=== PATIENT | male | born 1950 | race Caucasian/White ===

== ENCOUNTER → 2018-01-09 10:13 | Outpatient (CLI) | payer MEDICARE, SELFPAY ==
[2018-01-09 12:37] LABS: Free T4, Direct Thyroxine 0.96 ng/dL (0.78-2.19)
[2018-01-09 12:51] LABS: Thyroid Stimulating Hormone 0.05 uIU/mL (0.47-4.68)
== END ==
PROVIDERS: PCP Family Medicine; Visit Provider Nurse Practitioner
DX: E03.9 Hypothyroidism, unspecified (principal)
CPT/HCPCS: 36415; 84439; 84443

== ENCOUNTER → 2018-04-23 07:48 | Outpatient (CLI) | payer MEDICARE, SELFPAY ==
[2018-04-23 08:18] LABS: Add Manual Diff / Slide Review NO; Basophils Percent Auto 2.3 % (0-2); Eosinophils Percent Auto 5.6 % (2-4); Hematocrit 38.6 % (41-53); Hemoglobin 12.9 g/dL (13.5-17.5); Lymphocytes Percent Auto 28.8 % (25-40); Mean Corpuscular HGB Conc 33.5 % (30-36); Mean Corpuscular Hemoglobin 29.1 PG (26-34); Mean Corpuscular Volume 86.8 fL (80-100); Monocytes Percent Auto 6.4 % (3-14); Neutrophils Absolute Auto 3400 /uL (3000-5900); Neutrophils Percent Auto 56.9 % (50-75); Platelet Count 255 X10^3/uL (150-400); Red Blood Cell Count 4.45 X10^6/uL (4.5-5.9); Red Cell Distribution Width 13.6 % (11.6-14.8)
[2018-04-23 08:46] LABS: Alanine Aminotransferase 25 IU/L (21-72); Albumin 4.1 g/dL (3.5-5.0); Albumin Globulin Ratio 1.2 (1.0-2.8); Alkaline Phosphatase 62 U/L (38-126); Aspartate Aminotransferase 28 IU/L (17-59); BUN Creatinine Ratio 12.9 (6-22); Bilirubin Total 0.4 mg/dL (0.2-1.3); Blood Urea Nitrogen 18 mg/dL (9-20); Calcium 9.1 mg/dL (8.4-10.2); Carbon Dioxide 33 mmol/L (22-32); Chloride 102 mmol/L (98-107); Cholesterol 199 mg/dL (140-199); Estimated Glomerular Filt Rate 50.4 mL/min (>60); Globulin 3.4 g/dL (1.7-4.1); Glucose 86 mg/dL (80-110); HDL Cholesterol 47 mg/dL (40-60); HEMOLYSIS < 15 (0-50); LDL Cholesterol Calculated 131 mg/dL (<100); Potassium 4.3 mmol/L (3.4-5.1); Sodium 145 mmol/L (137-145); Total Protein 7.5 g/dL (6.3-8.2); Triglycerides 106 mg/dL (35-150)
[2018-04-23 09:14] LABS: TSH w/ Reflex to FT4 0.03 uIU/mL (0.47-4.68)
[2018-04-23 09:20] LABS: Prostate Specific Antigen Scrn < 0.064 ng/mL (0.1-4.0)
[2018-04-23 09:45] LABS: Free T4, Direct Thyroxine 0.89 ng/dL (0.78-2.19)
== END ==
PROVIDERS: Family Provider Nurse Practitioner; PCP Family Medicine; Referring Provider Internal Medicine Gastroenterology; Visit Provider Family Medicine
DX: E03.9 Hypothyroidism, unspecified (principal); E27.40 Unspecified adrenocortical insufficiency; N18.2 Chronic kidney disease, stage 2 (mild)
CPT/HCPCS: 36415; 80053; 80061; 84439; 84443; 85025; G0103

== ENCOUNTER 2018-07-12 00:39 | Emergency (ER) | payer MEDICARE, SELFPAY ==
[2018-07-12] VITALS (8 sets, daily range): BP systolic 73–132; BP diastolic 52–88; PULSE 62–85; RESP 16–21; TEMP 36.3–36.4; O2SAT 92–100; BMI 36.6
--- NOTE | 2018-07-12 00:44 | DI.RAD.S_ITS ---
PROCEDURE: XR CHEST 1V INDICATIONS: syncope TECHNIQUE: One view of the chest was acquired. COMPARISON: [facility], , CHEST 1 VIEW, 08/28/2017, 5:16. FINDINGS: Surgical changes and devices: None. Lungs and pleura: There is persistent elevation of left hemidiaphragm with chronic appearing left basilar scarring/atelectasis. Blunting of left costophrenic angle is again seen suggestive of trace left pleural effusion/thickening. No definite focal infiltrate. Mediastinum: Mediastinal contours appear normal. Heart size is enlarged. Bones and chest wall: No suspicious bony lesions. Overlying soft tissues appear unremarkable. IMPRESSION: Persistent elevation of left hemidiaphragm with chronic appearing trace left pleural thickening/pleural effusion and left basilar scarring/atelectasis. No definite focal infiltrate or gross pneumothorax. Dictated by: Patrick Valdez M.D. on 07/12/2018 at 9:59 Approved by: Patrick Valdez M.D. on 07/12/2018 at 10:00
--- NOTE | 2018-07-12 00:54 | DI.CT.S_ITS ---
PROCEDURE: CT ANGIO CHEST ABDOMEN PELVIS INDICATIONS: ab pain, back pain, syncope hypotension TECHNIQUE: Precontrast 5 mm thick sections acquired from the lung apices to the iliac crests. After the administration of intravenous contrast, 2.5 mm thick sections again acquired from the lung apices to the iliac crests. Maximum intensity projection (MIP) oblique sagittal and coronal reformats were then acquired. For radiation dose reduction, the following was used: automated exposure control. COMPARISON: [facility], CT, ABDOMEN/PELVIS WITH CONTRAST, 11/12/2016, 9:38. FINDINGS: Image quality: Excellent. AORTA: Ascending thoracic aorta measures up to 4.2 cm in largest AP diameter. Descending thoracic aorta measures up to 2.8 cm in largest AP diameter. Abdominal aorta measures up to 2.6 cm in largest AP diameter. There is no aortic dissection. Mild to moderate amount of atherosclerotic calcifications are seen scattered in thoracic and abdominal aorta. CHEST: Lungs and pleura: Atelectasis in posterior aspect of bilateral lower lung garcia are seen. Subtle hazy opacity is seen in posterior aspect of bilateral lung garcia suggestive of mild pulmonary edema. No pleural effusions or pneumothorax. Central and peripheral airways are patent and normal in caliber. Mediastinum: Heart size is enlarged. No pericardial effusion. No mediastinal or hilar adenopathy by size criteria. Central pulmonary arteries are normal in size. Esophagus is normal in caliber. No hiatal hernias. Bones and chest wall: No axillary adenopathy by size criteria. Thyroid gland is not well-visualized on this study. No suspicious bony lesions. No vertebral body compression fractures. ABDOMEN: Vasculature: Celiac trunk and mesenteric arteries are patent. Renal arteries are also patent. Solid organs: Liver is normal in size and enhancement. Hepatic steatosis is seen. Gallbladder is within normal limits. Biliary system is non dilated. Pancreas enhances normally. Spleen is normal in size and enhancement. No adrenal nodules. Right kidney is normal in size and enhancement, without hydronephrosis. Left kidney is surgically absent. Peritoneum and bowel: No free fluid or air. No evidence of bowel obstruction. Mild wall thickening involving sigmoid colon and rectum is seen with mild pericolonic fat stranding. No small bowel wall thickening. Nodes and vessels: No retroperitoneal or mesenteric adenopathy by size criteria. Inferior vena cava is normal in morphology. Miscellaneous: Nonobstructing ventral hernia is seen containing a short segment of small bowel. PELVIS: Genitourinary: The urinary bladder is near completely decompressed. No obvious bladder wall abnormality is seen.. Miscellaneous: Right inguinal hernia is seen containing fat and a portion of the urinary bladder. No inguinal lymphadenopathy. Bones: No suspicious bony lesions. No vertebral body compression fractures. IMPRESSION: 1. Mild ascending thoracic aortic aneurysm. No descending thoracic aortic or abdominal aortic aneurysm. No aortic dissection. 2. Suggestion of infectious inflammatory colitis involving the rectosigmoid colon. No bowel obstruction. No free fluid or free air. Liquid density stool throughout the colon which may suggest mild solution. 3. Bibasilar dependent atelectasis. Suggestion of mild pulmonary edema. Cardiac megaly. 4. Nonobstructive ventral hernia in abdomen containing a small bowel loop. Right inguinal hernia containing fat and portion of urinary bladder. 5. Prior left nephrectomy. No significant discrepancy. Dictated by: Patrick Valdez M.D. on 07/12/2018 at 9:11 Approved by: Patrick Valdez M.D. on 07/12/2018 at 9:18
[2018-07-12] MEDS: SODIUM CHLORIDE 0.9% 1,000 ML 1000 ML IV ×2 (00:58→02:09)
[2018-07-12 01:03] LABS: Add Manual Diff / Slide Review NO; Basophils Absolute Auto 0 /uL (0-100); Basophils Percent Auto 0.3 % (0-2); Eosinophils Absolute Auto 200 /uL (0-450); Eosinophils Percent Auto 1.3 % (2-4); Hematocrit 43.5 % (41-53); Hemoglobin 14.6 g/dL (13.5-17.5); Lymphocytes Absolute Auto 2500 /uL (1100-4500); Lymphocytes Percent Auto 15.8 % (25-40); Mean Corpuscular HGB Conc 33.5 % (30-36); Mean Corpuscular Hemoglobin 28.9 PG (26-34); Mean Corpuscular Volume 86.3 fL (80-100); Monocytes Absolute Auto 600 /uL (0-900); Monocytes Percent Auto 3.9 % (3-14); Neutrophils Absolute Auto 12500 /uL (1500-7000); Neutrophils Percent Auto 78.7 % (50-75); Platelet Count 298 X10^3/uL (150-400); Red Blood Cell Count 5.04 X10^6/uL (4.5-5.9); Red Cell Distribution Width 13.9 % (11.6-14.8); White Blood Cell Count 15.9 X10^3/uL (4.5-11.0)
[2018-07-12 01:08] LABS: Lactate (Lactic Acid) 1.3 mmol/L (0.7-2.1)
[2018-07-12 01:09] LABS: Alanine Aminotransferase 25 IU/L (21-72); Albumin 4.4 g/dL (3.5-5.0); Albumin Globulin Ratio 1.1 (1.0-2.8); Alkaline Phosphatase 81 U/L (38-126); Aspartate Aminotransferase 24 IU/L (17-59); BUN Creatinine Ratio 18.2 (6-22); Bilirubin Total 0.2 mg/dL (0.2-1.3); Blood Urea Nitrogen 31 mg/dL (9-20); Calcium 9.9 mg/dL (8.4-10.2); Carbon Dioxide 32 mmol/L (22-32); Chloride 97 mmol/L (98-107); Creatine Kinase 47 U/L (55-170); Estimated Glomerular Filt Rate 40.3 mL/min (>60); Globulin 3.9 g/dL (1.7-4.1); Glucose 96 mg/dL (80-110); HEMOLYSIS < 15 (0-50); Potassium 3.8 mmol/L (3.4-5.1); Sodium 140 mmol/L (137-145); Total Protein 8.3 g/dL (6.3-8.2)
[2018-07-12 01:18] LABS: Lipase 175 U/L (23-300)
[2018-07-12 01:21] LABS: Troponin I < 0.012 ng/mL (0.01-0.034)
[2018-07-12] MEDS: ONDANSETRON 4 MG/2 ML INJ IV (01:25)
[2018-07-12] MEDS: PANTOPRAZOLE 40 MG VIAL IV (01:35)
--- NOTE | 2018-07-12 01:50 | PC.NURSE ---
Pt became nauseated at completion of CT scan and vomited copious orange chunky emesis. Pt turned to left side to protect airway. Dr Carson notified, pt given 4mg zofran IV. 4 person assist to slide from CT table to gurney. Pt transported back to room by RN with tablet repair. Pt reports feeling much better after vomiting. Complete linen change done and pt cleaned up. VSS. Dr Carson aware of above.
--- NOTE | 2018-07-12 02:27 | ED_ITS ---
HPI - Syncope General Chief Complaint: Syncope Stated Complaint: syncope Time Seen by Provider: 07/12/18 00:43 Source: patient Mode of arrival: ambulatory Limitations: no limitations History of Present Illness HPI narrative: patient is a 68-year-old male who presents with 2 syncopal episodes and severe abdominal pain and diarrhea. He feels like he is going to throw up as well. This all started at 10:30 a.m. this evening. He was on the toilet when he passed out his had to slapped him to wake him up it was just for under minute. He then did a again which is when she called 911. Both times were separate on the toilet. He had least 3 episodes large amounts of diarrhea. He has also thrown up and been nauseous. No fever or chills. No one else is sick he was well earlier in the day. MD complaint: collapsed Related Data Home Medications Medication Instructions Recorded Confirmed cyanocobalamin (vitamin B-12) 1,000 mcg PO QDAY #0 tab 03/04/16 04/23/18 [Vitamin B-12] melatonin 3 mg PO HS #0 06/14/16 04/23/18 tamsulosin [Flomax] 0.4 mg PO QDAY #0 06/14/16 04/23/18 ascorbic acid (vitamin C) 500 mg mg PO cap 04/23/18 04/23/18 capsule cholecalciferol (vitamin D3) 2,000 2,000 unit PO DAILY 04/23/18 04/23/18 unit capsule lactobacillus combination no.4 3 3,000 mmu cells PO DAILY 04/23/18 04/23/18 billion cell capsule mesalamine 1.2 gram tablet,delayed 2.4 gram PO DAILY 04/23/18 04/23/18 release multivitamin capsule 1 cap PO DAILY 04/23/18 04/23/18 prednisolone 5 mg tablet 5 mg PO DAILY 04/23/18 04/23/18 Previous Rx's Medication Instructions Recorded loperamide 2 mg PO SEE INSTRUCTIONS #20 cap 05/31/16 ondansetron [Zofran ODT] 4 mg SUBLINGUAL Q6HP PRN #15 odt 05/31/16 hydrocortisone 10 tab PO SEE INSTRUCTIONS #120 tab 08/07/16 levothyroxine 88 mcg PO QDAY #30 tab 08/22/16 famciclovir 250 mg tablet 250 mg PO BID #60 tab 03/13/18 fluticasone 50 mcg/actuation nasal 1 spray INTRANASAL BID #1 bot 04/23/18 spray,suspension nystatin-triamcinolone 100,000 1 applictn TOP BID #60 gram 04/23/18 unit/g-0.1 % topical cream ondansetron 4 mg PO Q6-8H PRN #10 tab 07/12/18 Allergies Allergy/AdvReac Type Severity Reaction Status Date / Time cefazolin [CEFAZOLIN] Allergy Severe rash Unverified 04/23/18 11:18 levofloxacin [From LEVAQUIN] Allergy Mild Unverified 04/23/18 11:18 morphine [MORPHINE] Allergy Mild STOPPED Unverified 04/23/18 11:18 BREATHING. adhesive AdvReac Unknown Unverified 04/23/18 11:18 Review of Systems Review of Systems ROS Unobtainable: All systems reviewed & are unremarkable except as noted in HPI and below Constitutional Denies chills, Denies fever(s), Denies lethargy and Denies weakness Eyes Denies change in vision, Denies eye discharge, Denies irritation and Denies loss of vision Cardiovascular Reports syncope, Denies dyspnea and Denies dyspnea on exertion Respiratory Denies cough, Denies dyspnea, Denies dyspnea on exertion and Denies wheezing Gastrointestinal Gastrointestinal: Reports as per HPI, Reports abdominal pain, Reports diarrhea, Reports nausea and Reports vomiting Musculoskeletal Denies back pain, Denies muscle weakness, Denies numbness and Denies tingling Integumentary/Breasts Denies pruritus, Denies erythema, Denies rash and Denies wounds Neurologic Reports syncope, Denies loss of vision, Denies numbness, Denies tingling and Denies weakness Allergic/Immunologic Denies wheezing COUNTS INCLUDE 234 BEDS AT THE [facility] Medical History Small bowel obstruction (Chronic) Chronic adrenal insufficiency (Chronic 08/07/16) Onychomycosis (Chronic) Candidal intertrigo (Chronic) Acquired hypothyroidism (Chronic) Squamous cell carcinoma of oropharynx (Resolved) Ulcerative colitis (Chronic) 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 difficile colitis (Chronic ~06/2013) CMV (cytomegalovirus) status positive (Chronic) Pseudopolyp of ascending colon (Chronic) Squamous cell cancer of tongue (Chronic) Ulcerative colitis (Chronic) Surgical History Fractures (Resolved) History of neck surgery (Resolved ~2006) History of nephrectomy (~08/2015) History of third molar tooth extraction History of tonsillectomy (~1955) History of tonsillectomy (~1956) History of tonsillectomy (~1959) Status post colonoscopy Exam Initial Vital Signs Initial Vital Signs: Vital Signs Pulse Rate 63 07/12/18 00:48 Respiratory Rate 18 07/12/18 00:48 Blood Pressure 93/52 L 07/12/18 00:48 Pulse Oximetry 92 07/12/18 00:48 GENERAL: Pale overweight diaphoretic weak appearing male HEENT: Head atraumatic,EOMI, pupils reactive, face symmetric dry mucous membranes CARDIOVASCULAR: Regular rate and rhythm without murmurs, rubs or gallops. RESPIRATORY: Breath sounds equal bilaterally, no wheezes rales or rhonchi. ABDOMEN: Soft, obese, ventral hernia- reproducible, tender in epigastric no guarding or rebound no pulsatile masses EXTREMITIES: Normal range of motion, no clubbing or edema. Neurovascularly intact NEUROLOGICAL: Alert and oriented x4 normal speech SKIN: Warm, dry, no laceration, no petechiae, no rashes or lesions. Course Orders Ordered: ED Orders 07/12/18 00:44 XR chest 1V Stat EKG-12 Lead Stat 07/12/18 00:54 CT angio chest abdomen pelvis Stat 07/12/18 00:55 Complete Blood Count AUTO DIFF Stat Comprehensive Metabolic Panel Stat Lactate (Lactic Acid) Stat Lipase Stat Troponin & CK Cardiac Panel Stat Discontinued Medications Sodium Chloride (Normal Saline 0.9%) 1,000 mls @ 1,000 mls/hr IV BOLUS ONE Stop: 07/12/18 01:42 Last Infusion: 07/12/18 02:09 Dose: 0 mls/hr Admin: 07/12/18 00:58 Dose: 1,000 mls/hr Sodium Chloride (Normal Saline 0.9%) 1,000 mls @ 1,000 mls/hr IV BOLUS ONE Stop: 07/12/18 02:22 Last Infusion: 07/12/18 03:20 Dose: 0 mls/hr Admin: 07/12/18 02:09 Dose: 1,000 mls/hr Ondansetron HCl (Zofran) 4 mg IV NOW ONE Stop: 07/12/18 01:24 Last Admin: 07/12/18 01:25 Dose: 4 mg Ondansetron HCl (Zofran Odt Prepack) 1 bottle MISC SEEINSTR ONE Stop: 07/12/18 02:33 Last Admin: 07/12/18 02:44 Dose: 1 bottle Pantoprazole Sodium (Protonix) 40 mg IV NOW ONE Stop: 07/12/18 01:24 Last Admin: 07/12/18 01:35 Dose: 40 mg Vital Signs - 8 hr 07/12/18 00:48 07/12/18 00:58 07/12/18 01:00 Temperature 97.4 F L Pulse Rate 63 62 62 Respiratory Rate 18 20 21 Blood Pressure 93/52 L Blood Pressure [Left Arm] 81/59 L 73/55 L Pulse Oximetry 92 94 94 07/12/18 01:49 07/12/18 02:01 07/12/18 02:30 Temperature Pulse Rate 67 67 69 Respiratory Rate 16 16 18 Blood Pressure Blood Pressure [Left Arm] 109/77 132/74 122/78 Pulse Oximetry 95 92 100 07/12/18 03:20 07/12/18 03:21 Temperature 97.6 F Pulse Rate 83 85 Respiratory Rate 20 18 Blood Pressure 124/88 Blood Pressure [Left Arm] Pulse Oximetry 94 95 MDM - Syncope Medical Records Attestation: I reviewed the patient's medical records. Lab Data Attestation: I reviewed the patient's lab results. Result diagrams: 07/12/18 00:55 07/12/18 00:55 Lab Results 07/12/18 07/12/18 07/12/18 Range/Units 00:55 00:55 00:55 WBC 15.9 H (4.5-11.0) X10^3/uL RBC 5.04 (4.5-5.9) X10^6/uL Hgb 14.6 (13.5-17.5) g/dL Hct 43.5 (41-53) % MCV 86.3 (80-100) fL MCH 28.9 (26-34) PG MCHC 33.5 (30-36) % RDW 13.9 (11.6-14.8) % Plt Count 298 (150-400) X10^3/uL Neut % (Auto) 78.7 H (50-75) % Lymph % (Auto) 15.8 L (25-40) % [place] % (Auto) 3.9 (3-14) % Eos % (Auto) 1.3 L (2-4) % Baso % (Auto) 0.3 (0-2) % Neut # (Auto) 24105 H (2975-4499) /uL Lymph # (Auto) 2500 (6464-6005) /uL [place] # (Auto) 600 (0-900) /uL Eos # (Auto) 200 (0-450) /uL Baso # (Auto) 0 (0-100) /uL Sodium (137-145) mmol/L Potassium (3.4-5.1) mmol/L Chloride (98-107) mmol/L Carbon Dioxide (22-32) mmol/L BUN (9-20) mg/dL Creatinine (0.66-1.25) mg/dL Estimated GFR (>60) mL/min BUN/Creatinine Ratio (6-22) Glucose (80-110) mg/dL Lactate 1.3 (0.7-2.1) mmol/L Calcium (8.4-10.2) mg/dL Total Bilirubin (0.2-1.3) mg/dL AST (17-59) IU/L ALT (21-72) IU/L Alkaline Phosphatase (38-126) U/L Total Creatine Kinase (55-170) U/L CK-MB (CK-2) CK-MB (CK-2) Rel Index Troponin I (0.01-0.034) ng/mL Total Protein (6.3-8.2) g/dL Albumin (3.5-5.0) g/dL Globulin (1.7-4.1) g/dL Albumin/Globulin Ratio (1.0-2.8) Lipase 175 (23-300) U/L 07/12/18 Range/Units 00:55 WBC (4.5-11.0) X10^3/uL RBC (4.5-5.9) X10^6/uL Hgb (13.5-17.5) g/dL Hct (41-53) % MCV (80-100) fL MCH (26-34) PG MCHC (30-36) % RDW (11.6-14.8) % Plt Count (150-400) X10^3/uL Neut % (Auto) (50-75) % Lymph % (Auto) (25-40) % [place] % (Auto) (3-14) % Eos % (Auto) (2-4) % Baso % (Auto) (0-2) % Neut # (Auto) (0073-4188) /uL Lymph # (Auto) (7118-9403) /uL [place] # (Auto) (0-900) /uL Eos # (Auto) (0-450) /uL Baso # (Auto) (0-100) /uL Sodium 140 (137-145) mmol/L Potassium 3.8 (3.4-5.1) mmol/L Chloride 97 L (98-107) mmol/L Carbon Dioxide 32 (22-32) mmol/L BUN 31 H (9-20) mg/dL Creatinine 1.70 H (0.66-1.25) mg/dL Estimated GFR 40.3 L (>60) mL/min BUN/Creatinine Ratio 18.2 (6-22) Glucose 96 (80-110) mg/dL Lactate (0.7-2.1) mmol/L Calcium 9.9 (8.4-10.2) mg/dL Total Bilirubin 0.2 (0.2-1.3) mg/dL AST 24 (17-59) IU/L ALT 25 (21-72) IU/L Alkaline Phosphatase 81 (38-126) U/L Total Creatine Kinase 47 L (55-170) U/L CK-MB (CK-2) TNP CK-MB (CK-2) Rel Index TNP Troponin I < 0.012 (0.01-0.034) ng/mL Total Protein 8.3 H (6.3-8.2) g/dL Albumin 4.4 (3.5-5.0) g/dL Globulin 3.9 (1.7-4.1) g/dL Albumin/Globulin Ratio 1.1 (1.0-2.8) Lipase (23-300) U/L Point of Care Testing Glucose POC 102 Imaging Data Chest x-ray: Attestation: I personally reviewed and interpreted this imaging study as follows: My impression: similar to previous chest x-ray a left pleural effusion versus stomach CT angio chest abdomen pelvis: Radiologist's impression: mini shifter report: Negative for aortic dissection /leak. Ectasias of ascending thoracic aorta. Retro sigmoid protocol colitis be related to infection or inflammatory bowel. There is liquid into the stool throughout the colon and rectum consistent with malabsorption diarrhea. Normal caliber appendix. No free air abscess or evidence of mechanical bowel obstruction. Nonobstructive but ventral hernia in the abdomen contained a small bowel loop. Subsegmental ate;ectatoc changes of the lower lungs. Left nephrectomy. Right inguinal hernia contains fat and part of right urinary bladder. Left inguinal hernia contains fat. ECG Data Attestation: I personally reviewed and interpreted this ECG as follows: Prior ECG tracings: available for review Interpretation: sinus rhythm rate 64 appear interval [address] changes MDM Narrative Medical decision making narrative: patient had a syncopal reactions while having bowel movements. This is consistent with vasovagal reaction. He was persistently hypotensive is and diaphoretic with some abdominal discomfort. Decision to rule out aneurysm is with CT. CT is negative. While in CT patient vomited a low large amount of copious fluid. Since then his blood pressure has returned to normal he an he is overall feeling better. He is tolerating oral fluids. He is ambulatory to the restroom no longer feels dizzy or lightheaded. Patient blood pressure has been above 100 consistently. Patient and both feel ready and able to go home. All questions have been addressed. Discharge Plan Departure Patient Disposition: Home Clinical Impression: Gastroenteritis, Syncope Discharge Date/Time: 07/12/18 03:25 Interventions: ED Discharge Assessment Last Done: 07/12/18 03:21 Instructions: DI for Syncope in Adults (Fainting), DI for Viral Gastroenteritis -- Adult Activity Restrictions/Additional Instructions: *You have been diagnosed with syncopal episode and gastroenteritis *What to do: increase fluid intake recommend Gatorade or Gatorade like substance *Continue to take medications as directed: FAXED TO [facility] Zofran 4 mg every 6-8 hours if needed for nausea vomiting *Follow up with your primary care provider in 2-3 days *Return to ER if you should have inability to tolerate fluids, increasing abdominal pain is, recurrent episodes of passing out any new, worsening or concerning symptoms Prescriptions: New ondansetron 4 mg tablet,disintegrating 4 mg PO Q6-8H PRN (Reason: nausea and vomiting) Qty: 10 RF: 0 No Action cyanocobalamin (vitamin B-12) [Vitamin B-12] 500 MCG tablet 1,000 mcg PO QDAY Qty: 0 RF: 0 loperamide 2 MG capsule 2 mg PO SEE INSTRUCTIONS Qty: 20 RF: 0 ondansetron [Zofran ODT] 4 MG tablet,disintegrating 4 mg Sublingual Q6HP PRNQty: 15 RF: 0 melatonin 3 MG tablet 3 mg PO HS Qty: 0 RF: 0 tamsulosin [Flomax] 0.4 MG capsule,extended release 24hr 0.4 mg PO QDAY Qty: 0 RF: 0 hydrocortisone 10 MG tablet 10 tab PO SEE INSTRUCTIONS Qty: 120 RF: 1 levothyroxine 88 MCG tablet 88 mcg PO QDAY Qty: 30 RF: 0 famciclovir 250 mg tablet 250 mg PO BID Qty: 60 RF: 1 mesalamine [Lialda] 1.2 gram tablet,delayed release (DR/EC) 2.4 gram PO DAILY RF: 0 prednisolone 5 mg tablet 5 mg PO DAILY RF: 0 lactobacillus combination no.4 [Probiotic] 3 billion cell capsule 3,000 mmu cells PO DAILY RF: 0 ascorbic acid (vitamin C) 500 mg capsule PO RF: 0 multivitamin capsule 1 cap PO DAILY RF: 0 cholecalciferol (vitamin D3) 2,000 unit capsule 2,000 unit PO DAILY RF: 0 nystatin-triamcinolone 100,000-0.1 unit/g-% cream 1 applictn TOP BID Qty: 60 RF: 0 fluticasone 50 mcg/actuation spray,suspension 1 spray Intranasal BID Qty: 1 RF: 0 Referrals: Monica Collins DO [Primary Care Provider] -
[2018-07-12] MEDS: ONDANSETRON 4 MG ODT PREPACK 1 BOTTLE MISC (02:44)
== END 2018-07-12 03:25 | disposition home or self-care (01) ==
PROVIDERS: Emergency Provider Emergency Medicine; Family Provider Nurse Practitioner; PCP Family Medicine
DX: K52.9 Noninfective gastroenteritis and colitis, unspecified (principal); R55 Syncope and collapse
CPT/HCPCS: 36591; 71045; 71275; 74174; 80053; 82550; 82962; 83605; 83690; 84484; 85025; 93005; 93010; 96361; 96374; 96375; 99284; 99285; 99291; 99292; C9113; J2405; Q9967

== ENCOUNTER 2018-07-23 14:45 | Emergency (ER) | payer MEDICARE, SELFPAY ==
[2018-07-23 15:00] VITALS: BP 146/70; PULSE 73; RESP 20; TEMP 36.6; O2SAT 95; BMI 37.6
--- NOTE | 2018-07-23 15:50 | ED.URI ---
HPI - URI/Sore Throat <AMA Matthews - Last Filed: 07/23/18 22:07> General Chief Complaint: Upper Respiratory Symptoms Stated Complaint: seen at walk in for a cold,sent over for weakness Time Seen by Provider: 07/23/18 14:48 Source: patient Mode of arrival: ambulatory Limitations: no limitations History of Present Illness HPI Narrative: 68-year-old male with history of hypothyroidism and is a former smoker here for complaint of having nasal congestion cough headache and generalized malaise over the past 4-5 days. He is tolerating p.o. fluid intake. No abdominal pain. He denies any chest pain or shortness of breath. He is concerned that his potassium may be low as he has had low potassium in the past due to ulcerative colitis. He thinks that he may have had some fevers over the past couple of days as well as chills. Related Data Home Medications Medication Instructions Recorded Confirmed cyanocobalamin (vitamin B-12) 1,000 mcg PO QDAY #0 tab 03/04/16 07/23/18 [Vitamin B-12] cholecalciferol (vitamin D3) 2,000 2,000 unit PO DAILY 04/23/18 07/23/18 unit capsule multivitamin capsule 1 cap PO DAILY 04/23/18 07/23/18 prednisolone 5 mg tablet 2.5 mg PO BID 04/23/18 07/23/18 ascorbic acid (vitamin C) 500 mg PO DAILY 07/23/18 07/23/18 famciclovir 250 mg PO BID PRN 07/23/18 07/23/18 fluticasone 1 spray INTRANASAL BID PRN 07/23/18 07/23/18 lactobacillus comb no.10 2 cap PO DAILY 07/23/18 07/23/18 [Probiotic] levothyroxine 75 mcg PO DAILY 07/23/18 07/23/18 magnesium 200 mg PO DAILY 07/23/18 07/23/18 mesalamine [Lialda] 2.4 g PO DAILY 07/23/18 07/23/18 turmeric 600 mg PO DAILY 07/23/18 07/23/18 Previous Rx's Medication Instructions Recorded nystatin-triamcinolone 100,000 1 applictn TOP BID #60 gram 04/23/18 unit/g-0.1 % topical cream ondansetron 4 mg PO Q6-8H PRN #10 tab 07/12/18 Allergies Allergy/AdvReac Type Severity Reaction Status Date / Time cefazolin [CEFAZOLIN] Allergy Severe rash Verified 07/23/18 15:05 levofloxacin [From LEVAQUIN] Allergy Mild Verified 07/23/18 15:05 morphine [MORPHINE] Allergy Mild STOPPED Verified 07/23/18 15:05 BREATHING. adhesive AdvReac Unknown Verified 07/23/18 15:05 Review of Systems <AMA Matthews - Last Filed: 07/23/18 22:07> Constitutional Reports chills, Reports fever(s), Denies lethargy and Denies weakness Eyes Denies change in vision, Denies eye discharge, Denies irritation and Denies loss of vision ENT Ears, Nose, Mouth, and Throat: Denies change in voice, Reports nasal congestion, Denies neck pain, Denies sore throat and Denies throat swelling Cardiovascular Denies chest pain, Denies irregular heart rhythm, Denies lightheadedness, Denies palpitations and Denies orthopnea Respiratory Reports cough and Denies wheezing Gastrointestinal Gastrointestinal: Denies abdominal pain, Denies change in bowel habits, Denies diarrhea, Denies nausea and Denies vomiting Genitourinary Denies hematuria, Denies flank pain, Denies urinary incontinence and Denies urinary urgency Musculoskeletal Denies neck pain Integumentary/Breasts Denies pruritus, Denies erythema, Denies rash and Denies wounds Neurologic Denies confusion, Denies loss of vision and Denies weakness Psychiatric Denies anxiety, Denies confusion, Denies depression, Denies homicidal ideation and Denies suicidal ideation Endocrine Denies palpitations Hematologic/Lymphatic Denies easy bruising Allergic/Immunologic Denies urticaria, Denies throat swelling and Denies wheezing Exam <AMA Matthews - Last Filed: 07/23/18 22:07> Initial Vital Signs Initial Vital Signs: Vital Signs Temperature 97.8 F 07/23/18 15:00 Pulse Rate 73 07/23/18 15:00 Respiratory Rate 20 07/23/18 15:00 Blood Pressure 146/70 H 07/23/18 15:00 Pulse Oximetry 95 07/23/18 15:00 Const General: cooperative and well developed Nutritional Appearance: well nourished Orientation: alert, awake, oriented x3 and not confused HENMT Mouth: oral mucosae normal and moist mucous membranes Throat: posterior oropharynx normal Eyes Conjunctivae: conjunctivae normal Sclera: sclerae normal Pupils: PERRL EOM: EOM intact bilaterally Chest Chest: normal inspection of the chest Resp Effort & Inspection: normal respiratory effort, able to speak in complete sentences, no respiratory distress and no use of accessory muscles Auscultation: clear to auscultation bilaterally, no rales, no rhonchi and no wheezes Cardio Rate: regular rate Rhythm: regular rhythm Heart Sounds: no click, no gallops, no murmurs and no rubs GI Inspection: non-distended Palpation: soft, no hepatosplenomegaly, No guarding, No pulsatile mass and No tender Auscultation: normal bowel sounds Skin General: no rashes or lesions noted, No jaundice and No petechiae Neuro General: alert, oriented x3, gait normal and no focal motor deficits Speech: speech normal <Ashley Carson DO - Last Filed: 07/27/18 20:51> Initial Vital Signs Initial Vital Signs: Vital Signs Temperature 97.8 F 07/23/18 15:00 Pulse Rate 73 07/23/18 15:00 Respiratory Rate 20 07/23/18 15:00 Blood Pressure 146/70 H 07/23/18 15:00 Pulse Oximetry 95 07/23/18 15:00 Course <AMA Matthews - Last Filed: 07/23/18 22:07> Orders Ordered: ED Orders 07/23/18 14:59 Influenza A and B by PCR Rapid Stat 07/23/18 16:11 XR chest 1V Stat 07/23/18 16:34 Complete Blood Count AUTO DIFF Stat Comprehensive Metabolic Panel Stat Vital Signs - 8 hr 07/23/18 15:00 07/23/18 16:55 07/23/18 18:35 Temperature 97.8 F Pulse Rate 73 62 72 Respiratory Rate 20 16 Blood Pressure 146/70 H 125/67 Blood Pressure [Right Arm] 129/50 L Pulse Oximetry 95 92 96 <Ashley Carson DO - Last Filed: 07/27/18 20:51> Orders Ordered: ED Orders 07/23/18 14:59 Influenza A and B by PCR Rapid Stat 07/23/18 16:11 XR chest 1V Stat 07/23/18 16:34 Complete Blood Count AUTO DIFF Stat Comprehensive Metabolic Panel Stat Vital Signs - 8 hr 07/23/18 15:00 07/23/18 16:55 07/23/18 18:35 Temperature 97.8 F Pulse Rate 73 62 72 Respiratory Rate 20 16 Blood Pressure 146/70 H 125/67 Blood Pressure [Right Arm] 129/50 L Pulse Oximetry 95 92 96 MDM - URI/Sore Throat <AMA Matthews - Last Filed: 07/23/18 22:07> Lab Data Result diagrams: 07/23/18 16:34 07/23/18 16:34 Lab Results 07/23/18 07/23/18 07/23/18 Range/Units 14:59 16:34 16:34 WBC 6.6 (4.5-11.0) X10^3/uL RBC 4.54 (4.5-5.9) X10^6/uL Hgb 13.1 L (13.5-17.5) g/dL Hct 39.7 L (41-53) % MCV 87.5 (80-100) fL MCH 28.9 (26-34) PG MCHC 33.1 (30-36) % RDW 14.0 (11.6-14.8) % Plt Count 211 (150-400) X10^3/uL Neut % (Auto) 72.0 (50-75) % Lymph % (Auto) 14.5 L (25-40) % [place] % (Auto) 9.1 (3-14) % Eos % (Auto) 3.6 (2-4) % Baso % (Auto) 0.8 (0-2) % Neut # (Auto) 4800 (8234-2595) /uL Lymph # (Auto) 1000 L (9264-3561) /uL [place] # (Auto) 600 (0-900) /uL Eos # (Auto) 200 (0-450) /uL Baso # (Auto) 100 (0-100) /uL Sodium 138 (137-145) mmol/L Potassium 4.0 (3.4-5.1) mmol/L Chloride 98 (98-107) mmol/L Carbon Dioxide 33 H (22-32) mmol/L BUN 24 H (9-20) mg/dL Creatinine 1.50 H (0.66-1.25) mg/dL Estimated GFR 46.5 L (>60) mL/min BUN/Creatinine Ratio 16.0 (6-22) Glucose 98 (80-110) mg/dL Calcium 9.7 (8.4-10.2) mg/dL Total Bilirubin 0.4 (0.2-1.3) mg/dL AST 25 (17-59) IU/L ALT 24 (21-72) IU/L Alkaline Phosphatase 67 (38-126) U/L Total Protein 7.7 (6.3-8.2) g/dL Albumin 4.1 (3.5-5.0) g/dL Globulin 3.6 (1.7-4.1) g/dL Albumin/Globulin Ratio 1.1 (1.0-2.8) Influenza A & B (PCR) Negative (Negative) Imaging Data Chest x-ray: Radiologist's impression: [address] [address] XRay Report Signed Patient: Aleksandar Bay [facility]#: [id number] : 1950Acct:[id number] Age/Sex: 68 / MDate of Service: 07/23/18 Loc: ED Accession Number: [id number] Procedure: XR chest 1V Ordering Provider: Fer King PROCEDURE: XR CHEST 1V INDICATIONS: for 5 days Cold and cough symptoms TECHNIQUE: One view of the chest was acquired. COMPARISON: [facility], CR, CHEST 1 VIEW, 08/28/2017, 5:16. [facility], CT, CT ANGIO CHEST ABDOMEN PELVIS, 07/12/2018, 0:56. [facility], CR, XR CHEST 1V, 07/12/2018, 0:51. FINDINGS: Surgical changes and devices: None. Lungs and pleura: There is elevation of the left hemidiaphragm with linear left basilar opacities likely representing atelectasis. There is blunting of the left costophrenic angle compatible pleural thickening redemonstrated. No new focal consolidation. No definite pleural effusions or pneumothorax. Mediastinum: Mediastinal contours appear unchanged. Heart size is normal. Bones and chest wall: No suspicious bony lesions. Overlying soft tissues appear unremarkable. IMPRESSION: 1. No evidence of pneumonia. Dictated by: Chris Manuel M.D. on 07/23/2018 at 16:24 Approved by: Chris Manuel M.D. on 07/23/2018 at 16:25 [facility] Narrative Medical decision making narrative: CBC was obtained and was unremarkable. Chemistry shows decreased GFR of 46.5 and a creatinine of 1.5 this is consistent with his prior lab values. Otherwise chemistry panel was unremarkable. Influenza swab was obtained was negative. Chest x-ray was obtained and was negative for any acute findings. Signs and symptoms presents as viral upper respiratory infection. Plenty of fluids. [id number] Tylenol as needed for fever or discomfort. Follow up with primary care provider next week. For any worsening symptoms return emergency room. Saline irrigation to nasal passages to help with congestion. <Ashley Carson, DO - Last Filed: 07/27/18 20:51> Lab Data Lab Results 07/23/18 07/23/18 07/23/18 Range/Units 14:59 16:34 16:34 WBC 6.6 (4.5-11.0) X10^3/uL RBC 4.54 (4.5-5.9) X10^6/uL Hgb 13.1 L (13.5-17.5) g/dL Hct 39.7 L (41-53) % MCV 87.5 (80-100) fL MCH 28.9 (26-34) PG MCHC 33.1 (30-36) % RDW 14.0 (11.6-14.8) % Plt Count 211 (150-400) X10^3/uL Neut % (Auto) 72.0 (50-75) % Lymph % (Auto) 14.5 L (25-40) % [place] % (Auto) 9.1 (3-14) % Eos % (Auto) 3.6 (2-4) % Baso % (Auto) 0.8 (0-2) % Neut # (Auto) 4800 (7453-5405) /uL Lymph # (Auto) 1000 L (4095-5044) /uL [place] # (Auto) 600 (0-900) /uL Eos # (Auto) 200 (0-450) /uL Baso # (Auto) 100 (0-100) /uL Sodium 138 (137-145) mmol/L Potassium 4.0 (3.4-5.1) mmol/L Chloride 98 (98-107) mmol/L Carbon Dioxide 33 H (22-32) mmol/L BUN 24 H (9-20) mg/dL Creatinine 1.50 H (0.66-1.25) mg/dL Estimated GFR 46.5 L (>60) mL/min BUN/Creatinine Ratio 16.0 (6-22) Glucose 98 (80-110) mg/dL Calcium 9.7 (8.4-10.2) mg/dL Total Bilirubin 0.4 (0.2-1.3) mg/dL AST 25 (17-59) IU/L ALT 24 (21-72) IU/L Alkaline Phosphatase 67 (38-126) U/L Total Protein 7.7 (6.3-8.2) g/dL Albumin 4.1 (3.5-5.0) g/dL Globulin 3.6 (1.7-4.1) g/dL Albumin/Globulin Ratio 1.1 (1.0-2.8) Influenza A & B (PCR) Negative (Negative) Discharge Plan Departure Patient Disposition: Home Clinical Impression: Upper respiratory infection, viral Discharge Date/Time: 07/23/18 18:35 Interventions: ED Discharge Assessment Last Done: 07/23/18 18:35 Instructions: DI for Viral Upper Respiratory Infection -- Adult Activity Restrictions/Additional Instructions: Laboratory results show mild decreased renal function however is consistent with prior lab values. Otherwise laboratory results were unremarkable. Influenza swab was negative. Chest x-ray was negative for any acute findings. Signs and symptoms presents as a viral upper respiratory infection. Plenty of fluids and rest. Saline irrigation and nasal passages to help with nasal congestion and hot showers. Follow up with her primary care provider next week return emergency room for any worsening symptoms. [id number] Tylenol as needed for discomfort or fever. Prescriptions: No Action cyanocobalamin (vitamin B-12) [Vitamin B-12] 500 MCG tablet 1,000 mcg PO QDAY Qty: 0 RF: 0 prednisolone 5 mg tablet 2.5 mg PO BID RF: 0 multivitamin capsule 1 cap PO DAILY RF: 0 cholecalciferol (vitamin D3) 2,000 unit capsule 2,000 unit PO DAILY RF: 0 nystatin-triamcinolone 100,000-0.1 unit/g-% cream 1 applictn TOP BID Qty: 60 RF: 0 levothyroxine 75 mcg tablet 75 mcg PO DAILY RF: 0 mesalamine [Lialda] 1.2 gram Tablet,Delayed Release (Dr/Ec) 2.4 g PO DAILY RF: 0 lactobacillus comb no.10 [Probiotic] 20 billion cell Capsule 2 cap PO DAILY RF: 0 famciclovir 250 mg tablet 250 mg PO BID PRN (Reason: herpes zoster) RF: 0 fluticasone 50 mcg/actuation spray,suspension 1 spray Intranasal BID PRN (Reason: Congestion) RF: 0 ascorbic acid (vitamin C) 500 mg Tablet,Chewable 500 mg PO DAILY RF: 0 magnesium 200 mg Tablet 200 mg PO DAILY RF: 0 turmeric 300 mg 600 mg PO DAILY RF: 0 ondansetron 4 mg tablet,disintegrating 4 mg PO Q6-8H PRN (Reason: nausea and vomiting) Qty: 10 RF: 0 Referrals: Moinca Collins DO [Primary Care Provider] - <Ashley Carson DO - Last Filed: 07/27/18 20:51> Cosign ED Attending Cosignature Attestation: I was immediately available in the department for consultation. Documentation has been reviewed. I agree with assessment and plan.
--- NOTE | 2018-07-23 16:11 | DI.RAD.S_ITS ---
PROCEDURE: XR CHEST 1V INDICATIONS: for 5 days Cold and cough symptoms TECHNIQUE: One view of the chest was acquired. COMPARISON: [facility], CR, CHEST 1 VIEW, 08/28/2017, 5:16. [facility], CT, CT ANGIO CHEST ABDOMEN PELVIS, 07/12/2018, 0:56. [facility], CR, XR CHEST 1V, 07/12/2018, 0:51. FINDINGS: Surgical changes and devices: None. Lungs and pleura: There is elevation of the left hemidiaphragm with linear left basilar opacities likely representing atelectasis. There is blunting of the left costophrenic angle compatible pleural thickening redemonstrated. No new focal consolidation. No definite pleural effusions or pneumothorax. Mediastinum: Mediastinal contours appear unchanged. Heart size is normal. Bones and chest wall: No suspicious bony lesions. Overlying soft tissues appear unremarkable. IMPRESSION: 1. No evidence of pneumonia. Dictated by: Chris Manuel M.D. on 07/23/2018 at 16:24 Approved by: Chris Manuel M.D. on 07/23/2018 at 16:25
[2018-07-23 16:18] LABS: Influenza A and B by PCR Rapid Negative (Negative)
[2018-07-23 16:41] LABS: Add Manual Diff / Slide Review NO; Basophils Absolute Auto 100 /uL (0-100); Basophils Percent Auto 0.8 % (0-2); Eosinophils Absolute Auto 200 /uL (0-450); Eosinophils Percent Auto 3.6 % (2-4); Hematocrit 39.7 % (41-53); Hemoglobin 13.1 g/dL (13.5-17.5); Lymphocytes Absolute Auto 1000 /uL (1100-4500); Lymphocytes Percent Auto 14.5 % (25-40); Mean Corpuscular HGB Conc 33.1 % (30-36); Mean Corpuscular Hemoglobin 28.9 PG (26-34); Mean Corpuscular Volume 87.5 fL (80-100); Monocytes Absolute Auto 600 /uL (0-900); Monocytes Percent Auto 9.1 % (3-14); Neutrophils Absolute Auto 4800 /uL (1500-7000); Platelet Count 211 X10^3/uL (150-400); Red Blood Cell Count 4.54 X10^6/uL (4.5-5.9); White Blood Cell Count 6.6 X10^3/uL (4.5-11.0)
--- NOTE | 2018-07-23 16:42 | PC.NURSE ---
gave pt some pudding to take his pills with and a dentures cup for his dentures.
[2018-07-23 16:53] LABS: Alanine Aminotransferase 24 IU/L (21-72); Albumin 4.1 g/dL (3.5-5.0); Albumin Globulin Ratio 1.1 (1.0-2.8); Alkaline Phosphatase 67 U/L (38-126); Aspartate Aminotransferase 25 IU/L (17-59); Bilirubin Total 0.4 mg/dL (0.2-1.3); Blood Urea Nitrogen 24 mg/dL (9-20); Calcium 9.7 mg/dL (8.4-10.2); Carbon Dioxide 33 mmol/L (22-32); Chloride 98 mmol/L (98-107); Estimated Glomerular Filt Rate 46.5 mL/min (>60); Globulin 3.6 g/dL (1.7-4.1); Glucose 98 mg/dL (80-110); HEMOLYSIS < 15 (0-50); Sodium 138 mmol/L (137-145); Total Protein 7.7 g/dL (6.3-8.2)
[2018-07-23 16:55] VITALS: BP 129/50; PULSE 62; RESP 16; O2SAT 92
[2018-07-23 18:35] VITALS: BP 125/67; PULSE 72; O2SAT 96
== END 2018-07-23 18:35 | disposition home or self-care (01) ==
PROVIDERS: Emergency Provider Nurse Practitioner Family; Family Provider Nurse Practitioner; PCP Family Medicine
DX: J06.9 Acute upper respiratory infection, unspecified (principal)
CPT/HCPCS: 36415; 71045; 80053; 85025; 87400; 99282; 99284

== ENCOUNTER → 2018-08-26 09:56 | Outpatient (CLI) | payer MEDICARE, SELFPAY ==
--- NOTE | 2018-08-26 09:59 | DI.US.S_ITS ---
PROCEDURE: US ABD AORTA ANEURYSM SCREEN INDICATIONS: AAA screening for aortic aneurysm TECHNIQUE: Real time scanning was performed of the aorta and iliac arteries, with image documentation. COMPARISON: None. FINDINGS: Aorta: Proximal aortic diameter measures 2.9 cm. Mid-aorta measures 2.5 cm. Distal aortic diameter is not seen, due to overlying bowel gas. Iliac arteries: Not seen due to bowel gas.. IMPRESSION: The upper and middle thirds of the aorta appear normal but the lower third of the aorta and the iliac arteries were obscured by bowel gas. Dictated by: Norberto Christianson M.D. on 08/26/2018 at 11:04 Approved by: Norberto Christianson M.D. on 08/26/2018 at 11:06
== END ==
PROVIDERS: PCP Family Medicine; Visit Provider Family Medicine
DX: Z13.6 Encounter for screening for cardiovascular disorders (principal); M81.0 Age-related osteoporosis without current pathological fracture; E07.9 Disorder of thyroid, unspecified; K51.90 Ulcerative colitis, unspecified, without complications; N18.2 Chronic kidney disease, stage 2 (mild); Z79.52 Long term (current) use of systemic steroids; Z87.891 Personal history of nicotine dependence
CPT/HCPCS: 76706; 77080

== ENCOUNTER 2018-09-10 17:07 | Inpatient (IN) | payer MEDICARE, SELFPAY ==
[2018-09-10 17:05] VITALS: BP 144/67; PULSE 91; RESP 17; TEMP 36.8; O2SAT 94
--- NOTE | 2018-09-10 17:10 | ED.SYNCOPE ---
HPI - Syncope General Chief Complaint: Syncope Stated Complaint: Near Syncope Time Seen by Provider: 09/10/18 17:09 Source: patient, family, EMS and old records reviewed Mode of arrival: EMS History of Present Illness HPI narrative: The patient is a 68-year-old male who presents with syncopal episode. He has had syncopal episodes associated with bowel movements past his. He was seen and evaluated here in June for the last 1. A today he said he was not feeling well at all he could did not get out of bed. He then had a syncopal episode large nonbloody bowel movements. His according to EMS he was quite hypotensive. They do run on him frequently he does not always want to come to the hospital for to the ED. He denies chest pains or heart palpitations or shortness of breath. He does have a mild audible wheezing. He denies any abdominal pain nausea or vomiting. MD complaint: loss of consciousness -: second(s) Related Data Home Medications Medication Instructions Recorded Confirmed cyanocobalamin (vitamin B-12) 1,000 mcg PO DAILY #0 tab 03/04/16 09/10/18 [Vitamin B-12] cholecalciferol (vitamin D3) 2,000 2,000 unit PO DAILY 04/23/18 09/10/18 unit capsule multivitamin capsule 1 cap PO DAILY 04/23/18 09/10/18 ascorbic acid (vitamin C) 500 mg PO DAILY 07/23/18 09/10/18 famciclovir 250 mg PO BID PRN 07/23/18 09/10/18 fluticasone propionate 1 spray INTRANASAL BID PRN 07/23/18 09/10/18 lactobacillus comb no.10 2 cap PO DAILY 07/23/18 09/10/18 [Probiotic] levothyroxine 75 mcg PO DAILY 07/23/18 09/10/18 magnesium 200 mg PO DAILY 07/23/18 09/10/18 mesalamine [Lialda] 2.4 g PO DAILY 07/23/18 09/10/18 turmeric 600 mg PO DAILY 07/23/18 09/10/18 prednisone 2.5 mg tablet 2.5 mg PO BID 08/21/18 09/10/18 Iron Complex 1 tab PO DAILY 09/10/18 09/10/18 melatonin 3 mg PO BEDTIME PRN 09/10/18 09/10/18 Previous Rx's Medication Instructions Recorded ondansetron 4 mg PO Q6-8H PRN #10 tab 07/12/18 fluconazole 200 mg tablet 200 mg PO .weekly #4 tab 08/21/18 nystatin-triamcinolone 100,000 1 applictn TOP BID #60 gram 08/21/18 unit/g-0.1 % topical cream Allergies Allergy/AdvReac Type Severity Reaction Status Date / Time cefazolin [CEFAZOLIN] Allergy Severe rash Verified 08/21/18 14:11 levofloxacin [From LEVAQUIN] Allergy Mild Verified 08/21/18 14:11 morphine [MORPHINE] Allergy Mild STOPPED Verified 08/21/18 14:11 BREATHING. Review of Systems Review of Systems ROS Unobtainable: All systems reviewed & are unremarkable except as noted in HPI and below Constitutional Denies chills, Denies fever(s), Denies lethargy and Denies weakness Cardiovascular Denies chest pain, Reports syncope, Denies irregular heart rhythm and Denies dyspnea Respiratory Denies dyspnea Gastrointestinal Gastrointestinal: Denies abdominal pain, Denies change in bowel habits, Reports diarrhea, Denies nausea and Denies vomiting Genitourinary Denies hematuria, Denies flank pain, Denies urinary incontinence and Denies urinary urgency Musculoskeletal Denies back pain, Denies muscle weakness, Denies numbness and Denies tingling Integumentary/Breasts Denies pruritus, Denies erythema, Denies rash and Denies wounds Neurologic Reports syncope, Denies numbness, Denies tingling and Denies weakness [facility] Medical History Small bowel obstruction (Chronic) Chronic adrenal insufficiency (Chronic 08/07/16) Onychomycosis (Chronic) Candidal intertrigo (Chronic) Acquired hypothyroidism (Chronic) Squamous cell carcinoma of oropharynx (Resolved) Ulcerative colitis (Chronic) 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 difficile colitis (Chronic ~06/2013) CMV (cytomegalovirus) status positive (Chronic) Pseudopolyp of ascending colon (Chronic) Squamous cell cancer of tongue (Chronic) Ulcerative colitis (Chronic) Social History Smoking Status: Former smoker Exam Initial Vital Signs Initial Vital Signs: Vital Signs Temperature 98.2 F 09/10/18 17:05 Pulse Rate 91 H 09/10/18 17:05 Respiratory Rate 17 09/10/18 17:05 Blood Pressure 144/67 H 09/10/18 17:05 Pulse Oximetry 94 09/10/18 17:05 GENERAL: Alert overweight elderly male follows commands AND IN NO ACUTE DISTRESS. HEENT: HEAD ATRAUMATIC,EOMI, PUPILS REACTIVE, FACE SYMMETRIC, dry MUCOUS MEMBRANES CARDIOVASCULAR: REGULAR RATE AND RHYTHM WITHOUT MURMURS, RUBS OR GALLOPS. RESPIRATORY: BREATH SOUNDS EQUAL BILATERALLY, NO WHEEZES RALES OR RHONCHI. ABDOMEN: SOFT, NONTENDER. NORMOACTIVE BOWEL SOUNDS ALL 4 QUADRANTS. NO GUARDING OR REBOUND. : NO CVA TENDERNESS EXTREMITIES: NORMAL RANGE OF MOTION, NO CLUBBING OR EDEMA. NEUROVASCULARLY INTACT NEUROLOGICAL: ALERT AND ORIENTED. Follows commands squeezes fingers equally bilaterally moving both extremities SKIN: WARM, DRY, NO LACERATION, NO PETECHIAE, NO RASHES OR LESIONS. Course Orders Ordered: ED Orders 09/10/18 17:11 EKG-12 Lead Stat 09/10/18 17:20 Complete Blood Count AUTO DIFF Stat Comprehensive Metabolic Panel Stat Troponin & CK Cardiac Panel Stat 09/10/18 18:00 Lactate (Lactic Acid) Stat 09/10/18 18:52 GI Panel (Film Array) Stat Discontinued Medications Sodium Chloride (Normal Saline 0.9%) 1,000 mls @ 1,000 mls/hr IV BOLUS ONE Stop: 09/10/18 18:10 Last Admin: 09/10/18 18:28 Dose: 1,000 mls/hr Vital Signs - 8 hr 09/10/18 17:05 09/10/18 17:30 09/10/18 18:21 Temperature 98.2 F 98.2 F Pulse Rate 91 H 90 90 Respiratory Rate 17 18 18 Blood Pressure 144/67 H 144/67 H Blood Pressure [Right Arm] 130/94 H Pulse Oximetry 94 94 94 09/10/18 18:30 Temperature Pulse Rate 80 Respiratory Rate 20 Blood Pressure Blood Pressure [Right Arm] 121/46 L Pulse Oximetry 97 MDM - Syncope Medical Records Attestation: I reviewed the patient's medical records. Lab Data Attestation: I reviewed the patient's lab results. Result diagrams: 09/10/18 17:20 09/10/18 17:20 Lab Results 09/10/18 09/10/18 09/10/18 Range/Units 17:20 17:20 18:00 WBC 8.2 (4.5-11.0) X10^3/uL RBC 5.12 (4.5-5.9) X10^6/uL Hgb 14.7 (13.5-17.5) g/dL Hct 44.9 (41-53) % MCV 87.8 (80-100) fL MCH 28.8 (26-34) PG MCHC 32.8 (30-36) % RDW 14.7 (11.6-14.8) % Plt Count 220 (150-400) X10^3/uL Neut % (Auto) 76.8 H (50-75) % Lymph % (Auto) 12.5 L (25-40) % [place] % (Auto) 8.6 (3-14) % Eos % (Auto) 1.4 L (2-4) % Baso % (Auto) 0.7 (0-2) % Neut # (Auto) 6300 (0843-3892) /uL Lymph # (Auto) 1000 L (6210-4952) /uL [place] # (Auto) 700 (0-900) /uL Eos # (Auto) 100 (0-450) /uL Baso # (Auto) 100 (0-100) /uL Sodium 140 (137-145) mmol/L Potassium 3.6 (3.4-5.1) mmol/L Chloride 94 L (98-107) mmol/L Carbon Dioxide 33 H (22-32) mmol/L BUN 21 H (9-20) mg/dL Creatinine 2.00 H (0.66-1.25) mg/dL Estimated GFR 33.4 L (>60) mL/min BUN/Creatinine Ratio 10.5 (6-22) Glucose 86 (80-110) mg/dL Lactate 1.5 (0.7-2.1) mmol/L Calcium 9.8 (8.4-10.2) mg/dL Total Bilirubin 0.7 (0.2-1.3) mg/dL AST 33 (17-59) IU/L ALT 38 (21-72) IU/L Alkaline Phosphatase 74 (38-126) U/L Total Creatine Kinase 39 L (55-170) U/L CK-MB (CK-2) TNP CK-MB (CK-2) Rel Index TNP Troponin I < 0.012 (0.01-0.034) ng/mL Total Protein 8.5 H (6.3-8.2) g/dL Albumin 4.5 (3.5-5.0) g/dL Globulin 4.0 (1.7-4.1) g/dL Albumin/Globulin Ratio 1.1 (1.0-2.8) Point of Care Testing Glucose POC 179 ECG Data Attestation: I personally reviewed and interpreted this ECG as follows: Prior ECG tracings: available for review Interpretation: Sinus rhythm rate 89 pain Q-waves noted in leads 3 similar to previous EKG no ST elevations or depressions MDM Narrative Medical decision making narrative: Patient's creatinine is elevated at 2.0 increased from previous. His states that there are numerous bowel movements in the bed. He has had recurrent syncopal episodes without a diagnosis. All episodes seem to be associated with bowel movements she states that he passes out after the bowel movement. This time she is hesitant to take him home. He is clinically dehydrated with an increased creatinine and a dry mouth. Patient has no focal deficits follows commands he does not have a headache at this time I do not believe head CT to be warranted. accepts for observation. Discharge Plan Departure Patient Disposition: Admitted as Observation Clinical Impression: Acute dehydration Syncope Qualifiers: Syncope type: unspecified Qualified Code(s): R55 - Syncope and collapse Admit Date/Time: 09/10/18 19:02 Admit Provider: Monica Collins
[2018-09-10 17:30] VITALS: BP 130/94; PULSE 90; RESP 18; O2SAT 94
[2018-09-10 17:33] LABS: Add Manual Diff / Slide Review NO; Basophils Absolute Auto 100 /uL (0-100); Basophils Percent Auto 0.7 % (0-2); Eosinophils Absolute Auto 100 /uL (0-450); Eosinophils Percent Auto 1.4 % (2-4); Hematocrit 44.9 % (41-53); Hemoglobin 14.7 g/dL (13.5-17.5); Lymphocytes Absolute Auto 1000 /uL (1100-4500); Lymphocytes Percent Auto 12.5 % (25-40); Mean Corpuscular HGB Conc 32.8 % (30-36); Mean Corpuscular Hemoglobin 28.8 PG (26-34); Mean Corpuscular Volume 87.8 fL (80-100); Monocytes Absolute Auto 700 /uL (0-900); Monocytes Percent Auto 8.6 % (3-14); Neutrophils Absolute Auto 6300 /uL (1500-7000); Neutrophils Percent Auto 76.8 % (50-75); Platelet Count 220 X10^3/uL (150-400); Red Blood Cell Count 5.12 X10^6/uL (4.5-5.9); Red Cell Distribution Width 14.7 % (11.6-14.8); White Blood Cell Count 8.2 X10^3/uL (4.5-11.0)
[2018-09-10 17:49] LABS: Alanine Aminotransferase 38 IU/L (21-72); Albumin 4.5 g/dL (3.5-5.0); Albumin Globulin Ratio 1.1 (1.0-2.8); Alkaline Phosphatase 74 U/L (38-126); Aspartate Aminotransferase 33 IU/L (17-59); BUN Creatinine Ratio 10.5 (6-22); Bilirubin Total 0.7 mg/dL (0.2-1.3); Blood Urea Nitrogen 21 mg/dL (9-20); Calcium 9.8 mg/dL (8.4-10.2); Carbon Dioxide 33 mmol/L (22-32); Chloride 94 mmol/L (98-107); Creatine Kinase 39 U/L (55-170); Estimated Glomerular Filt Rate 33.4 mL/min (>60); Glucose 86 mg/dL (80-110); HEMOLYSIS < 15 (0-50); Potassium 3.6 mmol/L (3.4-5.1); Sodium 140 mmol/L (137-145); Total Protein 8.5 g/dL (6.3-8.2)
[2018-09-10 18:00] LABS: Troponin I < 0.012 ng/mL (0.01-0.034)
[2018-09-10 18:20] LABS: Lactate (Lactic Acid) 1.5 mmol/L (0.7-2.1)
[2018-09-10 18:21] VITALS: BP 144/67; PULSE 90; RESP 18; TEMP 36.8; O2SAT 94
[2018-09-10] MEDS: SODIUM CHLORIDE 0.9% 1,000 ML 1000 ML IV (18:28)
[2018-09-10 18:30] VITALS: BP 121/46; PULSE 80; RESP 20; O2SAT 97
[2018-09-10 19:28] VITALS: BMI 35.9
[2018-09-10] MEDS: DEXTROSE 5%-0.45% NS 1,000 ML 150 ML IV (19:48)
--- NOTE | 2018-09-10 19:56 | PC.NURSE ---
Audra shift note: Patient admitted to room 206 from ED, awake and alert, very weak and thirsty. Transferred to bed with sliding board. Large incontinent watery stool noted. Completely linen and new brief. Noted with incontinent associated dermatitis to perineum, no broken skin, redness blanches. Redness to panus folds. Shelli at bedside providing supportive care. Bed alarm active, call light within reach. Oriented to room, environment, and plan of care.
[2018-09-10 20:26] VITALS: BP 105/52; PULSE 79; RESP 16; TEMP 36.4; O2SAT 92
[2018-09-10] MEDS: NYSTATIN/TRIAMCIN CREAM 15 GM 1 APPLIC TOP (20:54)
[2018-09-10] MEDS: predniSONE 2.5 MG TABLET PO (20:55)
[2018-09-10 23:10] LABS: Adenovirus F 40/41 Not Detected (Not Detect); Astrovirus Not Detected (Not Detect); Campylobacter Not Detected (Not Detect); Clostridium difficile toxin AB Not Detected (Not Detect); Cryptosporidium Not Detected (Not Detect); Cyclospora cayetanensis Not Detected (Not Detect); Entamoeba histolytica Not Detected (Not Detect); Enteroaggregative E.coli Not Detected (Not Detect); Enteropathogenic E.coli Not Detected (Not Detect); Enterotoxigenic E.coli It/st Not Detected (Not Detect); Giardia lamblia Not Detected (Not Detect); Norovirus GI/GII Not Detected (Not Detect); Plesiomonsa shigelloides Not Detected (Not Detect); Rotavirus A Not Detected (Not Detect); Salmonella Not Detected (Not Detect); Sapovirus Not Detected (Not Detect); Shiga-like toxin-prod E.coli Not Detected (Not Detect); Shigella/Enteroinvasive E.coli Not Detected (Not Detect); Vibrio Not Detected (Not Detect); Vibrio cholerae Not Detected (Not Detect); Yersinia enterocolitica Not Detected (Not Detect)
[2018-09-10 23:15] VITALS: BP 97/52; PULSE 74; RESP 20; TEMP 36.7; O2SAT 95
[2018-09-11] VITALS (15 sets, daily range): BP systolic 85–120; BP diastolic 40–63; PULSE 62–72; RESP 15–24; TEMP 36.1–37.5; O2SAT 93–98
[2018-09-11] MEDS: SODIUM CHLORIDE 0.9% 1,000 ML 1000 ML IV ×4 (01:21→12:05)
[2018-09-11] MEDS: LOPERAMIDE 2 MG CAPSULE PO ×3 (01:21→08:31)
[2018-09-11 02:29] LABS: Clostridium Difficile Tox PCR Negative for C. diff
--- NOTE | 2018-09-11 04:04 | DI.RAD.S_ITS ---
PROCEDURE: XR CHEST 1V INDICATIONS: Shortness of breath, cough, yellow mucous TECHNIQUE: One view of the chest was acquired. COMPARISON: [facility], CR, XR CHEST 1V, 07/23/2018, 16:15. FINDINGS: Surgical changes and devices: None. Lungs and pleura: Stable eventration of the left hemidiaphragm. There is a small left pleural effusion. Patchy consolidation of the left lung base, new since the prior study. No pneumothorax. Mediastinum: Cardiomediastinal contours are stable. Bones and chest wall: No suspicious bony lesions. Overlying soft tissues appear unremarkable. IMPRESSION: New left lung base consolidation with small left pleural effusion likely related to airspace disease/pneumonia. Recommend followup chest radiograph 4-6 weeks after treatment to document return to baseline exam. Dictated by: Naveen Hahn M.D. on 09/11/2018 at 9:16 Approved by: Naveen Hahn M.D. on 09/11/2018 at 9:19
--- NOTE | 2018-09-11 04:47 | PC.NURSE ---
Addendum entered by Jessica Olivera R.N. 09/11/18 04:49: 0400 Patient had 3 hours without diarrhea. New episode of diarrhea at 0400. Patient hypotensive 88/42. Bladder scan results with 0mls. Patient also coughing up thick yellow mucous. Dr. Collins notified at 0405 via phone. New NS bolus orders received and implemented. Chest x-ray ordered. Original Note: Diarrhea-incontinent Patient having multiple episodes of incontinent diarrhea between [address] Collins notified of patient condition and new orders received. NS bolus and imodium PO ordered.
[2018-09-11] MEDS: DEXTROSE 5%-0.45% NS 1,000 ML 150 ML IV ×3 (05:21→21:03)
--- NOTE | 2018-09-11 05:50 | PC.NURSE ---
STAT chest x-ray results showed L lower lobe infiltrate with moderate sized L pleural effusion. Dr. Collins made aware via phone at [phone]. Awaiting new orders.
[2018-09-11] MEDS: LEVOTHYROXINE 75 MCG TABLET PO (06:10)
--- NOTE | 2018-09-11 06:28 | PC.NURSE ---
Patient lungs sounds no longer diminished. Patient lungs wet sounding. Patient remains on 2l NC oxygen.
[2018-09-11 07:12] LABS: Add Manual Diff / Slide Review NO; Basophils Absolute Auto 0 /uL (0-100); Basophils Percent Auto 0.5 % (0-2); Eosinophils Absolute Auto 100 /uL (0-450); Eosinophils Percent Auto 1.5 % (2-4); Hematocrit 36.6 % (41-53); Lymphocytes Absolute Auto 800 /uL (1100-4500); Lymphocytes Percent Auto 11.2 % (25-40); Mean Corpuscular HGB Conc 32.9 % (30-36); Mean Corpuscular Hemoglobin 28.8 PG (26-34); Mean Corpuscular Volume 87.6 fL (80-100); Monocytes Absolute Auto 600 /uL (0-900); Monocytes Percent Auto 8.8 % (3-14); Neutrophils Absolute Auto 5600 /uL (1500-7000); Platelet Count 171 X10^3/uL (150-400); Red Blood Cell Count 4.18 X10^6/uL (4.5-5.9); Red Cell Distribution Width 14.8 % (11.6-14.8); White Blood Cell Count 7.1 X10^3/uL (4.5-11.0)
[2018-09-11 07:32] LABS: Blood Urea Nitrogen 24 mg/dL (9-20); Calcium 8.1 mg/dL (8.4-10.2); Carbon Dioxide 25 mmol/L (22-32); Chloride 100 mmol/L (98-107); Estimated Glomerular Filt Rate 33.4 mL/min (>60); Glucose 96 mg/dL (80-110); HEMOLYSIS 17 (0-50); Magnesium 1.7 mg/dL (1.6-2.3); Potassium 3.7 mmol/L (3.4-5.1); Sodium 134 mmol/L (137-145)
[2018-09-11 07:45] LABS: B Type Natriuretic Peptide < 100 (<100)
--- NOTE | 2018-09-11 07:45 | P.HP_ITS ---
History of Present Illness Date Patient Seen: 09/11/18 Time Patient Seen: 07:43 Chief complaint: Near Syncope Narrative: Patient is a 68 yo male with ulcerative colitis, single kidney, adrenal insufficiency here today after syncopal episode after frequent eqpisodes of watery diarrhea. Patient tells me that he started feeling poorly about 5-6 days ago but nothing specific until yesterday when he had repeated episodes of diarrhea and became increasingly weak and unable to get up. He also says that he has had a productive cough of yellow sputum since yesterday as well. He is feeling a little better this morning after 3 L of fluid. He tells me that he still is weak. Still has significant diarrhea with urgency. 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 difficile colitis (Chronic ~06/2013) CMV (cytomegalovirus) status positive (Chronic) Pseudopolyp of ascending colon (Chronic) Squamous cell cancer of tongue (Chronic) Ulcerative colitis (Chronic) Family & Social History Safety & Behavioral: Feels Safe in Current Yes Environment Been Physically Hurt or No Threatened By a Person Suicidal Ideation Description None Tobacco & Substance use: Smoking Status Former smoker alcohol intake frequency 0-2 drinks per day Substance Use Type does not use Meds Home Medications Medication Instructions Recorded Confirmed Type cyanocobalamin (vitamin B-12) 1,000 mcg PO DAILY #0 tab 03/04/16 09/10/18 History [Vitamin B-12] cholecalciferol (vitamin D3) 2,000 2,000 unit PO DAILY 04/23/18 09/10/18 History unit capsule multivitamin capsule 1 cap PO DAILY 04/23/18 09/10/18 History ondansetron 4 mg PO Q6-8H PRN #10 tab 07/12/18 09/10/18 Rx ascorbic acid (vitamin C) 500 mg PO DAILY 07/23/18 09/10/18 History famciclovir 250 mg PO BID PRN 07/23/18 09/10/18 History fluticasone propionate 1 spray INTRANASAL BID PRN 07/23/18 09/10/18 History lactobacillus comb no.10 2 cap PO DAILY 07/23/18 09/10/18 History [Probiotic] levothyroxine 75 mcg PO DAILY 07/23/18 09/10/18 History magnesium 200 mg PO DAILY 07/23/18 09/10/18 History mesalamine [Lialda] 2.4 g PO DAILY 07/23/18 09/10/18 History turmeric 600 mg PO DAILY 07/23/18 09/10/18 History fluconazole 200 mg tablet 200 mg PO .weekly #4 tab 08/21/18 09/10/18 Rx nystatin-triamcinolone 100,000 1 applictn TOP BID #60 gram 08/21/18 09/10/18 Rx unit/g-0.1 % topical cream prednisone 2.5 mg tablet 2.5 mg PO BID 08/21/18 09/10/18 History Iron Complex 1 tab PO DAILY 09/10/18 09/10/18 History melatonin 3 mg PO BEDTIME PRN 09/10/18 09/10/18 History Allergies Allergy/AdvReac Type Severity Reaction Status Date / Time cefazolin [CEFAZOLIN] Allergy Severe rash Verified 08/21/18 14:11 levofloxacin [From LEVAQUIN] Allergy Mild Verified 08/21/18 14:11 morphine [MORPHINE] Allergy Mild STOPPED Verified 08/21/18 14:11 BREATHING. Review of Systems Constitutional Constitutional: Reports body ache(s), Reports chills, Denies fever(s), Reports lack of energy and Reports malaise Cardiovascular Cardiovascular: Reports system reviewed; no additional complaints, except as documented and Reports lightheadedness Respiratory Respiratory: Reports as per HPI Gastrointestinal Gastrointestinal: Reports as per HPI, Denies coffee ground emesis, Denies cramp ing, Reports fecal incontinence, Denies nausea and Denies vomiting Genitourinary Genitourinary: Reports as per HPI and Reports oliguria Musculoskeletal Musculoskeletal: Reports system reviewed; no additional complaints, except as documented Neurologic Neurologic: Reports system reviewed and no additional complaints, except as documented Exam Vital Signs (past 8 hours): - 09/11/18 04:39 09/11/18 04:45 Temperature 98.2 F Pulse Rate 72 65 Respiratory Rate 22 15 Blood Pressure 88/42 L 116/62 Pulse Oximetry 97 95 Oxygen Delivery Method Nasal Cannula Oxygen Flow Rate 2 Narrative Exam Narrative: General: Well-developed, well-nourished, pale-appearing male, no acute distress. Heart: Regular rate and rhythm, no murmurs appreciated Lungs: Diminished in the posterior bases, a cough any over the left posterior lung, no particular wheezes Abd: BS+, soft, nontender, nondistended, no rebound, no guarding Extremities: Warm and well perfused, no edema Objective Labs Result Diagrams: 09/11/18 06:25 09/11/18 12:25 Labs: Laboratory Results - last 24 hr 09/10/18 09/10/18 09/10/18 17:20 17:20 17:45 WBC 8.2 RBC 5.12 Hgb 14.7 Hct 44.9 MCV 87.8 MCH 28.8 MCHC 32.8 RDW 14.7 Plt Count 220 Neut % (Auto) 76.8 H Lymph % (Auto) 12.5 L [place] % (Auto) 8.6 Eos % (Auto) 1.4 L Baso % (Auto) 0.7 Neut # (Auto) 6300 Lymph # (Auto) 1000 L [place] # (Auto) 700 Eos # (Auto) 100 Baso # (Auto) 100 Sodium 140 Potassium 3.6 Chloride 94 L Carbon Dioxide 33 H BUN 21 H Creatinine 2.00 H Estimated GFR 33.4 L BUN/Creatinine Ratio 10.5 Glucose 86 Lactate Calcium 9.8 Magnesium Total Bilirubin 0.7 AST 33 ALT 38 Alkaline Phosphatase 74 Total Creatine Kinase 39 L CK-MB (CK-2) TNP CK-MB (CK-2) Rel Index TNP Troponin I < 0.012 Total Protein 8.5 H Albumin 4.5 Globulin 4.0 Albumin/Globulin Ratio 1.1 Stl C. cayetanensis PCR Not detected Stool Rotavirus (PCR) Not detected Stool Adenovirus (PCR) Not detected Stool Astrovirus (PCR) Not detected Stool Cryptosporidium PCR Not detected Stl E.coli Shiga Tox PCR Not detected St Sh/Enteroin Ecoli PCR Not detected Stool E coli O157 PCR Not detected Stl Enterotoxigenic E PCR Not detected Stool EPEC (PCR) Not detected Stl E. histolytica PCR Not detected Stool Giardia Lamblia PCR Not detected Stool Sapovirus (PCR) Not detected Stl P. shigelloides PCR Not detected St Y.enterocolitica PCR Not detected Stool Vibrio (PCR) Not detected Stl Vibrio cholerae PCR Not detected Stl Enteroaggr Ecoli PCR Not detected Stl Norovirus GI/GII PCR Not detected Campylobacter (PCR) Not detected C. difficile Tox (PCR) Not detected Salmonella (PCR) Not detected 09/10/18 09/11/18 09/11/18 18:00 01:26 06:25 WBC 7.1 RBC 4.18 L Hgb 12.0 L Hct 36.6 L MCV 87.6 MCH 28.8 MCHC 32.9 RDW 14.8 Plt Count 171 Neut % (Auto) 78.0 H Lymph % (Auto) 11.2 L [place] % (Auto) 8.8 Eos % (Auto) 1.5 L Baso % (Auto) 0.5 Neut # (Auto) 5600 Lymph # (Auto) 800 L [place] # (Auto) 600 Eos # (Auto) 100 Baso # (Auto) 0 Sodium Potassium Chloride Carbon Dioxide BUN Creatinine Estimated GFR BUN/Creatinine Ratio Glucose Lactate 1.5 Calcium Magnesium Total Bilirubin AST ALT Alkaline Phosphatase Total Creatine Kinase CK-MB (CK-2) CK-MB (CK-2) Rel Index Troponin I Total Protein Albumin Globulin Albumin/Globulin Ratio Stl C. cayetanensis PCR Stool Rotavirus (PCR) Stool Adenovirus (PCR) Stool Astrovirus (PCR) Stool Cryptosporidium PCR Stl E.coli Shiga Tox PCR St Sh/Enteroin Ecoli PCR Stool E coli O157 PCR Stl Enterotoxigenic E PCR Stool EPEC (PCR) Stl E. histolytica PCR Stool Giardia Lamblia PCR Stool Sapovirus (PCR) Stl P. shigelloides PCR St Y.enterocolitica PCR Stool Vibrio (PCR) Stl Vibrio cholerae PCR Stl Enteroaggr Ecoli PCR Stl Norovirus GI/GII PCR Campylobacter (PCR) C. difficile Tox (PCR) Negative for c. diff Salmonella (PCR) 09/11/18 06:25 WBC RBC Hgb Hct MCV MCH MCHC RDW Plt Count Neut % (Auto) Lymph % (Auto) [place] % (Auto) Eos % (Auto) Baso % (Auto) Neut # (Auto) Lymph # (Auto) [place] # (Auto) Eos # (Auto) Baso # (Auto) Sodium 134 L Potassium 3.7 Chloride 100 Carbon Dioxide 25 BUN 24 H Creatinine 2.00 H Estimated GFR 33.4 L BUN/Creatinine Ratio 12.0 Glucose 96 Lactate Calcium 8.1 L Magnesium 1.7 Total Bilirubin AST ALT Alkaline Phosphatase Total Creatine Kinase CK-MB (CK-2) CK-MB (CK-2) Rel Index Troponin I Total Protein Albumin Globulin Albumin/Globulin Ratio Stl C. cayetanensis PCR Stool Rotavirus (PCR) Stool Adenovirus (PCR) Stool Astrovirus (PCR) Stool Cryptosporidium PCR Stl E.coli Shiga Tox PCR St Sh/Enteroin Ecoli PCR Stool E coli O157 PCR Stl Enterotoxigenic E PCR Stool EPEC (PCR) Stl E. histolytica PCR Stool Giardia Lamblia PCR Stool Sapovirus (PCR) Stl P. shigelloides PCR St Y.enterocolitica PCR Stool Vibrio (PCR) Stl Vibrio cholerae PCR Stl Enteroaggr Ecoli PCR Stl Norovirus GI/GII PCR Campylobacter (PCR) C. difficile Tox (PCR) Salmonella (PCR) Assessment & Plan Assessment & Plan narrative: Patient has history of ulcerative colitis, nephrectomy, adrenal insufficiency, c. diff infection presenting with hypotension responsive to fluids, diarrhea, productive cough. Hypotension and oliguria from dehydration secondary to significant GI losses. He initially improved with a liter of fluid in the ED but then continued to have hypotension subsequently requiring 5 liters of saline in boluses. Now making clear urine and maintaining pressures. Will continue on fluids overnight. Diarrhea. GI panel totally negative. C. diff negative times two. guaiac negative. Improved with loperamide which will continue. UC flare but symptoms not consistent with patient's normal UC flares. Prednisone for this and pneumonia both. Influenza pneumonia. Pneumonia on chest xray. Initially given a dose of ampicillin/azithromycin until viral panel showed influenza infection. stopped antibiotics and started tamiflu. prednisone given. Acute renal failure on chronic kidney disease stage 3. Improved after hydration. Continue mccall at least overnight to determine accurate urine output. Will monitor. Hypokalemia. K-carlos given. check in the am. Ulcerative colitis. continue mesalamine. Adrenal insufficiency. currently receiving 50 mg prednisone daily. Will return him back to 2.5 mg BID after acute illness has resolved. Code status: full code DVT prophylaxis: lovenox Disposition: home with spouse. Given his acute presentation anticipate that he will require an additional 24-72 hours of care. Time Spent With Patient Time with patient: Greater than 35 minutes
[2018-09-11 07:57] LABS: Thyroid Stimulating Hormone 0.37 uIU/mL (0.47-4.68)
[2018-09-11] MEDS: AMPICILLIN 500 MG in SODIUM CHLORIDE 0.9% 100 ML 200 ML IV ×2 (08:31→14:06)
[2018-09-11] MEDS: LACTOBACILLUS ACIDOPHILUS TABLET 2 EACH PO (08:31)
[2018-09-11] MEDS: predniSONE 20 MG TABLET 50 MG PO (09:46)
[2018-09-11] MEDS: AZITHROMYCIN 500 MG in DEXTROSE 5% IN WATER 250 ML IV (09:46)
[2018-09-11] MEDS: MESALAMINE 2.4 GM 2.4 EACH PO (09:46)
[2018-09-11] MEDS: ALBUTEROL 2.5 MG/3 ML NEB (ADULT) INH ×2 (10:00→14:32)
[2018-09-11] MEDS: LOPERAMIDE 2 MG CAPSULE 4 MG PO (11:49)
[2018-09-11 12:03] LABS: Bacteria Urine None Seen; WBC Urine None Seen (0-5/HPF)
[2018-09-11 12:11] LABS: Appearance Urine UA CLEAR; Bilirubin Urine UA NEGATIVE (NEGATIVE); Color Urine UA YELLOW; Glucose Urine UA NEGATIVE (Negative); Ketones Urine UA NEGATIVE (NEGATIVE); Leukocyte Esterase Urine UA NEGATIVE (NEGATIVE); Nitrite Urine UA NEGATIVE (Negative); Occult Blood Urine UA 1+ (Negative); Protein Urine UA 1+ (Negative); Specific Gravity Urine UA 1.025 (1.000-1.035); Urobilinogen Urine UA 0.2 E.U./dL (0.2)
--- NOTE | 2018-09-11 12:11 | PC.NURSE ---
PATIENT TRANSF TO ICU: SHIFT SUMMARY: 2 WATERY BM'S THIS AM, MODERATE TO LARGE VOLUME, GUAIAC NEG. ZINC EPC CREAM APPLIED TO MOISTURE/STOOL ASSOCIATED DERMATITIS. IMMODIUM GIVEN PER MD ORDER. CLARIFIED THAT THE SCHEDULED 4MG DOSE SHOULD ALSO BE GIVEN WITH THE PRN'S HE HAS ALREADY HAD. AT 1130 PATIENT SLEEPING, AWAKES EASILY, EXTREMITIES COOL, BP 80/44 HR 65. MD NOTIFIED. STILL NO UOP SINCE ADMIT. MD NOTIFIED. ORDERED UA, ROY, 2L BOLUS NS TO RUN CONCURRENTLY, WHICH WAS STARTED. UA SENT, RESP ASSAY SWAB SENT. ROY W/ RETURN OF LIGHT RANDALL URINE. REPORT GIVEN TO STEPHANIE IN ICU.
[2018-09-11 12:17] LABS: Granular Casts Urine 1-5/LPF; Hyaline Casts Urine 1-5/LPF; RBC Urine 1-5/HPF (0-5/HPF)
[2018-09-11 12:18] LABS: Culture Indicated Urine Cult Not Indicated
[2018-09-11 12:52] LABS: BUN Creatinine Ratio 12.7 (6-22); Blood Urea Nitrogen 19 mg/dL (9-20); Carbon Dioxide 23 mmol/L (22-32); Chloride 100 mmol/L (98-107); Estimated Glomerular Filt Rate 46.5 mL/min (>60); Glucose 324 mg/dL (80-110); HEMOLYSIS < 15 (0-50); Potassium 3.2 mmol/L (3.4-5.1); Sodium 132 mmol/L (137-145)
[2018-09-11 13:15] LABS: Adenovirus Not Detected (Not Detect); Coronavirus 229E Not Detected (Not Detect); Coronavirus HKU1 Not Detected (Not Detect); Coronavirus NL 63 Not Detected (Not Detect); Coronavirus OC43 Not Detected (Not Detect); Human Metapneumovirus Not Detected (Not Detect); Human Rhinovirus/Enterovirus Not Detected (Not Detect)
[2018-09-11 13:16] LABS: Bordetella pertussis Not Detected (Not Detect); Chlamydophila pneumoniae Not Detected (Not Detect); Influenza A Detected (Not Detect); Influenza B Not Detected (Not Detect); Mycoplasma pneumoniae Not Detected (Not Detect); Parainfluenza Virus 1 Not Detected (Not Detect); Parainfluenza Virus 2 Not Detected (Not Detect); Parainfluenza Virus 3 Not Detected (Not Detect); Parainfluenza Virus 4 Not Detected (Not Detect); Respiratory Syncytial Virus Not Detected (Not Detect)
--- NOTE | 2018-09-11 13:44 | PC.NURSE ---
pt alert/oriented transferred from med surg floor for hypotension- initial bp 113/58- then slight decrease to 92 systolic but this was during his clear liquid meal in which the ivf was turned off ( per pt request) b/p increased to 110 sys.- mccall with adequte uop - dark in color - and lab results returned as positive for influenza A- isolation initiated
[2018-09-11] MEDS: POTASSIUM CHLORIDE 40 MEQ in SODIUM CHLORIDE 0.9% 500 ML 130 ML IV (14:31)
[2018-09-11] MEDS: OSELTAMIVIR 75 MG CAPSULE PO ×2 (14:31→21:05)
[2018-09-11] MEDS: ENOXAPARIN 40 MG/0.4 ML SYRINGE SUBCUT (21:03)
[2018-09-11] MEDS: NYSTATIN/TRIAMCIN CREAM 15 GM 1 APPLIC TOP (21:05)
[2018-09-12] VITALS (8 sets, daily range): BP systolic 127–145; BP diastolic 62–93; PULSE 56–75; RESP 12–22; TEMP 36–36.6; O2SAT 94–100
[2018-09-12] MEDS: DEXTROSE 5%-0.45% NS 1,000 ML 150 ML IV (03:47)
[2018-09-12 05:07] LABS: Add Manual Diff / Slide Review NO; Basophils Absolute Auto 0 /uL (0-100); Basophils Percent Auto 0.1 % (0-2); Eosinophils Absolute Auto 0 /uL (0-450); Hematocrit 35.9 % (41-53); Hemoglobin 11.7 g/dL (13.5-17.5); Lymphocytes Absolute Auto 700 /uL (1100-4500); Lymphocytes Percent Auto 9.4 % (25-40); Mean Corpuscular HGB Conc 32.5 % (30-36); Mean Corpuscular Hemoglobin 28.7 PG (26-34); Mean Corpuscular Volume 88.2 fL (80-100); Monocytes Absolute Auto 400 /uL (0-900); Monocytes Percent Auto 5.5 % (3-14); Neutrophils Absolute Auto 6000 /uL (1500-7000); Platelet Count 177 X10^3/uL (150-400); Red Blood Cell Count 4.07 X10^6/uL (4.5-5.9); Red Cell Distribution Width 14.7 % (11.6-14.8)
[2018-09-12 05:12] LABS: BUN Creatinine Ratio 12.1 (6-22); Blood Urea Nitrogen 17 mg/dL (9-20); Calcium 7.6 mg/dL (8.4-10.2); Carbon Dioxide 24 mmol/L (22-32); Chloride 106 mmol/L (98-107); Estimated Glomerular Filt Rate 50.4 mL/min (>60); Glucose 112 mg/dL (80-110); HEMOLYSIS < 15 (0-50); Magnesium 1.8 mg/dL (1.6-2.3); Potassium 4.5 mmol/L (3.4-5.1); Sodium 138 mmol/L (137-145)
[2018-09-12] MEDS: LEVOTHYROXINE 75 MCG TABLET PO (05:20)
[2018-09-12] MEDS: predniSONE 20 MG TABLET 50 MG PO (08:39)
[2018-09-12] MEDS: MAGNESIUM OXIDE 400 MG TABLET 200 MG PO (08:41)
[2018-09-12] MEDS: MESALAMINE 2.4 GM 2.4 EACH PO (08:41)
[2018-09-12] MEDS: LOPERAMIDE 2 MG CAPSULE 4 MG PO (08:42)
[2018-09-12] MEDS: LACTOBACILLUS ACIDOPHILUS TABLET 2 EACH PO (08:42)
[2018-09-12] MEDS: NYSTATIN/TRIAMCIN CREAM 15 GM 1 APPLIC TOP ×2 (08:43→20:59)
[2018-09-12] MEDS: OSELTAMIVIR 75 MG CAPSULE PO ×2 (08:43→20:59)
--- NOTE | 2018-09-12 09:36 | P.PN_ITS ---
Subjective Date Patient Seen: 09/12/18 Time Patient Seen: 09:34 Interval history: Patient is sitting up in bed. Clearly feels a lot better. Now beginning to cough and is annoyed by that. Bowel seem to have improved. Not having the free-flowing liquidy diarrhea he was having before. Patient producing large amounts of urine at this point now. It has become clear urine. Exam Vital Signs (past 8 hours): - 09/12/18 05:15 Pulse Rate 68 Respiratory Rate 21 Blood Pressure 130/81 Pulse Oximetry 98 Oxygen Delivery Method Nasal Cannula Oxygen Flow Rate 2 Objective Labs Result Diagrams: 09/12/18 04:28 09/12/18 04:28 Labs: Laboratory Results - last 24 hr 09/11/18 09/11/18 09/11/18 12:00 12:02 12:20 WBC RBC Hgb Hct MCV MCH MCHC RDW Plt Count Neut % (Auto) Lymph % (Auto) [place] % (Auto) Eos % (Auto) Baso % (Auto) Neut # (Auto) Lymph # (Auto) [place] # (Auto) Eos # (Auto) Baso # (Auto) Sodium Potassium Chloride Carbon Dioxide BUN Creatinine Estimated GFR BUN/Creatinine Ratio Glucose Calcium Magnesium Urine Color Yellow Urine Appearance Clear Urine pH 5.0 Ur Specific [place] 1.025 Urine Protein 1+ H Urine Glucose (UA) Negative Urine Ketones Negative Urine Occult Blood 1+ H Urine Nitrate Negative Urine Bilirubin Negative Urine Urobilinogen 0.2 Ur Leukocyte Esterase Negative Urine RBC 1-5/hpf Urine WBC None seen Urine Bacteria None seen Hyaline Casts 1-5/lpf Granular Casts 1-5/lpf Ur Culture Indicated? Cult not indicated Nasal Screen MRSA (PCR) Negative for mrsa Chlamy pneumoniae PCR Not detected Adenovirus (PCR) Not detected B.parapertussis DNA PCR Not detected Coronavirus OC43 (PCR) Not detected Coronavirus HKU1 (PCR) Not detected Coronavirus 229E (PCR) Not detected Coronavirus NL63 (PCR) Not detected Human Metapneumovir PCR Not detected Influenza Type A (PCR) Detected H Influenza Type B (PCR) Not detected M. pneumoniae (PCR) Not detected Parainfluenza 1 (PCR) Not detected Parainfluenza 2 (PCR) Not detected Parainfluenza 3 (PCR) Not detected Parainfluenza 4 (PCR) Not detected RSV (PCR) Not detected Entero/Rhino (PCR) Not detected 09/11/18 09/12/18 09/12/18 12:25 04:28 04:28 WBC 7.0 RBC 4.07 L Hgb 11.7 L Hct 35.9 L MCV 88.2 MCH 28.7 MCHC 32.5 RDW 14.7 Plt Count 177 Neut % (Auto) 85.0 H Lymph % (Auto) 9.4 L [place] % (Auto) 5.5 Eos % (Auto) 0.0 L Baso % (Auto) 0.1 Neut # (Auto) 6000 Lymph # (Auto) 700 L [place] # (Auto) 400 Eos # (Auto) 0 Baso # (Auto) 0 Sodium 132 L 138 Potassium 3.2 L 4.5 D Chloride 100 106 Carbon Dioxide 23 24 BUN 19 17 Creatinine 1.50 H 1.40 H Estimated GFR 46.5 L 50.4 L BUN/Creatinine Ratio 12.7 12.1 Glucose 324 H D 112 H D Calcium 7.0 L 7.6 L Magnesium 1.8 Urine Color Urine Appearance Urine pH Ur Specific [place] Urine Protein Urine Glucose (UA) Urine Ketones Urine Occult Blood Urine Nitrate Urine Bilirubin Urine Urobilinogen Ur Leukocyte Esterase Urine RBC Urine WBC Urine Bacteria Hyaline Casts Granular Casts Ur Culture Indicated? Nasal Screen MRSA (PCR) Chlamy pneumoniae PCR Adenovirus (PCR) B.parapertussis DNA PCR Coronavirus OC43 (PCR) Coronavirus HKU1 (PCR) Coronavirus 229E (PCR) Coronavirus NL63 (PCR) Human Metapneumovir PCR Influenza Type A (PCR) Influenza Type B (PCR) M. pneumoniae (PCR) Parainfluenza 1 (PCR) Parainfluenza 2 (PCR) Parainfluenza 3 (PCR) Parainfluenza 4 (PCR) RSV (PCR) Entero/Rhino (PCR) Assessment & Plan Assessment & Plan narrative: 1. Influenza a with pneumonia-continue with Tamiflu. Patient will continue on this for now. Fortunately it seems to be minimally ill with this 2. Diarrhea-question secondary to influenza versus other. Continue with oral steroids and supportive care. No evidence of infectious etiology by a GI panel so no C diff etc. Diarrhea was not bloody so doubt ischemic colitis or that it is related to his ulcerative colitis but cannot be sure about either of those. 3. Sepsis-patient's blood pressure is much improved after fluid resuscitation. I will decrease IV fluids and consider removal of Patten catheter either later today or tomorrow. 4. Acute kidney injury-patient back to baseline. Recall patient has single kidney after nephrectomy for renal cell carcinoma. Continue with IV fluids as above for now anyway. 5. Adrenal insufficiency-continue with increased dose oral prednisone which will serve as stress dose steroids for his infection in the setting of chronic steroid therapy as well as potentially treat inflammatory bowel disease if that is the source of his diarrhea Note: Greater than 30 minutes was spent evaluating the patient on the floor, including examining the patient, discussing clinical course with clinical and nursing staff, reviewing clinical course in the computer, preparing documentation and writing orders for continued management of care, discussing status with family as appropriate, reviewing plans for the next 24 hours with both patient/family and nursing staff as appropriate.
[2018-09-12] MEDS: DEXTROSE 5%-0.45NS W/KCL 20MEQ 1,000 ML 100 MEQ IV ×2 (11:20→21:49)
--- NOTE | 2018-09-12 11:28 | CM.DANOTE ---
DCP/Assessment: Reviewed chart. Patient is a 68yr old male admitted to [facility] for syncopal episode. PCP is Dr. Collins. Primary payor is 1)Medicare. Met with patient explained CM/SW role. Patient reports that he currently resides with his spouse in [place]. Patient denies using any DME and reports that he is I with all ADL's. Patient currently with influenza. D/C date unknown at this time. Notified patient that CM team would continue to follow for any d/c planning needs that may arise. Spoke with RN about possible therapy evaluation prior to d/c. She reports that she will notify CM department and/or MD if she feels necessary. Otherwise plan for home without d/c planning needs when medically stable. P: Home NONI [place] Discharge Planning/Care Management Advanced directive, confirm from FAMILY Start: 09/10/18 19:35 Freq: Q24H Status: Complete Protocol: Document 09/10/18 19:35 EM (Rec: 09/10/18 19:36 EM [id number]) Advance Directive, confirm on record Time 19:30 Person contacted [place] Copy received No CM Discharge Assessment Start: 09/12/18 11:26 Freq: Status: Active Protocol: Document 09/12/18 11:26 KJS (Rec: 09/12/18 11:28 [id number]) Discharge Planning Assessment Assigned Platform Builder [facility] [place] Contact Information Shelli Rameshjorge (spouse) cell# [phone] Advance Directives? Yes: at home per /will bring in later History Provided By Patient Medical Record Prior Living Arrangements House Household Members significant other Type of transporation used prior to Drives own vehicle admit Independent with ADL's Yes Is patient alert and oriented? Yes Caregiver for Another No Barriers to Discharge No Discharge Plan Home Transportation Arrangement Family to provide transport when medically stable. Referrals Initiated None needed Whiteboard Updated in Patient Room with Yes name and ext. # of Platform Builder Review Status In Process Please Provide Date Initial DC 09/12/18 Assessment Was Performed Next Review Type Continued Stay Review
[2018-09-12] MEDS: INSULIN ASPART 100 UNIT/ML INSULN PEN SUBCUT (17:10)
[2018-09-12] MEDS: ENOXAPARIN 40 MG/0.4 ML SYRINGE SUBCUT (20:59)
[2018-09-13] VITALS (7 sets, daily range): BP systolic 114–151; BP diastolic 71–95; PULSE 60–88; RESP 14–21; TEMP 36.2–36.4; O2SAT 94–98
[2018-09-13 05:16] LABS: BUN Creatinine Ratio 15.5 (6-22); Blood Urea Nitrogen 17 mg/dL (9-20); Calcium 8.4 mg/dL (8.4-10.2); Carbon Dioxide 25 mmol/L (22-32); Chloride 107 mmol/L (98-107); Estimated Glomerular Filt Rate > 60.0 mL/min (>60); Glucose 133 mg/dL (80-110); HEMOLYSIS < 15 (0-50); Potassium 4.5 mmol/L (3.4-5.1); Sodium 139 mmol/L (137-145)
[2018-09-13] MEDS: ALBUTEROL 2.5 MG/3 ML NEB (ADULT) INH ×2 (05:55→14:28)
[2018-09-13] MEDS: LEVOTHYROXINE 75 MCG TABLET PO (05:55)
--- NOTE | 2018-09-13 06:17 | PC.NURSE ---
Pt. had one loose bm this am with tint of blood, pt. otherwise denies pain or abdominal discomfort. Pt. is on Solumedrol and Tamiflu. VSS except HR is yared in the 40's when asleep. lung sounds with ins/exp wheezes, denies shortness of air and sats in the mid 90's on RA.
[2018-09-13] MEDS: LACTOBACILLUS ACIDOPHILUS TABLET 2 EACH PO (07:52)
[2018-09-13] MEDS: MAGNESIUM OXIDE 400 MG TABLET 200 MG PO (07:53)
[2018-09-13] MEDS: OSELTAMIVIR 75 MG CAPSULE PO ×2 (07:56→20:50)
[2018-09-13] MEDS: INSULIN ASPART 100 UNIT/ML INSULN PEN SUBCUT ×3 (08:00→17:23)
[2018-09-13] MEDS: NYSTATIN/TRIAMCIN CREAM 15 GM 1 APPLIC TOP (08:01)
[2018-09-13] MEDS: MESALAMINE 1.2 GM 1.2 EACH PO ×2 (08:37→16:28)
--- NOTE | 2018-09-13 09:00 | PM.PN.1 ---
Subjective Date Patient Seen: 09/13/18 Time Patient Seen: 09:00 Interval history: Patient is sitting up in bed eating breakfast. Really has no complaints at all. Looks tremendously better. Has had some bloody diarrhea in the toilet on couple of occasions (he flushes before calling nursing staff so not exactly clear what is going on) Exam Vital Signs (past 8 hours): - 09/13/18 03:22 09/13/18 05:55 09/13/18 07:56 Temperature 97.4 F L 97.1 F L Pulse Rate 82 60 69 Respiratory Rate 21 18 17 Blood Pressure 151/95 H 136/71 Pulse Oximetry 96 94 98 Oxygen Delivery Method Room Air Oxygen Flow Rate 1 Objective Labs Result Diagrams: 09/12/18 04:28 09/13/18 04:21 Labs: Laboratory Results - last 24 hr 09/13/18 04:21 Sodium 139 Potassium 4.5 Chloride 107 Carbon Dioxide 25 BUN 17 Creatinine 1.10 Estimated GFR > 60.0 BUN/Creatinine Ratio 15.5 Glucose 133 H Calcium 8.4 Assessment & Plan Assessment & Plan narrative: 1. Influenza a-continue Tamiflu. Minimally symptomatic fortunately 2. Diarrhea-seems more clear there is more inflammatory bowel issue going on here. That is why I switched him to IV steroids yesterday. Continue that for now. 3. Sepsis-seems to have resolved. Will DC IV fluids and DC Patten. 4. Acute kidney injury-back to baseline. 5. Adrenal insufficiency and hyperglycemia-continue to monitor use insulin as necessary continue on IV steroids for now Note: Greater than 30 minutes was spent evaluating the patient on the floor, including examining the patient, discussing clinical course with clinical and nursing staff, reviewing clinical course in the computer, preparing documentation and writing orders for continued management of care, discussing status with family as appropriate, reviewing plans for the next 24 hours with both patient/family and nursing staff as appropriate.
--- NOTE | 2018-09-13 13:43 | PC.NURSE ---
Addendum entered by Irene Butler R.N. 09/13/18 15:07: New PIV site to L hand. IV Solumedrol given. Per Pt request, 1500 Mesalamine to be given with dinner. Notified oncoming RN. Ameya high in reach. Pt continues with loose, cb blood to stools. Decreased in blood since start of shift. Remains urgent with stools. in, updated on POC. Pt feels he may be ready to d/c home tomorrow. Original Note: Am shift Pt is a/o x4, ambulating to BR indep, reminded Pt to let staff know prior to flushing stools, as Pt is reporting cb blood, and Hx of colitis. No nausea. Tolerating current POC. Denies pain, pt has Tele d/c'd and IVF SL this shift. Improving.
--- NOTE | 2018-09-13 18:30 | PC.NURSE ---
Addendum entered by Sofya Bergman R.N. 09/13/18 21:39: Pt had uneventful evening. Watching TV. Denies any c/o. HL intact/patent. CBG = 131, no coverage required. Independent in room, Possible D/C in am. Call light w/in reach. Continue w/plan of care. Original Note: Pt arrived to at 1520 from ICU. Alert/oriented. Lungs clear, decreased at bases, SpO2 95% RA. HL left hand intact/patent. CBG = 138, Denies discomfort, Call light w/in reach, pt/ independent in room.
[2018-09-13] MEDS: ENOXAPARIN 40 MG/0.4 ML SYRINGE SUBCUT (20:49)
[2018-09-14 00:27] VITALS: BP 161/89; PULSE 63; RESP 17; TEMP 36.4; O2SAT 98
--- NOTE | 2018-09-14 02:07 | PC.NURSE ---
Dr. Pond was called. Answering service was notified that the pt. 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 One bloody stool occurred during evening shift. Dr. Pond called back and was informed of the bloody stools, vitals, hemoglobin and hematocrit. Dr. Pond ordered an AM CMP and H/H.
[2018-09-14 03:45] VITALS: BP 151/84; PULSE 62; RESP 16; TEMP 36.4; O2SAT 95
[2018-09-14 04:16] LABS: Hematocrit 34.4 % (41-53); Hemoglobin 11.4 g/dL (13.5-17.5)
[2018-09-14 04:25] LABS: Alanine Aminotransferase 35 IU/L (21-72); Albumin 3.4 g/dL (3.5-5.0); Albumin Globulin Ratio 1.1 (1.0-2.8); Alkaline Phosphatase 55 U/L (38-126); Aspartate Aminotransferase 22 IU/L (17-59); BUN Creatinine Ratio 17.3 (6-22); Bilirubin Total 0.1 mg/dL (0.2-1.3); Blood Urea Nitrogen 19 mg/dL (9-20); Calcium 8.8 mg/dL (8.4-10.2); Carbon Dioxide 29 mmol/L (22-32); Chloride 105 mmol/L (98-107); Estimated Glomerular Filt Rate > 60.0 mL/min (>60); Glucose 110 mg/dL (80-110); HEMOLYSIS < 15 (0-50); Potassium 4.5 mmol/L (3.4-5.1); Sodium 139 mmol/L (137-145); Total Protein 6.4 g/dL (6.3-8.2)
[2018-09-14] MEDS: LEVOTHYROXINE 75 MCG TABLET PO (05:36)
[2018-09-14 07:30] VITALS: BP 142/80; PULSE 67; RESP 16; TEMP 36.1; O2SAT 95
[2018-09-14] MEDS: LACTOBACILLUS ACIDOPHILUS TABLET 2 EACH PO (08:17)
[2018-09-14] MEDS: MESALAMINE 1.2 GM 1.2 EACH PO ×2 (08:17→15:45)
[2018-09-14] MEDS: MAGNESIUM OXIDE 400 MG TABLET 200 MG PO (08:18)
[2018-09-14] MEDS: OSELTAMIVIR 75 MG CAPSULE PO (08:21)
--- NOTE | 2018-09-14 08:35 | PM.PN.1 ---
Subjective Date Patient Seen: 09/14/18 Time Patient Seen: 08:17 Interval history: Patient is sitting up at the side of the bed this morning. Cough has improved. Continues with bloody diarrhea about every 3 hours. No urgency. No incontinence. No abdominal pain. He tells me that he had a colonoscopy on September 04. This was done at [facility] by Dr. Kemp. Historically he has had problems after each of his colonoscopies. In the past these have been c. diff infections. He would very much like to go home and go back to his home medication regimen and timing. Exam Vital Signs (past 8 hours): - 09/14/18 03:45 Temperature 97.5 F L Pulse Rate 62 Respiratory Rate 16 Blood Pressure 151/84 H Pulse Oximetry 95 Oxygen Delivery Method Room Air Oxygen Flow Rate 0 Objective Labs Result Diagrams: 09/14/18 04:04 09/14/18 04:04 Labs: Laboratory Results - last 24 hr 09/14/18 09/14/18 04:04 04:04 Hgb 11.4 L Hct 34.4 L Sodium 139 Potassium 4.5 Chloride 105 Carbon Dioxide 29 BUN 19 Creatinine 1.10 Estimated GFR > 60.0 BUN/Creatinine Ratio 17.3 Glucose 110 Calcium 8.8 Total Bilirubin 0.1 L AST 22 ALT 35 Alkaline Phosphatase 55 Total Protein 6.4 Albumin 3.4 L Globulin 3.0 Albumin/Globulin Ratio 1.1
--- NOTE | 2018-09-14 08:41 | P.PN_ITS ---
Subjective Date Patient Seen: 09/14/18 Time Patient Seen: 08:17 Interval history: Patient is sitting up at the side of the bed this morning. Cough has improved. Continues with bloody diarrhea about every 3 hours. No urgency. No incontinence. No abdominal pain. He tells me that he had a colo noscopy on September 04. This was done at [facility] by Dr. Kemp. Historically he has had problems after each of his colonoscopies. In the past these have been c. diff infections. He would very much like to go home and go back to his home medication regimen and timing. Exam Vital Signs (past 8 hours): - 09/14/18 03:45 Temperature 97.5 F L Pulse Rate 62 Respiratory Rate 16 Blood Pressure 151/84 H Pulse Oximetry 95 Oxygen Delivery Method Room Air Oxygen Flow Rate 0 Objective Labs Result Diagrams: 09/14/18 04:04 09/14/18 04:04 Labs: Laboratory Results - last 24 hr 09/14/18 09/14/18 04:04 04:04 Hgb 11.4 L Hct 34.4 L Sodium 139 Potassium 4.5 Chloride 105 Carbon Dioxide 29 BUN 19 Creatinine 1.10 Estimated GFR > 60.0 BUN/Creatinine Ratio 17.3 Glucose 110 Calcium 8.8 Total Bilirubin 0.1 L AST 22 ALT 35 Alkaline Phosphatase 55 Total Protein 6.4 Albumin 3.4 L Globulin 3.0 Albumin/Globulin Ratio 1.1
[2018-09-14] MEDS: ALBUTEROL 2.5 MG/3 ML NEB (ADULT) INH (09:34)
[2018-09-14 09:35] VITALS: PULSE 86; RESP 18; O2SAT 96
[2018-09-14 12:00] VITALS: BP 146/76; PULSE 76; RESP 16; TEMP 36.4; O2SAT 95
[2018-09-14] MEDS: INSULIN ASPART 100 UNIT/ML INSULN PEN SUBCUT (12:42)
[2018-09-14 16:03] VITALS: BP 156/76; PULSE 66; RESP 20; TEMP 36.6; O2SAT 95
--- NOTE | 2018-09-14 17:06 | PM.DS.1 ---
History of Present Illness Chief complaint: Near Syncope Narrative: Patient is a 68 yo male with ulcerative colitis, single kidney, adrenal insufficiency here today after syncopal episode after frequent eqpisodes of watery diarrhea. Patient tells me that he started feeling poorly about 5-6 days ago but nothing specific until yesterday when he had repeated episodes of diarrhea and became increasingly weak and unable to get up. He also says that he has had a productive cough of yellow sputum since yesterday as well. He is feeling a little better this morning after 3 L of fluid. He tells me that he still is weak. Still has significant diarrhea with urgency. Discharge Providers Date of admission: 09/10/18 19:02 Discharge Date: 09/14/18 Primary care physician: Monica Collins DO Consults: 09/11/18 07:41 Consult to Respiratory Therapy Evaluate & Treat Comment: Physician Instructions: Evaluate and treat Discharge provider: Monica Collins DO Summary Discharge Diagnosis: Influenza A pneumonia Ulcerative colitis flare Sepsis as manifested by acute kidney injury and hypotension Acute on chronic adrenal insufficiency Hyperglycemia secondary to increased steroids Hypokalemia secondary to fluid resuscitation with normal saline Anemia Obesity Hospital Course: Patient with history of ulcerative colitis and colonoscopy 1 week prior, nephrectomy, adrenal insufficiency, c. diff infection presented after episode of syncope from hypotension responsive to fluids, diarrhea, productive cough. Hypotension and oliguria from dehydration secondary to significant GI losses. He initially improved with a liter of fluid in the ED but then continued to have hypotension subsequently requiring 5 liters of saline in boluses. Diarrhea. GI panel totally negative. C. diff negative times two. guaiac initially negative. Improved with loperamide. Subsequently became bloody and frequent. Improved in frequency with increase in mesalamine and prednisone. Discussed with GI cable television program director for home dosing. Influenza pneumonia. Pneumonia on chest xray. Initially given a dose of ampicillin/azithromycin until viral panel showed influenza infection. stopped antibiotics and started tamiflu. prednisone given. Acute renal failure on chronic kidney disease stage 3. Improved after hydration. Hypokalemia. Single K-carlos given. Ulcerative colitis. Home regimen was started initially and then increased with flare. Adrenal insufficiency. Currently with increased prednisone for UC flare. Will likely need lengthy taper after discharge. Anemia of chronic disease and acute blood loss. Was stable at discharge. Will closely monitor as outpatient. Has been on iron supplementation. Obesity. Had been working on weight loss. Will continue to discuss as outpatient. Code status: full code DVT prophylaxis: lovenox Disposition: home with spouse. Status at Discharge Cognitive/behavioral status at discharge: oriented Functional status at discharge: independent ambulation Overall status at discharge: patient is back to baseline Time Spent with Patient Greater than 30 minutes Exam Vital Signs (past 8 hours): - 09/14/18 09:35 09/14/18 12:00 09/14/18 16:03 Temperature 97.6 F 97.8 F Pulse Rate 86 76 66 Respiratory Rate 18 16 20 Blood Pressure 146/76 H 156/76 H Pulse Oximetry 96 95 95 Oxygen Delivery Method Room Air Oxygen Flow Rate 0 Narrative Exam Narrative: General: Well-developed, well-nourished, no acute distress. Heart: Regular rate and rhythm Lungs: Clear to auscultation, no particular wheezes Abd: BS+, soft, nontender, nondistended, no rebound, no guarding Extremities: Warm and well perfused, no edema Objective Labs Result Diagrams: 09/14/18 04:04 09/14/18 04:04 Labs: Laboratory Results - last 24 hr 09/14/18 09/14/18 04:04 04:04 Hgb 11.4 L Hct 34.4 L Sodium 139 Potassium 4.5 Chloride 105 Carbon Dioxide 29 BUN 19 Creatinine 1.10 Estimated GFR > 60.0 BUN/Creatinine Ratio 17.3 Glucose 110 Calcium 8.8 Total Bilirubin 0.1 L AST 22 ALT 35 Alkaline Phosphatase 55 Total Protein 6.4 Albumin 3.4 L Globulin 3.0 Albumin/Globulin Ratio 1.1 Discharge Plan Discharge Plan Patient Disposition: Home Discharge Med Rec/Prescriptions Prescriptions: New oseltamivir [Tamiflu] 75 mg Capsule 75 mg PO BID Qty: 2 RF: 0 prednisone 20 mg tablet 60 mg PO DAILY Qty: 42 RF: 0 Continued cyanocobalamin (vitamin B-12) [Vitamin B-12] 500 MCG tablet 1,000 mcg PO DAILY Qty: 0 RF: 0 multivitamin capsule 1 cap PO DAILY RF: 0 cholecalciferol (vitamin D3) 2,000 unit capsule 2,000 unit PO DAILY RF: 0 fluconazole [Diflucan] 200 mg tablet 200 mg PO .weekly Qty: 4 RF: 0 nystatin-triamcinolone 100,000-0.1 unit/g-% cream 1 applictn TOP BID Qty: 60 RF: 0 levothyroxine 75 mcg tablet 75 mcg PO DAILY RF: 0 Probiotic 20 billion cell Capsule 2 cap PO DAILY RF: 0 famciclovir 250 mg tablet 250 mg PO BID PRN (Reason: herpes zoster) RF: 0 fluticasone propionate 50 mcg/actuation spray,suspension 1 spray Intranasal BID PRN (Reason: Congestion) RF: 0 ascorbic acid (vitamin C) 500 mg Tablet,Chewable 500 mg PO DAILY RF: 0 magnesium 200 mg Tablet 200 mg PO DAILY RF: 0 turmeric 300 mg 600 mg PO DAILY RF: 0 melatonin 3 mg Tablet 3 mg PO BEDTIME PRN (Reason: Sleep) RF: 0 Iron Complex 27 mg 1 tab PO DAILY RF: 0 ondansetron 4 mg tablet,disintegrating 4 mg PO Q6-8H PRN (Reason: nausea and vomiting) Qty: 10 RF: 0 Changed mesalamine [Lialda] 1.2 gram Tablet,Delayed Release (Dr/Ec) 4.8 g PO DAILY Qty: 0 RF: 0 Discontinued prednisone 2.5 mg tablet 2.5 mg PO BID RF: 0 Follow up/Referrals: Aleksandar Ybarra MD [Non-Staff] - 2 Weeks (Dr. Ybarra is not patient's provider. He will need an appointment with the doctor who did his colonoscopy in 2 weeks. ) Monica Collins DO [Primary Care Provider] - 09/18/18 11:00 am (Has been scheduled.) Provider Discharge Instructions Diet: Diet as Tolerated Diet comment: low residue Activity: as tolerated Skin/Wound/Dressing Care Report to your healthcare provider any signs of infection, such as:: chills, fever, night sweats and increased pain Discharge Data Primary Care Provider: Monica Collins Attending Provider: Monica Collins Admit Date/Time: 09/10/18 19:02 Discharges patient from system. Discharge Date/Time: 09/14/18 18:45
[2018-09-16 15:55] LABS: Magnesium, RBC 4.2 mg/dL (4.0-6.4)
== END 2018-09-14 18:45 | disposition home or self-care (01) | DRG 871 ==
LOC: ED 18:37 → AC 09-11 09:07 → ICU 09-11 16:42 → AC 09-14 17:07 → ICU 11-03 08:35
PROVIDERS: Internal Medicine; Admitting Provider Family Medicine; Emergency Provider Emergency Medicine; PCP Family Medicine; Visit Provider Family Medicine
DX: A41.89 Other specified sepsis (principal); J10.00 Influenza due to other identified influenza virus with unspecified type of pneumonia; N17.9 Acute kidney failure, unspecified; K51.90 Ulcerative colitis, unspecified, without complications; E27.40 Unspecified adrenocortical insufficiency; I95.9 Hypotension, unspecified; E86.0 Dehydration; E87.6 Hypokalemia; N18.3 Chronic kidney disease, stage 3 (moderate); R65.20 Severe sepsis without septic shock; Z87.891 Personal history of nicotine dependence; Z90.5 Acquired absence of kidney
CPT/HCPCS: 36415; 36591; 71045; 80048; 80053; 81001; 82550; 82962; 83605; 83735; 83880; 84145; 84443; 84484; 85014; 85018; 85025; 87070; 87205; 87493; 87507; 87633; 87797; 93005; 94640; 94760; 94762; 96360; 99223; 99233; 99239; 99283; 99285; J0290; J1650; J2920; J3480; J7613

== ENCOUNTER → 2018-09-18 11:34 | Outpatient (CLI) | payer MEDICARE, SELFPAY ==
[2018-09-10 19:28] VITALS: BMI 35.9
[2018-09-18 12:09] LABS: Hematocrit 37.8 % (41-53); Mean Corpuscular HGB Conc 34.5 % (30-36); Mean Corpuscular Hemoglobin 29.6 PG (26-34); Mean Corpuscular Volume 85.9 fL (80-100); Platelet Count 343 X10^3/uL (150-400); Red Cell Distribution Width 14.4 % (11.6-14.8); White Blood Cell Count 11.7 X10^3/uL (4.5-11.0)
[2018-09-18 12:12] LABS: Add Manual Diff / Slide Review YES
[2018-09-18 12:29] LABS: Alanine Aminotransferase 40 IU/L (21-72); Albumin 3.8 g/dL (3.5-5.0); Albumin Globulin Ratio 1.3 (1.0-2.8); Alkaline Phosphatase 70 U/L (38-126); Aspartate Aminotransferase 20 IU/L (17-59); BUN Creatinine Ratio 25.4 (6-22); Bilirubin Total 0.3 mg/dL (0.2-1.3); Blood Urea Nitrogen 33 mg/dL (9-20); Calcium 10.2 mg/dL (8.4-10.2); Carbon Dioxide 32 mmol/L (22-32); Chloride 98 mmol/L (98-107); Cholesterol 171 mg/dL (140-199); Erythrocyte Sedimentation Rate 5 MM/HR (0-15); Estimated Glomerular Filt Rate 54.9 mL/min (>60); Globulin 2.9 g/dL (1.7-4.1); Glucose 104 mg/dL (80-110); HDL Cholesterol 65 mg/dL (40-60); HEMOLYSIS < 15 (0-50); LDL Cholesterol Calculated 67 mg/dL (<100); Potassium 5.1 mmol/L (3.4-5.1); Sodium 138 mmol/L (137-145); Total Protein 6.7 g/dL (6.3-8.2); Triglycerides 195 mg/dL (35-150)
[2018-09-18 12:36] LABS: Neutrophils Absolute Manual 9360 /uL (3000-5900); Total Cells Counted 100
[2018-09-18 12:37] LABS: RBC Morphology Normal Morphology
[2018-09-18 12:42] LABS: C-Reactive Protein Quant < 0.5 mg/dL (<1.0)
== END ==
PROVIDERS: Family Provider Nurse Practitioner; PCP Family Medicine; Visit Provider Family Medicine
DX: D64.9 Anemia, unspecified (principal); K51.90 Ulcerative colitis, unspecified, without complications; N18.2 Chronic kidney disease, stage 2 (mild); E66.9 Obesity, unspecified; E27.40 Unspecified adrenocortical insufficiency
CPT/HCPCS: 36415; 80053; 80061; 85025; 85651; 86140

== ENCOUNTER → 2018-09-23 12:24 | Outpatient (CLI) | payer MEDICARE, SELFPAY ==
[2018-09-10 19:28] VITALS: BMI 35.9
[2018-09-23 14:08] LABS: Free T4, Direct Thyroxine 0.75 ng/dL (0.78-2.19)
== END ==
PROVIDERS: Family Provider Nurse Practitioner; PCP Family Medicine; Visit Provider Nurse Practitioner
DX: E03.9 Hypothyroidism, unspecified (principal)
CPT/HCPCS: 36415; 84439; 84443

== ENCOUNTER 2018-09-29 21:34 | Emergency (ER) | payer MEDICARE, SELFPAY ==
[2018-09-29 21:39] VITALS: BP 119/83; PULSE 80; RESP 15; TEMP 36.1; O2SAT 96; BMI 36.6
== END 2018-09-29 22:28 | disposition left against medical advice (07) ==
PROVIDERS: Emergency Provider Emergency Medicine; Family Provider Nurse Practitioner; PCP Family Medicine
DX: Z53.21 Procedure and treatment not carried out due to patient leaving prior to being seen by health care provider (principal)
CPT/HCPCS: 99282

== ENCOUNTER 2018-09-30 17:50 | Observation (INO) | payer MEDICARE, SELFPAY ==
[2018-09-30 17:54] VITALS: BP 142/81; PULSE 75; RESP 21; TEMP 35.9; O2SAT 97; BMI 36.6
--- NOTE | 2018-09-30 18:21 | DI.RAD.S_ITS ---
PROCEDURE: XR ACUTE ABDOMEN SERIES INDICATIONS: diarrhea pain TECHNIQUE: One view chest and two views of the abdomen were acquired. COMPARISON: [facility], , ABDOMEN ACUTE SERIES, 10/09/2015, 21:38. FINDINGS: Surgical changes and devices: None. Chest: Lungs are clear. Chronic elevation of left hemidiaphragm and left basilar linear scarring. Heart size is normal. No pleural effusions. No pneumoperitoneum. Abdomen: No abnormally dilated loops of bowel are present. There are numerous air-fluid levels. Findings are suggestive of gastroenteritis. No bowel obstruction. No suspicious calcifications. Visualized solid organ contours appear normal. Bones: No suspicious bony lesions. IMPRESSION: Nonspecific bowel gas pattern, possibly representing gastroenteritis. Dictated by: Mat Price M.D. on 09/30/2018 at 19:17 Approved by: Mat Price M.D. on 09/30/2018 at 19:18
--- NOTE | 2018-09-30 18:26 | ED_ITS ---
HPI - Nausea/Vomiting/Diarrhea General Chief complaint: Nausea/Vomiting/Diarrhea Stated complaint: DIARRHEA Time Seen by Provider: 09/30/18 18:05 Source: patient and family Mode of arrival: ambulatory Limitations: no limitations History of Present Illness HPI Narrative: Patient is a 68-year-old male who presents with multiple episodes of watery brown diarrhea. He says it started yesterday when he has had at least 5 or 6 times today. He says every time he eats or drinks anything he feels like it goes right through him. He has some lower abdominal cramping and pain no vomiting or fever. He was discharged 09/17/2018 after being diagnosed diarrhea and influenza. He says he was put on antibiotics although according to the chart and see that he has antibiotics. MD complaint: diarrhea Onset (ago): day(s) (2) Description of Diarrhea: watery Related Data Home Medications Medication Instructions Recorded Confirmed cyanocobalamin (vitamin B-12) 1,000 mcg PO DAILY #0 tab 03/04/16 09/10/18 [Vitamin B-12] cholecalciferol (vitamin D3) 2,000 2,000 unit PO DAILY 04/23/18 09/10/18 unit capsule multivitamin capsule 1 cap PO DAILY 04/23/18 09/10/18 Probiotic 2 cap PO DAILY 07/23/18 09/10/18 ascorbic acid (vitamin C) 500 mg PO DAILY 07/23/18 09/10/18 fluticasone propionate 1 spray INTRANASAL BID PRN 07/23/18 09/10/18 levothyroxine 75 mcg PO DAILY 07/23/18 09/10/18 magnesium 200 mg PO DAILY 07/23/18 09/10/18 turmeric 600 mg PO DAILY 07/23/18 09/10/18 Iron Complex 1 tab PO DAILY 09/10/18 09/10/18 melatonin 3 mg PO BEDTIME PRN 09/10/18 09/10/18 mesalamine [Lialda] 1.2 g PO BID 09/30/18 mesalamine [Lialda] 1.2 g PO BID 09/30/18 09/30/18 Previous Rx's Medication Instructions Recorded ondansetron 4 mg PO Q6-8H PRN #10 tab 07/12/18 fluconazole 200 mg tablet 200 mg PO .weekly #4 tab 08/21/18 nystatin-triamcinolone 100,000 1 applictn TOP BID #60 gram 08/21/18 unit/g-0.1 % topical cream prednisone 60 mg PO DAILY #42 tab 09/14/18 famciclovir 250 mg tablet 250 mg PO BID PRN #30 tab 09/22/18 Allergies Allergy/AdvReac Type Severity Reaction Status Date / Time cefazolin [CEFAZOLIN] Allergy Severe rash Verified 09/29/18 21:50 levofloxacin [From LEVAQUIN] Allergy Mild Verified 09/29/18 21:50 morphine [MORPHINE] Allergy Mild STOPPED Verified 09/29/18 21:50 BREATHING. Review of Systems Review of Systems ROS Unobtainable: All systems reviewed & are unremarkable except as noted in HPI and below Constitutional Denies chills, Denies fever(s), Denies lethargy and Denies weakness Eyes Denies blurry vision and Denies diplopia Cardiovascular Denies chest pain, Denies irregular heart rhythm, Denies lightheadedness, Denies palpitations, Denies dyspnea, Denies dyspnea on exertion and Denies orthopnea Respiratory Denies cough, Denies dyspnea, Denies dyspnea on exertion and Denies wheezing Gastrointestinal Gastrointestinal: Reports as per HPI, Reports abdominal pain, Reports diarrhea, Reports loose stools, Denies nausea and Denies vomiting Genitourinary Denies hematuria, Denies flank pain, Denies urinary incontinence and Denies urinary urgency Musculoskeletal Denies back pain, Denies muscle weakness, Denies numbness and Denies tingling Integumentary/Breasts Denies pruritus, Denies erythema, Denies rash and Denies wounds Neurologic Denies numbness, Denies tingling and Denies weakness Endocrine Denies palpitations Allergic/Immunologic Denies wheezing [facility] Medical History Chronic adrenal insufficiency (Chronic 08/07/16) Onychomycosis (Chronic) Candidal intertrigo (Chronic) Acquired hypothyroidism (Chronic) Ulcerative colitis (Chronic) Anemia (Chronic 10/13/13) Intractable diarrhea (Chronic) 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 difficile colitis (Chronic ~06/2013) CMV (cytomegalovirus) status positive (Chronic) Pseudopolyp of ascending colon (Chronic) Squamous cell cancer of tongue (Chronic) Ulcerative colitis (Chronic) Renal cell carcinoma of left kidney (Resolved 09/27/15) Small bowel obstruction (Resolved) Surgical History Fractures (Resolved) History of neck surgery (Resolved ~2006) History of nephrectomy (~08/2015) History of third molar tooth extraction History of tonsillectomy (~1955) History of tonsillectomy (~1956) History of tonsillectomy (~1959) Status post colonoscopy Social History household members: significant other Smoking Status: Former smoker Social History household members: significant other Smoking Status: Former smoker Exam Initial Vital Signs Initial Vital Signs: Vital Signs Temperature 96.7 F L 09/30/18 17:54 Pulse Rate 75 09/30/18 17:54 Respiratory Rate 21 09/30/18 17:54 Blood Pressure 142/81 H 09/30/18 17:54 Pulse Oximetry 97 09/30/18 17:54 GENERAL: Alert well-appearing male no acute distress HEENT: Head atraumatic,EOMI, pupils reactive, slightly dry mucous membranes CARDIOVASCULAR: Regular rate and rhythm without murmurs, rubs or gallops. RESPIRATORY: Breath sounds equal bilaterally, no wheezes rales or rhonchi. ABDOMEN: Soft, increased bowel sounds mildly diffusely tender no guarding no rebound EXTREMITIES: Normal range of motion, no clubbing or edema. Neurovascularly intact NEUROLOGICAL: Alert and oriented x4.Normal gait and speech. Cranial nerves II through XII grossly intact. SKIN: Warm, dry, no laceration, no petechiae, no rashes or lesions. Course Orders Ordered: ED Orders 09/30/18 18:21 XR acute abdomen series Stat 09/30/18 18:30 Complete Blood Count AUTO DIFF Stat Comprehensive Metabolic Panel Stat Lipase Stat 09/30/18 19:20 Clostridium Difficile Tox PCR Stat Stool Culture Stat 09/30/18 21:59 Education, smoking cessation ONGOING 10/01/18 05:00 Basic Metabolic Panel Routine Complete Blood Count AUTO DIFF Routine Dextrose/Sodium Chloride (Dextrose 5%-0.45% Ns) 1,000 mls @ 150 mls/hr IV CONT JOY Levothyroxine Sodium (Synthroid) 75 mcg PO DAILY JOY Mesalamine (Asacol Hd) 2,400 mg PO BID JOY Methylprednisolone (Solu-Medrol 125 Mg Vial) 125 mg IV Q8H JOY Ondansetron HCl (Zofran) 4 mg IV Q8HR PRN PRN Reason: Nausea And Vomiting Discontinued Medications Sodium Chloride (Normal Saline 0.9%) 1,000 mls @ 1,000 mls/hr IV BOLUS ONE Stop: 09/30/18 19:20 Last Infusion: 09/30/18 21:50 Dose: 1,000 mls/hr Admin: 09/30/18 19:09 Dose: 1,000 mls/hr Loperamide HCl (Immodium Liquid) 4 mg PO NOW ONE Stop: 09/30/18 21:07 Last Admin: 09/30/18 21:50 Dose: Not Given Loperamide HCl (Imodium) 4 mg PO NOW ONE Stop: 09/30/18 21:31 Last Admin: 09/30/18 21:20 Dose: 4 mg Vital Signs - 8 hr 09/30/18 17:54 09/30/18 22:45 Temperature 96.7 F L 97.8 F Pulse Rate 75 73 Respiratory Rate 21 18 Blood Pressure 142/81 H 134/87 Pulse Oximetry 97 94 MDM - Nausea/Vomiting/Diarrhea Medical Records Attestation: I reviewed the patient's medical records. Lab Data Attestation: I reviewed the patient's lab results. Result diagrams: 09/30/18 18:30 09/30/18 18:30 Lab Results 09/30/18 09/30/18 09/30/18 Range/Units 18:30 18:30 18:30 WBC 8.7 (4.5-11.0) X10^3/uL RBC 4.41 L (4.5-5.9) X10^6/uL Hgb 12.8 L (13.5-17.5) g/dL Hct 39.0 L (41-53) % MCV 88.3 (80-100) fL MCH 28.9 (26-34) PG MCHC 32.8 (30-36) % RDW 15.5 H (11.6-14.8) % Plt Count 200 (150-400) X10^3/uL Neut % (Auto) 74.8 (50-75) % Lymph % (Auto) 18.9 L (25-40) % [place] % (Auto) 4.5 (3-14) % Eos % (Auto) 1.3 L (2-4) % Baso % (Auto) 0.5 (0-2) % Neut # (Auto) 6500 (8246-0398) /uL Lymph # (Auto) 1700 (8106-1813) /uL [place] # (Auto) 400 (0-900) /uL Eos # (Auto) 100 (0-450) /uL Baso # (Auto) 0 (0-100) /uL Sodium 138 (137-145) mmol/L Potassium 3.8 (3.4-5.1) mmol/L Chloride 101 (98-107) mmol/L Carbon Dioxide 30 (22-32) mmol/L BUN 20 (9-20) mg/dL Creatinine 1.40 H (0.66-1.25) mg/dL Estimated GFR 50.4 L (>60) mL/min BUN/Creatinine Ratio 14.3 (6-22) Glucose 97 (80-110) mg/dL Calcium 9.6 (8.4-10.2) mg/dL Total Bilirubin 0.4 (0.2-1.3) mg/dL AST 23 (17-59) IU/L ALT 30 (21-72) IU/L Alkaline Phosphatase 59 (38-126) U/L Total Protein 6.5 (6.3-8.2) g/dL Albumin 3.7 (3.5-5.0) g/dL Globulin 2.8 (1.7-4.1) g/dL Albumin/Globulin Ratio 1.3 (1.0-2.8) Lipase 84 (23-300) U/L C. difficile Tox (PCR) 09/30/18 Range/Units 19:20 WBC (4.5-11.0) X10^3/uL RBC (4.5-5.9) X10^6/uL Hgb (13.5-17.5) g/dL Hct (41-53) % MCV (80-100) fL MCH (26-34) PG MCHC (30-36) % RDW (11.6-14.8) % Plt Count (150-400) X10^3/uL Neut % (Auto) (50-75) % Lymph % (Auto) (25-40) % [place] % (Auto) (3-14) % Eos % (Auto) (2-4) % Baso % (Auto) (0-2) % Neut # (Auto) (1680-4829) /uL Lymph # (Auto) (6872-3239) /uL [place] # (Auto) (0-900) /uL Eos # (Auto) (0-450) /uL Baso # (Auto) (0-100) /uL Sodium (137-145) mmol/L Potassium (3.4-5.1) mmol/L Chloride (98-107) mmol/L Carbon Dioxide (22-32) mmol/L BUN (9-20) mg/dL Creatinine (0.66-1.25) mg/dL Estimated GFR (>60) mL/min BUN/Creatinine Ratio (6-22) Glucose (80-110) mg/dL Calcium (8.4-10.2) mg/dL Total Bilirubin (0.2-1.3) mg/dL AST (17-59) IU/L ALT (21-72) IU/L Alkaline Phosphatase (38-126) U/L Total Protein (6.3-8.2) g/dL Albumin (3.5-5.0) g/dL Globulin (1.7-4.1) g/dL Albumin/Globulin Ratio (1.0-2.8) Lipase (23-300) U/L C. difficile Tox (PCR) Negative for c. diff Imaging Data Abdominal x-ray: Radiologist's impression: PROCEDURE: XR ACUTE ABDOMEN SERIES INDICATIONS: diarrhea pain TECHNIQUE: One view chest and two views of the abdomen were acquired. COMPARISON: [facility], , ABDOMEN ACUTE SERIES, 10/09/2015, 21:38. FINDINGS: Surgical changes and devices: None. Chest: Lungs are clear. Chronic elevation of left hemidiaphragm and left ba silar linear scarring. Heart size is normal. No pleural effusions. No pneumoperitoneum. Abdomen: No abnormally dilated loops of bowel are present. There are numerous air-fluid levels. Findings are suggestive of gastroenteritis. No bowel obstruction. No suspicious calcifications. Visualized solid organ contours appear normal. Bones: No suspicious bony lesions. IMPRESSION: Nonspecific bowel gas pattern, possibly representing gastroenteritis. Dictated by: Mat Price M.D. on 09/30/2018 at 19:17 MDM Narrative Medical decision making narrative: Patient has had multiple episodes of loose watery stools while in the ED. He is not hypotensive or tachycardic. Blood work actually reassuring and looks at about baseline. Have spoken with patient's PCP. She recommends he be admitted for at least ob servation he tends to decompensate quite quickly. and patient both feel better about this plan rather than discharge diet based on his previous history. His C diff is negative. Dr. velázquez except patient Discharge Plan Departure Patient Disposition: Admitted as Observation Clinical Impression: Colitis Discharge Date/Time: 09/30/18 22:28 Interventions: ED Discharge Assessment Last Done: 09/30/18 22:05 Admit Date/Time: 09/30/18 21:34 Admit Provider: Monica Collins
[2018-09-30 18:56] LABS: Add Manual Diff / Slide Review NO; Basophils Absolute Auto 0 /uL (0-100); Basophils Percent Auto 0.5 % (0-2); Eosinophils Absolute Auto 100 /uL (0-450); Eosinophils Percent Auto 1.3 % (2-4); Hemoglobin 12.8 g/dL (13.5-17.5); Lymphocytes Absolute Auto 1700 /uL (1100-4500); Lymphocytes Percent Auto 18.9 % (25-40); Mean Corpuscular HGB Conc 32.8 % (30-36); Mean Corpuscular Hemoglobin 28.9 PG (26-34); Mean Corpuscular Volume 88.3 fL (80-100); Monocytes Absolute Auto 400 /uL (0-900); Monocytes Percent Auto 4.5 % (3-14); Neutrophils Absolute Auto 6500 /uL (1500-7000); Neutrophils Percent Auto 74.8 % (50-75); Platelet Count 200 X10^3/uL (150-400); Red Blood Cell Count 4.41 X10^6/uL (4.5-5.9); Red Cell Distribution Width 15.5 % (11.6-14.8); White Blood Cell Count 8.7 X10^3/uL (4.5-11.0)
[2018-09-30 19:08] LABS: Lipase 84 U/L (23-300)
[2018-09-30] MEDS: SODIUM CHLORIDE 0.9% 1,000 ML 1000 ML IV (19:09)
[2018-09-30 19:10] LABS: Alanine Aminotransferase 30 IU/L (21-72); Albumin 3.7 g/dL (3.5-5.0); Albumin Globulin Ratio 1.3 (1.0-2.8); Alkaline Phosphatase 59 U/L (38-126); Aspartate Aminotransferase 23 IU/L (17-59); BUN Creatinine Ratio 14.3 (6-22); Bilirubin Total 0.4 mg/dL (0.2-1.3); Blood Urea Nitrogen 20 mg/dL (9-20); Calcium 9.6 mg/dL (8.4-10.2); Carbon Dioxide 30 mmol/L (22-32); Chloride 101 mmol/L (98-107); Estimated Glomerular Filt Rate 50.4 mL/min (>60); Globulin 2.8 g/dL (1.7-4.1); Glucose 97 mg/dL (80-110); HEMOLYSIS < 15 (0-50); Potassium 3.8 mmol/L (3.4-5.1); Sodium 138 mmol/L (137-145); Total Protein 6.5 g/dL (6.3-8.2)
[2018-09-30 20:00] VITALS: BP 126/82; PULSE 70; RESP 18; O2SAT 99
[2018-09-30 20:13] LABS: Clostridium Difficile Tox PCR Negative for C. diff
[2018-09-30] MEDS: LOPERAMIDE 2 MG CAPSULE 4 MG PO (21:20)
--- NOTE | 2018-09-30 22:40 | PC.NURSE ---
Evening Shift Pt came up to the floor at 2230 transferred to bed from ramesh himself stand by assist, pt was oriented to room.
[2018-09-30 22:45] VITALS: BP 134/87; PULSE 73; RESP 18; TEMP 36.6; O2SAT 94
[2018-09-30 23:50] VITALS: BP 129/83; PULSE 71; RESP 19; TEMP 36.6; O2SAT 97
[2018-10-01] VITALS (7 sets, daily range): BP systolic 108–148; BP diastolic 49–76; PULSE 61–77; RESP 17–20; TEMP 35.8–37; O2SAT 93–99; BMI 36.1
--- NOTE | 2018-10-01 00:04 | PC.NURSE ---
Assumed care of pt at 2300 on 09/30/18 with rigo Vilchis RN. Pt A/O, urgency and frequency with toileting. This bid writer asked pt to call for assist to bathroom but pt states I'll be fine. Refusing to wear non-skid socks. Pt is not happy he is NPO and states he is hungry. Demanding with nursing care and short temperament. Bed alarm placed on.
[2018-10-01] MEDS: methylPREDNISolone 125 MG/2 ML VIAL IV ×4 (00:27→21:29)
[2018-10-01] MEDS: DEXTROSE 5%-0.45% NS 1,000 ML 150 ML IV ×3 (00:27→12:09)
[2018-10-01 06:10] LABS: BUN Creatinine Ratio 12.3 (6-22); Blood Urea Nitrogen 16 mg/dL (9-20); Carbon Dioxide 25 mmol/L (22-32); Chloride 105 mmol/L (98-107); Estimated Glomerular Filt Rate 54.9 mL/min (>60); Glucose 123 mg/dL (80-110); HEMOLYSIS < 15 (0-50); Potassium 4.3 mmol/L (3.4-5.1); Sodium 137 mmol/L (137-145)
[2018-10-01 06:12] LABS: Add Manual Diff / Slide Review NO; Basophils Absolute Auto 0 /uL (0-100); Basophils Percent Auto 0.2 % (0-2); Eosinophils Absolute Auto 0 /uL (0-450); Eosinophils Percent Auto 0.2 % (2-4); Hematocrit 38.2 % (41-53); Hemoglobin 12.7 g/dL (13.5-17.5); Lymphocytes Absolute Auto 500 /uL (1100-4500); Lymphocytes Percent Auto 6.1 % (25-40); Mean Corpuscular HGB Conc 33.2 % (30-36); Mean Corpuscular Hemoglobin 29.4 PG (26-34); Mean Corpuscular Volume 88.5 fL (80-100); Monocytes Absolute Auto 0 /uL (0-900); Monocytes Percent Auto 0.6 % (3-14); Neutrophils Absolute Auto 7200 /uL (1500-7000); Neutrophils Percent Auto 92.9 % (50-75); Platelet Count 157 X10^3/uL (150-400); Red Blood Cell Count 4.31 X10^6/uL (4.5-5.9); Red Cell Distribution Width 15.8 % (11.6-14.8); White Blood Cell Count 7.7 X10^3/uL (4.5-11.0)
[2018-10-01] MEDS: LEVOTHYROXINE 75 MCG TABLET PO (09:12)
[2018-10-01] MEDS: MESALAMINE 800 MG TABLET.DR 2400 MG PO (10:07)
[2018-10-01] MEDS: SODIUM CHLORIDE 0.9% FLUSH 10 ML IV (14:24)
[2018-10-01] MEDS: FAMCICLOVIR 250 MG 250 EACH PO (15:05)
--- NOTE | 2018-10-01 15:53 | PC.NURSE ---
PATIENT FEELING BETTER TODAY, TOLERATED UPGRADED DIET ORDERED. DENIES N/V/D. VOIDING WITHOUT DIFFICULTY ALTHOUGH REPORTS SOME STRESS INCONTINENCE. IV FLUIDS ORDERED. AMBULATED IN HALLS WITH STANDBY ASSISTANCE, TOLERATED WELL. CALL LIGHT WITHI NREACH.,
--- NOTE | 2018-10-01 17:52 | PM.HP.1 ---
History of Present Illness Date Patient Seen: 10/01/18 Time Patient Seen: 07:45 Chief complaint: DIARRHEA Narrative: Patient is a 68-year-old male with ulcerative colitis who follows with GI at [facility], Dr. Rivas. He had a colonoscopy on September 04 showing mild inflammation throughout his colon with polyps and pseudopolyps, biopsies were taken and he was found to have active colitis in his descending and sigmoid colon. He presented a week later here with an episode of syncope, profuse diarrhea and influenza. He was actively rehydrated and treated with steroids and increase dose of mesalamine with improvement. He was discharged and has been at home until the night before last when he started having diarrhea again. His bottle of loperamide says that he can't take more than 4 tablets in a day so he presented to the emergency department that evening but was feeling better and left before being seen. He was trying to be proactive and not end up with dehydration in another episode of syncope. Yesterday his diarrhea had progressed throughout the day. Had multiple loose watery stools. He came back to the emergency department again. He does have a history of C diff however testing for this has been negative during his last admission as well as in the emergency department last night. He tells me that his diarrhea is nonbloody. He tells me that his influenza has resolved and he is no longer coughing. He also has chronic adrenal insufficiency and at baseline is on 2.5 mg of prednisone twice daily. He was on 60 mg of prednisone at discharge 2 weeks ago. 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 difficile colitis (Chronic ~06/2013) CMV (cytomegalovirus) status positive (Chronic) Pseudopolyp of ascending colon (Chronic) Squamous cell cancer of tongue (Chronic) Ulcerative colitis (Chronic) Renal cell carcinoma of left kidney (Resolved 09/27/15) Small bowel obstruction (Resolved) Surgical History Fractures (Resolved) History of neck surgery (Resolved ~2006) History of nephrectomy (~08/2015) History of third molar tooth extraction History of tonsillectomy (~1955) History of tonsillectomy (~1956) History of tonsillectomy (~1959) Status post colonoscopy Social History household members: significant other Smoking Status: Former smoker Family & Social History Social History: household members significant other Prior Living Arrangements House Safety & Behavioral: Feels Safe in Current Yes Environment Been Physically Hurt or No Threatened By a Person Suicidal Ideation Description None Suicide Plan Description No Plan Tobacco & Substance use: Smoking Status Former smoker alcohol intake never alcohol intake frequency 0-2 drinks per day Substance Use Type does not use Meds Home Medications Medication Instructions Recorded Confirmed Type cholecalciferol (vitamin D3) 2,000 2,000 unit PO DAILY 04/23/18 10/01/18 History unit capsule multivitamin capsule 1 cap PO DAILY 04/23/18 10/01/18 History ondansetron 4 mg PO Q6-8H PRN #10 tab 07/12/18 10/01/18 Rx Probiotic 2 cap PO BID 07/23/18 10/01/18 History ascorbic acid (vitamin C) 500 mg PO DAILY 07/23/18 10/01/18 History fluticasone propionate 1 spray INTRANASAL BID PRN 07/23/18 10/01/18 History levothyroxine 75 mcg PO DAILY 07/23/18 10/01/18 History magnesium 200 mg PO DAILY 07/23/18 10/01/18 History turmeric 600 mg PO DAILY 07/23/18 10/01/18 History nystatin-triamcinolone 100,000 1 applictn TOP BID #60 gram 08/21/18 10/01/18 Rx unit/g-0.1 % topical cream Iron Complex 1 tab PO DAILY 09/10/18 10/01/18 History melatonin 3 mg PO BEDTIME PRN 09/10/18 10/01/18 History prednisone 60 mg PO DAILY #42 tab 09/14/18 10/01/18 Rx famciclovir 250 mg tablet 250 mg PO BID PRN #30 tab 09/22/18 10/01/18 Rx mesalamine [Lialda] 1.2 g PO BID 09/30/18 09/30/18 History mesalamine [Lialda] 1.2 g PO BID 09/30/18 10/01/18 History Allergies Allergy/AdvReac Type Severity Reaction Status Date / Time cefazolin [CEFAZOLIN] Allergy Severe rash Verified 09/29/18 21:50 levofloxacin [From LEVAQUIN] Allergy Mild Verified 09/29/18 21:50 morphine [MORPHINE] Allergy Mild STOPPED Verified 09/29/18 21:50 BREATHING. Review of Systems Review of Systems All systems reviewed & are unremarkable except as noted in HPI and below Exam Vital Signs (past 8 hours): - 10/01/18 11:30 10/01/18 15:00 10/01/18 16:02 Temperature 98.6 F 97.6 F Pulse Rate 76 77 Respiratory Rate 18 18 Blood Pressure 115/49 L 148/76 H Pulse Oximetry 96 95 99 Oxygen Delivery Method Room Air Oxygen Flow Rate 0 Narrative Exam Narrative: General: Well-developed, well-nourished, male, no acute distress. Heart: Regular rate and rhythm, no murmurs appreciated Lungs: Clear to auscultation bilaterally, no wheezes, rales or rhonchi Abd: BS+, soft, minimal left lower quadrant tenderness, nondistended, no rebound, no guarding Extremities: Warm and well perfused, no edema Objective Labs Result Diagrams: 10/01/18 05:38 10/01/18 05:38 Labs: Laboratory Results - last 24 hr 09/30/18 09/30/18 09/30/18 18:30 18:30 18:30 WBC 8.7 RBC 4.41 L Hgb 12.8 L Hct 39.0 L MCV 88.3 MCH 28.9 MCHC 32.8 RDW 15.5 H Plt Count 200 Neut % (Auto) 74.8 Lymph % (Auto) 18.9 L Leslie % (Auto) 4.5 Eos % (Auto) 1.3 L Baso % (Auto) 0.5 Neut # (Auto) 6500 Lymph # (Auto) 1700 Leslie # (Auto) 400 Eos # (Auto) 100 Baso # (Auto) 0 Sodium 138 Potassium 3.8 Chloride 101 Carbon Dioxide 30 BUN 20 Creatinine 1.40 H Estimated GFR 50.4 L BUN/Creatinine Ratio 14.3 Glucose 97 Calcium 9.6 Total Bilirubin 0.4 AST 23 ALT 30 Alkaline Phosphatase 59 Total Protein 6.5 Albumin 3.7 Globulin 2.8 Albumin/Globulin Ratio 1.3 Lipase 84 C. difficile Tox (PCR) 09/30/18 10/01/18 10/01/18 19:20 05:38 05:38 WBC 7.7 RBC 4.31 L Hgb 12.7 L Hct 38.2 L MCV 88.5 MCH 29.4 MCHC 33.2 RDW 15.8 H Plt Count 157 Neut % (Auto) 92.9 H Lymph % (Auto) 6.1 L Leslie % (Auto) 0.6 L Eos % (Auto) 0.2 L Baso % (Auto) 0.2 Neut # (Auto) 7200 H Lymph # (Auto) 500 L Leslie # (Auto) 0 Eos # (Auto) 0 Baso # (Auto) 0 Sodium 137 Potassium 4.3 Chloride 105 Carbon Dioxide 25 BUN 16 Creatinine 1.30 H Estimated GFR 54.9 L BUN/Creatinine Ratio 12.3 Glucose 123 H Calcium 9.0 Total Bilirubin AST ALT Alkaline Phosphatase Total Protein Albumin Globulin Albumin/Globulin Ratio Lipase C. difficile Tox (PCR) Negative for c. diff Assessment & Plan Assessment & Plan narrative: 1. Diarrhea from likely Ulcerative colitis flare. Will treat with a burst of steroids, increase mesalamine dosing, trial of rectal mesalamine. Prn loperamide. follow stool culture, c. diff has been negative. 2. Chronic kidney disease stage 3. Mild bump in creatinine with improvement with hydration. 3. Chronic adrenal insufficiency. Will need to taper steroids slower this time. This might be more beneficial for his colitis as well. 3. Anemia from iron deficiency and chronic blood loss from chronic colitis. continue iron supplementation. counts seem stable. 4. Hypothyroid. Continue levothyroxine. His rubber [employer] and [employer] supervisor called the clinic today and has increased his dose. Code status: Full Code DVT prophylaxis: lovenox Disposition: Will require at least 2 midnights to treat this flare sufficiently and we can be sure he can manage at home. Time Spent With Patient Time with patient: Greater than 35 minutes Quality VTE Deep Vein Thrombosis/Pulmonary Embolism Present on Admission: No
[2018-10-02 01:50] VITALS: BP 139/85; PULSE 77; RESP 20; TEMP 36.3; O2SAT 96
[2018-10-02 02:08] VITALS: O2SAT 96
--- NOTE | 2018-10-02 04:04 | PC.NURSE ---
Pt has had no episodes of diarrhea on shift. Denies pain, lung sounds clear bilaterally. Tele NS, 96% o2 on room air, vital signs stable. Pt is on BRAT diet. Plans to D/C today w/ friend at 1200.
[2018-10-02] MEDS: methylPREDNISolone 125 MG/2 ML VIAL IV (05:49)
[2018-10-02 05:50] VITALS: BP 136/63; PULSE 64; RESP 18; TEMP 36.4; O2SAT 96
[2018-10-02 06:12] LABS: Hematocrit 38.2 % (41-53); Hemoglobin 12.7 g/dL (13.5-17.5)
[2018-10-02 06:20] LABS: BUN Creatinine Ratio 13.6 (6-22); Blood Urea Nitrogen 15 mg/dL (9-20); Calcium 9.3 mg/dL (8.4-10.2); Carbon Dioxide 26 mmol/L (22-32); Chloride 105 mmol/L (98-107); Estimated Glomerular Filt Rate > 60.0 mL/min (>60); Glucose 140 mg/dL (80-110); HEMOLYSIS < 15 (0-50); Potassium 3.7 mmol/L (3.4-5.1); Sodium 138 mmol/L (137-145)
[2018-10-02 07:32] VITALS: BP 131/78; PULSE 71; RESP 20; TEMP 36.2; O2SAT 96
[2018-10-02] MEDS: LEVOTHYROXINE 88 MCG TABLET PO (07:32)
[2018-10-02] MEDS: FAMCICLOVIR 250 MG 250 EACH PO (08:21)
[2018-10-02] MEDS: predniSONE 20 MG TABLET 40 MG PO (08:22)
[2018-10-02 09:00] VITALS: O2SAT 96
--- NOTE | 2018-10-02 09:00 | PM.DS.1 ---
History of Present Illness Chief complaint: DIARRHEA Narrative: Patient is a 68-year-old male with ulcerative colitis who follows with GI at [facility], Dr. Rivas. He had a colonoscopy on September 04 showing mild inflammation throughout his colon with polyps and pseudopolyps, biopsies were taken and he was found to have active colitis in his descending and sigmoid colon. He presented a week later here with an episode of syncope, profuse diarrhea and influenza. He was actively rehydrated and treated with steroids and increase dose of mesalamine with improvement. He was discharged and has been at home until the night before last when he started having diarrhea again. His bottle of loperamide says that he can't take more than 4 tablets in a day so he presented to the emergency department that evening but was feeling better and left before being seen. He was trying to be proactive and not end up with dehydration in another episode of syncope. Yesterday his diarrhea had progressed throughout the day. Had multiple loose watery stools. He came back to the emergency department again. He does have a history of C diff however testing for this has been negative during his last admission as well as in the emergency department last night. He tells me that his diarrhea is nonbloody. He tells me that his influenza has resolved and he is no longer coughing. He also has chronic adrenal insufficiency and at baseline is on 2.5 mg of prednisone twice daily. He was on 60 mg of prednisone at discharge 2 weeks ago. Discharge Providers Date of admission: 09/30/18 21:34 Discharge Date: 10/02/18 Primary care physician: Monica Collins DO Discharge provider: Monica Collins DO Summary Discharge Diagnosis: Ulcerative colitis flare with diarrhea Chronic kidney disease stage 3 Chronic adrenal insufficiency Iron deficiency anemia Hypothyroid Obesity Hospital Course: 1. Diarrhea from likely Ulcerative colitis flare. Responded to a burst of steroids and increase and mesalamine. His industrial psychology teacher had discussed rectal mesalamine however we did not have that available to do a trial of here. He is going to discuss this when he sees his industrial psychology teacher next. Continue with loperamide at home. If he needs an excessive amount he is been instructed to call. Stool culture negative for shiga toxin and Campylobacter and is still pending, c. diff has been negative. 2. Chronic kidney disease stage. Mild bump in creatinine with improvement with hydration. 3. Chronic adrenal insufficiency. Will need to taper steroids slower this time. This might be more beneficial for his colitis as well. He received 125 mg Q a while in-house and will be discharged on 40 mg prednisone say daily with both long taper. 3. Anemia from iron deficiency and chronic blood loss from chronic colitis. continue iron supplementation. counts remained stable. 4. Hypothyroid. Levothyroxine was increased to 88 mcg daily. Code status: Full Code DVT prophylaxis: Patient was ambulatory Disposition: Home with family, follow up in clinic next week Status at Discharge Cognitive/behavioral status at discharge: oriented Functional status at discharge: independent ambulation Overall status at discharge: patient is progressing back to baseline Time Spent with Patient Greater than 30 minutes Exam Vital Signs (past 8 hours): - 10/02/18 01:50 10/02/18 02:08 10/02/18 05:50 Temperature 97.4 F L 97.5 F L Pulse Rate 77 64 Respiratory Rate 20 18 Blood Pressure 139/85 136/63 Pulse Oximetry 96 96 96 Oxygen Delivery Method Room Air Oxygen Flow Rate 0 Narrative Exam Narrative: General: Well-developed, well-nourished, male, no acute distress. Heart: Regular rate and rhythm, no murmurs appreciated Lungs: Clear to auscultation bilaterally, no wheezes, rales or rhonchi Abd: BS+, soft, minimal left lower quadrant tenderness, nondistended, no rebound, no guarding Extremities: Warm and well perfused, no edema Objective Labs Result Diagrams: 10/02/18 05:54 10/02/18 05:54 Labs: Laboratory Results - last 24 hr 10/02/18 10/02/18 05:54 05:54 Hgb 12.7 L Hct 38.2 L Sodium 138 Potassium 3.7 Chloride 105 Carbon Dioxide 26 BUN 15 Creatinine 1.10 Estimated GFR > 60.0 BUN/Creatinine Ratio 13.6 Glucose 140 H Calcium 9.3 Discharge Plan Discharge Plan Discharge Problem: Colitis Patient Disposition: Home Discharge Med Rec/Prescriptions Prescriptions: New levothyroxine 88 mcg Tablet 88 mcg PO 0600 Qty: 0 RF: 0 prednisone 20 mg Tablet See Rx Instructions .ROUTE .COMPLEX Qty: 20 RF: 0 Continued famciclovir 250 mg tablet 250 mg PO BID PRN (Reason: herpes zoster) Qty: 30 RF: 1 multivitamin capsule 1 cap PO DAILY RF: 0 cholecalciferol (vitamin D3) 2,000 unit capsule 2,000 unit PO DAILY RF: 0 nystatin-triamcinolone 100,000-0.1 unit/g-% cream 1 applictn TOP BID Qty: 60 RF: 0 Probiotic 20 billion cell Capsule 2 cap PO BID RF: 0 fluticasone propionate 50 mcg/actuation spray,suspension 1 spray Intranasal BID PRN (Reason: Congestion) RF: 0 ascorbic acid (vitamin C) 500 mg Tablet,Chewable 500 mg PO DAILY RF: 0 magnesium 200 mg Tablet 200 mg PO DAILY RF: 0 turmeric 300 mg 600 mg PO DAILY RF: 0 melatonin 3 mg Tablet 3 mg PO BEDTIME PRN (Reason: Sleep) RF: 0 Iron Complex 27 mg 1 tab PO DAILY RF: 0 ondansetron 4 mg tablet,disintegrating 4 mg PO Q6-8H PRN (Reason: nausea and vomiting) Qty: 10 RF: 0 mesalamine [Lialda] 1.2 gram Tablet,Delayed Release (Dr/Ec) 1.2 g PO BID RF: 0 Discontinued levothyroxine 75 mcg tablet 75 mcg PO DAILY RF: 0 prednisone 20 mg tablet 60 mg PO DAILY Qty: 42 RF: 0 mesalamine [Lialda] 1.2 gram tablet,delayed release (DR/EC) 1.2 g PO BID RF: 0 Follow up/Referrals: Monica Collins DO [Primary Care Provider] - 1 Week Provider Discharge Instructions Diet: Diet as Tolerated Activity: ambulate twice daily Skin/Wound/Dressing Care Report to your healthcare provider any signs of infection, such as:: chills, fever Visit Report/Discharge Packet Instructions: Diarrhea Discharge Data Primary Care Provider: Monica Collins Attending Provider: Monica Collins Admit Date/Time: 09/30/18 21:34 Quality VTE Deep Vein Thrombosis/Pulmonary Embolism Present on Admission: No
--- NOTE | 2018-10-02 10:31 | PC.NURSE ---
Addendum entered by Nikki Serrato R.N. 10/02/18 13:55: DC - after lunch when friend arrived, belongings gathered, including glasses, own meds, clothing, slippers, cell phone and canvas shrinker, escorted via wc to car. Original Note: AM NOTE - pt is alert, watching tv, no complaint discomfort, + bt, states did have a gas and small liq stool with particles in it during night, hr reg, bs clear, + bt, karen diet. Dr. Collins in and pt will dc home today, pt own meds returned to him, tele and sl dc'd.
[2018-10-02 11:15] VITALS: BP 128/69; PULSE 75; RESP 18; TEMP 36.3; O2SAT 96
--- NOTE | 2018-10-02 16:18 | PC.NURSE ---
Donna from care management needed assistance changing patient order/status, from inpatient to obs per Dr Collins verbal order. Inpatient order cancelled as requested.
--- NOTE | 2018-10-03 12:50 | CM.DPNOTE ---
Late Entry DC Note: Pt DC 10.02.18, observation status, Dr Collins indicated pt was back to baseline and ready to return home safely w/his family. No SW needs indicated. NONI Davidson Discharge Planning/Care Management Advanced directive, confirm from FAMILY Start: 10/01/18 03:39 Freq: Q24H Status: Discharge Protocol: Document 10/02/18 09:00 NEE (Rec: 10/02/18 10:30 NEE [id number]) Advance Directive, confirm on record Time 09:30 Person contacted pt Copy received No CM Discharge Assessment Start: 10/01/18 09:26 Freq: Status: Discharge Protocol: Document 10/01/18 09:27 ALANA (Rec: 10/01/18 09:42 JW [id number]) Discharge Planning Assessment Assigned Optician Apprentice NONI Ramos DPOA/Assigned Designee Name Shelli Bay, spouse Aleksandar Bay, son Contact Information [phone], spouse and son [phone] Advance Directives? Yes: at home per /will bring in later Advance Directives on File No History Provided By Patient Significant Other Medical Record Prior Living Arrangements House Household Members significant other Type of transporation used prior to Drives own vehicle admit Independent with ADL's Yes Is patient alert and oriented? Yes Barriers to Discharge No Comment Pt admitted under obs w/ Diarrhea. Pt DC from after being admitted for Flu A+ Pneumonia and ulcerative colitis flare. PCP: Dr Collins Payer: Medicare Pt lives at home w/spouse, indp at baseline. DCP pending progress towards functional baseline and medical clearance. Likely return home w/spouse, as he did upon his last DC from . Further assessment needed. Discharge Plan Home Transportation Arrangement Family Additional Comment Referral need pending medical course and possibly therapy evals Review Status In Process
== END 2018-10-02 12:45 | disposition home or self-care (01) ==
LOC: ED 21:28 → AC 21:35
PROVIDERS: Admitting Provider Family Medicine; Emergency Provider Emergency Medicine; Family Provider Nurse Practitioner; PCP Family Medicine; Visit Provider Family Medicine
DX: K51.90 Ulcerative colitis, unspecified, without complications (principal); R11.2 Nausea with vomiting, unspecified; R19.7 Diarrhea, unspecified; N18.3 Chronic kidney disease, stage 3 (moderate); E27.40 Unspecified adrenocortical insufficiency; D50.0 Iron deficiency anemia secondary to blood loss (chronic); E03.9 Hypothyroidism, unspecified; E66.9 Obesity, unspecified; Z87.891 Personal history of nicotine dependence
CPT/HCPCS: 36415; 36591; 74022; 80048; 80053; 83690; 85014; 85018; 85025; 87045; 87493; 87899; 96361; 96374; 96376; 99217; 99220; 99283; 99285; G0378; J2930

== ENCOUNTER → 2018-10-08 15:38 | Outpatient (CLI) | payer MEDICARE, SELFPAY ==
[2018-10-01 03:29] VITALS: BMI 36.1
[2018-10-08 16:41] LABS: Add Manual Diff / Slide Review NO; Basophils Absolute Auto 0 /uL (0-100); Basophils Percent Auto 0.1 % (0-2); Eosinophils Absolute Auto 0 /uL (0-450); Eosinophils Percent Auto 0.5 % (2-4); Hematocrit 40.3 % (41-53); Lymphocytes Absolute Auto 600 /uL (1100-4500); Lymphocytes Percent Auto 8.9 % (25-40); Mean Corpuscular HGB Conc 32.3 % (30-36); Mean Corpuscular Volume 89.7 fL (80-100); Monocytes Absolute Auto 200 /uL (0-900); Monocytes Percent Auto 3.1 % (3-14); Neutrophils Absolute Auto 6200 /uL (1500-7000); Neutrophils Percent Auto 87.4 % (50-75); Platelet Count 178 X10^3/uL (150-400); Red Blood Cell Count 4.49 X10^6/uL (4.5-5.9); Red Cell Distribution Width 16.3 % (11.6-14.8); White Blood Cell Count 7.1 X10^3/uL (4.5-11.0)
[2018-10-08 17:08] LABS: B Type Natriuretic Peptide < 100 (<100)
[2018-10-08 18:16] LABS: BUN Creatinine Ratio 21.7 (6-22); Blood Urea Nitrogen 26 mg/dL (9-20); Calcium 9.5 mg/dL (8.4-10.2); Carbon Dioxide 29 mmol/L (22-32); Chloride 100 mmol/L (98-107); Estimated Glomerular Filt Rate > 60.0 mL/min (>60); Glucose 116 mg/dL (80-110); HEMOLYSIS < 15 (0-50); Potassium 4.7 mmol/L (3.4-5.1); Sodium 138 mmol/L (137-145)
== END ==
PROVIDERS: Family Provider Nurse Practitioner; PCP Family Medicine; Visit Provider Family Medicine
DX: E27.40 Unspecified adrenocortical insufficiency (principal); K52.9 Noninfective gastroenteritis and colitis, unspecified; N18.2 Chronic kidney disease, stage 2 (mild)
CPT/HCPCS: 36415; 80048; 83880; 85025

== ENCOUNTER → 2019-02-19 14:47 | Outpatient (CLI) | payer MEDICARE, SELFPAY ==
[2018-10-01 03:29] VITALS: BMI 36.1
[2019-02-19 15:41] LABS: Add Manual Diff / Slide Review NO; Basophils Absolute Auto 100 /uL (0-100); Eosinophils Absolute Auto 200 /uL (0-450); Eosinophils Percent Auto 2.4 % (2-4); Hemoglobin 12.7 g/dL (13.5-17.5); Lymphocytes Absolute Auto 1100 /uL (1100-4500); Lymphocytes Percent Auto 13.5 % (25-40); Mean Corpuscular HGB Conc 32.5 % (30-36); Mean Corpuscular Hemoglobin 26.9 PG (26-34); Mean Corpuscular Volume 82.8 fL (80-100); Monocytes Absolute Auto 500 /uL (0-900); Monocytes Percent Auto 5.8 % (3-14); Neutrophils Absolute Auto 6300 /uL (1500-7000); Neutrophils Percent Auto 77.3 % (50-75); Platelet Count 240 X10^3/uL (150-400); Red Blood Cell Count 4.71 X10^6/uL (4.5-5.9); Red Cell Distribution Width 14.6 % (11.6-14.8); White Blood Cell Count 8.2 X10^3/uL (4.5-11.0)
[2019-02-19 16:08] LABS: Blood Urea Nitrogen 21 mg/dL (9-20); Calcium 9.6 mg/dL (8.4-10.2); Carbon Dioxide 31 mmol/L (22-32); Chloride 101 mmol/L (98-107); Estimated Glomerular Filt Rate 50.2 mL/min (>60); Glucose 90 mg/dL (80-110); HEMOLYSIS < 15 (0-50); Potassium 4.3 mmol/L (3.4-5.1); Sodium 139 mmol/L (137-145)
[2019-02-19 16:42] LABS: Ferritin 15.5 ng/mL (17.9-464)
== END ==
PROVIDERS: PCP Family Medicine; Visit Provider Family Medicine
DX: D64.9 Anemia, unspecified (principal); N18.2 Chronic kidney disease, stage 2 (mild)
CPT/HCPCS: 36415; 80048; 82728; 85025

== ENCOUNTER → 2019-06-26 13:17 | Outpatient (ROUT) | payer MEDICARE, SELFPAY ==
[2019-04-01 11:58] VITALS: BMI 36.1
[2019-06-26 14:06] LABS: BUN Creatinine Ratio 14.3 (6-22); Blood Urea Nitrogen 20 mg/dL (9-20); Calcium 9.7 mg/dL (8.4-10.2); Carbon Dioxide 33 mmol/L (22-32); Chloride 99 mmol/L (98-107); Estimated Glomerular Filt Rate 50.2 mL/min (>60); Glucose 77 mg/dL (80-110); HEMOLYSIS < 15 (0-50); Potassium 3.7 mmol/L (3.4-5.1); Sodium 139 mmol/L (137-145)
[2019-06-26 14:24] LABS: Free T3, Triiodothyronine Free 2.12 pg/mL (2.77-5.27); Free T4, Direct Thyroxine 1.06 ng/dL (0.78-2.19)
[2019-06-26 14:37] LABS: Thyroid Stimulating Hormone 0.54 uIU/mL (0.47-4.68)
== END ==
PROVIDERS: PCP Family Medicine; Visit Provider Internal Medicine Endocrinology, Diabetes & Metabolism
DX: E27.49 Other adrenocortical insufficiency (principal)
CPT/HCPCS: 36415; 80048; 84439; 84443; 84481

== ENCOUNTER → 2020-01-28 09:50 | Outpatient (CLI) | payer MEDICARE, SELFPAY ==
[2019-04-01 11:58] VITALS: BMI 36.1
[2020-01-28 10:38] LABS: Add Manual Diff / Slide Review NO; Basophils Absolute Auto 0 /uL (0-100); Basophils Percent Auto 0.9 % (0-2); Eosinophils Absolute Auto 200 /uL (0-450); Eosinophils Percent Auto 3.2 % (2-4); Hematocrit 39.1 % (41-53); Hemoglobin 12.8 g/dL (13.5-17.5); Lymphocytes Absolute Auto 800 /uL (1100-4500); Lymphocytes Percent Auto 17.4 % (25-40); Mean Corpuscular HGB Conc 32.6 % (30-36); Mean Corpuscular Hemoglobin 27.6 PG (26-34); Mean Corpuscular Volume 84.6 fL (80-100); Monocytes Absolute Auto 300 /uL (0-900); Monocytes Percent Auto 5.4 % (3-14); Neutrophils Absolute Auto 3500 /uL (1500-7000); Neutrophils Percent Auto 73.1 % (50-75); Platelet Count 187 X10^3/uL (150-400); Red Blood Cell Count 4.63 X10^6/uL (4.5-5.9); Red Cell Distribution Width 14.7 % (11.6-14.8); White Blood Cell Count 4.9 X10^3/uL (4.5-11.0)
[2020-01-28 11:27] LABS: BUN Creatinine Ratio 14.9 (6-22); Blood Urea Nitrogen 20 mg/dL (9-20); Calcium 9.6 mg/dL (8.4-10.2); Carbon Dioxide 34 mmol/L (22-32); Chloride 98 mmol/L (98-107); Estimated Glomerular Filt Rate 52.9 mL/min (>60); Glucose 80 mg/dL (80-110); HEMOLYSIS < 15 (0-50); Magnesium 1.9 mg/dL (1.6-2.3); Potassium 3.9 mmol/L (3.4-5.1); Sodium 136 mmol/L (137-145)
== END ==
PROVIDERS: PCP Family Medicine; Referring Provider Family Medicine; Visit Provider Family Medicine
DX: D64.9 Anemia, unspecified (principal); E27.40 Unspecified adrenocortical insufficiency; N18.2 Chronic kidney disease, stage 2 (mild)
CPT/HCPCS: 36415; 80048; 83735; 85025

== ENCOUNTER 2020-01-28 11:34 | Emergency (ER) | payer MEDICARE, SELFPAY ==
[2019-04-01 11:58] VITALS: BMI 36.1
[2020-01-28] VITALS (7 sets, daily range): BP systolic 126–134; BP diastolic 70–75; PULSE 66–82; RESP 17–19; TEMP 36.9; O2SAT 95–99; BMI 36.6
--- NOTE | 2020-01-28 12:13 | PC.NURSE ---
Answered pt's call light. Patients spouse asking about blood results that were supposed to come back. I asked for more details as they had been in the department for 10 minutes. Spouse then informed me of the blood draw that was done today, and asked for the results of his potassium. I told them that the doctor would be able to discuss their concerns with the results. Gave patient more warm blankets and dimmed the lights to make him comfortable.
--- NOTE | 2020-01-28 12:30 | ED_ITS ---
HPI - Weakness General Chief complaint: Weakness Stated complaint: weakness, possible COVID Time Seen by Provider: 01/28/20 12:09 Source: patient Mode of arrival: Ambulatory Limitations: no limitations History of Present Illness HPI Narrative: Patient is a 69-year-old male with history of adrenal insufficiency, ulcerative colitis and hypothyroid presenting with myalgias and chills ongoing for the past 2 days. He has low-grade fever 99 and is always cold. He denies any chest pain shortness of breath sore throat changes in smell or taste, abdominal pain, nausea vomiting or diarrhea. He was initially seen by his primary care who sent him to the ED for further evaluation. Patient was possibly exposed to COVID-19. His traveled to [place], but she has no symptoms and he was tested 2 weeks ago and was negative. He has had outpatient blood work already this morning. WBC 4.9 creatinine 1.34 potassium 3.9 sodium 136-dioxide 30 for BUN 20, overall his blood work is reassuring. MD Complaint: generalized weakness Related Data Home Medications Medication Instructions Recorded Confirmed cholecalciferol (vitamin D3) 50 2,000 unit PO DAILY 04/23/18 01/28/20 mcg (2,000 unit) capsule Probiotic 2 cap PO BID 07/23/18 01/28/20 magnesium 200 mg PO DAILY 07/23/18 01/28/20 turmeric 600 mg PO DAILY 07/23/18 01/28/20 Iron Complex 1 tab PO DAILY 09/10/18 01/28/20 mesalamine [Lialda] 1.2 g PO BID 09/30/18 01/28/20 prednisone 5 mg tablet 2.5 mg PO BID tab 07/01/19 01/28/20 Previous Rx's Medication Instructions Recorded levothyroxine 88 mcg PO 0600 #0 tab 10/02/18 glutamine 500 mg capsule 500 mg PO BID #180 cap 10/08/18 econazole 1 % topical cream 1 applictn TOP BID #30 gram 08/04/19 fluticasone propionate 50 1 spray INTRANASAL BID PRN #18.2 ml 10/04/19 mcg/actuation nasal spray,suspension famciclovir 250 mg tablet 250 mg PO BID PRN #30 tab 01/05/20 Allergies Allergy/AdvReac Type Severity Reaction Status Date / Time cefazolin [CEFAZOLIN] Allergy Severe rash Verified 01/28/20 12:04 levofloxacin [From LEVAQUIN] Allergy Mild Verified 01/28/20 12:04 morphine [MORPHINE] Allergy Mild STOPPED Verified 01/28/20 12:04 BREATHING. Review of Systems Review of Systems ROS Unobtainable: All systems reviewed & are unremarkable except as noted in HPI and below Constitutional Constitutional: Reports as per HPI, Reports chills, Reports fatigue, Reports fever(s) and Reports weakness Eyes Eyes: Denies change in vision, Denies eye discharge, Denies irritation and Denies loss of vision ENT Ears, Nose, Mouth, and Throat: Denies change in voice, Denies neck pain and Denies sore throat Cardiovascular Cardiovascular: Denies chest pain, Denies irregular heart rhythm, Denies lightheadedness, Denies palpitations, Denies dyspnea, Denies dyspnea on exertion and Denies orthopnea Respiratory Respiratory: Denies cough, Denies dyspnea, Denies dyspnea on exertion and Denies wheezing Gastrointestinal Gastrointestinal: Denies abdominal pain, Denies change in bowel habits, Denies diarrhea, Denies nausea and Denies vomiting Musculoskeletal Musculoskeletal: Denies neck pain Integumentary/Breasts Skin/Breast: Denies pruritus, Denies erythema, Denies rash and Denies wounds Neurologic Neurologic: Denies loss of vision and Reports weakness Endocrine Endocrine: Reports fatigue and Denies palpitations Allergic/Immunologic Allergic/Immunologic: Denies wheezing Patient History Medical History Acquired hypothyroidism (Chronic) Acute dehydration (Resolved) Anemia (Chronic 10/13/13) C. 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) Influenza A (Inactive) Intractable diarrhea (Resolved) Obesity with body mass index (BMI) of 30.0 to 39.9 (Chronic 08/19/15) Onychomycosis (Chronic) Pseudopolyp of ascending colon (Chronic) Pseudopolyposis of colon (Chronic 09/17/13) Renal cell carcinoma of left kidney (Resolved 09/27/15) Small bowel obstruction (Resolved) 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) Syncope (Inactive) Ulcerative colitis (Chronic) Ulcerative colitis (Chronic) Ventral hernia without obstruction or gangrene (Chronic 08/07/16) Surgical History Fractures (Resolved) History of neck surgery (Resolved ~2006) History of nephrectomy (~08/2015) History of third molar tooth extraction History of tonsillectomy (~1955) History of tonsillectomy (~1956) History of tonsillectomy (~1959) Status post colonoscopy Social History household members: significant other Smoking Status: Former smoker alcohol intake: never Smoking Status: Former smoker alcohol intake frequency: 0-2 drinks per day Substance Use Type: does not use Exam Initial Vital Signs Initial Vital Signs: Vital Signs Temperature 98.5 F 01/28/20 11:55 Pulse Rate 74 01/28/20 11:55 Respiratory Rate 17 01/28/20 11:55 Blood Pressure 134/70 01/28/20 11:55 Pulse Oximetry 96 01/28/20 11:55 GENERAL: Alert slightly weak male and in no acute distress. HEENT: Head atraumatic,EOMI, pupils reactive, face symmetric, moist mucous membranes CARDIOVASCULAR: Regular rate and rhythm without murmurs, rubs or gallops. RESPIRATORY: Breath sounds equal bilaterally, no wheezes rales or rhonchi. ABDOMEN: Soft, nontender. Normoactive bowel sounds all 4 quadrants. No guarding or rebound. EXTREMITIES: Normal range of motion, no clubbing or edema. Neurovascularly intact NEUROLOGICAL: Alert and oriented x4.Normal gait and speech. SKIN: Warm, dry, no laceration, no petechiae, no rashes or lesions. Course Orders Ordered: ED Orders 01/28/20 15:35 Urinalysis and Microscopic Stat Discontinued Medications Sodium Chloride (Normal Saline 0.9%) 1,000 mls @ 1,000 mls/hr IV BOLUS ONE Stop: 01/28/20 13:41 Last Admin: 01/28/20 13:04 Dose: 1,000 mls/hr Documented by: ARNEL Ketorolac Tromethamine (Toradol) 30 mg IV NOW ONE Stop: 01/28/20 12:43 Last Admin: 01/28/20 13:03 Dose: 30 mg Documented by: ARNEL Vital Signs Vital signs: Vital Signs - 8 hr 01/28/20 11:55 01/28/20 13:45 01/28/20 13:46 Temperature 98.5 F Pulse Rate 74 73 77 Respiratory Rate 17 19 Blood Pressure 134/70 126/75 Pulse Oximetry 96 95 97 01/28/20 14:00 01/28/20 14:30 01/28/20 15:00 Temperature Pulse Rate 70 70 66 Respiratory Rate Blood Pressure Pulse Oximetry 98 97 96 01/28/20 15:33 Temperature Pulse Rate 82 Respiratory Rate Blood Pressure Pulse Oximetry 99 MDM - Weakness Lab Data Labs: Lab Results 01/28/20 Range/Units 15:35 Urine Color Yellow Urine Appearance Clear Urine pH 5.0 (4.5-8.0) Ur Specific [place] 1.025 (1.000-1.035) Urine Protein 1+ H (Negative) Urine Glucose (UA) Negative (Negative) g/dL Urine Ketones Negative (NEGATIVE) Urine Occult Blood Negative (Negative) Urine Nitrate Negative (Negative) Urine Bilirubin Negative (NEGATIVE) Urine Urobilinogen 0.2 (0.2) E.U./dL Ur Leukocyte Esterase Negative (NEGATIVE) Urine RBC None seen (0-5/HPF) Urine WBC None seen (0-5/HPF) Urine Bacteria None seen (None) Hyaline Casts 1-5/lpf (None) Urine Mucus 1+ H (Negative) Ur Culture Indicated? Cult not indicated MDM Narrative Medical decision making narrative: Patient is afebrile he does not have leukocytosis he has very vague symptoms of only weakness. He has no respiratory symptoms or COVID-19 symptoms he started Rady been tested for COVID-19 and it has been negative. He denies any urine symptoms while. He received 1 L of IV fluids and Toradol and is body aches have improved. He denies any UTI symptoms however he is still not urinated. Patient did have an episode of some leg numbness while sitting in the gurney. A quickly improved with positioning and tingling his legs off the gurney. He had no weakness in any extremity. Unlikely to be stroke or TIA because symptoms improved so quickly with change in position. Patient's 2nd COVID-19 test is pending and will follow up outpatient. Discharge Plan Departure Patient Disposition: Home Clinical Impression: Weakness Discharge Date/Time: 01/28/20 15:49 Instructions: DI for Muscle Weakness Activity Restrictions/Additional Instructions: *You have been diagnosed with generalized weakness *What to do: *Continue to take medications as directed Tylenol 650 mg every 4-6 hours if needed for [id number] pain Ibuprofen 600 mg every 6-8 hours admitted for [id number] pain *Follow up with your primary care provider in 2-3 days *Return to ER if you should have increasing long as shortness of breath, or any new, worsening or concerning symptoms Prescriptions: No Action econazole 1 % cream 1 applictn TOP BID Qty: 30 RF: 0 fluticasone propionate 50 mcg/actuation spray,suspension 1 spray Intranasal BID PRN (Reason: Congestion) Qty: 18.2 RF: 1 famciclovir 250 mg tablet 250 mg PO BID PRN (Reason: herpes zoster) Qty: 30 RF: 1 cholecalciferol (vitamin D3) 2,000 unit capsule 2,000 unit PO DAILY RF: 0 L-Glutamine 500 mg capsule 500 mg PO BID Qty: 180 RF: 0 prednisone 5 mg tablet 2.5 mg PO BID RF: 0 Probiotic 20 billion cell Capsule 2 cap PO BID RF: 0 magnesium 200 mg Tablet 200 mg PO DAILY RF: 0 turmeric 300 mg 600 mg PO DAILY RF: 0 Iron Complex 27 mg 1 tab PO DAILY RF: 0 mesalamine [Lialda] 1.2 gram Tablet,Delayed Release (Dr/Ec) 1.2 g PO BID RF: 0 levothyroxine 88 mcg Tablet 88 mcg PO 0600 Qty: 0 RF: 0 Referrals: Monica Collins DO [Primary Care Provider] -
[2020-01-28] MEDS: KETOROLAC 60 MG/2 ML VIAL 30 MG IV (13:03)
[2020-01-28] MEDS: SODIUM CHLORIDE 0.9% 1,000 ML 1000 ML IV (13:04)
[2020-01-28 15:43] LABS: Bacteria Urine None Seen; RBC Urine None Seen (0-5/HPF); WBC Urine None Seen (0-5/HPF)
[2020-01-28 15:44] LABS: Appearance Urine UA CLEAR; Bilirubin Urine UA NEGATIVE (NEGATIVE); Color Urine UA YELLOW; Glucose Urine UA NEGATIVE (Negative); Ketones Urine UA NEGATIVE (NEGATIVE); Leukocyte Esterase Urine UA NEGATIVE (NEGATIVE); Nitrite Urine UA NEGATIVE (Negative); Occult Blood Urine UA NEGATIVE (Negative); Protein Urine UA 1+ (Negative); Specific Gravity Urine UA 1.025 (1.000-1.035); Urobilinogen Urine UA 0.2 E.U./dL (0.2)
[2020-01-28 15:50] LABS: Hyaline Casts Urine 1-5/LPF; Mucus Urine 1+ (Negative)
[2020-01-28 15:51] LABS: Culture Indicated Urine Cult Not Indicated
[2020-01-30 18:08] LABS: COVID19 Sendout Not Detected (Not Detected)
--- NOTE | 2020-02-22 08:04 | PC.NURSE ---
Late entry: IV NS 1000 mL bolus complete 1345 hrs.
== END 2020-01-28 15:49 | disposition home or self-care (01) ==
PROVIDERS: Emergency Provider Emergency Medicine; PCP Family Medicine
DX: R53.1 Weakness (principal); R50.9 Fever, unspecified; Z03.818 Encounter for observation for suspected exposure to other biological agents ruled out
CPT/HCPCS: 36415; 81001; 87635; 96361; 96374; 99284; J1885

== ENCOUNTER → 2020-03-01 08:36 | Outpatient (CLI) | payer MEDICARE, SELFPAY ==
[2019-04-01 11:58] VITALS: BMI 36.1
[2020-03-01 09:41] LABS: BUN Creatinine Ratio 16.4 (6-22); Blood Urea Nitrogen 21 mg/dL (9-20); Calcium 9.3 mg/dL (8.4-10.2); Carbon Dioxide 34 mmol/L (22-32); Chloride 100 mmol/L (98-107); Estimated Glomerular Filt Rate 55.6 mL/min (>60); Glucose 84 mg/dL (80-110); HEMOLYSIS < 15 (0-50); Sodium 138 mmol/L (137-145)
[2020-03-01 09:55] LABS: Free T4, Direct Thyroxine 0.98 ng/dL (0.78-2.19)
[2020-03-01 10:09] LABS: Thyroid Stimulating Hormone 0.394 uIU/mL (0.47-4.68)
[2020-03-02 09:41] LABS: Adrenocorticotropic Hormone <1.5 pg/mL (7.2-63.3)
== END ==
PROVIDERS: PCP Family Medicine; Referring Provider Internal Medicine; Visit Provider Internal Medicine
DX: E03.9 Hypothyroidism, unspecified (principal); E27.49 Other adrenocortical insufficiency
CPT/HCPCS: 36415; 80048; 82024; 84439; 84443

== ENCOUNTER 2020-03-23 18:04 | Emergency (ER) | payer MEDICARE, SELFPAY ==
[2019-04-01 11:58] VITALS: BMI 36.1
[2020-03-23 18:16] VITALS: BP 116/80; PULSE 78; RESP 17; TEMP 35.9; O2SAT 96; BMI 36.6
--- NOTE | 2020-03-23 19:00 | ED_ITS ---
HPI - GI Bleed General Chief complaint: GI Bleed Stated complaint: blood in stool Time Seen by Provider: 03/23/20 18:40 Source: patient Mode of arrival: Ambulatory Limitations: no limitations History of Present Illness HPI Narrative: 70M nonsmoker with history of ulcerative colitis presents with his in the chief complaint of 1 episode of bright red bleeding per rectum. He denies any dizziness, weakness or lightheadedness. He denies nausea, vomiting. He denies any abdominal pain. He denies any change in diet. He states this feels different than when his ulcerative colitis flares which usually involves mucous and off color stool. He denies disease blood thinners, excessive use of NSAIDs. He states he has been told in the past the has diverticuli on colonoscopy. He had 1 episode earlier and states it is not ongoing. complaint: blood on toilet paper Onset (ago): hour(s) Severity: moderate Relieving factors: none Exacerbating factors: none Associated symptoms: denies other symptoms Treatments Prior to Arrival: none Related Data Home Medications Medication Instructions Recorded Confirmed cholecalciferol (vitamin D3) 50 2,000 unit PO DAILY 04/23/18 01/28/20 mcg (2,000 unit) capsule Probiotic 2 cap PO BID 07/23/18 01/28/20 magnesium 200 mg PO DAILY 07/23/18 01/28/20 turmeric 600 mg PO DAILY 07/23/18 01/28/20 Iron Complex 1 tab PO DAILY 09/10/18 01/28/20 mesalamine [Lialda] 1.2 g PO BID 09/30/18 01/28/20 prednisone 5 mg tablet 2.5 mg PO BID tab 07/01/19 01/28/20 fiber gummy PO Q OTHER DAY 02/02/20 methyl B12 PO 02/02/20 Previous Rx's Medication Instructions Recorded levothyroxine 88 mcg PO 0600 #0 tab 10/02/18 glutamine 500 mg capsule 500 mg PO BID #180 cap 10/08/18 econazole 1 % topical cream 1 applictn TOP BID #30 gram 08/04/19 fluticasone propionate 50 1 spray INTRANASAL BID PRN #18.2 ml 10/04/19 mcg/actuation nasal spray,suspension famciclovir 250 mg tablet 250 mg PO BID PRN #30 tab 01/05/20 Allergies Allergy/AdvReac Type Severity Reaction Status Date / Time cefazolin [CEFAZOLIN] Allergy Severe rash Verified 03/23/20 18:17 levofloxacin [From LEVAQUIN] Allergy Mild Verified 03/23/20 18:17 morphine [MORPHINE] Allergy Mild STOPPED Verified 03/23/20 18:17 BREATHING. Review of Systems Constitutional Constitutional: Denies chills, Denies fatigue, Denies fever(s), Denies frequent falls, Denies lethargy and Denies weakness Eyes Eyes: Denies change in vision, Denies eye discharge, Denies irritation and Denies loss of vision ENT Ears, Nose, Mouth, and Throat: Denies change in voice, Denies dizziness, Denies neck pain, Denies sore throat and Denies throat swelling Cardiovascular Cardiovascular: Denies chest pain, Denies irregular heart rhythm, Denies lig htheadedness, Denies palpitations, Denies dyspnea, Denies dyspnea on exertion and Denies orthopnea Respiratory Respiratory: Denies cough, Denies dyspnea, Denies dyspnea on exertion and Denies wheezing Gastrointestinal Gastrointestinal: Denies abdominal pain, Reports hematochezia, Denies change in bowel habits, Denies diarrhea, Denies nausea and Denies vomiting Musculoskeletal Musculoskeletal: Denies neck pain and Denies numbness Integumentary/Breasts Skin/Breast: Denies pruritus, Denies erythema, Denies rash and Denies wounds Neurologic Neurologic: Denies behavioral changes, Denies confusion, Denies dizziness, Denies frequent falls, Denies loss of vision, Denies numbness and Denies weakness Psychiatric Psychiatric: Denies anxiety, Denies behavioral changes, Denies confusion, Denies depression, Denies homicidal ideation and Denies suicidal ideation Endocrine Endocrine: Denies fatigue, Denies flushing and Denies palpitations Hematologic/Lymphatic Hematologic/Lymphatic: Denies easy bruising Allergic/Immunologic Allergic/Immunologic: Denies urticaria, Denies throat swelling and Denies w heezing Patient History Medical History Acquired hypothyroidism (Chronic) Acute dehydration (Resolved) Anemia (Chronic 10/13/13) C. 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) Influenza A (Inactive) Intractable diarrhea (Resolved) Obesity with body mass index (BMI) of 30.0 to 39.9 (Chronic 08/19/15) Onychomycosis (Chronic) Pseudopolyp of ascending colon (Chronic) Pseudopolyposis of colon (Chronic 09/17/13) Renal cell carcinoma of left kidney (Resolved 09/27/15) Small bowel obstruction (Resolved) 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) Syncope (Inactive) Ulcerative colitis (Chronic) Ulcerative colitis (Chronic) Ventral hernia without obstruction or gangrene (Chronic 08/07/16) Surgical History Fractures (Resolved) History of neck surgery (Resolved ~2006) History of nephrectomy (~08/2015) History of third molar tooth extraction History of tonsillectomy (~1955) History of tonsillectomy (~1956) History of tonsillectomy (~1959) Status post colonoscopy Social History household members: significant other Smoking Status: Former smoker alcohol intake: never Smoking Status: Former smoker alcohol intake frequency: 0-2 drinks per day Alcohol type: other Substance Use Type: does not use Exam Narrative Exam Narrative: GENERAL: [70] year old patient appears stated age. Well- nourished, well-developed patient, in mild distress. HEAD: Atraumatic. Normocephalic. EYES:No conjunctival pallor. Pupils equal round and reactive. Extraocular motions intact. No scleral icterus. No injection or drainage. ENT: Nose without bleeding, purulent drainage. Throat without erythema, tonsillar hypertrophy or exudate. Airway patent. NECK: Trachea midline. Non tender CARDIOVASCULAR: Regular rate and rhythm without murmurs, gallops, or rubs. RESPIRATORY: Clear to auscultation. Breath sounds equal bilaterally. No wheezes, rales, or rhonchi. GASTROINTESTINAL: Abdomen soft, non-tender, nondistended. RECTAL: Patient refused EXTREMITIES: No edema or joint tenderness. BACK: Nontender without deformity or crepitance. No flank tenderness. NEURO: AOx3. SKIN: No rash or erythema of visible areas Initial Vital Signs Initial Vital Signs: Vital Signs Temperature 96.6 F L 03/23/20 18:16 Pulse Rate 78 03/23/20 18:16 Respiratory Rate 17 03/23/20 18:16 Blood Pressure 116/80 03/23/20 18:16 Pulse Oximetry 96 03/23/20 18:16 Course Orders Ordered: ED Orders 03/23/20 19:04 Complete Blood Count AUTO DIFF Stat Comprehensive Metabolic Panel Stat Partial Thromboplastin Time Stat Prothrombin Time INR Stat Vital Signs Vital signs: Vital Signs - 8 hr 03/23/20 18:16 03/23/20 19:04 03/23/20 19:30 Temperature 96.6 F L Pulse Rate 78 69 68 Respiratory Rate 17 20 22 Blood Pressure 116/80 Pulse Oximetry 96 96 95 03/23/20 19:31 03/23/20 20:00 Temperature Pulse Rate 68 64 Respiratory Rate 20 15 Blood Pressure 154/71 H 131/78 Pulse Oximetry 95 95 MDM - GI Bleed Lab Data Result diagrams: 03/23/20 19:04 03/23/20 19:04 Labs: Lab Results 03/23/20 03/23/20 03/23/20 Range/Units 19:04 19:04 19:04 WBC 8.0 (4.5-11.0) X10^3/uL RBC 4.55 (4.5-5.9) X10^6/uL Hgb 12.4 L (13.5-17.5) g/dL Hct 38.5 L (41-53) % MCV 84.7 (80-100) fL MCH 27.3 (26-34) PG MCHC 32.2 (30-36) % RDW 15.3 H (11.6-14.8) % Plt Count 229 (150-400) X10^3/uL Neut % (Auto) 76.9 H (50-75) % Lymph % (Auto) 13.2 L (25-40) % [place] % (Auto) 6.5 (3-14) % Eos % (Auto) 2.3 (2-4) % Baso % (Auto) 1.1 (0-2) % Neut # (Auto) 6200 (8970-3992) /uL Lymph # (Auto) 1100 (7315-0592) /uL [place] # (Auto) 500 (0-900) /uL Eos # (Auto) 200 (0-450) /uL Baso # (Auto) 100 (0-100) /uL PT 11.6 (10.1-12.7) SECONDS INR 1.0 (0.9-1.3) APTT 34 (26.4-36.2) SECONDS Sodium 139 (137-145) mmol/L Potassium 4.1 (3.4-5.1) mmol/L Chloride 100 (98-107) mmol/L Carbon Dioxide 36 H (22-32) mmol/L BUN 25 H (9-20) mg/dL Creatinine 1.33 H (0.66-1.25) mg/dL Estimated GFR 53.2 L (>60) mL/min BUN/Creatinine Ratio 18.8 (6-22) Glucose 93 (80-110) mg/dL Calcium 9.3 (8.4-10.2) mg/dL Total Bilirubin 0.3 (0.2-1.3) mg/dL AST 25 (17-59) IU/L ALT 19 (<50) IU/L Alkaline Phosphatase 80 (38-126) U/L Total Protein 7.6 (6.3-8.2) g/dL Albumin 4.1 (3.5-5.0) g/dL Globulin 3.5 (1.7-4.1) g/dL Albumin/Globulin Ratio 1.2 (1.0-2.8) MDM Narrative Medical decision making narrative: Patient with 1 episode of bright red blood per rectum. No pain, stable vitals, no use of blood thinners. Reassuring labs, observed for 3 hours and no passage of blood in the department. 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 Return precautions given, questions answered to his apparent satisfaction Discharge Plan Departure Patient Disposition: Home Clinical Impression: Bright red rectal bleeding Discharge Date/Time: 03/23/20 21:01 Instructions: Gastrointestinal Bleeding Activity Restrictions/Additional Instructions: 1. Drink plenty of fluids with frequent small sips. 2. For the next 24 hours a clear liquid diet is advised. After that please employ a B.R.A.T. diet which would include bananas, rice, apples, toast and other mild food items 3. Please take medications as directed. 4. Please follow-up with your GI doctor in the next 1-2 days. Call the office for an appointment. 5. Please return to the emergency Department for any worsening or persistent symptoms, such as increasing pain or fever. Prescriptions: No Action econazole 1 % cream 1 applictn TOP BID Qty: 30 RF: 0 fluticasone propionate 50 mcg/actuation spray,suspension 1 spray Intranasal BID PRN (Reason: Congestion) Qty: 18.2 RF: 1 famciclovir 250 mg tablet 250 mg PO BID PRN (Reason: herpes zoster) Qty: 30 RF: 1 methyl B12 1 tab PO RF: 0 fiber gummy PO Q OTHER DAY RF: 0 cholecalciferol (vitamin D3) 2,000 unit capsule 2,000 unit PO DAILY RF: 0 L-Glutamine 500 mg capsule 500 mg PO BID Qty: 180 RF: 0 prednisone 5 mg tablet 2.5 mg PO BID RF: 0 Probiotic 20 billion cell Capsule 2 cap PO BID RF: 0 magnesium 200 mg Tablet 200 mg PO DAILY RF: 0 turmeric 300 mg 600 mg PO DAILY RF: 0 Iron Complex 27 mg 1 tab PO DAILY RF: 0 mesalamine [Lialda] 1.2 gram Tablet,Delayed Release (Dr/Ec) 1.2 g PO BID RF: 0 levothyroxine 88 mcg Tablet 88 mcg PO 0600 Qty: 0 RF: 0 Referrals: Monica Collins DO [Primary Care Provider] -
[2020-03-23 19:04] VITALS: PULSE 69; RESP 20; O2SAT 96
--- NOTE | 2020-03-23 19:11 | PC.NURSE ---
Pt states that around 174 he had one episode of bright red blood in the toilet bowl. No reports of abd pain or n/v/d or constipation
[2020-03-23 19:12] LABS: Add Manual Diff / Slide Review NO; Basophils Absolute Auto 100 /uL (0-100); Basophils Percent Auto 1.1 % (0-2); Eosinophils Absolute Auto 200 /uL (0-450); Eosinophils Percent Auto 2.3 % (2-4); Hematocrit 38.5 % (41-53); Hemoglobin 12.4 g/dL (13.5-17.5); Lymphocytes Absolute Auto 1100 /uL (1100-4500); Lymphocytes Percent Auto 13.2 % (25-40); Mean Corpuscular HGB Conc 32.2 % (30-36); Mean Corpuscular Hemoglobin 27.3 PG (26-34); Mean Corpuscular Volume 84.7 fL (80-100); Monocytes Absolute Auto 500 /uL (0-900); Monocytes Percent Auto 6.5 % (3-14); Neutrophils Absolute Auto 6200 /uL (1500-7000); Neutrophils Percent Auto 76.9 % (50-75); Platelet Count 229 X10^3/uL (150-400); Red Blood Cell Count 4.55 X10^6/uL (4.5-5.9); Red Cell Distribution Width 15.3 % (11.6-14.8)
[2020-03-23 19:24] LABS: Alanine Aminotransferase 19 IU/L (<50); Albumin 4.1 g/dL (3.5-5.0); Albumin Globulin Ratio 1.2 (1.0-2.8); Alkaline Phosphatase 80 U/L (38-126); Aspartate Aminotransferase 25 IU/L (17-59); BUN Creatinine Ratio 18.8 (6-22); Bilirubin Total 0.3 mg/dL (0.2-1.3); Blood Urea Nitrogen 25 mg/dL (9-20); Calcium 9.3 mg/dL (8.4-10.2); Carbon Dioxide 36 mmol/L (22-32); Chloride 100 mmol/L (98-107); Estimated Glomerular Filt Rate 53.2 mL/min (>60); Globulin 3.5 g/dL (1.7-4.1); Glucose 93 mg/dL (80-110); HEMOLYSIS < 15 (0-50); Potassium 4.1 mmol/L (3.4-5.1); Prothrombin Time 11.6 SECONDS (10.1-12.7); Sodium 139 mmol/L (137-145); Total Protein 7.6 g/dL (6.3-8.2)
[2020-03-23 19:26] LABS: PTT Partial Thromboplastin Tim 34 SECONDS (26.4-36.2)
[2020-03-23 19:30] VITALS: PULSE 68; RESP 22; O2SAT 95
[2020-03-23 19:31] VITALS: BP 154/71; PULSE 68; RESP 20; O2SAT 95
[2020-03-23 20:00] VITALS: BP 131/78; PULSE 64; RESP 15; O2SAT 95
== END 2020-03-23 21:01 | disposition home or self-care (01) ==
PROVIDERS: Emergency Medicine; Emergency Provider Emergency Medicine; PCP Family Medicine
DX: K92.1 Melena (principal); K51.90 Ulcerative colitis, unspecified, without complications
CPT/HCPCS: 36415; 80053; 85025; 85610; 85730; 99283

== ENCOUNTER 2020-03-24 07:40 | Observation (INO) | payer MEDICARE, SELFPAY ==
[2019-04-01 11:58] VITALS: BMI 36.1
[2020-03-24] VITALS (12 sets, daily range): BP systolic 89–167; BP diastolic 58–102; PULSE 59–72; RESP 16–23; TEMP 36.1–36.8; O2SAT 94–99; BMI 36.6; BMI 36.8
--- NOTE | 2020-03-24 08:06 | PC.NURSE ---
Pt feeling dizzy this morning,denies SOB or pain. Pt has had 3 episodes this morning of blood in stool.
[2020-03-24 08:14] LABS: Add Manual Diff / Slide Review NO; Basophils Absolute Auto 100 /uL (0-100); Eosinophils Absolute Auto 200 /uL (0-450); Eosinophils Percent Auto 2.5 % (2-4); Hematocrit 36.9 % (41-53); Hemoglobin 12.1 g/dL (13.5-17.5); Lymphocytes Absolute Auto 1700 /uL (1100-4500); Lymphocytes Percent Auto 23.8 % (25-40); Mean Corpuscular HGB Conc 32.7 % (30-36); Mean Corpuscular Hemoglobin 27.5 PG (26-34); Mean Corpuscular Volume 84.2 fL (80-100); Monocytes Absolute Auto 600 /uL (0-900); Monocytes Percent Auto 7.8 % (3-14); Neutrophils Absolute Auto 4600 /uL (1500-7000); Neutrophils Percent Auto 64.9 % (50-75); Platelet Count 229 X10^3/uL (150-400); Red Blood Cell Count 4.38 X10^6/uL (4.5-5.9); Red Cell Distribution Width 15.2 % (11.6-14.8); White Blood Cell Count 7.1 X10^3/uL (4.5-11.0)
[2020-03-24 08:18] LABS: PTT Partial Thromboplastin Tim 33 SECONDS (26.4-36.2)
[2020-03-24 08:19] LABS: Alanine Aminotransferase 17 IU/L (<50); Albumin 3.6 g/dL (3.5-5.0); Albumin Globulin Ratio 1.1 (1.0-2.8); Alkaline Phosphatase 78 U/L (38-126); Aspartate Aminotransferase 25 IU/L (17-59); BUN Creatinine Ratio 16.7 (6-22); Bilirubin Total 0.5 mg/dL (0.2-1.3); Blood Urea Nitrogen 20 mg/dL (9-20); Calcium 8.8 mg/dL (8.4-10.2); Carbon Dioxide 35 mmol/L (22-32); Chloride 102 mmol/L (98-107); Estimated Glomerular Filt Rate 59.9 mL/min (>60); Globulin 3.4 g/dL (1.7-4.1); Glucose 87 mg/dL (80-110); HEMOLYSIS < 15 (0-50); Potassium 3.7 mmol/L (3.4-5.1); Sodium 138 mmol/L (137-145)
[2020-03-24] MEDS: SODIUM CHLORIDE 0.9% 1,000 ML 1000 ML IV (08:39)
[2020-03-24] MEDS: HYDROCORTISONE 100 MG/2 ML VIAL IV (08:39)
--- NOTE | 2020-03-24 08:39 | ED.GIBLEED ---
HPI - GI Bleed General Chief complaint: GI Bleed Stated complaint: blood in stool Time Seen by Provider: 03/24/20 08:00 Source: patient Mode of arrival: Wheelchair Limitations: no limitations History of Present Illness HPI Narrative: 70-year-old gentleman with a history of hypothyroidism, adrenal insufficiency and ulcerative colitis followed by gastroenterology at [facility]. Seen last night with a minor amount of bright red blood per rectum. Otherwise asymptomatic. Blood work was reassuring and he remains stable to the emergency department. He was felt to be safe for home discharge and outpatient follow-up was recommended with his fox farmer. After getting home he has since had a number of episodes of bright red blood and clots with minimal stool and is feeling increasing fatigue. He states that he is not actually short of breath but feels that he is simply not getting enough air. States that his ulcerative colitis has been under good control recently with current medications, no increase in diarrhea and no abdominal cramping. No nausea, vomiting, abdominal pain, fevers, palpitations, chest pain, cough. No lower extremity edema. Related Data Home Medications Medication Instructions Recorded Confirmed cholecalciferol (vitamin D3) 50 2,000 unit PO DAILY 04/23/18 01/28/20 mcg (2,000 unit) capsule Probiotic 2 cap PO BID 07/23/18 01/28/20 magnesium 200 mg PO DAILY 07/23/18 01/28/20 turmeric 600 mg PO DAILY 07/23/18 01/28/20 Iron Complex 1 tab PO DAILY 09/10/18 01/28/20 mesalamine [Lialda] 1.2 g PO BID 09/30/18 01/28/20 prednisone 5 mg tablet 2.5 mg PO BID tab 07/01/19 01/28/20 fiber gummy PO Q OTHER DAY 02/02/20 methyl B12 PO 02/02/20 Previous Rx's Medication Instructions Recorded levothyroxine 88 mcg PO 0600 #0 tab 10/02/18 glutamine 500 mg capsule 500 mg PO BID #180 cap 10/08/18 econazole 1 % topical cream 1 applictn TOP BID #30 gram 08/04/19 fluticasone propionate 50 1 spray INTRANASAL BID PRN #18.2 ml 10/04/19 mcg/actuation nasal spray,suspension famciclovir 250 mg tablet 250 mg PO BID PRN #30 tab 01/05/20 Allergies Allergy/AdvReac Type Severity Reaction Status Date / Time cefazolin [CEFAZOLIN] Allergy Severe rash Verified 03/24/20 08:00 levofloxacin [From LEVAQUIN] Allergy Mild Verified 03/24/20 08:00 morphine [MORPHINE] Allergy Mild STOPPED Verified 03/24/20 08:00 BREATHING. Review of Systems Review of Systems Narrative: Remainder of review of systems including constitutional, ENT, cardiovascular, respiratory, GI, , musculoskeletal, skin, neurologic and psychiatric systems reviewed and are unremarkable except as noted in HPI. Patient History Medical History Acquired hypothyroidism (Chronic) Acute dehydration (Resolved) Anemia (Chronic 10/13/13) C. 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) Influenza A (Inactive) Intractable diarrhea (Resolved) Obesity with body mass index (BMI) of 30.0 to 39.9 (Chronic 08/19/15) Onychomycosis (Chronic) Pseudopolyp of ascending colon (Chronic) Pseudopolyposis of colon (Chronic 09/17/13) Renal cell carcinoma of left kidney (Resolved 09/27/15) Small bowel obstruction (Resolved) 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) Syncope (Inactive) Ulcerative colitis (Chronic) Ulcerative colitis (Chronic) Ventral hernia without obstruction or gangrene (Chronic 08/07/16) Surgical History Fractures (Resolved) History of neck surgery (Resolved ~2006) History of nephrectomy (~08/2015) History of third molar tooth extraction History of tonsillectomy (~1955) History of tonsillectomy (~1956) History of tonsillectomy (~1959) Status post colonoscopy Social History household members: significant other Smoking Status: Former smoker alcohol intake: never Smoking Status: Former smoker alcohol intake frequency: holidays/special occasions only Alcohol type: other Substance Use Type: does not use Exam Narrative Exam Narrative: General: Very pale and fatigued appearing but Able to give a complete and coherent history. HEENT: Moist mucous membranes, normal sclera with reactive pupils, Neck: No JVD, supple Respiratory: Lungs are clear to auscultation, no wheezing no rales no rhonchi. Full and symmetrical air movement Cardiac: Regular rate and rhythm, 3/6 systolic ejection murmur, no bruits Abdomen: Soft nontender good bowel tones, no flank pain Skin: Pale but Warm and dry, no rashes Neurologic: Globally weak, Grossly neurologically intact with no obvious asymmetries or abnormalities Extremities: No trauma, well perfused Psych: Cooperative, appropriate insight and affect Initial Vital Signs Initial Vital Signs: Vital Signs Temperature 98.2 F 03/24/20 07:45 Pulse Rate 72 03/24/20 07:45 Respiratory Rate 23 03/24/20 07:45 Blood Pressure 94/68 03/24/20 07:45 Pulse Oximetry 95 03/24/20 07:45 Course Orders Ordered: ED Orders 03/24/20 07:50 Complete Blood Count AUTO DIFF Stat Comprehensive Metabolic Panel Stat Partial Thromboplastin Time Stat Prothrombin Time INR Stat Type and Screen Stat 03/24/20 08:03 EKG-12 Lead Stat 03/24/20 09:35 COVID19 -ED/INPAT/OR/L&D Stat Discontinued Medications Hydrocortisone (Solu-Cortef) 100 mg IV NOW ONE Stop: 03/24/20 08:34 Last Admin: 03/24/20 08:39 Dose: 100 mg Documented by: CORBIN Sodium Chloride (Normal Saline 0.9%) 1,000 mls @ 1,000 mls/hr IV BOLUS ONE Stop: 03/24/20 09:32 Last Infusion: 03/24/20 09:48 Dose: 0 mls/hr Documented by: Admin: 03/24/20 08:39 Dose: 1,000 mls/hr Documented by: CORBIN Vital Signs Vital signs: Vital Signs - 8 hr 03/24/20 07:45 03/24/20 08:30 03/24/20 09:00 Temperature 98.2 F Pulse Rate 72 66 60 Respiratory Rate 23 Blood Pressure 94/68 89/58 L 141/68 H Pulse Oximetry 95 MDM - GI Bleed Medical Records Attestation: I reviewed the patient's medical records. Lab Data Attestation: I reviewed the patient's lab results. Lab results narrative: H&H at 7:00 p.m. last night was 12.4 and 38.5 Result diagrams: 03/24/20 07:50 03/24/20 07:50 Labs: Lab Results 03/24/20 03/24/20 03/24/20 Range/Units 07:50 07:50 07:50 WBC 7.1 (4.5-11.0) X10^3/uL RBC 4.38 L (4.5-5.9) X10^6/uL Hgb 12.1 L (13.5-17.5) g/dL Hct 36.9 L (41-53) % MCV 84.2 (80-100) fL MCH 27.5 (26-34) PG MCHC 32.7 (30-36) % RDW 15.2 H (11.6-14.8) % Plt Count 229 (150-400) X10^3/uL Neut % (Auto) 64.9 (50-75) % Lymph % (Auto) 23.8 L (25-40) % [place] % (Auto) 7.8 (3-14) % Eos % (Auto) 2.5 (2-4) % Baso % (Auto) 1.0 (0-2) % Neut # (Auto) 4600 (2290-5776) /uL Lymph # (Auto) 1700 (1683-7535) /uL [place] # (Auto) 600 (0-900) /uL Eos # (Auto) 200 (0-450) /uL Baso # (Auto) 100 (0-100) /uL PT 12.0 (10.1-12.7) SECONDS INR 1.0 (0.9-1.3) APTT 33 (26.4-36.2) SECONDS Sodium 138 (137-145) mmol/L Potassium 3.7 (3.4-5.1) mmol/L Chloride 102 (98-107) mmol/L Carbon Dioxide 35 H (22-32) mmol/L BUN 20 (9-20) mg/dL Creatinine 1.20 (0.66-1.25) mg/dL Estimated GFR 59.9 L (>60) mL/min BUN/Creatinine Ratio 16.7 (6-22) Glucose 87 (80-110) mg/dL Calcium 8.8 (8.4-10.2) mg/dL Total Bilirubin 0.5 (0.2-1.3) mg/dL AST 25 (17-59) IU/L ALT 17 (<50) IU/L Alkaline Phosphatase 78 (38-126) U/L Total Protein 7.0 (6.3-8.2) g/dL Albumin 3.6 (3.5-5.0) g/dL Globulin 3.4 (1.7-4.1) g/dL Albumin/Globulin Ratio 1.1 (1.0-2.8) Blood Type Antibody Screen 03/24/20 Range/Units 07:50 WBC (4.5-11.0) X10^3/uL RBC (4.5-5.9) X10^6/uL Hgb (13.5-17.5) g/dL Hct (41-53) % MCV (80-100) fL MCH (26-34) PG MCHC (30-36) % RDW (11.6-14.8) % Plt Count (150-400) X10^3/uL Neut % (Auto) (50-75) % Lymph % (Auto) (25-40) % [place] % (Auto) (3-14) % Eos % (Auto) (2-4) % Baso % (Auto) (0-2) % Neut # (Auto) (6057-0928) /uL Lymph # (Auto) (1601-2871) /uL [place] # (Auto) (0-900) /uL Eos # (Auto) (0-450) /uL Baso # (Auto) (0-100) /uL PT (10.1-12.7) SECONDS INR (0.9-1.3) APTT (26.4-36.2) SECONDS Sodium (137-145) mmol/L Potassium (3.4-5.1) mmol/L Chloride (98-107) mmol/L Carbon Dioxide (22-32) mmol/L BUN (9-20) mg/dL Creatinine (0.66-1.25) mg/dL Estimated GFR (>60) mL/min BUN/Creatinine Ratio (6-22) Glucose (80-110) mg/dL Calcium (8.4-10.2) mg/dL Total Bilirubin (0.2-1.3) mg/dL AST (17-59) IU/L ALT (<50) IU/L Alkaline Phosphatase (38-126) U/L Total Protein (6.3-8.2) g/dL Albumin (3.5-5.0) g/dL Globulin (1.7-4.1) g/dL Albumin/Globulin Ratio (1.0-2.8) Blood Type O Positive Antibody Screen Negative ECG Data Attestation: I personally reviewed and interpreted this ECG as follows: Interpretation: Sinus rhythm at 71 Normal intervals, normal axis Nonspecific ST T wave abnormalities without acute ischemia MDM Narrative Medical decision making narrative: 70-year-old gentleman with a history of ulcerative colitis presents with painless rectal bleeding. He has had multiple colonoscopies at [facility] with polyps and has known diverticuli. Presented initially with the single episode of bleeding in feeling well last night, over the course of the evening he has had increasing bleeding his hematocrit is dropping he is feeling dizzy week fatigued and as if he ?is getting enough air?. He is mildly hypotensive on arrival and fluid resuscitation is initiated. Will anticipate hospital admission. With his history of adrenal insufficiency will give him a stress dose of hydrocortisone. Covid testing will be done in anticipation of hospital admission. Will talk with general surgery regarding need for possible colonoscopy if bleeding worsens. 9:[address] Sierra, hospitalist and Dr. Lomeli, general surgeon. Dr. Sierra will admit the patient Dr. Lomeli will consult. Will plan on repeating H&H at 10am. Findings reviewed with patient who is amenable to admission Discharge Plan Departure Patient Disposition: Admitted As Inpatient Clinical Impression: Bright red rectal bleeding Ulcerative colitis Qualifiers: Ulcerative colitis location: unspecified ulcerative colitis location Digestive disease complication type: without complication Qualified Code(s): K51.90 - Ulcerative colitis, unspecified, without complications Discharge Date/Time: 03/24/20 10:21 Referrals: Monica Collins DO [Primary Care Provider] - Admit Date/Time: 03/24/20 09:27 Admit Provider: Linda Sierra
[2020-03-24 10:50] LABS: COVID19 -Nasal RAPID Negative (Negative)
[2020-03-24] MEDS: SODIUM CHLORIDE 0.9% 1,000 ML 100 ML IV (11:29)
[2020-03-24 11:45] LABS: Hematocrit 35.7 % (41-53); Hemoglobin 11.6 g/dL (13.5-17.5)
[2020-03-24 12:00] LABS: C-Reactive Protein Quant 1.6 mg/dL (<1.0)
--- NOTE | 2020-03-24 13:56 | PC.ADMIT ---
Addendum entered by Mili Nassar R.N. 03/24/20 15:23: PATIENT HAD APPROX 150CC'S BRIGHT RED BLOOD. Original Note: [email or web address] Admission Note: The patient,Aleksandar Bay,70 y/o, was given written information regarding hospital policies, unit procedures and contact persons. Patient's smoking status: Former smoker. Vital Signs - 8 hr 03/24/20 07:45 03/24/20 08:30 03/24/20 09:00 Temperature 98.2 F Pulse Rate 72 66 60 Respiratory Rate 23 Blood Pressure 94/68 89/58 L 141/68 H Pulse Oximetry 95 03/24/20 10:15 03/24/20 10:41 03/24/20 11:35 Temperature 97.0 F L Pulse Rate 59 L 68 Respiratory Rate 22 Blood Pressure 167/102 H 136/73 Pulse Oximetry 97 95 03/24/20 12:00 Temperature 97.0 F L Pulse Rate 62 Respiratory Rate 20 Blood Pressure 133/70 Pulse Oximetry 95 PATIENT ADMITTED TO 222. HAD ONE BLOODY STOOL. DR. PEREIRA IN TO SEE PATIENT, STATES PATIENT DOES NOT WANT A SCOPE AT THIS TIME. PATIENT ALERT AND ORIENTED, MAKES NEEDS KNOWN.
--- NOTE | 2020-03-24 13:59 | PM.CN ---
History of Present Illness Consult details Date Patient Seen: 03/24/20 Time Patient Seen: 12:30 Chief complaint: blood in stool Reason for consult: rebtal bleeding Requesting provider: Linda Sierra Narrative: This is a 70-year-old gentleman with a history of hypothyroidism, adrenal insufficiency and ulcerative colitis followed by gastroenterology at [facility]. He came into the ER two nights ago with complaint of bright red rectal bleeding. He was discharged with plans for outpatient follow-up with his mine engineering manager. After getting home he had several more episodes of bright red blood and clots with minimal stool and is feeling increasing fatigue. He returned to the ER today complaining of shortness of breath. He believes that his ulcerative colitis has been under good control recently. He has been on Lealda for several years. He denies nausea, vomiting, abdominal pain, fevers, palpitations, chest pain, cough. Since admission to the hospital he has passed a small amount of dark blood and stool. He has not passed any significant amount of bright red blood since last night. He say she feels pretty well. His last colonoscopy was done in August 2018 and he was due for another one this year, but it was postponed because of COVID. He was recently planning to reschedule his colonoscopy at [facility]. ROS: Thirteen system review is otherwise negative other than as mentioned below and in HPI. PE: GENERAL: Well groomed and cooperative. Appears stated age. Answers questions promptly and appropriately. Vital signs noted. HENT: Normocephalic, atraumatic. Hearing intact. EYES: Conjunctiva pink, sclera white, no periorbital swelling. CARDIOVASCULAR: Regular rate. No pedal edema. RESPIRATORY: Non-tachypneic, breathing comfortably on room air. GASTROINTESTINAL: Abdomen soft, rounded, nontender, and non-distended Perianal: moderate external hemorrhoids without thrombosis; moderate blood staining; no stool present [place]: nontender; no masses; normal tone; minimal blood present, no copious bleeding GENITALURINARY: No flank tenderness. MUSCULOSKELETAL: Equal tone and mass bilaterally. SKIN: Warm, dry, soft, appropriate color for ethnicity. No other lesions, rashes, or wounds. NEURO: Alert and Oriented X 3. No gross sensory deficits, or cognitive issues. PSYCH: Appropriate affect and mood. Meds Home Medications and Allergies Home Medications Medication Instructions Recorded Confirmed Type cholecalciferol (vitamin D3) 50 2,000 unit PO DAILY 04/23/18 03/24/20 History mcg (2,000 unit) capsule Probiotic 1 cap PO DAILY 07/23/18 03/24/20 History magnesium 200 mg PO WEEKLY 07/23/18 03/24/20 History turmeric 600 mg PO DAILY 07/23/18 03/24/20 History Iron Complex 1 tab PO Q OTHER DAY 09/10/18 03/24/20 History mesalamine [Lialda] 1.2 g PO BID 09/30/18 03/24/20 History prednisone 5 mg tablet 2.5 mg PO BID tab 07/01/19 03/24/20 History fluticasone propionate 50 1 spray INTRANASAL BID PRN #18.2 ml 10/04/19 03/24/20 Rx mcg/actuation nasal spray,suspension famciclovir 250 mg tablet 250 mg PO BID PRN #30 tab 01/05/20 03/24/20 Rx methyl B12 1,000 mcg PO WEEKLY 02/02/20 03/24/20 History econazole 1 applictn TOP BID PRN 03/24/20 03/24/20 History glutamine [L-Glutamine] 500 mg PO BID PRN 03/24/20 03/24/20 History levothyroxine [Euthyrox] 88 mcg PO DAILY 03/24/20 03/24/20 History Allergies Allergy/AdvReac Type Severity Reaction Status Date / Time cefazolin [CEFAZOLIN] Allergy Severe rash Verified 03/24/20 08:00 levofloxacin [From LEVAQUIN] Allergy Mild Verified 03/24/20 08:00 morphine [MORPHINE] Allergy Mild STOPPED Verified 03/24/20 08:00 BREATHING. Exam Vital Signs (past 8 hours): - 03/24/20 07:45 03/24/20 08:30 03/24/20 09:00 Temperature 98.2 F Pulse Rate 72 66 60 Respiratory Rate 23 Blood Pressure 94/68 89/58 L 141/68 H Pulse Oximetry 95 03/24/20 10:15 03/24/20 10:41 03/24/20 11:35 Temperature 97.0 F L Pulse Rate 59 L 68 Respiratory Rate 22 Blood Pressure 167/102 H 136/73 Pulse Oximetry 97 95 03/24/20 12:00 Temperature 97.0 F L Pulse Rate 62 Respiratory Rate 20 Blood Pressure 133/70 Pulse Oximetry 95 Oxygen Delivery Method Room Air Oxygen Flow Rate 0 Objective Labs Result Diagrams: 03/24/20 11:36 03/24/20 07:50 Labs: Laboratory Results - last 24 hr 03/24/20 03/24/20 03/24/20 07:50 07:50 07:50 WBC 7.1 RBC 4.38 L Hgb 12.1 L Hct 36.9 L MCV 84.2 MCH 27.5 MCHC 32.7 RDW 15.2 H Plt Count 229 Neut % (Auto) 64.9 Lymph % (Auto) 23.8 L [place] % (Auto) 7.8 Eos % (Auto) 2.5 Baso % (Auto) 1.0 Neut # (Auto) 4600 Lymph # (Auto) 1700 [place] # (Auto) 600 Eos # (Auto) 200 Baso # (Auto) 100 PT 12.0 INR 1.0 APTT 33 Sodium 138 Potassium 3.7 Chloride 102 Carbon Dioxide 35 H BUN 20 Creatinine 1.20 Estimated GFR 59.9 L BUN/Creatinine Ratio 16.7 Glucose 87 Calcium 8.8 Total Bilirubin 0.5 AST 25 ALT 17 Alkaline Phosphatase 78 C-Reactive Protein Total Protein 7.0 Albumin 3.6 Globulin 3.4 Albumin/Globulin Ratio 1.1 COVID-19 PCR Blood Type Antibody Screen 03/24/20 03/24/20 03/24/20 07:50 09:35 11:36 WBC RBC Hgb 11.6 L Hct 35.7 L MCV MCH MCHC RDW Plt Count Neut % (Auto) Lymph % (Auto) [place] % (Auto) Eos % (Auto) Baso % (Auto) Neut # (Auto) Lymph # (Auto) [place] # (Auto) Eos # (Auto) Baso # (Auto) PT INR APTT Sodium Potassium Chloride Carbon Dioxide BUN Creatinine Estimated GFR BUN/Creatinine Ratio Glucose Calcium Total Bilirubin AST ALT Alkaline Phosphatase C-Reactive Protein Total Protein Albumin Globulin Albumin/Globulin Ratio COVID-19 PCR Negative Blood Type O Positive Antibody Screen Negative 03/24/20 11:36 WBC RBC Hgb Hct MCV MCH MCHC RDW Plt Count Neut % (Auto) Lymph % (Auto) [place] % (Auto) Eos % (Auto) Baso % (Auto) Neut # (Auto) Lymph # (Auto) [place] # (Auto) Eos # (Auto) Baso # (Auto) PT INR APTT Sodium Potassium Chloride Carbon Dioxide BUN Creatinine Estimated GFR BUN/Creatinine Ratio Glucose Calcium Total Bilirubin AST ALT Alkaline Phosphatase C-Reactive Protein 1.6 H Total Protein Albumin Globulin Albumin/Globulin Ratio COVID-19 PCR Blood Type Antibody Screen Assessment & Plan Assessment and plan (1) Bright red rectal bleeding: Status: Acute (2) Chronic adrenal insufficiency: Status: Chronic (3) Acquired hypothyroidism: Status: Chronic (4) Ulcerative colitis: Problem details: Multiple episodes of c. diff collitis. C-scope recommended in -08/2014 Last cscope 06/2012, repeat due in 1-2 years. Has seen GI in 07/2013. Status: Chronic (5) Chronic renal failure, stage 2 (mild): Status: Chronic (6) Anemia: Status: Chronic (7) Cytomegaloviral colitis: Problem details: Pseudopolyps on 06/2012 biopsy immunohisto staining positive Status: Chronic (8) Pseudopolyposis of colon: Status: Chronic (9) Obesity with body mass index (BMI) of 30.0 to 39.9: Status: Chronic Assessment & Plan narrative: This is a 70-year-old man with a history of 13 years of ulcerative colitis. He is followed by mine engineering manager at [facility], and was most recently scoped in August of 2018. He has been maintained on Lialda. He denies any symptoms other than the rectal bleeding. There is no history of diverticulosis mentioned on his colonoscopy notes her prior imaging studies, but the patient believes that he was at 1 point told he had diverticulosis. At this point since his bleeding has slowed down, he is inclined to wait until after he is discharged and plan on an elective colonoscopy with his mine engineering manager at [facility]. I think this is a reasonable plan, so long as his bleeding is not life-threatening. If he decides he would like a scope, please contact the surgeon on-call. At this point I would advance his diet to clears, and follow his stool output and hemoglobin levels. It may be reasonable to go ahead and treat him for a colitis flare, as as the most likely culprit. Consider contacting his mine engineering manager at [facility]. He would like his primary doctor, will home contacted to let her know what is going on with him. I will carbon copy my note to her. COVID-19 COVID-19 status: Negative Result date/Date tested (Pos, Neg/Pending): 03/24/20 Time Spent With Patient Time with patient: Greater than 35 minutes
[2020-03-24 15:15] LABS: Appearance Urine UA CLEAR; Bacteria Urine None Seen; Bilirubin Urine UA NEGATIVE (NEGATIVE); Color Urine UA YELLOW; Glucose Urine UA NEGATIVE (Negative); Ketones Urine UA NEGATIVE (NEGATIVE); Leukocyte Esterase Urine UA NEGATIVE (NEGATIVE); Nitrite Urine UA NEGATIVE (Negative); Occult Blood Urine UA NEGATIVE (Negative); Protein Urine UA NEGATIVE (Negative); Urobilinogen Urine UA 0.2 E.U./dL (0.2)
[2020-03-24 15:43] LABS: Amorphous Sediment Urine 1+; Culture Indicated Urine Cult Not Indicated; RBC Urine 0-1/HPF (0-5/HPF); WBC Urine 0-1/HPF (0-5/HPF)
--- NOTE | 2020-03-24 15:49 | DIET.PN ---
Dietary Progress Note Assessment: 70y M admitted for blood in stool found to be bleeding diverticula and not ulcerative colitis flare. Pt reports working c GI doc and PCP Dennis to manage UC and has not had recent flare, has had UC for 13y. Pt is working on trying low sodium, Mediterranean diet to manage UC with good success so far along c medications. 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 Pt currently on clear liquid diet. Pt is interested in being more fit and losing weight and mentioned he uses a shopping cart when walking around grocery store r/t balance worries. HT: 182.8cm WT: 123kg BMI: 36.8 Labs: RBC 4.38 L, hgb 11.6 L, Hct 35.7 L, CRP 1.6 H Nutrition Diagnosis: acute blood loss anemia r/t low fiber diet aeb pt has bleeding diverticula, pt spends significant time on low residue diet when in UC flare, pt reports trying to follow Mediterranean diet to manage UC and diverticulosis. Interventions: 1. Encouraged pts intentions at weight loss and Mediterranean diet to manage UC. 2. Assisted pt c hospital menu, if diet advances before d/c, helped pt to identify items which would be appropriate. Kitchen serves wild salmon and cooks with olive oil which are indicated for his health. Diet Order: Clears EER: increase [id number], Mediterranean Diet Monitoring/Evaluations: as needed, happy to follow pt OP for weight management
--- NOTE | 2020-03-24 17:26 | PM.HP.1 ---
History of Present Illness History of Present Illness Date Patient Seen: 03/24/20 Chief complaint: blood in stool Narrative: Aleksandar Bay is a 70-year-old male with past medical history significant for ulcerative colitis, adrenal insufficiency on glucocorticoids, and hypothyroidism who presented to the ED for recurrent bright red blood per rectum. He was previously seen in the ED yesterday for bright red blood per rectum. He remained asymptomatic and hemodynamically stable with reassuring blood counts and was discharged home with outpatient follow-up with his oven operator automatic at [facility]. The patient returned for several episodes of bright red blood per rectum now symptomatic with fatigue. The patient has not had a flare of his ulcerative colitis in at least 4 months. He reports his last flare of ulcerative colitis lasted a day and half and resolved on its own. He has been on mesalamine 1.2 mg twice daily and prednisone 2.5 mg twice daily. He has no signs of infection or inflammation and denies abdominal pain, diarrhea, fevers, chills, nausea or vomiting. He currently denies fatigue, lightheadedness or dizziness, shortness of breath, or chest pain. His ESR was normal at 15 and CRP essentially normal at 1.6 (corrected for age is 1.4). PCP Dr. Collins. Patient History Medical History Acquired hypothyroidism (Chronic) Acute dehydration (Resolved) Anemia (Chronic 10/13/13) C. 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) Influenza A (Inactive) Intractable diarrhea (Resolved) Obesity with body mass index (BMI) of 30.0 to 39.9 (Chronic 08/19/15) Onychomycosis (Chronic) Pseudopolyp of ascending colon (Chronic) Pseudopolyposis of colon (Chronic 09/17/13) Renal cell carcinoma of left kidney (Resolved 09/27/15) Small bowel obstruction (Resolved) 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) Syncope (Inactive) Ulcerative colitis (Chronic) Ulcerative colitis (Chronic) Ventral hernia without obstruction or gangrene (Chronic 08/07/16) Surgical History Fractures (Resolved) History of neck surgery (Resolved ~2006) History of nephrectomy (~08/2015) History of third molar tooth extraction History of tonsillectomy (~1955) History of tonsillectomy (~1956) History of tonsillectomy (~1959) Status post colonoscopy Family & Social History Family History (Updated 03/24/20 @ 18:25 by Linda Sierra DO) Mother Congestive heart failure Father Liver failure Alzheimer's dementia Social History: household members significant other Prior Living Arrangements House Safety & Behavioral: Feels Safe in Current Yes Environment Been Physically Hurt or No Threatened By a Person Suicidal Ideation Description None Suicide Plan Description No Plan Tobacco & Substance use: Smoking Status Former smoker, 12 cigars/day x 1.5 years, quit 1995 alcohol intake none alcohol intake frequency holiday/special occasion Substance Use Type does not use Patient has been for 48 years. He has son and daughter who are both healthy. 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 Meds Home Medications and Allergies Home Medications Medication Instructions Recorded Confirmed Type cholecalciferol (vitamin D3) 50 2,000 unit PO DAILY 04/23/18 03/24/20 History mcg (2,000 unit) capsule Probiotic 1 cap PO DAILY 07/23/18 03/24/20 History magnesium 200 mg PO WEEKLY 07/23/18 03/24/20 History turmeric 600 mg PO DAILY 07/23/18 03/24/20 History Iron Complex 1 tab PO Q OTHER DAY 09/10/18 03/24/20 History mesalamine [Lialda] 1.2 g PO BID 09/30/18 03/24/20 History prednisone 5 mg tablet 2.5 mg PO BID tab 07/01/19 03/24/20 History fluticasone propionate 50 1 spray INTRANASAL BID PRN #18.2 ml 10/04/19 03/24/20 Rx mcg/actuation nasal spray,suspension famciclovir 250 mg tablet 250 mg PO BID PRN #30 tab 01/05/20 03/24/20 Rx methyl B12 1,000 mcg PO WEEKLY 02/02/20 03/24/20 History econazole 1 applictn TOP BID PRN 03/24/20 03/24/20 History glutamine [L-Glutamine] 500 mg PO BID PRN 03/24/20 03/24/20 History levothyroxine [Euthyrox] 88 mcg PO DAILY 03/24/20 03/24/20 History Allergies Allergy/AdvReac Type Severity Reaction Status Date / Time cefazolin [CEFAZOLIN] Allergy Severe rash Verified 03/24/20 08:00 levofloxacin [From LEVAQUIN] Allergy Mild Verified 03/24/20 08:00 morphine [MORPHINE] Allergy Mild STOPPED Verified 03/24/20 08:00 BREATHING. Review of Systems Review of Systems Narrative: A 10 system comprehensive review of systems was conducted with the patient and found to be negative except as above in the History of Present Illness. Exam Vital Signs (past 8 hours): - 03/24/20 10:15 03/24/20 10:41 03/24/20 11:35 Temperature 97.0 F L Pulse Rate 59 L 68 Respiratory Rate 22 Blood Pressure 167/102 H 136/73 Pulse Oximetry 97 95 03/24/20 12:00 03/24/20 15:04 03/24/20 15:38 Temperature 97.0 F L 97.3 F L Pulse Rate 62 64 Respiratory Rate 20 16 Blood Pressure 133/70 125/72 Pulse Oximetry 95 95 95 Oxygen Delivery Method Room Air Oxygen Flow Rate 0 Narrative Exam Narrative: General: Elderly male sitting in bed and in no acute distress, well-developed, well-nourished, appropriately interactive. HEENT: Normocephalic, atraumatic. External ears without defect. Pupils equal, round, and reactive to light. Anicteric sclerae, moist conjunctivae, and no lid lag. Oropharynx free of erythema and cobble stoning with moist mucosa. No ulcerations in mouth. Neck: Supple with full range of motion. No jugular venous distension. No lymphadenopathy or thyromegaly. Cardiovascular: Regular rate and rhythm without murmurs, rubs, or gallops appreciated. Pulmonary: Clear to auscultation bilaterally without crackles, wheezes, or rhonchi. Normal respiratory effort with no use of accessory muscles. Abdomen: Soft, obese, bowel sounds present, nontender, nondistended. Extremities: No clubbing or cyanosis. Mild pitting edema to ankles bilaterally. Skin: Normal temperature, turgor, and texture; no rash, ulcers, or subcutaneous nodules appreciated. Neurological: Cranial nerves grossly intact. Psychiatric: Normal mood and affect. Alert and oriented to person, place, and time. Objective Labs Result Diagrams: 03/24/20 11:36 03/24/20 07:50 Labs: Laboratory Results - last 24 hr 03/24/20 03/24/20 03/24/20 07:50 07:50 07:50 WBC 7.1 RBC 4.38 L Hgb 12.1 L Hct 36.9 L MCV 84.2 MCH 27.5 MCHC 32.7 RDW 15.2 H Plt Count 229 Neut % (Auto) 64.9 Lymph % (Auto) 23.8 L [place] % (Auto) 7.8 Eos % (Auto) 2.5 Baso % (Auto) 1.0 Neut # (Auto) 4600 Lymph # (Auto) 1700 [place] # (Auto) 600 Eos # (Auto) 200 Baso # (Auto) 100 PT 12.0 INR 1.0 APTT 33 Sodium 138 Potassium 3.7 Chloride 102 Carbon Dioxide 35 H BUN 20 Creatinine 1.20 Estimated GFR 59.9 L BUN/Creatinine Ratio 16.7 Glucose 87 Calcium 8.8 Total Bilirubin 0.5 AST 25 ALT 17 Alkaline Phosphatase 78 C-Reactive Protein Total Protein 7.0 Albumin 3.6 Globulin 3.4 Albumin/Globulin Ratio 1.1 Urine Color Urine Appearance Urine pH Ur Specific [place] Urine Protein Urine Glucose (UA) Urine Ketones Urine Occult Blood Urine Nitrate Urine Bilirubin Urine Urobilinogen Ur Leukocyte Esterase Urine RBC Urine WBC Amorphous Sediment Urine Bacteria Ur Culture Indicated? COVID-19 PCR Blood Type Antibody Screen 03/24/20 03/24/20 03/24/20 07:50 09:35 11:36 WBC RBC Hgb 11.6 L Hct 35.7 L MCV MCH MCHC RDW Plt Count Neut % (Auto) Lymph % (Auto) [place] % (Auto) Eos % (Auto) Baso % (Auto) Neut # (Auto) Lymph # (Auto) [place] # (Auto) Eos # (Auto) Baso # (Auto) PT INR APTT Sodium Potassium Chloride Carbon Dioxide BUN Creatinine Estimated GFR BUN/Creatinine Ratio Glucose Calcium Total Bilirubin AST ALT Alkaline Phosphatase C-Reactive Protein Total Protein Albumin Globulin Albumin/Globulin Ratio Urine Color Urine Appearance Urine pH Ur Specific [place] Urine Protein Urine Glucose (UA) Urine Ketones Urine Occult Blood Urine Nitrate Urine Bilirubin Urine Urobilinogen Ur Leukocyte Esterase Urine RBC Urine WBC Amorphous Sediment Urine Bacteria Ur Culture Indicated? COVID-19 PCR Negative Blood Type O Positive Antibody Screen Negative 03/24/20 03/24/20 11:36 12:40 WBC RBC Hgb Hct MCV MCH MCHC RDW Plt Count Neut % (Auto) Lymph % (Auto) [place] % (Auto) Eos % (Auto) Baso % (Auto) Neut # (Auto) Lymph # (Auto) [place] # (Auto) Eos # (Auto) Baso # (Auto) PT INR APTT Sodium Potassium Chloride Carbon Dioxide BUN Creatinine Estimated GFR BUN/Creatinine Ratio Glucose Calcium Total Bilirubin AST ALT Alkaline Phosphatase C-Reactive Protein 1.6 H Total Protein Albumin Globulin Albumin/Globulin Ratio Urine Color Yellow Urine Appearance Clear Urine pH 5.0 Ur Specific [place] 1.020 Urine Protein Negative Urine Glucose (UA) Negative Urine Ketones Negative Urine Occult Blood Negative Urine Nitrate Negative Urine Bilirubin Negative Urine Urobilinogen 0.2 Ur Leukocyte Esterase Negative Urine RBC 0-1/hpf Urine WBC 0-1/hpf Amorphous Sediment 1+ Urine Bacteria None seen Ur Culture Indicated? Cult not indicated COVID-19 PCR Blood Type Antibody Screen Assessment & Plan Assessment & Plan narrative: Aleksandar Bay is a 70-year-old male with past medical history significant for ulcerative colitis, adrenal insufficiency on glucocorticoids, and hypothyroidism who presented to the ED for recurrent bright red blood per rectum. 1. Acute lower GI bleed with mild acute blood loss anemia, present on admission. Active. -Patient presented with several recurrent episodes bright red blood per rectum which now appears to be improving/resolving. Differential diagnosis includes: Diverticular bleed versus ulcers colitis flare. -Initial hemoglobin and hematocrit 12.1 and 36.9 which are not vastly different than values in ED yesterday. Continue to monitor H&H daily or if he continues to bleed may be monitored more frequently. -Consulted general surgery, Dr. Lomeli, and we appreciate her time and recommendations. The patient previously had a colonoscopy performed last year. He prefers to have colonoscopy done as an outpatient with his oven operator automatic if possible which is reasonable. Plan to continue to monitor vital signs and for bleeding overnight. Continue clear liquid diet for now. If H&H stable and bleeding improved or resolved will likely discharge home tomorrow. 2. Ulcerative colitis, chronic, present on admission. Stable. -Patient denies abdominal pain or cramping, fever, chills, nausea, vomiting or diarrhea. He has never had bleeding with previous ulcerative colitis flares. Do not feel this represents a ulcerative colitis flare but possible. ESR normal at 15 and CRP essentially normal at 1.6 (corrected for age 1.4). -Received hydrocortisone 100 mg IV x1 in ED. Continue home prednisone 2.5 mg twice daily and mesalamine 1.2 mg twice daily. 3. Adrenal insufficiency secondary to chronic steroid use, chronic, present on admission. Stable. -Received hydrocortisone 100 mg IV x1 in ED. Continue home prednisone 2.5 mg twice daily. 4. Hypothyroidism, chronic, present on admission. Stable. -Continue home levothyroxine 88 mcg daily. Code status: Full code, surrogate decision maker is designated as patient is spouse VTE prophylaxis: Chemical contraindicated, SCDs Patient is admitted under observation status with expected length of stay less than 2 midnights due to severity of presenting symptoms, risk of adverse event, and complexity of treatment plan.
[2020-03-24] MEDS: LIALDA 1.2 GM 1 EACH PO (17:54)
[2020-03-24] MEDS: PREDNISONE 5MG TABLET 0.5 EACH PO (17:54)
[2020-03-24 19:10] LABS: Erythrocyte Sedimentation Rate 15 MM/HR (0-15)
[2020-03-25] VITALS: BP 119/68; PULSE 66; RESP 18; TEMP 35.6; O2SAT 99
[2020-03-25 04:00] VITALS: O2SAT 96
[2020-03-25 04:28] VITALS: BP 148/71; PULSE 70; RESP 18; TEMP 35.4; O2SAT 95
[2020-03-25] MEDS: LEVOTHYROXINE 1 EACH PO (05:02)
[2020-03-25 05:15] LABS: Add Manual Diff / Slide Review NO; Basophils Absolute Auto 100 /uL (0-100); Eosinophils Absolute Auto 200 /uL (0-450); Hematocrit 33.2 % (41-53); Hemoglobin 10.9 g/dL (13.5-17.5); Lymphocytes Absolute Auto 1100 /uL (1100-4500); Lymphocytes Percent Auto 19.8 % (25-40); Mean Corpuscular HGB Conc 32.8 % (30-36); Mean Corpuscular Hemoglobin 27.5 PG (26-34); Mean Corpuscular Volume 83.9 fL (80-100); Monocytes Absolute Auto 500 /uL (0-900); Monocytes Percent Auto 8.3 % (3-14); Neutrophils Absolute Auto 3900 /uL (1500-7000); Neutrophils Percent Auto 67.9 % (50-75); Platelet Count 195 X10^3/uL (150-400); Red Blood Cell Count 3.96 X10^6/uL (4.5-5.9); White Blood Cell Count 5.7 X10^3/uL (4.5-11.0)
[2020-03-25 05:29] LABS: BUN Creatinine Ratio 13.9 (6-22); Blood Urea Nitrogen 16 mg/dL (9-20); Calcium 8.4 mg/dL (8.4-10.2); Carbon Dioxide 35 mmol/L (22-32); Chloride 104 mmol/L (98-107); Estimated Glomerular Filt Rate > 60.0 mL/min (>60); Glucose 86 mg/dL (80-110); HEMOLYSIS < 15 (0-50); Magnesium 1.9 mg/dL (1.6-2.3); Potassium 3.9 mmol/L (3.4-5.1); Sodium 141 mmol/L (137-145)
--- NOTE | 2020-03-25 05:32 | PC.NURSE ---
fabrication inspector note: Patient with loose, bright red bowel movements x2, with second BM containing large blood clot. Patient with no abdominal pain/tenderness/lightheadedness nor dizziness throughout shift. Patient VSS, on RA. Patient stating he wants to follow up with his GI doctor as soon as possible to have a colonoscopy performed. But also states to this RN that he does not want anything done here. Patient hemoglobin down to 10.9 from 11.6 on this AM labs. Patient currently resting in bed, sleeping.
[2020-03-25 07:20] VITALS: BP 135/79; PULSE 69; RESP 16; TEMP 36.1; O2SAT 98
[2020-03-25 08:13] VITALS: O2SAT 97
[2020-03-25] MEDS: PREDNISONE 5MG TABLET 0.5 EACH PO (08:40)
[2020-03-25] MEDS: LIALDA 1.2 GM 1 EACH PO (08:40)
--- NOTE | 2020-03-25 10:09 | CM.DANOTE ---
Discharge Planning/Care Management DCP: assessment: case received, EMR reviewed and met with pt and his Shelli during Team Bedside Rounds. Introduced self and role. Pt is a 70 year old male who admitted yesterday to care of hospitalist team. PCP: Dr. Collins Consulting: [facility]: Dr. Lobato Pt also sees a GI specialist associated with [facility]. Dr. Sierra explained to pt that he would likely be ok for d/c later today and that he could follow up as he desired for a colonoscopy with his GI physician at [facility]. Pt stated he was eager for the d/c today and only need was to have less [place] of paper upon d/c. RN Linette was aware of same. CM Discharge Assessment Start: 03/25/20 10:07 Freq: Status: Active Protocol: Document 03/25/20 10:07 ITV (Rec: 03/25/20 10:08 ITV [id number]) Discharge Planning Assessment Advance Directives? Yes: at home per /will bring in later Advance Directives on File No History Provided By Patient,Family Member,Medical Record Prior Living Arrangements House Household Members spouse Independent with ADL's Yes Is patient alert and oriented? Yes Discharge Plan Home Review Status In Process
--- NOTE | 2020-03-25 11:19 | PM.DS.1 ---
History of Present Illness History of Present Illness Chief complaint: blood in stool Narrative: Written by myself Dr. Sierra: Aleksandar Bay is a 70-year-old male with past medical history significant for ulcerative colitis, adrenal insufficiency on glucocorticoids, and hypothyroidism who presented to the ED for recurrent bright red blood per rectum. He was previously seen in the ED yesterday for bright red blood per rectum. 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 The patient returned for several episodes of bright red blood per rectum now symptomatic with fatigue. The patient has not had a flare of his ulcerative colitis in at least 4 months. He reports his last flare of ulcerative colitis lasted a day and half and resolved on its own. He has been on mesalamine 1.2 mg twice daily and prednisone 2.5 mg twice daily. He has no signs of infection or inflammation and denies abdominal pain, diarrhea, fevers, chills, nausea or vomiting. He currently denies fatigue, lightheadedness or dizziness, shortness of breath, or chest pain. His ESR was normal at 15 and CRP essentially normal at 1.6 (corrected for age is 1.4). PCP Dr. Collins. Discharge Providers Provider Date of admission: 03/24/20 09:27 Discharge Date: 03/25/20 Primary care physician: Monica Collins DO Consults: 03/24/20 11:05 Consult to Dietitian, Adult Routine Comment: Reason For Exam: Ulcerative colitis Consult to Discharge Planning Routine Comment: 03/24/20 11:06 Consult to General Surgery Routine Comment: Consulting Provider: Mikala Lobato Reason for consultation: GI bleed Has provider been notified: Yes Discharge provider: Linda Sierra DO Summary Hospital Course Discharge Diagnosis: 1. Acute lower GI bleed with mild acute blood loss anemia, present on admission. Resolving. 2. Ulcerative colitis, chronic, present on admission. Stable. 3. Adrenal insufficiency secondary to chronic steroid use, chronic, present on admission. Stable. 4. Hypothyroidism, chronic, present on admission. Stable. Hospital Course: Aleksandar Bay is a 70-year-old male with past medical history significant for ulcerative colitis, adrenal insufficiency on glucocorticoids, and hypothyroidism who presented to the ED for recurrent bright red blood per rectum. 1. Acute lower GI bleed with mild acute blood loss anemia, present on admission. Resolving. -Patient presented with several recurrent episodes bright red blood per rectum which now appears to be improving/resolving. Differential diagnosis includes: Diverticular bleed versus ulcers colitis flare. -Initial hemoglobin and hematocrit 12.1 and 36.9 which are not vastly different than values in ED on 03/23/2020. Continued to monitor hemoglobin and hematocrit daily which trended down slightly now 10.9 and 33.2 due to rectal bleeding and some dilution from IV fluid. -Consulted general surgery, Dr. Lomeli, and we appreciate her time and recommendations. The patient previously had a colonoscopy performed last year which the patient reported no active UC or polyps and noted diverticulosis with recommendation for repeat colonoscopy in 1 year. The patient prefers to have repeat colonoscopy done as an outpatient with Gastroenterology at [facility]. -Continued to monitor for rectal bleeding which seems to be dissipating. Patient reports no diarrhea or loose stool. 2. Ulcerative colitis, chronic, present on admission. Stable. -Patient denies abdominal pain or cramping, fever, chills, nausea, vomiting or diarrhea. He has never had bleeding with previous ulcerative colitis flares. Do not feel this represents a ulcerative colitis flare but is definitely possible. ESR normal at 15 and CRP essentially normal at 1.6 (corrected for age 1.4). -Received hydrocortisone 100 mg IV x1 in ED. Discussed case with on-call gastroenterology at [facility], Dr. Lebron who recommended continuing mesalamine 1.2 mg twice daily, increasing prednisone to from 2.5 mg twice daily to 20 mg daily and adding Canasa suppository 1000 mg daily at bedtime until able to follow-up with gastroenterology at [facility] in the next 1 week which their office will arrange. 3. Adrenal insufficiency secondary to chronic steroid use, chronic, present on admission. Stable. -Received hydrocortisone 100 mg IV x1 in ED. Continued prednisone increased to 20 mg daily until able to follow-up with gastroenterology at [facility]. 4. Hypothyroidism, chronic, present on admission. Stable. -Continued home levothyroxine 88 mcg daily. Exam Vital Signs (past 8 hours): - 03/25/20 04:00 03/25/20 04:28 03/25/20 07:20 Temperature 95.8 F L 96.9 F L Pulse Rate 70 69 Respiratory Rate 18 16 Blood Pressure 148/71 H 135/79 Pulse Oximetry 96 95 98 03/25/20 08:13 Temperature Pulse Rate Respiratory Rate Blood Pressure Pulse Oximetry 97 Oxygen Delivery Method Room Air Oxygen Flow Rate 0 Narrative Exam Narrative: General: Elderly male sitting in bed and in no acute distress, well-developed, well-nourished, appropriately interactive. HEENT: Normocephalic, atraumatic. External ears without defect. Pupils equal, round, and reactive to light. Anicteric sclerae, moist conjunctivae, and no lid lag. Oropharynx free of erythema and cobble stoning with moist mucosa. No ulcerations in mouth. Neck: Supple with full range of motion. No jugular venous distension. No lymphadenopathy or thyromegaly. Cardiovascular: Regular rate and rhythm without murmurs, rubs, or gallops appreciated. Pulmonary: Clear to auscultation bilaterally without crackles, wheezes, or rhonchi. Normal respiratory effort with no use of accessory muscles. Abdomen: Soft, obese, bowel sounds present, nontender, nondistended. Extremities: No clubbing or cyanosis. Mild pitting edema to ankles bilaterally. Skin: Normal temperature, turgor, and texture; no rash, ulcers, or subcutaneous nodules appreciated. Neurological: Cranial nerves grossly intact. Psychiatric: Normal mood and affect. Alert and oriented to person, place, and time. Objective Labs Result Diagrams: 03/25/20 04:58 03/25/20 04:58 Labs: Laboratory Results - last 24 hr 03/24/20 03/24/20 03/24/20 11:36 11:36 11:36 WBC RBC Hgb 11.6 L Hct 35.7 L MCV MCH MCHC RDW Plt Count Neut % (Auto) Lymph % (Auto) [place] % (Auto) Eos % (Auto) Baso % (Auto) Neut # (Auto) Lymph # (Auto) [place] # (Auto) Eos # (Auto) Baso # (Auto) ESR 15 Sodium Potassium Chloride Carbon Dioxide BUN Creatinine Estimated GFR BUN/Creatinine Ratio Glucose Calcium Magnesium C-Reactive Protein 1.6 H Urine Color Urine Appearance Urine pH Ur Specific [place] Urine Protein Urine Glucose (UA) Urine Ketones Urine Occult Blood Urine Nitrate Urine Bilirubin Urine Urobilinogen Ur Leukocyte Esterase Urine RBC Urine WBC Amorphous Sediment Urine Bacteria Ur Culture Indicated? 03/24/20 03/25/20 03/25/20 12:40 04:58 04:58 WBC 5.7 RBC 3.96 L Hgb 10.9 L Hct 33.2 L MCV 83.9 MCH 27.5 MCHC 32.8 RDW 15.0 H Plt Count 195 Neut % (Auto) 67.9 Lymph % (Auto) 19.8 L [place] % (Auto) 8.3 Eos % (Auto) 3.0 Baso % (Auto) 1.0 Neut # (Auto) 3900 Lymph # (Auto) 1100 [place] # (Auto) 500 Eos # (Auto) 200 Baso # (Auto) 100 ESR Sodium 141 Potassium 3.9 Chloride 104 Carbon Dioxide 35 H BUN 16 Creatinine 1.15 Estimated GFR > 60.0 BUN/Creatinine Ratio 13.9 Glucose 86 Calcium 8.4 Magnesium 1.9 C-Reactive Protein Urine Color Yellow Urine Appearance Clear Urine pH 5.0 Ur Specific [place] 1.020 Urine Protein Negative Urine Glucose (UA) Negative Urine Ketones Negative Urine Occult Blood Negative Urine Nitrate Negative Urine Bilirubin Negative Urine Urobilinogen 0.2 Ur Leukocyte Esterase Negative Urine RBC 0-1/hpf Urine WBC 0-1/hpf Amorphous Sediment 1+ Urine Bacteria None seen Ur Culture Indicated? Cult not indicated Discharge Plan Discharge Plan Patient Disposition: Home Discharge comment: You are being discharged home. You had a GI bleed possibly due to ulcerative colitis flare versus diverticular bleed. Your prednisone has been increased to 20 mg daily until you follow-up with Gastroenterology, Dr. Lebron, at [facility] in the next 1 week and his office should be calling you to arrange this appointment. You have also been prescribed Canasa suppositories once daily at bedtime until you follow-up with GI. Continue mesalamine 1.2 mg twice daily. If you continue to have rectal bleeding that becomes increased in frequency accompanied with symptoms such as lightheadedness or dizziness, presyncope or syncope, chest pain, shortness of breath, weakness, fatigue, etc. please seek medical attention immediately. Discharge orders & Medications Prescriptions: New prednisone 20 mg tablet 20 mg PO DAILY Qty: 14 RF: 0 mesalamine [Canasa] 1,000 mg suppository 1 gram MA BEDTIME Qty: 14 RF: 0 Continued fluticasone propionate 50 mcg/actuation spray,suspension 1 spray Intranasal BID PRN (Reason: Congestion) Qty: 18.2 RF: 1 famciclovir 250 mg tablet 250 mg PO BID PRN (Reason: herpes zoster) Qty: 30 RF: 1 methyl B12 1 tab 1,000 mcg PO WEEKLY RF: 0 cholecalciferol (vitamin D3) 2,000 unit capsule 2,000 unit PO DAILY RF: 0 Probiotic 20 billion cell Capsule 1 cap PO DAILY RF: 0 magnesium 200 mg Tablet 200 mg PO WEEKLY RF: 0 turmeric 300 mg 600 mg PO DAILY RF: 0 Iron Complex 27 mg 1 tab PO Q OTHER DAY RF: 0 levothyroxine [Euthyrox] 88 mcg tablet 88 mcg PO DAILY RF: 0 L-Glutamine 500 mg capsule 500 mg PO BID PRN (Reason: increase immune function) RF: 0 econazole 1 % cream 1 applictn TOP BID PRN (Reason: Rash) RF: 0 mesalamine [Lialda] 1.2 gram Tablet,Delayed Release (Dr/Ec) 1.2 g PO BID RF: 0 Discontinued prednisone 5 mg tablet 2.5 mg PO BID RF: 0 Follow up/Referrals: Juan Francisco Truong MD [Non-Staff] - 1 Week (Dr. Lebron at [facility] gastroenterology within the next 1 week and his office should be calling to schedule appointment.) Monica Collins DO [Primary Care Provider] - Diet/Activity/Treatments Diet: Diet as Tolerated, Low-fat, Low-sodium and Low-cholesterol Activity: Activity as tolerated Visit Report/Discharge Packet Instructions: Mesalamine Rectal Visit Report Forms: Patient Portal/API, Stroke Signs & Symptoms Discharge Data Primary Care Provider: Monica Collins
--- NOTE | 2020-03-25 11:26 | PC.NURSE ---
Day shift: Pt did not want any of the discharge teachings paperwork or any paperwork related to his admit.
[2020-03-25] MEDS: predniSONE 20 MG TABLET PO (11:32)
--- NOTE | 2020-03-25 11:52 | PC.NURSE ---
Day shift: Paperwork signed and all questions answered. Pt has his meds that were down in pharmacy. New MD scripts sent to [facility]. Pt has all his personal belongings. Went over s/s of stroke. Pt will be taken to his car in [place] by this insurance underwriter or CERTIFIED ALCOHOL COUNSELOR after he is done w/ lunch. Pt's spouse will drive them home.
--- NOTE | 2020-03-25 13:02 | PC.NURSE ---
Day shift: Pt left unit at approx 1300 via w/ [employer] MACHINE Nenita.
== END 2020-03-25 13:03 | disposition home or self-care (01) ==
LOC: ED 09:27 → AC 09:45
PROVIDERS: Admitting Provider Internal Medicine; Emergency Provider Emergency Medicine; PCP Family Medicine; Referring Provider Emergency Medicine; Visit Provider Internal Medicine
DX: K92.2 Gastrointestinal hemorrhage, unspecified (principal); E03.9 Hypothyroidism, unspecified; D62 Acute posthemorrhagic anemia; K51.90 Ulcerative colitis, unspecified, without complications; E27.3 Drug-induced adrenocortical insufficiency; T38.0X5A Adverse effect of glucocorticoids and synthetic analogues, initial encounter; Z11.59 Encounter for screening for other viral diseases
CPT/HCPCS: 36415; 80048; 80053; 81001; 83735; 85014; 85018; 85025; 85610; 85651; 85730; 86140; 86850; 86900; 86901; 87635; 93005; 96361; 96374; 99225; 99284; G0378; J1720

== ENCOUNTER → 2020-04-07 11:27 | Outpatient (CLI) | payer MEDICARE, SELFPAY ==
[2020-03-24 11:35] VITALS: BMI 36.8
--- NOTE | 2020-04-07 13:37 | DI.CT.S_ITS ---
PROCEDURE: CT ABDOMEN PELVIS W CON INDICATIONS: ULCERATIVE PANCOLITIS W/O COMPLICATION TECHNIQUE: After the administration of oral and intravenous contrast, 5 mm thick sections acquired from the diaphragms to the symphysis. 5 mm thick coronal and sagittal reformats were performed. For radiation dose reduction, the following was used: automated exposure control, adjustment of mA and/or kV according to patient size. COMPARISON: [facility], CT, ABDOMEN/PELVIS WITH CONTRAST, 11/12/2016, 9:38. FINDINGS: Image quality: Excellent. ABDOMEN: Lung bases: No change in left lower lobe scarring. Lung bases are otherwise clear. Heart size is normal. Solid organs: Liver is normal in size and enhancement. Gallbladder is within normal limits . Biliary system is non-dilated. Pancreas enhances normally. Spleen is normal in size and enhancement. No adrenal nodules. Left kidney is absent. Right kidney is within normal limits. Peritoneum and bowel: There is a rounded mass involving the distal rectum extending to the anal rectal junction, measuring 40 mm diameter, which involves the anterior wall of the anaorectal junction. Stomach, small bowel, and colon loops are otherwise normal in caliber and wall thickness. No free fluid or air. Normal appendix. Nodes and vessels: No retroperitoneal or mesenteric adenopathy. Aorta and inferior vena cava are normal in caliber. Miscellaneous: There is an anterior abdominal wall supraumbilical small bowel containing hernia, which is decreased significantly in size, currently measuring 66 mm transverse. PELVIS: Genitourinary: Bladder wall thickness is normal. Miscellaneous: There is a right inguinal hernia containing urinary bladder dome. Bones: No suspicious bony lesions. No vertebral body compression fractures. IMPRESSION: 1. Anal rectal junction mass, suspicious for malignancy. No evidence of regional metastatic disease. 2. Right inguinal hernia containing urinary bladder dome. 3. Small bowel containing supraumbilical hernia with no evidence of bowel strangulation, or obstruction. 4. Normal appendix. Dictated by: Nikko Li M.D. on 04/07/2020 at 13:44 Approved by: Nikko Li M.D. on 04/07/2020 at 13:47
== END ==
PROVIDERS: PCP Family Medicine; Referring Provider Physician Assistant; Visit Provider Physician Assistant
DX: K51.00 Ulcerative (chronic) pancolitis without complications (principal); K62.5 Hemorrhage of anus and rectum; K62.9 Disease of anus and rectum, unspecified; R10.30 Lower abdominal pain, unspecified; K40.90 Unilateral inguinal hernia, without obstruction or gangrene, not specified as recurrent; K42.9 Umbilical hernia without obstruction or gangrene
CPT/HCPCS: 74177; Q9967

== ENCOUNTER → 2020-04-21 11:31 | Outpatient (CLI) | payer MEDICARE, SELFPAY ==
[2020-03-24 11:35] VITALS: BMI 36.8
--- NOTE | 2020-04-21 | DI.MRI.S_ITS ---
PROCEDURE: MR PELVIS WO CON INDICATIONS: Malignant neoplasm of anus, unspecified TECHNIQUE: Sagittal HASTE, axial T2, axial oblique T2 from the iliac crests to the symphysis. Patient subsequently terminated study COMPARISON: [facility], CT, CT CHEST ABD PEL W CON, 04/21/2020, 13:20. [facility], CT, CT ABDOMEN PELVIS W CON, 04/07/2020, 12:38. FINDINGS: The study was terminated by the patient prior to completion of the imaging protocol. Limited noncontrast sequences were performed through the pelvis. Image quality: There is mild motion artifact. Bowel and peritoneum: There is an intraluminal circumscribed mass within the inferior rectum. This measures up to 3.9 x 3.9 x 5.0 cm in dimension. This demonstrates slight hyperintensity relative to skeletal muscle. The caudal margin of the mass extends to approximately 3 cm from the anal verge. Evaluation is limited in the absence of intravenous contrast but there is no definite evidence of extramural invasion. The anterior wall of the rectum abuts the prostate. No definite prostatic invasion identified, but evaluation is limited in the absence of contrast. Visualized bowel loops otherwise appear normal in caliber. Urinary system: The urinary bladder is partially distended. Distal ureters are non distended. Nodes and vessels: No enlarged mesorectal lymph nodes. No pelvic or inguinal adenopathy by size criteria. Iliac vessels are normal in size. Soft tissues: There is a small fat-containing right inguinal hernia. Bones: Marrow demonstrates normal overall signal. IMPRESSION: 1. Limited study performed as described. 2. Intraluminal circumscribed mass at the anorectal junction compatible with history of anal cancer. No definite evidence of extramural extension or local invasion, with evaluation slightly limited by absence of intravenous contrast. 3. No evidence of pelvic lymphadenopathy by size criteria. Dictated by: Chris Manuel M.D. on 04/21/2020 at 16:37 Approved by: Chris Manuel M.D. on 04/21/2020 at 16:50
--- NOTE | 2020-04-21 12:08 | DI.CT.S_ITS ---
PROCEDURE: CT CHEST ABD PEL W CON INDICATIONS: Malignant neoplasm of anus, unspecified TECHNIQUE: After the administration of oral and intravenous contrast, 5 mm thick sections acquired from the lung apices to the symphysis. 5 mm coronal and sagittal reformats were performed, with additional 7 mm coronal MIP reformats through the lungs. For radiation dose reduction, the following was used: automated exposure control, adjustment of mA and/or kV according to patient size. COMPARISON: [facility], CT, ABDOMEN/PELVIS WITH CONTRAST, 05/31/2016, 16:52. [facility], CT, ABDOMEN/PELVIS WITH CONTRAST, 06/30/2013, 16:55. [facility], CT, CT ANGIO CHEST ABDOMEN PELVIS, 07/12/2018, 0:56. [facility], CT, ABDOMEN/PELVIS WITH CONTRAST, 11/12/2016, 9:38. [facility], CT, CT ABDOMEN PELVIS W CON, 04/07/2020, 12:38. FINDINGS: Image quality: Excellent. CHEST: Lungs and pleura: No acute airspace opacities. [id number] emphysema. Left lower lobe bronchiectasis. There is left basilar atelectasis or scarring. No pleural effusions or pneumothorax. Central and peripheral airways appear patent and normal in caliber. Mediastinum: Heart size is normal. No pericardial effusion. Mild to moderate coronary artery calcification. No mediastinal or hilar adenopathy by size criteria. Thoracic aorta and central pulmonary arteries are normal in size. Esophagus is normal in caliber. There is small hiatal hernia. Chest wall: No axillary or supraclavicular adenopathy by size criteria. Thyroid gland is atrophic. ABDOMEN: Solid organs: Liver is normal in size and enhancement. Gallbladder is normal. Biliary system is non dilated. Pancreas enhances normally. Spleen is normal in size. There is a 6 mm hypodensity in the lateral aspect of spleen, unchanged since 05/31/2016, most likely benign. Left adrenal is surgically absent. No adrenal nodules. The left kidney is surgically absent. Right kidney is normal in size. No hydronephrosis. Peritoneum and bowel: A round masslike appearance in anus measuring 3.8 cm. It appears unchanged. Bowel loops demonstrate normal wall thickness and caliber. No free fluid or air. Nodes and vessels: No retroperitoneal or mesenteric adenopathy by size criteria. Aorta and inferior vena cava are normal in size. Miscellaneous: Small ventral hernia containing a short segment of small intestine. PELVIS: Genitourinary: Bladder wall thickness is normal. Miscellaneous: No inguinal adenopathy. Bilateral fat containing inguinal hernias. The right inguinal hernia contains the bladder dome, but unchanged in appearance compared to the last exam. Bones: There is a 7 mm lucency in the left iliac (series 3, image 99). No vertebral body compression fractures. IMPRESSION: 1. Anal mass appears unchanged. 2. There is a 7 mm indeterminate lucent lesion in the left iliac bone. Recommend a whole-body bone scan for follow-up evaluation in this patient with anal cancer. 3. Small ventral hernia containing a short segment of small intestine. No findings to suggest small bowel obstruction. 4. Bilateral inguinal hernias. The right inguinal hernia contains the bladder dome. 5. Left nephrectomy and adrenalectomy. Dictated by: Alanis Colbert M.D. on 04/21/2020 at 17:31 Approved by: Alanis Colbert M.D. on 04/21/2020 at 18:21
[2020-04-21 12:10] LABS: Add Manual Diff / Slide Review NO; Basophils Absolute Auto 0 /uL (0-100); Basophils Percent Auto 0.4 % (0-2); Eosinophils Absolute Auto 200 /uL (0-450); Eosinophils Percent Auto 1.6 % (2-4); Hematocrit 32.6 % (41-53); Hemoglobin 10.4 g/dL (13.5-17.5); Lymphocytes Absolute Auto 1200 /uL (1100-4500); Lymphocytes Percent Auto 11.2 % (25-40); Mean Corpuscular HGB Conc 31.7 % (30-36); Mean Corpuscular Hemoglobin 27.2 PG (26-34); Mean Corpuscular Volume 85.6 fL (80-100); Monocytes Absolute Auto 700 /uL (0-900); Monocytes Percent Auto 6.8 % (3-14); Neutrophils Absolute Auto 8300 /uL (1500-7000); Platelet Count 227 X10^3/uL (150-400); Red Blood Cell Count 3.81 X10^6/uL (4.5-5.9); Red Cell Distribution Width 15.2 % (11.6-14.8); White Blood Cell Count 10.3 X10^3/uL (4.5-11.0)
[2020-04-21 12:20] LABS: Alanine Aminotransferase 19 IU/L (<50); Albumin 3.8 g/dL (3.5-5.0); Albumin Globulin Ratio 1.3 (1.0-2.8); Alkaline Phosphatase 62 U/L (38-126); Aspartate Aminotransferase 22 IU/L (17-59); BUN Creatinine Ratio 23.3 (6-22); Bilirubin Total 0.4 mg/dL (0.2-1.3); Blood Urea Nitrogen 30 mg/dL (9-20); Calcium 9.1 mg/dL (8.4-10.2); Carbon Dioxide 35 mmol/L (22-32); Chloride 102 mmol/L (98-107); Estimated Glomerular Filt Rate 55.1 mL/min (>60); Globulin 2.9 g/dL (1.7-4.1); Glucose 97 mg/dL (80-110); HEMOLYSIS < 15 (0-50); Potassium 4.1 mmol/L (3.4-5.1); Sodium 140 mmol/L (137-145); Total Protein 6.7 g/dL (6.3-8.2)
== END ==
PROVIDERS: PCP Family Medicine; Referring Provider Internal Medicine Hematology & Oncology; Visit Provider Internal Medicine Hematology & Oncology
DX: C21.0 Malignant neoplasm of anus, unspecified (principal); M89.9 Disorder of bone, unspecified; K43.9 Ventral hernia without obstruction or gangrene; K40.20 Bilateral inguinal hernia, without obstruction or gangrene, not specified as recurrent; E89.6 Postprocedural adrenocortical (-medullary) hypofunction; Z90.5 Acquired absence of kidney
CPT/HCPCS: 71260; 72195; 74177; 80053; 85025; Q9967

== ENCOUNTER 2020-04-26 21:34 | Emergency (ER) | payer MEDICARE, SELFPAY ==
[2020-03-24 11:35] VITALS: BMI 36.8
[2020-04-26] VITALS (16 sets, daily range): BP systolic 79–113; BP diastolic 50–70; PULSE 75–94; RESP 16–34; TEMP 36.5–36.7; O2SAT 96–98; BMI 37.7
--- NOTE | 2020-04-26 22:30 | PC.NURSE ---
pale mucous membranes. Dizziness with sitting upright in bed
[2020-04-26 22:33] LABS: Add Manual Diff / Slide Review NO; Basophils Absolute Auto 100 /uL (0-100); Basophils Percent Auto 0.7 % (0-2); Eosinophils Absolute Auto 100 /uL (0-450); Hemoglobin 8.6 g/dL (13.5-17.5); Lymphocytes Absolute Auto 1000 /uL (1100-4500); Lymphocytes Percent Auto 10.9 % (25-40); Mean Corpuscular HGB Conc 31.9 % (30-36); Mean Corpuscular Volume 84.6 fL (80-100); Monocytes Absolute Auto 400 /uL (0-900); Neutrophils Absolute Auto 7300 /uL (1500-7000); Neutrophils Percent Auto 82.4 % (50-75); Platelet Count 262 X10^3/uL (150-400); Red Blood Cell Count 3.19 X10^6/uL (4.5-5.9); Red Cell Distribution Width 15.5 % (11.6-14.8); White Blood Cell Count 8.8 X10^3/uL (4.5-11.0)
[2020-04-26 22:37] LABS: Prothrombin Time 11.1 SECONDS (10.1-12.7)
--- NOTE | 2020-04-26 22:37 | ED.GIBLEED ---
HPI - GI Bleed General Chief complaint: GI Bleed Stated complaint: rectal bleed Time Seen by Provider: 04/26/20 22:27 Source: patient and EMS Mode of arrival: EMS Limitations: no limitations History of Present Illness HPI Narrative: The patient was seen here last month with lower GI bleeding. He has a history of ulcer colitis, he had not experienced any recent flares prior to the recent GI bleed. He followed up with an outpatient colonoscopy, revealing an anal cancer. Dr. Whelan was his physician at that time. He also has a GI specialist. Follow-up care for the cancer is lined up, no the definitive treatment has been implemented. He is apparently scheduled for radiation therapy. He has had intermittent bleeding. Today, he sat on a toilet and passed blood for about an hour. He felt weak and dizzy, 911 was called. He is oriented, still feels weak. He feels a little short of breath. He has no chest pain. He denies dyspnea. He has mild upper abdominal pain. He has had no fever chills. He denies other recent illness, other than GI bleeding. Related Data Home Medications Medication Instructions Recorded Confirmed cholecalciferol (vitamin D3) 50 2,000 unit PO DAILY 04/23/18 03/24/20 mcg (2,000 unit) capsule Probiotic 1 cap PO DAILY 07/23/18 03/24/20 magnesium 200 mg PO WEEKLY 07/23/18 03/24/20 turmeric 600 mg PO DAILY 07/23/18 03/24/20 Iron Complex 1 tab PO Q OTHER DAY 09/10/18 03/24/20 mesalamine [Lialda] 1.2 g PO BID 09/30/18 03/24/20 methyl B12 1,000 mcg PO WEEKLY 02/02/20 03/24/20 L-Glutamine 500 mg PO BID PRN 03/24/20 03/24/20 econazole 1 applictn TOP BID PRN 03/24/20 03/24/20 levothyroxine [Euthyrox] 88 mcg PO DAILY 03/24/20 03/24/20 prednisone 5 mg tablet 5 mg PO DAILY 04/18/20 Previous Rx's Medication Instructions Recorded fluticasone propionate 50 1 spray INTRANASAL BID PRN #18.2 ml 10/04/19 mcg/actuation nasal spray,suspension mesalamine [Canasa] 1 gram NE BEDTIME #14 each 03/25/20 famciclovir 250 mg tablet 250 mg PO BID PRN #30 tab 04/20/20 Allergies Allergy/AdvReac Type Severity Reaction Status Date / Time cefazolin [CEFAZOLIN] Allergy Severe rash Verified 03/24/20 08:00 levofloxacin [From LEVAQUIN] Allergy Mild Verified 03/24/20 08:00 morphine [MORPHINE] Allergy Mild STOPPED Verified 03/24/20 08:00 BREATHING. Review of Systems Review of Systems ROS Unobtainable: All systems reviewed & are unremarkable except as noted in HPI and below Constitutional Constitutional: Denies chills, Reports fatigue, Denies fever(s) and Denies headache(s) Eyes Comments: No complaints ENT Ears, Nose, Mouth, and Throat: Denies vertigo, Denies dizziness, Denies headache(s) and Denies sore throat Cardiovascular Cardiovascular: Denies chest pain, Denies rapid heart rate and Reports dyspnea on exertion Respiratory Respiratory: Denies chest congestion, Denies cough and Reports dyspnea on exertion Gastrointestinal Comments: Upper abdominal pain. No nausea vomiting. Bloody diarrhea. See HPI Genitourinary Comments: No genital pain. No dysuria. Musculoskeletal Musculoskeletal: Denies back pain and Denies arthralgias Integumentary/Breasts Skin/Breast: Denies pruritus, Denies erythema, Denies rash and Denies wounds Neurologic Neurologic: Denies vertigo, Denies dizziness and Denies headache(s) Endocrine Endocrine: Reports fatigue Patient History Medical History (Updated 04/27/20 @ 07:44 by Herrera Adam MD) Acquired hypothyroidism (Chronic) Acute dehydration (Resolved) Anal cancer (Acute) Anal squamous cell carcinoma (Acute ~02/2020) Anemia (Chronic 10/13/13) C. 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) Influenza A (Inactive) Intractable diarrhea (Resolved) Obesity with body mass index (BMI) of 30.0 to 39.9 (Chronic 08/19/15) Onychomycosis (Chronic) Pseudopolyp of ascending colon (Chronic) Pseudopolyposis of colon (Chronic 09/17/13) Renal cell carcinoma of left kidney (Resolved 09/27/15) Small bowel obstruction (Resolved) 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) Syncope (Inactive) Ulcerative colitis (Chronic) Ulcerative colitis (Chronic) Ventral hernia without obstruction or gangrene (Chronic 08/07/16) Surgical History Fractures (Resolved) History of neck surgery (Resolved ~2006) History of nephrectomy (~08/2015) History of third molar tooth extraction History of tonsillectomy (~1955) History of tonsillectomy (~1956) History of tonsillectomy (~1959) Status post colonoscopy Family History Mother Congestive heart failure Father Liver failure Alzheimer's dementia Social History household members: spouse Smoking Status: Former smoker alcohol intake: never Smoking Status: Former smoker alcohol intake frequency: holidays/special occasions only Alcohol type: other Substance Use Type: does not use Exam Initial Vital Signs Initial Vital Signs: Vital Signs Temperature 97.7 F 04/26/20 21:47 Pulse Rate 82 04/26/20 21:47 Respiratory Rate 18 04/26/20 21:47 Blood Pressure 113/70 04/26/20 21:47 Pulse Oximetry 97 04/26/20 21:47 Const General: cooperative and diaphoretic Orientation: Orientation [facility] Head: normal to inspection, normocephalic and atraumatic Mouth: oral mucosae normal Throat: posterior oropharynx normal Eyes Conjunctivae: conjunctivae normal Sclera: sclerae normal Neck Neck: No JVD Resp Effort & Inspection: normal respiratory effort and able to speak in complete sentences Auscultation: clear to auscultation bilaterally, no rales, no rhonchi and no wheezes Cardio Rate: regular rate Rhythm: regular rhythm Heart Sounds: S1 normal and S2 normal Pulses: normal peripheral pulses GI Inspection: non-distended Palpation: soft, no hepatosplenomegaly, No guarding, No pulsatile mass and tender (Mild RUQ tenderness.) Auscultation: normal bowel sounds Back/Spine/Pelvis Back: No back tenderness Skin General: no rashes or lesions noted, No jaundice, pallor and cool/cold Lesions: lesions noted Neuro General: patient alert, patient oriented x3, gait normal and no focal motor deficits Speech: speech normal Extrem General: full ROM, no clubbing, cyanosis or edema, no pedal edema and no calf tenderness Course Course Course Narrative: The patient shortly after arrival developed a blood pressure 79 systolic. He arrived after a significant bloody BM at home. He had another bloody BM here close after arrival. His H/H had decreased 10.4/32 several days ago to a 8.6/27. The CBC was out IV fluid dilution IV fluids were initiated. The patient was transfused 2 units of PRBCs. His blood pressure is restored. He is feeling much better. He did have 1 additional bloody BM. I discussed the case briefly with his artificial flowers supervisor at [facility], Dr. Ybarra. During the colonoscopy, cauterization was done. The patient is now bleeding profusely. He has been seen by the radiation oncologist, no specific plan has been initiated. I discussed the case further with the local on-call surgeon, who concurred with stabilization and transfer to [facility]. The working hospitalist [facility], , accepted the patient. Ongoing care for the cancer as well as a GI bleeding can be conducted there. At the time discharge the patient added blood pressure 150s systolic, he has no recent bleeding. He has improved significantly. Orders Ordered: ED Orders 04/26/20 22:27 EKG-12 Lead Stat 04/27/20 00:18 COVID19 -ED/INPAT/OR/L&D Stat 04/27/20 03:31 Complete Blood Count AUTO DIFF Stat Sodium Chloride (Normal Saline 0.9%) 1,000 mls @ 150 mls/hr IV CONT JOY Last Infusion: 04/27/20 07:21 Dose: 0 mls/hr Documented by: Admin: 04/27/20 05:41 Dose: 150 mls/hr Documented by: DORIE Discontinued Medications Sodium Chloride (Normal Saline 0.9%) 1,000 mls @ 1,000 mls/hr IV BOLUS ONE Stop: 04/26/20 23:34 Last Infusion: 04/26/20 23:55 Dose: 0 mls/hr Documented by: Admin: 04/26/20 22:40 Dose: 1,000 mls/hr Documented by: KHADIJAH Vital Signs Vital signs: Vital Signs - 8 hr 04/26/20 23:30 04/26/20 23:36 04/26/20 23:38 Temperature 98.0 F Pulse Rate 76 78 80 Respiratory Rate 32 H 16 24 Blood Pressure 89/55 L 91/65 91/65 Pulse Oximetry 97 98 04/26/20 23:40 04/26/20 23:53 04/26/20 23:58 Temperature 98.0 F 98.1 F Pulse Rate 75 76 76 Respiratory Rate 30 H 18 16 Blood Pressure 94/63 98/55 L 105/59 L Pulse Oximetry 96 98 04/27/20 00:00 04/27/20 00:15 04/27/20 00:30 Temperature Pulse Rate 74 75 74 Respiratory Rate 10 L 13 12 Blood Pressure 105/59 L 103/56 L 108/63 Pulse Oximetry 98 97 96 04/27/20 00:45 04/27/20 01:00 04/27/20 01:01 Temperature 97.8 F Pulse Rate 73 67 68 Respiratory Rate 14 10 L 14 Blood Pressure 98/63 95/61 Pulse Oximetry 97 98 97 04/27/20 01:15 04/27/20 01:21 04/27/20 01:30 Temperature 97.6 F Pulse Rate 68 66 67 Respiratory Rate 14 13 Blood Pressure 95/60 99/62 103/57 L Pulse Oximetry 98 97 96 04/27/20 01:33 04/27/20 01:39 04/27/20 01:45 Temperature 97.5 F L Pulse Rate 66 65 65 Respiratory Rate 14 14 14 Blood Pressure 103/57 L 124/58 L 117/57 L Pulse Oximetry 96 97 96 04/27/20 02:00 04/27/20 02:01 04/27/20 02:15 Temperature Pulse Rate 64 64 67 Respiratory Rate 14 15 13 Blood Pressure 130/63 128/58 L Pulse Oximetry 97 98 97 04/27/20 02:30 04/27/20 03:04 04/27/20 03:16 Temperature Pulse Rate 68 73 66 Respiratory Rate 16 16 18 Blood Pressure 125/63 155/70 H 112/53 L Pulse Oximetry 98 95 96 04/27/20 03:30 04/27/20 03:46 04/27/20 04:00 Temperature Pulse Rate 64 65 63 Respiratory Rate 12 14 17 Blood Pressure 96/51 L 117/58 L 135/62 Pulse Oximetry 94 95 96 04/27/20 04:15 04/27/20 04:30 04/27/20 04:45 Temperature Pulse Rate 63 67 75 Respiratory Rate 19 20 Blood Pressure 131/60 129/61 133/75 Pulse Oximetry 97 96 04/27/20 05:00 04/27/20 05:15 04/27/20 05:30 Temperature Pulse Rate 71 68 73 Respiratory Rate 17 21 23 Blood Pressure 126/61 112/74 106/61 Pulse Oximetry 95 96 98 04/27/20 05:46 04/27/20 06:00 04/27/20 06:15 Temperature Pulse Rate 63 63 62 Respiratory Rate 16 20 18 Blood Pressure 123/59 L 113/56 L 123/56 L Pulse Oximetry 97 97 92 04/27/20 06:30 04/27/20 06:45 04/27/20 07:00 Temperature Pulse Rate 62 64 63 Respiratory Rate 24 22 19 Blood Pressure 119/56 L 136/62 132/63 Pulse Oximetry 92 97 91 04/27/20 07:15 Temperature Pulse Rate 69 Respiratory Rate 24 Blood Pressure 151/67 H Pulse Oximetry 97 MDM - GI Bleed Lab Data Result diagrams: 04/27/20 03:31 04/26/20 22:20 Labs: Lab Results 04/26/20 04/26/20 04/26/20 Range/Units 00:01 22:20 22:20 WBC 8.8 (4.5-11.0) X10^3/uL RBC 3.19 L (4.5-5.9) X10^6/uL Hgb 8.6 L (13.5-17.5) g/dL Hct 27.0 L (41-53) % MCV 84.6 (80-100) fL MCH 27.0 (26-34) PG MCHC 31.9 (30-36) % RDW 15.5 H (11.6-14.8) % Plt Count 262 (150-400) X10^3/uL Neut % (Auto) 82.4 H (50-75) % Lymph % (Auto) 10.9 L (25-40) % [place] % (Auto) 5.0 (3-14) % Eos % (Auto) 1.0 L (2-4) % Baso % (Auto) 0.7 (0-2) % Neut # (Auto) 7300 H (3961-8858) /uL Lymph # (Auto) 1000 L (4527-0750) /uL [place] # (Auto) 400 (0-900) /uL Eos # (Auto) 100 (0-450) /uL Baso # (Auto) 100 (0-100) /uL PT 11.1 (10.1-12.7) SECONDS INR 1.0 (0.9-1.3) APTT 27 D (26.4-36.2) SECONDS Sodium (137-145) mmol/L Potassium (3.4-5.1) mmol/L Chloride (98-107) mmol/L Carbon Dioxide (22-32) mmol/L BUN (9-20) mg/dL Creatinine (0.66-1.25) mg/dL Estimated GFR (>60) mL/min BUN/Creatinine Ratio (6-22) Glucose (80-110) mg/dL Calcium (8.4-10.2) mg/dL Total Bilirubin (0.2-1.3) mg/dL AST (17-59) IU/L ALT (<50) IU/L Alkaline Phosphatase (38-126) U/L Total Protein (6.3-8.2) g/dL Albumin (3.5-5.0) g/dL Globulin (1.7-4.1) g/dL Albumin/Globulin Ratio (1.0-2.8) COVID-19 PCR Negative (Negative) Blood Type Antibody Screen Crossmatch 04/26/20 04/26/20 04/27/20 Range/Units 22:20 22:20 03:31 WBC 7.2 (4.5-11.0) X10^3/uL RBC 3.30 L (4.5-5.9) X10^6/uL Hgb 9.1 L (13.5-17.5) g/dL Hct 28.1 L (41-53) % MCV 85.0 (80-100) fL MCH 27.5 (26-34) PG MCHC 32.3 (30-36) % RDW 15.4 H (11.6-14.8) % Plt Count 188 (150-400) X10^3/uL Neut % (Auto) 75.3 H (50-75) % Lymph % (Auto) 15.9 L (25-40) % [place] % (Auto) 6.7 (3-14) % Eos % (Auto) 1.3 L (2-4) % Baso % (Auto) 0.8 (0-2) % Neut # (Auto) 5400 (5600-7156) /uL Lymph # (Auto) 1100 (7406-4417) /uL [place] # (Auto) 500 (0-900) /uL Eos # (Auto) 100 (0-450) /uL Baso # (Auto) 100 (0-100) /uL PT (10.1-12.7) SECONDS INR (0.9-1.3) APTT (26.4-36.2) SECONDS Sodium 136 L (137-145) mmol/L Potassium 4.5 (3.4-5.1) mmol/L Chloride 104 (98-107) mmol/L Carbon Dioxide 31 (22-32) mmol/L BUN 30 H (9-20) mg/dL Creatinine 1.18 (0.66-1.25) mg/dL Estimated GFR > 60.0 (>60) mL/min BUN/Creatinine Ratio 25.4 H (6-22) Glucose 121 H (80-110) mg/dL Calcium 8.7 (8.4-10.2) mg/dL Total Bilirubin 0.4 (0.2-1.3) mg/dL AST 23 (17-59) IU/L ALT 19 (<50) IU/L Alkaline Phosphatase 58 (38-126) U/L Total Protein 6.2 L (6.3-8.2) g/dL Albumin 3.3 L (3.5-5.0) g/dL Globulin 2.9 (1.7-4.1) g/dL Albumin/Globulin Ratio 1.1 (1.0-2.8) COVID-19 PCR (Negative) Blood Type O Positive Antibody Screen Negative Crossmatch See Detail Point of Care Testing Stool Occult Blood Positive Urine Dip Bedside Urine Glucose Negative Bedside Urine Bilirubin - Negative Bedside Urine Ketone - Negative Urine Specific [place] 1.030 Bedside Urine Occult Blood - Negative Bedside Urine pH 5.5 Bedside Urine Protein - Negative Bedside Urine Urobilinogen - Negative Bedside Urine Nitrite - Negative Bedside Urine Leukocytes - Negative Esterase Discharge Plan Departure Patient Disposition: [facility] Clinical Impression: Acute lower gastrointestinal bleeding, Ulcerative colitis, Anal cancer Prescriptions: No Action fluticasone propionate 50 mcg/actuation spray,suspension 1 spray Intranasal BID PRN (Reason: Congestion) Qty: 18.2 RF: 1 methyl B12 1 tab 1,000 mcg PO WEEKLY RF: 0 prednisone 5 mg tablet 5 mg PO DAILY RF: 0 famciclovir 250 mg tablet 250 mg PO BID PRN (Reason: herpes zoster) Qty: 30 RF: 1 cholecalciferol (vitamin D3) 2,000 unit capsule 2,000 unit PO DAILY RF: 0 Probiotic 20 billion cell Capsule 1 cap PO DAILY RF: 0 magnesium 200 mg Tablet 200 mg PO WEEKLY RF: 0 turmeric 300 mg 600 mg PO DAILY RF: 0 Iron Complex 27 mg 1 tab PO Q OTHER DAY RF: 0 levothyroxine [Euthyrox] 88 mcg tablet 88 mcg PO DAILY RF: 0 L-Glutamine 500 mg capsule 500 mg PO BID PRN (Reason: increase immune function) RF: 0 econazole 1 % cream 1 applictn TOP BID PRN (Reason: Rash) RF: 0 mesalamine [Canasa] 1,000 mg suppository 1 gram NE BEDTIME Qty: 14 RF: 0 mesalamine [Lialda] 1.2 gram Tablet,Delayed Release (Dr/Ec) 1.2 g PO BID RF: 0 Referrals: Monica Collins DO [Primary Care Provider] -
[2020-04-26 22:39] LABS: PTT Partial Thromboplastin Tim 27 SECONDS (26.4-36.2)
[2020-04-26] MEDS: SODIUM CHLORIDE 0.9% 1,000 ML 1000 ML IV (22:40)
[2020-04-26 22:41] LABS: Alanine Aminotransferase 19 IU/L (<50); Albumin 3.3 g/dL (3.5-5.0); Albumin Globulin Ratio 1.1 (1.0-2.8); Alkaline Phosphatase 58 U/L (38-126); Aspartate Aminotransferase 23 IU/L (17-59); BUN Creatinine Ratio 25.4 (6-22); Bilirubin Total 0.4 mg/dL (0.2-1.3); Blood Urea Nitrogen 30 mg/dL (9-20); Calcium 8.7 mg/dL (8.4-10.2); Carbon Dioxide 31 mmol/L (22-32); Chloride 104 mmol/L (98-107); Estimated Glomerular Filt Rate > 60.0 mL/min (>60); Globulin 2.9 g/dL (1.7-4.1); Glucose 121 mg/dL (80-110); HEMOLYSIS 17 (0-50); Potassium 4.5 mmol/L (3.4-5.1); Sodium 136 mmol/L (137-145); Total Protein 6.2 g/dL (6.3-8.2)
[2020-04-27] VITALS (34 sets, daily range): BP systolic 95–155; BP diastolic 51–75; PULSE 62–75; RESP 10–24; TEMP 36.4–36.6; O2SAT 91–98
[2020-04-27 00:37] LABS: COVID19 -Nasal RAPID Negative (Negative)
--- NOTE | 2020-04-27 03:27 | PC.NURSE ---
Pt had a medium/large dark red BM. BP stable. MD informed.
[2020-04-27 03:44] LABS: Add Manual Diff / Slide Review NO; Basophils Absolute Auto 100 /uL (0-100); Basophils Percent Auto 0.8 % (0-2); Eosinophils Absolute Auto 100 /uL (0-450); Eosinophils Percent Auto 1.3 % (2-4); Hematocrit 28.1 % (41-53); Hemoglobin 9.1 g/dL (13.5-17.5); Lymphocytes Absolute Auto 1100 /uL (1100-4500); Lymphocytes Percent Auto 15.9 % (25-40); Mean Corpuscular HGB Conc 32.3 % (30-36); Mean Corpuscular Hemoglobin 27.5 PG (26-34); Monocytes Absolute Auto 500 /uL (0-900); Monocytes Percent Auto 6.7 % (3-14); Neutrophils Absolute Auto 5400 /uL (1500-7000); Neutrophils Percent Auto 75.3 % (50-75); Platelet Count 188 X10^3/uL (150-400); Red Cell Distribution Width 15.4 % (11.6-14.8); White Blood Cell Count 7.2 X10^3/uL (4.5-11.0)
[2020-04-27] MEDS: SODIUM CHLORIDE 0.9% 1,000 ML 150 ML IV (05:41)
== END 2020-04-27 08:29 | disposition short-term general hospital (02) ==
PROVIDERS: Emergency Provider Emergency Medicine; PCP Family Medicine
DX: K51.911 Ulcerative colitis, unspecified with rectal bleeding (principal); K92.2 Gastrointestinal hemorrhage, unspecified; C21.0 Malignant neoplasm of anus, unspecified; R06.02 Shortness of breath; R10.10 Upper abdominal pain, unspecified
CPT/HCPCS: 36415; 36430; 80053; 81003; 82272; 85025; 85610; 85730; 86850; 86900; 86901; 87635; 96360; 96361; 99285; P9016

== ENCOUNTER → 2020-05-08 10:24 | Outpatient (CLI) | payer MEDICARE, SELFPAY ==
[2020-03-24 11:35] VITALS: BMI 36.8
[2020-05-08 10:43] LABS: Add Manual Diff / Slide Review NO; Basophils Absolute Auto 100 /uL (0-100); Basophils Percent Auto 0.9 % (0-2); Eosinophils Absolute Auto 100 /uL (0-450); Eosinophils Percent Auto 1.7 % (2-4); Hematocrit 31.1 % (41-53); Lymphocytes Absolute Auto 1300 /uL (1100-4500); Lymphocytes Percent Auto 22.6 % (25-40); Mean Corpuscular HGB Conc 32.2 % (30-36); Mean Corpuscular Hemoglobin 27.8 PG (26-34); Mean Corpuscular Volume 86.2 fL (80-100); Monocytes Absolute Auto 400 /uL (0-900); Monocytes Percent Auto 5.9 % (3-14); Neutrophils Absolute Auto 4100 /uL (1500-7000); Neutrophils Percent Auto 68.9 % (50-75); Platelet Count 271 X10^3/uL (150-400); Red Cell Distribution Width 15.4 % (11.6-14.8)
[2020-05-08 10:54] LABS: BUN Creatinine Ratio 15.2 (6-22); Blood Urea Nitrogen 19 mg/dL (9-20); Calcium 8.8 mg/dL (8.4-10.2); Carbon Dioxide 36 mmol/L (22-32); Chloride 101 mmol/L (98-107); Estimated Glomerular Filt Rate 57.1 mL/min (>60); Glucose 89 mg/dL (80-110); HEMOLYSIS < 15 (0-50); Potassium 3.8 mmol/L (3.4-5.1); Sodium 138 mmol/L (137-145)
== END ==
PROVIDERS: PCP Family Medicine; Referring Provider Family Medicine; Visit Provider Family Medicine
DX: C21.0 Malignant neoplasm of anus, unspecified (principal); K51.90 Ulcerative colitis, unspecified, without complications; K92.2 Gastrointestinal hemorrhage, unspecified
CPT/HCPCS: 36415; 80048; 85025

== ENCOUNTER 2020-05-16 16:51 | Emergency (ER) | payer MEDICARE, SELFPAY ==
[2020-03-24 11:35] VITALS: BMI 36.8
[2020-05-16 16:51] VITALS: BP 179/81; PULSE 81; RESP 20; O2SAT 92; BMI 37.5
[2020-05-16 17:10] VITALS: TEMP 37
--- NOTE | 2020-05-16 17:26 | ED.RECABL ---
HPI - Recheck/Abnormal Lab/Rx <Catherine PriceAMA - Last Filed: 05/16/20 18:42> General Chief Complaint: Recheck/Abnormal Lab/Rx Stated Complaint: NEEDS PICC LINE FIXED Time Seen by Provider: 05/16/20 17:08 Source: patient and family Mode of arrival: Wheelchair History of Present Illness HPI narrative: 70yo male presents to the ED for a dressing change to his PICC line that was inserted today. He states it was inserted at [facility] for chemotherapy and radiation for anal cancer. Patient states when he took off his jacket later this evening he noticed some bleeding, he presents to the ED currently for a dressing change as part of the bandage has started to peel away. He denies any pain, difficulty moving his arm, chest pain, shortness of breath, nausea, vomiting, diarrhea, or any other concerns. Related Data Home Medications Medication Instructions Recorded Confirmed cholecalciferol (vitamin D3) 50 2,000 unit PO DAILY 04/23/18 03/24/20 mcg (2,000 unit) capsule Probiotic 1 cap PO DAILY 07/23/18 03/24/20 magnesium 200 mg PO WEEKLY 07/23/18 03/24/20 turmeric 600 mg PO DAILY 07/23/18 03/24/20 Iron Complex 1 tab PO Q OTHER DAY 09/10/18 03/24/20 mesalamine [Lialda] 1.2 g PO BID 09/30/18 03/24/20 methyl B12 1,000 mcg PO WEEKLY 02/02/20 03/24/20 L-Glutamine 500 mg PO BID PRN 03/24/20 03/24/20 econazole 1 applictn TOP BID PRN 03/24/20 03/24/20 levothyroxine [Euthyrox] 88 mcg PO DAILY 03/24/20 03/24/20 prednisone 5 mg tablet 5 mg PO DAILY 04/18/20 Previous Rx's Medication Instructions Recorded fluticasone propionate 50 1 spray INTRANASAL BID PRN #18.2 ml 10/04/19 mcg/actuation nasal spray,suspension mesalamine [Canasa] 1 gram AR BEDTIME #14 each 03/25/20 famciclovir 250 mg tablet 250 mg PO BID PRN #30 tab 04/20/20 Allergies Allergy/AdvReac Type Severity Reaction Status Date / Time cefazolin [CEFAZOLIN] Allergy Severe rash Verified 03/24/20 08:00 levofloxacin [From LEVAQUIN] Allergy Mild Verified 03/24/20 08:00 morphine [MORPHINE] Allergy Mild STOPPED Verified 03/24/20 08:00 BREATHING. Review of Systems <AMA Flores - Last Filed: 05/16/20 18:42> Review of Systems Narrative: REVIEW OF SYSTEMS: GENERAL: Denies fever or chills. HENT: Denies head trauma. CARDIOVASCULAR: Denies syncope. MUSCULOSKELETAL: Denies weakness, or deformities. INTEGUMENTARY: Reports that he needs a PICC dressing change, see HPI. NEURO: Denies numbness or tingling. Patient History <AMA Flores - Last Filed: 05/16/20 18:42> Medical History Acquired hypothyroidism Acute dehydration Anal cancer Anal squamous cell carcinoma (~02/2020) Anemia (10/13/13) C. 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 Syncope Ulcerative colitis Ulcerative colitis Ventral hernia without obstruction or gangrene (08/07/16) Surgical History Fractures History of neck surgery (~2006) History of nephrectomy (~08/2015) History of third molar tooth extraction History of tonsillectomy (~1955) History of tonsillectomy (~1956) History of tonsillectomy (~1959) Status post colonoscopy Family History Mother Congestive heart failure Father Liver failure Alzheimer's dementia Social History household members: spouse Smoking Status: Former smoker alcohol intake: never Smoking Status: Former smoker alcohol intake frequency: holidays/special occasions only Alcohol type: other Substance Use Type: does not use Exam <AMA Flores - Last Filed: 05/16/20 18:42> Initial Vital Signs Initial Vital Signs: Vital Signs Pulse Rate 81 05/16/20 16:51 Respiratory Rate 20 05/16/20 16:51 Blood Pressure 179/81 H 05/16/20 16:51 Pulse Oximetry 92 05/16/20 16:51 PHYSICAL EXAMINATION: GENERAL: Well groomed, alert, and cooperative. Answers questions promptly and appropriately. Vital signs noted. HENT: Normocephalic, atraumatic. RESPIRATORY: Normal respiratory rate, trachea midline, airway patent. No stridor, nasal flaring or accessory muscle use. MUSCULOSKELETAL: Normal gait and coordination. Equal tone and mass bilaterally. EXTREMITIES: CMS intact. PICC secured on right arm, dried blood noted surrounding the site which has caused a Tegaderm to lift up at 1 point. No surrounding erythema, no pain with palpation, PICC appears to be in place without any excessive slack. SKIN: Warm, dry, soft, appropriate color for ethnicity. NEURO: Alert and Oriented X 3. Good coordination. PSYCH: Appropriate affect and mood. <Td Torres DO - Last Filed: 05/16/20 18:43> Initial Vital Signs Initial Vital Signs: Vital Signs Pulse Rate 81 05/16/20 16:51 Respiratory Rate 20 05/16/20 16:51 Blood Pressure 179/81 H 05/16/20 16:51 Pulse Oximetry 92 05/16/20 16:51 Course <AMA Flores - Last Filed: 05/16/20 18:42> Vital Signs Vital signs: Vital Signs - 8 hr 05/16/20 16:51 05/16/20 17:10 05/16/20 18:00 Temperature 98.6 F Pulse Rate 81 70 Respiratory Rate 20 18 Blood Pressure 179/81 H 147/73 H Pulse Oximetry 92 95 <Td Torres DO - Last Filed: 05/16/20 18:43> Vital Signs Vital signs: Vital Signs - 8 hr 05/16/20 16:51 05/16/20 17:10 05/16/20 18:00 Temperature 98.6 F Pulse Rate 81 70 Respiratory Rate 20 18 Blood Pressure 179/81 H 147/73 H Pulse Oximetry 92 95 [facility] - Recheck/Abnormal Lab/Rx <DIPTI FloresP - Last Filed: 05/16/20 18:42> Medical Records Attestation: I reviewed the patient's medical records. Lab Data Attestation: I reviewed the patient's lab results. [facility] Narrative Medical decision making narrative: 70-year-old male presenting the ED for bleeding around his dressing from recently placed PICC line Dressing replaced via nursing, patient observed for an hour, no additional bleeding. I suspect ear irritation to the wound post insertion cause some bleeding. Does not appear that the PICC line moved. No signs of infection such as swelling or erythema. No pain to suggest mal-placement. Return precautions given for new or worsening symptoms. He is encouraged to follow up with PCP. Discharge Plan Departure Patient Disposition: Home Clinical Impression: Bleeding from PICC line Qualifiers: Encounter type: initial encounter Qualified Code(s): T82.838A - Hemorrhage due to vascular prosthetic devices, implants and grafts, initial encounter Activity Restrictions/Additional Instructions: Thank you for entrusting me with your care today. As discussed, your dressing on your PICC line has been changed. Bleeding occasionally happens from the site especially when the PICC line is new. Follow-up with your provider as instructed. Return emergency department for any new or worsening symptoms such as redness, continued bleeding, severe pain, or any other concerns. Prescriptions: No Action fluticasone propionate 50 mcg/actuation spray,suspension 1 spray Intranasal BID PRN (Reason: Congestion) Qty: 18.2 RF: 1 methyl B12 1 tab 1,000 mcg PO WEEKLY RF: 0 prednisone 5 mg tablet 5 mg PO DAILY RF: 0 famciclovir 250 mg tablet 250 mg PO BID PRN (Reason: herpes zoster) Qty: 30 RF: 1 cholecalciferol (vitamin D3) 2,000 unit capsule 2,000 unit PO DAILY RF: 0 Probiotic 20 billion cell Capsule 1 cap PO DAILY RF: 0 magnesium 200 mg Tablet 200 mg PO WEEKLY RF: 0 turmeric 300 mg 600 mg PO DAILY RF: 0 Iron Complex 27 mg 1 tab PO Q OTHER DAY RF: 0 levothyroxine [Euthyrox] 88 mcg tablet 88 mcg PO DAILY RF: 0 L-Glutamine 500 mg capsule 500 mg PO BID PRN (Reason: increase immune function) RF: 0 econazole 1 % cream 1 applictn TOP BID PRN (Reason: Rash) RF: 0 mesalamine [Canasa] 1,000 mg suppository 1 gram AR BEDTIME Qty: 14 RF: 0 mesalamine [Lialda] 1.2 gram Tablet,Delayed Release (Dr/Ec) 1.2 g PO BID RF: 0 Referrals: Monica Collins DO [Primary Care Provider] - <Td Torres DO - Last Filed: 05/16/20 18:43> [facility] Dr Torres Co-Sign Statement: I was available for consultation during this patient's emergency department visit. This chart is signed by myself for administrative purposes only. I did not have direct contact with this patient during this visit. They were seen independently by the APC.
[2020-05-16 18:00] VITALS: BP 147/73; PULSE 70; RESP 18; O2SAT 95
--- NOTE | 2020-05-16 18:02 | PC.NURSE ---
PICC dressing changed with sterile technique, Biopatch in place. Pt tolerates well.
== END 2020-05-16 18:05 | disposition home or self-care (01) ==
PROVIDERS: Emergency Provider Nurse Practitioner; PCP Family Medicine
DX: T82.838A Hemorrhage due to vascular prosthetic devices, implants and grafts, initial encounter (principal)
CPT/HCPCS: 99281

== ENCOUNTER 2020-06-03 15:27 | Emergency (ER) | payer MEDICARE, SELFPAY ==
[2020-03-24 11:35] VITALS: BMI 36.8
[2020-06-03] VITALS (8 sets, daily range): BP systolic 118–157; BP diastolic 59–81; PULSE 62–84; RESP 20–25; TEMP 36.4; O2SAT 90–100; BMI 37.3
--- NOTE | 2020-06-03 16:28 | ED.NAVMDI ---
HPI - Nausea/Vomiting/Diarrhea General Chief complaint: Nausea/Vomiting/Diarrhea Stated complaint: states dehydrated, states need IV Time Seen by Provider: 06/03/20 16:28 Related Data Home Medications Medication Instructions Recorded Confirmed cholecalciferol (vitamin D3) 50 2,000 unit PO DAILY 04/23/18 03/24/20 mcg (2,000 unit) capsule Probiotic 1 cap PO DAILY 07/23/18 03/24/20 magnesium 200 mg PO WEEKLY 07/23/18 03/24/20 turmeric 600 mg PO DAILY 07/23/18 03/24/20 Iron Complex 1 tab PO Q OTHER DAY 09/10/18 03/24/20 mesalamine [Lialda] 1.2 g PO BID 09/30/18 03/24/20 methyl B12 1,000 mcg PO WEEKLY 02/02/20 03/24/20 L-Glutamine 500 mg PO BID PRN 03/24/20 03/24/20 econazole 1 applictn TOP BID PRN 03/24/20 03/24/20 levothyroxine [Euthyrox] 88 mcg PO DAILY 03/24/20 03/24/20 prednisone 5 mg tablet 5 mg PO DAILY 04/18/20 Previous Rx's Medication Instructions Recorded fluticasone propionate 50 1 spray INTRANASAL BID PRN #18.2 ml 10/04/19 mcg/actuation nasal spray,suspension mesalamine [Canasa] 1 gram [place] BEDTIME #14 each 03/25/20 famciclovir 250 mg tablet 250 mg PO BID PRN #30 tab 04/20/20 Allergies Allergy/AdvReac Type Severity Reaction Status Date / Time cefazolin [CEFAZOLIN] Allergy Severe rash Verified 06/03/20 15:50 levofloxacin [From LEVAQUIN] Allergy Mild Verified 06/03/20 15:50 morphine [MORPHINE] Allergy Mild STOPPED Verified 06/03/20 15:50 BREATHING. Patient History Medical History Acquired hypothyroidism Acute dehydration Anal cancer Anal squamous cell carcinoma (~02/2020) Anemia (10/13/13) C. 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 Syncope Ulcerative colitis Ulcerative colitis Ventral hernia without obstruction or gangrene (08/07/16) Surgical History Fractures History of neck surgery (~2006) History of nephrectomy (~08/2015) History of third molar tooth extraction History of tonsillectomy (~1955) History of tonsillectomy (~1956) History of tonsillectomy (~1959) Status post colonoscopy Family History Mother Congestive heart failure Father Liver failure Alzheimer's dementia Social History household members: spouse Smoking Status: Former smoker alcohol intake: never Smoking Status: Former smoker alcohol intake frequency: holidays/special occasions only Alcohol type: other Substance Use Type: does not use Exam Initial Vital Signs Initial Vital Signs: Vital Signs Temperature 97.5 F L 06/03/20 15:50 Pulse Rate 73 06/03/20 15:50 Respiratory Rate 25 H 06/03/20 15:50 Blood Pressure 118/59 L 06/03/20 15:50 Pulse Oximetry 96 06/03/20 15:50 Course Orders Ordered: ED Orders 06/03/20 16:23 Complete Blood Count AUTO DIFF Stat Comprehensive Metabolic Panel Stat Vital Signs Vital signs: Vital Signs - 8 hr 06/03/20 15:50 Temperature 97.5 F L Pulse Rate 73 Respiratory Rate 25 H Blood Pressure 118/59 L Pulse Oximetry 96 Discharge Plan Departure Prescriptions: No Action fluticasone propionate 50 mcg/actuation spray,suspension 1 spray Intranasal BID PRN (Reason: Congestion) Qty: 18.2 RF: 1 methyl B12 1 tab 1,000 mcg PO WEEKLY RF: 0 prednisone 5 mg tablet 5 mg PO DAILY RF: 0 famciclovir 250 mg tablet 250 mg PO BID PRN (Reason: herpes zoster) Qty: 30 RF: 1 cholecalciferol (vitamin D3) 2,000 unit capsule 2,000 unit PO DAILY RF: 0 Probiotic 20 billion cell Capsule 1 cap PO DAILY RF: 0 magnesium 200 mg Tablet 200 mg PO WEEKLY RF: 0 turmeric 300 mg 600 mg PO DAILY RF: 0 Iron Complex 27 mg 1 tab PO Q OTHER DAY RF: 0 levothyroxine [Euthyrox] 88 mcg tablet 88 mcg PO DAILY RF: 0 L-Glutamine 500 mg capsule 500 mg PO BID PRN (Reason: increase immune function) RF: 0 econazole 1 % cream 1 applictn TOP BID PRN (Reason: Rash) RF: 0 mesalamine [Canasa] 1,000 mg suppository 1 gram OK BEDTIME Qty: 14 RF: 0 mesalamine [Lialda] 1.2 gram Tablet,Delayed Release (Dr/Ec) 1.2 g PO BID RF: 0
--- NOTE | 2020-06-03 16:42 | PC.NURSE ---
Has rectal cancer, last chemo tx (-friday), last radiation (friday). Has had nausea/vomiting/diarrhea all week. Received fluids x2 from [facility] last week.
--- NOTE | 2020-06-03 17:25 | ED.NAVMDI ---
HPI - Nausea/Vomiting/Diarrhea <Guera Carter, [employer] - Last Filed: 06/04/20 12:11> General Chief complaint: Nausea/Vomiting/Diarrhea Stated complaint: states dehydrated, states need IV Time Seen by Provider: 06/03/20 16:28 Source: patient Mode of arrival: Ambulatory Limitations: no limitations History of Present Illness HPI Narrative: The patient is a 70-year-old male former smoker with history of rectal cancer who presents with a chief complaint dehydration. He states that he has had dozens of watery stools per day. He states that this has been ongoing for a while now, related to his radiation. He sees Dr. Quan for oncology. He states that he was at [facility] twice this week to get IV fluids. He states that he over fall feels very weak, dehydrated and cold. He states that he knows if he gets IV fluids he will feel better. He denies any fevers, abnormal muscle aches or chills. Denies any abdominal pain. He gets chemotherapy, through Friday and had his last radiation on Friday. He states he feels very cold. Related Data Home Medications Medication Instructions Recorded Confirmed cholecalciferol (vitamin D3) 50 2,000 unit PO WEEKLY 04/23/18 06/04/20 mcg (2,000 unit) capsule Probiotic 1 cap PO DAILY 07/23/18 06/04/20 turmeric 600 mg PO DAILY 07/23/18 06/04/20 Iron Complex 1 tab PO WEEKLY 09/10/18 06/04/20 mesalamine [Lialda] 1.2 g PO BID 09/30/18 06/04/20 methyl B12 1,000 mcg PO WEEKLY 02/02/20 06/04/20 L-Glutamine 500 mg PO DAILY 03/24/20 06/04/20 econazole 1 applictn TOP BID PRN 03/24/20 06/04/20 levothyroxine [Euthyrox] 88 mcg PO DAILY 03/24/20 06/04/20 prednisone 5 mg tablet 2.5 mg PO BID 04/18/20 06/04/20 ascorbic acid (vitamin C) 500 mg PO WEEKLY 06/04/20 06/04/20 diazepam 5 mg PO DAILY 06/04/20 06/04/20 geriatric [id number] 1 tab PO WEEKLY 06/04/20 06/04/20 [[facility] Senior] Previous Rx's Medication Instructions Recorded fluticasone propionate 50 1 spray INTRANASAL BID PRN #18.2 ml 10/04/19 mcg/actuation nasal spray,suspension famciclovir 250 mg tablet 250 mg PO BID PRN #30 tab 04/20/20 Allergies Allergy/AdvReac Type Severity Reaction Status Date / Time cefazolin [CEFAZOLIN] Allergy Severe rash Verified 06/04/20 13:26 levofloxacin [From LEVAQUIN] Allergy Mild Verified 06/04/20 13:26 morphine [MORPHINE] Allergy Mild STOPPED Verified 06/04/20 13:26 BREATHING. Review of Systems <ISAK Grimaldo - Last Filed: 06/04/20 12:11> Review of Systems Narrative: GENERAL: See HPI HEENT: Denies sinus pain, ear pain, sore throat, difficulty swallowing, dizziness. RESPIRATORY: Denies dyspnea, cough, wheezing, hemoptysis, sputum. CARDIOVASCULAR: Denies chest pain, palpitations, orthopnea, edema, GASTROINTESTINAL: See HPI : Denies dysuria, frequency, incontinence, hematuria, urinary retention. MUSCULOSKELETAL: denies weakness, joint pain, or bony pain SKIN: Denies rash, skin lesions, or other NEUROLOGIC: Denies weakness, headache, numbness, change in speech, confusion, seizures, incoordination. PSYCHIATRIC: No concerning psychosocial issues. 12 point review of systems is negative except for those stated above Patient History <CRISTOBAL Grimaldo- - Last Filed: 06/04/20 12:11> Medical History Acquired hypothyroidism Acute dehydration Anal cancer Anal squamous cell carcinoma (~02/2020) Anemia (10/13/13) C. 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 Syncope Ulcerative colitis Ulcerative colitis Ventral hernia without obstruction or gangrene (08/07/16) Surgical History Fractures History of neck surgery (~2006) History of nephrectomy (~08/2015) History of third molar tooth extraction History of tonsillectomy (~1955) History of tonsillectomy (~1956) History of tonsillectomy (~1959) Status post colonoscopy Family History Mother Congestive heart failure Father Liver failure Alzheimer's dementia Social History household members: spouse Smoking Status: Former smoker alcohol intake: never Smoking Status: Former smoker alcohol intake frequency: holidays/special occasions only Alcohol type: other Substance Use Type: does not use Exam <CRISTOBAL Grimaldo-BC - Last Filed: 06/04/20 12:11> Narrative Exam Narrative: GENERAL: This is a well-nourished, well-developed patient, in appears fatigued HEAD: Atraumatic. Normocephalic. No temporal or scalp tenderness. EYES: Pupils equal round and reactive. Extraocular motions intact. No scleral icterus. No injection or drainage. ENT: Nose without bleeding, purulent drainage or septal hematoma. Throat without erythema, tonsillar hypertrophy or exudate. Uvula midline. Airway patent. Dry mucous membranes noted. NECK: Trachea midline. No JVD or lymphadenopathy. Supple, nontender, no meningeal signs. CARDIOVASCULAR: Regular rate and rhythm RESPIRATORY: Clear to auscultation. Breath sounds equal bilaterally. No wheezes, rales, or rhonchi. No cough. No increased respiratory effort. No accessory muscle use GASTROINTESTINAL: Abdomen soft, non-tender, nondistended. No hepato-splenomegaly, or palpable masses. No guarding. Active 4 quadrants EXTREMITIES: No clubbing, cyanosis, or edema. No joint tenderness, effusion, or edema noted. BACK: Nontender without deformity or crepitance. No flank tenderness. NEURO: AOx3. SKIN: No rash or erythema on visible skin. Appears pale. Initial Vital Signs Initial Vital Signs: Vital Signs Temperature 97.5 F L 06/03/20 15:50 Pulse Rate 73 06/03/20 15:50 Respiratory Rate 25 H 06/03/20 15:50 Blood Pressure 118/59 L 06/03/20 15:50 Pulse Oximetry 96 06/03/20 15:50 <Aleksandar Rm MD - Last Filed: 06/09/20 02:51> Initial Vital Signs Initial Vital Signs: Vital Signs Temperature 97.5 F L 06/03/20 15:50 Pulse Rate 73 06/03/20 15:50 Respiratory Rate 25 H 06/03/20 15:50 Blood Pressure 118/59 L 06/03/20 15:50 Pulse Oximetry 96 06/03/20 15:50 Scores <ARMANI Grimaldo - Last Filed: 06/04/20 12:11> GCS Toni coma scale eye opening: Spontaneous Toni coma scale verbal response: Orientated Toni coma scale motor response: Obey commands Toni coma scale total score: 15 Course <ARMANI Grimaldo - Last Filed: 06/04/20 12:11> Orders Ordered: Discontinued Medications Sodium Chloride (Normal Saline 0.9%) 1,000 mls @ 1,000 mls/hr IV BOLUS ONE Stop: 06/03/20 18:22 Last Infusion: 06/03/20 18:57 Dose: 0 mls/hr Documented by: Admin: 06/03/20 17:33 Dose: 1,000 mls/hr Documented by: JACEK Sodium Chloride (Normal Saline 0.9%) 1,000 mls @ 1,000 mls/hr IV BOLUS ONE Stop: 06/03/20 20:34 Last Infusion: 06/03/20 21:01 Dose: 0 mls/hr Documented by: Admin: 06/03/20 19:41 Dose: 1,000 mls/hr Documented by: JACEK Vital Signs Vital signs: Vital Signs - 8 hr 06/03/20 15:50 06/03/20 16:21 06/03/20 16:24 Temperature 97.5 F L Pulse Rate 73 70 69 Respiratory Rate 25 H Blood Pressure 118/59 L 157/81 H Pulse Oximetry 96 97 95 06/03/20 17:37 06/03/20 18:00 06/03/20 18:30 Temperature Pulse Rate 63 62 69 Respiratory Rate Blood Pressure Pulse Oximetry 92 90 L 100 <Aleksandar Rm MD - Last Filed: 06/09/20 02:51> Orders Ordered: Discontinued Medications Sodium Chloride (Normal Saline 0.9%) 1,000 mls @ 1,000 mls/hr IV BOLUS ONE Stop: 06/03/20 18:22 Last Infusion: 06/03/20 18:57 Dose: 0 mls/hr Documented by: Admin: 06/03/20 17:33 Dose: 1,000 mls/hr Documented by: JACEK Sodium Chloride (Normal Saline 0.9%) 1,000 mls @ 1,000 mls/hr IV BOLUS ONE Stop: 06/03/20 20:34 Last Infusion: 06/03/20 21:01 Dose: 0 mls/hr Documented by: Admin: 06/03/20 19:41 Dose: 1,000 mls/hr Documented by: JACEK Vital Signs Vital signs: Vital Signs - 8 hr 06/03/20 15:50 06/03/20 16:21 06/03/20 16:24 Temperature 97.5 F L Pulse Rate 73 70 69 Respiratory Rate 25 H Blood Pressure 118/59 L 157/81 H Pulse Oximetry 96 97 95 06/03/20 17:37 06/03/20 18:00 06/03/20 18:30 Temperature Pulse Rate 63 62 69 Respiratory Rate Blood Pressure Pulse Oximetry 92 90 L 100 MDM - Nausea/Vomiting/Diarrhea <ARMANI Grimaldo - Last Filed: 06/04/20 12:11> Lab Data Result diagrams: 06/03/20 17:10 06/03/20 17:10 Labs: Lab Results 06/03/20 06/03/20 Range/Units 17:10 17:10 WBC 2.9 L (4.5-11.0) X10^3/uL RBC 3.51 L (4.5-5.9) X10^6/uL Hgb 9.3 L (13.5-17.5) g/dL Hct 28.3 L (41-53) % MCV 80.5 (80-100) fL MCH 26.4 (26-34) PG MCHC 32.9 (30-36) % RDW 16.0 H (11.6-14.8) % Plt Count 110 L (150-400) X10^3/uL Neut % (Auto) 78.7 H (50-75) % Lymph % (Auto) 13.9 L (25-40) % [place] % (Auto) 5.7 (3-14) % Eos % (Auto) 1.2 L (2-4) % Baso % (Auto) 0.5 (0-2) % Neut # (Auto) 2300 (7366-0353) /uL Lymph # (Auto) 400 L (2650-8750) /uL [place] # (Auto) 200 (0-900) /uL Eos # (Auto) 0 (0-450) /uL Baso # (Auto) 0 (0-100) /uL Sodium 137 (137-145) mmol/L Potassium 4.1 (3.4-5.1) mmol/L Chloride 101 (98-107) mmol/L Carbon Dioxide 32 (22-32) mmol/L BUN 15 (9-20) mg/dL Creatinine 1.49 H (0.66-1.25) mg/dL Estimated GFR 46.6 L (>60) mL/min BUN/Creatinine Ratio 10.1 (6-22) Glucose 102 (80-110) mg/dL Calcium 9.0 (8.4-10.2) mg/dL Total Bilirubin 0.4 (0.2-1.3) mg/dL AST 26 (17-59) IU/L ALT 23 (<50) IU/L Alkaline Phosphatase 65 (38-126) U/L Total Protein 6.9 (6.3-8.2) g/dL Albumin 3.7 (3.5-5.0) g/dL Globulin 3.2 (1.7-4.1) g/dL Albumin/Globulin Ratio 1.2 (1.0-2.8) MDM Narrative Medical decision making narrative: A 70-year-old male receiving concurrent chemotherapy and radiation for rectal cancer. He presents with a chief complaint of dehydration. Basic lab work was done, he was noted to have a slight increase in his creatinine from 1.25 in April to 1.49 today. He was noted to be anemic, at 9.3/28.3. His white blood cell count is 2.9 today. The patient is sees Dr. Quan with [facility], so I called and spoke with him regarding the patient's lab work and presentation. Dr. Quan discussed that this is likely a process of receiving concurrent chemotherapy and radiation. He states that as long as the patient is afebrile, he is okay to be rehydrated in go home. The patient received IV fluid in the emergency department, to a total of 2 L. His orthostatics were negative. I discussed at length the importance of follow-up with primary care provider as well as his hematology oncology provider. Patient has no questions or concerns upon discharge and states understanding return precautions as well as follow-up care. Discussed that patient should come back to ER for inability keep down fluids, acute concerns such as fever etcetera. <Aleksandar Rm MD - Last Filed: 06/09/20 02:51> Lab Data Labs: Lab Results 06/03/20 06/03/20 Range/Units 17:10 17:10 WBC 2.9 L (4.5-11.0) X10^3/uL RBC 3.51 L (4.5-5.9) X10^6/uL Hgb 9.3 L (13.5-17.5) g/dL Hct 28.3 L (41-53) % MCV 80.5 (80-100) fL MCH 26.4 (26-34) PG MCHC 32.9 (30-36) % RDW 16.0 H (11.6-14.8) % Plt Count 110 L (150-400) X10^3/uL Neut % (Auto) 78.7 H (50-75) % Lymph % (Auto) 13.9 L (25-40) % [place] % (Auto) 5.7 (3-14) % Eos % (Auto) 1.2 L (2-4) % Baso % (Auto) 0.5 (0-2) % Neut # (Auto) 2300 (3507-6222) /uL Lymph # (Auto) 400 L (9384-1542) /uL [place] # (Auto) 200 (0-900) /uL Eos # (Auto) 0 (0-450) /uL Baso # (Auto) 0 (0-100) /uL Sodium 137 (137-145) mmol/L Potassium 4.1 (3.4-5.1) mmol/L Chloride 101 (98-107) mmol/L Carbon Dioxide 32 (22-32) mmol/L BUN 15 (9-20) mg/dL Creatinine 1.49 H (0.66-1.25) mg/dL Estimated GFR 46.6 L (>60) mL/min BUN/Creatinine Ratio 10.1 (6-22) Glucose 102 (80-110) mg/dL Calcium 9.0 (8.4-10.2) mg/dL Total Bilirubin 0.4 (0.2-1.3) mg/dL AST 26 (17-59) IU/L ALT 23 (<50) IU/L Alkaline Phosphatase 65 (38-126) U/L Total Protein 6.9 (6.3-8.2) g/dL Albumin 3.7 (3.5-5.0) g/dL Globulin 3.2 (1.7-4.1) g/dL Albumin/Globulin Ratio 1.2 (1.0-2.8) Discharge Plan Departure Patient Disposition: Home Clinical Impression: Acute dehydration, Creatinine elevation Diarrhea Qualifiers: Diarrhea type: unspecified type Qualified Code(s): R19.7 - Diarrhea, unspecified Instructions: Creatinine, DI for Dehydration -- Adult Activity Restrictions/Additional Instructions: Thank you for trusting us with your care today. As discussed I spoke with Dr. Quan. Please follow-up with him in the next few days. Please also follow-up with primary care provider. Today your lab work shows that your anemic, which is likely related to your cancer and its treatment We also found that your creatinine was slightly elevated, which shows slightly decreased kidney function. This is likely related to your dehydration. Please come back to the emergency department for any acute concerns including inability keep down fluid, fevers etcetera Prescriptions: No Action fluticasone propionate 50 mcg/actuation spray,suspension 1 spray Intranasal BID PRN (Reason: Congestion) Qty: 18.2 RF: 1 methyl B12 1 tab 1,000 mcg PO WEEKLY RF: 0 prednisone 5 mg tablet 2.5 mg PO BID RF: 0 famciclovir 250 mg tablet 250 mg PO BID PRN (Reason: herpes zoster) Qty: 30 RF: 1 cholecalciferol (vitamin D3) 2,000 unit capsule 2,000 unit PO WEEKLY RF: 0 Probiotic 20 billion cell Capsule 1 cap PO DAILY RF: 0 turmeric 300 mg 600 mg PO DAILY RF: 0 Iron Complex 27 mg 1 tab PO WEEKLY RF: 0 levothyroxine [Euthyrox] 88 mcg tablet 88 mcg PO DAILY RF: 0 L-Glutamine 500 mg capsule 500 mg PO DAILY RF: 0 econazole 1 % cream 1 applictn TOP BID PRN (Reason: Rash) RF: 0 mesalamine [Lialda] 1.2 gram Tablet,Delayed Release (Dr/Ec) 1.2 g PO BID RF: 0 diazepam 5 mg tablet 5 mg PO DAILY RF: 0 ascorbic acid (vitamin C) 500 mg Tablet 500 mg PO WEEKLY RF: 0 [facility] Senior Tablet 1 tab PO WEEKLY RF: 0 Referrals: Monica Collins DO [Primary Care Provider] - <Aleksandar Rm MD - Last Filed: 06/09/20 02:51> Cosign ED Attending Cosignature Attestation: I was immediately available in the department for consultation. This documentation has been reviewed and I agree with assessment and plan. Supervised by Aleksandar Rm MD
[2020-06-03] MEDS: SODIUM CHLORIDE 0.9% 1,000 ML 1000 ML IV ×2 (17:33→19:41)
[2020-06-03 18:19] LABS: Add Manual Diff / Slide Review NO; Basophils Absolute Auto 0 /uL (0-100); Basophils Percent Auto 0.5 % (0-2); Eosinophils Absolute Auto 0 /uL (0-450); Eosinophils Percent Auto 1.2 % (2-4); Hematocrit 28.3 % (41-53); Hemoglobin 9.3 g/dL (13.5-17.5); Lymphocytes Absolute Auto 400 /uL (1100-4500); Lymphocytes Percent Auto 13.9 % (25-40); Mean Corpuscular HGB Conc 32.9 % (30-36); Mean Corpuscular Hemoglobin 26.4 PG (26-34); Mean Corpuscular Volume 80.5 fL (80-100); Monocytes Absolute Auto 200 /uL (0-900); Monocytes Percent Auto 5.7 % (3-14); Neutrophils Absolute Auto 2300 /uL (1500-7000); Neutrophils Percent Auto 78.7 % (50-75); Platelet Count 110 X10^3/uL (150-400); Red Blood Cell Count 3.51 X10^6/uL (4.5-5.9); White Blood Cell Count 2.9 X10^3/uL (4.5-11.0)
[2020-06-03 18:37] LABS: Alanine Aminotransferase 23 IU/L (<50); Albumin 3.7 g/dL (3.5-5.0); Albumin Globulin Ratio 1.2 (1.0-2.8); Alkaline Phosphatase 65 U/L (38-126); Aspartate Aminotransferase 26 IU/L (17-59); BUN Creatinine Ratio 10.1 (6-22); Bilirubin Total 0.4 mg/dL (0.2-1.3); Blood Urea Nitrogen 15 mg/dL (9-20); Carbon Dioxide 32 mmol/L (22-32); Chloride 101 mmol/L (98-107); Estimated Glomerular Filt Rate 46.6 mL/min (>60); Globulin 3.2 g/dL (1.7-4.1); Glucose 102 mg/dL (80-110); HEMOLYSIS < 15 (0-50); Potassium 4.1 mmol/L (3.4-5.1); Sodium 137 mmol/L (137-145); Total Protein 6.9 g/dL (6.3-8.2)
== END 2020-06-03 21:02 | disposition home or self-care (01) ==
PROVIDERS: Emergency Medicine; Emergency Provider Nurse Practitioner Family; PCP Family Medicine
DX: E86.0 Dehydration (principal); R79.89 Other specified abnormal findings of blood chemistry; R19.7 Diarrhea, unspecified; E03.9 Hypothyroidism, unspecified; E66.9 Obesity, unspecified; Z68.37 Body mass index [BMI] 37.0-37.9, adult; C20 Malignant neoplasm of rectum
CPT/HCPCS: 36415; 80053; 85025; 96360; 96361; 99281; 99284

== ENCOUNTER 2020-06-04 11:00 | Inpatient (IN) | payer MEDICARE, SELFPAY ==
[2020-03-24 11:35] VITALS: BMI 36.8
[2020-06-04] VITALS (17 sets, daily range): BP systolic 108–160; BP diastolic 56–74; PULSE 69–80; RESP 17–22; TEMP 34.7–36.6; O2SAT 89–100; BMI 35.9
--- NOTE | 2020-06-04 11:28 | ED_ITS ---
HPI - Nausea/Vomiting/Diarrhea General Chief complaint: Nausea/Vomiting/Diarrhea Stated complaint: Weakness/diarrhea Time Seen by Provider: 06/04/20 11:28 Source: patient and EMS Mode of arrival: EMS Limitations: no limitations History of Present Illness HPI Narrative: 70-year-old gentleman with the recent diagnosis of rectal cancer currently receiving chemotherapy and radiation. Followed by Dr. Quan for Oncology. Was seen yesterday with similar complaints noted to have a slight increase in creatinine from 1.25-1.49. Slightly pancytopenic secondary to the chemotherapy. Care is reviewed with Dr. Quan who felt that the patient could be safe to be discharged home after hydration and this is what the patient chose to do. Patient returns today continuing to complain of vomiting, general malaise and global weakness. He is having trouble even standing at this point due to his overall weakness. He complains of severe rectal pain and burning from his radiation therapy. Describes no specific abdominal pain, he has been vomiting, he does not describe a headache, fevers, chills, cough, chest pain, dyspnea. He reports that he is so unsteady even standing holding onto a counter to transfer to the toilet that he is concerned that he will fall. Related Data Home Medications Medication Instructions Recorded Confirmed cholecalciferol (vitamin D3) 50 2,000 unit PO WEEKLY 04/23/18 06/04/20 mcg (2,000 unit) capsule Probiotic 1 cap PO DAILY 07/23/18 06/04/20 turmeric 600 mg PO DAILY 07/23/18 06/04/20 Iron Complex 1 tab PO WEEKLY 09/10/18 06/04/20 mesalamine [Lialda] 1.2 g PO BID 09/30/18 06/04/20 methyl B12 1,000 mcg PO WEEKLY 02/02/20 06/04/20 L-Glutamine 500 mg PO DAILY 03/24/20 06/04/20 econazole 1 applictn TOP BID PRN 03/24/20 06/04/20 levothyroxine [Euthyrox] 88 mcg PO DAILY 03/24/20 06/04/20 prednisone 5 mg tablet 2.5 mg PO BID 04/18/20 06/04/20 ascorbic acid (vitamin C) 500 mg PO WEEKLY 06/04/20 06/04/20 diazepam 5 mg PO DAILY 06/04/20 06/04/20 geriatric [id number] 1 tab PO WEEKLY 06/04/20 06/04/20 [[facility]] Previous Rx's Medication Instructions Recorded fluticasone propionate 50 1 spray INTRANASAL BID PRN #18.2 ml 10/04/19 mcg/actuation nasal spray,suspension famciclovir 250 mg tablet 250 mg PO BID PRN #30 tab 04/20/20 Allergies Allergy/AdvReac Type Severity Reaction Status Date / Time cefazolin [CEFAZOLIN] Allergy Severe rash Verified 06/04/20 13:26 levofloxacin [From LEVAQUIN] Allergy Mild Verified 06/04/20 13:26 morphine [MORPHINE] Allergy Mild STOPPED Verified 06/04/20 13:26 BREATHING. Review of Systems Review of Systems Narrative: Remainder of review of systems including constitutional, ENT, cardiovascular, respiratory, GI, , musculoskeletal, skin, neurologic and psyc hiatric systems reviewed and are unremarkable except as noted in HPI. Patient History Medical History Acquired hypothyroidism Acute dehydration Anal cancer Anal squamous cell carcinoma (~02/2020) Anemia (10/13/13) C. 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 Syncope Ulcerative colitis Ulcerative colitis Ventral hernia without obstruction or gangrene (08/07/16) Surgical History Fractures History of neck surgery (~2006) History of nephrectomy (~08/2015) History of third molar tooth extraction History of tonsillectomy (~1955) History of tonsillectomy (~1956) History of tonsillectomy (~1959) Status post colonoscopy Family History Mother Congestive heart failure Father Liver failure Alzheimer's dementia Social History household members: spouse Smoking Status: Former smoker alcohol intake: never Smoking Status: Former smoker alcohol intake frequency: holidays/special occasions only Alcohol type: other Substance Use Type: does not use Exam Narrative Exam Narrative: General: Pale, weak, acutely ill but able to cooperate with exam HEENT: Moist mucous membranes, normal sclera with reactive pupils, Neck: No JVD, supple Respiratory: Lungs are clear to auscultation, no wheezing no rales no rhonchi. Full and symmetrical air movement Cardiac: Regular rate and rhythm no murmurs no bruits Abdomen: Soft nontender good bowel tones, no flank pain Skin: Warm and dry, no rashes Neurologic: Globally weak, Grossly neurologically intact with no obvious asymmetries or abnormalities Extremities: No trauma, well perfused Psych: Cooperative, appropriate insight and affect Initial Vital Signs Initial Vital Signs: Vital Signs Pulse Rate 80 06/04/20 11:06 Pulse Oximetry 97 06/04/20 11:06 Course Orders Ordered: Acetaminophen (Acetaminophen 325 Mg Tablet) 650 mg PO Q6HR PRN PRN Reason: Fever/Mild Pain (1-3) Last Admin: 06/05/20 01:43 Dose: 650 mg Documented by: Admin: 06/04/20 20:31 Dose: 650 mg Documented by: MIGUEL Al Hydrox/Mg Hydrox/Simethicone (Mag Hydrox/Alum/Simeth 30 Ml Udc) 30 ml PO Q6HR PRN PRN Reason: Dyspepsia Ascorbic Acid (Ascorbic Acid 500 Mg Tablet) 500 mg PO WEEKLY [facility] Bisacodyl (Bisacodyl 10 Mg Supp) 10 mg [place] DAILY PRN PRN Reason: Constipation Calcium Carbonate (Calcium Carbonate 500 Mg Tab) 1,000 mg PO Q4HR PRN PRN Reason: Dyspepsia Docusate Sodium (Docusate 100 Mg Capsule) 100 mg PO BID [facility] Last Admin: 06/04/20 20:33 Dose: Not Given Documented by: MIGUEL Fluticasone Propionate (Fluticasone 120 [place]/16 Gm [place].Susp) 1 spray NASAL BID PRN PRN Reason: Congestion Heparin Sodium (Porcine) (Heparin Flush (Cl/Picc/Mid-Line) 50 Unit/5 Ml Syringe) 50 unit IV PRN PRN PRN Reason: Flush Last Admin: 06/05/20 06:00 Dose: 50 unit Documented by: Admin: 06/05/20 01:44 Dose: 50 unit Documented by: Admin: 06/04/20 20:20 Dose: 50 unit Documented by: MIGUEL Hydromorphone HCl (Hydromorphone 0.5 Mg Inj) 0.5 mg IV Q6HR PRN PRN Reason: Pain, Moderate (4-6) Last Admin: 06/05/20 01:43 Dose: 0.5 mg Documented by: Admin: 06/04/20 20:21 Dose: 0.5 mg Documented by: MIGUEL Influenza Virus Vaccine (Influenza Hd Vaccine 0.7 Ml Syringe) 0.7 ml IM .ONCE ONE Stop: 06/05/20 09:01 Lactobacillus Acidophilus (Lactobacillus Acidophilus Tablet) 1 each PO DAILY [facility] Levothyroxine Sodium (Levothyroxine 88 Mcg Tablet) 88 mcg PO DAILY [facility] Lidocaine HCl (Lidocaine Jelly 2% 5 Ml) 1 applic TOP Q8H PRN PRN Reason: rectal pain Last Admin: 06/04/20 20:17 Dose: 1 applic Documented by: MIGUEL Loperamide HCl (Loperamide 2 Mg Capsule) 2 mg PO QID PRN PRN Reason: Diarrhea Last Admin: 06/04/20 20:15 Dose: 2 mg Documented by: MIGUEL Magnesium Hydroxide (Magnesium Hydroxide 30 Ml Udc) 30 ml PO DAILY PRN PRN Reason: Constipation Mesalamine (Mesalamine 400 Mg Cap.Drtab.) 1,200 mg PO BID [facility] Last Admin: 06/04/20 20:56 Dose: Not Given Documented by: ANDREA Naloxone HCl (Naloxone 0.4 Mg/Ml Vial) 0.2 mg IV Q2MIN PRN PRN Reason: Opiate Reversal Non-Formulary Medication (Econazole) 1 applictn TOP BID PRN PRN Reason: Rash Non-Formulary Medication (Famciclovir) 250 mg PO BID PRN PRN Reason: herpes zoster Non-Formulary Medication (Iron Complex) 1 tab PO WEEKLY [facility] Non-Formulary Medication (Methyl B12) 1,000 mcg PO WEEKLY [facility] Ondansetron HCl (Ondansetron 4 Mg/2 Ml Inj) 4 mg IV Q8HR PRN PRN Reason: Nausea And Vomiting Oxycodone/Acetaminophen (Oxycodone/Acetaminophen 5/325 Tablet) 1 tab PO Q4HR PRN PRN Reason: Pain, Moderate (4-6) Last Admin: 06/05/20 06:00 Dose: 1 tab Documented by: Admin: 06/05/20 01:09 Dose: 1 tab Documented by: ISAAK Prednisone (Prednisone 5 Mg Tablet) 2.5 mg PO BID [facility] Last Admin: 06/04/20 21:32 Dose: 2.5 mg Documented by: ANDREA Promethazine HCl (Promethazine 12.5 Mg Supp) 12.5 mg [place] Q6HR PRN PRN Reason: Nausea And Vomiting Sodium Chloride (Sodium Chloride 0.9% Flush) 10 ml IV PRN PRN PRN Reason: Flush Last Admin: 06/05/20 06:00 Dose: 10 ml Documented by: ISAAK Discontinued Medications Enoxaparin Sodium (Enoxaparin 40 Mg/0.4 Ml Syringe) 40 mg SUBCUT DAILY [facility] Hydromorphone HCl (Hydromorphone 0.5 Mg Inj) 0.5 mg IV Q15MIN PRN PRN Reason: Pain, Last Admin: 06/04/20 15:13 Dose: 0.5 mg Documented by: RIN Sodium Chloride (Normal Saline 0.9%) 1,000 mls @ 1,000 mls/hr IV BOLUS ONE Stop: 06/04/20 12:56 Last Infusion: 06/04/20 15:40 Dose: 0 mls/hr Documented by: Admin: 06/04/20 12:21 Dose: 1,000 mls/hr Documented by: RIN Magnesium Sulfate (Magnesium Sulfate) 2 gm in 50 mls @ 25 mls/hr IV NOW ONE Stop: 06/04/20 14:44 Last Infusion: 06/04/20 15:40 Dose: 0 mls/hr Documented by: RIN Cosigned by: MMINOR Admin: 06/04/20 13:02 Dose: 25 mls/hr Documented by: RIN Cosigned by: MARIA LUZ Lactated Ringer's (Lactated Ringers) 1,000 mls @ 1,000 mls/hr IV BOLUS ONE Stop: 06/04/20 13:44 Last Infusion: 06/04/20 23:32 Dose: 0 mls/hr Documented by: Infusion: 06/04/20 16:35 Dose: 500 mls/hr Documented by: Infusion: 06/04/20 15:40 Dose: 500 mls/hr Documented by: Infusion: 06/04/20 15:14 Dose: 0 mls/hr Documented by: Admin: 06/04/20 15:14 Dose: 1,000 mls/hr Documented by: RIN Ondansetron HCl (Ondansetron 4 Mg/2 Ml Inj) 4 mg IV NOW ONE Stop: 06/04/20 11:58 Last Admin: 06/04/20 12:21 Dose: 4 mg Documented by: RIN Potassium Chloride (Potassium Chloride 20 Meq Tab) 40 meq PO NOW ONE Stop: 06/04/20 16:44 Last Admin: 06/04/20 17:17 Dose: 40 meq Documented by: ANDREA Vital Signs Vital signs: Vital Signs - 8 hr 06/04/20 11:06 06/04/20 11:07 06/04/20 11:19 Temperature 97.9 F Pulse Rate 80 78 78 Respiratory Rate 18 Blood Pressure 160/74 H 160/74 H Pulse Oximetry 97 97 98 06/04/20 11:56 06/04/20 12:00 06/04/20 12:30 Temperature Pulse Rate 74 74 71 Respiratory Rate Blood Pressure 145/65 H Pulse Oximetry 97 92 06/04/20 12:31 06/04/20 13:00 06/04/20 13:06 Temperature Pulse Rate 69 74 73 Respiratory Rate Blood Pressure 119/56 L 123/60 Pulse Oximetry 97 97 99 06/04/20 13:30 06/04/20 14:00 06/04/20 14:44 Temperature Pulse Rate 75 74 Respiratory Rate Blood Pressure 125/58 L 119/56 L Pulse Oximetry 98 98 98 MDM - Nausea/Vomiting/Diarrhea Medical Records Attestation: I reviewed the patient's medical records. Lab Data Attestation: I reviewed the patient's lab results. Result diagrams: 06/05/20 06:00 06/05/20 06:00 Labs: Lab Results 06/04/20 06/04/20 06/04/20 Range/Units 12:00 12:00 12:00 WBC 1.7 L* (4.5-11.0) X10^3/uL RBC 3.19 L (4.5-5.9) X10^6/uL Hgb 8.5 L (13.5-17.5) g/dL Hct 25.6 L (41-53) % MCV 80.2 (80-100) fL MCH 26.5 (26-34) PG MCHC 33.0 (30-36) % RDW 16.2 H (11.6-14.8) % Plt Count 73 L (150-400) X10^3/uL Neut % (Auto) Not Reportable Lymph % (Auto) Not Reportable [place] % (Auto) Not Reportable Eos % (Auto) Not Reportable Baso % (Auto) Not Reportable Lymph # (Auto) Not Reportable [place] # (Auto) Not Reportable Baso # (Auto) Not Reportable Total Counted 50 Seg Neutrophils % 76.0 H (38-70) % Band Neutrophils % 4.0 (3-7) % Lymphocytes % (Manual) 10.0 L (25-45) % Monocytes % (Manual) 10.0 (2-11) % Neutrophils # (Manual) 1360 L (0651-3183) /uL RBC Morphology See below Anisocytosis 1+ H Sodium 136 L (137-145) mmol/L Potassium 3.3 L (3.4-5.1) mmol/L Chloride 104 (98-107) mmol/L Carbon Dioxide 30 (22-32) mmol/L BUN 12 (9-20) mg/dL Creatinine 1.25 (0.66-1.25) mg/dL Estimated GFR 57.1 L (>60) mL/min BUN/Creatinine Ratio 9.6 (6-22) Glucose 99 (80-110) mg/dL Lactate 0.8 (0.7-2.1) mmol/L Calcium 8.5 (8.4-10.2) mg/dL Magnesium (1.6-2.3) mg/dL Total Bilirubin 0.4 (0.2-1.3) mg/dL AST 21 (17-59) IU/L ALT 20 (<50) IU/L Alkaline Phosphatase 60 (38-126) U/L Total Protein 6.1 L (6.3-8.2) g/dL Albumin 3.2 L (3.5-5.0) g/dL Globulin 2.9 (1.7-4.1) g/dL Albumin/Globulin Ratio 1.1 (1.0-2.8) Lipase (23-300) U/L Urine Color Urine Appearance Urine pH (4.5-8.0) Ur Specific [place] (1.000-1.035) Urine Protein (Negative) Urine Glucose (UA) (Negative) g/dL Urine Ketones (NEGATIVE) Urine Occult Blood (Negative) Urine Nitrate (Negative) Urine Bilirubin (NEGATIVE) Ur Bilirubin Confirm (Negative) Urine Urobilinogen (0.2) E.U./dL Ur Leukocyte Esterase (NEGATIVE) Urine RBC (0-5/HPF) Urine WBC (0-5/HPF) Ur Squamous Epith Cells (0-5/HPF) Amorphous Sediment Urine Bacteria (None) Granular Casts (None) Urine Mucus (Negative) Ur Culture Indicated? COVID-19 PCR (Negative) 06/04/20 06/04/20 06/04/20 Range/Units 12:00 12:00 14:47 WBC (4.5-11.0) X10^3/uL RBC (4.5-5.9) X10^6/uL Hgb (13.5-17.5) g/dL Hct (41-53) % MCV (80-100) fL MCH (26-34) PG MCHC (30-36) % RDW (11.6-14.8) % Plt Count (150-400) X10^3/uL Neut % (Auto) Lymph % (Auto) [place] % (Auto) Eos % (Auto) Baso % (Auto) Lymph # (Auto) [place] # (Auto) Baso # (Auto) Total Counted Seg Neutrophils % (38-70) % Band Neutrophils % (3-7) % Lymphocytes % (Manual) (25-45) % Monocytes % (Manual) (2-11) % Neutrophils # (Manual) (6595-8587) /uL RBC Morphology Anisocytosis Sodium (137-145) mmol/L Potassium (3.4-5.1) mmol/L Chloride (98-107) mmol/L Carbon Dioxide (22-32) mmol/L BUN (9-20) mg/dL Creatinine (0.66-1.25) mg/dL Estimated GFR (>60) mL/min BUN/Creatinine Ratio (6-22) Glucose (80-110) mg/dL Lactate (0.7-2.1) mmol/L Calcium (8.4-10.2) mg/dL Magnesium 1.5 L (1.6-2.3) mg/dL Total Bilirubin (0.2-1.3) mg/dL AST (17-59) IU/L ALT (<50) IU/L Alkaline Phosphatase (38-126) U/L Total Protein (6.3-8.2) g/dL Albumin (3.5-5.0) g/dL Globulin (1.7-4.1) g/dL Albumin/Globulin Ratio (1.0-2.8) Lipase 48 (23-300) U/L Urine Color Yellow Urine Appearance Clear Urine pH 5.5 (4.5-8.0) Ur Specific [place] 1.020 (1.000-1.035) Urine Protein Trace H (Negative) Urine Glucose (UA) Negative (Negative) g/dL Urine Ketones 1+ H (NEGATIVE) Urine Occult Blood Negative (Negative) Urine Nitrate Negative (Negative) Urine Bilirubin 1+ H (NEGATIVE) Ur Bilirubin Confirm Negative (Negative) Urine Urobilinogen 0.2 (0.2) E.U./dL Ur Leukocyte Esterase Negative (NEGATIVE) Urine RBC None seen (0-5/HPF) Urine WBC 0-1/hpf (0-5/HPF) Ur Squamous Epith Cells 1-5 /hpf (0-5/HPF) Amorphous Sediment 1+ Urine Bacteria None seen (None) Granular Casts 5-10/lpf (None) Urine Mucus 1+ H (Negative) Ur Culture Indicated? Cult not indicated COVID-19 PCR Negative (Negative) MDM Narrative Medical decision making narrative: 70-year-old gentleman returning for continued vomiting and worsening global weakness as well as severe rectal pain from radiation treatment. Labs do show developing pancytopenia from his chemotherapy and hypo magnesemia. After 2 L of fluid and magnesium supplementation he really feels no difference and truly does have difficulty even supporting himself sitting up due to his global weakness. In light of his vomiting diarrhea, chemotherapy and radiation side effects including multiple ER visits and require multiple L of IV fluid due to the nausea from the chemo over the last week, will plan on observation admit. He is very adamant that he is not going to proceed with the radiation therapy scheduled for Friday and beyond. Will have him notify Dr. Quan and the radiation oncology team. Care is reviewed with Dr. Sierra and patient is admitted observation status for weakness related to chemotherapy and radiation Discharge Plan Departure Patient Disposition: Admitted as Observation Clinical Impression: Acute dehydration, Rectal cancer Diarrhea Qualifiers: Diarrhea type: unspecified type Qualified Code(s): R19.7 - Diarrhea, unspecified Admit Date/Time: 06/04/20 15:50 Admit Provider: Linda Sierra
[2020-06-04] MEDS: ONDANSETRON 4 MG/2 ML INJ IV (12:21)
[2020-06-04] MEDS: SODIUM CHLORIDE 0.9% 1,000 ML 1000 ML IV (12:21)
[2020-06-04 12:25] LABS: Hematocrit 25.6 % (41-53); Hemoglobin 8.5 g/dL (13.5-17.5); Mean Corpuscular Hemoglobin 26.5 PG (26-34); Mean Corpuscular Volume 80.2 fL (80-100); Platelet Count 73 X10^3/uL (150-400); Red Blood Cell Count 3.19 X10^6/uL (4.5-5.9); Red Cell Distribution Width 16.2 % (11.6-14.8)
[2020-06-04 12:30] LABS: Alanine Aminotransferase 20 IU/L (<50); Albumin 3.2 g/dL (3.5-5.0); Albumin Globulin Ratio 1.1 (1.0-2.8); Alkaline Phosphatase 60 U/L (38-126); Aspartate Aminotransferase 21 IU/L (17-59); BUN Creatinine Ratio 9.6 (6-22); Bilirubin Total 0.4 mg/dL (0.2-1.3); Blood Urea Nitrogen 12 mg/dL (9-20); Calcium 8.5 mg/dL (8.4-10.2); Carbon Dioxide 30 mmol/L (22-32); Chloride 104 mmol/L (98-107); Estimated Glomerular Filt Rate 57.1 mL/min (>60); Globulin 2.9 g/dL (1.7-4.1); Glucose 99 mg/dL (80-110); HEMOLYSIS < 15 (0-50); Lipase 48 U/L (23-300); Magnesium 1.5 mg/dL (1.6-2.3); Potassium 3.3 mmol/L (3.4-5.1); Sodium 136 mmol/L (137-145); Total Protein 6.1 g/dL (6.3-8.2)
[2020-06-04 12:45] LABS: Add Manual Diff / Slide Review YES; White Blood Cell Count 1.7 X10^3/uL (4.5-11.0)
[2020-06-04 12:53] LABS: COVID19 -Nasal RAPID Negative (Negative)
[2020-06-04 12:54] LABS: Lactate (Lactic Acid) 0.8 mmol/L (0.7-2.1)
[2020-06-04] MEDS: MAGNESIUM SULFATE 2 GM/50 ML PIGGYBACK IV (13:02)
[2020-06-04 13:03] LABS: Neutrophils Absolute Manual 1360 /uL (3000-5900); Total Cells Counted 50
[2020-06-04 13:04] LABS: Anisocytosis 1+
[2020-06-04 15:08] LABS: Bacteria Urine None Seen; RBC Urine None Seen (0-5/HPF)
[2020-06-04] MEDS: HYDROMORPHONE 0.5 MG INJ IV ×2 (15:13→20:21)
[2020-06-04 15:14] LABS: Appearance Urine UA CLEAR; Bilirubin Urine UA 1+ (NEGATIVE); Color Urine UA YELLOW; Glucose Urine UA NEGATIVE (Negative); Ketones Urine UA 1+ (NEGATIVE); Leukocyte Esterase Urine UA NEGATIVE (NEGATIVE); Nitrite Urine UA NEGATIVE (Negative); Occult Blood Urine UA NEGATIVE (Negative); Protein Urine UA TRACE (Negative); Urobilinogen Urine UA 0.2 E.U./dL (0.2); pH Urine UA 5.5 (4.5-8.0)
[2020-06-04] MEDS: LACTATED RINGERS 1,000 ML 1000 ML IV (15:14)
[2020-06-04 15:27] LABS: Amorphous Sediment Urine 1+; Culture Indicated Urine Cult Not Indicated; Granular Casts Urine 5-10/LPF; Ictotest Urine Negative (Negative); Mucus Urine 1+ (Negative); Squamous Epithelial Cell Urine 1-5 /HPF (0-5/HPF); WBC Urine 0-1/HPF (0-5/HPF)
[2020-06-04] MEDS: POTASSIUM CHLORIDE 20 MEQ TAB 40 MEQ PO (17:17)
--- NOTE | 2020-06-04 18:39 | PM.HP.1 ---
History of Present Illness History of Present Illness Date Patient Seen: 06/04/20 Chief complaint: Weakness/diarrhea Narrative: Aleksandar Bay is a 70-year-old male with past medical history significant for ulcerative colitis, adrenal insufficiency, hypothyroidism, and recent diagnosis of locally advanced anal squamous cell carcinoma who presented to the ED due to rectal pain and generalized weakness. The patient was seen and discharged from [facility] for rectal bleeding thought to be possible UC flare with scheduled follow-up and colonscopy with GI Dr. Lebron at [facility] in mid March. He was found to have a partially obstructing mass in anus/rectum and was diagnosed with locally advanced anal squamous cell carcinoma. He recently started chemotherapy on 05/31 with 5 FU and mitomycin C. He is concurrently undergoing radiation with Dr. Beasley and has received 6 rounds thus far. He reports he is not eager to continue pursue radiation. The patient was seen in ED yesterday as well for dehydration and mild ANA (creatinine baseline 1.1. elevated to 1.4 and now back down to 1.2) in which he received IV fluids and was discharged home. He presents to the ED with persistent and severe rectal pain and he reports progressive weakness over the last 1 year but worse the last 3 days. He currently endorses mild headache, severe diarrhea in which anything he eats goes right through him, tenesmus and rectal pain controlled now with IV pain medication he received in the ED . He reports he is hungry now but notes a poor appetite overall. He denies chest pain, shortness of breath, cough, abdominal pain, nausea, vomiting, fever, chills, or dysuria. He does have diarrhea but reports at times he feels constipated. He has no other complaints. He is admitted observation for pain control and generalized weakness. Patient History Medical History Acquired hypothyroidism Acute dehydration Anal cancer Anal squamous cell carcinoma (~02/2020) Anemia (10/13/13) C. 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 Syncope Ulcerative colitis Ulcerative colitis Ventral hernia without obstruction or gangrene (08/07/16) Surgical History Fractures History of neck surgery (~2006) History of nephrectomy (~08/2015) History of third molar tooth extraction History of tonsillectomy (~1955) History of tonsillectomy (~1956) History of tonsillectomy (~1959) Status post colonoscopy Family & Social History Family History Mother Congestive heart failure Father Liver failure Alzheimer's dementia Social History: household members spouse Prior Living Arrangements House Safety & Behavioral: Feels Safe in Current Yes Environment Been Physically Hurt or No Threatened By a Person Suicidal Ideation Description None Suicide Plan Description No Plan Tobacco & Substance use: Smoking Status Former smoker alcohol intake never alcohol intake frequency holiday/special occasion Substance Use Type does not use Meds Home Medications and Allergies Home Medications Medication Instructions Recorded Confirmed Type cholecalciferol (vitamin D3) 50 2,000 unit PO WEEKLY 04/23/18 06/04/20 History mcg (2,000 unit) capsule Probiotic 1 cap PO DAILY 07/23/18 06/04/20 History turmeric 600 mg PO DAILY 07/23/18 06/04/20 History Iron Complex 1 tab PO WEEKLY 09/10/18 06/04/20 History mesalamine [Lialda] 1.2 g PO BID 09/30/18 06/04/20 History fluticasone propionate 50 1 spray INTRANASAL BID PRN #18.2 ml 10/04/19 06/04/20 Rx mcg/actuation nasal spray,suspension methyl B12 1,000 mcg PO WEEKLY 02/02/20 06/04/20 History L-Glutamine 500 mg PO DAILY 03/24/20 06/04/20 History econazole 1 applictn TOP BID PRN 03/24/20 06/04/20 History levothyroxine [Euthyrox] 88 mcg PO DAILY 03/24/20 06/04/20 History prednisone 5 mg tablet 2.5 mg PO BID 04/18/20 06/04/20 History famciclovir 250 mg tablet 250 mg PO BID PRN #30 tab 04/20/20 06/04/20 Rx ascorbic acid (vitamin C) 500 mg PO WEEKLY 06/04/20 06/04/20 History diazepam 5 mg PO DAILY 06/04/20 06/04/20 History geriatric [id number] 1 tab PO WEEKLY 06/04/20 06/04/20 History [[facility] [facility]] Allergies Allergy/AdvReac Type Severity Reaction Status Date / Time cefazolin [CEFAZOLIN] Allergy Severe rash Verified 06/04/20 13:26 levofloxacin [From LEVAQUIN] Allergy Mild Verified 06/04/20 13:26 morphine [MORPHINE] Allergy Mild STOPPED Verified 06/04/20 13:26 BREATHING. Review of Systems Review of Systems Narrative: A 10 system comprehensive review of systems was conducted with the patient and found to be negative except as above in the History of Present Illness. Exam Vital Signs (past 8 hours): - 06/04/20 11:06 06/04/20 11:07 06/04/20 11:19 Temperature 97.9 F Pulse Rate 80 78 78 Respiratory Rate 18 Blood Pressure 160/74 H 160/74 H Pulse Oximetry 97 97 98 06/04/20 11:56 06/04/20 12:00 06/04/20 12:30 Temperature Pulse Rate 74 74 71 Respiratory Rate Blood Pressure 145/65 H Pulse Oximetry 97 92 06/04/20 12:31 06/04/20 13:00 06/04/20 13:06 Temperature Pulse Rate 69 74 73 Respiratory Rate Blood Pressure 119/56 L 123/60 Pulse Oximetry 97 97 99 06/04/20 13:30 06/04/20 14:00 06/04/20 14:44 Temperature Pulse Rate 75 74 Respiratory Rate Blood Pressure 125/58 L 119/56 L Pulse Oximetry 98 98 98 06/04/20 15:00 06/04/20 15:30 06/04/20 16:00 Temperature Pulse Rate 76 71 72 Respiratory Rate 19 17 Blood Pressure 128/60 108/58 L 115/56 L Pulse Oximetry 97 100 96 06/04/20 16:35 Temperature 94.4 F L Pulse Rate 80 Respiratory Rate 22 Blood Pressure 123/63 Pulse Oximetry 94 Oxygen Delivery Method Nasal Cannula Oxygen Flow Rate 0 Narrative Exam Narrative: General: Elderly male sitting in bed and in no acute distress, appears lethargic and chronically ill, pale, appropriately interactive. HEENT: Normocephalic, atraumatic. External ears without defect. Pupils equal, round, and reactive to light. Anicteric sclerae, moist conjunctivae, and no lid lag. Oropharynx free of erythema and cobble stoning with moist mucosa. No ulcerations in mouth. Neck: Supple with full range of motion. No jugular venous distension. No lymphadenopathy or thyromegaly. Cardiovascular: Regular rate and rhythm without murmurs, rubs, or gallops appreciated. Pulmonary: Clear to auscultation bilaterally without crackles, wheezes, or rhonchi. Normal respiratory effort with no use of accessory muscles. Abdomen: Soft, obese, bowel sounds present, nontender, nondistended. Extremities: No clubbing, cyanosis or edema. Skin: Normal temperature, turgor, and texture; no rash, ulcers, or subcutaneous nodules appreciated. Neurological: Cranial nerves grossly intact. Generalized weakness without focal neurological deficit. Psychiatric: Depressed mood and affect. Alert and oriented to person, place, and time. Objective Labs Result Diagrams: 06/05/20 06:00 06/05/20 06:00 Labs: Laboratory Results - last 24 hr 06/04/20 06/04/20 06/04/20 12:00 12:00 12:00 WBC 1.7 L* RBC 3.19 L Hgb 8.5 L Hct 25.6 L MCV 80.2 MCH 26.5 MCHC 33.0 RDW 16.2 H Plt Count 73 L Neut % (Auto) Not Reportable Lymph % (Auto) Not Reportable [place] % (Auto) Not Reportable Eos % (Auto) Not Reportable Baso % (Auto) Not Reportable Lymph # (Auto) Not Reportable [place] # (Auto) Not Reportable Baso # (Auto) Not Reportable Total Counted 50 Seg Neutrophils % 76.0 H Band Neutrophils % 4.0 Lymphocytes % (Manual) 10.0 L Monocytes % (Manual) 10.0 Neutrophils # (Manual) 1360 L RBC Morphology See below Anisocytosis 1+ H Sodium 136 L Potassium 3.3 L Chloride 104 Carbon Dioxide 30 BUN 12 Creatinine 1.25 Estimated GFR 57.1 L BUN/Creatinine Ratio 9.6 Glucose 99 Lactate 0.8 Calcium 8.5 Magnesium Total Bilirubin 0.4 AST 21 ALT 20 Alkaline Phosphatase 60 Total Protein 6.1 L Albumin 3.2 L Globulin 2.9 Albumin/Globulin Ratio 1.1 Lipase Urine Color Urine Appearance Urine pH Ur Specific [place] Urine Protein Urine Glucose (UA) Urine Ketones Urine Occult Blood Urine Nitrate Urine Bilirubin Ur Bilirubin Confirm Urine Urobilinogen Ur Leukocyte Esterase Urine RBC Urine WBC Ur Squamous Epith Cells Amorphous Sediment Urine Bacteria Granular Casts Urine Mucus Ur Culture Indicated? COVID-19 PCR 06/04/20 06/04/20 06/04/20 12:00 12:00 14:47 WBC RBC Hgb Hct MCV MCH MCHC RDW Plt Count Neut % (Auto) Lymph % (Auto) [place] % (Auto) Eos % (Auto) Baso % (Auto) Lymph # (Auto) [place] # (Auto) Baso # (Auto) Total Counted Seg Neutrophils % Band Neutrophils % Lymphocytes % (Manual) Monocytes % (Manual) Neutrophils # (Manual) RBC Morphology Anisocytosis Sodium Potassium Chloride Carbon Dioxide BUN Creatinine Estimated GFR BUN/Creatinine Ratio Glucose Lactate Calcium Magnesium 1.5 L Total Bilirubin AST ALT Alkaline Phosphatase Total Protein Albumin Globulin Albumin/Globulin Ratio Lipase 48 Urine Color Yellow Urine Appearance Clear Urine pH 5.5 Ur Specific [place] 1.020 Urine Protein Trace H Urine Glucose (UA) Negative Urine Ketones 1+ H Urine Occult Blood Negative Urine Nitrate Negative Urine Bilirubin 1+ H Ur Bilirubin Confirm Negative Urine Urobilinogen 0.2 Ur Leukocyte Esterase Negative Urine RBC None seen Urine WBC 0-1/hpf Ur Squamous Epith Cells 1-5 /hpf Amorphous Sediment 1+ Urine Bacteria None seen Granular Casts 5-10/lpf Urine Mucus 1+ H Ur Culture Indicated? Cult not indicated COVID-19 PCR Negative Assessment & Plan Assessment & Plan narrative: Aleksandar Bay is a 70-year-old male with past medical history significant for ulcerative colitis, adrenal insufficiency, hypothyroidism, and recent diagnosis of locally advanced anal squamous cell carcinoma who presented to the ED due to rectal pain and generalized weakness. 1. Acute on chronic rectal pain, secondary to locally advanced anal squamous cell carcinoma and diarrhea, present on admission. Active. -Patient is receiving radiation to area precipitating pain (received 6 rounds thus far and missed 2 rounds due to rectal pain), as well as, acute on chronic diarrhea worsened with chemotherapy 5 FU and mitomycin C. -Continue pain control with: 2% lidocaine jelly applied to the anus three times daily, hydrocortisone suppository twice daily as needed, oxycodone 5-10 mg every 4 hours and hydomorphone 0.5 mg IV every 6 hours for severe break through pain. -Per Dr. Quan of oncology, the patient may use Immodium 2 mg 4 times daily as needed for persistent diarrhea as 5 FU precipitates severe diarrhea. -Received 2 L boluses in ED. Continued IV fluid hydration until adequately hydrated then discontinued. Encourage PO intake of fluids. Continue to monitor electrolytes and repelete as necessary. 2. Acute on chronic generalized weakness, present on admssion. Active. -The patient reports progressive weakness for 1 year but worse over the last 3 days. The patient denies falls. -Multifactorial and secondary to malignancy, deconditioning, and now acutely worsened due to chemotherapy and radiation. -Ordered physical therapy evaluation and treatment, pending. 3. Locally advanced anal squamous cell carcinoma, present on admission. Stable. -Patient has partially obstructing squamous cell carcinoma of the anus/rectum. He is followed by Dr. Quan of oncology and Dr. Beasley of radiation oncology. -Patient recently started 5 FU and mitomycin C with his first cycle on 05/31/20 and has underwent 6 rounds of radiation (missed 2 due to rectal pain) which he reports he is suppose to do daily for 4 weeks total. -Discussed case with Dr. Quan who recommends IV fluid hydration, pain and diarrhea control. He has a follow-up appointment tomorrow which may need to be rescheduled but Dr. Quan will follow-up with medicine team to see how the patient is doing. -Patient has mild pancytopenia from recent chemotherapy and continue to monitor CBC closely and for signs of infection. 4. Ulcerative colitis, chronic, present on admission. Stable. -Continue home prednisone 2.5 mg twice daily and mesalamine 1.2 mg twice daily. 5. Adrenal insufficiency, chronic and secondary to chronic steroid use, present on admission. Stable. -Continue home prednisone 2.5 mg twice daily. 6. Hypothyroidism, chronic, present on admission. Stable. -Continue home levothyroxine 88 mcg daily. Code status: Full code, surrogate decision maker is designated as patient is spouse VTE prophylaxis: SCDs, held chemical prophylaxis due to pancytopenia Patient is admitted under observation status with expected length of stay less than 2 midnights due to severity of presenting symptoms, risk of adverse event, and complexity of treatment plan. Quality VTE Deep Vein Thrombosis/Pulmonary Embolism Present on Admission: No
[2020-06-04] MEDS: LOPERAMIDE 2 MG CAPSULE PO (20:15)
[2020-06-04] MEDS: LIDOCAINE JELLY 2% 5 ML 1 APPLIC TOP (20:17)
[2020-06-04] MEDS: ACETAMINOPHEN 325 MG TABLET 650 MG PO (20:31)
[2020-06-04] MEDS: predniSONE 5 MG TABLET 2.5 MG PO (21:32)
[2020-06-05] VITALS (9 sets, daily range): BP systolic 105–120; BP diastolic 56–58; PULSE 61–84; RESP 14–20; TEMP 35.9–37.3; O2SAT 90–100
[2020-06-05] MEDS: OXYCODONE/ACETAMINOPHEN 5/325 TABLET 1 TAB PO ×3 (01:09→18:13)
[2020-06-05] MEDS: HYDROMORPHONE 0.5 MG INJ IV (01:43)
[2020-06-05] MEDS: ACETAMINOPHEN 325 MG TABLET 650 MG PO (01:43)
[2020-06-05] MEDS: SODIUM CHLORIDE 0.9% FLUSH 10 ML IV (06:00)
--- NOTE | 2020-06-05 06:20 | PC.NURSE ---
[employer] Note-Patient is oriented x4, very fatigued, slightly irritable, rates rectal pain 8/10, medicated with Percocet and IV Dilaudid per prn orders. Denies nausea, vomitting, or diarrhea, tolerating water, Picc HL'd. Tylenol given for T 99.1. NSR.
[2020-06-05 06:21] LABS: Hematocrit 26.6 % (41-53); Hemoglobin 8.5 g/dL (13.5-17.5); Mean Corpuscular HGB Conc 32.1 % (30-36); Mean Corpuscular Hemoglobin 26.3 PG (26-34); Mean Corpuscular Volume 81.9 fL (80-100); Platelet Count 55 X10^3/uL (150-400); Red Blood Cell Count 3.25 X10^6/uL (4.5-5.9); Red Cell Distribution Width 16.1 % (11.6-14.8)
[2020-06-05 06:23] LABS: Add Manual Diff / Slide Review YES; White Blood Cell Count 1.3 X10^3/uL (4.5-11.0)
[2020-06-05 06:28] LABS: BUN Creatinine Ratio 5.7 (6-22); Blood Urea Nitrogen 9 mg/dL (9-20); Calcium 8.1 mg/dL (8.4-10.2); Carbon Dioxide 29 mmol/L (22-32); Chloride 105 mmol/L (98-107); Estimated Glomerular Filt Rate 43.6 mL/min (>60); Glucose 108 mg/dL (80-110); HEMOLYSIS < 15 (0-50); Magnesium 1.9 mg/dL (1.6-2.3); Sodium 135 mmol/L (137-145)
[2020-06-05 08:29] LABS: Anisocytosis 2+; Hypochromasia 2+; Neutrophils Absolute Manual 1014 /uL (3000-5900); Total Cells Counted 50
[2020-06-05] MEDS: INFLUENZA HD VACCINE 0.7 ML SYRINGE IM (09:15)
[2020-06-05] MEDS: predniSONE 5 MG TABLET 2.5 MG PO ×2 (09:15→17:43)
[2020-06-05] MEDS: MESALAMINE 400 MG CAP.DRTAB. 1200 MG PO ×2 (09:15→17:44)
[2020-06-05] MEDS: LACTOBACILLUS ACIDOPHILUS TABLET 1 EACH PO (09:15)
[2020-06-05] MEDS: LEVOTHYROXINE 88 MCG TABLET PO (09:15)
[2020-06-05] MEDS: OXYCODONE/ACETAMINOPHEN 5/325 TABLET 2 TAB PO ×2 (09:16→21:55)
--- NOTE | 2020-06-05 10:43 | PM.PN.1 ---
Subjective Subjective Date Patient Seen: 06/05/20 Time Patient Seen: 10:43 Interval history: This is a 70 year old male with PMH of ulcerative colitis, adrenal insufficiency, hypothyroidism, and recent diagnosis of locally advanced anal squamous cell carcinoma who was admitted with acute dehydration, ANA, and rectal pain. His diarrhea has improved slightly with the Imodium, and he was able to eat some breakfast this morning, he states the most he has in a few days. His creatinine initially improved but again increased this morning after fluids were stopped. He also complained of worsening rectal pain, and his Percocet dosing was increased to 1-2 pills as needed every 4 hours. If the patient's diarrhea continues, will send off a GI panel to evaluate for possible infectious causes. His pancytopenia also continues to worsen, likely a side effect of his chemotherapy, although the patient does not have any fevers since his admission. Will do a trial of continued oral medications, including antidiarrheals and pain control to see if his symptoms are stable enough so that he may potentially go home tomorrow if his kidney function again improves. Exam Vital Signs (past 8 hours): - 06/05/20 06:05 06/05/20 08:30 06/05/20 08:38 Temperature 96.9 F L 96.8 F L Pulse Rate 72 66 Respiratory Rate 20 18 Blood Pressure 107/58 L 105/57 L Pulse Oximetry 92 100 96 Oxygen Delivery Method Room Air,Nasal Cannula Oxygen Flow Rate 0 Narrative Exam Narrative: General: Elderly male sitting in bed and in no acute distress, appears lethargic and chronically ill, pale, appropriately interactive. HEENT: Normocephalic, atraumatic. External ears without defect. Pupils equal, round, and reactive to light. Anicteric sclerae, moist conjunctivae, and no lid lag. Oropharynx free of erythema and cobble stoning with moist mucosa. No ulcerations in mouth. Neck: Supple with full range of motion. No jugular venous distension. No lymphadenopathy or thyromegaly. Cardiovascular: Regular rate and rhythm without murmurs, rubs, or gallops appreciated. Pulmonary: Clear to auscultation bilaterally without crackles, wheezes, or rhonchi. Normal respiratory effort with no use of accessory muscles. Abdomen: Soft, obese, bowel sounds present, nontender, nondistended. Extremities: No clubbing, cyanosis or edema. Skin: Normal temperature, turgor, and texture; no rash, ulcers, or subcutaneous nodules appreciated. Neurological: Cranial nerves grossly intact. Generalized weakness without focal neurological deficit. Psychiatric: Depressed mood and affect. Alert and oriented to person, place, and time. Objective Labs Result Diagrams: 06/05/20 06:00 06/05/20 06:00 Labs: Laboratory Results - last 24 hr 06/04/20 06/04/20 06/04/20 12:00 12:00 12:00 WBC 1.7 L* RBC 3.19 L Hgb 8.5 L Hct 25.6 L MCV 80.2 MCH 26.5 MCHC 33.0 RDW 16.2 H Plt Count 73 L Neut % (Auto) Not Reportable Lymph % (Auto) Not Reportable [place] % (Auto) Not Reportable Eos % (Auto) Not Reportable Baso % (Auto) Not Reportable Lymph # (Auto) Not Reportable [place] # (Auto) Not Reportable Baso # (Auto) Not Reportable Total Counted 50 Seg Neutrophils % 76.0 H Band Neutrophils % 4.0 Lymphocytes % (Manual) 10.0 L Monocytes % (Manual) 10.0 Metamyelocytes % Neutrophils # (Manual) 1360 L RBC Morphology See below Hypochromasia Anisocytosis 1+ H Sodium 136 L Potassium 3.3 L Chloride 104 Carbon Dioxide 30 BUN 12 Creatinine 1.25 Estimated GFR 57.1 L BUN/Creatinine Ratio 9.6 Glucose 99 Lactate 0.8 Calcium 8.5 Magnesium Total Bilirubin 0.4 AST 21 ALT 20 Alkaline Phosphatase 60 Total Protein 6.1 L Albumin 3.2 L Globulin 2.9 Albumin/Globulin Ratio 1.1 Lipase Urine Color Urine Appearance Urine pH Ur Specific [place] Urine Protein Urine Glucose (UA) Urine Ketones Urine Occult Blood Urine Nitrate Urine Bilirubin Ur Bilirubin Confirm Urine Urobilinogen Ur Leukocyte Esterase Urine RBC Urine WBC Ur Squamous Epith Cells Amorphous Sediment Urine Bacteria Granular Casts Urine Mucus Ur Culture Indicated? Nasal Screen MRSA (PCR) COVID-19 PCR 06/04/20 06/04/20 06/04/20 12:00 12:00 14:47 WBC RBC Hgb Hct MCV MCH MCHC RDW Plt Count Neut % (Auto) Lymph % (Auto) [place] % (Auto) Eos % (Auto) Baso % (Auto) Lymph # (Auto) [place] # (Auto) Baso # (Auto) Total Counted Seg Neutrophils % Band Neutrophils % Lymphocytes % (Manual) Monocytes % (Manual) Metamyelocytes % Neutrophils # (Manual) RBC Morphology Hypochromasia Anisocytosis Sodium Potassium Chloride Carbon Dioxide BUN Creatinine Estimated GFR BUN/Creatinine Ratio Glucose Lactate Calcium Magnesium 1.5 L Total Bilirubin AST ALT Alkaline Phosphatase Total Protein Albumin Globulin Albumin/Globulin Ratio Lipase 48 Urine Color Yellow Urine Appearance Clear Urine pH 5.5 Ur Specific [place] 1.020 Urine Protein Trace H Urine Glucose (UA) Negative Urine Ketones 1+ H Urine Occult Blood Negative Urine Nitrate Negative Urine Bilirubin 1+ H Ur Bilirubin Confirm Negative Urine Urobilinogen 0.2 Ur Leukocyte Esterase Negative Urine RBC None seen Urine WBC 0-1/hpf Ur Squamous Epith Cells 1-5 /hpf Amorphous Sediment 1+ Urine Bacteria None seen Granular Casts 5-10/lpf Urine Mucus 1+ H Ur Culture Indicated? Cult not indicated Nasal Screen MRSA (PCR) COVID-19 PCR Negative 06/04/20 06/05/20 06/05/20 17:26 06:00 06:00 WBC 1.3 L* RBC 3.25 L Hgb 8.5 L Hct 26.6 L MCV 81.9 MCH 26.3 MCHC 32.1 RDW 16.1 H Plt Count 55 L Neut % (Auto) Not Reportable Lymph % (Auto) Not Reportable [place] % (Auto) Not Reportable Eos % (Auto) Not Reportable Baso % (Auto) Not Reportable Lymph # (Auto) Not Reportable [place] # (Auto) Not Reportable Baso # (Auto) Not Reportable Total Counted 50 Seg Neutrophils % 54.0 Band Neutrophils % 24.0 H Lymphocytes % (Manual) 16.0 L Monocytes % (Manual) 4.0 Metamyelocytes % 2.0 H Neutrophils # (Manual) 1014 L RBC Morphology Not Reportable Hypochromasia 2+ H Anisocytosis 2+ H Sodium 135 L Potassium 4.0 Chloride 105 Carbon Dioxide 29 BUN 9 Creatinine 1.58 H Estimated GFR 43.6 L BUN/Creatinine Ratio 5.7 L Glucose 108 Lactate Calcium 8.1 L Magnesium 1.9 Total Bilirubin AST ALT Alkaline Phosphatase Total Protein Albumin Globulin Albumin/Globulin Ratio Lipase Urine Color Urine Appearance Urine pH Ur Specific [place] Urine Protein Urine Glucose (UA) Urine Ketones Urine Occult Blood Urine Nitrate Urine Bilirubin Ur Bilirubin Confirm Urine Urobilinogen Ur Leukocyte Esterase Urine RBC Urine WBC Ur Squamous Epith Cells Amorphous Sediment Urine Bacteria Granular Casts Urine Mucus Ur Culture Indicated? Nasal Screen MRSA (PCR) Negative for mrsa COVID[facility]19 [facility] Medical History Acquired hypothyroidism Acute dehydration Anal cancer Anal squamous cell carcinoma (~02/2020) Anemia (10/13/13) C. 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 Syncope Ulcerative colitis Ulcerative colitis Ventral hernia without obstruction or gangrene (08/07/16) Surgical History Fractures History of neck surgery (~2006) History of nephrectomy (~08/2015) History of third molar tooth extraction History of tonsillectomy (~1955) History of tonsillectomy (~1956) History of tonsillectomy (~1959) Status post colonoscopy Family History Mother Congestive heart failure Father Liver failure Alzheimer's dementia Social History household members: spouse Smoking Status: Former smoker alcohol intake: never Assessment & Plan Assessment & Plan narrative: This is a 70 year old male with PMH of ulcerative colitis, adrenal insufficiency, hypothyroidism, and recent diagnosis of locally advanced anal squamous cell carcinoma who was admitted with acute dehydration, ANA, and rectal pain. 1. Acute on chronic rectal pain, secondary to locally advanced anal squamous cell carcinoma and diarrhea, present on admission. Active. -Patient is receiving radiation to area precipitating pain (received 6 rounds thus far and missed 2 rounds due to rectal pain), as well as, acute on chronic diarrhea worsened with chemotherapy 5 FU and mitomycin C. -Continue pain control with: 2% lidocaine jelly applied to the anus three times daily, hydrocortisone suppository twice daily as needed, percocet 1-2 tabs every 4 hours and hydomorphone 0.5 mg IV every 6 hours for severe break through pain. -Per Dr. Quan of oncology, the patient may use Immodium 2 mg 4 times daily as needed for persistent diarrhea as 5 FU precipitates severe diarrhea. -Received 2 L boluses in ED. Continued IV fluid hydration until adequately hydrated then discontinued. Encourage PO intake of fluids. Continue to monitor electrolytes and repelete as necessary. -GI panel pending given diarrhea. 2. Acute on chronic generalized weakness, present on admssion. Active. -The patient reports progressive weakness for 1 year but worse over the last 3 days. The patient denies falls. -Multifactorial and secondary to malignancy, deconditioning, and now acutely worsened due to chemotherapy and radiation. -Ordered physical therapy evaluation and treatment, pending. 3. Locally advanced anal squamous cell carcinoma, present on admission. Stable. -Patient has partially obstructing squamous cell carcinoma of the anus/rectum. He is followed by Dr. Quan of oncology and Dr. Beasley of radiation oncology. -Patient recently started 5 FU and mitomycin C with his first cycle on 05/31/20 and has underwent 6 rounds of radiation (missed 2 due to rectal pain) which he reports he is suppose to do daily for 4 weeks total. -Discussed case with Dr. Quan who recommends IV fluid hydration, pain and diarrhea control. He has a follow-up appointment tomorrow which may need to be rescheduled but Dr. Quan will follow-up with medicine team to see how the patient is doing. -Patient has mild pancytopenia from recent chemotherapy and continue to monitor CBC closely and for signs of infection. 4. Ulcerative colitis, chronic, present on admission. Stable. -Continue home prednisone 2.5 mg twice daily and mesalamine 1.2 mg twice daily. 5. Adrenal insufficiency, chronic and secondary to chronic steroid use, present on admission. Stable. -Continue home prednisone 2.5 mg twice daily. 6. Hypothyroidism, chronic, present on admission. Stable. -Continue home levothyroxine 88 mcg daily. 7. Acute kidney injury, present on admission - secondary to dehydration in the setting of diarrhea and decreased PO intake / dehydration. - Cr 1.49 > 1.25 > 1.58 this AM. will continue to follow today, encourage increased PO intake today and will try to avoid any fluid boluses to make sure he can take enough oral intake today to discharge home possibly tomorrow. Baseline creatinine appears to be 1.1 to 1.2. Code status: Full code, surrogate decision maker is designated as patient is spouse VTE prophylaxis: SCDs, held chemical prophylaxis due to pancytopenia Patient is admitted under observation status for further monitoring. Possible discharge home tomorrow if improved pain control, tolerating sufficient oral intake, and ANA improved. Quality VTE Deep Vein Thrombosis/Pulmonary Embolism Present on Admission: No
--- NOTE | 2020-06-05 11:30 | PT-IP ANOTE ---
Attempted to initiate evaluation at 0956. BP in supine was 104/57. BP dropped to 83/51 in sitting with c/o ooziness. Returned pt to supine. Will attempt to see in PM.
--- NOTE | 2020-06-05 12:15 | PT.IIE ---
Surgical History (Last Reviewed 06/05/20 @ 10:52 by Isaias Zaidi DO) Fractures History of neck surgery (~2006) History of nephrectomy (~08/2015) History of third molar tooth extraction History of tonsillectomy (~1955) History of tonsillectomy (~1956) History of tonsillectomy (~1959) Status post colonoscopy Medical History (Last Reviewed 06/05/20 @ 10:52 by Isaias Zaidi DO) Acquired hypothyroidism Acute dehydration Anal cancer Anal squamous cell carcinoma (~02/2020) Anemia (10/13/13) C. 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 No deficits noted. Able to make needs known. Mobility and Gait Prior to chemo, pt was IND for all mobility and amb without AD. Sitting tolerance is limited d/t radiation therapy. Activities of Daily Living and IADL's IND for all ADLs and IADLs including driving. Social History Household Members spouse Living Arrangements House Number of Floors (Floors) One Floor Number of Stairs To Enter/Railing? 2 ONELIA without railing. Home Environment High Toilet,Walk in Shower, Built-In Shower Seat Home Equipment Shower Seat with Backrest,Hand Held Shower,Long Handled Sponge,Grab Bars In Shower Employment Status Retired Additional Social History Comment Pt lives with , who works during the day. Son lives in [facility]. Daughter lives in [place], [place]. Pt has a friend, who lives closeby and will be able to help pt occasionally. M2 PT-IP Current Condition Start: 06/05/20 08:16 Freq: NEEDED Status: Active Protocol: Document 06/05/20 12:11 DE (Rec: 06/05/20 12:41 DE [id number]) Physical Therapy Current Condition Current Condition Evaluation Date 06/05/20 Treatment Diagnosis Anal squamous cell carcinoma; Gereralized weakness Onset Date 06/04/20 M3 PT-IP Subjective Start: 06/05/20 08:16 Freq: NEEDED Status: Active Protocol: Document 06/05/20 12:11 DE (Rec: 06/05/20 12:41 DE [id number]) Subjective Physical Therapy Visit Type Type Initial Evaluation Visit Start Time 09:56 Visit Stop Time 12:01 Total Visit Minutes 52 Notes Pt was seen in split visits from 0956 to 1025 and from 1140 to 1201. SPT Chris led session under direct supervision of PT Mckayla. Number of CIVIL LITIGATION ATTORNEY Visits 0 Physical Therapy Visit Comments Patient Comments Pt is agreeable to do PT. M4 PT-IP Mobility and Gait Start: 06/05/20 08:16 Freq: NEEDED Status: Active Protocol: Document 06/05/20 12:11 DE (Rec: 06/05/20 12:41 DE [id number]) PT-Bed Mobility Assessment Supine to Sit Supine to Sit Minimal Assistance,1 Person Assistance,Head of Bed Elevated,Bedrails PT-Transfer Assessment Sit to and From Stand Sit to and from Stand Minimal Assistance,1 Person Assistance,Use of Upper Extremities Equipment Transfer Assistive Device Gait Belt,Front Wheeled Walker Orthotic/Prosthetic Devices or Brace: No Transfers Transfer Destination Bedside Commode Transfer Technique Amb with FWW Transfer Ability Level of Assist Minimal Assistance,1 Person Assistance,Use of Upper Extremities Comments Mobility Comments Pt was inclined lying on his L side in bed upon arrival. BP in supine was 106/57. Pt completed supine to sit at L side EOB with 1P min CONCRETE INSPECTOR and L bedrail. Pt also used momentum to sit up. BP in sitting at EOB was 103/56. Pt then performed sit to stand with FWW and 1P min assist. Pt requested to use the bathroom for bowel movement. Pt amb ~2 ft to the R and sat down on the BSC that was placed by PT with FWW and 1P min assist. Pt sat there for ~5 min and needed assistance for pericare in standing. However, pt continued to have urgency for bowel movement. Pt safely handed off to IT ASSISTANT. Gait Assessment Gait Gait Assistance Required: Minimum Assistance,1 Person Assist Distance (Feet) 2 Assistive Devices Assistive Device Gait Belt,Front Wheeled Walker Orthotic/Prosthetic Devices or Brace: No Gait Deviations General Gait Pattern Antalgic,Decreased Stride Length,Decreased Feet Clearance Factors Limiting Gait Function Factors Limiting Gait Function Decreased Activity Tolerance, Decreased Strength,Limited Range of Motion,Pain,Poor Balance Comments Gait Comments See mobility comments. Stair Climbing Assessment Comments Stair Climbing Comments Not assessed. PT-Balance Assessment Sitting Balance and Reactions Static Sitting Balance Ability Normal Dynamic Sitting Balance Ability Good Standing Balance and Reactions Static Standing Balance Ability Good Dynamic Standing Balance Ability Fair M5 PT-IP Objective Assessments Start: 06/05/20 08:16 Freq: NEEDED Status: Active Protocol: Document 06/05/20 12:11 DE (Rec: 06/05/20 12:41 DE [id number]) Orientation Orientation/Cognition Level of Alertness Lethargic Orientation Name,Age,Birthday,Month,Date, Year,Day of Week,Place, Situation Language Function Ability No Deficits Noted Safety Awareness Understands Safety Issues Memory Description No Deficits Noted Gross Range of Motion Lower Extremity ROM Assessment Within Functional Limits Strength Lower Extremity Strength Assessment Bilaterally Impaired Comments Strength Comments Generalized weakness and fatigue Coordination Assessment Gross Coordination Gross Coordination WNL Sensation Assessment Sensation Gross Sensation WNL Light Touch Intact Muscle Tone Muscle Tone WNL Yes M6 PT-IP Treatment Start: 06/05/20 08:16 Freq: NEEDED Status: Active Protocol: Document 06/05/20 12:11 DE (Rec: 06/05/20 12:41 DE [id number]) Physical Therapy Treatment Education Education Provided Safety Other Treatments Other Treatment Performed Provided education on safety and role of PT. M7 PT-IP Assessment and Plan Start: 06/05/20 08:16 Freq: NEEDED Status: Active Protocol: Document 06/05/20 12:11 DE (Rec: 06/05/20 12:41 DE [id number]) PT Summary Assessment and Plan Potential Rehabilitation Potential Fair Status of Condition at Evaluation Evolving Summary Impairments Pain,ROM,Strength,Balance,Bed Mobility,Transfers,Gait, Activity Tolerance Assessment Summary Aleksandar is a 70 yo male who was admitted to the hospital for rectal pain and generalized weakness secondary to anal squamous cell carcinoma and radiation therapy. At baseline , pt was IND for all mobility, amb, and ADLs without AD prior to beginning radiation therapy. On evaluation, pt requires 1P min assist for all supine to sit and sit <> stand with use of FWW. Pt is not safe yet to d/c home. Pt will need to improve activity tolerance and perform 2 steps without railing before d/c home. PT will continue to assess pt progress and refine d/c recommendation. Depending on progress, PT will recommend home with assistance and HH vs SNF. Goals Bed Mobility Goal Standby Assistance Transfer Goal Standby Assistance Gait Goal Standby Assistance Gait Distance 100 Other Goals Pt will perform 2 steps up and down CGA without railing. Days to Meet Goals 5 Frequency of Treatment Frequency Of Treatment Twice a Day Treatment Plan Physical Therapy Treatment Plan Bed Mobility Training,Transfer Training,Gait Training, Therapeutic Exercise,Balance Retraining,Post Op Education, Discharge Planning,Hot or Cold Pack,Neuromuscular Re-ed Recommendations To Nursing Amount of Assist Needed 1 Person Assist Discharge Recommendations PT Discharge Recommendations Home with Assistance,Home Health,SNF Rehab Equipment Needed for Home Before FWW if going home. Discharge Transportation Needs at Discharge Private Vehicle Treatment was provided by ADELIA Gaytan and supervised by Mckayla Rubi, GABRIELLA. I personally reviewed this note and agree with its contents.
--- NOTE | 2020-06-05 12:15 | PT.IIE ---
Surgical History (Last Reviewed 06/05/20 @ 10:52 by Isaias Zaidi DO) Fractures History of neck surgery (~2006) History of nephrectomy (~08/2015) History of third molar tooth extraction History of tonsillectomy (~1955) History of tonsillectomy (~1956) History of tonsillectomy (~1959) Status post colonoscopy Medical History (Last Reviewed 06/05/20 @ 10:52 by Isaias Zaidi DO) Acquired hypothyroidism Acute dehydration Anal cancer Anal squamous cell carcinoma (~02/2020) Anemia (10/13/13) C. 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 No deficits noted. Able to make needs known. Mobility and Gait Prior to chemo, pt was IND for all mobility and amb without AD. Sitting tolerance is limited d/t radiation therapy. Activities of Daily Living and IADL's IND for all ADLs and IADLs including driving. Social History Household Members spouse Living Arrangements House Number of Floors (Floors) One Floor Number of Stairs To Enter/Railing? 2 ONELIA without railing. Home Environment High Toilet,Walk in Shower, Built-In Shower Seat Home Equipment Shower Seat with Backrest,Hand Held Shower,Long Handled Sponge,Grab Bars In Shower Employment Status Retired Additional Social History Comment Pt lives with , who works during the day. Son lives in [facility]. Daughter lives in [place], [place]. Pt has a friend, who lives closeby and will be able to help pt occasionally. M2 PT-IP Current Condition Start: 06/05/20 08:16 Freq: NEEDED Status: Active Protocol: Document 06/05/20 12:11 DE (Rec: 06/05/20 12:41 DE [id number]) Physical Therapy Current Condition Current Condition Evaluation Date 06/05/20 Treatment Diagnosis Anal squamous cell carcinoma; Gereralized weakness Onset Date 06/04/20 M3 PT-IP Subjective Start: 06/05/20 08:16 Freq: NEEDED Status: Active Protocol: Document 06/05/20 12:11 DE (Rec: 06/05/20 12:41 DE [id number]) Subjective Physical Therapy Visit Type Type Initial Evaluation Visit Start Time 09:56 Visit Stop Time 12:01 Total Visit Minutes 52 Notes Pt was seen in split visits from 0956 to 1025 and from 1140 to 1201. SPT Chris led session under direct supervision of PT Mckayla. Number of PERIOPERATIVE ASSISTANT Visits 0 Physical Therapy Visit Comments Patient Comments Pt is agreeable to do PT. M4 PT-IP Mobility and Gait Start: 06/05/20 08:16 Freq: NEEDED Status: Active Protocol: Document 06/05/20 12:11 DE (Rec: 06/05/20 12:41 DE [id number]) PT-Bed Mobility Assessment Supine to Sit Supine to Sit Minimal Assistance,1 Person Assistance,Head of Bed Elevated,Bedrails PT-Transfer Assessment Sit to and From Stand Sit to and from Stand Minimal Assistance,1 Person Assistance,Use of Upper Extremities Equipment Transfer Assistive Device Gait Belt,Front Wheeled Walker Orthotic/Prosthetic Devices or Brace: No Transfers Transfer Destination Bedside Commode Transfer Technique Amb with FWW Transfer Ability Level of Assist Minimal Assistance,1 Person Assistance,Use of Upper Extremities Comments Mobility Comments Pt was inclined lying on his L side in bed upon arrival. BP in supine was 106/57. Pt completed supine to sit at L side EOB with 1P min HORSE BUYER and L bedrail. Pt also used momentum to sit up. BP in sitting at EOB was 103/56. Pt then performed sit to stand with FWW and 1P min assist. Pt requested to use the bathroom for bowel movement. Pt amb ~2 ft to the R and sat down on the BSC that was placed by PT with FWW and 1P min assist. Pt sat there for ~5 min and needed assistance for pericare in standing. However, pt continued to have urgency for bowel movement. Pt safely handed off to COIN [employer]SE ASSEMBLER. Gait Assessment Gait Gait Assistance Required: Minimum Assistance,1 Person Assist Distance (Feet) 2 Assistive Devices Assistive Device Gait Belt,Front Wheeled Walker Orthotic/Prosthetic Devices or Brace: No Gait Deviations General Gait Pattern Antalgic,Decreased Stride Length,Decreased Feet Clearance Factors Limiting Gait Function Factors Limiting Gait Function Decreased Activity Tolerance, Decreased Strength,Limited Range of Motion,Pain,Poor Balance Comments Gait Comments See mobility comments. Stair Climbing Assessment Comments Stair Climbing Comments Not assessed. PT-Balance Assessment Sitting Balance and Reactions Static Sitting Balance Ability Normal Dynamic Sitting Balance Ability Good Standing Balance and Reactions Static Standing Balance Ability Good Dynamic Standing Balance Ability Fair M5 PT-IP Objective Assessments Start: 06/05/20 08:16 Freq: NEEDED Status: Active Protocol: Document 06/05/20 12:11 DE (Rec: 06/05/20 12:41 DE [id number]) Orientation Orientation/Cognition Level of Alertness Lethargic Orientation Name,Age,Birthday,Month,Date, Year,Day of Week,Place, Situation Language Function Ability No Deficits Noted Safety Awareness Understands Safety Issues Memory Description No Deficits Noted Gross Range of Motion Lower Extremity ROM Assessment Within Functional Limits Strength Lower Extremity Strength Assessment Bilaterally Impaired Comments Strength Comments Generalized weakness and fatigue Coordination Assessment Gross Coordination Gross Coordination WNL Sensation Assessment Sensation Gross Sensation WNL Light Touch Intact Muscle Tone Muscle Tone WNL Yes M6 PT-IP Treatment Start: 06/05/20 08:16 Freq: NEEDED Status: Active Protocol: Document 06/05/20 12:11 DE (Rec: 06/05/20 12:41 DE [id number]) Physical Therapy Treatment Education Education Provided Safety Other Treatments Other Treatment Performed Provided education on safety and role of PT. M7 PT-IP Assessment and Plan Start: 06/05/20 08:16 Freq: NEEDED Status: Active Protocol: Document 06/05/20 12:11 DE (Rec: 06/05/20 12:41 DE [id number]) PT Summary Assessment and Plan Potential Rehabilitation Potential Fair Status of Condition at Evaluation Evolving Summary Impairments Pain,ROM,Strength,Balance,Bed Mobility,Transfers,Gait, Activity Tolerance Assessment Summary Aleksandar is a 70 yo male who was addmitted to the hospital for rectal pain and generalized weakness secondary to anal squamous cell carcinoma and radiation therapy. At baseline , pt was IND for all mobility, amb, and ADLs without AD prior to beginning radiation therapy. On evaluation, pt requires 1P min assist for all supine to sit and sit <> stand with use of FWW. Pt is not safe yet to d/c home. Pt will need to improve activity tolerance and perform 2 steps without railing before d/c home. PT will continue to assess pt progress and refine d/c recommendation. Depending on progress, PT will recommend home with assistance and HH vs SNF. Goals Bed Mobility Goal Standby Assistance Transfer Goal Standby Assistance Gait Goal Standby Assistance Gait Distance 100 Other Goals Pt will perform 2 steps up and down CGA without railing. Days to Meet Goals 5 Frequency of Treatment Frequency Of Treatment Once a Day Treatment Plan Physical Therapy Treatment Plan Bed Mobility Training,Transfer Training,Gait Training, Therapeutic Exercise,Balance Retraining,Post Op Education, Discharge Planning,Hot or Cold Pack,Neuromuscular Re-ed Recommendations To Nursing Amount of Assist Needed 1 Person Assist Discharge Recommendations PT Discharge Recommendations Home with Assistance,Home Health,SNF Rehab Equipment Needed for Home Before FWW if going home. Discharge Transportation Needs at Discharge Private Vehicle Treatment was provided by ADELIA Gaytan and supervised by Mckayla Rubi, GABRIELLA. I personally reviewed this note and agree with its contents.
--- NOTE | 2020-06-05 14:34 | CM.DANOTE ---
DCP: Case received, EMR reviewed and met with patient. Introduced self and role. Was able to obtain some information from patient regarding his baseline activity as well as some health information prior to hospitalization. DCP assessment completed with information currently available. Patient is a 70 year old male who admitted yesterday afternoon to the care of the hospitalist team. PCP: Dr. Collins. Payer: confirmed: Medicare/ Patient came to the hospital via ambulance secondary to having diarrhea, as well as increased weakness. Patient has history of rectal cancer, anal squamous cell carcinoma. He is followed by Dr. Quan at oncology for treatment, and goes to [facility] for radiation treatment. It was noted that he had mentioned to an individual that he no longer wanted radiation. Met with patient in his room. He was sitting up on the edge of the bed. Stated, he was kind of groggy, because he had Percocet, and is not used to taking it. Asked patient about his radiation, and if he was going to continue after hospitalization. Patient stated, yes, because I have to. He resides here in [facility] with his wpouse, Shelli. At baseline, before hospitalization, patient indicated he has been getting around at home ok. He denied using any DME supplies. Noted P.T. notes, which indicated weakness, and suggestion of home health versus custodial. He is under OBS status, and Dr. Zaidi mentioned possible discharge home tomorrow if kidneys improve. Mentioned home health to patient, and indicated services. Patient stated, as long as it's covered by my insurance, I'm ok with it. Will bring in a Medicare Choice List which indicates home health agencies. P: DCP to continue to follow. Will bring in Medicare Choice List with home health agencies. Chantel Crews RN/Social Media Sr Strategy Manager
--- NOTE | 2020-06-05 14:36 | PC.NURSE ---
Addendum entered by Venu Gapsar R.N. 06/05/20 14:40: Unable to collect GI spec due to incontinence and stool soaked into brief and one episode where stool was mixed with urine. Original Note: Pt mainly c/o generalized weakness and left hip pain. Pt reports pain is adequately controlled with percocet but states it makes him feel foggy which is undesirable for him. He lays in left side lying position. He states that this is the only way he is able to sleep, although it makes his hip more painful. Declined assistance to reposition to right side. He will accept lidocaine patch to left hip. He declined ordered supp and colace. States he is unable to take medications MN under the instruction of his doctors. He has been afebrile, oriented/drowsy, SR and stable VS. He did have one episode of low blood pressure this shift during PT, but resolved without intervention. Pt using call light and making needs known.
[2020-06-05] MEDS: LIDOCAINE PATCH 1 EACH ADH..PATCH TOP (15:58)
[2020-06-05] MEDS: CALCIUM CARBONATE 500 MG TAB 1000 MG PO ×3 (16:22→21:54)
[2020-06-05] MEDS: MAG HYDROX/ALUM/SIMETH 30 ML UDC PO (16:22)
--- NOTE | 2020-06-05 16:34 | DIET.PN ---
Dietary Progress Note Assessment: 70y M admitted for rectal pain and generalized weakness after recent diagnosis of locally advanced anal squamous cell carcinoma. Pt experiencing significant loose watery stools secondary to radiation treatments and has been to ED previously for IV hydration. Pt Mg and K+ were low on admit. Pt reports trying to stay hydrated despite intense diarrhea. He makes himself smoothies containinc yogurt, 1/2c milk, 1c orange juice, and frozen strawberries. HT: 182.8cm WT: 120kg UBW: 123kg BMI: 35.9 Labs: K+ 3.3 L, Mg 1.5 L, Cr 1.58 H, eGFR 43.6 L Nutrition Diagnosis: altered nutrition related laboratory values (electrolytes) r/t significant diarrhea secondary to radiation tx aeb pt admitted c K+ 3.3, Mg 1.5, pt receiving radx for anal squamous cell carcinoma, pt unable to keep on top of hydration at home. Interventions: 1. Discussed importance of and patient's ability to stay hydrated through radiation side effects. Encouraged pt to have home supply of hydrating foods and beverages which also provide electrolytes. Provided pt c handout for suggestions. 2. Recc ONS smoothie to support protein and electrolyte needs during hospital stay per pts preference. Will modify home recipe. Diet Order: HH Monitoring/Evaluations: ONS tolerance
[2020-06-05] MEDS: LOPERAMIDE 2 MG CAPSULE PO (17:53)
--- NOTE | 2020-06-05 22:27 | PC.NURSE ---
Pt states he feels improved this evening. Diarrhea stools have slowed, 4 total this shift. Medicated with Percocet x2 with good relief. Lidocaine gel to anal area after each bm. Picc line intact to r upper arm.
[2020-06-06] VITALS (10 sets, daily range): BP systolic 103–123; BP diastolic 56–71; PULSE 70–99; RESP 15–24; TEMP 36.2–37.1; O2SAT 90–99
[2020-06-06] MEDS: OXYCODONE/ACETAMINOPHEN 5/325 TABLET 1 TAB PO (03:27)
[2020-06-06 05:29] LABS: Hematocrit 24.6 % (41-53); Mean Corpuscular HGB Conc 32.4 % (30-36); Mean Corpuscular Hemoglobin 26.4 PG (26-34); Mean Corpuscular Volume 81.5 fL (80-100); Platelet Count 49 X10^3/uL (150-400); Red Blood Cell Count 3.01 X10^6/uL (4.5-5.9); Red Cell Distribution Width 15.9 % (11.6-14.8)
[2020-06-06 05:32] LABS: Add Manual Diff / Slide Review YES; White Blood Cell Count 1.2 X10^3/uL (4.5-11.0)
[2020-06-06 05:43] LABS: Alanine Aminotransferase 32 IU/L (<50); Albumin 2.9 g/dL (3.5-5.0); Alkaline Phosphatase 59 U/L (38-126); Aspartate Aminotransferase 32 IU/L (17-59); BUN Creatinine Ratio 9.1 (6-22); Bilirubin Total 0.3 mg/dL (0.2-1.3); Bilirubin Unconjugated 0.2 mg/dL (0.0-1.1); Blood Urea Nitrogen 19 mg/dL (9-20); Calcium 8.2 mg/dL (8.4-10.2); Carbon Dioxide 28 mmol/L (22-32); Chloride 100 mmol/L (98-107); Estimated Glomerular Filt Rate 31.6 mL/min (>60); Glucose 111 mg/dL (80-110); HEMOLYSIS < 15 (0-50); Magnesium 1.9 mg/dL (1.6-2.3); Potassium 4.2 mmol/L (3.4-5.1); Sodium 132 mmol/L (137-145); Total Protein 5.9 g/dL (6.3-8.2)
[2020-06-06 06:05] LABS: Neutrophils Absolute Manual 816 /uL (3000-5900); Polychromasia 1+; Total Cells Counted 100
[2020-06-06 06:06] LABS: Anisocytosis 1+; Hypochromasia 1+; Microcytosis 1+
--- NOTE | 2020-06-06 06:28 | PC.NURSE ---
Area Representative Note-Patient slept throughout night, woke once, oriented but very drowsy, incontinent of urine and loose stool, unable to collect sample, perineum has erythemic rash and is painful, patient is reluctant to turn, cream applied, medicated with Percocet. Critical WBC 1.2, H/H 8.0/24.6, platelets 49, Creatinine 2.09 reported to Marcus SERRATO this am at 0620.
[2020-06-06] MEDS: SODIUM CHLORIDE 0.9% 1,000 ML 1000 ML IV (08:26)
[2020-06-06] MEDS: LEVOTHYROXINE 88 MCG TABLET PO (08:27)
[2020-06-06] MEDS: MESALAMINE 400 MG CAP.DRTAB. 1200 MG PO (08:27)
[2020-06-06] MEDS: LACTOBACILLUS ACIDOPHILUS TABLET 1 EACH PO (08:27)
[2020-06-06] MEDS: predniSONE 5 MG TABLET 2.5 MG PO ×2 (08:33→17:46)
[2020-06-06] MEDS: SODIUM CHLORIDE 0.9% FLUSH 10 ML IV (08:34)
[2020-06-06] MEDS: NALOXONE 0.4 MG/ML VIAL 0.2 MG IV ×2 (09:08→10:10)
--- NOTE | 2020-06-06 09:24 | DI.CT.S_ITS ---
PROCEDURE: CT HEAD/BRAIN WO CON INDICATIONS: altered mental status TECHNIQUE: Noncontrast 4.5 mm thick angled axial sections acquired from the foramen magnum to the vertex, with coronal and sagittal reformats. For radiation dose reduction, the following was used: automated exposure control, adjustment of mA and/or kV according to patient size. COMPARISON: [facility], CT, HEAD WITHOUT CONTRAST, 06/01/2016, 13:05. FINDINGS: Image quality: Excellent. CSF spaces: Basal cisterns are patent. No extra-axial fluid collections. The ventricles are symmetric in size and shape. Brain: No intracranial bleeds or masses. There is cerebral volume loss for age, with resultant ventricular and sulcal prominence. There are periventricular and deep white matter chronic small vessel ischemic changes. There is intracranial internal carotid artery atherosclerosis. Skull and face: Calvarium and visualized facial bones appear intact, without suspicious lesions. Sinuses: Mild left maxillary sinus disease. IMPRESSION: No acute intracranial process. Dictated by: Venu Chirinos M.D. on 06/06/2020 at 10:46 Approved by: Venu Chirinos M.D. on 06/06/2020 at 10:50
--- NOTE | 2020-06-06 10:09 | PM.PN.1 ---
Subjective Subjective Date Patient Seen: 06/06/20 Time Patient Seen: 10:09 Interval history: This is a 70 year old male with PMH of ulcerative colitis, adrenal insufficiency, hypothyroidism, and recent diagnosis of locally advanced anal squamous cell carcinoma who was admitted with acute dehydration, ANA, and rectal pain. This morning he was profoundly lethargic, with constricted pupils and not moving his R side as well and was not following commands. He did not eat well yesterday, Cr has again risen this AM. He woke up with narcan administration and was seemingly back to baseline, but he is frequently falling asleep and today is requiring supplemental oxygen. CT of his head is pending, and will be sent for a 2 view XR of his chest for further evaluation. He denies pain this AM, no chest pain, palpitations. He does feel slightly short of breath. No nausea or vomiting, no abdominal pain, no LE edema. Exam Vital Signs (past 8 hours): - 06/06/20 03:59 06/06/20 04:00 06/06/20 08:00 Temperature 97.2 F L 98.7 F Pulse Rate 80 71 Respiratory Rate 20 17 Blood Pressure 103/61 111/58 L Pulse Oximetry 94 94 97 Oxygen Delivery Method Room Air Oxygen Flow Rate 0 Narrative Exam Narrative: General: Elderly male sitting in bed and in no acute distress, appears lethargic and chronically ill, pale, after narcan administration still fatigued, disoriented slightly, mildly anxious appearing. HEENT: Normocephalic, atraumatic. External ears without defect. Pupils equal, round, and reactive to light. Anicteric sclerae, moist conjunctivae, and no lid lag. Oropharynx free of erythema and cobble stoning with moist mucosa. No ulcerations in mouth. Neck: Supple with full range of motion. No jugular venous distension. No lymphadenopathy or thyromegaly. Cardiovascular: Regular rate and rhythm without rubs, or gallops but systolic murmur at LSB appreciated, 2-3/6. Pulmonary: Clear to auscultation bilaterally without crackles, wheezes, or rhonchi. slightly decreased respiratory drive. Abdomen: Soft, obese, bowel sounds present, nontender, nondistended. Extremities: No clubbing, cyanosis or edema. Skin: Normal temperature, turgor, and texture; no rash, ulcers, or subcutaneous nodules appreciated. Neurological: Cranial nerves grossly intact. Generalized weakness without focal neurological deficit. Psychiatric: Depressed mood and affect. Alert and oriented after narcan. Objective Labs Result Diagrams: 06/06/20 05:15 06/06/20 05:15 Labs: Laboratory Results - last 24 hr 06/06/20 06/06/20 05:15 05:15 WBC 1.2 L* RBC 3.01 L Hgb 8.0 L Hct 24.6 L MCV 81.5 MCH 26.4 MCHC 32.4 RDW 15.9 H Plt Count 49 L Neut % (Auto) Not Reportable Lymph % (Auto) Not Reportable [place] % (Auto) Not Reportable Eos % (Auto) Not Reportable Baso % (Auto) Not Reportable Lymph # (Auto) Not Reportable [place] # (Auto) Not Reportable Baso # (Auto) Not Reportable Total Counted 100 Seg Neutrophils % 52.0 Band Neutrophils % 16.0 H Lymphocytes % (Manual) 24.0 L Monocytes % (Manual) 8.0 Neutrophils # (Manual) 816 L RBC Morphology Not Reportable Polychromasia 1+ H Hypochromasia 1+ H Anisocytosis 1+ H Microcytosis 1+ H Sodium 132 L Potassium 4.2 Chloride 100 Carbon Dioxide 28 BUN 19 Creatinine 2.09 H Estimated GFR 31.6 L BUN/Creatinine Ratio 9.1 Glucose 111 H Calcium 8.2 L Magnesium 1.9 Total Bilirubin 0.3 Conjugated Bilirubin 0.0 Unconjugated Bilirubin 0.2 AST 32 ALT 32 Alkaline Phosphatase 59 Total Protein 5.9 L Albumin 2.9 L Globulin 3.0 Albumin/Globulin Ratio 1.0 PFSH Medical History Acquired hypothyroidism Acute dehydration Anal cancer Anal squamous cell carcinoma (~02/2020) Anemia (10/13/13) C. 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 Syncope Ulcerative colitis Ulcerative colitis Ventral hernia without obstruction or gangrene (08/07/16) Surgical History Fractures History of neck surgery (~2006) History of nephrectomy (~08/2015) History of third molar tooth extraction History of tonsillectomy (~1955) History of tonsillectomy (~1956) History of tonsillectomy (~1959) Status post colonoscopy Family History Mother Congestive heart failure Father Liver failure Alzheimer's dementia Social History household members: spouse Smoking Status: Former smoker alcohol intake: never Assessment & Plan Assessment & Plan narrative: This is a 70 year old male with PMH of ulcerative colitis, adrenal insufficiency, hypothyroidism, and recent diagnosis of locally advanced anal squamous cell carcinoma who was admitted with acute dehydration, ANA, and rectal pain who developed a toxic metabolic encephalopathy this morning and new hypoxemia. 1. Toxic metabolic encephalopathy, acute, not present on admission - suspect secondary to narocotic pain medication use. He has required 2 doses of narcan this AM with improvement in mental status. CT head pending to rule out ? metastatic mass or bleeding given pancytopenia. - other possible causes include worsening anemia, infection, hypoxia though suspect the hypoxia is more due to his encephalopathy. 2. acute hypoxemic respiratory failure, not present on admission - suspect due to decreased respiratory drive in the setting of encephalopathy. - will check a pro-BNP, 2 view CXR. Gave 1 L bolus this AM as well given worsening ANA, but no other overt evidence of volume overload. \ 3. Acute kidney injury, present on admission - suspected do to dehydration in the setting of diarrhea and decreased PO intake / dehydration. Function continues to decline today, likely in the setting of decreased intake from ? encephalopathy now. Will check a renal US today to r/o obstructive causes. - Cr 1.49 > 1.25 > 1.58 > 2.09 this AM. Given 1 L fluid bolus today. Will continue to follow creatinine, treat encephalopathy once causes is accurately identified. - appreciate dietary consultation. 4. Acute on chronic rectal pain, secondary to locally advanced anal squamous cell carcinoma and diarrhea, present on admission. Active. -Patient is receiving radiation to area precipitating pain (received 6 rounds thus far and missed 2 rounds due to rectal pain), as well as, acute on chronic diarrhea worsened with chemotherapy 5 FU and mitomycin C. -Continue pain control with: 2% lidocaine jelly applied to the anus three times daily, hydrocortisone suppository twice daily as needed, will decrease narcotics today given encephalopathy and adjust as needed. His pain is not currently an issue even after 2 doses of narcan. -Per Dr. Quan of oncology, the patient may use Immodium 2 mg 4 times daily as needed for persistent diarrhea as 5 FU precipitates severe diarrhea. -Received 2 L boluses in ED. Continued IV fluid hydration until adequately hydrated then discontinued, trialed another bolus today however now with hypoxia and possible overload, will continue to readdress volume status. -GI panel pending given diarrhea, diarrhea has improved and have been unable to collect thus far. 5. Acute on chronic generalized weakness, present on admssion. Active. -The patient reports progressive weakness for 1 year but worse over the last 3 days. The patient denies falls. -Multifactorial and secondary to malignancy, deconditioning, and now acutely worsened due to chemotherapy and radiation. -Ordered physical therapy evaluation and treatment, pending. 6. Locally advanced anal squamous cell carcinoma, present on admission. Stable. -Patient has partially obstructing squamous cell carcinoma of the anus/rectum. He is followed by Dr. Quan of oncology and Dr. Beasley of radiation oncology. -Patient recently started 5 FU and mitomycin C with his first cycle on 05/31/20 and has underwent 6 rounds of radiation (missed 2 due to rectal pain) which he reports he is suppose to do daily for 4 weeks total. -Patient has mild pancytopenia from recent chemotherapy and continue to monitor CBC closely and for signs of infection. 7. Ulcerative colitis, chronic, present on admission. Stable. -Continue home prednisone 2.5 mg twice daily and mesalamine 1.2 mg twice daily. 8. Adrenal insufficiency, chronic and secondary to chronic steroid use, present on admission. Stable. -Continue home prednisone 2.5 mg twice daily. 9. Hypothyroidism, chronic, present on admission. Stable. -Continue home levothyroxine 88 mcg daily. 10. pancytopenia, acute, present on admission - secondary to chemotherapy as noted above. Transfuse for Hg <7, Plt <10 unless active bleeding or symptomatic. Code status: Full code, surrogate decision maker is designated as patient is spouse VTE prophylaxis: SCDs, held chemical prophylaxis due to pancytopenia Quality VTE Deep Vein Thrombosis/Pulmonary Embolism Present on Admission: No
--- NOTE | 2020-06-06 10:21 | DI.RAD.S_ITS ---
PROCEDURE: XR CHEST 2V INDICATIONS: shortness of breath TECHNIQUE: 2 views of the chest were acquired. COMPARISON: None. FINDINGS: Surgical changes and devices: None. Lungs and pleura: Lungs are clear. Small right and moderate left pleural effusions with overlying atelectasis versus consolidation. Increased interstitial markings and ground-glass airspace opacity throughout the aerated portions of the lower lobes. Mediastinum: Mediastinal contours are normal. Heart size is enlarged. Bones and chest wall: No suspicious bony abnormalities. Soft tissues appear unremarkable. IMPRESSION: Cardiomegaly with increased interstitial and airspace opacity in both lungs, along with bilateral pleural effusions. Findings presumably represent cardiogenic pulmonary edema. Dictated by: Tony Kern M.D. on 06/06/2020 at 10:10 Approved by: Tony Kern M.D. on 06/06/2020 at 10:11
--- NOTE | 2020-06-06 10:27 | DI.US.S_ITS ---
PROCEDURE: US RENAL COMPLETE INDICATIONS: ANA TECHNIQUE: Real-time scanning was performed of the kidneys and bladder, with image documentation. COMPARISON: None. FINDINGS: Kidneys: Kidneys are normal in size. Right kidney measures 11.8 cm long; left kidney surgically absent. Right renal cortical thickness is 2.2 cm; Renal cortical echotexture is normal. No hydronephrosis or nephrolithiasis. No suspicious solid mass lesions. Bladder: Bladder is collapsed therefore unremarkable Miscellaneous: No free pelvic fluid. IMPRESSION: Absent left kidney Unremarkable right kidney. No hydronephrosis. Dictated by: Venu Chirinos M.D. on 06/06/2020 at 12:26 Approved by: Venu Chirinos M.D. on 06/06/2020 at 12:27
--- NOTE | 2020-06-06 10:35 | PT.IPTN ---
Physical Therapy Treatment Note M2 PT-IP Current Condition Start: 06/05/20 08:16 Freq: NEEDED Status: Active Protocol: Document 06/05/20 12:11 DE (Rec: 06/05/20 12:41 DE [id number]) Physical Therapy Current Condition Current Condition Evaluation Date 06/05/20 Treatment Diagnosis Anal squamous cell carcinoma; Gereralized weakness Onset Date 06/04/20 M3 PT-IP Subjective Start: 06/05/20 08:16 Freq: NEEDED Status: Active Protocol: Document 06/06/20 10:35 AB (Rec: 06/06/20 11:57 AB [id number]) Subjective Physical Therapy Visit Type Type Treatment Note Visit Start Time 10:35 Visit Stop Time 10:49 Total Visit Minutes 14 Number of FUNERAL PLANNING COUNSELOR Visits 0 Physical Therapy Visit Comments Patient Comments pt is sleepy Therapy Pain Assessment Pain When Pain Assessed During Mobility Pain Present Pain Present Pain Reported Location Rectum Scale Used pain scale not stated Pain Management Techniques Distraction,Modification of Treatment,Re-positioning, Timing of Activity with Medications M4 PT-IP Mobility and Gait Start: 06/05/20 08:16 Freq: NEEDED Status: Active Protocol: Document 06/06/20 10:35 AB (Rec: 06/06/20 11:57 AB [id number]) PT-Bed Mobility Assessment Supine to Sit Supine to Sit Maximum Assistance,2 Person Assistance PT-Transfer Assessment Sit to and From Stand Sit to and from Stand Moderate Assistance Equipment Transfer Assistive Device Gait Belt,Front Wheeled Walker Orthotic/Prosthetic Devices or Brace: No Transfers Transfer Destination Wheelchair Transfer Technique Stand Step Pivot Transfer Ability Level of Assist Minimal Assistance,1 Person Assistance,Use of Upper Extremities Comments Mobility Comments per nurse, pt was over medicated and was given narcan this morning and is drowsy. audiovisual technician came in and requested assistance to transfer pt to w/c for x-ray procedure. pt completed supine to sit max A x 2 due to drowsiness and decrease following directions. pt was able to wake up and completed sit to stand mod A and cues and took ~ 5 steps to w/c min A using FWW. Left pt with audiovisual technician and nurses. Gait Assessment Gait Gait Assistance Required: Minimum Assistance,1 Person Assist Distance (Feet) 5 Able to Maintain Weight Bearing Status Yes During Gait Assistive Devices Assistive Device Gait Belt,Front Wheeled Walker Orthotic/Prosthetic Devices or Brace: No Gait Deviations General Gait Pattern Antalgic,Decreased Stride Length,Decreased Feet Clearance Factors Limiting Gait Function Factors Limiting Gait Function Decreased Activity Tolerance, Decreased Strength,Poor Balance,Poor Safety Awareness M5 PT-IP Objective Assessments Start: 06/05/20 08:16 Freq: NEEDED Status: Active Protocol: Document 06/05/20 12:11 DE (Rec: 06/05/20 12:41 DE [id number]) Orientation Orientation/Cognition Level of Alertness Lethargic Orientation Name,Age,Birthday,Month,Date, Year,Day of Week,Place, Situation Language Function Ability No Deficits Noted Safety Awareness Understands Safety Issues Memory Description No Deficits Noted Gross Range of Motion Lower Extremity ROM Assessment Within Functional Limits Strength Lower Extremity Strength Assessment Bilaterally Impaired Comments Strength Comments Generalized weakness and fatigue Coordination Assessment Gross Coordination Gross Coordination WNL Sensation Assessment Sensation Gross Sensation WNL Light Touch Intact Muscle Tone Muscle Tone WNL Yes M6 PT-IP Treatment Start: 06/05/20 08:16 Freq: NEEDED Status: Active Protocol: Document 06/06/20 10:35 AB (Rec: 06/06/20 11:57 AB [id number]) Physical Therapy Treatment Education Education Provided Safety M7 PT-IP Assessment and Plan Start: 06/05/20 08:16 Freq: NEEDED Status: Active Protocol: Document 06/06/20 10:35 AB (Rec: 06/06/20 11:57 AB [id number]) PT Summary Assessment and Plan Potential Rehabilitation Potential Fair Summary Impairments Pain,ROM,Strength,Balance, Coordination,Sensation,Tone, Cognition,Bed Mobility, Transfers,Gait,Activity Tolerance Progress Towards Goals Slow Progress due to Medical Issues,Slow Progress due to Activity Tolerance Assessment Summary pt requiring mod A with sit to stand and min A for ambulation using FWW. pt stated that he lives with his spouse. d/c plan depending on progress but pt may require SNF at this time to improve strength and mobility independent. will have to conduct caregiver training when appropriate and if pt goes home, will need homehealth PT. will continue to assess progress. Goals Bed Mobility Goal Standby Assistance Transfer Goal Standby Assistance Gait Goal Standby Assistance Gait Distance 100 Other Goals Pt will perform 2 steps up and down CGA without railing. Days to Meet Goals 5 Frequency of Treatment Frequency Of Treatment Once a Day Treatment Plan Physical Therapy Treatment Plan Bed Mobility Training,Transfer Training,Gait Training, Therapeutic Exercise,Balance Retraining,Post Op Education, Discharge Planning,Hot or Cold Pack,Neuromuscular Re-ed Recommendations To Nursing Amount of Assist Needed 1 Person Assist Discharge Recommendations PT Discharge Recommendations Home with Assistance,Home Health,SNF Rehab Equipment Needed for Home Before FWW if going home. Discharge Transportation Needs at Discharge Private Vehicle,Wheelchair/ Cabulance
[2020-06-06 10:53] LABS: NT-proBNP (BNP-Adult 18+) 2740 pg/mL (<125)
--- NOTE | 2020-06-06 11:44 | DI.ECHO.S_ITS ---
[facility]---------+ [facility] +---------+ : : [address] : : : : [id number] : : : : Phone: [phone]+ Echocardiogram Report + + :Name: SUNDEEP SU Study Date: 06/06/2020 Height: 72 in : :[facility] Weight: 265 lb : : Gender: Male BSA: 2.4 m2 : :: 1950 Age: 70 yrs BP: 111/58 mmHg: :Reason For Study: SHORTNESS OF BREATH : :Ordering Physician: EYAD, : :SHARONDA OSULLIVAN Performed By: Stefania Ramos : :Referring: SHARONDA CASTANO : + + Interpretation Summary Normal sinus rhythm. Normal LV size; proximal septal thickening noted. There is LVOT obstruction during Valsalva with peak velocity of 3.1 m/sec and peak gradient of 38 mm Hg. Rest V max is 1 m/sec and peak gradient of 10 mm Hg. EF is 60-65%. No valvular abnormalities. Mildly dilated ascending aorta 4 cm diameter and aortic root. No prior study available for comparison. Procedure: A two-dimensional transthoracic echocardiogram with color flow and Doppler was performed. The study quality was technically adequate. There is no prior echocardiogram noted for this patient. The heart rate ranged between 70-94 bpm during the study. Left Ventricle: Proximal septal thickening is noted. An intracavitary gradient is suspected. The left ventricular outflow velocity with valsalva is 2.79. The LVOT velocity is 2.23 m/s. The ejection fraction is estimated to be 65-70%. Diastolic parameters suggest a pseudonormalization pattern, consistent with probable elevated filling pressures. Right Ventricle: The right ventricle is mildly dilated. The right ventricular systolic function is normal. Atria: The left atrium is mildly dilated. Right atrial size is normal. There is no Doppler evidence for an interatrial shunt. Mitral Valve: The mitral valve leaflets appear borderline thickened, but open well. There is no mitral regurgitation noted. Aortic Valve: The aortic valve is trileaflet. The aortic valve opens well. There is no aortic valve stenosis. JOSESITO by planimetry is 3.7cm^2. No aortic regurgitation is present. Tricuspid Valve: The tricuspid valve is not well visualized, but is grossly normal. Pulmonary artery pressures cannot be estimated because of the lack of a measurable TR jet velocity but the IVC suggests a CVP of around 8 mmHg. Pulmonic Valve: The pulmonic valve leaflets are thin and pliable; valve motion is normal. There is no pulmonic valvular regurgitation. Great Vessels: The aortic root is mildly dilated. The ascending aorta is mildly enlarged. The IVC is dilated (diameter is greater than 2.1 cm) yet it collapses greater than 50% with a sniff. This suggests a right atrial pressure of 8 mm Hg. Pericardium/ Pleura There is no pericardial effusion. There is no pleural effusion. MMode/2D Measurements & Calculations LVIDd: 4.7 cm LVOT diam: 2.3 cm LVIDs: 2.9 cm Ao root diam: 4.2 cm FS: 38.7 % asc Aorta Diam: 4.0 cm EPSS: 0.22 cm IVSd: 1.1 cm LVPWd: 0.95 cm LV verde. diameter/BSA (cm/m^2): 2.0 LV sys. diameter/BSA (cm/m^2): 1.2 LA A2 area: 24.9 cm2 RA long axis: 4.7 cm LA A4 area: 21.3 cm2 RA area: 19.0 cm2 LA length (vol): 5.2 cm RA vol: 65.0 ml LA vol: 87.4 ml RA : 27.1 ml/m2 LA vol index: 36.4 ml/m2 IVC diam: 2.3 cm RVD1 (basal): 4.5 cm TAPSE: 1.8 cm JOSEISTO (plan): 3.7 cm2 Doppler Measurements & Calculations Ao V2 max: 242.1 cm/sec MV E max oswaldo: 90.4 cm/sec Ao V2 mean: 173.7 cm/sec MV A max oswaldo: 91.1 cm/sec Ao max P.4 mmHg MV E/A: 0.99 Ao mean P.0 mmHg Med Peak E' Oswaldo: 5.0 cm/sec Ao V2 VTI: 45.6 cm E/E' med: 18.0 Lat Peak E' Oswaldo: 6.1 cm/sec E/E' lat: 14.7 E/e' average: 16.4 MV dec time: 0.21 sec PA V2 max: 111.7 cm/sec PA V2 mean: 76.9 cm/sec PA mean P.6 mmHg PA pr(Accel): 41.3 mmHg Electronically signed by: Ally Coker M.D. on Reading Physician:06/06/2020 05:30 PM
[2020-06-06] MEDS: FUROSEMIDE 20 MG/2 ML VIAL IV (12:06)
[2020-06-06 12:41] LABS: Troponin I 0.038 ng/mL (0.01-0.034)
--- NOTE | 2020-06-06 13:57 | PC.NURSE ---
Day Shift Note Patient very difficult to wake this morning, very drowsy and only following some commands before quickly falling back asleep. Pupils pinpoint bilaterally, SpO2 95-96% on RA, RR 16bpm, NSR in the 70s, BP 111/58. Not verbalizing. CBG 115. Dr. Zaidi at bedside, 0.2 mg Narcan administered with pt becoming alert and verbal shortly after administration. Oriented x3. Pt down to radiology for CT scan, upon return back pt very sleepy and Spo2 noted to be in the 50s, recovered quickly on 7L oxygen (NC) and verbal stimulation to take deep breaths. Dr. Zaidi notified and another 0.2 mg Narcan administered. SpO2 now in the 94-95% range on 2L NC. Awakens easily to voice and is able to answer questions appropriately. Up 2 person assist to void via urinal. 2 view CXR and echo both done. Bed alarm is on.
--- NOTE | 2020-06-06 14:53 | OT.IP.EVAL ---
Past Medical History (Last Reviewed 06/06/20 @ 10:28 by Isaias Zaidi DO) Acquired hypothyroidism Acute dehydration Anal cancer Anal squamous cell carcinoma (~02/2020) Anemia (10/13/13) C. 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 (Rec: 06/06/20 17:00 [facility] [id number]) Medical Review Prior Functional Status Medical History Reviewed Yes Diet/Fluid Consistency Regular Communication WNL. No deficits noted. Able to make needs known. Mobility and Gait Prior to chemo, pt was IND for all mobility and amb without AD. Sitting tolerance is limited d/t radiation therapy. Activities of Daily Living and IADL's IND for all ADLs and IADLs including driving. Social History Household Members spouse Living Arrangements House Number of Floors (Floors) One Floor Number of Stairs To Enter/Railing? 2 ONELIA without railing. Home Environment High Toilet,Walk in Shower, Built-In Shower Seat Home Equipment Shower Seat with Backrest,Hand Held Shower,Long Handled Sponge,Grab Bars In Shower Employment Status Retired Additional Social History Comment Pt lives with , who works during the day. Son lives in [place]. Daughter lives in [place], [place]. Pt has a friend, who lives closeby and will be able to help pt occasionally. M2 OT-IP Current Condition Start: 06/06/20 16:32 Freq: Status: Active Protocol: Document 06/06/20 14:16 [facility] (Rec: 06/06/20 17:00 [facility] [id number]) Occupational Therapy Current Condition Current Condition Evaluation Date 06/06/20 Treatment Diagnosis Acute dehydration, anal squamous cell carcinoma Diagnosis Onset Date 06/04/30 M3 OT- IP Subjective and Pain Start: 06/06/20 16:32 Freq: Status: Active Protocol: Document 06/06/20 14:16 [facility] (Rec: 06/06/20 17:00 [facility] [id number]) OT- Subjective Occupational Therapy Visit Type Type Initial Evaluation Visit Start Time 14:16 Visit Stop Time 14:53 Total Visit Minutes 37 Occupational Therapy Visit Comments Patient Comments Pt agreed to get up and wanting to use the BSC. Patient/Caregiver Goals To go home. OT Pain Assessment Pain When Pain Assessed During Mobility Pain Present Pain Present Pain Reported M4 OT- IP ADL's Start: 06/06/20 16:32 Freq: Status: Active Protocol: Document 06/06/20 14:16 [facility] (Rec: 06/06/20 17:00 [facility] [id number]) OT OYD-[id number] Comments OT Self-Feeding Comments NOt at meal time. OT ADL-Grooming General Evaluation Grooming Ability Standby Assistance Comments OT Grooming Comments Set-up OT ADL-Oral Care Comments Oral Care Comments Not performed. OT ADL-Dressing General Eval Lower Body Dressing Ability Minimal Assistance,Maximum Assistance Areas Needing Assistance Underpants/Brief Comments OT Dressing Comments Educated pt on use of water quality analyst to assist to help put on the brief. OT ADL-Toileting General Evaluation Toileting Ability Maximum Assistance Areas Needing Assistance Manage Clothing,Perform Perineal Hygiene Devices Toileting Assistive Devices Commode Comments OT Toileting Comments Dependent for hygiene needs and assist to help pull up the brief over his hips. OT ADL-Bathing Comments OT Bathing Comments NOt performed, if appropriate to try to shower tomorrow. M5 OT- IP IADL's Start: 06/06/20 16:32 Freq: Status: Active Protocol: Document 06/06/20 14:16 [facility] (Rec: 06/06/20 17:00 [facility] [id number]) OT-Instrumental Activities of Daily Living Home Safety Awareness Awareness of Need for Assistance at Home Good Awareness Medication Management Medication Management Comments Pt's able to assist as needed. M6 OT- IP Functional Cognition Start: 06/06/20 16:32 Freq: Status: Active Protocol: Document 06/06/20 14:16 [facility] (Rec: 06/06/20 17:00 [facility] [id number]) Cognitive Factors Limiting Selfcare Function Cognitive Ability Level of Alertness Alert Patient Orientation Name,Age,Birthday,Month,Date, Year,Day of Week,Place, Situation Attention Span Ability Capable of Focused Attention, Capable of Sustained Attention Ability to Follow Commands Able to Follow One Step Commands Safety Awareness Underestimates Need for Assistance Cognitive Comments Cognitive Assessment Comments Pt a little impulsive at times and able to follow directions for mobility and ADl needs appropriately. OT- Vision and Hearing OT- Hearing Assessment OT- Hearing Assessment WFL OT- Vision Assessment Visual Acuity Glasses All The Time M7 OT- IP Mobility and Balance Start: 06/06/20 16:32 Freq: Status: Active Protocol: Document 06/06/20 14:16 [facility] (Rec: 06/06/20 17:00 [facility] [id number]) OT- Bed Mobility Assessment Supine to Sit Supine to Sit Assist Moderate Assistance,1 Person Assistance,Bedrails Sit to Supine Sit to Supine Assist Moderate Assistance,1 Person Assistance,Bedrails OT-Transfer Assessment Sit to and From Stand Sit to and from Stand Moderate Assistance,1 Person Assistance Transfers Transfer Ability Minimal Assistance Technique Transfer Destination Bed,Bedside Commode Transfer Technique Stand Step Pivot Devices Transfer Assistive Devices Gait Belt,Front Wheeled Walker Comments Mobility Comments MODA to stand and for bed mobility while sidelying. DONY after up with the FWW to turn to the BSC from the bed. OT- Gait Assessment Comments Gait Ability Comments Pt just tolerated transfer to and from the bed to BSC at this time. After in bed pt states having diarrhea in his brief and nursing notified. OT- Balance Assessment Sitting Balance and Reactions Static Sitting Balance Ability Good Dynamic Sitting Balance Ability Fair Standing Balance and Reactions Static Standing Balance Ability Fair M8 OT- IP Objective Assessments Start: 06/06/20 16:32 Freq: Status: Active Protocol: Document 06/06/20 14:16 [facility] (Rec: 06/06/20 17:00 [facility] [id number]) OT Gross Range of Motion Upper Extremity Range of Motion Assessment Bilaterally Impaired OT-Muscle Tone Assessment Muscle Tone WNL Yes M9 OT- IP Assessment and Plan Start: 06/06/20 16:32 Freq: Status: Active Protocol: Document 06/06/20 14:16 [facility] (Rec: 06/06/20 17:00 [facility] [id number]) OT Summary Assessment and Plan Potential Rehabilitation Potential Good Analytic Complexity at Evaluation Low Summary OT Impairments Pain,Range of Motion,Balance, Functional Mobility,Grooming, Dressing,Toileting,Bathing, Toilet Transfers,Shower Transfers,Activity Tolerance Progress Towards Goals Slow Progress due to Pain,Slow Progress due to Medical Issues,Slow Progress due to Activity Tolerance Assessment Summary Pt low complexity and here due to acute dehydration and anal squamous cell carcinoma. Pt now needing more assist for bed mobility, transfers, and ADl's. Pt wanting to go home however pending if pt's able to provide enough assist would benefit from short skilled rehab prior to going home. Goals Self-Feeding Goal Independent Grooming Goal Independent Dressing Goal Independent Toileting Goal Independent Bathing Goal Independent Toilet Transfer Goal Independent Shower Transfer Goal Independent Patient/Caregiver Education Goal Caregiver Independent Assisting Patient Days to Meet Goals 20 Frequency of Treatment Frequency Of Treatment Once a Day Treatment Plan OT Treatment Plan ADL Training,Functional Cognition Training,Functional Mobility,Patient/Family Education,Discharge Planning Other Treatment Recommendations and Next shower Treatment Focus Discharge Recommendations OT Discharge Recommendations Home with Assistance,SNF Rehab Home Equipment Needs Defer to skilled rehab Transportation Needs at Discharge Wheelchair/Cabulance
[2020-06-06] MEDS: ACETAMINOPHEN 325 MG TABLET 650 MG PO (17:44)
[2020-06-06] MEDS: LIDOCAINE PATCH 1 EACH ADH..PATCH TOP (17:46)
[2020-06-06] MEDS: SODIUM CHLORIDE 0.9% 1,000 ML 125 ML IV (18:48)
--- NOTE | 2020-06-06 19:21 | PC.NURSE ---
Pt received laying in bed, arousable to voice, oriented to self, place and date. Pt mildly confused and suspicious of care. Pt complains of pain in L hip and in rectum with perineal care. Barrier cream in place on rectum. Pt given tylenol and lidocaine patch for L hip pain. MD aware. Pt, this RN and MD in agreement that pt should not receive narcotics d/t his earlier sedation with responsiveness to narcan. Pt's at bedside, updated with days events and medication/pain management strategy. Pt did not want to take hospitals mesalamine, requested his home medication be given. Pt's went home and got pt's medications and medication sent to pharmacy for id. Pt continues with diarrhea, poor appetite. Denies nausea. Will continue to monitor, notify MD with changes.
[2020-06-06 19:25] LABS: Troponin I 0.026 ng/mL (0.01-0.034)
[2020-06-06] MEDS: MESALAMINE 1200 MG 1200 EACH PO (22:05)
[2020-06-06] MEDS: METOPROLOL ER 25 MG TABLET 12.5 MG PO (22:06)
[2020-06-06] MEDS: LIDOCAINE JELLY 2% 5 ML 1 APPLIC TOP (22:07)
[2020-06-07] VITALS (17 sets, daily range): BP systolic 117–134; BP diastolic 54–72; PULSE 66–77; RESP 16–28; TEMP 36–37.4; O2SAT 94–100
[2020-06-07] MEDS: ACETAMINOPHEN 325 MG TABLET 650 MG PO ×2 (00:04→09:36)
[2020-06-07] MEDS: SODIUM CHLORIDE 0.9% 1,000 ML 125 ML IV (02:21)
[2020-06-07 04:58] LABS: Hematocrit 23.6 % (41-53); Hemoglobin 7.7 g/dL (13.5-17.5); Mean Corpuscular HGB Conc 32.6 % (30-36); Mean Corpuscular Hemoglobin 26.4 PG (26-34); Mean Corpuscular Volume 81.1 fL (80-100); Platelet Count 41 X10^3/uL (150-400); Red Blood Cell Count 2.91 X10^6/uL (4.5-5.9)
[2020-06-07 05:00] LABS: Add Manual Diff / Slide Review YES
[2020-06-07 05:01] LABS: Alanine Aminotransferase 34 IU/L (<50); Albumin 2.7 g/dL (3.5-5.0); Albumin Globulin Ratio 0.9 (1.0-2.8); Alkaline Phosphatase 60 U/L (38-126); Aspartate Aminotransferase 55 IU/L (17-59); BUN Creatinine Ratio 11.9 (6-22); Bilirubin Total 0.2 mg/dL (0.2-1.3); Bilirubin Unconjugated 0.1 mg/dL (0.0-1.1); Blood Urea Nitrogen 19 mg/dL (9-20); Carbon Dioxide 31 mmol/L (22-32); Chloride 103 mmol/L (98-107); Estimated Glomerular Filt Rate 43.3 mL/min (>60); Globulin 2.9 g/dL (1.7-4.1); Glucose 96 mg/dL (80-110); HEMOLYSIS < 15 (0-50); Magnesium 1.8 mg/dL (1.6-2.3); Potassium 3.9 mmol/L (3.4-5.1); Sodium 134 mmol/L (137-145); Total Protein 5.6 g/dL (6.3-8.2)
[2020-06-07 05:02] LABS: White Blood Cell Count 0.9 X10^3/uL (4.5-11.0)
[2020-06-07 05:41] LABS: Neutrophils Absolute Manual 495 /uL (3000-5900); Total Cells Counted 100
[2020-06-07 05:42] LABS: Polychromasia 1+
[2020-06-07] MEDS: LEVOTHYROXINE 88 MCG TABLET PO (05:55)
[2020-06-07] MEDS: LOPERAMIDE 2 MG CAPSULE PO ×2 (05:55→18:19)
--- NOTE | 2020-06-07 06:23 | DI.RAD.S_ITS ---
PROCEDURE: XR CHEST 2V INDICATIONS: change on lung sounds TECHNIQUE: 2 views of the chest were acquired. COMPARISON: [facility], CT, CT CHEST ABD PEL W CON, 04/21/2020, 13:20. [facility], CR, XR CHEST 2V, 06/06/2020, 10:44. FINDINGS: Surgical changes and devices: Right-sided PICC line with the catheter tip at the lower 3rd of the SVC. Lungs and pleura: Mild hazy airspace opacity at the lung bases. Question of trace left pleural effusion. No pneumothorax. Mediastinum: Mediastinal contours are unchanged. Heart size appears prominent. Bones and chest wall: No suspicious bony abnormalities. Scoliosis. Soft tissues appear unremarkable. IMPRESSION: Similar mild hazy opacity at the lung bases. This could be due to atelectasis, edema, or pneumonia. Question of trace left pleural effusion. This could also be due to prominent pericardial fat pad which is seen on prior CT. Dictated by: Yandel River M.D. on 06/07/2020 at 8:11 Approved by: Yandel River M.D. on 06/07/2020 at 8:16
--- NOTE | 2020-06-07 07:28 | PC.NURSE ---
Shift Note-Patient awake most of night continuously incontinent of diarrhea, sample finally obtained in am, sent to lab. Rash to perineum erythemic and pain full. Lido cream applied, Tylenol given. Patient has been fatigued and oriented x3. As night progressed, he developed upper airway congestion and coarse crackles, the in house AGILE TEST LEAD practitioner informed, NS @ 125ml/hr DC'd. Also informed her of am critical lab values.
[2020-06-07] MEDS: LACTOBACILLUS ACIDOPHILUS TABLET 1 EACH PO (09:33)
[2020-06-07] MEDS: METOPROLOL ER 25 MG TABLET 12.5 MG PO (09:33)
[2020-06-07] MEDS: predniSONE 5 MG TABLET 2.5 MG PO ×2 (09:34→18:08)
[2020-06-07] MEDS: LIDOCAINE JELLY 2% 5 ML 1 APPLIC TOP (09:36)
[2020-06-07] MEDS: MESALAMINE 1200 MG 1200 EACH PO ×2 (09:36→18:08)
[2020-06-07 10:00] LABS: Adenovirus F 40/41 Not Detected (Not Detect); Astrovirus Not Detected (Not Detect); Campylobacter Not Detected (Not Detect); Clostridium difficile toxin AB Not Detected (Not Detect); Cryptosporidium Not Detected (Not Detect); Cyclospora cayetanensis Not Detected (Not Detect); Entamoeba histolytica Not Detected (Not Detect); Enteroaggregative E.coli Not Detected (Not Detect); Enteropathogenic E.coli Not Detected (Not Detect); Enterotoxigenic E.coli It/st Not Detected (Not Detect); Giardia lamblia Not Detected (Not Detect); Norovirus GI/GII Not Detected (Not Detect); Plesiomonsa shigelloides Not Detected (Not Detect); Rotavirus A Not Detected (Not Detect); Salmonella Not Detected (Not Detect); Sapovirus Not Detected (Not Detect); Shiga-like toxin-prod E.coli Not Detected (Not Detect); Shigella/Enteroinvasive E.coli Not Detected (Not Detect); Vibrio Not Detected (Not Detect); Vibrio cholerae Not Detected (Not Detect); Yersinia enterocolitica Not Detected (Not Detect)
--- NOTE | 2020-06-07 11:21 | PT.IPTN ---
Physical Therapy Treatment Note M2 PT-IP Current Condition Start: 06/05/20 08:16 Freq: NEEDED Status: Active Protocol: Document 06/07/20 11:29 MA (Rec: 06/07/20 11:46 MA [email or web address]) Physical Therapy Current Condition Current Condition Evaluation Date 06/05/20 Treatment Diagnosis Anal squamous cell carcinoma; Gereralized weakness Onset Date 06/04/20 M3 PT-IP Subjective Start: 06/05/20 08:16 Freq: NEEDED Status: Active Protocol: Document 06/07/20 11:29 MA (Rec: 06/07/20 11:46 MA [email or web address]) Subjective Physical Therapy Visit Type Type Treatment Note Visit Start Time 11:02 Visit Stop Time 11:21 Total Visit Minutes 19 Physical Therapy Visit Comments Patient Comments Pt c/o being cold and tired. He is initially agreeable to therapy but refuses to sit up or walk once blankets are removed. Nurse says medication is making pt extremely lethargic. Therapy Pain Assessment Pain When Pain Assessed During Mobility Pain Present Pain Present Pain Reported Location Low Back Intensity 10 Scale Used Numeric (0 - 10) Pain Behaviors Facial Grimacing,Moaning Pain Management Techniques Re-positioning M4 PT-IP Mobility and Gait Start: 06/05/20 08:16 Freq: NEEDED Status: Active Protocol: Document 06/06/20 10:35 AB (Rec: 06/06/20 11:57 AB [id number]) PT-Bed Mobility Assessment Supine to Sit Supine to Sit Maximum Assistance,2 Person Assistance PT-Transfer Assessment Sit to and From Stand Sit to and from Stand Moderate Assistance Equipment Transfer Assistive Device Gait Belt,Front Wheeled Walker Orthotic/Prosthetic Devices or Brace: No Transfers Transfer Destination Wheelchair Transfer Technique Stand Step Pivot Transfer Ability Level of Assist Minimal Assistance,1 Person Assistance,Use of Upper Extremities Comments Mobility Comments per nurse, pt was over medicated and was given narcan this morning and is drowsy. imaging account manager came in and requested assistance to transfer pt to w/c for x-ray procedure. pt completed supine to sit max A x 2 due to drowsiness and decrease following directions. pt was able to wake up and completed sit to stand mod A and cues and took ~ 5 steps to w/c min A using FWW. Left pt with imaging account manager and nurses. Gait Assessment Gait Gait Assistance Required: Minimum Assistance,1 Person Assist Distance (Feet) 5 Able to Maintain Weight Bearing Status Yes During Gait Assistive Devices Assistive Device Gait Belt,Front Wheeled Walker Orthotic/Prosthetic Devices or Brace: No Gait Deviations General Gait Pattern Antalgic,Decreased Stride Length,Decreased Feet Clearance Factors Limiting Gait Function Factors Limiting Gait Function Decreased Activity Tolerance, Decreased Strength,Poor Balance,Poor Safety Awareness M5 PT-IP Objective Assessments Start: 06/05/20 08:16 Freq: NEEDED Status: Active Protocol: Document 06/05/20 12:11 DE (Rec: 06/05/20 12:41 DE [email or web address]) Orientation Orientation/Cognition Level of Alertness Lethargic Orientation Name,Age,Birthday,Month,Date, Year,Day of Week,Place, Situation Language Function Ability No Deficits Noted Safety Awareness Understands Safety Issues Memory Description No Deficits Noted Gross Range of Motion Lower Extremity ROM Assessment Within Functional Limits Strength Lower Extremity Strength Assessment Bilaterally Impaired Comments Strength Comments Generalized weakness and fatigue Coordination Assessment Gross Coordination Gross Coordination WNL Sensation Assessment Sensation Gross Sensation WNL Light Touch Intact Muscle Tone Muscle Tone WNL Yes M6 PT-IP Treatment Start: 06/05/20 08:16 Freq: NEEDED Status: Active Protocol: Document 06/07/20 11:29 MA (Rec: 06/07/20 11:46 MA [email or web address]) Physical Therapy Treatment Exercises Exercises Ankle Pumps,Quad Sets,Heel Slides Other Treatments Other Treatment Performed Performed ankle pumps with constant cues to stay on task. During heel slides, pt c/o 10 /10 pain in low back and needed Mod A to assist pulling heel back. Attempted quad sets but pt perseverating, repeating the word cold over and over. Discussed with pt the importance of working with therapy. Talked about how he will go to SNF if he does not meet his goals. Pt agreeable to trying to walk in the hallway tomorrow during session. Left pt hooked up to heart monitor, pulse ox, O2 via NC, all needs within reach . Spoke to nurse about getting pt to sit in room chair the next time he gets up to go to the bathroom. M7 PT-IP Assessment and Plan Start: 06/05/20 08:16 Freq: NEEDED Status: Active Protocol: Document 06/07/20 11:29 MA (Rec: 06/07/20 11:46 MA [email or web address]) PT Summary Assessment and Plan Potential Rehabilitation Potential Fair Summary Impairments Pain,ROM,Strength,Balance, Coordination,Sensation,Tone, Cognition,Bed Mobility, Transfers,Gait,Activity Tolerance Progress Towards Goals Slow Progress due to Medical Issues,Slow Progress due to Activity Tolerance Assessment Summary Pt initially agreeable to therapy and getting up to walk . Once blankets are removed, pt changed his mind and refused to get up, perseverating on the word cold. MACHINE UMBRELLA TIPPER was able to convince pt to try some exercises in bed if he got to keep his upper body covered. Pt needed constant cues to stay on task, could not keep eyes open for long, and c/o of 10/10 low back pain during heel slides. Goals Bed Mobility Goal Standby Assistance Transfer Goal Standby Assistance Gait Goal Standby Assistance Gait Distance 100 Other Goals Pt will perform 2 steps up and down CGA without railing. Days to Meet Goals 5 Frequency of Treatment Frequency Of Treatment Once a Day Treatment Plan Physical Therapy Treatment Plan Bed Mobility Training,Transfer Training,Gait Training, Therapeutic Exercise,Balance Retraining,Post Op Education, Discharge Planning,Hot or Cold Pack,Neuromuscular Re-ed Recommendations To Nursing Amount of Assist Needed 1 Person Assist Discharge Recommendations PT Discharge Recommendations Home with Assistance,Home Health,SNF Rehab Equipment Needed for Home Before FWW if going home. Discharge Transportation Needs at Discharge Private Vehicle,Wheelchair/ Cabulance
--- NOTE | 2020-06-07 12:09 | OT.IPNOTE ---
Pt not feeling well and able to assist to help re-position pt and educated to try to keep his mouth close to breath in through his nose as having O2 on. Pt states not wanting to OT today, in addition pt's Hcb 7.7, Hct 23.6. To check on pt tomorrow. NO charge
[2020-06-07] MEDS: FUROSEMIDE 20 MG/2 ML VIAL IV (12:43)
--- NOTE | 2020-06-07 15:23 | P.PN_ITS ---
Subjective Subjective Date Patient Seen: 06/07/20 Time Patient Seen: 15:24 Interval history: This is a 70 year old male with PMH of ulcerative colitis, adrenal insufficiency, hypothyroidism, and recent diagnosis of locally advanced anal squamous cell carcinoma who was admitted with acute dehydration, ANA, and rectal pain. Today he has a variety of complaints, including worsening shortness of breath, diarrhea, and chest discomfort. Yesterday he had an echocardiogram, negative cardiac enzymes. Echocardiogram revealed left ventricular hypertrophy with a left ventricular outflow tract obstruction. Overnight cardiology recommended fluids and a beta-sonia. Fluids were attempted overnight however he became more short of breath and appeared volume overloaded. Re discussed with Cardiology today and recommended increased beta- sonia dose with diuresis as needed. He will be given 20 mg of Lasix prior to a transfusion, and his breathing appears more comfortable this morning. Am transfusing him for symptomatic anemia as his counts continue to fall from his chemotherapy and hemoglobin is now 7.7. The patient is very fatigued, and did have a goals of care discussion today. He still wants to continue treatment, but not the same regimen of chemotherapy, but would be interested in further radiation or alternative options that do not make him this fatigued. His fluid status has been very difficult to manage given his outflow tract obstruction and solitary kidney as his creatinine seemingly has fluctuated between 1 and 2, but continuously increases when not receiving supplemental fluids. Was able to send GI panel which was negative for infectious etiology. Exam Vital Signs (past 8 hours): - 06/07/20 08:00 06/07/20 11:57 06/07/20 13:30 Temperature 98.4 F 98.4 F Pulse Rate 66 71 72 Respiratory Rate 26 H 16 24 Blood Pressure 124/72 127/69 Pulse Oximetry 96 94 06/07/20 15:20 Temperature 98.4 F Pulse Rate 72 Respiratory Rate 16 Blood Pressure 127/69 Pulse Oximetry Oxygen Delivery Method Nasal Cannula Oxygen Flow Rate 3 Narrative Exam Narrative: General: Elderly male sitting in bed and in no acute distress, appears lethargic and chronically ill, pale HEENT: Normocephalic, atraumatic. External ears without defect. Pupils equal, r ound, and reactive to light. Anicteric sclerae, moist conjunctivae, and no lid lag. Oropharynx free of erythema and cobble stoning with moist mucosa. No ulcerations in mouth. Neck: Supple with full range of motion. No jugular venous distension. No lymphadenopathy or thyromegaly. Cardiovascular: Regular rate and rhythm without rubs, or gallops but systolic murmur at LSB appreciated, 2-3/6. Pulmonary: Clear to auscultation bilaterally without crackles, wheezes, or rhonchi. slightly decreased respiratory drive. Abdomen: Soft, obese, bowel sounds present, nontender, nondistended. Extremities: No clubbing, cyanosis or edema. Skin: Normal temperature, turgor, and texture; no rash, ulcers, or subcutaneous nodules appreciated. Neurological: Cranial nerves grossly intact. Generalized weakness without focal neurological deficit. Psychiatric: Depressed mood and affect. Alert and oriented Objective Imaging Echo: Radiologist's impression: Interpretation Summary Normal sinus rhythm. Normal LV size; proximal septal thickening noted. There is LVOT obstruction during Valsalva with peak velocity of 3.1 m/sec and peak gradient of 38 mm Hg. Rest V max is 1 m/sec and peak gradient of 10 mm Hg. EF is 60-65%. No valvular abnormalities. Mildly dilated ascending aorta 4 cm diameter and aortic root. No prior study available for comparison. Labs Result Diagrams: 06/07/20 04:30 06/07/20 04:30 Labs: Laboratory Results - last 24 hr 06/06/20 06/07/20 06/07/20 18:10 04:30 04:30 WBC 0.9 L* RBC 2.91 L Hgb 7.7 L Hct 23.6 L MCV 81.1 MCH 26.4 MCHC 32.6 RDW 16.0 H Plt Count 41 L Neut % (Auto) Not Reportable Lymph % (Auto) Not Reportable [place] % (Auto) Not Reportable Eos % (Auto) Not Reportable Baso % (Auto) Not Reportable Lymph # (Auto) Not Reportable [place] # (Auto) Not Reportable Baso # (Auto) Not Reportable Total Counted 100 Seg Neutrophils % 55.0 Lymphocytes % (Manual) 26.0 Monocytes % (Manual) 16.0 H Eosinophils % (Manual) 2.0 Basophils % (Manual) 1.0 Neutrophils # (Manual) 495 L RBC Morphology See below Polychromasia 1+ H Sodium 134 L Potassium 3.9 Chloride 103 Carbon Dioxide 31 BUN 19 Creatinine 1.59 H Estimated GFR 43.3 L BUN/Creatinine Ratio 11.9 Glucose 96 Calcium 8.0 L Magnesium 1.8 Total Bilirubin 0.2 Conjugated Bilirubin 0.0 Unconjugated Bilirubin 0.1 AST 55 ALT 34 Alkaline Phosphatase 60 Troponin I 0.026 Total Protein 5.6 L Albumin 2.7 L Globulin 2.9 Albumin/Globulin Ratio 0.9 L Stl C. cayetanensis PCR Stool Rotavirus (PCR) Stool Adenovirus (PCR) Stool Astrovirus (PCR) Stool Cryptosporidium PCR Stl E.coli Shiga Tox PCR St Sh/Enteroin Ecoli PCR Stool E coli O157 PCR Stl Enterotoxigenic E PCR Stool EPEC (PCR) Stl E. histolytica PCR Stool Giardia Lamblia PCR Stool Sapovirus (PCR) Stl P. shigelloides PCR St Y.enterocolitica PCR Stool Vibrio (PCR) Stl Vibrio cholerae PCR Stl Enteroaggr Ecoli PCR Stl Norovirus GI/GII PCR Campylobacter (PCR) C. difficile Tox (PCR) Salmonella (PCR) Blood Type Antibody Screen Crossmatch 06/07/20 06/07/20 07:30 12:30 WBC RBC Hgb Hct MCV MCH MCHC RDW Plt Count Neut % (Auto) Lymph % (Auto) [place] % (Auto) Eos % (Auto) Baso % (Auto) Lymph # (Auto) [place] # (Auto) Baso # (Auto) Total Counted Seg Neutrophils % Lymphocytes % (Manual) Monocytes % (Manual) Eosinophils % (Manual) Basophils % (Manual) Neutrophils # (Manual) RBC Morphology Polychromasia Sodium Potassium Chloride Carbon Dioxide BUN Creatinine Estimated GFR BUN/Creatinine Ratio Glucose Calcium Magnesium Total Bilirubin Conjugated Bilirubin Unconjugated Bilirubin AST ALT Alkaline Phosphatase Troponin I Total Protein Albumin Globulin Albumin/Globulin Ratio Stl C. cayetanensis PCR Not detected Stool Rotavirus (PCR) Not detected Stool Adenovirus (PCR) Not detected Stool Astrovirus (PCR) Not detected Stool Cryptosporidium PCR Not detected Stl E.coli Shiga Tox PCR Not detected St Sh/Enteroin Ecoli PCR Not detected Stool E coli O157 PCR Not detected Stl Enterotoxigenic E PCR Not detected Stool EPEC (PCR) Not detected Stl E. histolytica PCR Not detected Stool Giardia Lamblia PCR Not detected Stool Sapovirus (PCR) Not detected Stl P. shigelloides PCR Not detected St Y.enterocolitica PCR Not detected Stool Vibrio (PCR) Not detected Stl Vibrio cholerae PCR Not detected Stl Enteroaggr Ecoli PCR Not detected Stl Norovirus GI/GII PCR Not detected Campylobacter (PCR) Not detected C. difficile Tox (PCR) Not detected Salmonella (PCR) Not detected Blood Type O Positive Antibody Screen Negative Crossmatch See Detail [facility] Medical History Acquired hypothyroidism Acute dehydration Anal cancer Anal squamous cell carcinoma (~02/2020) Anemia (10/13/13) C. 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 Syncope Ulcerative colitis Ulcerative colitis Ventral hernia without obstruction or gangrene (08/07/16) Surgical History Fractures History of neck surgery (~2006) History of nephrectomy (~08/2015) History of third molar tooth extraction History of tonsillectomy (~1955) History of tonsillectomy (~1956) History of tonsillectomy (~1959) Status post colonoscopy Family History Mother Congestive heart failure Father Liver failure Alzheimer's dementia Social History household members: spouse Smoking Status: Former smoker alcohol intake: never Assessment & Plan Assessment & Plan narrative: This is a 70 year old male with PMH of ulcerative colitis, adrenal insufficiency, hypothyroidism, and recent diagnosis of locally advanced anal squamous cell carcinoma who was admitted with acute dehydration, ANA, and rectal pain who developed a toxic metabolic encephalopathy this morning and new hypoxemia. 1. Toxic metabolic encephalopathy, acute, not present on admission, improved. - suspect secondary to narocotic pain medication use. He has required 2 doses of narcan with improvement in mental status. CT head negative. - other possible causes include worsening anemia, infection, hypoxia though suspect the hypoxia is more due to his encephalopathy. 2. acute hypoxemic respiratory failure, not present on admission - suspect due to decreased respiratory drive in the setting of encephalopathy, in combination with volume overload with fluids for presumed dehydration and unknown previous diastolic heart failure and LVOT obstruction. - proBNP elevated, CXR showing congestion. TTE with evidence of diastolic dysfunction. Have started beta sonia given LVOT obstruction as noted below, cardiology recommends diuresis as needed. Will diurese prior to transfusion today, perhaps hypoxia related to worsening anemia. 3. Acute on chronic diastolic heart failure, not present on admission. - continue diuresis as needed per cardiology recommendations. Fluid balance remains difficult in this patient given his solitary kidney and now LVOT obstruction. Likely acute failure from volume for renal perfusion. 4. Acute kidney injury, present on admission, improved - suspected do to dehydration in the setting of diarrhea and decreased PO intake / dehydration. Function continues to decline today, likely in the setting of decreased intake from ? encephalopathy now. Will check a renal US today to r/o obstructive causes. - Cr 1.49 > 1.25 > 1.58 > 2.09 Given 1 L fluid bolus with Will continue to follow creatinine, treat encephalopathy once causes is accurately identified. - appreciate dietary consultation. 5. Acute on chronic rectal pain, secondary to locally advanced anal squamous cell carcinoma and diarrhea, present on admission. Active. -Patient is receiving radiation to area precipitating pain (received 6 rounds thus far and missed 2 rounds due to rectal pain), as well as, acute on chronic diarrhea worsened with chemotherapy 5 FU and mitomycin C. -Continue pain control with: 2% lidocaine jelly applied to the anus three times daily, hydrocortisone suppository twice daily as needed, will decrease narcotics today given encephalopathy and adjust as needed. His pain is not currently an issue even after 2 doses of narcan. -Per Dr. Quan of oncology, the patient may use Immodium 2 mg 4 times daily as needed for persistent diarrhea as 5 FU precipitates severe diarrhea. -Received 2 L boluses in ED. Continued IV fluid hydration until adequately hydrated then discontinued, trialed another bolus today however now with hypoxia and possible overload, will continue to readdress volume status. -GI panel pending given diarrhea, diarrhea has improved and have been unable to collect thus far. 6. Acute on chronic generalized weakness, present on admssion. Active. -The patient reports progressive weakness for 1 year but worse over the last 3 days. The patient denies falls. -Multifactorial and secondary to malignancy, deconditioning, and now acutely worsened due to chemotherapy and radiation. -Ordered physical therapy evaluation and treatment, pending. 7. Locally advanced anal squamous cell carcinoma, present on admission. Stable. -Patient has partially obstructing squamous cell carcinoma of the anus/rectum. He is followed by Dr. Quan of oncology and Dr. Beasley of radiation oncology. -Patient recently started 5 FU and mitomycin C with his first cycle on 05/31/20 and has underwent 6 rounds of radiation (missed 2 due to rectal pain) which he reports he is suppose to do daily for 4 weeks total. -Patient has mild pancytopenia from recent chemotherapy and continue to monitor CBC closely and for signs of infection. 8. Ulcerative colitis, chronic, present on admission. Stable. -Continue home prednisone 2.5 mg twice daily and mesalamine 1.2 mg twice daily. 9. Adrenal insufficiency, chronic and secondary to chronic steroid use, present on admission. Stable. -Continue home prednisone 2.5 mg twice daily. 0. Hypothyroidism, chronic, present on admission. Stable. -Continue home levothyroxine 88 mcg daily. 11. pancytopenia, acute, present on admission - secondary to chemotherapy as noted above. Transfuse for Hg <7, Plt <10 unless active bleeding or symptomatic. 12. 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 - seen on TTE, normal EF. Mild per cardiology. Recommended beta sonia which has been started at 25 mg BID, diurese as needed. Code status: Full code, surrogate decision maker is designated as patient is spouse VTE prophylaxis: SCDs, held chemical prophylaxis due to pancytopenia Quality VTE Deep Vein Thrombosis/Pulmonary Embolism Present on Admission: No
--- NOTE | 2020-06-07 15:44 | CM.DPC ---
DCP Cont: Per MD, pt remains medically complex with creat down again today. Cardiology consult recommending fluids but pt has been getting fluid overloaded and pt may need blood transfusion. MD may consult Oncologist further to determine if Pall Care Consult appropriate. Per PT/OT, pt quite weak still and recommending HH vs SNF pending his progress. Plan: SW to follow closely towards determining needs at d/c and spouse has been bedside and interested in Full Code and full tx for patient but MD may discuss further with patient again. NONI Mayes
[2020-06-07] MEDS: METOPROLOL ER 25 MG TABLET PO (20:59)
--- NOTE | 2020-06-07 22:11 | PC.NURSE ---
Shift note: 1 unit PRBC infused this shift. Breath sounds with coarse crackles throughout. MD notified, instructed to monitor and if O2 needs increase, notify again. Noted when pt up to [facility] that he has a small dime size area of blisters on his L buttock and a smaller on on the right side. MD made aware. Pt states he has never had shingles and has been vaccinated, no exposure that he is aware of. JANETH PICC flushed with heparin after blood infused.
[2020-06-08] VITALS (15 sets, daily range): BP systolic 101–146; BP diastolic 55–70; PULSE 74–80; RESP 17–22; TEMP 36.2–36.8; O2SAT 86–97
--- NOTE | 2020-06-08 06:13 | PC.NURSE ---
Patient with blisters to back/buttocks suspect for shingles. AMA Kumar aware - awaiting for her to visualize and assess. Attempted to draw blood from PICC line at 0530 - patient disgruntled; refusing, stating he wants to just sleep. Currently asleep, will reattempt when awake. Lungs with crackles continued - hospitalist aware. Sp02 97% on 4LNC. No increase in oxygen needs when patient is compliant with nasal cannula. Denies SOB. Received one dose of lasix pre-transfusion on evening shift. Up to BSC frequently to stool.
[2020-06-08] MEDS: LEVOTHYROXINE 88 MCG TABLET PO (06:53)
[2020-06-08] MEDS: SODIUM CHLORIDE 0.9% FLUSH 10 ML IV (06:53)
[2020-06-08 07:09] LABS: Add Manual Diff / Slide Review NO; Basophils Absolute Auto 0 /uL (0-100); Basophils Percent Auto 0.4 % (0-2); Eosinophils Absolute Auto 0 /uL (0-450); Eosinophils Percent Auto 1.8 % (2-4); Hematocrit 26.9 % (41-53); Hemoglobin 8.8 g/dL (13.5-17.5); Lymphocytes Absolute Auto 500 /uL (1100-4500); Lymphocytes Percent Auto 23.4 % (25-40); Mean Corpuscular HGB Conc 32.7 % (30-36); Mean Corpuscular Hemoglobin 26.4 PG (26-34); Mean Corpuscular Volume 80.6 fL (80-100); Monocytes Absolute Auto 200 /uL (0-900); Monocytes Percent Auto 10.3 % (3-14); Neutrophils Absolute Auto 1400 /uL (1500-7000); Neutrophils Percent Auto 64.1 % (50-75); Platelet Count 49 X10^3/uL (150-400); Red Blood Cell Count 3.34 X10^6/uL (4.5-5.9); Red Cell Distribution Width 16.3 % (11.6-14.8); White Blood Cell Count 2.2 X10^3/uL (4.5-11.0)
[2020-06-08 07:19] LABS: Alanine Aminotransferase 32 IU/L (<50); Albumin 3.2 g/dL (3.5-5.0); Alkaline Phosphatase 74 U/L (38-126); Aspartate Aminotransferase 39 IU/L (17-59); BUN Creatinine Ratio 12.9 (6-22); Bilirubin Total 0.6 mg/dL (0.2-1.3); Bilirubin Unconjugated 0.4 mg/dL (0.0-1.1); Blood Urea Nitrogen 16 mg/dL (9-20); Calcium 8.6 mg/dL (8.4-10.2); Carbon Dioxide 32 mmol/L (22-32); Chloride 100 mmol/L (98-107); Estimated Glomerular Filt Rate 57.6 mL/min (>60); Globulin 3.1 g/dL (1.7-4.1); Glucose 90 mg/dL (80-110); HEMOLYSIS < 15 (0-50); Magnesium 1.6 mg/dL (1.6-2.3); Potassium 3.7 mmol/L (3.4-5.1); Sodium 136 mmol/L (137-145); Total Protein 6.3 g/dL (6.3-8.2)
[2020-06-08] MEDS: LACTOBACILLUS ACIDOPHILUS TABLET 1 EACH PO (08:36)
[2020-06-08] MEDS: FUROSEMIDE 40 MG/4 ML VIAL IV (08:37)
[2020-06-08] MEDS: predniSONE 5 MG TABLET 2.5 MG PO ×2 (08:37→17:21)
[2020-06-08] MEDS: METOPROLOL ER 25 MG TABLET PO (08:37)
[2020-06-08] MEDS: POTASSIUM CHLORIDE 20 MEQ TAB PO (08:37)
[2020-06-08] MEDS: MAGNESIUM SULFATE 2 GM/50 ML PIGGYBACK IV (08:37)
[2020-06-08] MEDS: LOPERAMIDE 2 MG CAPSULE PO ×2 (08:38→22:36)
[2020-06-08] MEDS: MESALAMINE 1200 MG 1200 EACH PO ×2 (08:38→17:21)
[2020-06-08] MEDS: LIDOCAINE PATCH 1 EACH ADH..PATCH TOP (08:38)
--- NOTE | 2020-06-08 12:18 | P.PN_ITS ---
Subjective Subjective Date Patient Seen: 06/08/20 Time Patient Seen: 08:00 Interval history: This is a 70 year old male with PMH of ulcerative colitis, adrenal insufficiency, hypothyroidism, and recent diagnosis of locally advanced anal squamous cell carcinoma who was admitted with acute dehydration, ANA, and rectal pain. Today he has a variety of complaints, including worsening shortness of breath, diarrhea, and chest discomfort. He feels a bit stronger today after his transfusion yesterday. Still feels short of breath, but now on only 1.5 L O2 today. Continues to have intermittent diarrhea, improved with opiates and loperamide. His cell counts are improved today, hopefully suggestive that chemo toxicity is now improving. He remains slightly volume overloaded, continue to diurese today with 40 mg IV lasix and will continue to re-assess. Exam Vital Signs (past 8 hours): - 06/08/20 04:52 06/08/20 08:00 06/08/20 10:13 Temperature 97.4 F L 98.2 F Pulse Rate 74 74 Respiratory Rate 20 17 Blood Pressure 136/63 146/70 H Pulse Oximetry 97 94 95 06/08/20 11:57 06/08/20 11:58 Temperature Pulse Rate 76 Respiratory Rate Blood Pressure Pulse Oximetry 97 96 Oxygen Delivery Method Room Air Oxygen Flow Rate 1.5 Narrative Exam Narrative: General: Elderly male sitting in bed and in no acute distress, appears lethargic and chronically ill, pale HEENT: Normocephalic, atraumatic. External ears without defect. Pupils equal, round, and reactive to light. Anicteric sclerae, moist conjunctivae, and no lid lag. Oropharynx free of erythema and cobble stoning with moist mucosa. No ulcerations in mouth. Neck: Supple with full range of motion. No jugular venous distension. No lymphadenopathy or thyromegaly. Cardiovascular: Regular rate and rhythm without rubs, or gallops but systolic murmur at LSB appreciated, 2-3/6. Pulmonary: Bibasilar crackles without wheezing, poor effort, no acute distress. Abdomen: Soft, obese, bowel sounds present, nontender, nondistended. Extremities: No clubbing, cyanosis or edema. Skin: Normal temperature, turgor, and texture. Gluteal crease erythema with punctate pustular lesions, consistent with folliculitis. Neurological: Cranial nerves grossly intact. Generalized weakness without focal neurological deficit. Psychiatric: Depressed mood and affect. Alert and oriented Objective Labs Result Diagrams: 06/08/20 07:04 06/08/20 07:04 Labs: Laboratory Results - last 24 hr 06/07/20 06/08/20 06/08/20 12:30 07:04 07:04 WBC 2.2 L D RBC 3.34 L Hgb 8.8 L Hct 26.9 L MCV 80.6 MCH 26.4 MCHC 32.7 RDW 16.3 H Plt Count 49 L Neut % (Auto) 64.1 Lymph % (Auto) 23.4 L [place] % (Auto) 10.3 Eos % (Auto) 1.8 L Baso % (Auto) 0.4 Neut # (Auto) 1400 L Lymph # (Auto) 500 L [place] # (Auto) 200 Eos # (Auto) 0 Baso # (Auto) 0 Sodium 136 L Potassium 3.7 Chloride 100 Carbon Dioxide 32 BUN 16 Creatinine 1.24 Estimated GFR 57.6 L BUN/Creatinine Ratio 12.9 Glucose 90 Calcium 8.6 Magnesium 1.6 Total Bilirubin 0.6 Conjugated Bilirubin 0.0 Unconjugated Bilirubin 0.4 AST 39 ALT 32 Alkaline Phosphatase 74 Total Protein 6.3 Albumin 3.2 L Globulin 3.1 Albumin/Globulin Ratio 1.0 Blood Type O Positive Antibody Screen Negative Crossmatch See Detail [facility] Medical History Acquired hypothyroidism Acute dehydration Anal cancer Anal squamous cell carcinoma (~02/2020) Anemia (10/13/13) C. 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 Syncope Ulcerative colitis Ulcerative colitis Ventral hernia without obstruction or gangrene (08/07/16) Surgical History Fractures History of neck surgery (~2006) History of nephrectomy (~08/2015) History of third molar tooth extraction History of tonsillectomy (~1955) History of tonsillectomy (~1956) History of tonsillectomy (~1959) Status post colonoscopy Family History Mother Congestive heart failure Father Liver failure Alzheimer's dementia Social History household members: spouse Smoking Status: Former smoker alcohol intake: never Assessment & Plan Assessment & Plan narrative: This is a 70 year old male with PMH of ulcerative colitis, adrenal insufficiency, hypothyroidism, and recent diagnosis of locally advanced anal squamous cell carcinoma who was admitted with acute dehydration, ANA, and rectal pain who developed a toxic metabolic encephalopathy and new hypoxemia, now improving. 1. Toxic metabolic encephalopathy, acute, not present on admission, resolved. - suspect secondary to narocotic pain medication use. He has required 2 doses of narcan with improvement in mental status. CT head negative. - other possible causes include worsening anemia, infection, hypoxia though suspect the hypoxia is more due to his encephalopathy. 2. acute hypoxemic respiratory failure, not present on admission - suspect due to decreased respiratory drive in the setting of encephalopathy, in combination with volume overload with fluids for presumed dehydration and unknown previous diastolic heart failure and LVOT obstruction. - proBNP elevated, CXR showing congestion. TTE with evidence of diastolic dysfunction. Have started beta sonia given LVOT obstruction as noted below, cardiology recommends diuresis as needed. - will diurese with 40 mg x1 today, remain cautious given solitary kidney and tenuous fluid status. 3. Acute on chronic diastolic heart failure, not present on admission. - continue diuresis as needed per cardiology recommendations. Fluid balance remains difficult in this patient given his solitary kidney and now LVOT obstruction. 4. Acute kidney injury, present on admission, improved - suspected do to dehydration in the setting of diarrhea and decreased PO intake / dehydration. US negative for obstructive causes. - Cr 1.49 > 1.25 > 1.58 > 2.09 now down again to 1.2 after transfusion. Will continue to follow with diuresis now. 5. Acute on chronic rectal pain, secondary to locally advanced anal squamous cell carcinoma and diarrhea, present on admission. Active. -Patient is receiving radiation to area precipitating pain (received 6 rounds thus far and missed 2 rounds due to rectal pain), as well as, acute on chronic d iarrhea worsened with chemotherapy 5 FU and mitomycin C. -Continue pain control with: 2% lidocaine jelly applied to the anus three times daily, hydrocortisone suppository discontinued per patient request, have reduced narcotic dosing to balance pain control with encephalopathy and confusion. -Per Dr. Quan of oncology, the patient may use Immodium 2 mg 4 times daily as needed for persistent diarrhea as 5 FU precipitates severe diarrhea. -Received 2 L boluses in ED. Continued IV fluid hydration until adequately hydrated then discontinued, trialed another bolus today however now with hypoxia and possible overload, will continue to readdress volume status. -GI panel negative for infectious causes. 6. Acute on chronic generalized weakness, present on admssion. Active. -The patient reports progressive weakness for 1 year but worse over the last 3 days. The patient denies falls. -Multifactorial and secondary to malignancy, deconditioning, and now acutely worsened due to chemotherapy and radiation. -Ordered physical therapy evaluation and treatment, pending. 7. Locally advanced anal squamous cell carcinoma, present on admission. Stable. -Patient has partially obstructing squamous cell carcinoma of the anus/rectum. He is followed by Dr. Quan of oncology and Dr. Beasley of radiation oncology. -Patient recently started 5 FU and mitomycin C with his first cycle on 05/31/20 and has underwent 6 rounds of radiation (missed 2 due to rectal pain) which he reports he is suppose to do daily for 4 weeks total. -Patient has mild pancytopenia from recent chemotherapy and continue to monitor CBC closely and for signs of infection. 8. Ulcerative colitis, chronic, present on admission. Stable. -Continue home prednisone 2.5 mg twice daily and mesalamine 1.2 mg twice daily. 9. Adrenal insufficiency, chronic and secondary to chronic steroid use, present on admission. Stable. -Continue home prednisone 2.5 mg twice daily. 0. Hypothyroidism, chronic, present on admission. Stable. -Continue home levothyroxine 88 mcg daily. 11. pancytopenia, acute, present on admission - secondary to chemotherapy as noted above. Transfused 06/07 for symptomatic anemia, Hg 7.7 now 8.8 this AM. He reports improvement in fatigue with transfusion. His counts have risen slightly today. Will continue to follow. 12. 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 - seen on TTE, normal EF. Mild per cardiology. Recommended beta sonia which has been started at 25 mg BID, diurese as needed. Code status: Full code, surrogate decision maker is designated as patient is spouse VTE prophylaxis: SCDs, held chemical prophylaxis due to pancytopenia Dispo: anticipate discharge home with home health or ? SNF depending on PT notes in the next 2-3 days if kidney function stabilizes and respiratory status improves. Quality VTE Deep Vein Thrombosis/Pulmonary Embolism Present on Admission: No
--- NOTE | 2020-06-08 12:29 | PT.IPTN ---
Current Diagnoses Toxic encephalopathy (06/06/20) Physical Therapy Treatment Note M2 PT-IP Current Condition Start: 06/05/20 08:16 Freq: NEEDED Status: Active Protocol: Document 06/07/20 11:29 MA (Rec: 06/07/20 11:46 MA [id number]) Physical Therapy Current Condition Current Condition Evaluation Date 06/05/20 Treatment Diagnosis Anal squamous cell carcinoma; Generalized weakness Onset Date 06/04/20 M3 PT-IP Subjective Start: 06/05/20 08:16 Freq: NEEDED Status: Active Protocol: Document 06/08/20 12:06 DE (Rec: 06/08/20 12:29 DE [id number]) Subjective Physical Therapy Visit Type Type Treatment Note Visit Start Time 10:38 Visit Stop Time 10:58 Total Visit Minutes 20 Notes SPT Chris led session under direct supervision of PT Mckayla. 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 Visits 0 Physical Therapy Visit Comments Patient Comments I need urinal M4 PT-IP Mobility and Gait Start: 06/05/20 08:16 Freq: NEEDED Status: Active Protocol: Document 06/08/20 12:06 DE (Rec: 06/08/20 12:29 DE [id number]) PT-Bed Mobility Assessment Supine to Sit Supine to Sit Contact Guard Assistance,Head of Bed Elevated PT-Transfer Assessment Sit to and From Stand Sit to and from Stand Minimal Assistance,1 Person Assistance,Use of Upper Extremities Equipment Transfer Assistive Device Gait Belt,Front Wheeled Walker Transfers Transfer Destination Bed,Bedside Commode Transfer Technique Stand Step Pivot Transfer Ability Level of Assist Minimal Assistance,1 Person Assistance,Use of Upper Extremities Comments Mobility Comments Pt was lying supine in bed sleeping upon arrival. Pt requested to use the urinal. Pt completed supine to sit at L EOB with elevated HOB and CGA. Pt performed sit to stand with FWW and 1P min assist for stabilizing FWW. Pt was able to manage voiding in the urinal himself in standing without holding onto FWW with 1P min assist for holding up the gown. Pt had bowel movement while urinating in the urinal. Pt transferred to [facility] that was on the R side of pt via stand-step pivot with FWW CGA. After bowel movement, pt stood up from the BS with use of B armrests, FWW, and CGA while pericare was being managed by a therapist. Pt then stood up from BSC with 1P min assist for stabilizing FWW. Pt then transferred back to L EOB and sat down with FWW CGA. Pt did sit to sidelying on L with L bedrail and CGA. Call light placed within reach . Gait Assessment Comments Gait Comments Not performed. Stair Climbing Assessment Comments Stair Climbing Comments Not assessed. PT-Balance Assessment Sitting Balance and Reactions Static Sitting Balance Ability Normal Dynamic Sitting Balance Ability Good Standing Balance and Reactions Static Standing Balance Ability Good Dynamic Standing Balance Ability Fair M5 PT-IP Objective Assessments Start: 06/05/20 08:16 Freq: NEEDED Status: Active Protocol: Document 06/05/20 12:11 DE (Rec: 06/05/20 12:41 DE [id number]) Orientation Orientation/Cognition Level of Alertness Lethargic Orientation Name,Age,Birthday,Month,Date, Year,Day of Week,Place, Situation Language Function Ability No Deficits Noted Safety Awareness Understands Safety Issues Memory Description No Deficits Noted Gross Range of Motion Lower Extremity ROM Assessment Within Functional Limits Strength Lower Extremity Strength Assessment Bilaterally Impaired Comments Strength Comments Generalized weakness and fatigue Coordination Assessment Gross Coordination Gross Coordination WNL Sensation Assessment Sensation Gross Sensation WNL Light Touch Intact Muscle Tone Muscle Tone WNL Yes M6 PT-IP Treatment Start: 06/05/20 08:16 Freq: NEEDED Status: Active Protocol: Document 06/08/20 12:06 DE (Rec: 06/08/20 12:29 CO [id number]) Physical Therapy Treatment Education Education Provided Safety Other Treatments Other Treatment Performed Provided education on safety and role of PT. M7 PT-IP Assessment and Plan Start: 06/05/20 08:16 Freq: NEEDED Status: Active Protocol: Document 06/08/20 12:06 DE (Rec: 06/08/20 12:29 CO [id number]) PT Summary Assessment and Plan Potential Rehabilitation Potential Fair Summary Impairments Pain,ROM,Strength,Balance, Coordination,Sensation,Tone, Cognition,Bed Mobility, Transfers,Gait,Activity Tolerance Progress Towards Goals Slow Progress due to Medical Issues,Slow Progress due to Activity Tolerance Assessment Summary Pt does not demonstrate much improvement and continues to have fatigue and decreased activity tolerance. Pt performed supine to sit at L EOB with elevated and CGA but still requires 1P min assist for stand-step pivot to BSC and back to bed. When asked at the end of session, pt was open to going to SNF. PT recommends SNF in order to improve his activity tolerance , endurance, and strength while receiving / assistance. Goals Bed Mobility Goal Standby Assistance Transfer Goal Standby Assistance Gait Goal Standby Assistance Gait Distance 100 Other Goals Pt will perform 2 steps up and down CGA without railing. Days to Meet Goals 5 Frequency of Treatment Frequency Of Treatment Once a Day Treatment Plan Physical Therapy Treatment Plan Bed Mobility Training,Transfer Training,Gait Training, Therapeutic Exercise,Balance Retraining,Post Op Education, Discharge Planning,Hot or Cold Pack,Neuromuscular Re-ed Recommendations To Nursing Amount of Assist Needed 1 Person Assist Discharge Recommendations PT Discharge Recommendations Home with Assistance,Home Health,SNF Rehab Equipment Needed for Home Before FWW if going home. Discharge Transportation Needs at Discharge Private Vehicle,Wheelchair/ Cabulance Treatment was provided by ADELIA Gaytan and supervised by Mckayla Rubi, GABRIELLA. I personally reviewed this note and agree with its contents.
--- NOTE | 2020-06-08 15:26 | PC.NURSE ---
Pt has been drowsy but awakens to verbal. Answers questions with clear speech. He is irritable and unwilling to participate in parts of assessment at times, making full neuro assessment difficult. He is able to move all extremities but does endorse weakness. He has had multiple small loose stools. He is voiding per urinal. Crackles heard over bilateral lung garcia. Pt had good UOP after IV lasix and able to have O2 weaned to 1L NC with SPO2 95% and greater. Using call light and making needs known.
--- NOTE | 2020-06-08 15:39 | CM.DPNOTE ---
Addendum entered by NONI Davidson 06/11/20 15:17: Discussed referral at [facility]; she was willing to accept but patient would not be able to be actively seeking chemo/radiation, even outpatient appts, because [facility] would bill their facility for these services and SNF cannot afford. Later learned that [facility] was closed for admission over the w/e. Original Note: DCP Cont Reviewed chart. Therapy team recommending SNF and share that patient agreeable today; met w/patient to review DCP. Patient drifts off, has a difficult time breathing, and states god help me during this conversation, very fatigued ...this VIDEO EFFECTS EDITOR attempts to review DCP and option for SNF stay (?) Patient unable to track and/or follow this conversation, patient is upset and states he would like to go home, and this will need to be reviewed w/his . Will return to bedside tomorrow when spouse is present- to review DCP. ALANA
--- NOTE | 2020-06-08 18:01 | OT.IPNOTE ---
Check on pt for Ot treatment and still feeling weak but agreed to try showering tomorrow for OT session, pt agreed would be best for him to go to skilled rehab prior to going home.
--- NOTE | 2020-06-08 18:47 | PC.NURSE ---
Pt is drowsy, but easily arousable. Oriented x2-3. Pt did not know month or day of month. Pt did recall year and day of the week. Pt is fatigued and sleeping most of shift. Pt sat up in chair for ~40 minutes at beginning of shift. Pt with audible expiratory wheeze/rattling. Pt's lungs rhoncorous in all garcia. Pt asked to cough to expectorate secretions with only a small amount of white sputum expectorated. Pt is tachypneic with exertion. Initially on 1 L NC with SPO2 mid 90s. Up to chair for 40 minutes with SPO2 remaining high 90s. Using IS in chair. Desaturation to 80% with transfer back to bed. Pt temporarily turned up to 4 LNC, then 2 L NC when in bed with SPO2 mid 90s. SPO2 is higher when pt is laying on L side than on R side. Pt remains in SR, HR 70s-80s. Occasional PACs. Denies CP or chest pressure. Pt with frequent diarrhea. Poor appetite. Encouraged to drink protein shake, but only able to drink ~1/4 of the shake. Pt with reddened skin in gluteal folds. Barrier cream applied. Pt with several fluid filled pustules on lower back. notified on . Pt drowsy for most of shift, able to awaken and have conversation, but is very fatigued. Fatigue is interfering with pt's ability to get adequate nutrition. Pt requires assistance using urinal, voiding adequate volume. Pt with improving kidney function. Pt received iv lasix this am. Pt with generalized weakness. Pt is able to help with in bed mobility, requires 1-2 people for transfers and personal care.
[2020-06-08] MEDS: LIDOCAINE JELLY 2% 5 ML 1 APPLIC TOP (20:10)
[2020-06-09] VITALS (12 sets, daily range): BP systolic 111–133; BP diastolic 50–93; PULSE 70–80; RESP 13–28; TEMP 36.3–37.1; O2SAT 93–98
--- NOTE | 2020-06-09 03:52 | PC.NURSE ---
0300 report given to Cecy nurse and care transferred. Pt alert and oriented x3 at start of shift. Reports rectum painful only with movement. Incontinent to bowel and bladder.
[2020-06-09] MEDS: LEVOTHYROXINE 88 MCG TABLET PO (05:27)
--- NOTE | 2020-06-09 06:42 | PC.NURSE ---
Patient transferred at 0335 from ICU (room 227) to a medical/surgical (room 203). Patient is alert and oriented x4, on 2 Liters of oxygen per nasal cannula at 98%.
[2020-06-09] MEDS: LACTOBACILLUS ACIDOPHILUS TABLET 1 EACH PO (08:39)
[2020-06-09] MEDS: METOPROLOL ER 25 MG TABLET PO ×2 (08:39→20:20)
[2020-06-09] MEDS: LIDOCAINE PATCH 1 EACH ADH..PATCH TOP (08:41)
[2020-06-09] MEDS: predniSONE 5 MG TABLET 2.5 MG PO ×2 (08:56→16:11)
[2020-06-09 09:09] LABS: Add Manual Diff / Slide Review NO; Basophils Absolute Auto 0 /uL (0-100); Basophils Percent Auto 0.5 % (0-2); Eosinophils Absolute Auto 0 /uL (0-450); Eosinophils Percent Auto 1.3 % (2-4); Hematocrit 28.5 % (41-53); Hemoglobin 9.3 g/dL (13.5-17.5); Lymphocytes Absolute Auto 500 /uL (1100-4500); Lymphocytes Percent Auto 20.8 % (25-40); Mean Corpuscular HGB Conc 32.6 % (30-36); Mean Corpuscular Hemoglobin 26.3 PG (26-34); Mean Corpuscular Volume 80.8 fL (80-100); Monocytes Absolute Auto 200 /uL (0-900); Monocytes Percent Auto 7.4 % (3-14); Neutrophils Absolute Auto 1700 /uL (1500-7000); Platelet Count 67 X10^3/uL (150-400); Red Blood Cell Count 3.53 X10^6/uL (4.5-5.9); Red Cell Distribution Width 16.7 % (11.6-14.8); White Blood Cell Count 2.4 X10^3/uL (4.5-11.0)
[2020-06-09 09:22] LABS: BUN Creatinine Ratio 13.6 (6-22); Blood Urea Nitrogen 16 mg/dL (9-20); Calcium 8.9 mg/dL (8.4-10.2); Carbon Dioxide 38 mmol/L (22-32); Chloride 94 mmol/L (98-107); Estimated Glomerular Filt Rate > 60.0 mL/min (>60); Glucose 88 mg/dL (80-110); HEMOLYSIS < 15 (0-50); Magnesium 1.8 mg/dL (1.6-2.3); Potassium 3.1 mmol/L (3.4-5.1); Sodium 136 mmol/L (137-145)
--- NOTE | 2020-06-09 10:15 | PT.IPTN ---
Current Diagnoses Toxic encephalopathy (06/06/20) Physical Therapy Treatment Note M2 PT-IP Current Condition Start: 06/05/20 08:16 Freq: NEEDED Status: Active Protocol: Document 06/07/20 11:29 MA (Rec: 06/07/20 11:46 MA [id number]) Physical Therapy Current Condition Current Condition Evaluation Date 06/05/20 Treatment Diagnosis Anal squamous cell carcinoma; Gereralized weakness Onset Date 06/04/20 M3 PT-IP Subjective Start: 06/05/20 08:16 Freq: NEEDED Status: Active Protocol: Document 06/09/20 12:40 DE (Rec: 06/09/20 13:04 DE [id number]) Subjective Physical Therapy Visit Type Type Treatment Note Visit Start Time 10:15 Visit Stop Time 11:08 Total Visit Minutes 53 Notes SPT Chris led session under direct supervision of PT Bogoie. Number of EPIC CADENCE ANALYST Visits 0 Physical Therapy Visit Comments Patient Comments Pt is agreeable to do PT. M4 PT-IP Mobility and Gait Start: 06/05/20 08:16 Freq: NEEDED Status: Active Protocol: Document 06/09/20 12:40 DE (Rec: 06/09/20 13:04 DE [id number]) PT-Bed Mobility Assessment Rolling Type of Rolling Roll to Left Level of Assist Standby Assistance Supine to Sit Supine to Sit Minimal Assistance,1 Person Assistance PT-Transfer Assessment Sit to and From Stand Sit to and from Stand Minimal Assistance,1 Person Assistance,Use of Upper Extremities Equipment Transfer Assistive Device Gait Belt,Front Wheeled Walker Transfers Transfer Destination Bed,Bedside Commode Transfer Technique Stand Step Pivot Transfer Ability Level of Assist Minimal Assistance,1 Person Assistance,Use of Upper Extremities Comments Mobility Comments Pt was lying supine in bed upon arrival. Pt needed to get his diaper changed. RN helped to get pt cleaned and changed in bed. Pt then did supine to sit with 1P min ORDNANCE HANDLER (pull to sit). In sitting on EOB, SPO2 was 80s and BP was 112/66. Pt denied any dizziness or lightheadedness. With 2L of O2 NC, SPO2 recovered to low 90s . He then lorenzo his shoes independently at EOB (figure 4 position) Pt performed sit to stand x3 with FWW CGA. The first time, pt stood for ~20 sec and c/o lightheadedness and requested to sit down. BP in sitting on EOB was 132/61. The second time, pt stood for ~30 sec and lightheadness was better but c/o of weakness and requested to sit down. SPO2 remained in 90-94 with 2L O2 NC during sit to stand. The third time, pt stood up and amb ~8 ft around foot of bed to the chair and sat down with FWW CGA. Pt required some reassurance that his vitals signs are stable. Pt voided in chair with urinal. Pt refused to be reclined in the chair. Call light placed within reach. Gait Assessment Gait Gait Assistance Required: Contact Guard Assist Distance (Feet) 8 Assistive Devices Assistive Device Gait Belt,Front Wheeled Walker Orthotic/Prosthetic Devices or Brace: No Gait Deviations General Gait Pattern Antalgic,Decreased Stride Length,Decreased Feet Clearance Factors Limiting Gait Function Factors Limiting Gait Function Decreased Activity Tolerance, Decreased Strength,Poor Balance,Poor Safety Awareness Comments Gait Comments See mobility comments. Stair Climbing Assessment Comments Stair Climbing Comments Not assessed. PT-Balance Assessment Sitting Balance and Reactions Static Sitting Balance Ability Normal Dynamic Sitting Balance Ability Good Standing Balance and Reactions Static Standing Balance Ability Good Dynamic Standing Balance Ability Fair M5 PT-IP Objective Assessments Start: 06/05/20 08:16 Freq: NEEDED Status: Active Protocol: Document 06/05/20 12:11 DE (Rec: 06/05/20 12:41 DE [id number]) Orientation Orientation/Cognition Level of Alertness Lethargic Orientation Name,Age,Birthday,Month,Date, Year,Day of Week,Place, Situation Language Function Ability No Deficits Noted Safety Awareness Understands Safety Issues Memory Description No Deficits Noted Gross Range of Motion Lower Extremity ROM Assessment Within Functional Limits Strength Lower Extremity Strength Assessment Bilaterally Impaired Comments Strength Comments Generalized weakness and fatigue Coordination Assessment Gross Coordination Gross Coordination WNL Sensation Assessment Sensation Gross Sensation WNL Light Touch Intact Muscle Tone Muscle Tone WNL Yes M6 PT-IP Treatment Start: 06/05/20 08:16 Freq: NEEDED Status: Active Protocol: Document 06/09/20 12:40 DE (Rec: 06/09/20 13:04 DE [id number]) Physical Therapy Treatment Education Education Provided Safety M7 PT-IP Assessment and Plan Start: 06/05/20 08:16 Freq: NEEDED Status: Active Protocol: Document 06/09/20 12:40 DE (Rec: 06/09/20 13:04 DE [id number]) PT Summary Assessment and Plan Potential Rehabilitation Potential Fair Summary Impairments Pain,ROM,Strength,Balance, Coordination,Sensation,Tone, Cognition,Bed Mobility, Transfers,Gait,Activity Tolerance Progress Towards Goals Slow Progress due to Medical Issues,Slow Progress due to Activity Tolerance Assessment Summary Pt demonstrated improved willingness to participate in PT today. Pt performed sit to stand x3 and amb ~8 ft around foot of bed with FWW CGA. However, pt continues to have decreased activity tolerance d /t fatigue and generalized weakness. Pt also demonstrates O2 desaturation to low 80s in room air. With 2L O2 NC, SPO2 remained in the low 90s. Pt understands and agrees that he is not safe to d/c home yet. PT recommends SNF in order to improve his activity tolerance , endurance, and strength while receiving / assistance. Goals Bed Mobility Goal Standby Assistance Transfer Goal Standby Assistance Gait Goal Standby Assistance Gait Distance 100 Other Goals Pt will perform 2 steps up and down CGA without railing. Days to Meet Goals 5 Frequency of Treatment Frequency Of Treatment Once a Day Treatment Plan Physical Therapy Treatment Plan Bed Mobility Training,Transfer Training,Gait Training, Therapeutic Exercise,Balance Retraining,Post Op Education, Discharge Planning,Hot or Cold Pack,Neuromuscular Re-ed Other Recommendations and Next Treatment Monitor SPO2 Focus Recommendations To Nursing Amount of Assist Needed 1 Person Assist Discharge Recommendations PT Discharge Recommendations Home with Assistance,Home Health,SNF Rehab Equipment Needed for Home Before FWW if going home. Discharge Transportation Needs at Discharge Private Vehicle,Wheelchair/ Cabulance Treatment was provided by Chris Dukes, SPT and supervised by Leobardo Cooper, PT. I personally reviewed this note and agree with its contents.
--- NOTE | 2020-06-09 10:20 | P.PN_ITS ---
Subjective Subjective Date Patient Seen: 06/09/20 Time Patient Seen: 10:20 Interval history: This is a 70 year old male with PMH of ulcerative colitis, adrenal insufficiency, hypothyroidism, and recent diagnosis of locally advanced anal squamous cell carcinoma who was admitted with acute dehydration, ANA, rectal pain and symptomatic anemia. He feels much better today, diarrhea is improved, feeling much stronger. Denies fever, chills, chest pain, nausea, vomiting. He will be getting up with OT today to shower. He was on supplemental O2 this morning, turned off during my evaluation and his O2 was in the mid 90s. His blood counts are improving today. Creatinine has been stable. He will continue to work with PT and OT today, to decide on discharge home with home health vs SNF for rehab. Exam Vital Signs (past 8 hours): - 06/09/20 03:35 06/09/20 08:00 06/09/20 08:39 Temperature 98.8 F Pulse Rate 70 79 Respiratory Rate 16 Blood Pressure 120/72 126/93 H Pulse Oximetry 98 96 06/09/20 08:56 06/09/20 09:27 Temperature 98.2 F Pulse Rate 79 Respiratory Rate 15 Blood Pressure 126/93 H Pulse Oximetry 96 96 Oxygen Delivery Method Nasal Cannula Oxygen Flow Rate 2 Narrative Exam Narrative: General: Elderly male sitting in bed and in no acute distress, appears less lethargic today with increased energy and less pallor. HEENT: Normocephalic, atraumatic. External ears without defect. Pupils equal, round, and reactive. Anicteric sclerae, moist conjunctivae, and no lid lag. Oropharynx free of erythema and cobble stoning with moist mucosa. No ulcerations in mouth. Neck: Supple with full range of motion. No jugular venous distension. No l ymphadenopathy or thyromegaly. Cardiovascular: Regular rate and rhythm without rubs, or gallops but systolic murmur at LSB appreciated, 2-3/6. Pulmonary: Bibasilar crackles without wheezing, poor effort, no acute distress. Abdomen: Soft, obese, bowel sounds present, nontender, nondistended. Extremities: No clubbing, cyanosis or edema. Skin: Normal temperature, turgor, and texture. Gluteal crease erythema with punctate pustular lesions, consistent with folliculitis. Neurological: Cranial nerves grossly intact. Generalized weakness without focal neurological deficit. Psychiatric: Depressed mood and affect. Alert and oriented Objective Labs Result Diagrams: 06/09/20 08:55 06/09/20 08:55 Labs: Laboratory Results - last 24 hr 06/09/20 06/09/20 08:55 08:55 WBC 2.4 L RBC 3.53 L Hgb 9.3 L Hct 28.5 L MCV 80.8 MCH 26.3 MCHC 32.6 RDW 16.7 H Plt Count 67 L Neut % (Auto) 70.0 Lymph % (Auto) 20.8 L Clarke % (Auto) 7.4 Eos % (Auto) 1.3 L Baso % (Auto) 0.5 Neut # (Auto) 1700 Lymph # (Auto) 500 L Clarke # (Auto) 200 Eos # (Auto) 0 Baso # (Auto) 0 Sodium 136 L Potassium 3.1 L Chloride 94 L Carbon Dioxide 38 H BUN 16 Creatinine 1.18 Estimated GFR > 60.0 BUN/Creatinine Ratio 13.6 Glucose 88 Calcium 8.9 Magnesium 1.8 [facility] Medical History Acquired hypothyroidism Acute dehydration Anal cancer Anal squamous cell carcinoma (~02/2020) Anemia (10/13/13) C. 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 Syncope Ulcerative colitis Ulcerative colitis Ventral hernia without obstruction or gangrene (08/07/16) Surgical History Fractures History of neck surgery (~2006) History of nephrectomy (~08/2015) History of third molar tooth extraction History of tonsillectomy (~1955) History of tonsillectomy (~1956) History of tonsillectomy (~1960) Status post colonoscopy Family History Mother Congestive heart failure Father Liver failure Alzheimer's dementia Social History household members: spouse Smoking Status: Former smoker alcohol intake: never Assessment & Plan Assessment & Plan narrative: This is a 70 year old male with PMH of ulcerative colitis, adrenal insufficiency, hypothyroidism, and recent diagnosis of locally advanced anal squamous cell carcinoma who was admitted with acute dehydration, ANA, and rectal pain who developed a toxic metabolic encephalopathy and new hypoxemia, now improving. 1. Toxic metabolic encephalopathy, acute, not present on admission, resolved. - suspect secondary to narocotic pain medication use in combination with ANA and anemia. He required 2 doses of narcan with improvement in mental status. CT head negative. 2. acute hypoxemic respiratory failure, not present on admission, improved - suspect due to decreased respiratory drive in the setting of encephalopathy, in combination with volume overload with fluids for presumed dehydration and unknown previous diastolic heart failure and LVOT obstruction. - proBNP elevated, CXR showing congestion. TTE with evidence of diastolic dysfunction. Have started beta sonia given LVOT obstruction as noted below, cardiology recommends diuresis as needed. - now appears euvolemic, will hold on diuresis today, continue as needed. 3. Acute on chronic diastolic heart failure, not present on admission. - continue diuresis as needed per cardiology recommendations (as needed). Fluid balance remains difficult in this patient given his solitary kidney and LVOT obstruction. 4. Acute kidney injury, present on admission, improved - suspected do to dehydration in the setting of diarrhea and decreased PO intake / dehydration and worsening anemia. US negative for obstructive causes. - Cr 1.49 > 1.25 > 1.58 > 2.09 now down again to 1.18 after transfusion. Continue to follow. 5. Acute on chronic rectal pain, secondary to locally advanced anal squamous cell carcinoma and diarrhea, present on admission. Active. -Patient is receiving radiation to area precipitating pain (received 6 rounds thus far and missed 2 rounds due to rectal pain), as well as, acute on chronic diarrhea worsened with chemotherapy 5 FU and mitomycin C. -Continue pain control with: 2% lidocaine jelly applied to the anus three times daily, hydrocortisone suppository discontinued per patient request, have reduced narcotic dosing to balance pain control with encephalopathy and confusion. -Per Dr. Quan of oncology, the patient may use Immodium 2 mg 4 times daily as needed for persistent diarrhea as 5 FU precipitates severe diarrhea. -Received 2 L boluses in ED. Continued IV fluid hydration until adequately hydrated then discontinued, trialed another bolus today however now with hypoxia and possible overload, will continue to readdress volume status. -GI panel negative for infectious causes. 6. Acute on chronic generalized weakness, present on admssion. Active. -The patient reports progressive weakness for 1 year but worse over the last 3 days. The patient denies falls. -Multifactorial and secondary to malignancy, deconditioning, and now acutely worsened due to chemotherapy and radiation. -Ordered physical therapy evaluation and treatment, pending. 7. Locally advanced anal squamous cell carcinoma, present on admission. Stable. -Patient has partially obstructing squamous cell carcinoma of the anus/rectum. He is followed by Dr. Quan of oncology and Dr. Beasley of radiation oncology. -Patient recently started 5 FU and mitomycin C with his first cycle on 05/31/20 and has underwent 6 rounds of radiation (missed 2 due to rectal pain) which he reports he is suppose to do daily for 4 weeks total. -Patient has mild pancytopenia from recent chemotherapy and continue to monitor CBC closely and for signs of infection. 8. Ulcerative colitis, chronic, present on admission. Stable. -Continue home prednisone 2.5 mg twice daily and mesalamine 1.2 mg twice daily. 9. Adrenal insufficiency, chronic and secondary to chronic steroid use, present on admission. Stable. -Continue home prednisone 2.5 mg twice daily. 0. Hypothyroidism, chronic, present on admission. Stable. -Continue home levothyroxine 88 mcg daily. 11. pancytopenia, acute, present on admission - secondary to chemotherapy as noted above. Transfused 06/07 for symptomatic anemia, Hg 7.7 now beginning to improve. He reports improvement in fatigue with transfusion. His counts have risen slightly today again. Will continue to follow. 12. 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 - seen on TTE, normal EF. Mild per cardiology. Recommended beta sonia which has been started at 25 mg BID, diurese as needed. Code status: Full code, surrogate decision maker is designated as patient is spouse VTE prophylaxis: SCDs, held chemical prophylaxis due to pancytopenia Dispo: anticipate discharge home with home health or ? SNF depending on PT notes possibly as soon as tomorrow if he remains off of supplemental oxygen and kidney function remains stable. COVID-19 COVID-19 status: Negative Quality VTE Deep Vein Thrombosis/Pulmonary Embolism Present on Admission: No
[2020-06-09] MEDS: POTASSIUM CHLORIDE 20 MEQ/15 ML UDC 40 MEQ PO (11:06)
[2020-06-09] MEDS: MESALAMINE 1200 MG 1200 EACH PO ×2 (11:07→18:09)
--- NOTE | 2020-06-09 12:07 | OT.IP.TRT ---
Current Diagnoses Toxic encephalopathy (06/06/20) Occupational Therapy Treatment Note M2 OT-IP Current Condition Start: 06/06/20 16:32 Freq: Status: Active Protocol: Document 06/06/20 14:16 [facility] (Rec: 06/06/20 17:00 [facility] [id number]) Occupational Therapy Current Condition Current Condition Evaluation Date 06/06/20 Treatment Diagnosis Acute dehydration, anal squamous cell carcinoma Diagnosis Onset Date 06/04/30 M3 OT- IP Subjective and Pain Start: 06/06/20 16:32 Freq: Status: Active Protocol: Document 06/09/20 12:41 [facility] (Rec: 06/09/20 12:54 [facility] [id number]) OT- Subjective Occupational Therapy Visit Type Type Treatment Note Visit Start Time 11:28 Visit Stop Time 12:07 Total Visit Minutes 39 Occupational Therapy Visit Comments Patient Comments Pt wanting to rest as just finished seeing pt for PT. Pt agreed to shower. Patient/Caregiver Goals Pt now realizing that he would benefit from skilled rehab. OT Pain Assessment Pain When Pain Assessed During Mobility Pain Present Pain Present Pain Reported M4 OT- IP ADL's Start: 06/06/20 16:32 Freq: Status: Active Protocol: Document 06/09/20 12:41 [facility] (Rec: 06/09/20 12:54 [facility] [id number]) OT [id number] Comments OT Self-Feeding Comments NOt at meal time. OT ADL-Grooming Comments OT Grooming Comments NOt performed. OT ADL-Oral Care Comments Oral Care Comments Not performed. OT ADL-Dressing General Eval Lower Body Dressing Ability Moderate Assistance,Maximum Assistance Areas Needing Assistance Underpants/Brief,Socks Comments OT Dressing Comments Assist to help get brief over his feet initially. Pt able to cross his legs over to lorenzo his right sock but needing assist to lorenzo left sock. OT ADL-Toileting General Evaluation Toileting Ability Maximum Assistance Areas Needing Assistance Manage Clothing,Perform Perineal Hygiene Devices Toileting Assistive Devices Commode Comments OT Toileting Comments MAXA for hygiene needs as pt having loose stools. OT ADL-Bathing Bathing Type Bathing Type Shower General Evaluation Bathing Ability Moderate Assistance Areas Needing Assistance Wash/Dry Perineal Area,Wash/ Dry Lower Extremities Comments OT Bathing Comments Assist for hygiene of pericare needs and for LB. M5 OT- IP IADL's Start: 06/06/20 16:32 Freq: Status: Active Protocol: Document 06/06/20 14:16 [facility] (Rec: 06/06/20 17:00 [facility] [id number]) OT-Instrumental Activities of Daily Living Home Safety Awareness Awareness of Need for Assistance at Home Good Awareness Medication Management Medication Management Comments Pt's able to assist as needed. M6 OT- IP Functional Cognition Start: 06/06/20 16:32 Freq: Status: Active Protocol: Document 06/09/20 12:41 [facility] (Rec: 06/09/20 12:54 [facility] [id number]) Cognitive Factors Limiting Selfcare Function Cognitive Ability Level of Alertness Alert Patient Orientation Name,Age,Birthday,Month,Date, Year,Day of Week,Place, Situation Attention Span Ability Capable of Focused Attention, Capable of Sustained Attention Ability to Follow Commands Able to Follow One Step Commands Cognitive Comments Cognitive Assessment Comments Pt needing encouragement to participate in ADL needs. Pt however after encouragement willing to try. M7 OT- IP Mobility and Balance Start: 06/06/20 16:32 Freq: Status: Active Protocol: Document 06/09/20 12:41 [facility] (Rec: 06/09/20 12:54 [facility] [id number]) OT- Bed Mobility Assessment Sit to Supine Sit to Supine Assist Moderate Assistance,1 Person Assistance OT-Transfer Assessment Sit to and From Stand Sit to and from Stand Minimal Assistance,Moderate Assistance,1 Person Assistance Transfers Transfer Ability Minimal Assistance Technique Transfer Destination Bed,Chair,Shower Stall Transfer Technique Stand Step Pivot Devices Transfer Assistive Devices Straight Cane,Front Wheeled Walker Comments Mobility Comments MODA to stand from lower surfaces to stand and if use of grab bar just needing DONY. When up on his feet CGA to DONY to step over threshold of the shower with FWW. OT- Balance Assessment Sitting Balance and Reactions Static Sitting Balance Ability Normal Dynamic Sitting Balance Ability Good Standing Balance and Reactions Static Standing Balance Ability Fair M8 OT- IP Objective Assessments Start: 06/06/20 16:32 Freq: Status: Active Protocol: Document 06/06/20 14:16 [facility] (Rec: 06/06/20 17:00 [facility] [id number]) OT Gross Range of Motion Upper Extremity Range of Motion Assessment Bilaterally Impaired OT-Muscle Tone Assessment Muscle Tone WNL Yes M9 OT- IP Assessment and Plan Start: 06/06/20 16:32 Freq: Status: Active Protocol: Document 06/09/20 12:41 [facility] (Rec: 06/09/20 12:54 [facility] [id number]) OT Summary Assessment and Plan Potential Rehabilitation Potential Good Analytic Complexity at Evaluation Low Summary OT Impairments Pain,Range of Motion,Balance, Functional Mobility,Grooming, Dressing,Toileting,Bathing, Toilet Transfers,Shower Transfers,Activity Tolerance Progress Towards Goals Progressing Toward Goals Assessment Summary Pt able to tolerate PT session and after 20 minute rest break at shower, therefore activity tolerance improving. Pt however still needing 2.5L of O2 in the shower and O2 reading 92%. Pt now agrees would be best to go to skilled rehab prior to going home. Goals Self-Feeding Goal Independent Grooming Goal Independent Dressing Goal Independent Toileting Goal Independent Bathing Goal Independent Toilet Transfer Goal Independent Shower Transfer Goal Independent Patient/Caregiver Education Goal Caregiver Independent Assisting Patient Days to Meet Goals 15 Frequency of Treatment Frequency Of Treatment Once a Day Treatment Plan OT Treatment Plan ADL Training,Functional Cognition Training,Functional Mobility,Patient/Family Education,Discharge Planning Other Treatment Recommendations and Next LB dressing, standing at the Treatment Focus sink for grooming needs with FWW Discharge Recommendations OT Discharge Recommendations SNF Rehab Home Equipment Needs Defer to skilled rehab Transportation Needs at Discharge Wheelchair/Cabulance
[2020-06-09] MEDS: LOPERAMIDE 2 MG CAPSULE PO (16:11)
[2020-06-09] MEDS: CALCIUM CARBONATE 500 MG TAB 1000 MG PO (20:20)
[2020-06-09] MEDS: MAG HYDROX/ALUM/SIMETH 30 ML UDC PO (20:41)
[2020-06-10] VITALS (18 sets, daily range): BP systolic 114–144; BP diastolic 57–75; PULSE 64–77; RESP 14–18; TEMP 36.1–37.1; O2SAT 89–100
[2020-06-10] MEDS: OXYCODONE/ACETAMINOPHEN 5/325 TABLET 1 TAB PO (00:04)
[2020-06-10] MEDS: LIDOCAINE JELLY 2% 5 ML 1 APPLIC TOP ×2 (00:05→17:01)
--- NOTE | 2020-06-10 02:04 | PC.NURSE ---
2300 Received safe patient hand-off. The patient is lying on his left side in bed. C/O pain 8/10 in left hip and rectum. The patient is experiencing loss of bowel control, and loose bowel movements; furthermore, this is causing his rectum and carlyle-area to be very red, macerated. He has already been given one dose of 2mg loperamide at around 1600. Administered Percocet tablet as ordered PRN to aid with pain control and to also help slow down the frequency of loose bowel movements. During assessment, the patient's carlyle-area was cleaned twice from two BM's and applied lidocaine jelly once to rectum and balm. The patient is now resting comfortably on his back with HOB at 30 degrees. He has 2LPM via NC being administered as well. The bed alarm is on. No s/sx of distress.
[2020-06-10] MEDS: SODIUM CHLORIDE 0.9% FLUSH 10 ML IV (04:53)
[2020-06-10] MEDS: LEVOTHYROXINE 88 MCG TABLET PO (05:16)
[2020-06-10 05:26] LABS: Add Manual Diff / Slide Review NO; Basophils Absolute Auto 0 /uL (0-100); Basophils Percent Auto 0.5 % (0-2); Eosinophils Absolute Auto 0 /uL (0-450); Hematocrit 27.2 % (41-53); Hemoglobin 8.8 g/dL (13.5-17.5); Lymphocytes Absolute Auto 500 /uL (1100-4500); Lymphocytes Percent Auto 18.3 % (25-40); Mean Corpuscular HGB Conc 32.6 % (30-36); Mean Corpuscular Hemoglobin 26.4 PG (26-34); Monocytes Absolute Auto 200 /uL (0-900); Monocytes Percent Auto 9.1 % (3-14); Neutrophils Absolute Auto 1900 /uL (1500-7000); Neutrophils Percent Auto 71.1 % (50-75); Platelet Count 78 X10^3/uL (150-400); Red Blood Cell Count 3.35 X10^6/uL (4.5-5.9); Red Cell Distribution Width 16.5 % (11.6-14.8); White Blood Cell Count 2.7 X10^3/uL (4.5-11.0)
[2020-06-10 05:31] LABS: Alanine Aminotransferase 28 IU/L (<50); Albumin 3.1 g/dL (3.5-5.0); Albumin Globulin Ratio 0.9 (1.0-2.8); Alkaline Phosphatase 78 U/L (38-126); Aspartate Aminotransferase 30 IU/L (17-59); BUN Creatinine Ratio 11.9 (6-22); Bilirubin Total 0.6 mg/dL (0.2-1.3); Bilirubin Unconjugated 0.3 mg/dL (0.0-1.1); Blood Urea Nitrogen 16 mg/dL (9-20); Calcium 8.9 mg/dL (8.4-10.2); Chloride 94 mmol/L (98-107); Estimated Glomerular Filt Rate 52.2 mL/min (>60); Globulin 3.4 g/dL (1.7-4.1); Glucose 96 mg/dL (80-110); HEMOLYSIS < 15 (0-50); Magnesium 1.9 mg/dL (1.6-2.3); Potassium 3.6 mmol/L (3.4-5.1); Sodium 133 mmol/L (137-145); Total Protein 6.5 g/dL (6.3-8.2)
[2020-06-10 05:37] LABS: Carbon Dioxide 38 mmol/L (22-32)
[2020-06-10] MEDS: LOPERAMIDE 2 MG CAPSULE PO ×2 (10:11→17:01)
[2020-06-10] MEDS: LACTOBACILLUS ACIDOPHILUS TABLET 1 EACH PO (10:11)
[2020-06-10] MEDS: predniSONE 5 MG TABLET 2.5 MG PO ×2 (10:20→17:01)
[2020-06-10] MEDS: MESALAMINE 1200 MG 1200 EACH PO ×2 (10:21→17:02)
[2020-06-10] MEDS: METOPROLOL ER 25 MG TABLET PO ×2 (10:22→21:25)
[2020-06-10] MEDS: LIDOCAINE PATCH 1 EACH ADH..PATCH TOP (10:23)
[2020-06-10] MEDS: FAMCICLOVIR 500 MG 500 EACH PO (10:28)
[2020-06-10] MEDS: CALCIUM CARBONATE 500 MG TAB 1000 MG PO ×2 (11:32→14:46)
--- NOTE | 2020-06-10 11:35 | PT.IPTN ---
Current Diagnoses Toxic encephalopathy (06/06/20) Physical Therapy Treatment Note M2 PT-IP Current Condition Start: 06/05/20 08:16 Freq: NEEDED Status: Active Protocol: Document 06/07/20 11:29 MA (Rec: 06/07/20 11:46 MA [id number]) Physical Therapy Current Condition Current Condition Evaluation Date 06/05/20 Treatment Diagnosis Anal squamous cell carcinoma; Gereralized weakness Onset Date 06/04/20 M3 PT-IP Subjective Start: 06/05/20 08:16 Freq: NEEDED Status: Active Protocol: Document 06/10/20 10:56 KS (Rec: 06/10/20 13:03 KS [id number]) Subjective Physical Therapy Visit Type Type Treatment Note Visit Start Time 10:56 Visit Stop Time 11:35 Total Visit Minutes 39 Notes RT present throughout treatment. Number of STENCIL SPRAYER Visits 1 Physical Therapy Visit Comments Patient Comments Pt is agreeable to do PT. M4 PT-IP Mobility and Gait Start: 06/05/20 08:16 Freq: NEEDED Status: Active Protocol: Document 06/10/20 10:56 KS (Rec: 06/10/20 13:03 KS [id number]) PT-Bed Mobility Assessment Supine to Sit Supine to Sit Contact Guard Assistance,1 Person Assistance,Bedrails Scooting Scooting to Edge of Bed Contact Guard Assistance PT-Transfer Assessment Sit to and From Stand Sit to and from Stand Contact Guard Assistance,1 Person Assistance,Use of Upper Extremities Equipment Transfer Assistive Device Gait Belt,Front Wheeled Walker Transfers Transfer Destination Chair,Bedside Commode Transfer Technique Stand Step Pivot Transfer Ability Level of Assist Contact Guard Assistance,1 Person Assistance,Use of Upper Extremities Comments Mobility Comments Pt sidelyin in bed upon arrival from therapy. RT present to monitor pts O2 needs. Pt sidelying<>sit CGA and cues. O2 dropped to 80s and was increased by RT. Pt CGA for scooting to EOB and sit<>Stand w/ FWW. Pt requests many breaks/various things between short bouts of mobility. Pt performed stand step pivot from bed to chair CGA and cues. After sitting in chair, pt requested to use BSC and continued asking for medications. Pt CGA w/o AD for transfer to BSC. Pt left on BSC w/ nursing in room. Pt required O2 throughout treatment. Gait Assessment Gait Gait Assistance Required: Contact Guard Assist Distance (Feet) 4 Assistive Devices Assistive Device Gait Belt,Front Wheeled Walker Orthotic/Prosthetic Devices or Brace: No Gait Deviations General Gait Pattern Antalgic,Decreased Stride Length,Decreased Feet Clearance Factors Limiting Gait Function Factors Limiting Gait Function Decreased Activity Tolerance, Decreased Strength,Poor Balance,Poor Safety Awareness Comments Gait Comments See mobility comments. 2x stand step pivot only. Stair Climbing Assessment Comments Stair Climbing Comments Not assessed. PT-Balance Assessment Sitting Balance and Reactions Static Sitting Balance Ability Normal Dynamic Sitting Balance Ability Good Standing Balance and Reactions Static Standing Balance Ability Good Dynamic Standing Balance Ability Fair M5 PT-IP Objective Assessments Start: 06/05/20 08:16 Freq: NEEDED Status: Active Protocol: Document 06/05/20 12:11 DE (Rec: 06/05/20 12:41 DE [id number]) Orientation Orientation/Cognition Level of Alertness Lethargic Orientation Name,Age,Birthday,Month,Date, Year,Day of Week,Place, Situation Language Function Ability No Deficits Noted Safety Awareness Understands Safety Issues Memory Description No Deficits Noted Gross Range of Motion Lower Extremity ROM Assessment Within Functional Limits Strength Lower Extremity Strength Assessment Bilaterally Impaired Comments Strength Comments Generalized weakness and fatigue Coordination Assessment Gross Coordination Gross Coordination WNL Sensation Assessment Sensation Gross Sensation WNL Light Touch Intact Muscle Tone Muscle Tone WNL Yes M6 PT-IP Treatment Start: 06/05/20 08:16 Freq: NEEDED Status: Active Protocol: Document 06/10/20 10:56 KS (Rec: 06/10/20 13:03 KS [id number]) Physical Therapy Treatment Education Education Provided Safety M7 PT-IP Assessment and Plan Start: 06/05/20 08:16 Freq: NEEDED Status: Active Protocol: Document 06/10/20 10:56 KS (Rec: 06/10/20 13:03 KS [id number]) PT Summary Assessment and Plan Potential Rehabilitation Potential Fair Summary Impairments Pain,ROM,Strength,Balance, Coordination,Sensation,Tone, Cognition,Bed Mobility, Transfers,Gait,Activity Tolerance Progress Towards Goals Slow Progress due to Medical Issues,Slow Progress due to Activity Tolerance Assessment Summary Pt CGA and cues for sidelying< >sit, scooting, EOB, sit<> stand, and stand step pivot w/ and w/o FWW. RT present to monitor pts O2 throughout treatment, pt unable to tolerate mobility w/o O2 at this time and requiring 2L when moving. Pt performed stand step pivot from bed to chair, to BSC all CGA, pt utilized FWW when transferring from bed to chair, but refused FWW when transferring from chair to BSC. Pt continues to be limited by low tolerance for activity and will require SNF to improve strength and endurance. Goals Bed Mobility Goal Standby Assistance Transfer Goal Standby Assistance Gait Goal Standby Assistance Gait Distance 100 Other Goals Pt will perform 2 steps up and down CGA without railing. Days to Meet Goals 5 Frequency of Treatment Frequency Of Treatment Once a Day Treatment Plan Physical Therapy Treatment Plan Bed Mobility Training,Transfer Training,Gait Training, Therapeutic Exercise,Balance Retraining,Post Op Education, Discharge Planning,Hot or Cold Pack,Neuromuscular Re-ed Other Recommendations and Next Treatment Monitor SPO2 Focus Recommendations To Nursing Amount of Assist Needed 1 Person Assist Discharge Recommendations PT Discharge Recommendations Home with Assistance,Home Health,SNF Rehab Equipment Needed for Home Before FWW if going home. Discharge Transportation Needs at Discharge Private Vehicle,Wheelchair/ Cabulance
--- NOTE | 2020-06-10 11:35 | RT ---
RT assisted PT in patient morning assessment, patient required 2L NC to maintain saturations greater than 92% with ambulation and 1L while at rest. Continue to wean oxygen as tolerated
--- NOTE | 2020-06-10 13:42 | OT.IP.TRT ---
Current Diagnoses Toxic encephalopathy (06/06/20) Occupational Therapy Treatment Note M2 OT-IP Current Condition Start: 06/06/20 16:32 Freq: Status: Active Protocol: Document 06/06/20 14:16 [facility] (Rec: 06/06/20 17:00 [facility] [id number]) Occupational Therapy Current Condition Current Condition Evaluation Date 06/06/20 Treatment Diagnosis Acute dehydration, anal squamous cell carcinoma Diagnosis Onset Date 06/04/30 M3 OT- IP Subjective and Pain Start: 06/06/20 16:32 Freq: Status: Active Protocol: Document 06/10/20 13:42 CGR (Rec: 06/10/20 13:42 CGR [id number]) OT- Subjective Occupational Therapy Visit Type Type Administrative Note Notes Attempted to see pt for OT services this PM. Pt is on BSC and declined further activity . Will hold and continue to follow.
--- NOTE | 2020-06-10 14:14 | DI.RAD.S_ITS ---
PROCEDURE: XR CHEST 1V INDICATIONS: hypoxia TECHNIQUE: One view of the chest was acquired. COMPARISON: [facility], CT, CT CHEST ABD PEL W CON, 04/21/2020, 13:20. [facility], CR, XR CHEST 2V, 06/07/2020, 8:33. [facility], CR, XR CHEST 2V, 06/06/2020, 10:44. FINDINGS: Surgical changes and devices: Right-sided PICC with the catheter tip at the lower 3rd of the SVC. Surgical clips in the neck. Lungs and pleura: Mild airspace opacity at the left lung base is similar to the prior exam. There is also patchy airspace opacity at the right lung base. Overall airspace opacity similar the prior exam. No definite pleural effusions. No pneumothorax. Mediastinum: Mediastinal contours appear unchanged. There is asymmetric elevation of the left hemidiaphragm. Heart size is normal. Bones and chest wall: No suspicious bony lesions. Overlying soft tissues appear unremarkable. IMPRESSION: Mild airspace opacity in the lower lungs bilaterally. Overall this is not significantly changed. Dictated by: Yandel River M.D. on 06/10/2020 at 14:37 Approved by: Yandel River M.D. on 06/10/2020 at 14:41
--- NOTE | 2020-06-10 14:16 | P.PN_ITS ---
Subjective Subjective Date Patient Seen: 06/10/20 Interval history: The patient is a 70-year-old male with a history of rectal cancer status post chemotherapy plans to start radiation therapy who presented with diarrhea, weakness, and generalized malaise. Patient has had continued diarrhea although it is improved. He had acute kidney injury on admission requiring IV hydration for improvement. Patient likely developed pulmonary edema associated with that. He received Lasix with improvement of his oxygenation. He continues to desaturate with an oxygen saturation of 88-87% on room air. He also notes he continues to be short of breath. His bottom is sore from the diarrhea. He continues to have 3 stools however they are formed today. The patient is improving in terms of his weakness although he is still below his baseline. In addition he complains of heartburn which she has at home. Exam Vital Signs (past 8 hours): - 06/10/20 07:00 06/10/20 08:04 06/10/20 08:09 Temperature Pulse Rate 67 Respiratory Rate 18 Blood Pressure Pulse Oximetry 95 99 96 06/10/20 09:37 06/10/20 10:22 06/10/20 13:00 Temperature 98.8 F 97.8 F Pulse Rate 76 76 70 Respiratory Rate 17 18 Blood Pressure 119/57 L 118/57 L 120/60 Pulse Oximetry 100 98 06/10/20 13:22 Temperature Pulse Rate 77 Respiratory Rate Blood Pressure 118/57 L Pulse Oximetry Oxygen Delivery Method Room Air Oxygen Flow Rate 1 Narrative Exam Narrative: Ill-appearing male lying in bed Lungs: Decreased breath sounds bilaterally Cardiac exam: Regular rate and rhythm normal S1-S2 with a 2/6 systolic ejection murmur Abdomen: Soft nontender nondistended, no hepatosplenomegaly Sacral area: Multiple ulcerative lesions in various stages of healing on bilateral buttocks, in addition there is redness around the anal area Extremities: No edema Objective Labs Result Diagrams: 06/10/20 05:00 06/10/20 05:00 Labs: Laboratory Results - last 24 hr 06/10/20 06/10/20 05:00 05:00 WBC 2.7 L RBC 3.35 L Hgb 8.8 L Hct 27.2 L MCV 81.0 MCH 26.4 MCHC 32.6 RDW 16.5 H Plt Count 78 L Neut % (Auto) 71.1 Lymph % (Auto) 18.3 L [place] % (Auto) 9.1 Eos % (Auto) 1.0 L Baso % (Auto) 0.5 Neut # (Auto) 1900 Lymph # (Auto) 500 L [place] # (Auto) 200 Eos # (Auto) 0 Baso # (Auto) 0 Sodium 133 L Potassium 3.6 Chloride 94 L Carbon Dioxide 38 H BUN 16 Creatinine 1.35 H Estimated GFR 52.2 L BUN/Creatinine Ratio 11.9 Glucose 96 Calcium 8.9 Magnesium 1.9 Total Bilirubin 0.6 Conjugated Bilirubin 0.0 Unconjugated Bilirubin 0.3 AST 30 ALT 28 Alkaline Phosphatase 78 Total Protein 6.5 Albumin 3.1 L Globulin 3.4 Albumin/Globulin Ratio 0.9 L PFSH Medical History Acquired hypothyroidism Acute dehydration Anal cancer Anal squamous cell carcinoma (~02/2020) Anemia (10/13/13) C. 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 Syncope Ulcerative colitis Ulcerative colitis Ventral hernia without obstruction or gangrene (08/07/16) Surgical History Fractures History of neck surgery (~2006) History of nephrectomy (~08/2015) History of third molar tooth extraction History of tonsillectomy (~1955) History of tonsillectomy (~1956) History of tonsillectomy (~1959) Status post colonoscopy Family History Mother Congestive heart failure Father Liver failure Alzheimer's dementia Social History household members: spouse Smoking Status: Former smoker alcohol intake: never Assessment & Plan Assessment & Plan narrative: Assessment & Plan narrative: This is a 70 year old male with PMH of ulcerative colitis, adrenal insufficiency, hypothyroidism, and recent diagnosis of locally advanced anal squamous cell carcinoma who was admitted with acute dehydration, ANA, and rectal pain who developed a toxic metabolic encephalopathy and new hypoxemia, now improving. 1. acute hypoxemic respiratory failure, not present on admission, persistant - suspect due to decreased respiratory drive in the setting of encephalopathy, in combination with volume overload with fluids for presumed dehydration and unknown previous diastolic heart failure and LVOT obstruction. - proBNP elevated, CXR showing congestion. TTE with evidence of diastolic dys function. Have started beta sonia given LVOT obstruction as noted below, cardiology recommends diuresis as needed. -patient continues to be hypoxic, creatinine elevated at 1.35, will repeat chest xray, may need low dose lasix with close attention to renal function -will check D-Dimer as patient at high risk for PE 2. Acute metabolic encephalopathy- resolved 3. Acute on chronic diastolic heart failure, not present on admission. - continue diuresis as needed per cardiology recommendations (as needed). Fluid balance remains difficult in this patient given his solitary kidney and LVOT obstruction. -Patient remains hypoxic, may need to continue diuresis until off oxygen 4. Acute kidney injury, present on admission, improved - suspected do to dehydration in the setting of diarrhea and decreased PO intake / dehydration and worsening anemia. US negative for obstructive causes. - Cr 1.49 > 1.25 > 1.58 > 2.09 now down again to 1.18 after transfusion. Continue to follow. -creat 1.35 5. Acute on chronic rectal pain, secondary to locally advanced anal squamous cell carcinoma and diarrhea, present on admission. Active. -Patient is receiving radiation to area precipitating pain (received 6 rounds thus far and missed 2 rounds due to rectal pain), as well as, acute on chronic diarrhea worsened with chemotherapy 5 FU and mitomycin C. -Continue pain control with: 2% lidocaine jelly applied to the anus three times daily, hydrocortisone suppository discontinued per patient request, have reduced narcotic dosing to balance pain control with encephalopathy and confusion. -Per Dr. Quan of oncology, the patient may use Immodium 2 mg 4 times daily as needed for persistent diarrhea as 5 FU precipitates severe diarrhea. -Received 2 L boluses in ED. Continued IV fluid hydration until adequately hydrated then discontinued, trialed another bolus today however now with hypoxia and possible overload, will continue to readdress volume status. -GI panel negative for infectious causes. -improving 6. Acute on chronic generalized weakness, present on admssion. Active. -The patient reports progressive weakness for 1 year but worse over the last 3 days. The patient denies falls. -Multifactorial and secondary to malignancy, deconditioning, and now acutely worsened due to chemotherapy and radiation. -Ordered physical therapy evaluation and treatment, pending. 7. Locally advanced anal squamous cell carcinoma, present on admission. Stable. -Patient has partially obstructing squamous cell carcinoma of the anus/rectum. He is followed by Dr. Quan of oncology and Dr. Beasley of radiation oncology. -Patient recently started 5 FU and mitomycin C with his first cycle on 05/31/20 and has underwent 6 rounds of radiation (missed 2 due to rectal pain) which he reports he is suppose to do daily for 4 weeks total. -Patient has mild pancytopenia from recent chemotherapy and continue to monitor CBC closely and for signs of infection. 8. Ulcerative colitis, chronic, present on admission. Stable. -Continue home prednisone 2.5 mg twice daily and mesalamine 1.2 mg twice daily. 9. Adrenal insufficiency, chronic and secondary to chronic steroid use, present on admission. Stable. -Continue home prednisone 2.5 mg twice daily. 0. Hypothyroidism, chronic, present on admission. Stable. -Continue home levothyroxine 88 mcg daily. 11. pancytopenia, acute, present on admission - secondary to chemotherapy as noted above. Transfused 06/07 for symptomatic anemia, Hg 7.7 now beginning to improve. He reports improvement in fatigue with transfusion. His counts have risen slightly today again. Will continue to follow. 12. 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 - seen on TTE, normal EF. Mild per cardiology. Recommended beta sonia which has been started at 25 mg BID, diurese as needed. Code status: Full code, surrogate decision maker is designated as patient is spouse VTE prophylaxis: SCDs, held chemical prophylaxis due to pancytopenia Dispo: anticipate discharge home with home health or ? SNF depending on PT notes possibly as soon as tomorrow if he remains off of supplemental oxygen and kidney function remains stable. COVID-19 Quality VTE Deep Vein Thrombosis/Pulmonary Embolism Present on Admission: No
--- NOTE | 2020-06-10 14:50 | CM.DPNOTE ---
DCP Cont Met w/patient, spouse Shelli and Dr Allen in room this afternoon, Dr Allen reviewed medical POC and this REFRACTORY WORKER reviewed DC options. Today Dr Allen is addressing patient's persistent diarrhea and persistent hypoxemia, chest xray pending. Dr Allen also encourages patient to participate w/therapy team when offered to strengthen and increase endurance in order to meet goal to return home. This REFRACTORY WORKER and spouse Shelli speak alone- spouse admits that she is very tired. Patient has been struggling w/colitis and stool incontinence for quite awhile which often keeps them both up at night. Patient is able to sleep during the day, spouse needs to get to work for her radio time buyer job at [employer]. Spouse has asked that her dtr Amina help her when she takes patient home. Shelli continues to plan on taking patient home and is agreeable to home health, no agency preference...Need to make HH referral; patient expected to remain admitted for at least another day maybe two. Patient committed to working w/therapy team and knows that if he wants to return home he will need to be able to self transfer to a bedside commode and back to bed and/or recliner. Plan: DC home expected w/family to assist and HH; close outpatient f/u NONI Davidson
[2020-06-10 15:12] LABS: D Dimer 794 ng/mL (<230)
[2020-06-10] MEDS: ACETAMINOPHEN 325 MG TABLET 650 MG PO (17:01)
[2020-06-10 17:48] LABS: Procalcitonin 0.43 ng/mL (<0.5)
--- NOTE | 2020-06-10 18:24 | DI.CT.S_ITS ---
PROCEDURE: CT ANGIO CHEST PE PROTOCOL INDICATIONS: r/o PE TECHNIQUE: After the administration of intravenous contrast, 2 mm thick sections acquired from the pulmonary apices to the posterior costophrenic angles. 3-dimensional maximum intensity projection (MIP) coronal and sagittal reformats were then acquired through the thorax. For radiation dose reduction, the following was used: automated exposure control, adjustment of mA and/or kV according to patient size. COMPARISON: None. FINDINGS: Image quality: Excellent. Pulmonary arteries: Pulmonary arteries are normal in size, and demonstrate no intraluminal filling defects to suggest central pulmonary embolism. Lungs and pleura: Lungs are clear. There is left basilar atelectasis. No pleural effusions or pneumothorax. Central and peripheral airways are patent. Mediastinum: Heart size is normal, without pericardial effusion. No mediastinal or hilar adenopathy. Thoracic aorta is normal in caliber and enhancement. The coronary arteries have atherosclerotic calcifications. Esophagus is normal in caliber, without hiatal hernia. Bones and chest wall: No suspicious bony lesions. Ribs and thoracic spine appear intact throughout. Thyroid gland is normal . No axillary or supraclavicular adenopathy. Abdomen: Visualized upper abdominal solid organs appear normal in the early arterial phase of enhancement. IMPRESSION: 1. No pulmonary embolism. 2. Left basilar atelectasis. Dictated by: Ihsan Aviles M.D. on 06/10/2020 at 19:29 Approved by: Ihsan Aviles M.D. on 06/10/2020 at 19:35
[2020-06-10 21:20] LABS: Add Manual Diff / Slide Review NO; Basophils Absolute Auto 0 /uL (0-100); Basophils Percent Auto 0.6 % (0-2); Eosinophils Absolute Auto 0 /uL (0-450); Hematocrit 26.1 % (41-53); Hemoglobin 8.4 g/dL (13.5-17.5); Lymphocytes Absolute Auto 300 /uL (1100-4500); Lymphocytes Percent Auto 10.6 % (25-40); Mean Corpuscular HGB Conc 32.3 % (30-36); Mean Corpuscular Hemoglobin 26.2 PG (26-34); Monocytes Absolute Auto 200 /uL (0-900); Monocytes Percent Auto 6.6 % (3-14); Neutrophils Absolute Auto 2300 /uL (1500-7000); Neutrophils Percent Auto 81.2 % (50-75); Platelet Count 93 X10^3/uL (150-400); Red Blood Cell Count 3.22 X10^6/uL (4.5-5.9); Red Cell Distribution Width 16.9 % (11.6-14.8); White Blood Cell Count 2.8 X10^3/uL (4.5-11.0)
[2020-06-11] VITALS (9 sets, daily range): BP systolic 87–126; BP diastolic 45–67; PULSE 63–88; RESP 14–16; TEMP 36.5–37.2; O2SAT 85–96
--- NOTE | 2020-06-11 00:19 | PC.NURSE ---
Addendum entered by Janessa Coto R.N. 06/11/20 06:16: 0500 Attempted to access Power PICC line for serum blood draw. PICC line is occluded. Attempted to flush several times, including a flush with heparin per order and nothing would break through the occlusion. Also replaced cap, but did not solve problem. Called labor relations teacher to do venous blood draw. ultrasound technician successful with venous blood draw. This note is to notify doctor and staff that the PICC line could not be accessed and may need to be removed. Originally placed at [facility]. Addendum entered by Janessa Coto R.N. 06/11/20 05:48: 0510 Notified by GRAIN CLEANER AND TRANSFER OPERATOR patient's oxygen saturation below 88% on room air during vital sign check. Administered 1LPM via NC. Oxygen saturation now back up to 94%. Informed patient we may have to keep him on continuous pulse oximeter measurements when we try to have him on RA again later this morning. No s/sx of distress. Patient's respirations were WNL. Original Note: 2300 Received safe patient hand-off. The patient is currently resting in bed, prone position with HOB elevated at 25 degrees. His oxygen saturation is at 92% on room air, currently. We will monitor his oxygen and provide supplementation PRN to keep above 88% per provider order. He has a right upper arm Power PICC line that is heparin-locked. He continues to have loose/frequent bowel movements, but is now attempting to use bedside commode at first sign of urgency which is an improvement from my shift the night prior. He will continue to get lidocaine jelly applied to anus Q8H PRN per provider order, after bowel movements, along with balm. He is rating his pain a 3/10 and associates that with his left hip; verbalizes rectal discomfort but states he is tolerating it currently. The bed alarm is on. No s/sx of distress.
[2020-06-11 05:40] LABS: Add Manual Diff / Slide Review NO; Basophils Absolute Auto 0 /uL (0-100); Basophils Percent Auto 0.6 % (0-2); Eosinophils Absolute Auto 0 /uL (0-450); Eosinophils Percent Auto 1.2 % (2-4); Hematocrit 27.1 % (41-53); Hemoglobin 8.9 g/dL (13.5-17.5); Lymphocytes Absolute Auto 500 /uL (1100-4500); Lymphocytes Percent Auto 16.5 % (25-40); Mean Corpuscular HGB Conc 32.7 % (30-36); Mean Corpuscular Hemoglobin 26.5 PG (26-34); Mean Corpuscular Volume 80.8 fL (80-100); Monocytes Absolute Auto 300 /uL (0-900); Monocytes Percent Auto 8.5 % (3-14); Neutrophils Absolute Auto 2200 /uL (1500-7000); Neutrophils Percent Auto 73.2 % (50-75); Platelet Count 102 X10^3/uL (150-400); Red Blood Cell Count 3.35 X10^6/uL (4.5-5.9)
[2020-06-11] MEDS: LIDOCAINE PATCH 1 EACH ADH..PATCH TOP (05:45)
[2020-06-11] MEDS: LIDOCAINE JELLY 2% 5 ML 1 APPLIC TOP ×2 (05:46→11:11)
[2020-06-11 05:50] LABS: Alanine Aminotransferase 26 IU/L (<50); Albumin 2.9 g/dL (3.5-5.0); Albumin Globulin Ratio 0.9 (1.0-2.8); Alkaline Phosphatase 75 U/L (38-126); Aspartate Aminotransferase 27 IU/L (17-59); BUN Creatinine Ratio 13.6 (6-22); Bilirubin Total 0.5 mg/dL (0.2-1.3); Bilirubin Unconjugated 0.2 mg/dL (0.0-1.1); Blood Urea Nitrogen 17 mg/dL (9-20); Carbon Dioxide 39 mmol/L (22-32); Chloride 93 mmol/L (98-107); Estimated Glomerular Filt Rate 57.1 mL/min (>60); Globulin 3.4 g/dL (1.7-4.1); Glucose 87 mg/dL (80-110); HEMOLYSIS < 15 (0-50); Magnesium 1.8 mg/dL (1.6-2.3); Potassium 3.8 mmol/L (3.4-5.1); Sodium 132 mmol/L (137-145); Total Protein 6.3 g/dL (6.3-8.2)
[2020-06-11 05:59] LABS: NT-proBNP (BNP-Adult 18+) 477 pg/mL (<125)
[2020-06-11 06:13] LABS: Adenovirus Not Detected (Not Detect); Bordetella pertussis Not Detected (Not Detect); Chlamydophila pneumoniae Not Detected (Not Detect); Coronavirus 229E Not Detected (Not Detect); Coronavirus HKU1 Not Detected (Not Detect); Coronavirus NL 63 Not Detected (Not Detect); Coronavirus OC43 Not Detected (Not Detect); Human Metapneumovirus Not Detected (Not Detect); Human Rhinovirus/Enterovirus Not Detected (Not Detect); Influenza A Not Detected (Not Detect); Influenza B Not Detected (Not Detect); Mycoplasma pneumoniae Not Detected (Not Detect); Parainfluenza Virus 1 Not Detected (Not Detect); Parainfluenza Virus 2 Not Detected (Not Detect); Parainfluenza Virus 3 Not Detected (Not Detect); Parainfluenza Virus 4 Not Detected (Not Detect); Respiratory Syncytial Virus Not Detected (Not Detect); SARS- CoV-2 Not Detected (Not Detecte)
[2020-06-11] MEDS: ACETAMINOPHEN 325 MG TABLET 650 MG PO (06:13)
[2020-06-11] MEDS: LEVOTHYROXINE 88 MCG TABLET PO (06:25)
--- NOTE | 2020-06-11 10:24 | CM.DPC ---
DCP Cont: Discussed patient during team rounds. Patient may most likely be ready for discharge today. Patient indicated, he may be willing to go to skilled rehab, but needs to discuss with his before she arrives here. Called [facility], they have no beds for today, but [facility] october. Waiting for to come in to discuss. Spoke to [place] at [facility] who will review. Sent her referral, H&P, med list, and P.T. notes, as well as face sheet. P: Will meet with patient and today to discuss senior living, versus home health. Chantel Crews RN/Case Management.
[2020-06-11] MEDS: OXYCODONE/ACETAMINOPHEN 5/325 TABLET 1 TAB PO (11:11)
[2020-06-11] MEDS: LOPERAMIDE 2 MG CAPSULE PO (11:11)
[2020-06-11] MEDS: ASCORBIC ACID 500 MG TABLET PO (11:11)
[2020-06-11] MEDS: SODIUM CHLORIDE 0.9% FLUSH 10 ML IV (11:13)
[2020-06-11] MEDS: predniSONE 5 MG TABLET 2.5 MG PO (11:14)
[2020-06-11] MEDS: ONDANSETRON 4 MG/2 ML INJ IV (11:14)
[2020-06-11] MEDS: LACTOBACILLUS ACIDOPHILUS TABLET 1 EACH PO (11:14)
[2020-06-11] MEDS: FAMCICLOVIR 500 MG 500 EACH PO (11:15)
[2020-06-11] MEDS: METOPROLOL ER 25 MG TABLET PO (11:17)
[2020-06-11] MEDS: MESALAMINE 1200 MG 1200 EACH PO (11:20)
--- NOTE | 2020-06-11 11:57 | CM.DPC ---
Addendum entered by Chantel Crews R.N. 06/11/20 12:19: Spoke to Yojana at [facility]. She is filling in for admissions this week-end and review. She is not sure if they have any male beds, but will ask admissions. Left a message with Paulette at [facility]. Original Note: DCP Cont: Discussed patient during team rounds. Patient had mentioned, he may be willing to go to a fdc facility. 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 Patient is also incontinent at times. Patient is medically ready for discharge today. Called some fdc rehab facilities. [facility] has no beds for today. Spoke to Deanne at [facility], and they are reviewing. They may be able to take patient today, but will let this case liner know. and patient are aware of rehab plan. Nurse, Rubi, has also discussed the need of rehab with patient and . Called Deanne in admissions, back at [facility]. She stated, nurse is still reviewing, is inquiring on goals of care. Let her know that the goal is to go back home with home health, not palliative yet at this time. She was inquiring if he will still be getting radiation. Let her know that this would be determined by oncology. She stated she would update the nurse reviewing, and call this senior planner back. Will go ahead and send referral to other facilities, [facility], and [facility], as well. P: DCP continuing to attempt finding a facility for patient. [facility] is reviewing, and can possibly accept patient today. She will call back. Will attempt [facility] and [facility], and will send referrals. Chantel Crews RN/Police Detective
--- NOTE | 2020-06-11 12:11 | PT.IPTN ---
Current Diagnoses Toxic encephalopathy (06/06/20) Physical Therapy Treatment Note M2 PT-IP Current Condition Start: 06/05/20 08:16 Freq: NEEDED Status: Active Protocol: Document 06/07/20 11:29 MA (Rec: 06/07/20 11:46 MA [id number]) Physical Therapy Current Condition Current Condition Evaluation Date 06/05/20 Treatment Diagnosis Anal squamous cell carcinoma; Gereralized weakness Onset Date 06/04/20 M3 PT-IP Subjective Start: 06/05/20 08:16 Freq: NEEDED Status: Active Protocol: Document 06/11/20 11:53 AW (Rec: 06/11/20 12:11 AW [id number]) Subjective Physical Therapy Visit Type Type Treatment Note Visit Start Time 11:14 Visit Stop Time 11:48 Total Visit Minutes 34 Notes Pt's present throughout treatment. Number of DRAWING FRAME TENDER Visits 0 Physical Therapy Visit Comments Patient Comments Pt is drowsy but willing to participate with PT. M4 PT-IP Mobility and Gait Start: 06/05/20 08:16 Freq: NEEDED Status: Active Protocol: Document 06/11/20 11:53 AW (Rec: 06/11/20 12:11 AW [id number]) PT-Bed Mobility Assessment Supine to Sit Supine to Sit Contact Guard Assistance,1 Person Assistance,Bedrails Scooting Scooting to Edge of Bed Contact Guard Assistance PT-Transfer Assessment Sit to and From Stand Sit to and from Stand Contact Guard Assistance,1 Person Assistance,Use of Upper Extremities Equipment Transfer Assistive Device Gait Belt,Front Wheeled Walker ,4 Wheeled Walker Orthotic/Prosthetic Devices or Brace: No Transfers Transfer Destination Chair Transfer Technique Stand Step Pivot Transfer Ability Level of Assist Contact Guard Assistance,1 Person Assistance,Use of Upper Extremities Comments Mobility Comments Pt sitting up in bed as PT arrived. He was drowsy and stated he'd had this reaction to percocet previously. BP was 82/49. Repeat BP two minutes later was 88/60. Pt denied symptoms. SpO2 remained 93%. Pt agreed to mobilize. He sat EOB, completing supine to sit CGA where BP improved to 108/ 58 and pt was more alert. SpO2 dropped to 87%. Pt placed on 1L/min and SpO2 roman to 94%. Pt stood from the bed in lowest position CGA and ambulated 12 feet with FWW before transferring to the chair. Pt asked about using a 4WW which would allow him to sit as needed if too tired. PT located 4WW for pt to trial and educated him on safety with 4WW including brakes management and techniques for sitting in seat. Pt stood from the chair CGA and ambulated around the room with 4WW CGA before transferring back to the chair. BP after activity was 111/60. SpO2 remained low to mid 90's during activity on 1L/min. Pt was left in chair as OT arrived. Gait Assessment Gait Gait Assistance Required: Contact Guard Assist Distance (Feet) 20 Assistive Devices Assistive Device Gait Belt,Front Wheeled Walker ,4 Wheeled Walker Orthotic/Prosthetic Devices or Brace: No Gait Deviations General Gait Pattern Antalgic,Decreased Stride Length,Decreased Feet Clearance Factors Limiting Gait Function Factors Limiting Gait Function Decreased Activity Tolerance, Decreased Strength,Poor Balance,Poor Safety Awareness Comments Gait Comments Pt is using AD for stability and confidence, minimal weightbearing. Trial with 4WW was successful with pt demonstrating good safety awareness. Stair Climbing Assessment Comments Stair Climbing Comments Not assessed. PT-Balance Assessment Sitting Balance and Reactions Static Sitting Balance Ability Normal Dynamic Sitting Balance Ability Good Standing Balance and Reactions Static Standing Balance Ability Good Dynamic Standing Balance Ability Fair M5 PT-IP Objective Assessments Start: 06/05/20 08:16 Freq: NEEDED Status: Active Protocol: Document 06/05/20 12:11 DE (Rec: 06/05/20 12:41 DE [id number]) Orientation Orientation/Cognition Level of Alertness Lethargic Orientation Name,Age,Birthday,Month,Date, Year,Day of Week,Place, Situation Language Function Ability No Deficits Noted Safety Awareness Understands Safety Issues Memory Description No Deficits Noted Gross Range of Motion Lower Extremity ROM Assessment Within Functional Limits Strength Lower Extremity Strength Assessment Bilaterally Impaired Comments Strength Comments Generalized weakness and fatigue Coordination Assessment Gross Coordination Gross Coordination WNL Sensation Assessment Sensation Gross Sensation WNL Light Touch Intact Muscle Tone Muscle Tone WNL Yes M6 PT-IP Treatment Start: 06/05/20 08:16 Freq: NEEDED Status: Active Protocol: Document 06/11/20 11:53 AW (Rec: 06/11/20 12:11 AW [id number]) Physical Therapy Treatment Education Education Provided Safety M7 PT-IP Assessment and Plan Start: 06/05/20 08:16 Freq: NEEDED Status: Active Protocol: Document 06/11/20 11:53 AW (Rec: 06/11/20 12:11 AW [id number]) PT Summary Assessment and Plan Potential Rehabilitation Potential Fair Status of Condition at Evaluation Stable Summary Impairments Pain,ROM,Strength,Balance, Coordination,Sensation,Tone, Cognition,Bed Mobility, Transfers,Gait,Activity Tolerance Progress Towards Goals Slow Progress due to Medical Issues,Slow Progress due to Activity Tolerance Assessment Summary Pt shows progress with mobility and activity tolerance but is still limited by fatigue and weakness. Pt and his agree with recommendation for SNF rehab as pt remains unable to independently manage pericare needs and is limited in ambulation tolerance. Goals Bed Mobility Goal Standby Assistance Transfer Goal Standby Assistance Gait Goal Standby Assistance Gait Distance 100 Other Goals Pt will perform 2 steps up and down CGA without railing. Days to Meet Goals 5 Frequency of Treatment Frequency Of Treatment Once a Day Treatment Plan Physical Therapy Treatment Plan Bed Mobility Training,Transfer Training,Gait Training, Therapeutic Exercise,Balance Retraining,Post Op Education, Discharge Planning,Hot or Cold Pack,Neuromuscular Re-ed Other Recommendations and Next Treatment Monitor SPO2, continue to Focus assess safety with 4WW Recommendations To Nursing Amount of Assist Needed 1 Person Assist Discharge Recommendations PT Discharge Recommendations SNF Rehab Other Discharge Recommendations HH needed if pt goes home. Equipment Needed for Home Before FWW if going home. Discharge Transportation Needs at Discharge Private Vehicle,Wheelchair/ Cabulance
--- NOTE | 2020-06-11 13:13 | P.DS_ITS ---
History of Present Illness History of Present Illness Date Patient Seen: 06/11/20 Chief complaint: Weakness/diarrhea Narrative: Aleksandar Bay is a 70-year-old male with past medical history si gnificant for ulcerative colitis, adrenal insufficiency, hypothyroidism, and recent diagnosis of locally advanced anal squamous cell carcinoma who presented to the ED due to rectal pain and generalized weakness. The patient was seen and discharged from [facility] for rectal bleeding thought to be possible UC flare with scheduled follow-up and colonscopy with GI Dr. Lebron at [facility] in mid March. He was found to have a partially obstructing mass in anus/rectum and was diagnosed with locally advanced anal squamous cell carcinoma. He recently started chemotherapy on 05/31 with 5 FU and mitomycin C. He is concurrently undergoing radiation with Dr. Beasley and has received 6 rounds thus far. He reports he is not eager to continue pursue radiation. The patient was seen in ED yesterday as well for dehydration and mild ANA (creatinine baseline 1.1. elevated to 1.4 and now back down to 1.2) in which he received IV fluids and was discharged home. He presents to the ED with persistent and severe rectal pain and he reports progressive weakness over the last 1 year but worse the last 3 days. He currently endorses mild headache, severe diarrhea in which anything he eats goes right through him, tenesmus and rectal pain controlled now with IV pain medication he received in the ED . He reports he is hungry now but notes a poor appetite overall. He denies chest pain, shortness of breath, cough, abdominal pain, nausea, vomiting, fever, chills, or dysuria. He does have diarrhea but reports at times he feels constipated. He has no other complaints. He is admitted observation for pain control and generalized weakness. Discharge Providers Provider Date of admission: 06/06/20 14:27 Discharge Date: 06/11/20 Primary care physician: Monica Collins DO Consults: 06/04/20 16:58 Consult to Dietitian, Adult Routine Comment: Reason For Exam: Reflexed from admission 06/04/20 18:50 Consult to Physical Therapy Evaluate & Treat Comment: Physician Instructions: Evaluate and Treat 06/06/20 10:09 Consult to Occupational Therapy Evaluate & Treat Comment: Physician Instructions: Evaluate and treat 06/07/20 06:21 Consult to Respiratory Therapy Evaluate & Treat Comment: change in lung sounds immune compromised Physician Instructions: Evaluate and treat 06/08/20 17:02 Consult to Respiratory Therapy Evaluate & Treat Comment: Physician Instructions: Evaluate and treat Discharge provider: Rehana Allen MD Summary Hospital Course Discharge Diagnosis: 1. Diarrhea s/p XRT and Chemo for Rectal Cancer 2. Squamous Cell Ca of the Rectum 3. Dehydration 4. Acute Kidney Injury-resolved 5. Acute on Chronic diastolic Heart failure 6. Acute Hypoxic Respiratory Failure 7. Pancytopenia s/p chem 8. HSV 9. GERD 10 Hypoxia, likely combination of obesity/hypoventilation and chronic COPD 11. hypothyroidism 12. adrenal insufficiency 13. Ulcerative Colitis 14. Weakness Hospital Course: Patient was admitted to the hospital for weakness, dehydration, diarrhea, and acute renal failure. He was given IV hydration with improvement of his renal function. CDiff was negative. Despite this he continued to have diarrhea which responded to immodium. The patient developed acute shortness of breath with hypoxia. He was also noted to be anemic and recieved 1 unit prbcc. He underwent Echo which showed a normal EF. Patient was found to have a left v entricular outflow obstruction. He was started on a beta-sonia for this. Unfortunately the patient developed hypotension and his beta-sonia was decreased to 12.5 twice daily. In addition given his persistent hypoxemia. There was no evidence of infiltrates. There were some bibasilar alveolar findings noted. Procalcitonin was negative, P patient did not have white count, and had no evidence of fever. Atient was therefore he was not treated for pneumonia. Patient was diuresed with improvement of his shortness of breath. He continued to have intermittant hypoxia.CT Angio was completed and negative for PE or pneumonia Patient was evaluated by PT/OT and given his weakness recommendations were made for skilled rehabiliation. Patient remained on steriods for his adrenal insufficiency. He made slow but steady progress. He had an outbreak of HSV on his buttocks. Medications were adjusted. He made excellent progress and was deemed appropriate for discharge to SNF. Patient will need to follow up with his Oncologist and Radiation Oncologist at discharge to discuss additional treatment of his rectal cancer. He was discharged for ongoing care to [facility]. Exam Vital Signs (past 8 hours): - 06/11/20 05:26 06/11/20 07:30 06/11/20 09:01 Temperature 98.1 F 98.9 F Pulse Rate 67 63 Respiratory Rate 16 16 Blood Pressure 107/45 L 126/67 Pulse Oximetry 95 92 06/11/20 10:12 06/11/20 11:37 06/11/20 12:49 Temperature 97.7 F Pulse Rate 88 71 Respiratory Rate 16 Blood Pressure 87/53 L Pulse Oximetry 94 96 Oxygen Delivery Method Room Air Oxygen Flow Rate 0 Narrative Exam Narrative: pleasant ill appearing male Lungs: decreased breath sounds CV: RRR nl Sl S2 Abd: soft/ non tender/ non distended Pelvis: multiple scattered ulcerative lesions on bilateraly buttocks Skin folds red Ext: no edema Objective Labs Result Diagrams: 06/11/20 05:20 06/11/20 05:20 Labs: Laboratory Results - last 24 hr 06/10/20 06/10/20 06/10/20 14:55 14:55 21:10 WBC 2.8 L RBC 3.22 L Hgb 8.4 L Hct 26.1 L MCV 81.0 MCH 26.2 MCHC 32.3 RDW 16.9 H Plt Count 93 L Neut % (Auto) 81.2 H Lymph % (Auto) 10.6 L [place] % (Auto) 6.6 Eos % (Auto) 1.0 L Baso % (Auto) 0.6 Neut # (Auto) 2300 Lymph # (Auto) 300 L [place] # (Auto) 200 Eos # (Auto) 0 Baso # (Auto) 0 D-Dimer 794 H Sodium Potassium Chloride Carbon Dioxide BUN Creatinine Estimated GFR BUN/Creatinine Ratio Glucose Calcium Magnesium Total Bilirubin Conjugated Bilirubin Unconjugated Bilirubin AST ALT Alkaline Phosphatase NT-Pro-B Natriuret Pep Total Protein Albumin Globulin Albumin/Globulin Ratio Procalcitonin 0.43 Chlamy pneumoniae PCR Adenovirus (PCR) B.parapertussis DNA PCR Coronavirus OC43 (PCR) Coronavirus HKU1 (PCR) Coronavirus 229E (PCR) COVID-19 PCR Coronavirus NL63 (PCR) Human Metapneumovir PCR Influenza Type A (PCR) Influenza Type B (PCR) M. pneumoniae (PCR) Parainfluenza 1 (PCR) Parainfluenza 2 (PCR) Parainfluenza 3 (PCR) Parainfluenza 4 (PCR) RSV (PCR) Entero/Rhino (PCR) 06/11/20 06/11/20 06/11/20 05:00 05:20 05:20 WBC 3.0 L RBC 3.35 L Hgb 8.9 L Hct 27.1 L MCV 80.8 MCH 26.5 MCHC 32.7 RDW 17.0 H Plt Count 102 L Neut % (Auto) 73.2 Lymph % (Auto) 16.5 L [place] % (Auto) 8.5 Eos % (Auto) 1.2 L Baso % (Auto) 0.6 Neut # (Auto) 2200 Lymph # (Auto) 500 L [place] # (Auto) 300 Eos # (Auto) 0 Baso # (Auto) 0 D-Dimer Sodium 132 L Potassium 3.8 Chloride 93 L Carbon Dioxide 39 H BUN 17 Creatinine 1.25 Estimated GFR 57.1 L BUN/Creatinine Ratio 13.6 Glucose 87 Calcium 9.0 Magnesium 1.8 Total Bilirubin 0.5 Conjugated Bilirubin 0.0 Unconjugated Bilirubin 0.2 AST 27 ALT 26 Alkaline Phosphatase 75 NT-Pro-B Natriuret Pep Total Protein 6.3 Albumin 2.9 L Globulin 3.4 Albumin/Globulin Ratio 0.9 L Procalcitonin Chlamy pneumoniae PCR Not detected Adenovirus (PCR) Not detected B.parapertussis DNA PCR Not detected Coronavirus OC43 (PCR) Not detected Coronavirus HKU1 (PCR) Not detected Coronavirus 229E (PCR) Not detected COVID-19 PCR Not detected Coronavirus NL63 (PCR) Not detected Human Metapneumovir PCR Not detected Influenza Type A (PCR) Not detected Influenza Type B (PCR) Not detected M. pneumoniae (PCR) Not detected Parainfluenza 1 (PCR) Not detected Parainfluenza 2 (PCR) Not detected Parainfluenza 3 (PCR) Not detected Parainfluenza 4 (PCR) Not detected RSV (PCR) Not detected Entero/Rhino (PCR) Not detected 06/11/20 05:20 WBC RBC Hgb Hct MCV MCH MCHC RDW Plt Count Neut % (Auto) Lymph % (Auto) [place] % (Auto) Eos % (Auto) Baso % (Auto) Neut # (Auto) Lymph # (Auto) [place] # (Auto) Eos # (Auto) Baso # (Auto) D-Dimer Sodium Potassium Chloride Carbon Dioxide BUN Creatinine Estimated GFR BUN/Creatinine Ratio Glucose Calcium Magnesium Total Bilirubin Conjugated Bilirubin Unconjugated Bilirubin AST ALT Alkaline Phosphatase NT-Pro-B Natriuret Pep 477 H Total Protein Albumin Globulin Albumin/Globulin Ratio Procalcitonin Chlamy pneumoniae PCR Adenovirus (PCR) B.parapertussis DNA PCR Coronavirus OC43 (PCR) Coronavirus HKU1 (PCR) Coronavirus 229E (PCR) COVID-19 PCR Coronavirus NL63 (PCR) Human Metapneumovir PCR Influenza Type A (PCR) Influenza Type B (PCR) M. pneumoniae (PCR) Parainfluenza 1 (PCR) Parainfluenza 2 (PCR) Parainfluenza 3 (PCR) Parainfluenza 4 (PCR) RSV (PCR) Entero/Rhino (PCR) [facility] Medical History Acquired hypothyroidism Acute dehydration Anal cancer Anal squamous cell carcinoma (~02/2020) Anemia (10/13/13) C. 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 Syncope Ulcerative colitis Ulcerative colitis Ventral hernia without obstruction or gangrene (08/07/16) Surgical History Fractures History of neck surgery (~2006) History of nephrectomy (~08/2015) History of third molar tooth extraction History of tonsillectomy (~1955) History of tonsillectomy (~1956) History of tonsillectomy (~1959) Status post colonoscopy Family History Mother Congestive heart failure Father Liver failure Alzheimer's dementia Social History household members: spouse Smoking Status: Former smoker alcohol intake: never Discharge Assessment & Plan Assessment and Plan Assessment: Acute Kidney Injury secondary to dehydration Diarrhea s/p treatment for squamous cell carcinoma of the rectum Ulcerative Colitis Acute Diastolic Heart Failure Acute on Chronic Hypoxemic Respiratory Failure HSV GERD Hypothyroidism adrenal insufficiency weakness Plan of Treatment: discharge to SNF for ongoing care. F/U with Oncology/Rad Onc as an outpatient Discharge Plan Discharge Plan Patient Disposition: SNF Transfer to: [facility] [place] Consult as needed: Dental, Hearing, Mental health, Podiatry and Vision Discharge orders & Medications Prescriptions: New loperamide 2 mg Capsule 2 mg PO QID PRN (Reason: Diarrhea) 14 Days RF: 0 oxycodone-acetaminophen 5-325 mg Tablet 1 tab PO Q4HR PRN (Reason: Pain, Moderate (4-6)) Qty: 30 RF: 0 lidocaine 5 % Adhesive Patch,Medicated 1 ea topical BEDTIME 14 Days RF: 0 calcium carbonate 200 mg calcium (500 mg) Tablet,Chewable 1,000 mg PO Q4HR PRN (Reason: Dyspepsia) 10 Days RF: 0 Continued fluticasone propionate 50 mcg/actuation spray,suspension 1 spray Intranasal BID PRN (Reason: Congestion) Qty: 18.2 RF: 1 methyl B12 1 tab 1,000 mcg PO WEEKLY RF: 0 prednisone 5 mg tablet 2.5 mg PO BID RF: 0 famciclovir 250 mg tablet 250 mg PO BID PRN (Reason: herpes zoster) Qty: 30 RF: 1 cholecalciferol (vitamin D3) 2,000 unit capsule 2,000 unit PO WEEKLY RF: 0 Probiotic 20 billion cell Capsule 1 cap PO DAILY RF: 0 turmeric 300 mg 600 mg PO DAILY RF: 0 Iron Complex 27 mg 1 tab PO WEEKLY RF: 0 levothyroxine [Euthyrox] 88 mcg tablet 88 mcg PO DAILY RF: 0 L-Glutamine 500 mg capsule 500 mg PO DAILY RF: 0 econazole 1 % cream 1 applictn TOP BID PRN (Reason: Rash) RF: 0 mesalamine [Lialda] 1.2 gram Tablet,Delayed Release (Dr/Ec) 1.2 g PO BID RF: 0 diazepam 5 mg tablet 5 mg PO DAILY RF: 0 ascorbic acid (vitamin C) 500 mg Tablet 500 mg PO WEEKLY RF: 0 geriatric qinalobw-[id number]-eufr Tablet 1 tab PO WEEKLY RF: 0 Follow up/Referrals: Monica Collins DO [Primary Care Provider] - Discharge Data Primary Care Provider: Monica Collins VTE Deep Vein Thrombosis/Pulmonary Embolism Present on Admission: No
--- NOTE | 2020-06-11 13:13 | CM.DPC ---
DCP Cont: Spoke to Mina, in admissions at [facility]. Stated, they should be able to accept patient today, will work on transportation. Updated Dr. Allen. Updated nurse Rubi. Did have a conversation with , earlier, and confirmed with he, she doesn't really think she can manage him at home, since he is weak, and I have to work. Plan is for her daughter to come up and assist when he goes home. P: Plan is for [facility] today. Awaiting confirmation of pickling grader and for orders. Will complete PASSR. Chantel Crews, SABRINA/Senior Mechanical Project Manager
--- NOTE | 2020-06-11 13:21 | OT.IP.TRT ---
Current Diagnoses Toxic encephalopathy (06/06/20) Occupational Therapy Treatment Note M2 OT-IP Current Condition Start: 06/06/20 16:32 Freq: Status: Active Protocol: Document 06/06/20 14:16 [facility] (Rec: 06/06/20 17:00 [facility] [id number]) Occupational Therapy Current Condition Current Condition Evaluation Date 06/06/20 Treatment Diagnosis Acute dehydration, anal squamous cell carcinoma Diagnosis Onset Date 06/04/30 M3 OT- IP Subjective and Pain Start: 06/06/20 16:32 Freq: Status: Active Protocol: Document 06/11/20 13:09 RM (Rec: 06/11/20 13:21 RM [id number]) OT- Subjective Occupational Therapy Visit Type Type Treatment Note Visit Start Time 11:50 Visit Stop Time 12:50 Total Visit Minutes 60 Notes present throughout treatment. Occupational Therapy Visit Comments Patient Comments I am feeling more alert. Patient/Caregiver Goals Return home with . Planning to transfer to rehab to continue strengthening prior to return home. OT Pain Assessment Pain When Pain Assessed At Rest Pain Present Pain Present Denied Pain M4 OT- IP ADL's Start: 06/06/20 16:32 Freq: Status: Active Protocol: Document 06/11/20 13:09 RM (Rec: 06/11/20 13:21 RM [id number]) OT [id number] General Evaluation Self-Feeding Ability Independent Comments OT Self-Feeding Comments Patient able to complete self- feeding seated without difficulty. OT ADL-Grooming General Evaluation Grooming Ability Standby Assistance Areas Needing Assistance Retrieving/Set-up of Grooming Items Comments OT Grooming Comments Patient completed shaving in sitting s/u only. Washed face standing at sink with SBA for balance and cues for safe and appropriate use of 4WW with ADL routines. OT ADL-Dressing General Eval Upper Body Dressing Ability Independent Lower Body Dressing Ability Minimal Assistance Comments OT Dressing Comments Patient able to don/doff hospital gown w/ s/u only, requires assist to don brief over feet but then able to pull up in standing with SBA. OT ADL-Toileting Comments OT Toileting Comments discussed adaptations for perineal hygiene to assist with pain management with patient and verbalizing good understanding. M6 OT- IP Functional Cognition Start: 06/06/20 16:32 Freq: Status: Active Protocol: Document 06/11/20 13:09 RM (Rec: 06/11/20 13:21 RM [id number]) Cognitive Factors Limiting Selfcare Function Cognitive Ability Level of Alertness Alert Attention Span Ability Capable of Focused Attention, Capable of Sustained Attention Safety Awareness Decreased Recall of Precautions Cognitive Comments Cognitive Assessment Comments Patient required several cues to safely incorporate 4WW into ADL routine. OT- Vision and Hearing OT- Hearing Assessment OT- Hearing Assessment Hearing Impaired OT- Vision Assessment Visual Acuity WFL,Glasses All The Time Visual Attentiveness WFL M7 OT- IP Mobility and Balance Start: 06/06/20 16:32 Freq: Status: Active Protocol: Document 06/11/20 13:09 RM (Rec: 06/11/20 13:21 RM [id number]) OT-Transfer Assessment Sit to and From Stand Sit to and from Stand Standby Assistance Transfers Transfer Ability Standby Assistance Technique Transfer Destination Chair Devices Transfer Assistive Devices 4 Wheeled Walker OT- Gait Assessment Gait Gait Assistance Required: Standby Assistance Assistive Devices Assistive Device 4 Wheeled Walker Comments Gait Ability Comments Patient ambulating in room to access sink with SBA using 4WW . Did note some report of dizziness after completing grooming at sink with BP: 69/39 and HR 86. Rechecked and still low at 87/53 and HR 78 with RN alerted. Positioned with legs elevated and BP increased to 109/61 and HR 73. O2 sats stable on RA throughout treatment for both seated and standing activity maintaining above 93%. M9 OT- IP Assessment and Plan Start: 06/06/20 16:32 Freq: Status: Active Protocol: Document 06/11/20 13:09 RM (Rec: 06/11/20 13:21 RM [id number]) OT Summary Assessment and Plan Potential Rehabilitation Potential Good Summary OT Impairments Strength,Balance,Functional Cognition,Functional Mobility, Dressing,Toileting,Bathing, Toilet Transfers,Shower Transfers,Activity Tolerance Progress Towards Goals Progressing Toward Goals Assessment Summary Patient is a 70 year old male demonstrating improvement in activity tolerance participating in seated and standing ADL activity. Did note drop in BP with standing activity and report of dizziness with RN alerted. O2 sats were stable on RA above 93% for both seated and standing activity. He does require cues to safely incorporate 4WW with ADL routines and will benefit from ongoing education and training. Also benefits from cues to complete ADLs to fullest ability and may benefit from additional training with LB dressing to improve independence. Also discussed adaptations for perineal hygiene to assist with pain management with patient and verbalizing good understanding. Discharge Recommendations OT Discharge Recommendations SNF Rehab Transportation Needs at Discharge Private Vehicle
[2020-06-11 14:13] LABS: COVID19 -Nasal RAPID Negative (Negative)
--- NOTE | 2020-06-11 14:51 | PC.NURSE ---
pt with frequent loose liquid stool equal times continent and incontinence - skin remains fragile to lower back/buttocks and perianal area- room air spo2 88-94% lungs dim but clear - taking po fair, plan for discharge to [facility] - REPORT CALLED AND AWAITING TRANSPORT AT THIS TIME
== END 2020-06-11 15:27 | DRG 91 ==
LOC: ED 11:36 → AC 15:50 → ICU 16:37 → AC 06-09 03:29
PROVIDERS: Internal Medicine; Nurse Practitioner Family; Admitting Provider Internal Medicine; Emergency Provider Emergency Medicine; PCP Family Medicine; Visit Provider Internal Medicine
DX: G92 Toxic encephalopathy (principal); D61.810 Antineoplastic chemotherapy induced pancytopenia; J96.01 Acute respiratory failure with hypoxia; I50.33 Acute on chronic diastolic (congestive) heart failure; C21.0 Malignant neoplasm of anus, unspecified; K51.90 Ulcerative colitis, unspecified, without complications; E27.3 Drug-induced adrenocortical insufficiency; N17.9 Acute kidney failure, unspecified; K91.89 Other postprocedural complications and disorders of digestive system; K52.1 Toxic gastroenteritis and colitis; K62.4 Stenosis of anus and rectum; E86.0 Dehydration; T45.1X5A Adverse effect of antineoplastic and immunosuppressive drugs, initial encounter; I51.7 Cardiomegaly; T38.0X5A Adverse effect of glucocorticoids and synthetic analogues, initial encounter; E03.9 Hypothyroidism, unspecified; K62.89 Other specified diseases of anus and rectum; T40.2X5A Adverse effect of other opioids, initial encounter; Z20.828 Contact with and (suspected) exposure to other viral communicable diseases; Z87.891 Personal history of nicotine dependence; Z85.528 Personal history of other malignant neoplasm of kidney; Z90.5 Acquired absence of kidney
CPT/HCPCS: 36415; 36430; 36592; 70450; 71045; 71046; 71275; 76770; 80048; 80053; 80076; 81001; 83605; 83690; 83735; 83880; 84145; 84484; 85007; 85025; 85379; 86850; 86900; 86901; 87040; 87507; 87633; 87635; 87797; 90471; 90662; 93005; 93010; 93306; 94762; 96361; 96374; 96375; 97110; 97116; 97162; 97165; 97530; 97535; 99284; G0378; P9016; J1170; J1642; J1940; J2310; J2405; Q9967

== ENCOUNTER 2020-07-02 11:37 | Emergency (ER) | payer MEDICARE, SELFPAY ==
[2020-06-04 16:38] VITALS: BMI 35.9
[2020-07-02] VITALS (26 sets, daily range): BP systolic 100–145; BP diastolic 57–85; PULSE 60–73; RESP 11–26; TEMP 36.4; O2SAT 91–99; BMI 34.2
--- NOTE | 2020-07-02 12:06 | PC.NURSE ---
while in triage, i started iv access. completed. talking with pt while i labeled the tubes, pt suddenly states i don't feel good, pt passed out and vomited yellow/gold up through his nose, pushed pt forward and opened his mouth. check radial pulse, unable to palpate. called a code blue to assist with pt. seconds later pt opened his eyes, assisted to ramesh by RT and RNdr at bedside, moved to room 1.
--- NOTE | 2020-07-02 12:10 | ED.WEAKNESS ---
HPI - Weakness General Chief complaint: Weakness Stated complaint: feel bad, BP low Time Seen by Provider: 07/02/20 12:08 Source: patient and family () Mode of arrival: Wheelchair Limitations: no limitations History of Present Illness HPI Narrative: This is a 70-year-old male who presents emergency department with dizziness, feeling weak and low blood pressure. Patient has known anal cancer, he is supposed to start chemotherapy in the next week. He has required transfusions in the past. He states that he has had daily diarrhea. He has not appreciated any black or bloody stool. He has not had any syncope but has felt like he is going to pass out. He has been nauseated and vomited initially when he arrived in the emergency department. He denies any chest pain or pressure, occasional shortness of breath with exertion. He denies any abdominal pain. Patient denies urinary issues. He is not currently anticoagulated. He did have cauterization of the blood vessels over at [facility] recently. Patient is following with Dr. Ybarra at [facility] for his gastroenterology care. Related Data Home Medications Medication Instructions Recorded Confirmed cholecalciferol (vitamin D3) 50 2,000 unit PO WEEKLY 04/23/18 06/04/20 mcg (2,000 unit) capsule Probiotic 1 cap PO DAILY 07/23/18 06/04/20 turmeric 600 mg PO DAILY 07/23/18 06/04/20 Iron Complex 1 tab PO WEEKLY 09/10/18 06/04/20 mesalamine [Lialda] 1.2 g PO BID 09/30/18 06/04/20 methyl B12 1,000 mcg PO WEEKLY 02/02/20 06/04/20 L-Glutamine 500 mg PO DAILY 03/24/20 06/04/20 econazole 1 applictn TOP BID PRN 03/24/20 06/04/20 levothyroxine [Euthyrox] 88 mcg PO DAILY 03/24/20 06/04/20 prednisone 5 mg tablet 2.5 mg PO BID 04/18/20 06/04/20 ascorbic acid (vitamin C) 500 mg PO WEEKLY 06/04/20 06/04/20 diazepam 5 mg PO DAILY 06/04/20 06/04/20 geriatric [id number] 1 tab PO WEEKLY 06/04/20 06/04/20 Previous Rx's Medication Instructions Recorded fluticasone propionate 50 1 spray INTRANASAL BID PRN #18.2 ml 10/04/19 mcg/actuation nasal spray,suspension famciclovir 250 mg tablet 250 mg PO BID PRN #30 tab 04/20/20 oxycodone-acetaminophen 1 tab PO Q4HR PRN #30 tab 06/11/20 metoprolol succinate 25 mg 12.5 mg PO BID #90 tab 06/26/20 tablet,extended release 24 hr Allergies Allergy/AdvReac Type Severity Reaction Status Date / Time cefazolin [CEFAZOLIN] Allergy Severe rash Verified 06/04/20 13:26 levofloxacin [From LEVAQUIN] Allergy Mild Verified 06/04/20 13:26 morphine [MORPHINE] Allergy Mild STOPPED Verified 06/04/20 13:26 BREATHING. Review of Systems Review of Systems ROS Unobtainable: All systems reviewed & are unremarkable except as noted in HPI and below Patient History Medical History Acquired hypothyroidism Acute dehydration Anal cancer Anal squamous cell carcinoma (~02/2020) Anemia (10/13/13) C. 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 Syncope Ulcerative colitis Ulcerative colitis Ventral hernia without obstruction or gangrene (08/07/16) Surgical History Fractures History of neck surgery (~2006) History of nephrectomy (~08/2015) History of third molar tooth extraction History of tonsillectomy (~1955) History of tonsillectomy (~1956) History of tonsillectomy (~1959) Status post colonoscopy Family History Mother Congestive heart failure Father Liver failure Alzheimer's dementia Social History household members: spouse Smoking Status: Former smoker alcohol intake: never Smoking Status: Former smoker alcohol intake frequency: holidays/special occasions only Alcohol type: other Substance Use Type: does not use Exam Narrative Exam Narrative: GEN: pale, unwell appearing male, alert and oriented x 3, patient appears to be in moderate distress. HEENT: Atraumatic, pupils are equal round reactive to light, extraocular movements are intact, nares are clear, TMs are clear with no fluid, there is conjunctival pallor. Throat is clear without any exudates, erythema, tonsillar enlargement or uvular deviation HEART: Regular rate and rhythm without murmur, clicks, rubs. Pulses are equal in upper and lower extremities LUNGS:Lungs clear to auscultation, no wheezes, rales, crackles, chest moves symmetrically, positive for tachypnea. No accessory muscle use. ABD:bowel sounds normal, soft, non-tender, positive for distension no guarding, rebound, rigidity, no masses noted, no hepatosplenomegaly, stool occult negative. Patient does have some erythema around the edge of the rectum but no skin breakdown appreciated. :No CVA tenderness MSCL: Non-tender, no muscle atrophy NEURO:CN 2-12 intact, sensation normal SKIN: Pallor, no ecchymosis or petechiae appreciated. Initial Vital Signs Initial Vital Signs: Vital Signs Temperature 97.5 F L 07/02/20 11:44 Pulse Rate 73 07/02/20 11:44 Respiratory Rate 18 07/02/20 11:44 Blood Pressure 110/61 07/02/20 11:44 Pulse Oximetry 97 07/02/20 11:44 Course Orders Ordered: ED Orders 07/02/20 12:00 Complete Blood Count AUTO DIFF Stat Comprehensive Metabolic Panel Stat Lactate (Lactic Acid) Stat Partial Thromboplastin Time Stat Prothrombin Time INR Stat Troponin I Stat 07/02/20 12:05 EKG-12 Lead Stat 07/02/20 12:09 CT abdomen pelvis w con Stat XR chest 1V Stat 07/02/20 12:20 Lipase Stat Procalcitonin Stat Type and Screen Stat 07/02/20 13:49 COVID19 Stat 07/02/20 14:40 Blood Culture Stat 07/02/20 15:35 EKG-12 Lead Stat 07/02/20 15:51 Troponin I Stat 07/02/20 17:31 GI Panel (Film Array) Stat Discontinued Medications Sodium Chloride (Normal Saline 0.9%) 1,000 mls @ 1,000 mls/hr IV BOLUS ONE Stop: 07/02/20 13:07 Last Infusion: 07/02/20 14:18 Dose: 0 mls/hr Documented by: Infusion: 07/02/20 13:12 Dose: 1,000 mls/hr Documented by: Infusion: 07/02/20 12:50 Dose: 0 mls/hr Documented by: Admin: 07/02/20 12:16 Dose: 1,000 mls/hr Documented by: JESSI Ondansetron HCl (Ondansetron 4 Mg/2 Ml Inj) 4 mg IV NOW ONE Stop: 07/02/20 12:09 Last Admin: 07/02/20 12:15 Dose: 4 mg Documented by: JESSI Vital Signs Vital signs: Vital Signs - 8 hr 07/02/20 11:44 07/02/20 12:04 07/02/20 12:05 Temperature 97.5 F L Pulse Rate 73 67 Respiratory Rate 18 26 H Blood Pressure 110/61 110/71 Pulse Oximetry 97 95 07/02/20 12:30 07/02/20 12:31 07/02/20 13:06 Temperature Pulse Rate 62 63 66 Respiratory Rate 16 14 13 Blood Pressure 102/64 Pulse Oximetry 95 97 07/02/20 13:08 07/02/20 13:15 07/02/20 13:30 Temperature Pulse Rate 63 60 61 Respiratory Rate 11 L 13 14 Blood Pressure 145/67 H 135/74 141/71 H Pulse Oximetry 94 95 93 07/02/20 13:45 07/02/20 14:00 07/02/20 14:15 Temperature Pulse Rate 63 63 60 Respiratory Rate 17 19 12 Blood Pressure 136/75 132/75 105/57 L Pulse Oximetry 96 99 95 07/02/20 14:30 07/02/20 14:31 07/02/20 14:45 Temperature Pulse Rate 65 63 66 Respiratory Rate 17 18 23 Blood Pressure 113/66 117/69 Pulse Oximetry 96 96 97 07/02/20 15:00 07/02/20 15:15 07/02/20 15:30 Temperature Pulse Rate 69 68 65 Respiratory Rate 16 13 Blood Pressure 102/60 114/67 Pulse Oximetry 93 93 91 07/02/20 15:31 07/02/20 15:45 07/02/20 16:00 Temperature Pulse Rate 64 62 63 Respiratory Rate 15 18 17 Blood Pressure 144/73 H 138/70 128/66 Pulse Oximetry 96 95 95 07/02/20 16:30 07/02/20 17:00 07/02/20 17:30 Temperature Pulse Rate 65 64 69 Respiratory Rate 23 14 13 Blood Pressure 106/64 100/63 Pulse Oximetry 97 96 97 07/02/20 18:00 07/02/20 18:55 Temperature Pulse Rate 70 70 Respiratory Rate 24 16 Blood Pressure 112/85 Pulse Oximetry 94 99 MDM - Weakness Lab Data Attestation: I reviewed the patient's lab results. Result diagrams: 07/02/20 12:00 07/02/20 12:00 Labs: Lab Results 07/02/20 07/02/20 07/02/20 Range/Units 12:00 12:00 12:00 WBC 7.3 (4.5-11.0) X10^3/uL RBC 3.99 L (4.5-5.9) X10^6/uL Hgb 10.6 L (13.5-17.5) g/dL Hct 33.2 L (41-53) % MCV 83.3 (80-100) fL MCH 26.7 (26-34) PG MCHC 32.0 (30-36) % RDW 21.6 H (11.6-14.8) % Plt Count 244 (150-400) X10^3/uL Neut % (Auto) 76.8 H (50-75) % Lymph % (Auto) 14.2 L (25-40) % Griggs % (Auto) 6.9 (3-14) % Eos % (Auto) 1.2 L (2-4) % Baso % (Auto) 0.9 (0-2) % Neut # (Auto) 5600 (8899-5750) /uL Lymph # (Auto) 1000 L (9037-5754) /uL Griggs # (Auto) 500 (0-900) /uL Eos # (Auto) 100 (0-450) /uL Baso # (Auto) 100 (0-100) /uL RBC Morphology See below Hypochromasia 1+ H Microcytosis 1+ H PT 11.8 (10.1-12.7) SECONDS INR 1.0 (0.9-1.3) APTT 31 (26.4-36.2) SECONDS Sodium 138 (137-145) mmol/L Potassium 3.5 (3.4-5.1) mmol/L Chloride 101 (98-107) mmol/L Carbon Dioxide 33 H (22-32) mmol/L BUN 15 (9-20) mg/dL Creatinine 1.25 (0.66-1.25) mg/dL Estimated GFR 57.1 L (>60) mL/min BUN/Creatinine Ratio 12.0 (6-22) Glucose 91 (80-110) mg/dL Lactate (0.7-2.1) mmol/L Calcium 9.0 (8.4-10.2) mg/dL Total Bilirubin 0.3 (0.2-1.3) mg/dL AST 26 (17-59) IU/L ALT 19 (<50) IU/L Alkaline Phosphatase 76 (38-126) U/L Troponin I < 0.012 (0.01-0.034) ng/mL Total Protein 7.0 (6.3-8.2) g/dL Albumin 3.5 (3.5-5.0) g/dL Globulin 3.5 (1.7-4.1) g/dL Albumin/Globulin Ratio 1.0 (1.0-2.8) Lipase (23-300) U/L Procalcitonin (<0.5) ng/mL Stl C. cayetanensis PCR (Not Detect) Stool Rotavirus (PCR) (Not Detect) Stool Adenovirus (PCR) (Not Detect) Stool Astrovirus (PCR) (Not Detect) Stool Cryptosporidium PCR (Not Detect) Stl E.coli Shiga Tox PCR (Not Detect) St Sh/Enteroin Ecoli PCR (Not Detect) Stool E coli O157 PCR Stl Enterotoxigenic E PCR (Not Detect) Stool EPEC (PCR) (Not Detect) Stl E. histolytica PCR (Not Detect) Stool Giardia Lamblia PCR (Not Detect) Stool Sapovirus (PCR) (Not Detect) Stl P. shigelloides PCR (Not Detect) St Y.enterocolitica PCR (Not Detect) Stool Vibrio (PCR) (Not Detect) Stl Vibrio cholerae PCR (Not Detect) Stl Enteroaggr Ecoli PCR (Not Detect) Stl Norovirus GI/GII PCR (Not Detect) Campylobacter (PCR) (Not Detect) C. difficile Tox (PCR) (Not Detect) SARS-CoV-2 (PCR) (Negative) Salmonella (PCR) (Not Detect) Blood Type Antibody Screen 07/02/20 07/02/20 07/02/20 Range/Units 12:00 12:20 12:20 WBC (4.5-11.0) X10^3/uL RBC (4.5-5.9) X10^6/uL Hgb (13.5-17.5) g/dL Hct (41-53) % MCV (80-100) fL MCH (26-34) PG MCHC (30-36) % RDW (11.6-14.8) % Plt Count (150-400) X10^3/uL Neut % (Auto) (50-75) % Lymph % (Auto) (25-40) % Griggs % (Auto) (3-14) % Eos % (Auto) (2-4) % Baso % (Auto) (0-2) % Neut # (Auto) (7907-4033) /uL Lymph # (Auto) (0099-6800) /uL Griggs # (Auto) (0-900) /uL Eos # (Auto) (0-450) /uL Baso # (Auto) (0-100) /uL RBC Morphology Hypochromasia Microcytosis PT (10.1-12.7) SECONDS INR (0.9-1.3) APTT (26.4-36.2) SECONDS Sodium (137-145) mmol/L Potassium (3.4-5.1) mmol/L Chloride (98-107) mmol/L Carbon Dioxide (22-32) mmol/L BUN (9-20) mg/dL Creatinine (0.66-1.25) mg/dL Estimated GFR (>60) mL/min BUN/Creatinine Ratio (6-22) Glucose (80-110) mg/dL Lactate 1.2 (0.7-2.1) mmol/L Calcium (8.4-10.2) mg/dL Total Bilirubin (0.2-1.3) mg/dL AST (17-59) IU/L ALT (<50) IU/L Alkaline Phosphatase (38-126) U/L Troponin I (0.01-0.034) ng/mL Total Protein (6.3-8.2) g/dL Albumin (3.5-5.0) g/dL Globulin (1.7-4.1) g/dL Albumin/Globulin Ratio (1.0-2.8) Lipase (23-300) U/L Procalcitonin < 0.05 (<0.5) ng/mL Stl C. cayetanensis PCR (Not Detect) Stool Rotavirus (PCR) (Not Detect) Stool Adenovirus (PCR) (Not Detect) Stool Astrovirus (PCR) (Not Detect) Stool Cryptosporidium PCR (Not Detect) Stl E.coli Shiga Tox PCR (Not Detect) St Sh/Enteroin Ecoli PCR (Not Detect) Stool E coli O157 PCR Stl Enterotoxigenic E PCR (Not Detect) Stool EPEC (PCR) (Not Detect) Stl E. histolytica PCR (Not Detect) Stool Giardia Lamblia PCR (Not Detect) Stool Sapovirus (PCR) (Not Detect) Stl P. shigelloides PCR (Not Detect) St Y.enterocolitica PCR (Not Detect) Stool Vibrio (PCR) (Not Detect) Stl Vibrio cholerae PCR (Not Detect) Stl Enteroaggr Ecoli PCR (Not Detect) Stl Norovirus GI/GII PCR (Not Detect) Campylobacter (PCR) (Not Detect) C. difficile Tox (PCR) (Not Detect) SARS-CoV-2 (PCR) (Negative) Salmonella (PCR) (Not Detect) Blood Type O Positive Antibody Screen Negative 07/02/20 07/02/20 07/02/20 Range/Units 12:20 13:49 15:51 WBC (4.5-11.0) X10^3/uL RBC (4.5-5.9) X10^6/uL Hgb (13.5-17.5) g/dL Hct (41-53) % MCV (80-100) fL MCH (26-34) PG MCHC (30-36) % RDW (11.6-14.8) % Plt Count (150-400) X10^3/uL Neut % (Auto) (50-75) % Lymph % (Auto) (25-40) % Griggs % (Auto) (3-14) % Eos % (Auto) (2-4) % Baso % (Auto) (0-2) % Neut # (Auto) (1568-1878) /uL Lymph # (Auto) (7705-0522) /uL Griggs # (Auto) (0-900) /uL Eos # (Auto) (0-450) /uL Baso # (Auto) (0-100) /uL RBC Morphology Hypochromasia Microcytosis PT (10.1-12.7) SECONDS INR (0.9-1.3) APTT (26.4-36.2) SECONDS Sodium (137-145) mmol/L Potassium (3.4-5.1) mmol/L Chloride (98-107) mmol/L Carbon Dioxide (22-32) mmol/L BUN (9-20) mg/dL Creatinine (0.66-1.25) mg/dL Estimated GFR (>60) mL/min BUN/Creatinine Ratio (6-22) Glucose (80-110) mg/dL Lactate (0.7-2.1) mmol/L Calcium (8.4-10.2) mg/dL Total Bilirubin (0.2-1.3) mg/dL AST (17-59) IU/L ALT (<50) IU/L Alkaline Phosphatase (38-126) U/L Troponin I < 0.012 (0.01-0.034) ng/mL Total Protein (6.3-8.2) g/dL Albumin (3.5-5.0) g/dL Globulin (1.7-4.1) g/dL Albumin/Globulin Ratio (1.0-2.8) Lipase 46 (23-300) U/L Procalcitonin (<0.5) ng/mL Stl C. cayetanensis PCR (Not Detect) Stool Rotavirus (PCR) (Not Detect) Stool Adenovirus (PCR) (Not Detect) Stool Astrovirus (PCR) (Not Detect) Stool Cryptosporidium PCR (Not Detect) Stl E.coli Shiga Tox PCR (Not Detect) St Sh/Enteroin Ecoli PCR (Not Detect) Stool E coli O157 PCR Stl Enterotoxigenic E PCR (Not Detect) Stool EPEC (PCR) (Not Detect) Stl E. histolytica PCR (Not Detect) Stool Giardia Lamblia PCR (Not Detect) Stool Sapovirus (PCR) (Not Detect) Stl P. shigelloides PCR (Not Detect) St Y.enterocolitica PCR (Not Detect) Stool Vibrio (PCR) (Not Detect) Stl Vibrio cholerae PCR (Not Detect) Stl Enteroaggr Ecoli PCR (Not Detect) Stl Norovirus GI/GII PCR (Not Detect) Campylobacter (PCR) (Not Detect) C. difficile Tox (PCR) (Not Detect) SARS-CoV-2 (PCR) Negative (Negative) Salmonella (PCR) (Not Detect) Blood Type Antibody Screen 07/02/20 Range/Units 17:31 WBC (4.5-11.0) X10^3/uL RBC (4.5-5.9) X10^6/uL Hgb (13.5-17.5) g/dL Hct (41-53) % MCV (80-100) fL MCH (26-34) PG MCHC (30-36) % RDW (11.6-14.8) % Plt Count (150-400) X10^3/uL Neut % (Auto) (50-75) % Lymph % (Auto) (25-40) % Griggs % (Auto) (3-14) % Eos % (Auto) (2-4) % Baso % (Auto) (0-2) % Neut # (Auto) (2269-0622) /uL Lymph # (Auto) (7665-0746) /uL Griggs # (Auto) (0-900) /uL Eos # (Auto) (0-450) /uL Baso # (Auto) (0-100) /uL RBC Morphology Hypochromasia Microcytosis PT (10.1-12.7) SECONDS INR (0.9-1.3) APTT (26.4-36.2) SECONDS Sodium (137-145) mmol/L Potassium (3.4-5.1) mmol/L Chloride (98-107) mmol/L Carbon Dioxide (22-32) mmol/L BUN (9-20) mg/dL Creatinine (0.66-1.25) mg/dL Estimated GFR (>60) mL/min BUN/Creatinine Ratio (6-22) Glucose (80-110) mg/dL Lactate (0.7-2.1) mmol/L Calcium (8.4-10.2) mg/dL Total Bilirubin (0.2-1.3) mg/dL AST (17-59) IU/L ALT (<50) IU/L Alkaline Phosphatase (38-126) U/L Troponin I (0.01-0.034) ng/mL Total Protein (6.3-8.2) g/dL Albumin (3.5-5.0) g/dL Globulin (1.7-4.1) g/dL Albumin/Globulin Ratio (1.0-2.8) Lipase (23-300) U/L Procalcitonin (<0.5) ng/mL Stl C. cayetanensis PCR Not detected (Not Detect) Stool Rotavirus (PCR) Not detected (Not Detect) Stool Adenovirus (PCR) Not detected (Not Detect) Stool Astrovirus (PCR) Not detected (Not Detect) Stool Cryptosporidium PCR Not detected (Not Detect) Stl E.coli Shiga Tox PCR Not detected (Not Detect) St Sh/Enteroin Ecoli PCR Not detected (Not Detect) Stool E coli O157 PCR Not Reportable Stl Enterotoxigenic E PCR Not detected (Not Detect) Stool EPEC (PCR) Not detected (Not Detect) Stl E. histolytica PCR Not detected (Not Detect) Stool Giardia Lamblia PCR Not detected (Not Detect) Stool Sapovirus (PCR) Not detected (Not Detect) Stl P. shigelloides PCR Not detected (Not Detect) St Y.enterocolitica PCR Not detected (Not Detect) Stool Vibrio (PCR) Not detected (Not Detect) Stl Vibrio cholerae PCR Not detected (Not Detect) Stl Enteroaggr Ecoli PCR Not detected (Not Detect) Stl Norovirus GI/GII PCR Not detected (Not Detect) Campylobacter (PCR) Not detected (Not Detect) C. difficile Tox (PCR) Not detected (Not Detect) SARS-CoV-2 (PCR) (Negative) Salmonella (PCR) Not detected (Not Detect) Blood Type Antibody Screen Imaging Data CT scan - abdomen/pelvis: Attestation: I personally reviewed and interpreted this imaging study as follows: Radiologist Impression: [address] [id number] Scan ReportSigned Patient: Aleksandar Bay [facility], [place]#: [id number]: 1950Acct:[id number]/Sex: 70 / MDate of Service: 07/02/20Loc: EDAccession Number: [id number] Procedure: CT abdomen pelvis w con Ordering Provider: Guera Prabhakar D.O. PROCEDURE: CT ABDOMEN PELVIS W CON INDICATIONS: anal cancer, anal mass TECHNIQUE: After the administration of intravenous contrast, 5 mm thick sections acquired from the diaphragm to the symphysis. 5 mm coronal and sagittal reformats were acquired. For radiation dose reduction, the following was used: automated exposure control, adjustment of mA and/or kV according to patient size. COMPARISON: [facility], CT, ABDOMEN/PELVIS WITH CONTRAST, 06/14/2008, 16:21. [facility], CT, CT ABDOMEN PELVIS W CON, 04/07/2020, 12:38. FINDINGS: Image quality: Excellent. ABDOMEN: Lung bases: Minimal atelectasis or scarring at the left lung base. No pleural effusion. Heart size is normal. Solid organs: Liver is normal in size and enhancement. Gallbladder is unremarkable. Biliary system is non dilated. Pancreas enhances normally. Spleen is normal in size and enhancement. No adrenal nodule. Left adrenal gland is surgically absent. Left kidney is surgically absent. No mass in the left nephrectomy bed. No hydronephrosis of the right kidney. Tiny nonobstructing right kidney stone. Peritoneum and bowel: Anal mass measures approximately 4.6 x 4.4 cm, (), previously 3.7 x 3.6 when remeasured in a similar fashion. There is increased hypodensity at the anterior margin with concern for invasion into the prostate gland, (5/64). No small bowel obstruction. Normal appendix. No free fluid or air. Nodes and vessels: No retroperitoneal or mesenteric adenopathy by size criteria. Aorta and inferior vena cava are normal in size. Miscellaneous: Small ventral abdominal wall hernia similar to the prior exam. PELVIS: Genitourinary: Portion of the urinary bladder is herniated into the right inguinal hernia. -Small left pelvic sidewall lymph node measuring at 0.8 cm, (), previously only faintly perceptible on 04/07/2020. -Right pelvic sidewall lymph node measuring 9 mm, (2/82), previously 5 mm. -Small presacral mesorectal lymph node measuring 5 mm, (2/82), previously 4 mm. -Right common iliac lymph node measuring at 0.7 cm, (2/67), previously 4 mm. Bones: No suspicious bony lesions. No vertebral body compression fractures. IMPRESSION: 1. Anal mass appears increased in size compared to March 2020. Concern for prostate gland invasion. -this could be further evaluated with anorectal MRI if clinically indicated. 2. Small pelvic lymph nodes, some of which are increased in size. These are concerning for metastatic disease. 3. No mass in the left nephrectomy bed. 4. Right inguinal hernia containing portions of the urinary bladder, unchanged. Small ventral abdominal hernia. Dictated by: Yandel River M.D. on 07/02/2020 at 12:17 Approved by: Yandel River M.D. on 07/02/2020 at 12:34 Chest x-ray: Attestation: I personally reviewed and interpreted this imaging study as follows: Radiologist Impression: [address] [id number] ReportSigned Patient: Aleksandar Bay [facility] [place]#: [id number]: 1950Acct:[id number]/Sex: 70 / MDate of Service: 07/02/20Loc: EDAccession Number: [id number] Procedure: XR chest 1V Ordering Provider: Guera Prabhakar D.O. PROCEDURE: XR CHEST 1V INDICATIONS: dizziness TECHNIQUE: One view of the chest was acquired. COMPARISON: [facility], CT, CT ANGIO CHEST PE PROTOCOL, 06/10/2020, 18:52. [facility], CR, XR CHEST 1V, 06/10/2020, 14:32. [facility], CR, XR CHEST 2V, 06/07/2020, 8:33. FINDINGS: Surgical changes and devices: Clips in the left neck. Lungs and pleura: Mild airspace opacity at the left lower lobe. Mild hazy opacity at the right lower lobe. Prominent lung volumes. Emphysematous change. No pleural effusions or pneumothorax. Mediastinum: Mediastinal contours appear unchanged. Elevation of the left hemidiaphragm. Heart size is within normal limits. Bones and chest wall: No suspicious bony lesions. Marked right shoulder DJD. Overlying soft tissues appear unremarkable. IMPRESSION: No significant interval change. Mild airspace opacity most pronounced at the left lung base. Favor atelectasis over pneumonia. Dictated by: Yandel River M.D. on 07/02/2020 at 11:24 Approved by: Yandel River M.D. on 07/02/2020 at 11:26 ECG Data Attestation: I personally reviewed and interpreted this ECG as follows: Prior ECG tracings: available for review Interpretation: Sinus rhythm rate of 65, P are 156, QRS of [address] elevation appreciated. Prior EKG appears similar from 2020 EKGs. EKG 2. Shows sinus rhythm rate of 66, WI 170, QRS 88 QTC 444. Patient does not have any ST elevation, no depression appreciated. EKG appears similar Q-wave in lead 3 which is seen in the 1st EKG as well. MDM Narrative Medical decision making narrative: This is a 70-year-old male who comes to emergency department with dizziness and low blood pressure at home. He arrived via private auto. Patient has had chronic diarrhea, he has known anal cancer he supposed to start chemotherapy in the next week. He has had GI bleeds requiring cauterization at [facility] in the last 2 months. And he required 6 units of blood. Patient states he has not noted any bright red blood. No clear infectious cause is found today, his hemoglobin appears stable and he states it was 10 post transfusion which it is at today as well. His Hemoccult is negative he has not noted any melena or bright red blood on his stools. Patient does not have any clear cardiac cause. His troponin EKGs are negative x2. Patient was started on metoprolol for CHF and he has continued this this may be exacerbating his symptoms but may not be the sole reason for his hypotension. He was asked to stop this medication. He is requesting to return home and does not wish to be observed overnight. CT findings with the increased size of the anal mass. He has also noted that he has a right inguinal hernia containing portions of his bladder which she was already aware of and states related to a mesh that sort of pulling that area into the hernia. Patient passed ambulation trial without significant issues. He does not wish to wait for his stool culture at this time. He does have a remote history of C diff 3-4 years prior. Stool PCR negative, E.Coli 0157 not reportable. Discharge Plan Departure Patient Disposition: Home Clinical Impression: Dizziness, Low blood pressure Instructions: DI for Hypotension Activity Restrictions/Additional Instructions: Follow-up with your physician in the next 24-48 hours for recheck. I would recommend holding your metoprolol until you follow-up with your physician this may have contributed to your low blood pressure but may not be the only reason that you had low blood pressure today. Blood cultures are still pending. Return to the emergency department for fevers, altered mental status, passing out, recurrent dizziness, new chest pain, shortness of breath, black or bloody stools, no abdominal pain or any other new or concerning symptoms. Prescriptions: No Action fluticasone propionate 50 mcg/actuation spray,suspension 1 spray Intranasal BID PRN (Reason: Congestion) Qty: 18.2 RF: 1 methyl B12 1 tab 1,000 mcg PO WEEKLY RF: 0 prednisone 5 mg tablet 2.5 mg PO BID RF: 0 famciclovir 250 mg tablet 250 mg PO BID PRN (Reason: herpes zoster) Qty: 30 RF: 1 metoprolol succinate 25 mg tablet extended release 24 hr 12.5 mg PO BID Qty: 90 RF: 0 cholecalciferol (vitamin D3) 2,000 unit capsule 2,000 unit PO WEEKLY RF: 0 Probiotic 20 billion cell Capsule 1 cap PO DAILY RF: 0 turmeric 300 mg 600 mg PO DAILY RF: 0 Iron Complex 27 mg 1 tab PO WEEKLY RF: 0 levothyroxine [Euthyrox] 88 mcg tablet 88 mcg PO DAILY RF: 0 L-Glutamine 500 mg capsule 500 mg PO DAILY RF: 0 econazole 1 % cream 1 applictn TOP BID PRN (Reason: Rash) RF: 0 mesalamine [Lialda] 1.2 gram Tablet,Delayed Release (Dr/Ec) 1.2 g PO BID RF: 0 diazepam 5 mg tablet 5 mg PO DAILY RF: 0 ascorbic acid (vitamin C) 500 mg Tablet 500 mg PO WEEKLY RF: 0 geriatric [id number] Tablet 1 tab PO WEEKLY RF: 0 oxycodone-acetaminophen 5-325 mg Tablet 1 tab PO Q4HR PRN (Reason: Pain, Moderate (4-6)) Qty: 30 RF: 0 Referrals: Monica Collins DO [Primary Care Provider] -
[2020-07-02] MEDS: ONDANSETRON 4 MG/2 ML INJ IV (12:15)
[2020-07-02] MEDS: SODIUM CHLORIDE 0.9% 1,000 ML 1000 ML IV (12:16)
[2020-07-02 12:19] LABS: Prothrombin Time 11.8 SECONDS (10.1-12.7)
[2020-07-02 12:21] LABS: PTT Partial Thromboplastin Tim 31 SECONDS (26.4-36.2)
[2020-07-02 12:23] LABS: Alanine Aminotransferase 19 IU/L (<50); Albumin 3.5 g/dL (3.5-5.0); Alkaline Phosphatase 76 U/L (38-126); Aspartate Aminotransferase 26 IU/L (17-59); Bilirubin Total 0.3 mg/dL (0.2-1.3); Blood Urea Nitrogen 15 mg/dL (9-20); Carbon Dioxide 33 mmol/L (22-32); Chloride 101 mmol/L (98-107); Estimated Glomerular Filt Rate 57.1 mL/min (>60); Globulin 3.5 g/dL (1.7-4.1); Glucose 91 mg/dL (80-110); HEMOLYSIS < 15 (0-50); Lactate (Lactic Acid) 1.2 mmol/L (0.7-2.1); Potassium 3.5 mmol/L (3.4-5.1); Sodium 138 mmol/L (137-145)
[2020-07-02 12:27] LABS: Add Manual Diff / Slide Review NO; Basophils Absolute Auto 100 /uL (0-100); Basophils Percent Auto 0.9 % (0-2); Eosinophils Absolute Auto 100 /uL (0-450); Eosinophils Percent Auto 1.2 % (2-4); Hematocrit 33.2 % (41-53); Hemoglobin 10.6 g/dL (13.5-17.5); Lymphocytes Absolute Auto 1000 /uL (1100-4500); Lymphocytes Percent Auto 14.2 % (25-40); Mean Corpuscular Hemoglobin 26.7 PG (26-34); Mean Corpuscular Volume 83.3 fL (80-100); Monocytes Absolute Auto 500 /uL (0-900); Monocytes Percent Auto 6.9 % (3-14); Neutrophils Absolute Auto 5600 /uL (1500-7000); Neutrophils Percent Auto 76.8 % (50-75); Platelet Count 244 X10^3/uL (150-400); Red Blood Cell Count 3.99 X10^6/uL (4.5-5.9); Red Cell Distribution Width 21.6 % (11.6-14.8); White Blood Cell Count 7.3 X10^3/uL (4.5-11.0)
[2020-07-02 12:35] LABS: Troponin I < 0.012 ng/mL (0.01-0.034)
[2020-07-02 12:46] LABS: Hypochromasia 1+; Microcytosis 1+
[2020-07-02 13:47] LABS: Lipase 46 U/L (23-300)
[2020-07-02 14:06] LABS: COVID19 -Nasal RAPID Negative (Negative)
[2020-07-02 14:12] LABS: Procalcitonin < 0.05 ng/mL (<0.5)
[2020-07-02 16:21] LABS: Troponin I < 0.012 ng/mL (0.01-0.034)
[2020-07-02 19:03] LABS: Adenovirus F 40/41 Not Detected (Not Detect); Astrovirus Not Detected (Not Detect); Campylobacter Not Detected (Not Detect); Clostridium difficile toxin AB Not Detected (Not Detect); Cryptosporidium Not Detected (Not Detect); Cyclospora cayetanensis Not Detected (Not Detect); Entamoeba histolytica Not Detected (Not Detect); Enteroaggregative E.coli Not Detected (Not Detect); Enteropathogenic E.coli Not Detected (Not Detect); Enterotoxigenic E.coli It/st Not Detected (Not Detect); Giardia lamblia Not Detected (Not Detect); Norovirus GI/GII Not Detected (Not Detect); Plesiomonsa shigelloides Not Detected (Not Detect); Rotavirus A Not Detected (Not Detect); Salmonella Not Detected (Not Detect); Sapovirus Not Detected (Not Detect); Shiga-like toxin-prod E.coli Not Detected (Not Detect); Shigella/Enteroinvasive E.coli Not Detected (Not Detect); Vibrio Not Detected (Not Detect); Vibrio cholerae Not Detected (Not Detect); Yersinia enterocolitica Not Detected (Not Detect)
[2020-07-03 13:39] LABS: Acinetobacter baumannii Not Detected (Not Detect); Candida albicans Not Detected (Not Detect); Candida glabrata Not Detected (Not Detect); Candida krusei Not Detected (Not Detect); Candida parapsilosis Not Detected (Not Detect); Candida tropicalis Not Detected (Not Detect); E. coli Not Detected (Not Detect); Enterobacter cloacae complex Not Detected (Not Detect); Enterobacteriaceae species Not Detected (Not Detect); Enterococcus species Not Detected (Not Detect); Haemophilus influenzae Not Detected (Not Detect); Listeria monocytogenes Not Detected (Not Detect); Methicillin-resistant gene Detected (Not Detect); Neisseria meningitidis Not Detected (Not Detect); Proteus species Not Detected (Not Detect); Pseudomonas aeruginosa Not Detected (Not Detect); Serratia marcescens Not Detected (Not Detect); Streptococcus agalactiae (Gr B Not Detected (Not Detect); Streptococcus pneumonia Not Detected (Not Detect); Streptococcus pyogenes (Gr A) Not Detected (Not Detect); Streptococcus species Not Detected (Not Detect)
[2020-07-03 13:41] LABS: Staphylococcus species Detected (Not Detect)
== END 2020-07-02 19:05 | disposition home or self-care (01) ==
PROVIDERS: Emergency Provider Emergency Medicine; PCP Family Medicine
DX: I95.9 Hypotension, unspecified (principal); R42 Dizziness and giddiness; R11.2 Nausea with vomiting, unspecified; K52.9 Noninfective gastroenteritis and colitis, unspecified; E66.9 Obesity, unspecified; Z68.34 Body mass index [BMI] 34.0-34.9, adult; Z20.822 Contact with and (suspected) exposure to COVID-19; C21.0 Malignant neoplasm of anus, unspecified
CPT/HCPCS: 36415; 71045; 74177; 80053; 83605; 83690; 84145; 84484; 85025; 85610; 85730; 86850; 86900; 86901; 87040; 87150; 87205; 87507; 87635; 93005; 93010; 96361; 96374; 99284; C9803; J2405; Q9967

== ENCOUNTER 2020-08-08 09:59 | Emergency (ER) | payer MEDICARE, SELFPAY ==
[2020-06-04 16:38] VITALS: BMI 35.9
[2020-08-08] VITALS (9 sets, daily range): BP systolic 114–141; BP diastolic 69–87; PULSE 56–69; RESP 20; TEMP 36.6; O2SAT 98–100; BMI 30.7
--- NOTE | 2020-08-08 10:12 | DI.RAD.S_ITS ---
PROCEDURE: XR CHEST 1V INDICATIONS: suspected sepsis TECHNIQUE: One view of the chest was acquired. COMPARISON: [facility], CT, CT ANGIO CHEST PE PROTOCOL, 06/10/2020, 18:52. [facility], CR, XR CHEST 1V, 06/10/2020, 14:32. [facility], CR, XR CHEST 2V, 06/07/2020, 8:33. [facility], CR, XR CHEST 1V, 07/02/2020, 12:12. FINDINGS: Surgical changes and devices: Left lower neck clips are seen. Lungs and pleura: Lungs are clear. No pleural effusions or pneumothorax. Elevation of the left hemidiaphragm is seen. Mediastinum: Mediastinal contours appear normal. Heart size is normal. Bones and chest wall: No suspicious bony lesions. Age-appropriate bony degenerative changes are seen. Overlying soft tissues appear unremarkable. IMPRESSION: No focal infiltrates are seen. Elevation of the left hemidiaphragm. Dictated by: Rip Agarwal M.D. on 08/08/2020 at 9:30 Approved by: Rip Agarwal M.D. on 08/08/2020 at 9:32
--- NOTE | 2020-08-08 10:41 | ED.GENADULT ---
HPI - General Adult General Chief complaint: Nausea/Vomiting/Diarrhea Stated complaint: dehydrated for a month/finished chem/rad last fri Time Seen by Provider: 08/08/20 10:41 Source: patient and old records reviewed Mode of arrival: Ambulatory Limitations: no limitations History of Present Illness HPI narrative: This is a 70-year-old male who comes emergency department with complaint of dehydration. Patient has been receiving chemo and radiation and completed his treatment last Friday. He has been here before for similar symptoms and states he thinks he is just dehydrated. He initially refused any other intervention but ultimately agreed to have some basic labs as he has required magnesium replacement in the past. He denies fevers, no chills, no cold cough or congestion. He denies any chest pain or pressure, no shortness of breath. He denies any nausea currently. He does complain of anorexia and has had a 60 lb weight loss since March of 2020. He states he has been having chronic diarrhea with no melena or hematochezia. He has had normal urine output he sometimes has some hesitancy but has not appreciated any discoloration, decreased output, frequency dysuria or other changes. He states that he is ambulatory. He has been drinking but has had difficulty finding solids that are interesting or agreeable and do not worsen his diarrhea. Related Data Home Medications Medication Instructions Recorded Confirmed cholecalciferol (vitamin D3) 50 2,000 unit PO WEEKLY 04/23/18 06/04/20 mcg (2,000 unit) capsule Probiotic 1 cap PO DAILY 07/23/18 06/04/20 turmeric 600 mg PO DAILY 07/23/18 06/04/20 Iron Complex 1 tab PO WEEKLY 09/10/18 06/04/20 mesalamine [Lialda] 1.2 g PO BID 09/30/18 06/04/20 methyl B12 1,000 mcg PO WEEKLY 02/02/20 06/04/20 L-Glutamine 500 mg PO DAILY 03/24/20 06/04/20 econazole 1 applictn TOP BID PRN 03/24/20 06/04/20 levothyroxine [Euthyrox] 88 mcg PO DAILY 03/24/20 06/04/20 prednisone 5 mg tablet 2.5 mg PO BID 04/18/20 06/04/20 ascorbic acid (vitamin C) 500 mg PO WEEKLY 06/04/20 06/04/20 diazepam 5 mg PO DAILY 06/04/20 06/04/20 geriatric [id number] 1 tab PO WEEKLY 06/04/20 06/04/20 Previous Rx's Medication Instructions Recorded fluticasone propionate 50 1 spray INTRANASAL BID PRN #18.2 ml 10/04/19 mcg/actuation nasal spray,suspension famciclovir 250 mg tablet 250 mg PO BID PRN #30 tab 04/20/20 oxycodone-acetaminophen 1 tab PO Q4HR PRN #30 tab 06/11/20 metoprolol succinate 25 mg 12.5 mg PO BID #90 tab 06/26/20 tablet,extended release 24 hr Allergies Allergy/AdvReac Type Severity Reaction Status Date / Time cefazolin [CEFAZOLIN] Allergy Severe rash Verified 08/08/20 11:11 levofloxacin [From LEVAQUIN] Allergy Mild Verified 08/08/20 11:11 morphine [MORPHINE] Allergy Mild STOPPED Verified 08/08/20 11:11 BREATHING. Review of Systems Review of Systems ROS Unobtainable: All systems reviewed & are unremarkable except as noted in HPI and below Patient History Medical History Acquired hypothyroidism Acute dehydration Anal cancer Anal squamous cell carcinoma (~02/2020) Anemia (10/13/13) C. 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 Syncope Ulcerative colitis Ulcerative colitis Ventral hernia without obstruction or gangrene (08/07/16) Surgical History Fractures History of neck surgery (~2006) History of nephrectomy (~08/2015) History of third molar tooth extraction History of tonsillectomy (~1955) History of tonsillectomy (~1957) History of tonsillectomy (~1960) Status post colonoscopy Family History Mother Congestive heart failure Father Liver failure Alzheimer's dementia Social History household members: spouse Smoking Status: Former smoker alcohol intake: never Smoking Status: Former smoker alcohol intake frequency: holidays/special occasions only Alcohol type: other Substance Use Type: does not use Exam Initial Vital Signs Initial Vital Signs: Vital Signs Temperature 97.8 F 08/08/20 10:05 Pulse Rate 66 08/08/20 10:05 Respiratory Rate 20 08/08/20 10:05 Blood Pressure 141/87 H 08/08/20 10:05 Pulse Oximetry 99 08/08/20 10:05 GENERAL: Alert and oriented x three, elderly appearing male in mild distress. HEENT: Head normocephalic, atraumatic, EOMI, pupils reactive, face symmetric, mildly dry mucous membranes NECK: Supple, full range of motion CARDIOVASCULAR: Regular rate and rhythm without murmurs, rubs or gallops. RESPIRATORY: Breath sounds equal bilaterally, no wheezes rales or rhonchi. ABDOMEN: Soft, nontender. Normoactive bowel sounds all 4 quadrants. No guarding or rebound, rigidity, no mass, mildly distended. : No CVA tenderness EXTREMITIES: Normal range of motion, no edema bilateral lower extremities. Neurovascularly intact NEUROLOGICAL: Cranial nerves II through XII grossly intact. Moving all extremities SKIN: Warm, dry, no petechiae, no rashes or lesions. Course Orders Ordered: ED Orders 08/08/20 10:12 XR chest 1V Stat RT Consult Eval and Treat Now 08/08/20 10:55 Complete Blood Count AUTO DIFF Stat Comprehensive Metabolic Panel Stat Lactate (Lactic Acid) Stat Lipase Stat Magnesium Stat NT-proBNP (BNP-Adult 18+) Stat Partial Thromboplastin Time Stat Procalcitonin Stat Prothrombin Time INR Stat Troponin & CK Cardiac Panel Stat Discontinued Medications Sodium Chloride (Normal Saline 0.9%) 1,000 mls @ 1,000 mls/hr IV BOLUS ONE Stop: 08/08/20 11:11 Last Infusion: 08/08/20 12:05 Dose: 0 mls/hr Documented by: Admin: 08/08/20 11:01 Dose: 1,000 mls/hr Documented by: ESCOBAR Reevaluation(s) Reevaluation #1: Patient is feeling better and plans to return home. We did review his lab safe use to have acute kidney injury with elevation is creatinine. Patient does not wish to be admitted. He will follow-up in the next 24-48 hours to recheck his renal function and continue to try to orally hydrate at home. Time: 12:49 Vital Signs Vital signs: Vital Signs - 8 hr 08/08/20 11:00 08/08/20 11:03 08/08/20 11:20 Pulse Rate 62 62 58 L Blood Pressure 130/73 131/73 Pulse Oximetry 100 98 100 08/08/20 11:30 08/08/20 12:00 Pulse Rate 56 L 59 L Blood Pressure 126/69 132/70 Pulse Oximetry 98 99 Medical Decision Making Lab Data Lab results reviewed: Yes I reviewed the patient's lab results. Result diagrams: 08/08/20 10:55 08/08/20 10:55 Labs: Lab Results 08/08/20 08/08/20 08/08/20 Range/Units 10:55 10:55 10:55 WBC 5.0 (4.5-11.0) X10^3/uL RBC 4.28 L (4.5-5.9) X10^6/uL Hgb 11.7 L (13.5-17.5) g/dL Hct 35.7 L (41-53) % MCV 83.3 (80-100) fL MCH 27.3 (26-34) PG MCHC 32.8 (30-36) % RDW 21.9 H (11.6-14.8) % Plt Count 228 (150-400) X10^3/uL Neut % (Auto) 80.1 H (50-75) % Lymph % (Auto) 9.0 L (25-40) % [place] % (Auto) 9.7 (3-14) % Eos % (Auto) 0.9 L (2-4) % Baso % (Auto) 0.3 (0-2) % Neut # (Auto) 4000 (7721-6173) /uL Lymph # (Auto) 500 L (2045-2385) /uL [place] # (Auto) 500 (0-900) /uL Eos # (Auto) 0 (0-450) /uL Baso # (Auto) 0 (0-100) /uL Plt Morphology Comment RBC Morphology See below Anisocytosis 2+ H PT 13.2 H (10.1-12.7) SECONDS INR 1.1 (0.9-1.3) APTT 29 (26.4-36.2) SECONDS Sodium 130 L (137-145) mmol/L Potassium 3.4 (3.4-5.1) mmol/L Chloride 95 L (98-107) mmol/L Carbon Dioxide 27 (22-32) mmol/L BUN 21 H (9-20) mg/dL Creatinine 1.88 H (0.66-1.25) mg/dL Estimated GFR 35.7 L (>60) mL/min BUN/Creatinine Ratio 11.2 (6-22) Glucose 94 (80-110) mg/dL Lactate (0.7-2.1) mmol/L Calcium 9.4 (8.4-10.2) mg/dL Magnesium (1.6-2.3) mg/dL Total Bilirubin 0.5 (0.2-1.3) mg/dL AST 32 (17-59) IU/L ALT 29 (<50) IU/L Alkaline Phosphatase 86 (38-126) U/L Total Creatine Kinase 32 L (55-170) U/L CK-MB (CK-2) TNP CK-MB (CK-2) Rel Index TNP Troponin I 0.016 (0.01-0.034) ng/mL NT-Pro-B Natriuret Pep 634 H (<125) pg/mL Total Protein 7.3 (6.3-8.2) g/dL Albumin 3.6 (3.5-5.0) g/dL Globulin 3.7 (1.7-4.1) g/dL Albumin/Globulin Ratio 1.0 (1.0-2.8) Lipase 42 (23-300) U/L Procalcitonin 0.13 (<0.5) ng/mL 08/08/20 08/08/20 08/08/20 Range/Units 10:55 10:55 10:55 WBC (4.5-11.0) X10^3/uL RBC (4.5-5.9) X10^6/uL Hgb (13.5-17.5) g/dL Hct (41-53) % MCV (80-100) fL MCH (26-34) PG MCHC (30-36) % RDW (11.6-14.8) % Plt Count (150-400) X10^3/uL Neut % (Auto) (50-75) % Lymph % (Auto) (25-40) % [place] % (Auto) (3-14) % Eos % (Auto) (2-4) % Baso % (Auto) (0-2) % Neut # (Auto) (5837-4764) /uL Lymph # (Auto) (3005-4124) /uL [place] # (Auto) (0-900) /uL Eos # (Auto) (0-450) /uL Baso # (Auto) (0-100) /uL Plt Morphology Comment RBC Morphology Anisocytosis PT (10.1-12.7) SECONDS INR (0.9-1.3) APTT (26.4-36.2) SECONDS Sodium (137-145) mmol/L Potassium (3.4-5.1) mmol/L Chloride (98-107) mmol/L Carbon Dioxide (22-32) mmol/L BUN (9-20) mg/dL Creatinine (0.66-1.25) mg/dL Estimated GFR (>60) mL/min BUN/Creatinine Ratio (6-22) Glucose (80-110) mg/dL Lactate 1.1 (0.7-2.1) mmol/L Calcium (8.4-10.2) mg/dL Magnesium 1.6 (1.6-2.3) mg/dL Total Bilirubin (0.2-1.3) mg/dL AST (17-59) IU/L ALT (<50) IU/L Alkaline Phosphatase (38-126) U/L Total Creatine Kinase Cancelled (55-170) U/L CK-MB (CK-2) Cancelled CK-MB (CK-2) Rel Index Cancelled Troponin I Cancelled (0.01-0.034) ng/mL NT-Pro-B Natriuret Pep Cancelled (<125) pg/mL Total Protein (6.3-8.2) g/dL Albumin (3.5-5.0) g/dL Globulin (1.7-4.1) g/dL Albumin/Globulin Ratio (1.0-2.8) Lipase (23-300) U/L Procalcitonin (<0.5) ng/mL Urine Dip Bedside Urine Glucose Negative Bedside Urine Bilirubin - Negative Bedside Urine Ketone +/- 5 Urine Specific [place] 1.020 Bedside Urine Occult Blood ++ Bedside Urine pH 6.0 Bedside Urine Protein +/- 15 Bedside Urine Urobilinogen - Negative Bedside Urine Nitrite - Negative Bedside Urine Leukocytes - Negative Esterase Point of care testing: Urine Dip Bedside Urine Glucose Negative Bedside Urine Bilirubin - Negative Bedside Urine Ketone +/- 5 Urine Specific [place] 1.020 Bedside Urine Occult Blood ++ Bedside Urine pH 6.0 Bedside Urine Protein +/- 15 Bedside Urine Urobilinogen - Negative Bedside Urine Nitrite - Negative Bedside Urine Leukocytes - Negative Esterase Imaging Data Chest x-ray: Radiologist's Impression: [address] [id number] ReportSigned Patient: Aleksandar Bay [facility]#: [id number]: 1950Acct:[id number]/Sex: 70 / MDate of Service: 08/08/20Loc: EDAccession Number: [id number] Procedure: XR chest 1V Ordering Provider: Guera Prabhakar D.O. PROCEDURE: XR CHEST 1V INDICATIONS: suspected sepsis TECHNIQUE: One view of the chest was acquired. COMPARISON: [facility], CT, CT ANGIO CHEST PE PROTOCOL, 06/10/2020, 18:52. [facility], CR, XR CHEST 1V, 06/10/2020, 14:32. [facility], CR, XR CHEST 2V, 06/07/2020, 8:33. [facility], CR, XR CHEST 1V, 07/02/2020, 12:12. FINDINGS: Surgical changes and devices: Left lower neck clips are seen. Lungs and pleura: Lungs are clear. No pleural effusions or pneumothorax. Elevation of the left hemidiaphragm is seen. Mediastinum: Mediastinal contours appear normal. Heart size is normal. Bones and chest wall: No suspicious bony lesions. Age-appropriate bony degenerative changes are seen. Overlying soft tissues appear unremarkable. IMPRESSION: No focal infiltrates are seen. Elevation of the left hemidiaphragm. Dictated by: Rip Agarwal M.D. on 08/08/2020 at 9:30 Approved by: Rip Agarwal M.D. on 08/08/2020 at 9:32 [facility] Narrative Medical decision making narrative: This is a 70-year-old male who comes with complaint of dehydration. He has been here multiple times for somewhat similar symptoms. Patient has not had any syncope no chest pain or shortness of breath. He defers several portions of workup but is agreeable to lab work and fluids. Discussed with patient would like to repeat his labs as he has required magnesium supplementation in the past. Patient's labs do show an elevation his creatinine from his normal baseline. His hemoglobin appears stable with no major electrolyte abnormalities. Patient does not wish to be admitted for acute kidney injury, and prefers to follow-up outpatient. Received fluids here in the department he does feel improved and plan to continue with oral hydration. We did discuss he can follow up with his oncologist and may benefit from a midline and frequent outpatient IV fluids if they feel this is appropriate. Discharge Plan Departure Patient Disposition: Home Clinical Impression: Dehydration, Creatinine elevation Instructions: DI for Dehydration -- Adult Activity Restrictions/Additional Instructions: Follow up with your physician for recheck, your renal function is elevated today and is likely secondary to dehydration. You will need to have your renal function rechecked in the next 24-48 hours. You may continue your home medications as prescribed. Continue to try alternative options to increase your intake of solid foods and continue to orally hydrate as best you can. Return to the ER for fevers, lightheadedness that is worsening/passing-out, new chest pain, shortness of breath, persistent vomiting, black or bloody stools, dark urine or decrease in urine output or other new or concerning symptoms. Prescriptions: No Action fluticasone propionate 50 mcg/actuation spray,suspension 1 spray Intranasal BID PRN (Reason: Congestion) Qty: 18.2 RF: 1 methyl B12 1 tab 1,000 mcg PO WEEKLY RF: 0 prednisone 5 mg tablet 2.5 mg PO BID RF: 0 famciclovir 250 mg tablet 250 mg PO BID PRN (Reason: herpes zoster) Qty: 30 RF: 1 metoprolol succinate 25 mg tablet extended release 24 hr 12.5 mg PO BID Qty: 90 RF: 0 Hold Instructions: low blood pressure cholecalciferol (vitamin D3) 2,000 unit capsule 2,000 unit PO WEEKLY RF: 0 Probiotic 20 billion cell Capsule 1 cap PO DAILY RF: 0 turmeric 300 mg 600 mg PO DAILY RF: 0 Iron Complex 27 mg 1 tab PO WEEKLY RF: 0 levothyroxine [Euthyrox] 88 mcg tablet 88 mcg PO DAILY RF: 0 L-Glutamine 500 mg capsule 500 mg PO DAILY RF: 0 econazole 1 % cream 1 applictn TOP BID PRN (Reason: Rash) RF: 0 mesalamine [Lialda] 1.2 gram Tablet,Delayed Release (Dr/Ec) 1.2 g PO BID RF: 0 diazepam 5 mg tablet 5 mg PO DAILY RF: 0 ascorbic acid (vitamin C) 500 mg Tablet 500 mg PO WEEKLY RF: 0 geriatric [id number]-[id number] Tablet 1 tab PO WEEKLY RF: 0 oxycodone-acetaminophen 5-325 mg Tablet 1 tab PO Q4HR PRN (Reason: Pain, Moderate (4-6)) Qty: 30 RF: 0 Referrals: Monica Collins DO [Primary Care Provider] -
[2020-08-08] MEDS: SODIUM CHLORIDE 0.9% 1,000 ML 1000 ML IV (11:01)
[2020-08-08 11:05] LABS: Add Manual Diff / Slide Review NO; Basophils Absolute Auto 0 /uL (0-100); Basophils Percent Auto 0.3 % (0-2); Eosinophils Absolute Auto 0 /uL (0-450); Eosinophils Percent Auto 0.9 % (2-4); Hematocrit 35.7 % (41-53); Hemoglobin 11.7 g/dL (13.5-17.5); Lymphocytes Absolute Auto 500 /uL (1100-4500); Mean Corpuscular HGB Conc 32.8 % (30-36); Mean Corpuscular Hemoglobin 27.3 PG (26-34); Mean Corpuscular Volume 83.3 fL (80-100); Monocytes Absolute Auto 500 /uL (0-900); Monocytes Percent Auto 9.7 % (3-14); Neutrophils Absolute Auto 4000 /uL (1500-7000); Neutrophils Percent Auto 80.1 % (50-75); Platelet Count 228 X10^3/uL (150-400); Red Blood Cell Count 4.28 X10^6/uL (4.5-5.9); Red Cell Distribution Width 21.9 % (11.6-14.8)
[2020-08-08 11:15] LABS: INR 1.1 (0.9-1.3); Prothrombin Time 13.2 SECONDS (10.1-12.7)
[2020-08-08 11:18] LABS: PTT Partial Thromboplastin Tim 29 SECONDS (26.4-36.2)
[2020-08-08 11:20] LABS: Alanine Aminotransferase 29 IU/L (<50); Albumin 3.6 g/dL (3.5-5.0); Alkaline Phosphatase 86 U/L (38-126); Aspartate Aminotransferase 32 IU/L (17-59); BUN Creatinine Ratio 11.2 (6-22); Bilirubin Total 0.5 mg/dL (0.2-1.3); Blood Urea Nitrogen 21 mg/dL (9-20); Calcium 9.4 mg/dL (8.4-10.2); Carbon Dioxide 27 mmol/L (22-32); Chloride 95 mmol/L (98-107); Creatine Kinase 32 U/L (55-170); Estimated Glomerular Filt Rate 35.7 mL/min (>60); Globulin 3.7 g/dL (1.7-4.1); Glucose 94 mg/dL (80-110); HEMOLYSIS < 15 (0-50); Lactate (Lactic Acid) 1.1 mmol/L (0.7-2.1); Lipase 42 U/L (23-300); Potassium 3.4 mmol/L (3.4-5.1); Sodium 130 mmol/L (137-145); Total Protein 7.3 g/dL (6.3-8.2)
[2020-08-08 11:32] LABS: NT-proBNP (BNP-Adult 18+) 634 pg/mL (<125); Troponin I 0.016 ng/mL (0.01-0.034)
[2020-08-08 11:36] LABS: Procalcitonin 0.13 ng/mL (<0.5)
[2020-08-08 11:55] LABS: Anisocytosis 2+
[2020-08-08 12:07] LABS: Magnesium 1.6 mg/dL (1.6-2.3)
== END 2020-08-08 12:58 | disposition home or self-care (01) ==
PROVIDERS: Emergency Provider Emergency Medicine; PCP Family Medicine
DX: E86.0 Dehydration (principal); R79.89 Other specified abnormal findings of blood chemistry; R63.0 Anorexia; R19.7 Diarrhea, unspecified; C21.0 Malignant neoplasm of anus, unspecified
CPT/HCPCS: 36415; 71045; 80053; 81003; 82550; 83605; 83690; 83735; 83880; 84145; 84484; 85025; 85610; 85730; 96360; 99281; 99284

== ENCOUNTER 2020-08-15 14:56 | Inpatient (IN) | payer MEDICARE, SELFPAY ==
[2020-08-15] VITALS (15 sets, daily range): BP systolic 94–167; BP diastolic 60–81; PULSE 57–107; RESP 11–27; TEMP 35.7–36.5; O2SAT 93–99; BMI 35.9; BMI 30.7
--- NOTE | 2020-08-15 16:22 | ED.RECABL ---
HPI - Recheck/Abnormal Lab/Rx General Chief Complaint: Recheck/Abnormal Lab/Rx Stated Complaint: inreased weakness, abn labs Time Seen by Provider: 08/15/20 16:17 Source: patient Mode of arrival: Wheelchair Limitations: no limitations History of Present Illness HPI narrative: Patient is a 70-year-old male currently being treated for anal cancer presenting with weakness and diarrhea. He has had un known amounts of liquid watery diarrhea. He went today for an infusion oncology had some blood work done he was found to be slightly hypokalemic with a potassium of 3.1 and slightly hypo magnesium 1.2. Overall complaining of severe stomach cramping diarrhea and weakness. He is having some dizziness and lightheadedness when he stands. He overall just does not feel well. MD complaint: abnormal lab Related Data Home Medications Medication Instructions Recorded Confirmed cholecalciferol (vitamin D3) 50 2,000 unit PO WEEKLY 04/23/18 08/09/20 mcg (2,000 unit) capsule Probiotic 1 cap PO DAILY 07/23/18 08/09/20 turmeric 600 mg PO DAILY 07/23/18 08/09/20 Iron Complex 1 tab PO WEEKLY 09/10/18 08/09/20 mesalamine [Lialda] 1.2 g PO BID 09/30/18 08/09/20 methyl B12 1,000 mcg PO WEEKLY 02/02/20 08/09/20 L-Glutamine 500 mg PO DAILY 03/24/20 08/09/20 econazole 1 applictn TOP BID PRN 03/24/20 08/09/20 levothyroxine [Euthyrox] 88 mcg PO DAILY 03/24/20 08/09/20 prednisone 5 mg tablet 2.5 mg PO BID 04/18/20 08/09/20 ascorbic acid (vitamin C) 500 mg PO WEEKLY 06/04/20 08/09/20 diazepam 5 mg PO DAILY 06/04/20 08/09/20 geriatric [id number] 1 tab PO WEEKLY 06/04/20 08/09/20 ondansetron 8 mg disintegrating 8 mg PO Q12H 08/09/20 08/09/20 tablet prochlorperazine maleate 10 mg 10 mg PO Q6H PRN 08/09/20 08/09/20 tablet Previous Rx's Medication Instructions Recorded fluticasone propionate 50 1 spray INTRANASAL BID PRN #18.2 ml 10/04/19 mcg/actuation nasal spray,suspension oxycodone-acetaminophen 1 tab PO Q4HR PRN #30 tab 06/11/20 famciclovir 250 mg tablet 250 mg PO BID PRN #30 tab 08/11/20 Allergies Allergy/AdvReac Type Severity Reaction Status Date / Time cefazolin [CEFAZOLIN] Allergy Severe rash Verified 08/09/20 10:42 levofloxacin [From LEVAQUIN] Allergy Mild Verified 08/09/20 10:42 morphine [MORPHINE] Allergy Mild STOPPED Verified 08/09/20 10:42 BREATHING. Review of Systems Review of Systems ROS Unobtainable: All systems reviewed & are unremarkable except as noted in HPI and below Constitutional Constitutional: Reports fatigue, Denies frequent falls and Reports poor appetite ENT Ears, Nose, Mouth, and Throat: Denies dizziness Cardiovascular Cardiovascular: Denies chest pain, Denies irregular heart rhythm, Reports lightheadedness, Denies palpitations, Denies dyspnea, Denies dyspnea on exertion and Denies orthopnea Respiratory Respiratory: Denies cough, Denies dyspnea, Denies dyspnea on exertion and Denies wheezing Gastrointestinal Gastrointestinal: Reports as per HPI and Reports diarrhea Musculoskeletal Musculoskeletal: Denies myalgias, Denies myalgias and Denies numbness Integumentary/Breasts Skin/Breast: Denies pruritus, Denies erythema, Denies rash and Denies wounds Neurologic Neurologic: Denies behavioral changes, Denies confusion, Denies dizziness, Denies frequent falls and Denies numbness Psychiatric Psychiatric: Denies behavioral changes and Denies confusion Endocrine Endocrine: Reports fatigue and Denies palpitations Allergic/Immunologic Allergic/Immunologic: Denies wheezing Patient History Medical History Acquired hypothyroidism Acute dehydration Anal cancer Anal squamous cell carcinoma (~02/2020) Anemia (10/13/13) Bright red rectal bleeding C. 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 Syncope Ulcerative colitis Ulcerative colitis Ventral hernia without obstruction or gangrene (08/07/16) Surgical History Fractures History of neck surgery (~2006) History of nephrectomy (~08/2015) History of third molar tooth extraction History of tonsillectomy (~1955) History of tonsillectomy (~1956) History of tonsillectomy (~1959) Status post colonoscopy Family History Mother Congestive heart failure Father Liver failure Alzheimer's dementia Social History household members: spouse Smoking Status: Former smoker alcohol intake: never Smoking Status: Former smoker alcohol intake frequency: holidays/special occasions only Alcohol type: other Substance Use Type: does not use Exam Initial Vital Signs Initial Vital Signs: Vital Signs Temperature 96.2 F L 08/15/20 15:08 Pulse Rate 77 08/15/20 15:08 Respiratory Rate 18 08/15/20 15:08 Blood Pressure 94/60 08/15/20 15:08 Pulse Oximetry 97 08/15/20 15:08 GENERAL: Week alert pleasant 70-year-old male and in no acute distress. HEENT: Head atraumatic,EOMI, pupils reactive, face symmetric, dry mucous membranes CARDIOVASCULAR: Regular rate and rhythm without murmurs, rubs or gallops. RESPIRATORY: Breath sounds equal bilaterally, no wheezes rales or rhonchi. ABDOMEN: Soft, nontender. Normoactive bowel sounds all 4 quadrants. No guarding or rebound. : No CVA tenderness EXTREMITIES: Normal range of motion, no clubbing or edema. Neurovascularly intact NEUROLOGICAL: Alert and oriented x4.Normal gait and speech. Cranial nerves II through XII grossly intact. SKIN: Warm, dry, no laceration, no petechiae, no rashes or lesions. Course Orders Ordered: ED Orders 08/15/20 16:49 Complete Blood Count AUTO DIFF Stat Comprehensive Metabolic Panel Stat Lactate (Lactic Acid) Stat Lipase Stat Magnesium Stat Phosphorous Stat 08/15/20 19:22 CT abdomen pelvis w con Stat Potassium Chloride 40 meq/ (Sodium Chloride) 520 mls @ 130 mls/hr IV NOW ONE Stop: 08/15/20 23:20 Discontinued Medications Sodium Chloride (Normal Saline 0.9%) 1,000 mls @ 1,000 mls/hr IV BOLUS ONE Stop: 08/15/20 17:27 Last Infusion: 08/15/20 18:15 Dose: 0 mls/hr Documented by: Admin: 08/15/20 16:49 Dose: 1,000 mls/hr Documented by: JACEK Potassium Chloride (Potassium Chloride 20 Meq Tab) 40 meq PO NOW ONE Stop: 08/15/20 16:29 Last Admin: 08/15/20 16:49 Dose: 40 meq Documented by: JACEK Vital Signs Vital signs: Vital Signs - 8 hr 08/15/20 15:08 08/15/20 16:30 08/15/20 16:50 Temperature 96.2 F L Pulse Rate 77 65 63 Pulse Rate [Orthostatic Sitting] 107 H Pulse Rate [Orthostatic Standing] 99 H Respiratory Rate 18 22 24 Blood Pressure 94/60 117/72 134/76 Blood Pressure [Orthostatic Lying] 134/76 Blood Pressure [Orthostatic Sitting] 101/67 Blood Pressure [Orthostatic Standing] 121/68 Pulse Oximetry 97 96 98 08/15/20 16:54 08/15/20 16:56 08/15/20 16:57 Temperature Pulse Rate 107 H 84 Pulse Rate [Orthostatic Sitting] Pulse Rate [Orthostatic Standing] Respiratory Rate 27 H Blood Pressure 101/67 Blood Pressure [Orthostatic Lying] Blood Pressure [Orthostatic Sitting] Blood Pressure [Orthostatic Standing] Pulse Oximetry 97 98 08/15/20 17:00 08/15/20 17:09 08/15/20 17:30 Temperature Pulse Rate 99 H 90 61 Pulse Rate [Orthostatic Sitting] Pulse Rate [Orthostatic Standing] Respiratory Rate 25 H Blood Pressure 135/70 121/68 167/81 H Blood Pressure [Orthostatic Lying] Blood Pressure [Orthostatic Sitting] Blood Pressure [Orthostatic Standing] Pulse Oximetry 99 97 08/15/20 18:00 08/15/20 18:30 08/15/20 19:00 Temperature Pulse Rate 67 61 Pulse Rate [Orthostatic Sitting] Pulse Rate [Orthostatic Standing] Respiratory Rate 21 12 Blood Pressure 163/80 H 166/79 H 134/66 Blood Pressure [Orthostatic Lying] Blood Pressure [Orthostatic Sitting] Blood Pressure [Orthostatic Standing] Pulse Oximetry 93 97 98 MDM - Recheck/Abnormal Lab/Rx Lab Data Attestation: I reviewed the patient's lab results. Result diagrams: 08/15/20 16:49 08/15/20 16:49 Labs: Lab Results 08/15/20 08/15/20 08/15/20 Range/Units 16:49 16:49 16:49 WBC 5.0 (4.5-11.0) X10^3/uL RBC 4.31 L (4.5-5.9) X10^6/uL Hgb 11.7 L (13.5-17.5) g/dL Hct 35.9 L (41-53) % MCV 83.3 (80-100) fL MCH 27.3 (26-34) PG MCHC 32.7 (30-36) % RDW 21.3 H (11.6-14.8) % Plt Count 195 (150-400) X10^3/uL Neut % (Auto) 82.5 H (50-75) % Lymph % (Auto) 8.7 L (25-40) % [place] % (Auto) 7.4 (3-14) % Eos % (Auto) 1.0 L (2-4) % Baso % (Auto) 0.4 (0-2) % Neut # (Auto) 4100 (7830-6246) /uL Lymph # (Auto) 400 L (7197-3147) /uL [place] # (Auto) 400 (0-900) /uL Eos # (Auto) 0 (0-450) /uL Baso # (Auto) 0 (0-100) /uL RBC Morphology See below Poikilocytosis 1+ H Anisocytosis 2+ H Sodium 133 L (137-145) mmol/L Potassium 2.6 L* (3.4-5.1) mmol/L Chloride 100 (98-107) mmol/L Carbon Dioxide 28 (22-32) mmol/L BUN 13 (9-20) mg/dL Creatinine 1.85 H (0.66-1.25) mg/dL Estimated GFR 36.3 L (>60) mL/min BUN/Creatinine Ratio 7.0 (6-22) Glucose 102 (80-110) mg/dL Lactate 1.2 (0.7-2.1) mmol/L Calcium 9.0 (8.4-10.2) mg/dL Phosphorus 3.0 (2.3-3.7) mg/dL Magnesium 1.4 L (1.6-2.3) mg/dL Total Bilirubin 0.4 (0.2-1.3) mg/dL AST 28 (17-59) IU/L ALT 23 (<50) IU/L Alkaline Phosphatase 86 (38-126) U/L Total Protein 6.7 (6.3-8.2) g/dL Albumin 3.3 L (3.5-5.0) g/dL Globulin 3.4 (1.7-4.1) g/dL Albumin/Globulin Ratio 1.0 (1.0-2.8) Lipase 35 (23-300) U/L Imaging Data Chest x-ray: Radiologist's Impression: PROCEDURE: XR CHEST 1V INDICATIONS: suspected sepsis TECHNIQUE: One view of the chest was acquired. COMPARISON: [facility], CT, CT ANGIO CHEST PE PROTOCOL, 06/10/2020, 18:52. [facility], CR, XR CHEST 1V, 06/10/2020, 14:32. [facility], CR, XR CHEST 2V, 06/07/2020, 8:33. [facility], CR, XR CHEST 1V, 07/02/2020, 12:12. FINDINGS: Surgical changes and devices: Left lower neck clips are seen. Lungs and pleura: Lungs are clear. No pleural effusions or pneumothorax. Elevation of the left hemidiaphragm is seen. Mediastinum: Mediastinal contours appear normal. Heart size is normal. Bones and chest wall: No suspicious bony lesions. Age-appropriate bony degenerative changes are seen. Overlying soft tissues appear unremarkable. IMPRESSION: No focal infiltrates are seen. Elevation of the left hemidiaphragm. Dictated by: Rip Agarwal M.D. on 08/08/2020 at 9:30 MDM Narrative Medical decision making narrative: Appears severely dehydrated and weak. He has had few episodes of diarrhea in the emergency department. Found to be more hypokalemic in the ED than he was earlier in the day. He is feeling a little bit better with IV fluids. We did get a stool panel it is pending. He had a CT July 02 which did show increased size of the anal mass. Discussed admission with Marcus ADDISON and P who agrees and understands that CT is pending. Discharge Plan Departure Patient Disposition: Admitted as Observation Clinical Impression: Acute dehydration, Anal squamous cell carcinoma, Diarrhea, Acute hypokalemia Admit Date/Time: 08/15/20 19:24 Admit Provider: Isaias Thornton
[2020-08-15] MEDS: SODIUM CHLORIDE 0.9% 1,000 ML 1000 ML IV (16:49)
[2020-08-15] MEDS: POTASSIUM CHLORIDE 20 MEQ TAB 40 MEQ PO (16:49)
[2020-08-15 17:00] LABS: Add Manual Diff / Slide Review NO; Basophils Absolute Auto 0 /uL (0-100); Basophils Percent Auto 0.4 % (0-2); Eosinophils Absolute Auto 0 /uL (0-450); Hematocrit 35.9 % (41-53); Hemoglobin 11.7 g/dL (13.5-17.5); Lymphocytes Absolute Auto 400 /uL (1100-4500); Lymphocytes Percent Auto 8.7 % (25-40); Mean Corpuscular HGB Conc 32.7 % (30-36); Mean Corpuscular Hemoglobin 27.3 PG (26-34); Mean Corpuscular Volume 83.3 fL (80-100); Monocytes Absolute Auto 400 /uL (0-900); Monocytes Percent Auto 7.4 % (3-14); Neutrophils Absolute Auto 4100 /uL (1500-7000); Neutrophils Percent Auto 82.5 % (50-75); Platelet Count 195 X10^3/uL (150-400); Red Blood Cell Count 4.31 X10^6/uL (4.5-5.9); Red Cell Distribution Width 21.3 % (11.6-14.8)
[2020-08-15 17:06] LABS: Lactate (Lactic Acid) 1.2 mmol/L (0.7-2.1)
[2020-08-15 17:07] LABS: Alanine Aminotransferase 23 IU/L (<50); Albumin 3.3 g/dL (3.5-5.0); Alkaline Phosphatase 86 U/L (38-126); Aspartate Aminotransferase 28 IU/L (17-59); Bilirubin Total 0.4 mg/dL (0.2-1.3); Blood Urea Nitrogen 13 mg/dL (9-20); Carbon Dioxide 28 mmol/L (22-32); Chloride 100 mmol/L (98-107); Estimated Glomerular Filt Rate 36.3 mL/min (>60); Globulin 3.4 g/dL (1.7-4.1); Glucose 102 mg/dL (80-110); HEMOLYSIS < 15 (0-50); Lipase 35 U/L (23-300); Magnesium 1.4 mg/dL (1.6-2.3); Sodium 133 mmol/L (137-145); Total Protein 6.7 g/dL (6.3-8.2)
[2020-08-15 17:16] LABS: Potassium 2.6 mmol/L (3.4-5.1)
[2020-08-15 17:23] LABS: Anisocytosis 2+; Poikilocytosis 1+
--- NOTE | 2020-08-15 19:06 | PC.NURSE ---
Patient did not use bedpan, had accident in brief and also while putting next brief on.
--- NOTE | 2020-08-15 19:22 | DI.CT.S_ITS ---
PROCEDURE: CT ABDOMEN PELVIS W CON INDICATIONS: anal cancer TECHNIQUE: After the administration of intravenous contrast, 5 mm thick sections acquired from the diaphragm to the symphysis. 5 mm coronal and sagittal reformats were acquired. For radiation dose reduction, the following was used: automated exposure control, adjustment of mA and/or kV according to patient size. COMPARISON: [facility], CT, CT ABDOMEN PELVIS W CON, 04/07/2020, 12:38. [facility], MR, MR PELVIS WITH/WITHOUT CONTRAST, 04/27/2020, 14:16. [facility], CR, XR CHEST 1V, 07/02/2020, 12:12. [facility], CT, CT ABDOMEN PELVIS W CON, 07/02/2020, 12:39. FINDINGS: Image quality: Excellent. ABDOMEN: Lung bases: Left basilar atelectasis. Heart size is normal. Solid organs: Liver is normal in size and enhancement. Gallbladder is normal. Biliary system is non dilated. Pancreas enhances normally. Spleen is normal in size and enhancement. No adrenal nodules. Left kidney is absent. Right kidney is normal size and enhancement, without hydronephrosis. There is a 2 mm nonobstructive stone in inferior pole right kidney. Peritoneum and bowel: There is thickening of anus. There is an anal mass measuring 2.2 x 2.4 cm, decreased in size compared to 07/02/2020. There is 1.3 x 2.1 cm low-density area in the anterior wall of the anus containing a small pocket of gas collection. Bowel loops demonstrate normal caliber. No free fluid or air. Nodes and vessels: No retroperitoneal or mesenteric adenopathy by size criteria. Aorta and inferior vena cava are normal in size. Miscellaneous: No ventral hernias. PELVIS: Genitourinary: Bladder wall thickness is normal. Miscellaneous: Interval decrease in size of small pelvic lymph nodes. For example, a 0.4 cm left pelvic sidewall lymph node previously measured 0.8 cm. No inguinal adenopathy. Bilateral fat containing inguinal hernias are present. Bones: No suspicious bony lesions. No vertebral body compression fractures. IMPRESSION: 1. Interval decrease in size of the anal mass. 2. A 1.3 x 2.1 cm low-density area is seen in the anterior wall of the anus, which contains a small pocket of gas collection. This could represent a small abscess. 3. Interval decrease in size of small subcentimeter pelvic lymph nodes. 4. Left nephrectomy. Dictated by: Alanis Colbert M.D. on 08/15/2020 at 20:22 Approved by: Alanis Colbert M.D. on 08/15/2020 at 21:51
[2020-08-15 20:26] LABS: COVID19 -Nasal RAPID Negative (Negative)
[2020-08-15 21:11] LABS: Adenovirus F 40/41 Not Detected (Not Detect); Astrovirus Not Detected (Not Detect); Campylobacter Not Detected (Not Detect); Clostridium difficile toxin AB Not Detected (Not Detect); Cryptosporidium Not Detected (Not Detect); Cyclospora cayetanensis Not Detected (Not Detect); Entamoeba histolytica Not Detected (Not Detect); Enteroaggregative E.coli Not Detected (Not Detect); Enteropathogenic E.coli Not Detected (Not Detect); Enterotoxigenic E.coli It/st Not Detected (Not Detect); Giardia lamblia Not Detected (Not Detect); Norovirus GI/GII Not Detected (Not Detect); Plesiomonsa shigelloides Not Detected (Not Detect); Rotavirus A Not Detected (Not Detect); Salmonella Not Detected (Not Detect); Sapovirus Not Detected (Not Detect); Shiga-like toxin-prod E.coli Not Detected (Not Detect); Shigella/Enteroinvasive E.coli Not Detected (Not Detect); Vibrio Not Detected (Not Detect); Vibrio cholerae Not Detected (Not Detect); Yersinia enterocolitica Not Detected (Not Detect)
[2020-08-15] MEDS: SODIUM CHLORIDE 0.9% 1,000 ML 75 ML IV (21:47)
[2020-08-15] MEDS: MAGNESIUM SULFATE 2 GM/50 ML PIGGYBACK IV (21:48)
[2020-08-15] MEDS: POTASSIUM CHLORIDE 40 MEQ in SODIUM CHLORIDE 0.9% 500 ML 130 ML IV (21:49)
[2020-08-15] MEDS: ACYCLOVIR 400 MG TABLET PO (21:55)
[2020-08-15] MEDS: LIALDA 1.2 GM 1 EACH PO (21:56)
[2020-08-15] MEDS: HEPARIN 5,000 UNIT/ML VIAL 5000 UNIT SUBCUT (22:02)
--- NOTE | 2020-08-15 23:14 | PM.HP.1 ---
History of Present Illness History of Present Illness Date Patient Seen: 08/15/20 Time Patient Seen: 21:32 Chief complaint: inreased weakness, abn labs Narrative: Mr. Aleksandar Bay is a 70-year-old male with past medical history significant for squamous cell carcinoma of the anus, renal cell carcinoma status post nephrectomy ulcerative colitis, adrenal insufficiency, hypothyroidism, who presented to the ED due to intractable diarrhea and generalized weakness. The patient has been undergoing treatment for his anal cancer and had been undergoing chemotherapy with 5 FU and mitomycin-C via infusion pump completing on 05/31 2020 per patient report due to the patient continues receive radiation therapy with his last treatment 2 weeks ago. Patient states following the treatment he developed diarrhea that has been progressive and profuse. He describes having 15 diarrhea stools in 8 hours. He describes as watery diarrhea that is nonbloody and is not characteristic of his ulcerative colitis. The patient was last seen by Dr. hooker his oncologist on 07/26/2020 and subsequently by his primary care provider Dr. Collins on 08/09/2020. Plan was formulated for regular hydration and electrolytes of which the patient was to have infusion today at which time the patient was found to be hypokalemic with a potassium of 3.1 and and hypomagnesemic with a magnesium of 1.2. He was referred to the emergency room for further evaluation. Patient has associated complaints of orthostatic dizziness crampy abdominal pain when passing stool and peroneal irritation. The patient has been using Imodium and treatment of his diarrhea as recommended by Dr. Quan. He denies complaints of fevers or chills, flu or cold symptoms and has had no COVID-19 exposures. He denies complaints of chest pain or palpitations, shortness of breath cough or wheezing. He has abdominal pain that is crampy in character prior to passing diarrhea stool present had no nausea or vomiting. The patient denies urinary symptoms. Upon arrival to the ER the patient is afebrile with temperature 97.8?, heart rate of 76, blood pressure 101/66, respirations of 18 saturating 97%. Patient underwent CT of the abdomen and pelvis finding: Interval l decrease in size of the anal mass; A 1.3 x 2.1 cm low-density area is seen in the anterior wall of the anus, which contains a small pocket of gas collection, this could represent a small abscess; interval decrease in size of small subcentimeter pelvic lymph nodes; left nephrectomy. Laboratory analysis finds a white count of 5.0, hemoglobin of 11.7 and hematocrit of 35.9 with platelets of 195. He has a sodium of 133, potassium is 2.6, creatinine is 1.85 with an EGFR of 36.3. Magnesium is 1.4. Liver functions are all within normal range and albumin is 3.3. Lactic acid is 1.2. In the ER the patient received potassium 40 mEq p.o. and 40 mg once IV was ordered. The patient is admitted to the hospitalist service for intractable diarrhea with hypokalemia and hypomagnesia. Patient History Medical History Acquired hypothyroidism Acute dehydration Anal squamous cell carcinoma (~02/2020) Anemia (10/13/13) Bright red rectal bleeding C. 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 Syncope Ulcerative colitis Ventral hernia without obstruction or gangrene (08/07/16) Surgical History Fractures History of neck surgery (~2006) History of nephrectomy (~08/2015) History of third molar tooth extraction History of tonsillectomy (~1955) History of tonsillectomy (~1956) History of tonsillectomy (~1959) Status post colonoscopy Family & Social History Family History Mother Congestive heart failure Father Liver failure Alzheimer's dementia Social History: household members spouse Prior Living Arrangements House Safety & Behavioral: Feels Safe in Current Yes Environment Been Physically Hurt or No Threatened By a Person Suicidal Ideation Description None Suicide Plan Description No Plan Tobacco & Substance use: Smoking Status Former smoker alcohol intake never alcohol intake frequency holiday/special occasion Substance Use Type does not use Meds Home Medications and Allergies Home Medications Medication Instructions Recorded Confirmed Type mesalamine [Lialda] 1.2 g PO BID 09/30/18 08/15/20 History levothyroxine [Euthyrox] 88 mcg PO DAILY 03/24/20 08/15/20 History prednisone 5 mg tablet 2.5 mg PO BID 04/18/20 08/15/20 History famciclovir 250 mg tablet 250 mg PO BID PRN #30 tab 08/11/20 08/15/20 Rx Allergies Allergy/AdvReac Type Severity Reaction Status Date / Time cefazolin [CEFAZOLIN] Allergy Severe rash Verified 08/09/20 10:42 levofloxacin [From LEVAQUIN] Allergy Mild Verified 08/09/20 10:42 morphine [MORPHINE] Allergy Mild STOPPED Verified 08/09/20 10:42 BREATHING. Review of Systems Review of Systems ROS: Yes All systems reviewed with the patient and are negative except as otherwise documented Exam Vital Signs (past 8 hours): - 08/15/20 16:30 08/15/20 16:50 08/15/20 16:54 Temperature Pulse Rate 65 63 107 H Pulse Rate [Orthostatic Sitting] 107 H Pulse Rate [Orthostatic Standing] 99 H Respiratory Rate 22 24 27 H Blood Pressure 117/72 134/76 Blood Pressure [Orthostatic Lying] 134/76 Blood Pressure [Orthostatic Sitting] 101/67 Blood Pressure [Orthostatic Standing] 121/68 Pulse Oximetry 96 98 97 08/15/20 16:56 08/15/20 16:57 08/15/20 17:00 Temperature Pulse Rate 84 99 H Pulse Rate [Orthostatic Sitting] Pulse Rate [Orthostatic Standing] Respiratory Rate Blood Pressure 101/67 135/70 Blood Pressure [Orthostatic Lying] Blood Pressure [Orthostatic Sitting] Blood Pressure [Orthostatic Standing] Pulse Oximetry 98 99 08/15/20 17:09 08/15/20 17:30 08/15/20 18:00 Temperature Pulse Rate 90 61 67 Pulse Rate [Orthostatic Sitting] Pulse Rate [Orthostatic Standing] Respiratory Rate 25 H Blood Pressure 121/68 167/81 H 163/80 H Blood Pressure [Orthostatic Lying] Blood Pressure [Orthostatic Sitting] Blood Pressure [Orthostatic Standing] Pulse Oximetry 97 93 08/15/20 18:30 08/15/20 19:00 08/15/20 19:30 Temperature Pulse Rate 61 57 L Pulse Rate [Orthostatic Sitting] Pulse Rate [Orthostatic Standing] Respiratory Rate 21 12 11 L Blood Pressure 166/79 H 134/66 131/65 Blood Pressure [Orthostatic Lying] Blood Pressure [Orthostatic Sitting] Blood Pressure [Orthostatic Standing] Pulse Oximetry 97 98 98 08/15/20 20:39 Temperature 96.2 F L Pulse Rate 67 Pulse Rate [Orthostatic Sitting] Pulse Rate [Orthostatic Standing] Respiratory Rate 18 Blood Pressure 156/69 H Blood Pressure [Orthostatic Lying] Blood Pressure [Orthostatic Sitting] Blood Pressure [Orthostatic Standing] Pulse Oximetry 95 Oxygen Delivery Method Room Air Narrative Exam Narrative: GENERAL APPEARANCE: well developed, overweight male with a BMI of 30.3 who is chronically ill-appearing. HEENT: Normocephalic, PERRLA, sclera is anicteric, EOMs intact without nystagmus, no sinus tenderness to percussion, no rhinorrhea, mucous membranes are moist and pink with coating on tongue that is nontender. NECK/THYROID: neck supple, no JVD, no thyromegaly, trachea midline. LYMPH NODES: no cervical or supraclavicular lymphadenopathy. SKIN: Pallor, warm and dry, no visible rashes. HEART: regular rate, regular rhythm with occasional premature or dropped beat, S1-S2, no murmur, no rubs or gallops, brisk capillary refill, no edema LUNGS: Breath sounds diminished bibasilar no coarseness crackles or wheezing, no cough present CHEST: Symmetrical movement, no accessory muscle use, good tidal volume, no pain on AP or lateral compression,. ABDOMEN: Soft, no distention, mild diffuse abdominal tenderness on palpation no guarding or peritoneal signs, no organomegaly, no flank or suprapubic tenderness, hyperactive bowel tones. BACK: Nontender to palpation EXTREMITIES: moves all extremities, strength is 5/5 and symmetrical, no deformities or joint effusions, no cyanosis or clubbing. NEUROLOGIC: AAO x4, no focal neurologic deficits, cranial nerves II-XII grossly intact, sensation intact to light touch, hearing grossly normal to speech. PSYCH: Patient states his frustration, withdrawn, cooperative and follows directions. Objective Labs Result Diagrams: 08/15/20 16:49 08/15/20 16:49 Labs: Laboratory Results - last 24 hr 08/15/20 08/15/20 08/15/20 16:49 16:49 16:49 WBC 5.0 RBC 4.31 L Hgb 11.7 L Hct 35.9 L MCV 83.3 MCH 27.3 MCHC 32.7 RDW 21.3 H Plt Count 195 Neut % (Auto) 82.5 H Lymph % (Auto) 8.7 L Morrow % (Auto) 7.4 Eos % (Auto) 1.0 L Baso % (Auto) 0.4 Neut # (Auto) 4100 Lymph # (Auto) 400 L Morrow # (Auto) 400 Eos # (Auto) 0 Baso # (Auto) 0 RBC Morphology See below Poikilocytosis 1+ H Anisocytosis 2+ H Sodium 133 L Potassium 2.6 L* Chloride 100 Carbon Dioxide 28 BUN 13 Creatinine 1.85 H Estimated GFR 36.3 L BUN/Creatinine Ratio 7.0 Glucose 102 Lactate 1.2 Calcium 9.0 Phosphorus 3.0 Magnesium 1.4 L Total Bilirubin 0.4 AST 28 ALT 23 Alkaline Phosphatase 86 Total Protein 6.7 Albumin 3.3 L Globulin 3.4 Albumin/Globulin Ratio 1.0 Lipase 35 Stl C. cayetanensis PCR Stool Rotavirus (PCR) Stool Adenovirus (PCR) Stool Astrovirus (PCR) Stool Cryptosporidium PCR Stl E.coli Shiga Tox PCR St Sh/Enteroin Ecoli PCR Stool E coli O157 PCR Stl Enterotoxigenic E PCR Stool EPEC (PCR) Stl E. histolytica PCR Stool Giardia Lamblia PCR Stool Sapovirus (PCR) Stl P. shigelloides PCR St Y.enterocolitica PCR Stool Vibrio (PCR) Stl Vibrio cholerae PCR Stl Enteroaggr Ecoli PCR Stl Norovirus GI/GII PCR Campylobacter (PCR) C. difficile Tox (PCR) SARS-CoV-2 (PCR) Salmonella (PCR) 08/15/20 08/15/20 19:35 20:05 WBC RBC Hgb Hct MCV MCH MCHC RDW Plt Count Neut % (Auto) Lymph % (Auto) Morrow % (Auto) Eos % (Auto) Baso % (Auto) Neut # (Auto) Lymph # (Auto) Morrow # (Auto) Eos # (Auto) Baso # (Auto) RBC Morphology Poikilocytosis Anisocytosis Sodium Potassium Chloride Carbon Dioxide BUN Creatinine Estimated GFR BUN/Creatinine Ratio Glucose Lactate Calcium Phosphorus Magnesium Total Bilirubin AST ALT Alkaline Phosphatase Total Protein Albumin Globulin Albumin/Globulin Ratio Lipase Stl C. cayetanensis PCR Not detected Stool Rotavirus (PCR) Not detected Stool Adenovirus (PCR) Not detected Stool Astrovirus (PCR) Not detected Stool Cryptosporidium PCR Not detected Stl E.coli Shiga Tox PCR Not detected St Sh/Enteroin Ecoli PCR Not detected Stool E coli O157 PCR Not Reportable Stl Enterotoxigenic E PCR Not detected Stool EPEC (PCR) Not detected Stl E. histolytica PCR Not detected Stool Giardia Lamblia PCR Not detected Stool Sapovirus (PCR) Not detected Stl P. shigelloides PCR Not detected St Y.enterocolitica PCR Not detected Stool Vibrio (PCR) Not detected Stl Vibrio cholerae PCR Not detected Stl Enteroaggr Ecoli PCR Not detected Stl Norovirus GI/GII PCR Not detected Campylobacter (PCR) Not detected C. difficile Tox (PCR) Not detected SARS-CoV-2 (PCR) Negative Salmonella (PCR) Not detected Assessment & Plan Assessment & Plan narrative: This is a 70-year-old male patient presents to the hospital with progressive and profuse diarrhea following radiation therapy that is intractable developing hypokalemia and hypomagnesia despite outpatient treatment with Imodium. 1. Intractable Diarrhea, s/p radiation therapy for rectal cancer, present on admission, active. -progressive in profuse watery diarrhea. Patient reports having 15 diarrhea stools and 8 hours last night developing profound weakness and lightheadedness. -patient is found to be hypokalemic at 2.6. Patient received 40 mEq of potassium by mouth in the ER K rider 40 mEq ordered in the ER but not administered. Ordered 40 mEq of potassium IV now. Will recheck potassium level in the morning. -patient with hypo magnesium at 1.4. With ongoing diarrhea stools will replace with 2 g of magnesium IV x1 now and recheck magnesium level in the morning. -ordered Imodium 2 mg every 6 hours as needed for diarrhea. -rehydrate the patient with normal saline cautiously is 75 cc/hour. Encourage oral fluid intake. -ordered regular diet, high water soluble fiber. 2. Squamous cell cancer of the Rectum, chronic, active -rectal lesion was identified on April 11, 2020 during colonoscopy performed due to blood in the stool. -patient received 5 FU and mitomycin-C the infusion pump, chemotherapy has been discontinued due to complicated clinical course. -patient continues to receive radiation therapy, his last treatment was 2 weeks ago and has had diarrhea since. -CT of the abdomen and pelvis finding: Interval l decrease in size of the anal mass; A 1.3 x 2.1 cm; interval decrease in size of small subcentimeter pelvic lymph nodes. -CT also finds: low-density area is seen in the anterior wall of the anus, which contains a small pocket of gas collection, this could represent a small abscess. Will request surgery to consult for further evaluation. -the patient continues to follow with Dr. Quan 3. Acute dehydration, present on admission, active -patient with profuse watery diarrhea and poor p.o. intake, patient reports generalized weakness, lightheadedness and dizziness. -Orthostatic vital signs ordered Q shift. -patient has history of heart failure will be cautiously rehydrated 75 cc/hour and encourage p.o. fluids. 4. Chronic kidney disease stage 3, chronic, active -initial labs revealed creatinine of 1.85, creatinine is been highly variable between 1.2 and 2.1. On 08/08/2020 creatinine was 1.88. -patient is status post radical nephrectomy for renal cell cancer. -will avoid renal toxic agents and renally dose medications as indicated. -follow renal function on chemistries. 5. Chronic diastolic Heart failure with preserved ejection fraction, stable -echocardiogram completed on 06/06/2020: Normal LV size; proximal septal thickening noted. There is LVOT obstruction during Valsalva with peak velocity of 3.1 m/sec and peak gradient of 38 mm Hg. Rest V max is 1 m/sec and peak gradient of 10 mm Hg. EF is 60-65%. -chest x-ray completed on 08/08/2020 finds no acute cardiopulmonary findings including cardiomegaly or pulmonary edema. -will cautiously rehydrate with normal saline at 75 cc/hour. 6. Chronic HSV infection, stable. -patient takes famciclovir 250 mg twice daily which is not available through the hospital pharmacy. Ordered acyclovir 400 mg twice daily. 6. Chronic GERD, stable. -no reports of epigastric discomfort or reflux symptoms. -ordered famotidine 20 mg twice daily. 9. Chronic acquired hypothyroidism, stable -will continue home regimen of levothyroxine 88 mcg daily. 10. Ulcerative Colitis, chronic, stable. -the patient denies bloody stool or abdominal pain. -will continue home regimen of mesalamine and prednisone. VTE prophylaxis: Heparin. IV fluid: Normal saline 75 cc/hour. Diet: Regular diet with high water soluble fiber. Code status: Full code, patient designates his to be surrogate decision maker The patient is admitted to the hospital due to the severity of his symptoms and risk further deterioration, complications and adverse events. The patient is admitted as observation with expected length of stay to be less than 2 midnights. COVID-19 COVID-19 status: Negative Result date/Date tested (Pos, Neg/Pending): 08/15/20
[2020-08-15] MEDS: predniSONE 5 MG TABLET 2.5 MG PO (23:47)
[2020-08-16] VITALS (7 sets, daily range): BP systolic 78–136; BP diastolic 56–81; PULSE 60–88; RESP 16–20; TEMP 36.1–36.8; O2SAT 96–100; BMI 30.3; BMI 30.5
[2020-08-16] MEDS: OXYCODONE IR 5 MG TABLET PO (00:49)
[2020-08-16] MEDS: LOPERAMIDE 2 MG CAPSULE PO ×3 (00:56→17:23)
[2020-08-16] MEDS: HYDROMORPHONE 0.5 MG INJ IV (03:06)
[2020-08-16] MEDS: SODIUM CHLORIDE 0.9% 500 ML IV (03:06)
[2020-08-16 05:35] LABS: Add Manual Diff / Slide Review NO; Basophils Absolute Auto 0 /uL (0-100); Basophils Percent Auto 0.9 % (0-2); Eosinophils Absolute Auto 100 /uL (0-450); Hematocrit 32.6 % (41-53); Hemoglobin 10.7 g/dL (13.5-17.5); Lymphocytes Absolute Auto 400 /uL (1100-4500); Lymphocytes Percent Auto 11.2 % (25-40); Mean Corpuscular HGB Conc 32.8 % (30-36); Mean Corpuscular Hemoglobin 27.5 PG (26-34); Monocytes Absolute Auto 300 /uL (0-900); Neutrophils Absolute Auto 3100 /uL (1500-7000); Neutrophils Percent Auto 78.9 % (50-75); Platelet Count 162 X10^3/uL (150-400); Red Blood Cell Count 3.88 X10^6/uL (4.5-5.9); Red Cell Distribution Width 21.3 % (11.6-14.8); White Blood Cell Count 3.9 X10^3/uL (4.5-11.0)
[2020-08-16 05:40] LABS: BUN Creatinine Ratio 6.1 (6-22); Blood Urea Nitrogen 10 mg/dL (9-20); Calcium 8.1 mg/dL (8.4-10.2); Carbon Dioxide 26 mmol/L (22-32); Chloride 104 mmol/L (98-107); Estimated Glomerular Filt Rate 41.7 mL/min (>60); Glucose 87 mg/dL (80-110); HEMOLYSIS < 15 (0-50); Magnesium 1.9 mg/dL (1.6-2.3); Potassium 3.2 mmol/L (3.4-5.1); Sodium 133 mmol/L (137-145)
[2020-08-16 06:24] LABS: Anisocytosis 2+
--- NOTE | 2020-08-16 06:39 | PC.NURSE ---
Earth Burner Note-Patient continues to have frequent diarrhea, liquid yellow, initially incontinent in bed, then able to get up to BSC with assist. Orthostatic VS done, see in trends, 500ml NS bolus given for asymptomatic hypotension, then NS @ 100ml/hr. 5mg oxycodone given for pain all over, not very effective, IV Dilaudid ordered by PROFESSOR OF LITERACY which was effective. Patient's mood is labile, initially irritable and anxious with inappropriate language, then more relaxed, but remains apprehensive.
[2020-08-16] MEDS: POTASSIUM CHLORIDE 40 MEQ in SODIUM CHLORIDE 0.9% 500 ML 130 ML IV (07:39)
[2020-08-16] MEDS: LEVOTHYROXINE 88 MCG TABLET PO (07:47)
[2020-08-16] MEDS: KCL 40 MEQ IN NS 1,000 ML 125 MEQ IV ×3 (08:05→20:05)
[2020-08-16] MEDS: FAMOTIDINE 20 MG TABLET PO ×2 (08:47→21:10)
[2020-08-16] MEDS: LACTOBACILLUS ACIDOPHILUS TABLET 1 EACH PO (08:47)
[2020-08-16] MEDS: predniSONE 5 MG TABLET 2.5 MG PO ×2 (08:47→17:40)
[2020-08-16] MEDS: LIALDA 1.2 GM 1 EACH PO ×2 (08:48→17:18)
[2020-08-16] MEDS: ACYCLOVIR 400 MG TABLET PO ×3 (08:48→17:18)
[2020-08-16] MEDS: HEPARIN 5,000 UNIT/ML VIAL 5000 UNIT SUBCUT ×2 (08:48→21:09)
--- NOTE | 2020-08-16 09:48 | PC.NURSE ---
Addendum entered by Hortencia Díaz R.N. 08/16/20 12:43: Spoke to Dr. Caban regarding pt care requests. Per Dr. Caban I entered in new orders for acyclovir TID (0800, 1200, 1700) and hydrocortisone cream PRN for hemorrhoids. Addendum entered by Hortencia Díaz R.N. 08/16/20 10:51: pt has had two watery stools so far this shift. We have changed his brief and applied barrier cream to erythemic areas. Band-Aids applied to various herpes sore areas (per pt request). pt ambulated to chair from [facility] [place] with FWW. Denying lightheadedness and reporting feelings stable but weak. Provided waffle cushion. pt declined oral care and face wash. Told OT that he was too weak for shower. Original Note: AM Shift note. pt AO and showing signs of irritation. Calling appropriately. Multiple episodes of diarrhea, incontinent and will call afterwards for clean up assistance. PIV in right AC infusing NS with 40mEq K at 125/hr. pt reporting burning when it was at 130/hr and tolerating infusion post decrease in rate as well as warm blanket to AC area. Tele: SR with intermittent yared, BB, and PVC's. Flor-area and upper bilateral thighs erythemic and blanching. Using barrier cream and covering herpes with dual Band-Aids to each wart area (per pt request). Decreased appetite with less than 25% ate at breakfast. Refusing to associate number to pain in buttock but states it is dull and minimal. Immodium adminsitered after breakfast, per pt request, for diarrhea.
--- NOTE | 2020-08-16 10:00 | PC.NURSE ---
Call from PCP office. Catherine from Dr. Stephens's office called when the patient called their clinic to alert that he was not prescribed anything for his herpes. Student nurse administered 400mg Acyclovir PO this AM and another dose is scheduled for 2099. pt also c/o the ointment the floor carries and it stings his herpes warts. The AC floor no longer carries zinc based ointment but rather only silicone barrier cream. I educated the patient on this and asked that his bring in any ointments of his preference. I showed the patient the smattering of dressings to cover his herpes warts, pt chose two band-aids per wart.
--- NOTE | 2020-08-16 10:43 | PC.NURSE ---
CONTACT PRECAUTIONS initiated upon notice of an open herpes sore to pt's coccyx area. Per pt request I have applied several band-aids to various sores to bilateral buttocks and coccyx area.
--- NOTE | 2020-08-16 10:52 | OT.IPNOTE ---
Attempted to see pt for OT eval and pt states too tired at this time as just completed getting cleaned up with nursing. Pt states wanting to rest, but promised to try to work with PT later. OT to attempt OT eval again tomorrow. No charge.
--- NOTE | 2020-08-16 11:00 | PT.IIE ---
Surgical History (Last Reviewed 08/16/20 @ 02:51 by AMA Blackwell) Fractures History of neck surgery (~2006) History of nephrectomy (~08/2015) History of third molar tooth extraction History of tonsillectomy (~1955) History of tonsillectomy (~1956) History of tonsillectomy (~1959) Status post colonoscopy Medical History (Last Reviewed 08/16/20 @ 02:51 by AMA Blackwell) Acquired hypothyroidism Acute dehydration Anal squamous cell carcinoma (~02/2020) Anemia (10/13/13) Bright red rectal bleeding C. 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 Syncope Ulcerative colitis Ventral hernia without obstruction or gangrene (08/07/16) Physical Therapy Inpatient Evaluation/Re-Eval M1 PT/OT-IP Prior Functional Status Start: 08/16/20 11:40 Freq: NEEDED Status: Active Protocol: Document 08/16/20 11:00 AB (Rec: 08/16/20 11:57 AB [id number]) Medical Review Prior Functional Status Medical History Reviewed Yes Communication able to make needs known Mobility and Gait pt stated that he manages to be be independent at home; able to walk without AD to the toilet and back per pt; has difficulty doing stairs but able to complete per pt Social History Household Members spouse Living Arrangements House Number of Floors (Floors) One Floor Number of Stairs To Enter/Railing? 2 steps without rails Home Environment High Toilet,Walk in Shower, Built-In Shower Seat Home Equipment Shower Seat with Backrest,Hand Held Shower,Grab Bars In Shower Employment Status Retired Additional Social History Comment pt stated that his spouse works and he is alone most of the day but able to manage by himself. stated that there is HHPT and HH nurse that comes in to assist him. M2 PT-IP Current Condition Start: 08/16/20 11:40 Freq: NEEDED Status: Active Protocol: Document 08/16/20 11:00 AB (Rec: 08/16/20 11:57 AB [id number]) Physical Therapy Current Condition Current Condition Evaluation Date 08/16/20 Treatment Diagnosis anal squamous cell CA; dehydration; difficulty in walking Onset Date 08/15/20 Precautions Other Precautions falls; chemo precautions M3 PT-IP Subjective Start: 08/16/20 11:40 Freq: NEEDED Status: Active Protocol: Document 08/16/20 11:00 AB (Rec: 08/16/20 11:57 AB [email or web address]) Subjective Physical Therapy Visit Type Type Initial Evaluation Visit Start Time 11:00 Visit Stop Time 11:14 Total Visit Minutes 14 Number of HOME HEALTH CARE COORDINATOR Visits 0 Physical Therapy Visit Comments Patient Comments pt refusing PT and stated not today. when asked if PT can checked on him later in the afternoon, he reiterated not today. pt requesting to use the toilet and assisted. M4 PT-IP Mobility and Gait Start: 08/16/20 11:40 Freq: NEEDED Status: Active Protocol: Document 08/16/20 11:00 AB (Rec: 08/16/20 11:57 AB [email or web address]) PT-Transfer Assessment Equipment Orthotic/Prosthetic Devices or Brace: No Transfers Transfer Destination Bedside Commode Transfer Technique Stand Pivot Transfer Ability Level of Assist Standby Assistance,Use of Upper Extremities Comments Mobility Comments pt refusing PT and stated not today. when asked if PT can checked on him later in the afternoon, he reiterated not today. pt requesting to use the toilet and assisted. positioned bedside commode on the L side but pt wanted commode in front of him and does not want to use FWW for transfers. pt directs his own care and can get irritated easily. completed pivot transfer holding on to bedside commode SBA. assisted pt with brief management. asked pt regarding PLOF and home set up and stated that he told me before already ~ 4-5 weeks ago. informed pt that this PT did not eval pt before and stated that it is in his records. asked pt if he just wants PT to checked his records and pt answered that he does what he can at home and is set up for him to be able to move around by himself . pt refused further mobility . Left pt on bedside commode with call light within reach. Informed nurse Hortencia that pt is using the commode and PT will step out. PT-Balance Assessment Sitting Balance and Reactions Static Sitting Balance Ability Good Dynamic Sitting Balance Ability Fair Standing Balance and Reactions Static Standing Balance Ability Fair Dynamic Standing Balance Ability Fair Device Used without AD M5 PT-IP Objective Assessments Start: 08/16/20 11:40 Freq: NEEDED Status: Active Protocol: Document 08/16/20 11:00 AB (Rec: 08/16/20 11:57 AB [email or web address]) Orientation Orientation/Cognition Level of Alertness Alert Orientation Name,Place,Situation Safety Awareness Decreased Safety Awareness Muscle Tone Muscle Tone WNL Yes M6 PT-IP Treatment Start: 08/16/20 11:40 Freq: NEEDED Status: Active Protocol: Document 08/16/20 11:00 AB (Rec: 08/16/20 11:57 AB [email or web address]) Physical Therapy Treatment Education Education Provided Safety M7 PT-IP Assessment and Plan Start: 08/16/20 11:40 Freq: NEEDED Status: Active Protocol: Document 08/16/20 11:00 AB (Rec: 08/16/20 11:57 AB [email or web address]) PT Summary Assessment and Plan Potential Rehabilitation Potential Fair Status of Condition at Evaluation Evolving Summary Impairments Pain,Strength,Balance, Coordination,Sensation,Tone, Cognition,Bed Mobility, Transfers,Gait,Activity Tolerance Assessment Summary PT eval limited due to pt refusal to do much mobility but was able to transfer to the bedside commode SBA. pt tends to direct his own care and gets irritated/agitated easily. pt lives with his spouse who works but stated that he has HHPT and HH nurse. will continue to assess progress. Goals Transfer Goal Independent,Front Wheeled Walker Gait Goal Independent,Front Wheel Walker Gait Distance 50 Other Goals up/down 2 steps Days to Meet Goals 10 Frequency of Treatment Frequency Of Treatment Once a Day Treatment Plan Physical Therapy Treatment Plan Bed Mobility Training,Transfer Training,Gait Training, Therapeutic Exercise,Balance Retraining,Discharge Planning, Neuromuscular Re-ed, Coordination Retraining Other Recommendations and Next Treatment ambulation, stair climbing Focus Recommendations To Nursing Amount of Assist Needed 1 Person Assist Discharge Recommendations PT Discharge Recommendations Home with Assistance,Home Health Transportation Needs at Discharge Private Vehicle,Wheelchair/ Cabulance
[2020-08-16] MEDS: HYDROCORTISONE 2.5% CREAM 30 GM 1 APPLIC TOP (12:52)
--- NOTE | 2020-08-16 12:59 | P.PN_ITS ---
Subjective Subjective Date Patient Seen: 08/16/20 Interval history: The patient was seen examined at bedside. He states that he continues to have diarrhea though it is somewhat better today. He feels overall dehydrated. No other complaints. Denies fevers, chills, chest pain, shortness of breath review of systems is otherwise negative. Exam Vital Signs (past 8 hours): - 08/16/20 07:30 08/16/20 12:00 08/16/20 12:15 Temperature 97.0 F L 97.7 F Pulse Rate 60 67 Respiratory Rate 18 16 Blood Pressure 120/74 124/74 Pulse Oximetry 100 99 Oxygen Delivery Method Room Air Oxygen Flow Rate 0 Narrative Exam Narrative: Const General: cooperative Orientation: alert, awake and oriented x3 HENMT Head: normal to inspection, normocephalic and atraumatic Eyes General: appearance normal, both eyes and all related structures Pupils: PERRL EOM: EOM intact bilaterally Neck Neck: normal visual inspection and full ROM Chest Chest: normal inspection of the chest and normal palpation of entire chest wall Resp Effort & Inspection: normal respiratory effort Auscultation: no rales, no rhonchi and no wheezes Cardio Palpation: normal PMI Rate: regular rate Rhythm: regular rhythm Heart Sounds: S1 normal and S2 normal GI Inspection: normal to inspection Palpation: soft, No guarding and No tender Auscultation: normal bowel sounds Neuro General: patient alert, patient awake, patient oriented x3 and CN's II-XI intact bilaterally Motor: muscle tone normal throughout Sensory Exam: no sensory deficits noted Extrem General: normal to inspection Psych Mood: congruent mood Affect: normal affect Attitude: cooperative Thought Content: normal Objective Labs Result Diagrams: 08/16/20 05:20 08/16/20 05:20 Labs: Laboratory Results - last 24 hr 08/15/20 08/15/20 08/15/20 16:49 16:49 16:49 WBC 5.0 RBC 4.31 L Hgb 11.7 L Hct 35.9 L MCV 83.3 MCH 27.3 MCHC 32.7 RDW 21.3 H Plt Count 195 Neut % (Auto) 82.5 H Lymph % (Auto) 8.7 L [place] % (Auto) 7.4 Eos % (Auto) 1.0 L Baso % (Auto) 0.4 Neut # (Auto) 4100 Lymph # (Auto) 400 L [place] # (Auto) 400 Eos # (Auto) 0 Baso # (Auto) 0 RBC Morphology See below Poikilocytosis 1+ H Anisocytosis 2+ H Sodium 133 L Potassium 2.6 L* Chloride 100 Carbon Dioxide 28 BUN 13 Creatinine 1.85 H Estimated GFR 36.3 L BUN/Creatinine Ratio 7.0 Glucose 102 Lactate 1.2 Calcium 9.0 Phosphorus 3.0 Magnesium 1.4 L Total Bilirubin 0.4 AST 28 ALT 23 Alkaline Phosphatase 86 Total Protein 6.7 Albumin 3.3 L Globulin 3.4 Albumin/Globulin Ratio 1.0 Lipase 35 TSH Stl C. cayetanensis PCR Stool Rotavirus (PCR) Stool Adenovirus (PCR) Stool Astrovirus (PCR) Stool Cryptosporidium PCR Stl E.coli Shiga Tox PCR St Sh/Enteroin Ecoli PCR Stool E coli O157 PCR Stl Enterotoxigenic E PCR Stool EPEC (PCR) Stl E. histolytica PCR Stool Giardia Lamblia PCR Stool Sapovirus (PCR) Stl P. shigelloides PCR St Y.enterocolitica PCR Stool Vibrio (PCR) Stl Vibrio cholerae PCR Stl Enteroaggr Ecoli PCR Stl Norovirus GI/GII PCR Campylobacter (PCR) C. difficile Tox (PCR) SARS-CoV-2 (PCR) Salmonella (PCR) 08/15/20 08/15/20 08/16/20 19:35 20:05 05:20 WBC 3.9 L RBC 3.88 L Hgb 10.7 L Hct 32.6 L MCV 84.0 MCH 27.5 MCHC 32.8 RDW 21.3 H Plt Count 162 Neut % (Auto) 78.9 H Lymph % (Auto) 11.2 L [place] % (Auto) 7.0 Eos % (Auto) 2.0 Baso % (Auto) 0.9 Neut # (Auto) 3100 Lymph # (Auto) 400 L [place] # (Auto) 300 Eos # (Auto) 100 Baso # (Auto) 0 RBC Morphology See below Poikilocytosis Anisocytosis 2+ H Sodium Potassium Chloride Carbon Dioxide BUN Creatinine Estimated GFR BUN/Creatinine Ratio Glucose Lactate Calcium Phosphorus Magnesium Total Bilirubin AST ALT Alkaline Phosphatase Total Protein Albumin Globulin Albumin/Globulin Ratio Lipase TSH Stl C. cayetanensis PCR Not detected Stool Rotavirus (PCR) Not detected Stool Adenovirus (PCR) Not detected Stool Astrovirus (PCR) Not detected Stool Cryptosporidium PCR Not detected Stl E.coli Shiga Tox PCR Not detected St Sh/Enteroin Ecoli PCR Not detected Stool E coli O157 PCR Not Reportable Stl Enterotoxigenic E PCR Not detected Stool EPEC (PCR) Not detected Stl E. histolytica PCR Not detected Stool Giardia Lamblia PCR Not detected Stool Sapovirus (PCR) Not detected Stl P. shigelloides PCR Not detected St Y.enterocolitica PCR Not detected Stool Vibrio (PCR) Not detected Stl Vibrio cholerae PCR Not detected Stl Enteroaggr Ecoli PCR Not detected Stl Norovirus GI/GII PCR Not detected Campylobacter (PCR) Not detected C. difficile Tox (PCR) Not detected SARS-CoV-2 (PCR) Negative Salmonella (PCR) Not detected 08/16/20 08/16/20 05:20 05:20 WBC RBC Hgb Hct MCV MCH MCHC RDW Plt Count Neut % (Auto) Lymph % (Auto) [place] % (Auto) Eos % (Auto) Baso % (Auto) Neut # (Auto) Lymph # (Auto) [place] # (Auto) Eos # (Auto) Baso # (Auto) RBC Morphology Poikilocytosis Anisocytosis Sodium 133 L Potassium 3.2 L Chloride 104 Carbon Dioxide 26 BUN 10 Creatinine 1.64 H Estimated GFR 41.7 L BUN/Creatinine Ratio 6.1 Glucose 87 Lactate Calcium 8.1 L Phosphorus Magnesium 1.9 Total Bilirubin AST ALT Alkaline Phosphatase Total Protein Albumin Globulin Albumin/Globulin Ratio Lipase TSH 0.530 Stl C. cayetanensis PCR Stool Rotavirus (PCR) Stool Adenovirus (PCR) Stool Astrovirus (PCR) Stool Cryptosporidium PCR Stl E.coli Shiga Tox PCR St Sh/Enteroin Ecoli PCR Stool E coli O157 PCR Stl Enterotoxigenic E PCR Stool EPEC (PCR) Stl E. histolytica PCR Stool Giardia Lamblia PCR Stool Sapovirus (PCR) Stl P. shigelloides PCR St Y.enterocolitica PCR Stool Vibrio (PCR) Stl Vibrio cholerae PCR Stl Enteroaggr Ecoli PCR Stl Norovirus GI/GII PCR Campylobacter (PCR) C. difficile Tox (PCR) SARS-CoV-2 (PCR) Salmonella (PCR) [facility] Medical History Acquired hypothyroidism Acute dehydration Anal squamous cell carcinoma (~02/2020) Anemia (04/23/14) Bright red rectal bleeding C. 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 Syncope Ulcerative colitis Ventral hernia without obstruction or gangrene (08/07/16) Surgical History Fractures History of neck surgery (~2006) History of nephrectomy (~08/2015) History of third molar tooth extraction History of tonsillectomy (~1955) History of tonsillectomy (~1956) History of tonsillectomy (~1959) Status post colonoscopy Family History Mother Congestive heart failure Father Liver failure Alzheimer's dementia Social History household members: spouse Smoking Status: Former smoker alcohol intake: never Assessment & Plan Assessment & Plan narrative: Assessment & Plan narrative: This is a 70-year-old male patient presents to the hospital with progressive and profuse diarrhea following radiation therapy that is intractable developing hypokalemia and hypomagnesia despite outpatient treatment with Imodium. 1. Intractable Diarrhea, s/p radiation therapy for rectal cancer, present on admission, active. He reports progressive profuse watery diarrhea, as bad as 15 stools per day. He now also has profound weakness and lightheadedness. He was found to be hypokalemic down to 2.6 which was repleted. She was also hypomagnesemic which was again repleted. C diff negative. COVID-19 negative. Suspect his diarrhea is radiation related. -continue with Imodium -continue IV hydration -encourage p.o. intake 2. Squamous cell cancer of the Rectum, chronic, active In March of 2020 he was found to have a rectal lesion during colonoscopy. He is status post 5 FU and mitomycin-C which was stopped due to complicated clinical course. He continues to receive radiation therapy, last treatment 2 weeks ago. He has had ongoing diarrhea since last radiation therapy. CT this admission shows an interval decrease in his anal mass. There was a questionable gas collection within this mass concerning for abscess. General surgery reviewed the patient''s imaging and does not believe that his imaging findings are consistent with abscess. 3. Acute dehydration, present on admission, active In the setting of profuse watery diarrhea. Continue to monitor orthostatics. Continue with IV fluid hydration. 4. Acute on chronic renal failure Baseline renal function ranges from 1.1-1.3. He presented with ANA with creatinine up to 1.8. He has a history of renal cancer status post radical nephrectomy. Suspect that his current ANA is prerenal in etiology due to dehydration. He was being hydrated with IV fluids. Continue to monitor renal f unction. Avoid nephrotoxins. 5. Chronic diastolic Heart failure with preserved ejection fraction, stable Echocardiogram completed on 06/06/2020: Normal LV size; proximal septal thickening noted. There is LVOT obstruction during Valsalva with peak velocity of 3.1 m/sec and peak gradient of 38 mm Hg. Rest V max is 1 m/sec and peak gradient of 10 mm Hg. EF is 60-65%. Chest x-ray completed on 08/08/2020 finds no acute cardiopulmonary findings including cardiomegaly or pulmonary edema. Monitor volume status. 6. Chronic HSV infection, stable. Patient reports mild exacerbation of his herpes. Will provide him with home acyclovir. Monitor renal function with the initiation of acyclovir. 6. Chronic GERD, stable. -no reports of epigastric discomfort or reflux symptoms. -ordered famotidine 20 mg twice daily. 9. Chronic acquired hypothyroidism, stable -will continue home regimen of levothyroxine 88 mcg daily. 10. Ulcerative Colitis, chronic, stable. -the patient denies bloody stool or abdominal pain. -will continue home regimen of mesalamine and prednisone. VTE prophylaxis: Heparin. IV fluid: Normal saline 75 cc/hour. Diet: Regular diet with high water soluble fiber. Code status: Full code, patient designates his to be surrogate decision maker COVID-19 COVID-19 status: Negative Result date/Date tested (Pos, Neg/Pending): 08/15/20
--- NOTE | 2020-08-16 13:14 | CM.DANOTE ---
Patient is a 70 year old male who was admitted on 08/15/20 for Weakness/Diarrhea. Pt has MCR for insurance and his PCP is Dr. Monica Collins. EMR was reviewed. Per MD, pt with hx of current anus Squamous cell and renal cell carcinoma with chemo completed on 05/31/20 [facility] and radiation at [facility] with Dr. Quan. Pt admitted for intractable diarrhea and dehydration. CDiff negative currently. Pt was last admitted in May 2020 a couple months ago and discharged to [facility] due to weakness and SOB and has since returned home with HH. PT recommending likely home with assist and HH. OT ordered but pt refused this morning, will attempt PM. SW met briefly bedside with pt and explained role, spouse had gone home for a while, and pt states he is quite tired and grumpy due to staff in and out of his room and not feeling well. Pt confirms he was at [facility] before discharging home with Mariella . Pt confirms that his spouse is still working multimedia services coordinator and assists him when she is home and that he has been managing at home alone during the day. Pt preference is home with Resume Mariella and then requests SW to come back later. SW called Mariella and confirmed he is open to service for RN/PT and that if pt discharges by tomorrow then just need Resume Orders. But if pt discharges on 08/18/20Friday or after then they will need new orders and F2F. SW faxed Facesheet and H&P to Mariella via [employer] to review. Plan: SW to follow closely for pt progress to confirm safe plan of home with spouse and Resume Mariella vs new orders. SW to follow for any further identified discharge planning needs. NONI Mayes Discharge Planning/Care Management Advanced directive, confirm from FAMILY Start: 08/15/20 20:29 Freq: Q24H Status: Active Protocol: Document 08/15/20 20:29 KJ (Rec: 08/16/20 00:03 KJ [id number]) Advance Directive, confirm on record Time 20:00 Person contacted spouse Copy received No CM Discharge Assessment Start: 08/16/20 13:06 Freq: Status: Active Protocol: Document 08/16/20 13:06 BF (Rec: 08/16/20 13:13 BF [id number]) Discharge Planning Assessment Assigned Digital Music Instructor NONI Gagnon DPOA/Assigned Designee Name Spouse Catarina Contact Information [phone] Advance Directives? Yes: at home per /will bring in later Advance Directives on File No History Provided By Patient,Family Member,Medical Record Has Patient been admitted in last 30 No days? Comment last admission was in May 2020 a couple months ago Prior Living Arrangements House Household Members spouse Type of transporation used prior to Relies on Others admit Independent with ADL's Yes: mostly Is patient alert and oriented? Yes Needs Assistance With Meal Prep,Managing Medications ,Home Chores / Shopping Caregiver for Another No Community Services used prior to Physical Therapy,Home Health admission: Nurse Comment Currently open with Mariella MANCUSO RN /PT Patient/Family Preference Home with Home Health Comment Resume Mariella MANCUSO, may need new orders and F2F at d/c Barriers to Discharge No Discharge Plan Home with Home Health Community Services Physical Therapy,Home Health Nurse Transportation Arrangement Family Referrals Initiated None needed Additional Comment Open with Mariella MANCUSO RN/PT If patient plan is home with home health No: Currently open, if d/c on : Has signed face to face form been 26th or after need new orders completed? SNF/HH Preference Resume Mariella MANCUSO Has Agency SNF been contacted Yes Review Status In Process Please Provide Date Initial DC 08/16/20 Assessment Was Performed Next Review Type Continued Stay Review
--- NOTE | 2020-08-16 19:15 | PC.NURSE ---
Pt complains of being extremely cold, unable to make him comfortable with warm blankets, Bear Hugger blanket applied and patient relaxed and after approximately 10 minutes was warm enough to remove Bear Hugger and replace with one blanket. Will plan to use PRN.
[2020-08-17] VITALS (9 sets, daily range): BP systolic 88–155; BP diastolic 64–90; PULSE 57–93; RESP 17–18; TEMP 36.3–36.6; O2SAT 96–100
[2020-08-17] MEDS: KCL 40 MEQ IN NS 1,000 ML 125 MEQ IV (04:08)
[2020-08-17] MEDS: LEVOTHYROXINE 88 MCG TABLET PO (06:26)
--- NOTE | 2020-08-17 08:50 | DIET.PN ---
Dietary Progress Note Assessment: 70y M admitted for rectal pain, intractable diarrhea, and generalized weakness stemming from chemo and radiation therapy for locally advanced anal squamous cell carcinoma. Pt also has ulcerative colitis. Pt assessed by RD during prior hospital stay in May and has lost significant weight since then secondary to intractable diarrhea, weakness, and low appetite. Pt experiencing significant loose watery stools secondary to radiation treatments and has been to ED previously for IV hydration. Pt Mg and K+ were low on admit. Pt reports a good day he will have loose stools every other hour (12x in 24h) but often has them up to twice per hour. Pt frustrated as he has received nutrition advice here and at the cancer center at [facility] but doesn't feel any of the advice is helping. Pt had been making smoothies containinc yogurt, 1/2c milk, 1c orange juice, and frozen strawberries but stopped doing this after his noticed his stools were light and smelled of spoiled milk. Pt endorses taste changes c chemo including some foods having no taste, and being hyper sensitive to salt. Pts ulcerative colitis is also flaring and he notices carrots and green beans move through his GI tract quickly and untransformed. HT: 182.8cm WT: 103.1kg (-14% unintentional in 2mo, severe) pt was 120kg on 06/05/20 UBW: 123kg BMI: 30.8 (dropped 5 points in 2mo, severe) Labs: K+ 2.6 L, Mg 1.4 L, Cr 1.85 H, eGFR 36.3 L Nutrition Diagnosis: 1. Severe Acute Protein Calorie Malnutrition r/t intractable diarrhea and intestinal malabsorption secondary to chemo and radx aeb 14% unintentional weight loss in 2mo (severe), pt currently having chemo and radx tx for locally advanced anal squamous cell carcinoma, therapy further aggrevates pts ulcerative colitis, pt reports 12 or more loose stools daily x 2mo, pt unable to tolerate previously tried supportive foods such as yogurt. 2. Altered nutrition related laboratory values (electrolytes) r/t significant diarrhea secondary to radiation tx aeb pt admitted c K+ 2.6, Mg 1.4, pt receiving radx for anal squamous cell carcinoma, pt unable to keep on top of hydration at home. Interventions: 1. Discussed importance of and patient's ability to stay hydrated through radiation side effects. Encouraged pt to have home supply of hydrating foods and beverages which also provide electrolytes. Pt can only tolerate 1/2 Ensure at a time, dislikes Pedialyte. Encouraged pt to use soy yogurt in smoothies if dairy is irritating. 2. Recc ONS smoothie to support protein and electrolyte needs during hospital stay per pts preference. Will modify home recipe to add protein and soymilk. Diet Order: Monitoring/Evaluations: ONS tolerance
[2020-08-17] MEDS: LIALDA 1.2 GM 1 EACH PO ×2 (09:00→18:13)
[2020-08-17] MEDS: predniSONE 5 MG TABLET 2.5 MG PO ×2 (09:01→18:13)
[2020-08-17] MEDS: ACYCLOVIR 400 MG TABLET PO ×3 (09:01→18:13)
[2020-08-17] MEDS: LACTOBACILLUS ACIDOPHILUS TABLET 1 EACH PO (09:01)
[2020-08-17] MEDS: FAMOTIDINE 20 MG TABLET PO ×2 (09:01→20:13)
[2020-08-17] MEDS: HEPARIN 5,000 UNIT/ML VIAL 5000 UNIT SUBCUT ×2 (09:01→20:13)
--- NOTE | 2020-08-17 09:51 | PC.NURSE ---
Day shift: Per Dr Arsh BA to d/c IV fluid per AUG when current bag has infused. Will d/c when bag is complete. Pt has been up to BSC at least 5 times this shift as of 949. Pt has also been cold. Heat in room is up but not to the top of dial and many sets of warm blankets have been placed on Pt. He making his needs known. Calm and cooperative w/ care. Call light in reach.
--- NOTE | 2020-08-17 10:50 | OT.IPNOTE ---
Pt states feeling much better today and looking to go home later today. Therefore pt not wanting to shower and feels that OT eval is not necessary for him at this time. Pt has all equipment needs for ADl's and his to assist. Able to suggest that pt would benefit from a bidet at home, pt agreed. No charge
--- NOTE | 2020-08-17 13:37 | PM.PN.1 ---
Subjective Subjective Date Patient Seen: 08/17/20 Interval history: The patient was seen examined at bedside. He reports overall feeling some increased energy today. He denies fevers chills. Still states that he has ongoing diarrhea, about 5 times thus far today. He continues to be orthostatic. Exam Vital Signs (past 8 hours): - 08/17/20 08:59 08/17/20 11:50 Temperature 97.6 F Pulse Rate 67 Pulse Rate [Orthostatic Lying] 60 Pulse Rate [Orthostatic Sitting] 65 Pulse Rate [Orthostatic Standing] 74 Respiratory Rate 18 Blood Pressure 107/64 Blood Pressure [Orthostatic Lying] 137/80 Blood Pressure [Orthostatic Sitting] 131/76 Blood Pressure [Orthostatic Standing] 110/73 Pulse Oximetry 99 Oxygen Delivery Method Room Air Oxygen Flow Rate 0 Narrative Exam Narrative: Const General: cooperative Orientation: alert, awake and oriented x3 HENMT Head: normal to inspection, normocephalic and atraumatic Eyes General: appearance normal, both eyes and all related structures Pupils: PERRL EOM: EOM intact bilaterally Neck Neck: normal visual inspection and full ROM Chest Chest: normal inspection of the chest and normal palpation of entire chest wall Resp Effort & Inspection: normal respiratory effort Auscultation: no rales, no rhonchi and no wheezes Cardio Palpation: normal PMI Rate: regular rate Rhythm: regular rhythm Heart Sounds: S1 normal and S2 normal GI Inspection: normal to inspection Palpation: soft, No guarding and No tender Auscultation: normal bowel sounds Neuro General: patient alert, patient awake, patient oriented x3 and CN's II-XI intact bilaterally Motor: muscle tone normal throughout Sensory Exam: no sensory deficits noted Extrem General: normal to inspection Psych Mood: congruent mood Affect: normal affect Attitude: cooperative Thought Content: normal Objective Labs Result Diagrams: 08/16/20 05:20 08/16/20 05:20 [facility] Medical History Acquired hypothyroidism Acute dehydration Anal squamous cell carcinoma (~02/2020) Anemia (10/13/13) Bright red rectal bleeding C. 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 Syncope Ulcerative colitis Ventral hernia without obstruction or gangrene (08/07/16) Surgical History Fractures History of neck surgery (~2006) History of nephrectomy (~08/2015) History of third molar tooth extraction History of tonsillectomy (~1955) History of tonsillectomy (~1956) History of tonsillectomy (~1959) Status post colonoscopy Family History Mother Congestive heart failure Father Liver failure Alzheimer's dementia Social History household members: spouse Smoking Status: Former smoker alcohol intake: never Assessment & Plan Assessment & Plan narrative: Assessment & Plan narrative: Assessment & Plan narrative: This is a 70-year-old male patient presents to the hospital with progressive and profuse diarrhea following radiation therapy that is intractable developing hypokalemia and hypomagnesia despite outpatient treatment with Imodium. 1. Intractable Diarrhea, s/p radiation therapy for rectal cancer, present on admission, active. He reports progressive profuse watery diarrhea, as bad as 15 stools per day. He now also has profound weakness and lightheadedness. He was found to be hypokalemic down to 2.6 which was repleted. She was also hypomagnesemic which was again repleted. C diff negative. COVID-19 negative. Suspect that he has radiation-induced diarrhea. -continue with Imodium -continue IV hydration -encourage p.o. intake 2. Squamous cell cancer of the Rectum, chronic, active In March of 2020 he was found to have a rectal lesion during colonoscopy. He is status post 5 FU and mitomycin-C which was stopped due to complicated clinical course. He continues to receive radiation therapy, last treatment 2 weeks ago. He has had ongoing diarrhea since last radiation therapy. CT this admission shows an interval decrease in his anal mass. There was a questionable gas collection within this mass concerning for abscess. General surgery reviewed the patient''s imaging and does not believe that his imaging findings are consistent with abscess. 3. Acute dehydration, present on admission, active In the setting of profuse watery diarrhea. Continue to monitor orthostatics. Continue with IV fluid hydration. 4. Acute on chronic renal failure Baseline renal function ranges from 1.1-1.3. He presented with ANA with creatinine up to 1.8. He has a history of renal cancer status post radical nephrectomy. Suspect that his current ANA is prerenal in etiology due to dehydration. He was being hydrated with IV fluids. Continue to monitor renal function. Avoid nephrotoxins. 5. Chronic diastolic Heart failure with preserved ejection fraction, stable Echocardiogram completed on 06/06/2020: Normal LV size; proximal septal thickening noted. There is LVOT obstruction during Valsalva with peak velocity of 3.1 m/sec and peak gradient of 38 mm Hg. Rest V max is 1 m/sec and peak gradient of 10 mm Hg. EF is 60-65%. Chest x-ray completed on 08/08/2020 finds no acute cardiopulmonary findings including cardiomegaly or pulmonary edema. Monitor volume status. 6. Chronic HSV infection, stable. Patient reports mild exacerbation of his herpes. Will provide him with home acyclovir. Monitor renal function with the initiation of acyclovir. 6. Chronic GERD, stable. -no reports of epigastric discomfort or reflux symptoms. -ordered famotidine 20 mg twice daily. 9. Chronic acquired hypothyroidism, stable -will continue home regimen of levothyroxine 88 mcg daily. 10. Ulcerative Colitis, chronic, stable. -the patient denies bloody stool or abdominal pain. -will continue home regimen of mesalamine and prednisone. VTE prophylaxis: Heparin SQ Code status: Full code, patient designates his to be surrogate decision maker
[2020-08-17 13:49] LABS: BUN Creatinine Ratio 5.9 (6-22); Blood Urea Nitrogen 8 mg/dL (9-20); Calcium 8.6 mg/dL (8.4-10.2); Carbon Dioxide 21 mmol/L (22-32); Chloride 111 mmol/L (98-107); Estimated Glomerular Filt Rate 51.8 mL/min (>60); Glucose 96 mg/dL (80-110); HEMOLYSIS < 15 (0-50); Sodium 135 mmol/L (137-145)
--- NOTE | 2020-08-17 14:24 | PT-IP ANOTE ---
pt refused PT. stated that he has medicare and has HHPT and that he will be ok at home.
[2020-08-17] MEDS: SODIUM POLYSTYRENE SULFON/SORB 15 GM/60 ML CUP PO ×2 (14:27→18:41)
[2020-08-17] MEDS: INSULIN REGULAR 100 UNIT/ML 3 ML VIAL 8 UNIT IV ×2 (15:15→18:41)
[2020-08-17] MEDS: DEXTROSE 50 % IN WATER 25 GM/50 ML SYRINGE IV ×2 (15:15→18:41)
[2020-08-17 17:57] LABS: HEMOLYSIS < 15 (0-50)
[2020-08-17 18:03] LABS: Potassium 5.8 mmol/L (3.4-5.1)
[2020-08-17] MEDS: FUROSEMIDE 40 MG/4 ML VIAL 20 MG IV (18:40)
[2020-08-17] MEDS: LOPERAMIDE 2 MG CAPSULE PO (18:47)
[2020-08-17] MEDS: CALCIUM GLUCONATE 4.65 MEQ in SODIUM CHLORIDE 0.9% 50 ML 180 ML IV (20:35)
[2020-08-17] MEDS: SODIUM CHLORIDE 0.9% FLUSH 10 ML IV (20:35)
[2020-08-17 23:23] LABS: BUN Creatinine Ratio 5.9 (6-22); Blood Urea Nitrogen 9 mg/dL (9-20); Calcium 9.3 mg/dL (8.4-10.2); Carbon Dioxide 25 mmol/L (22-32); Chloride 110 mmol/L (98-107); Estimated Glomerular Filt Rate 45.2 mL/min (>60); Glucose 96 mg/dL (80-110); HEMOLYSIS < 15 (0-50); Magnesium 1.7 mg/dL (1.6-2.3); Potassium 5.3 mmol/L (3.4-5.1); Sodium 138 mmol/L (137-145)
[2020-08-18 00:07] VITALS: BP 148/87; PULSE 79; RESP 18; TEMP 36.7; O2SAT 96
[2020-08-18 00:21] VITALS: BP 115/86; BP 135/75; BP 148/87; PULSE 79; PULSE 85; PULSE 90
[2020-08-18 04:00] VITALS: BP 149/93; PULSE 74; RESP 18; TEMP 36.6; O2SAT 98
[2020-08-18 05:47] LABS: BUN Creatinine Ratio 5.3 (6-22); Blood Urea Nitrogen 8 mg/dL (9-20); Calcium 8.6 mg/dL (8.4-10.2); Carbon Dioxide 25 mmol/L (22-32); Chloride 111 mmol/L (98-107); Estimated Glomerular Filt Rate 46.3 mL/min (>60); Glucose 86 mg/dL (80-110); HEMOLYSIS < 15 (0-50); Potassium 4.6 mmol/L (3.4-5.1); Sodium 136 mmol/L (137-145)
[2020-08-18] MEDS: LEVOTHYROXINE 88 MCG TABLET PO (06:57)
[2020-08-18 08:00] VITALS: BP 147/85; PULSE 78; RESP 18; TEMP 36.1; O2SAT 98
[2020-08-18] MEDS: FAMOTIDINE 20 MG TABLET PO (08:41)
[2020-08-18] MEDS: LACTOBACILLUS ACIDOPHILUS TABLET 1 EACH PO (08:41)
[2020-08-18] MEDS: predniSONE 5 MG TABLET 2.5 MG PO ×2 (08:41→17:06)
[2020-08-18] MEDS: ACYCLOVIR 400 MG TABLET PO ×3 (08:41→17:07)
[2020-08-18] MEDS: HEPARIN 5,000 UNIT/ML VIAL 5000 UNIT SUBCUT (08:42)
[2020-08-18] MEDS: LIALDA 1.2 GM 1 EACH PO ×2 (08:42→17:09)
[2020-08-18] MEDS: SODIUM CHLORIDE 0.9% FLUSH 10 ML IV (08:43)
--- NOTE | 2020-08-18 11:27 | PT-IP ANOTE ---
pt refused PT x2 . He again, stated that he has medicare and has HHPT and that he will be fine at home. Explained role of PT to him and recommended pt to acquire BSC and grab bar installed next to his toilet. Pt understood and agreed to be d/c from PT service.
[2020-08-18 12:00] VITALS: BP 124/70; PULSE 75; RESP 16; TEMP 36.1; O2SAT 98
--- NOTE | 2020-08-18 13:42 | PC.NURSE ---
Day shift: IV removed this afternoon. Site failed and blooding and redness. No s/s of infection. Dr Allen notified and she will let RN know if he will need another IV placed. Pt feeling better but stated he feels tired at this time ([id number]). Call light in reach. Makes needs known.
[2020-08-18 16:30] VITALS: BP 137/77; PULSE 72; RESP 18; TEMP 36.6; O2SAT 97
--- NOTE | 2020-08-18 17:01 | P.DS_ITS ---
History of Present Illness History of Present Illness Date Patient Seen: 08/18/20 Chief complaint: inreased weakness, abn labs Narrative: Mr. Aleksandar Bay is a 70-year-old male with past medical history significant for squamous cell carcinoma of the anus, renal cell carcinoma status post nephrectomy ulcerative colitis, adrenal insufficiency, hypothyroidism, who presented to the ED due to intractable diarrhea and generalized weakness. The patient has been undergoing treatment for his anal cancer and had been undergoing chemotherapy with 5 FU and mitomycin-C via infusion pump completing on 05/31 2020 per patient report due to the patient continues receive radiation therapy with his last treatment 2 weeks ago. Patient states following the treatment he developed diarrhea that has been progressive and profuse. He describes having 15 diarrhea stools in 8 hours. He describes as watery diarrhea that is nonbloody and is not characteristic of his ulcerative colitis. The patient was last seen by Dr. hooker his oncologist on 07/26/2020 and subsequently by his primary care provider Dr. Collins on 08/09/2020. Plan was formulated for regular hydration and electrolytes of which the patient was to have infusion today at which time the patient was found to be hypokalemic with a potassium of 3.1 and and hypomagnesemic with a magnesium of 1.2. He was referred to the emergency room for further evaluation. Patient has associated complaints of orthostatic dizziness crampy abdominal pain when passing stool and peroneal irritation. The patient has been using Imodium and treatment of his diarrhea as recommended by Dr. Quan. He denies complaints of fevers or chills, flu or cold symptoms and has had no COVID-19 exposures. He denies complaints of chest pain or palpitations, shortness of breath cough or wheezing. He has abdominal pain that is crampy in character prior to passing diarrhea stool present had no nausea or vomiting. The patient denies urinary symptoms. Upon arrival to the ER the patient is afebrile with temperature 97.8?, heart rate of 76, blood pressure 101/66, respirations of 18 saturating 97%. Patient underwent CT of the abdomen and pelvis finding: Interval l decrease in size of the anal mass; A 1.3 x 2.1 cm low-density area is seen in the anterior wall of the anus, which contains a small pocket of gas collection, this could represent a small abscess; interval decrease in size of small subcentimeter pelvic lymph nodes; left nephrectomy. Laboratory analysis finds a white count of 5.0, hemoglobin of 11.7 and hematocrit of 35.9 with platelets of 195. He has a sodium of 133, potassium is 2.6, creatinine is 1.85 with an EGFR of 36.3. Magnesium is 1.4. Liver functions are all within normal range and albumin is 3.3. Lactic acid is 1.2. In the ER the patient received potassium 40 mEq p.o. and 40 mg once IV was ordered. The patient is admitted to the hospitalist service for intractable diarrhea with hypokalemia and hypomagnesia. Discharge Providers Provider Date of admission: 08/16/20 10:01 Discharge Date: 08/18/20 Primary care physician: Monica Collins DO Consults: 08/15/20 20:29 Consult to Dietitian, Adult Routine Comment: Reason For Exam: chemo, weight loss 08/15/20 20:29 Consult to Discharge Planning Routine Comment: Consult to Occupational Therapy Evaluate & Treat Comment: Electrolyte disturbance, general weakness, anal ca Physician Instructions: Evaluate and treat Consult to Physical Therapy Evaluate & Treat Comment: Electrolyte disturbance, general weakness, anal ca Physician Instructions: Evaluate and Treat 08/16/20 03:40 Consult to General Surgery Routine Comment: Consulting Provider: Donovan Middleton Reason for consultation: Possible anal abscess, rectal squamous cell cancer Has provider been notified: No Discharge provider: Rehana Allen MD Summary Hospital Course Discharge Diagnosis: 1. Acute renal failure secondary to dehydration 2. Diarrhea, multifactorial 3. Squamous cell carcinoma of the rectum status post chemotherapy and radiation therapy 4. Ulcerative colitis 5. Hypothyroidism 6. Herpes simplex 7. Severe protein calorie malnutrition 8. History of renal cell carcinoma status post nephrectomy Hospital Course: Patient is a 70-year-old male who was admitted to the hospital for dehydration, acute renal failure, and significant diarrhea. Patient had a complete evaluation including a C diff which was negative. He was given IV f luids. He had improvement of his renal failure. The patient also was placed on Imodium. This improved his diarrhea. As of last night he had no further diarrhea and reports formed stools. The patient denies any pain. He feels significantly improved. And was deemed appropriate for discharge home. Patient notes that he has lost 50 lb over the past 2 months related to his chemo and radiation. He will need to follow-up with his primary care provider regarding nutrition support given his significant weight loss. Overall the patient was improved and deemed appropriate for discharge home Exam Vital Signs (past 8 hours): - 08/18/20 12:00 Temperature 97.0 F L Pulse Rate 75 Respiratory Rate 16 Blood Pressure 124/70 Pulse Oximetry 98 Oxygen Delivery Method Room Air Oxygen Flow Rate 0 Narrative Exam Narrative: Pleasant male lying in bed in no obvious distress Lungs: Clear to auscultation Cardiac exam: Regular rate and rhythm normal S1-S2 Abdomen: Soft nontender nondistended Extremities: No edema Objective Labs Result Diagrams: 08/16/20 05:20 08/18/20 04:45 Labs: Laboratory Results - last 24 hr 08/17/20 08/17/20 08/18/20 17:44 23:00 04:45 Sodium 138 136 L Potassium 5.8 H 5.3 H 4.6 Chloride 110 H 111 H Carbon Dioxide 25 25 BUN 9 8 L Creatinine 1.53 H 1.50 H Estimated GFR 45.2 L 46.3 L BUN/Creatinine Ratio 5.9 L 5.3 L Glucose 96 86 Calcium 9.3 8.6 Magnesium 1.7 [facility] Medical History Acquired hypothyroidism Acute dehydration Anal squamous cell carcinoma (~02/2020) Anemia (10/13/13) Bright red rectal bleeding C. 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 Acute renal failure, secondary to dehydration 2. Diarrhea, multifactorial, improved 3. History of rectal carcinoma status post chemotherapy 4. Hypokalemia secondary to diarrhea Plan of Treatment: Continue medications as prescribed Patient is discharged home Will follow-up with his PCP in oncologist next week Discharge Plan Discharge Plan Patient Disposition: Home Discharge orders & Medications Prescriptions: Continued prednisone 5 mg tablet 2.5 mg PO BID RF: 0 famciclovir 250 mg tablet 250 mg PO BID PRN (Reason: herpes zoster) Qty: 30 RF: 1 levothyroxine [Euthyrox] 88 mcg tablet 88 mcg PO DAILY RF: 0 mesalamine [Lialda] 1.2 gram Tablet,Delayed Release (Dr/Ec) 1.2 g PO BID RF: 0 Follow up/Referrals: Monica Collins DO [Primary Care Provider] - Diet/Activity/Treatments Diet: Diet as Tolerated Discharge Data Primary Care Provider: Monica Collins
--- NOTE | 2020-08-18 17:48 | PC.NURSE ---
Discharge Note Patient A&O, VSS, RA, no complaints of pain/discomfort. Discharged packet reviewed with patient with this RN, no questions/concerns. Tele/PIV discontinued. All belongings packed for patient. Medications retrieved from pharmacy and given to patient. Belongings and discharge packet given to patient's . Patient taken down via wheelchair by this RN to POV.
--- NOTE | 2020-08-19 07:57 | CM.DPC ---
DCP Cont: Patient discharged yesterday, the . According to notes, if patient discharged no later than the , face to face would not be needed, just resumption orders. Faxed resumption orders to [place], and left a message on Eugenia's phone at [facility] that patient discharged yesterday. Will hold on to face to face as back up. P: Patient discharged yesterday, faxed over resumption orders to [place] and DC summary. Cahntel Crews RN/[employer]
== END 2020-08-18 18:10 | disposition home health service (06) | DRG 682 ==
LOC: ED 19:24 → AC 19:25
PROVIDERS: Hospitalist; Admitting Provider Nurse Practitioner Adult Health; Emergency Provider Emergency Medicine; PCP Family Medicine; Referring Provider Emergency Medicine; Visit Provider Nurse Practitioner Adult Health
DX: N17.9 Acute kidney failure, unspecified (principal); E43 Unspecified severe protein-calorie malnutrition; K51.90 Ulcerative colitis, unspecified, without complications; I50.32 Chronic diastolic (congestive) heart failure; C20 Malignant neoplasm of rectum; R19.7 Diarrhea, unspecified; E87.6 Hypokalemia; E83.42 Hypomagnesemia; E86.0 Dehydration; N18.30 Chronic kidney disease, stage 3 unspecified; E89.0 Postprocedural hypothyroidism; B00.9 Herpesviral infection, unspecified; K21.9 Gastro-esophageal reflux disease without esophagitis; R79.89 Other specified abnormal findings of blood chemistry; Z20.822 Contact with and (suspected) exposure to COVID-19; Z68.31 Body mass index [BMI] 31.0-31.9, adult; Z85.528 Personal history of other malignant neoplasm of kidney; Z87.891 Personal history of nicotine dependence
CPT/HCPCS: 36415; 74177; 80048; 80053; 83605; 83690; 83735; 84100; 84132; 84443; 85025; 87507; 87635; 96360; 97162; 99283; 99284; C9803; G0378; A9270; J0610; J1170; J1644; J1940; J3475; J3480

== ENCOUNTER → 2020-09-07 10:37 | Outpatient (CLI) | payer MEDICARE, SELFPAY ==
[2020-08-16 20:29] VITALS: BMI 30.5
[2020-09-07 11:09] LABS: BUN Creatinine Ratio 14.5 (6-22); Blood Urea Nitrogen 18 mg/dL (9-20); Calcium 8.9 mg/dL (8.4-10.2); Carbon Dioxide 34 mmol/L (22-32); Chloride 101 mmol/L (98-107); Estimated Glomerular Filt Rate 57.6 mL/min (>60); Glucose 85 mg/dL (80-110); HEMOLYSIS < 15 (0-50); Magnesium 1.5 mg/dL (1.6-2.3); Potassium 3.9 mmol/L (3.4-5.1); Sodium 136 mmol/L (137-145)
== END ==
PROVIDERS: PCP Family Medicine; Referring Provider Family Medicine; Visit Provider Family Medicine
DX: E86.0 Dehydration (principal); E87.6 Hypokalemia; R79.89 Other specified abnormal findings of blood chemistry
CPT/HCPCS: 36415; 80048; 83735

== ENCOUNTER → 2020-09-07 11:06 | Outpatient (CLI) | payer MEDICARE, SELFPAY ==
[2020-08-16 20:29] VITALS: BMI 30.5
[2020-09-07] MEDS: COVID-19 VACC #1, MRNA(MOD) 100 MCG/0.5 ML VIAL IM (11:19)
== END ==
PROVIDERS: PCP Family Medicine; Visit Provider Internal Medicine
DX: Z23 Encounter for immunization (principal)
CPT/HCPCS: 0011A; 91301

== ENCOUNTER → 2020-09-15 11:54 | Outpatient (CLI) | payer MEDICARE, SELFPAY ==
[2020-08-16 20:29] VITALS: BMI 30.5
--- NOTE | 2020-09-15 12:00 | DI.US.S_ITS ---
PROCEDURE: US PERIPH VENOUS LOW EXTREM LT INDICATIONS: left leg swelling in cancer patient TECHNIQUE: Real-time imaging, as well as color and pulse Doppler interrogation, were performed of the lower extremity deep veins from the inguinal ligament to the popliteal fossa. COMPARISON: None. FINDINGS: The common femoral, femoral and popliteal veins are normally compressible, and free of intraluminal thrombus. Color and pulse Doppler demonstrate normal phasic intraluminal flow. There is normal augmentation response to distal compression maneuver. IMPRESSION: No sonographic evidence of DVT. Dictated by: Tony Kern M.D. on 09/15/2020 at 12:47 Approved by: Tony Kern M.D. on 09/15/2020 at 12:47
== END ==
PROVIDERS: PCP Family Medicine; Referring Provider Family Medicine; Visit Provider Family Medicine
DX: R60.0 Localized edema (principal)
CPT/HCPCS: 93971

== ENCOUNTER → 2020-10-02 10:58 | Outpatient (CLI) | payer MEDICARE, SELFPAY ==
[2020-08-16 20:29] VITALS: BMI 30.5
[2020-10-02 11:40] LABS: BUN Creatinine Ratio 16.5 (6-22); Blood Urea Nitrogen 20 mg/dL (9-20); Calcium 9.4 mg/dL (8.4-10.2); Carbon Dioxide 30 mmol/L (22-32); Chloride 104 mmol/L (98-107); Estimated Glomerular Filt Rate 59.3 mL/min (>60); Glucose 80 mg/dL (80-110); HEMOLYSIS < 15 (0-50); Magnesium 1.6 mg/dL (1.6-2.3); Potassium 3.4 mmol/L (3.4-5.1); Sodium 139 mmol/L (137-145)
== END ==
PROVIDERS: PCP Family Medicine; Referring Provider Family Medicine; Visit Provider Family Medicine
DX: E86.0 Dehydration (principal); N17.9 Acute kidney failure, unspecified; R79.89 Other specified abnormal findings of blood chemistry
CPT/HCPCS: 80048; 83735

== ENCOUNTER → 2020-10-05 11:12 | Outpatient (CLI) | payer MEDICARE, SELFPAY ==
[2020-08-16 20:29] VITALS: BMI 30.5
[2020-10-05] MEDS: COVID-19 VACC #2, MRNA(MOD) 100 MCG/0.5 ML VIAL IM (11:14)
== END ==
PROVIDERS: PCP Family Medicine; Visit Provider Internal Medicine
DX: Z23 Encounter for immunization (principal)
CPT/HCPCS: 0012A; 91301

== ENCOUNTER → 2021-01-20 09:59 | Outpatient (CLI) | payer MEDICARE, SELFPAY ==
[2020-08-16 20:29] VITALS: BMI 30.5
[2021-01-20 11:47] LABS: COVID19 -Nasal RAPID Negative (Negative)
== END ==
PROVIDERS: PCP Family Medicine; Visit Provider Student in an Organized Health Care Education/Training Program
DX: Z20.822 Contact with and (suspected) exposure to COVID-19 (principal); Z01.812 Encounter for preprocedural laboratory examination
CPT/HCPCS: 87635; C9803

== ENCOUNTER → 2021-02-07 10:58 | Outpatient (CLI) | payer MEDICARE, SELFPAY ==
[2020-08-16 20:29] VITALS: BMI 30.5
--- NOTE | 2021-02-07 12:22 | DI.CT.S_ITS ---
PROCEDURE: CT CHEST ABD PEL W CON INDICATIONS: Malignant neoplasm of anus, unspecified TECHNIQUE: After the administration of oral and intravenous contrast, axial sections acquired from the supraclavicular neck to the pubic symphysis. Coronal and sagittal reformats were performed. For radiation dose reduction, the following was used: automated exposure control, adjustment of mA and/or kV according to patient size. COMPARISON: [facility], CT, CT CHEST ABD PEL W CON, 04/21/2020, 13:20. FINDINGS: Image quality: Excellent. CHEST: Lungs and pleura: No acute air space opacities. There is scarring in the left lung base. No pleural effusions or pneumothorax. Central and peripheral airways are patent and normal in caliber. Mediastinum: Heart size is normal. No pericardial effusion. No mediastinal adenopathy by size criteria. Thoracic aorta and central pulmonary arteries are normal in size. Esophagus is normal in caliber. No hiatal hernia. Chest wall: No axillary or supraclavicular adenopathy by size criteria. Thyroid gland is normal . ABDOMEN: Solid organs: Liver: The liver has no mass or intrahepatic biliary ductal dilatation. The portal vein and hepatic veins are patent. Biliary: The gallbladder has no gallstones, pericholecystic fluid, gallbladder wall thickening, or surrounding inflammatory change. Pancreas: The pancreas has no mass or ductal dilatation. There is no surrounding inflammation. Spleen: Normal size. There are no masses. Adrenals: The right adrenal gland is normal. The left adrenal gland has likely been resected. Kidneys: Status post left nephrectomy. The right kidney has no solid or cystic mass. Bowel: The distal esophagus and stomach are normal. The small bowel has a normal caliber and appearance. The terminal ileum is normal. The large bowel has a normal caliber and appearance to the distal rectum. The distal rectum and anus demonstrate wall thickening and perirectal fat stranding. The anus measures 4.5 x 5.8 centimeters compared to 3.2 x 4.9 centimeters on the prior CT on 04/21/2020. Please correlate with history. The perirectal fat has no nodularity or adenopathy. The appendix is normal. No free fluid or air. Nodes and vessels: No retroperitoneal or mesenteric adenopathy by size criteria. The aorta has atherosclerosis with no aneurysmal dilatation. Abdominal wall: There are fat containing inguinal hernias bilaterally. The right inguinal hernia contains a segment of the wall of the bladder. There is a ventral hernia containing bowel. PELVIS: Genitourinary: The bladder has no mass. The right anterior portion of the bladder extends into the right inguinal hernia. BONES: No suspicious bony lesions. No vertebral body compression fractures. A previously described 7 millimeter lucent lesion in the left iliac bone is unchanged. IMPRESSION: 1. Anal mass is again visualized and appears larger with surrounding fat stranding which may be due to radiation therapy. No evidence of local spread. 2. Bilateral fat containing inguinal hernias with a segment of the bladder in the right inguinal canal. 3. Ventral hernia in the midline containing small bowel. 4. Status post left nephrectomy and adrenalectomy. Dictated by: Ihsan Aviles M.D. on 02/07/2021 at 14:49 Approved by: Ihsan Aviles M.D. on 02/07/2021 at 15:12
== END ==
PROVIDERS: PCP Family Medicine; Referring Provider General Practice; Visit Provider General Practice
DX: C21.0 Malignant neoplasm of anus, unspecified (principal); K40.20 Bilateral inguinal hernia, without obstruction or gangrene, not specified as recurrent; K43.9 Ventral hernia without obstruction or gangrene; E89.6 Postprocedural adrenocortical (-medullary) hypofunction; Z90.5 Acquired absence of kidney
CPT/HCPCS: 71260; 74177

== ENCOUNTER 2021-02-14 16:32 | Inpatient (IN) | payer MEDICARE, SELFPAY ==
[2020-08-16 20:29] VITALS: BMI 30.5
[2021-02-14] VITALS (67 sets, daily range): BP systolic 42–130; BP diastolic 25–75; PULSE 67–96; RESP 12–34; TEMP 36.3–36.8; O2SAT 90–100; BMI 34.0
[2021-02-14] MEDS: SODIUM CHLORIDE 0.9% 1,000 ML 1000 ML IV (16:50)
[2021-02-14 17:02] LABS: Add Manual Diff / Slide Review NO; Basophils Absolute Auto 0 /uL (0-100); Basophils Percent Auto 0.4 % (0-2); Eosinophils Absolute Auto 0 /uL (0-450); Eosinophils Percent Auto 0.6 % (2-4); Hematocrit 29.6 % (41-53); Hemoglobin 9.5 g/dL (13.5-17.5); Lymphocytes Absolute Auto 100 /uL (1100-4500); Lymphocytes Percent Auto 1.1 % (25-40); Mean Corpuscular HGB Conc 32.2 % (30-36); Mean Corpuscular Hemoglobin 26.5 PG (26-34); Mean Corpuscular Volume 82.3 fL (80-100); Monocytes Absolute Auto 0 /uL (0-900); Monocytes Percent Auto 0.5 % (3-14); Neutrophils Absolute Auto 7000 /uL (1500-7000); Neutrophils Percent Auto 97.4 % (50-75); Platelet Count 229 X10^3/uL (150-400); Red Blood Cell Count 3.59 X10^6/uL (4.5-5.9); Red Cell Distribution Width 17.3 % (11.6-14.8); White Blood Cell Count 7.2 X10^3/uL (4.5-11.0)
[2021-02-14 17:07] LABS: Lipase 97 U/L (23-300); Magnesium 1.5 mg/dL (1.6-2.3)
[2021-02-14 17:08] LABS: Alanine Aminotransferase 17 IU/L (<50); Albumin Globulin Ratio 0.9 (1.0-2.8); Alkaline Phosphatase 89 U/L (38-126); Aspartate Aminotransferase 31 IU/L (17-59); BUN Creatinine Ratio 18.5 (6-22); Bilirubin Total 0.3 mg/dL (0.2-1.3); Blood Urea Nitrogen 30 mg/dL (9-20); Calcium 9.2 mg/dL (8.4-10.2); Carbon Dioxide 31 mmol/L (22-32); Chloride 101 mmol/L (98-107); Estimated Glomerular Filt Rate 42.2 mL/min (>60); Globulin 3.3 g/dL (1.7-4.1); Glucose 93 mg/dL (80-110); HEMOLYSIS < 15 (0-50); Potassium 3.5 mmol/L (3.4-5.1); Sodium 137 mmol/L (137-145); Total Protein 6.3 g/dL (6.3-8.2)
[2021-02-14 17:09] LABS: Lactate (Lactic Acid) 2.4 mmol/L (0.7-2.1)
[2021-02-14 17:20] LABS: Troponin I 0.064 ng/mL (0.01-0.034)
--- NOTE | 2021-02-14 17:33 | ED_ITS ---
HPI - General Adult General Chief complaint: Weakness Stated complaint: Feeling Ill, worsening condition Time Seen by Provider: 02/14/21 16:32 Source: patient, family and EMS Mode of arrival: EMS Limitations: no limitations History of Present Illness HPI narrative: 71-year-old gentleman with complex medical history most recently with anal rectal cancer, bleeding from such with a history of radiation treatment and increasing pain. He is scheduled for resection with colostomy and plastics revision on 02/20 at [facility]. He has had very little input, not eating or drinking well. He states he has not had a fever, cough, chills, increase in his baseline abdominal pain related to his rectal cancer. He has not had diarrhea recently. He has been increasingly weak. Related Data Home Medications Medication Instructions Recorded Confirmed mesalamine 1.2 gram tablet,delayed 1.2 g PO BID 09/30/18 09/15/20 release (Lialda) levothyroxine 88 mcg tablet 88 mcg PO DAILY 03/24/20 09/15/20 (Euthyrox) prednisone 5 mg tablet 2.5 mg PO BID 04/18/20 09/15/20 Previous Rx's Medication Instructions Recorded magnesium chloride 64 mg 64 mg PO DAILY #30 tab 09/06/20 (magnesium chloride) tablet,delayed release miscellaneous medical supply #1 ea 10/02/20 oxycodone-acetaminophen 5 mg-325 See Rx Instructions PO BEDTIME PRN 10/03/20 mg tablet #30 tab famciclovir 250 mg tablet See Rx Instructions .ROUTE 11/06/20 .COMPLEX #180 tab gabapentin 100 mg capsule 100 mg PO .COMPLEX #150 cap MDD 500 02/08/21 Allergies Allergy/AdvReac Type Severity Reaction Status Date / Time cefazolin [CEFAZOLIN] Allergy Severe rash Verified 09/15/20 11:24 levofloxacin [From LEVAQUIN] Allergy Mild Verified 09/15/20 11:24 morphine [MORPHINE] Allergy Mild STOPPED Verified 09/15/20 11:24 BREATHING. Review of Systems Review of Systems Narrative: Remainder of complete review of systems is otherwise unremarkable except for that included in the HPI. Patient History Medical History (Updated 02/14/21 @ 19:40 by Dora Baker MD) Acquired hypothyroidism Acute dehydration Acute hypokalemia Anal squamous cell carcinoma (~02/2020) Anemia (10/13/13) Bright red rectal bleeding C. 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 Syncope Ulcerative colitis Ventral hernia without obstruction or gangrene (08/07/16) Surgical History Fractures History of neck surgery (~2006) History of nephrectomy (~08/2015) History of third molar tooth extraction History of tonsillectomy (~1955) History of tonsillectomy (~1956) History of tonsillectomy (~1959) Status post colonoscopy Family History Mother Congestive heart failure Father Liver failure Alzheimer's dementia Social History household members: spouse Smoking Status: Former smoker alcohol intake: never Smoking Status: Former smoker alcohol intake frequency: holidays/special occasions only Alcohol type: other Substance Use Type: does not use Exam Narrative Exam Narrative: General: Pale, obese, week. He is able to give a completet history HEENT: Dry mucous membranes, normal sclera with reactive pupils, Neck: No JVD, supple Respiratory: Lungs are clear to auscultation, no wheezing no rales no rhonchi. Full and symmetrical air movement Cardiac: Regular rate and rhythm, no tachycardia, no murmurs no bruits Abdomen: Soft, obese, nontender, good bowel tones, no flank pain Skin: Pale but well perfused Neurologic: Globally weak but Grossly neurologically intact with no obvious asymmetries or abnormalities Extremities: No trauma, he is complaining of chronic back pain and the known chronic rectal pain related to his cancer Psych: Cooperative, anxious and requesting significant assistance Initial Vital Signs Initial Vital Signs: Vital Signs Temperature 97.3 F L 02/14/21 16:35 Pulse Rate 84 02/14/21 16:35 Respiratory Rate 18 02/14/21 16:35 Blood Pressure 77/53 L 02/14/21 16:35 Pulse Oximetry 100 02/14/21 16:35 Course Orders Ordered: ED Orders 02/14/21 16:49 Complete Blood Count AUTO DIFF Stat Comprehensive Metabolic Panel Stat Lactate (Lactic Acid) Stat Lipase Stat Magnesium Stat Troponin I Stat 02/14/21 16:51 Urinalysis and Microscopic Stat EKG-12 Lead Stat 02/14/21 17:10 COVID19 - ADMIT ([employer] swab/PCR) Stat 02/14/21 17:17 Blood Culture Stat Norepinephrine Bitartrate 4 mg (/ Dextrose) 254 mls @ 30.48 mls/hr IV TITRATE JOY; Protocol Last Admin: 02/14/21 18:38 Dose: 8 mcg/min, 30.48 mls/hr Documented by: ANDREA Discontinued Medications Sodium Chloride (Normal Saline 0.9%) 1,000 mls @ 1,000 mls/hr IV BOLUS ONE Stop: 02/14/21 17:48 Last Infusion: 02/14/21 17:58 Dose: 0 mls/hr Documented by: Admin: 02/14/21 16:50 Dose: 1,000 mls/hr Documented by: EMIR Lactated Ringer's (Lactated Ringers) 1,000 mls @ 2,000 mls/hr IV BOLUS ONE Stop: 02/14/21 18:56 Last Admin: 02/14/21 18:37 Dose: 2,000 mls/hr Documented by: ANDREA Vital Signs Vital signs: Vital Signs - 8 hr 02/14/21 16:35 02/14/21 16:38 02/14/21 16:52 Temperature 97.3 F L Pulse Rate 84 96 H 92 H Respiratory Rate 18 24 24 Blood Pressure 77/53 L 77/53 L Pulse Oximetry 100 94 98 02/14/21 16:57 02/14/21 17:00 02/14/21 17:21 Temperature Pulse Rate 90 85 84 Respiratory Rate 20 23 25 H Blood Pressure 85/51 L 85/53 L 83/52 L Pulse Oximetry 100 100 98 02/14/21 17:30 02/14/21 17:34 02/14/21 17:40 Temperature Pulse Rate 80 80 80 Respiratory Rate 12 15 19 Blood Pressure 76/48 L 77/50 L 86/53 L Pulse Oximetry 96 97 99 02/14/21 17:50 02/14/21 18:00 02/14/21 18:09 Temperature Pulse Rate 80 84 86 Respiratory Rate 19 21 34 H Blood Pressure 84/54 L 74/43 L 73/45 L Pulse Oximetry 100 90 L 97 02/14/21 18:14 02/14/21 18:19 02/14/21 18:20 Temperature Pulse Rate 83 83 83 Respiratory Rate 17 29 H 31 H Blood Pressure 59/33 L 58/38 L 58/38 L Pulse Oximetry 98 98 99 02/14/21 18:21 02/14/21 18:22 02/14/21 18:25 Temperature Pulse Rate 84 83 80 Respiratory Rate 21 17 16 Blood Pressure 59/40 L 54/36 L 54/37 L Pulse Oximetry 98 97 97 02/14/21 18:26 02/14/21 18:27 02/14/21 18:30 Temperature Pulse Rate 81 79 72 Respiratory Rate 17 23 16 Blood Pressure 53/37 L 53/34 L 42/25 L Pulse Oximetry 96 96 95 02/14/21 18:35 02/14/21 18:40 02/14/21 18:45 Temperature Pulse Rate 70 72 71 Respiratory Rate 18 14 26 H Blood Pressure 47/32 L 57/36 L 82/46 L Pulse Oximetry 94 96 97 02/14/21 18:50 02/14/21 18:55 02/14/21 19:00 Temperature Pulse Rate 73 72 76 Respiratory Rate 12 34 H 25 H Blood Pressure 90/52 L 90/54 L 101/59 L Pulse Oximetry 97 96 98 02/14/21 19:05 02/14/21 19:10 02/14/21 19:15 Temperature Pulse Rate 75 76 79 Respiratory Rate 21 23 26 H Blood Pressure 109/61 112/64 105/63 Pulse Oximetry 100 100 98 02/14/21 19:20 02/14/21 19:25 02/14/21 19:30 Temperature Pulse Rate 78 78 79 Respiratory Rate 21 18 23 Blood Pressure 124/62 123/63 119/60 Pulse Oximetry 98 98 99 Medical Decision Making Lab Data Lab results narrative: 02/05/2021 H/H was 9.7/31.8 Creat 1.24 Result diagrams: 02/14/21 16:49 02/14/21 16:49 Labs: Lab Results 02/14/21 02/14/21 02/14/21 Range/Units 16:49 16:49 16:49 WBC 7.2 (4.5-11.0) X10^3/uL RBC 3.59 L (4.5-5.9) X10^6/uL Hgb 9.5 L (13.5-17.5) g/dL Hct 29.6 L (41-53) % MCV 82.3 (80-100) fL MCH 26.5 (26-34) PG MCHC 32.2 (30-36) % RDW 17.3 H (11.6-14.8) % Plt Count 229 (150-400) X10^3/uL Neut % (Auto) 97.4 H (50-75) % Lymph % (Auto) 1.1 L (25-40) % [place] % (Auto) 0.5 L (3-14) % Eos % (Auto) 0.6 L (2-4) % Baso % (Auto) 0.4 (0-2) % Neut # (Auto) 7000 (6140-7470) /uL Lymph # (Auto) 100 L (7537-4328) /uL [place] # (Auto) 0 (0-900) /uL Eos # (Auto) 0 (0-450) /uL Baso # (Auto) 0 (0-100) /uL Sodium 137 (137-145) mmol/L Potassium 3.5 (3.4-5.1) mmol/L Chloride 101 (98-107) mmol/L Carbon Dioxide 31 (22-32) mmol/L BUN 30 H (9-20) mg/dL Creatinine 1.62 H (0.66-1.25) mg/dL Estimated GFR 42.2 L (>60) mL/min BUN/Creatinine Ratio 18.5 (6-22) Glucose 93 (80-110) mg/dL Lactate (0.7-2.1) mmol/L Calcium 9.2 (8.4-10.2) mg/dL Magnesium 1.5 L (1.6-2.3) mg/dL Total Bilirubin 0.3 (0.2-1.3) mg/dL AST 31 (17-59) IU/L ALT 17 (<50) IU/L Alkaline Phosphatase 89 (38-126) U/L Troponin I 0.064 H (0.01-0.034) ng/mL Total Protein 6.3 (6.3-8.2) g/dL Albumin 3.0 L (3.5-5.0) g/dL Globulin 3.3 (1.7-4.1) g/dL Albumin/Globulin Ratio 0.9 L (1.0-2.8) Lipase 97 (23-300) U/L SARS-CoV-2 (PCR) (Negative) 02/14/21 02/14/21 Range/Units 16:49 17:10 WBC (4.5-11.0) X10^3/uL RBC (4.5-5.9) X10^6/uL Hgb (13.5-17.5) g/dL Hct (41-53) % MCV (80-100) fL MCH (26-34) PG MCHC (30-36) % RDW (11.6-14.8) % Plt Count (150-400) X10^3/uL Neut % (Auto) (50-75) % Lymph % (Auto) (25-40) % [place] % (Auto) (3-14) % Eos % (Auto) (2-4) % Baso % (Auto) (0-2) % Neut # (Auto) (9306-0373) /uL Lymph # (Auto) (2424-2716) /uL [place] # (Auto) (0-900) /uL Eos # (Auto) (0-450) /uL Baso # (Auto) (0-100) /uL Sodium (137-145) mmol/L Potassium (3.4-5.1) mmol/L Chloride (98-107) mmol/L Carbon Dioxide (22-32) mmol/L BUN (9-20) mg/dL Creatinine (0.66-1.25) mg/dL Estimated GFR (>60) mL/min BUN/Creatinine Ratio (6-22) Glucose (80-110) mg/dL Lactate 2.4 H (0.7-2.1) mmol/L Calcium (8.4-10.2) mg/dL Magnesium (1.6-2.3) mg/dL Total Bilirubin (0.2-1.3) mg/dL AST (17-59) IU/L ALT (<50) IU/L Alkaline Phosphatase (38-126) U/L Troponin I (0.01-0.034) ng/mL Total Protein (6.3-8.2) g/dL Albumin (3.5-5.0) g/dL Globulin (1.7-4.1) g/dL Albumin/Globulin Ratio (1.0-2.8) Lipase (23-300) U/L SARS-CoV-2 (PCR) Negative (Negative) ECG Data Interpretation: Sinus rhythm at a rate of 84 Normal intervals, normal axis Likely septal infarct no acute ischemic changes currently MDM Narrative Medical decision making narrative: 71-year-old gentleman with anal rectal cancer bleeding from such with a history of radiation treatment and increasing pain. Comes in today with weakness and severe hypotension. Blood pressures at home were reportedly 58 over 32. He responded moderately well to the 1st 2 L of fluid with blood pressure up as high is 90/60. Beginning to drift back down and at the end of 2 L is again down to 54/37. Labs are reviewed there is no evidence of infection, active bleeding, intracranial bleed. His lactic acid is elevated and I suspect that this is due to dehydration rather than sepsis. Creatinine is increased again presumably due to dehydration. Is minimally elevated with no complaints of chest pain and I suspect that that is a consequence of the slightly increased creatinine. In the past with significant hypotensive and weakness episodes issues have been volume rather than infection or other etiologies. Will infuse an additional 2 L of LR and will begin low-dose peripheral Levophed and continue to evaluate 7:22 blood pressures up to 112/62 after 3 L of fluid and minimal dose of Levophed currently running through large-bore peripheral line.. Patient has had wet brief but we have not yet been able to actually collect urine for urinalysis. At this time, he does seem to be responding to fluids without ob vious other abnormalities. I suspect that with continued fluids he will be able to wean off the Levophed within a few hours. If this reason at again after significant consideration central line is not placed. He will be admitted overnight for continued hydration and observation to make sure that he is not developing any additional complications. Care is reviewed with [facility] for admission. His large planned colon resection surgery for 02/[address] Varinder Whelan at [facility]. Will make sure he is aware of this current hospitalization. Discharge Plan Departure Patient Disposition: Admitted as Observation Clinical Impression: Acute dehydration, Acute renal insufficiency, Acute hypotension, Rectal cancer
[2021-02-14 18:23] LABS: COVID19 - ADMIT (NP swab/PCR) Negative (Negative)
[2021-02-14] MEDS: LACTATED RINGERS 1,000 ML 2000 ML IV (18:37)
[2021-02-14] MEDS: NOREPINEPHRINE 4 MG in DEXTROSE 5% IN WATER 250 ML 30.48 ML IV (18:38)
[2021-02-14 18:58] LABS: Reflexed Lactate in 2 Hours Y
[2021-02-14 19:31] LABS: Lactate 2HR (Lactic Acid Rflx) 2.8 mmol/L (0.7-2.1)
[2021-02-14] MEDS: HYDROCORTISONE 100 MG/2 ML VIAL IV (19:43)
[2021-02-14] MEDS: LACTATED RINGERS 1,000 ML 200 ML IV (20:10)
[2021-02-14] MEDS: ONDANSETRON 4 MG/2 ML INJ IV (20:41)
[2021-02-14] MEDS: fentaNYL 100 MCG/2 ML INJ (21:21)
--- NOTE | 2021-02-14 21:51 | DI.RAD.S_ITS ---
PROCEDURE: XR CHEST 1V INDICATIONS: central line placement TECHNIQUE: One view of the chest was acquired. COMPARISON: [facility], CR, XR CHEST 1V, 08/08/2020, 10:18. FINDINGS: Surgical changes and devices: Central venous line projects to the mid SVC via a right subclavian approach.. Lungs and pleura: Trace left-sided pleural fluid collection. Elevation of the left hemidiaphragm is stable. Streaky opacity noted in the left lung base likely represents atelectasis.. Mediastinum: Mediastinal contours appear normal. Heart size is normal. Bones and chest wall: No suspicious bony lesions. Overlying soft tissues appear unremarkable. IMPRESSION: Tip of central venous catheter projects over the mid SVC. Dictated by: Sammie Foster MD, PhD on 02/15/2021 at 6:55 Approved by: Sammie Foster MD, PhD on 02/15/2021 at 6:56
--- NOTE | 2021-02-14 21:53 | DI.RAD.S_ITS ---
PROCEDURE: XR KUB INDICATIONS: possible small bowel obstruction TECHNIQUE: One view of the abdomen acquired. COMPARISON: None. FINDINGS: Surgical changes and devices: None. Bowel: Bowel gas pattern is nonspecific. Soft tissues: No suspicious abdominal calcifications. Visualized solid organ contours appear normal in size. Bones: No suspicious bony lesions. IMPRESSION: Nonspecific bowel gas pattern without definite evidence of obstruction. If patient's symptoms persist or worsen, consider CT scan of the abdomen pelvis for further evaluation. Dictated by: Sammie Foster MD, PhD on 02/15/2021 at 6:53 Approved by: Sammie Foster MD, PhD on 02/15/2021 at 6:55
--- NOTE | 2021-02-14 22:15 | P.TELICUCN_ITS ---
History of Present Illness Consult details Chief complaint: Feeling Ill, worsening condition :: This patient was seen via real time interactive two-way audiovisual telecommunication. Narrative: 71 y.o. male w/ PMHx significant for anal squamous cell carcinoma s/p 5-FU, mitomycin and radiation and due to have surgery on 02/20 at [facility], hypothyroidism, renal cell carcinoma in 1995, C. difficile colitis, ulcerative colitis on prednisone 5 mg/day and obesity who presented with weakness. He had systolic hypotension in the 70s and was resuscitated with 2L of LR and 1 L of 0.9% NaCl. Nrepinephrine was started. Initial lactate was 2.4 with a normal WBC and no obvious sources of infection on body exam; pCXR official interpretation is pending but does not appear to have any marked infiltrate on my independent review. Patient did have a formed stool shortly after ICU arrival and has been nauseous; since then, he has has 2-3 soft frequent stools. However, clinic notes document diarrhea in the past. CVC was placed by general surgery and norepinephrine is infusing at 6-8 mcg/min. [facility] Medical History Acquired hypothyroidism Acute dehydration Acute hypokalemia Anal squamous cell carcinoma (~02/2020) Anemia (10/13/13) Bright red rectal bleeding C. 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 Syncope Ulcerative colitis Ventral hernia without obstruction or gangrene (08/07/16) Surgical History Fractures History of neck surgery (~2006) History of nephrectomy (~08/2015) History of third molar tooth extraction History of tonsillectomy (~1955) History of tonsillectomy (~1956) History of tonsillectomy (~1960) Status post colonoscopy Family History Mother Congestive heart failure Father Liver failure Alzheimer's dementia Social History household members: spouse Smoking Status: Former smoker alcohol intake: never Current Medications Current Medications Medications: Home Medications mesalamine 1.2 gram tablet,delayed release (Lialda) 1.2 g PO BID 09/30/18 [History Confirmed 09/15/20] levothyroxine 88 mcg tablet (Euthyrox) 88 mcg PO DAILY 03/24/20 [History Confirmed 09/15/20] prednisone 5 mg tablet 2.5 mg PO BID 04/18/20 [History Confirmed 09/15/20] magnesium chloride 64 mg (magnesium chloride) tablet,delayed release 64 mg PO DAILY #30 tab 09/06/20 [Rx Confirmed 09/15/20] miscellaneous medical supply #1 ea 10/02/20 [Rx Confirmed 10/02/20] oxycodone-acetaminophen 5 mg-325 mg tablet See Rx Instructions PO BEDTIME PRN #30 tab 10/03/20 [Rx] famciclovir 250 mg tablet See Rx Instructions .ROUTE .COMPLEX #180 tab 11/06/20 [Rx] gabapentin 100 mg capsule 100 mg PO .COMPLEX #150 cap MDD 500 02/08/21 [Rx] Visit Medications (administered) Generic Name Dose Route Start Last Admin Trade Name Freq PRN Reason Stop Dose Admin Norepinephrine Bitartrate 4 mg 254 mls @ 30.48 mls/hr 02/14/21 18:30 02/14/21 20:25 / Dextrose IV 6 mcg/min TITRATE JOY 22.86 mls/hr Titration Protocol 8 MCG/MIN Lactated Ringer's 1,000 mls @ 100 mls/hr 02/14/21 19:45 02/14/21 20:10 Lactated Ringers IV 200 mls/hr CONT JOY Administration Exam Vital Signs (past 8 hours): - 02/14/21 16:35 02/14/21 16:38 02/14/21 16:52 Temperature 97.3 F L Pulse Rate 84 96 H 92 H Respiratory Rate 18 24 24 Blood Pressure 77/53 L 77/53 L Pulse Oximetry 100 94 98 02/14/21 16:57 02/14/21 17:00 02/14/21 17:21 Temperature Pulse Rate 90 85 84 Respiratory Rate 20 23 25 H Blood Pressure 85/51 L 85/53 L 83/52 L Pulse Oximetry 100 100 98 02/14/21 17:30 02/14/21 17:34 02/14/21 17:40 Temperature Pulse Rate 80 80 80 Respiratory Rate 12 15 19 Blood Pressure 76/48 L 77/50 L 86/53 L Pulse Oximetry 96 97 99 02/14/21 17:50 02/14/21 18:00 02/14/21 18:09 Temperature Pulse Rate 80 84 86 Respiratory Rate 19 21 34 H Blood Pressure 84/54 L 74/43 L 73/45 L Pulse Oximetry 100 90 L 97 02/14/21 18:14 02/14/21 18:19 02/14/21 18:20 Temperature Pulse Rate 83 83 83 Respiratory Rate 17 29 H 31 H Blood Pressure 59/33 L 58/38 L 58/38 L Pulse Oximetry 98 98 99 02/14/21 18:21 02/14/21 18:22 02/14/21 18:25 Temperature Pulse Rate 84 83 80 Respiratory Rate 21 17 16 Blood Pressure 59/40 L 54/36 L 54/37 L Pulse Oximetry 98 97 97 02/14/21 18:26 02/14/21 18:27 02/14/21 18:30 Temperature Pulse Rate 81 79 72 Respiratory Rate 17 23 16 Blood Pressure 53/37 L 53/34 L 42/25 L Pulse Oximetry 96 96 95 02/14/21 18:35 02/14/21 18:40 02/14/21 18:45 Temperature Pulse Rate 70 72 71 Respiratory Rate 18 14 26 H Blood Pressure 47/32 L 57/36 L 82/46 L Pulse Oximetry 94 96 97 02/14/21 18:50 02/14/21 18:55 02/14/21 19:00 Temperature Pulse Rate 73 72 76 Respiratory Rate 12 34 H 25 H Blood Pressure 90/52 L 90/54 L 101/59 L Pulse Oximetry 97 96 98 02/14/21 19:05 02/14/21 19:10 02/14/21 19:15 Temperature Pulse Rate 75 76 79 Respiratory Rate 21 23 26 H Blood Pressure 109/61 112/64 105/63 Pulse Oximetry 100 100 98 02/14/21 19:20 02/14/21 19:25 02/14/21 19:30 Temperature Pulse Rate 78 78 79 Respiratory Rate 21 18 23 Blood Pressure 124/62 123/63 119/60 Pulse Oximetry 98 98 99 02/14/21 19:35 02/14/21 19:40 02/14/21 19:45 Temperature Pulse Rate 80 80 82 Respiratory Rate 20 24 27 H Blood Pressure 119/65 121/65 97/59 L Pulse Oximetry 100 99 97 02/14/21 20:21 02/14/21 21:03 02/14/21 22:02 Temperature 98.2 F Pulse Rate 75 76 69 Respiratory Rate 24 26 H 18 Blood Pressure 91/52 L 93/54 L 122/64 Pulse Oximetry 98 97 96 Oxygen Delivery Method Nasal Cannula Oxygen Flow Rate 2 Const General: cooperative, anxious and cushingoid Resp Effort & Inspection: normal respiratory effort GI Palpation: soft and other Other: non-tender Neuro General: patient alert, patient awake, patient oriented x3, tone normal and moves all extremities Objective Imaging Chest x-ray: My impression: Chronic left hemidiaphragmatic elevation with possible atelectasis/early infiltrate @ L base--otherwise fairly clear Labs Result Diagrams: 02/14/21 16:49 02/14/21 16:49 Labs: Laboratory Results - last 24 hr 02/14/21 02/14/21 02/14/21 16:49 16:49 16:49 WBC 7.2 RBC 3.59 L Hgb 9.5 L Hct 29.6 L MCV 82.3 MCH 26.5 MCHC 32.2 RDW 17.3 H Plt Count 229 Neut % (Auto) 97.4 H Lymph % (Auto) 1.1 L [place] % (Auto) 0.5 L Eos % (Auto) 0.6 L Baso % (Auto) 0.4 Neut # (Auto) 7000 Lymph # (Auto) 100 L Randall # (Auto) 0 Eos # (Auto) 0 Baso # (Auto) 0 Sodium 137 Potassium 3.5 Chloride 101 Carbon Dioxide 31 BUN 30 H Creatinine 1.62 H Estimated GFR 42.2 L BUN/Creatinine Ratio 18.5 Glucose 93 Lactate Calcium 9.2 Magnesium 1.5 L Total Bilirubin 0.3 AST 31 ALT 17 Alkaline Phosphatase 89 Troponin I 0.064 H Total Protein 6.3 Albumin 3.0 L Globulin 3.3 Albumin/Globulin Ratio 0.9 L Lipase 97 SARS-CoV-2 (PCR) 02/14/21 02/14/21 02/14/21 16:49 17:10 19:13 WBC RBC Hgb Hct MCV MCH MCHC RDW Plt Count Neut % (Auto) Lymph % (Auto) [place] % (Auto) Eos % (Auto) Baso % (Auto) Neut # (Auto) Lymph # (Auto) [place] # (Auto) Eos # (Auto) Baso # (Auto) Sodium Potassium Chloride Carbon Dioxide BUN Creatinine Estimated GFR BUN/Creatinine Ratio Glucose Lactate 2.4 H 2.8 H Calcium Magnesium Total Bilirubin AST ALT Alkaline Phosphatase Troponin I Total Protein Albumin Globulin Albumin/Globulin Ratio Lipase SARS-CoV-2 (PCR) Negative Assessment & Plan Assessment and plan (1) Shock: Status: Acute Plan: UNCLEAR WHETHER THIS IS SEPTIC OR HYPOVOLEMIC -Continue norepinephrine/IVF -OK to use R subclavian CVC-pCXR independently reviewed -Given chronic steroid use, would add hydrocortisone 50 mg IV v2E--ogd received 100 mg in the ED--watch glycemic control on this -Blood cultures performed in ED--would cover empirically with GI antibiotics pendng final cultue data (ie. Zosyn or fluoroquinolone/metronidazole) -Consider procalcitonin check GFR improves -Trend hyperlactatemia until resolution (2) Anal squamous cell carcinoma: Status: Acute Plan: -Follow (3) Chronic adrenal insufficiency: Status: Chronic Plan: -see shock (4) Acquired hypothyroidism: Status: Chronic Plan: -Continue levothyroxine (5) Acute kidney injury superimposed on CKD: Status: Acute Plan: -Continue resuscitation as per shock --> tren (6) H/O Clostridium difficile infection: Status: Acute Plan: -Check C. diff -Attempt to avoid PPI; recommend H2 antagonists for stress ulcer prophylaxis -De-escalate or discontinue antibiotics MEAGHAN (7) Troponin level elevated: Status: Acute Plan: -Probably due to shock; trend Time Spent With Patient Critical Care time: I spent a total of 40 minutes of critical care time on this patient's care today; this time is exclusive of procedural time.
[2021-02-14 22:19] LABS: Bacteria Urine None Seen
[2021-02-14 22:22] LABS: Appearance Urine UA CLOUDY; Bilirubin Urine UA NEGATIVE (NEGATIVE); Color Urine UA YELLOW; Glucose Urine UA TRACE g/dL (Negative); Ketones Urine UA NEGATIVE (NEGATIVE); Leukocyte Esterase Urine UA 2+ (NEGATIVE); Nitrite Urine UA NEGATIVE (Negative); Occult Blood Urine UA TRACE-INTACT (Negative); Protein Urine UA 2+ (Negative); Urobilinogen Urine UA 0.2 E.U./dL (0.2)
[2021-02-14] MEDS: CIPROFLOXACIN 400 MG/200 ML PIGGYBACK 200 MG IV (22:25)
[2021-02-14] MEDS: PANTOPRAZOLE 40 MG VIAL IV (22:25)
[2021-02-14] MEDS: CALCIUM CARBONATE 500 MG TAB 1000 MG PO (22:25)
[2021-02-14 22:31] LABS: Culture Indicated Urine Specimen Cultured; Mucus Urine 1+ (Negative); RBC Urine 1-5/HPF (0-5/HPF); Renal Epithelial Cells Urine 1-5/HPF (0-1/HPF); Squamous Epithelial Cell Urine None Seen (0-5/HPF); WBC Urine 30-100/HPF (0-5/HPF)
[2021-02-14] MEDS: HEPARIN 5,000 UNIT/ML VIAL 5000 UNIT SUBCUT (22:44)
[2021-02-14] MEDS: metroNIDAZOLE 500 MG/100 ML PIGGYBACK 100 MG IV (22:50)
[2021-02-14] MEDS: MAGNESIUM SULFATE 2 GM/50 ML PIGGYBACK IV (23:35)
[2021-02-14] MEDS: HYDROCORTISONE 100 MG/2 ML VIAL 50 MG IV (23:35)
[2021-02-14 23:39] LABS: Clostridium Difficile Tox PCR Positive for C. diff (Negative)
[2021-02-15] VITALS (36 sets, daily range): BP systolic 92–129; BP diastolic 51–70; PULSE 61–84; RESP 9–26; TEMP 36.1–36.6; O2SAT 90–100
--- NOTE | 2021-02-15 02:45 | PM.HP.1 ---
History of Present Illness History of Present Illness Date Patient Seen: 02/14/21 Time Patient Seen: 20:43 Chief complaint: Feeling Ill, worsening condition Narrative: Mr. Aleksandar Bay is a 70-year-old male with past medical history significant for squamous cell carcinoma of the anus, renal cell carcinoma status post nephrectomy, ulcerative colitis, adrenal insufficiency secondary to predisone, hypothyroidism, history of C diff, chronic renal failure, who presented to the ED today for increase in his crampy abd pain from his baseline from renal cancer, orthostatic dizziness, peroneal irritation, weakness, nausea, with retching with nothing in his stomach to vomit which developed today. The patient completed chemo and radiation tx 07/2019 for anal cancer (chemotherapy with 5 FU and mitomycin-C). Patient's PCP Dr. Collins, Dr. Quan oncologist, and Dr. Whelan Surgeon. Patient denies complaints of fevers or chills, flu or cold symptoms and has had no COVID-19 exposures. He is complaining of severe acute onset heartburn following large does steroids provided in ED. He denies complaints of chest pain or palpitations, shortness of breath cough or wheezing. The patient denies urinary symptoms. He is scheduled for resection with colostomy and plastics revision on 02/20 at [facility] by Dr. Whelan. He has had very little intake, not eating or drinking well, unable to describe duration. Patient reported in ED no diarrhea recently, immediately after admit to the ICU patient had formed brown stool negative for blood, but then quickly developed multiple episodes of diarrhea. Patient's vitals upon admit patient was hypotensive in septic shock, tachypneic, in acute respiratory failure temp was 97.3?, BP in 61/44, HR 82, RR 27, O2 saturation 97% on 2 L nasal cannula. Patient was placed on Levophed drip in the ED, 60 minute critical care bedside ICU admit in addition to tele ICU consult:Dr. Flaherty. Dr. Mclaughlin and Dr. Middleton consulted- Dr. Middleton placed right subclavian central line. Patient received 2 L of LR/2 L NS in ED, LR @200cc/hr, 100mg hydrocortisone IV stress dose. Titrated Levophed up to 10 mcg BP improved to 123/55 and patient stablized. Patient's continued complaint was severe acid reflux, nausea and retching with the inability to produce vomit and mutile uncontrollable bouts of diarrhea. Patient demonstrated some mild anemia chronic anemia HGB 9.5, HCT 29.6. MCV and platelets WNL. Without WBC or neutrophil elevation. BUN 30, creatinine 1.62 up from 1.2, GFR 42.2 down from 59.3, lactate 2.8, albumin 3.0, hypomagnesium 1.5, lipase WNL. Sofa score:6. Patient's EKG demonstrated normal sinus rhythm, ventricular rate of 84, but with low-voltage QRS 78, possibly suggestive of septal infarct, patient's initial troponin 0.064, heart score:6. Patient placed on tele and demonstrated consistent normal sinus rhythm. Patient denies chest pain, shortness of breath, diaphoresis at this time. Patient admitted for sepsis with septic shock, acute respiratory failure, hypovolemia, in the setting of anal squamous cell cancer. Patient History Medical History (Updated 02/15/21 @ 03:41 by CRISTOBAL Viera-) Acquired hypothyroidism Acute dehydration Acute hypokalemia Anal squamous cell carcinoma (~02/2020) Anemia (10/13/13) Bright red rectal bleeding C. 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 Syncope Ulcerative colitis Ventral hernia without obstruction or gangrene (08/07/16) Surgical History Fractures History of neck surgery (~2006) History of nephrectomy (~08/2015) History of third molar tooth extraction History of tonsillectomy (~1955) History of tonsillectomy (~1956) History of tonsillectomy (~1959) Status post colonoscopy Family & Social History Family History Mother Congestive heart failure Father Liver failure Alzheimer's dementia Social History: household members spouse Safety & Behavioral: Feels Safe in Current Yes Environment Been Physically Hurt or No Threatened By a Person Suicidal Ideation Description None Suicide Plan Description No Plan Tobacco & Substance use: Smoking Status Former smoker alcohol intake never alcohol intake frequency holiday/special occasion Substance Use Type does not use Meds Home Medications and Allergies Home Medications Medication Instructions Recorded Confirmed Type mesalamine 1.2 gram tablet,delayed 1.2 g PO BID 09/30/18 02/14/21 History release (Lialda) levothyroxine 88 mcg tablet 88 mcg PO DAILY 03/24/20 02/14/21 History (Euthyrox) prednisone 5 mg tablet 2.5 mg PO BID 04/18/20 02/14/21 History magnesium chloride 64 mg 64 mg PO DAILY #30 tab 09/06/20 02/14/21 Rx (magnesium chloride) tablet,delayed release miscellaneous medical supply #1 ea 10/02/20 02/14/21 Rx oxycodone-acetaminophen 5 mg-325 See Rx Instructions PO BEDTIME PRN 10/03/20 02/14/21 Rx mg tablet #30 tab famciclovir 250 mg tablet See Rx Instructions .ROUTE 11/06/20 02/14/21 Rx .COMPLEX #180 tab gabapentin 100 mg capsule 100 mg PO .COMPLEX #150 cap MDD 500 02/08/21 02/14/21 Rx Allergies Allergy/AdvReac Type Severity Reaction Status Date / Time cefazolin [CEFAZOLIN] Allergy Severe rash Verified 09/15/20 11:24 levofloxacin [From LEVAQUIN] Allergy Mild Verified 09/15/20 11:24 morphine [MORPHINE] Allergy Mild STOPPED Verified 09/15/20 11:24 BREATHING. Review of Systems Review of Systems Narrative: All 12 point systems reviewed with the patient and are negative except otherwise documented. Exam Vital Signs (past 8 hours): - 02/14/21 18:50 02/14/21 18:55 02/14/21 19:00 Temperature Pulse Rate 73 72 76 Respiratory Rate 12 34 H 25 H Blood Pressure 90/52 L 90/54 L 101/59 L Pulse Oximetry 97 96 98 02/14/21 19:05 02/14/21 19:10 02/14/21 19:15 Temperature Pulse Rate 75 76 79 Respiratory Rate 21 23 26 H Blood Pressure 109/61 112/64 105/63 Pulse Oximetry 100 100 98 02/14/21 19:20 02/14/21 19:25 02/14/21 19:30 Temperature Pulse Rate 78 78 79 Respiratory Rate 21 18 23 Blood Pressure 124/62 123/63 119/60 Pulse Oximetry 98 98 99 02/14/21 19:35 02/14/21 19:40 02/14/21 19:45 Temperature Pulse Rate 80 80 82 Respiratory Rate 20 24 27 H Blood Pressure 119/65 121/65 97/59 L Pulse Oximetry 100 99 97 02/14/21 19:55 02/14/21 19:59 02/14/21 20:00 Temperature Pulse Rate 83 85 Respiratory Rate 28 H 34 H Blood Pressure 95/59 L 94/61 Pulse Oximetry 98 100 02/14/21 20:21 02/14/21 20:26 02/14/21 20:30 Temperature 98.2 F Pulse Rate 79 79 77 Respiratory Rate 22 26 H 30 H Blood Pressure 61/44 L 70/49 L Pulse Oximetry 100 99 95 02/14/21 20:31 02/14/21 20:40 02/14/21 20:50 Temperature Pulse Rate 78 75 75 Respiratory Rate 23 26 H 28 H Blood Pressure 74/48 L 91/52 L 82/53 L Pulse Oximetry 100 100 98 02/14/21 21:00 02/14/21 21:03 02/14/21 21:10 Temperature Pulse Rate 75 76 78 Respiratory Rate 26 H 26 H Blood Pressure 93/54 L 93/54 L 105/59 L Pulse Oximetry 96 97 96 02/14/21 21:20 02/14/21 21:30 02/14/21 21:31 Temperature Pulse Rate 75 73 73 Respiratory Rate Blood Pressure 89/50 L 83/58 L Pulse Oximetry 99 97 96 02/14/21 21:40 02/14/21 21:50 02/14/21 22:00 Temperature Pulse Rate 78 75 74 Respiratory Rate 33 H 21 24 Blood Pressure 122/65 126/71 122/64 Pulse Oximetry 95 98 95 02/14/21 22:02 02/14/21 22:10 02/14/21 22:20 Temperature Pulse Rate 69 75 74 Respiratory Rate 18 20 22 Blood Pressure 122/64 130/75 120/68 Pulse Oximetry 96 97 96 02/14/21 22:30 02/14/21 22:40 02/14/21 22:50 Temperature Pulse Rate 74 72 75 Respiratory Rate 24 22 23 Blood Pressure 125/57 L 130/68 129/69 Pulse Oximetry 96 93 95 02/14/21 22:54 02/14/21 23:00 02/14/21 23:10 Temperature 98.3 F Pulse Rate 69 71 70 Respiratory Rate 18 22 20 Blood Pressure 129/69 121/67 126/68 Pulse Oximetry 95 95 96 02/14/21 23:20 02/14/21 23:30 02/14/21 23:40 Temperature Pulse Rate 69 69 69 Respiratory Rate 20 20 20 Blood Pressure 125/69 129/71 113/63 Pulse Oximetry 96 96 95 02/14/21 23:50 02/15/21 00:00 02/15/21 00:10 Temperature Pulse Rate 67 70 73 Respiratory Rate 20 21 18 Blood Pressure 115/63 113/63 124/67 Pulse Oximetry 97 90 L 97 02/15/21 00:20 02/15/21 00:29 02/15/21 00:30 Temperature 97.9 F Pulse Rate 66 65 Respiratory Rate 17 15 Blood Pressure 115/63 112/62 Pulse Oximetry 98 97 02/15/21 00:40 02/15/21 00:50 02/15/21 01:00 Temperature Pulse Rate 65 66 66 Respiratory Rate 15 10 L 9 L Blood Pressure 110/60 109/60 111/61 Pulse Oximetry 98 98 98 02/15/21 01:10 02/15/21 01:20 02/15/21 01:30 Temperature Pulse Rate 72 70 67 Respiratory Rate 16 18 18 Blood Pressure 127/69 118/58 L 110/53 L Pulse Oximetry 96 97 97 02/15/21 01:40 02/15/21 01:50 02/15/21 02:00 Temperature Pulse Rate 65 64 64 Respiratory Rate 18 26 H 19 Blood Pressure 107/55 L 104/58 L 112/57 L Pulse Oximetry 97 96 95 Oxygen Delivery Method Nasal Cannula Oxygen Flow Rate 2 Narrative Exam Narrative: General: Patient is a well-developed, well-nourished delightful male, pale in distress and ill appearing at this time, though stable. HEENT: Normocephalic, atraumatic, extraocular muscles intact, oral pharynx is clear and mucous membranes are moist. Neck is supple and symmetric, trachea is midline, no adenopathy, no thyroid enlargement, nontender, no masses palpated. Negative for JVD Chest: Normal AP diameter and contour without kyphoscoliosis, no nasal flaring, labored, work of breathing, or retractions, mildly tachypneic Lungs: Auscultation of all lung garcia are clear without adventitious sounds, wheezes, rhonchi, or rales. Cardio: regular rate and rhythm without murmur, rubs, or gallops, no carotid bruit, no cardiac pulsations present. Abdomen: Soft distended (pt reports baseline) diffusely tender to plapation, no obvious organomegaly, or masses difficult to plapate. Bowel sounds are present in all 4 quadrants (hypoactive in rt upper, hyperactive in all others without guarding or rebound, no CVA tenderness. Patient experiences severe rectal and abd pain with diarrhea. Patient having active bouts of diarrhea during admit exam. Musculoskeletal: Muscle strength and tone are equal within normal limits, no deformity, crepitus, effusions, cyanosis, clubbing or edema present. Full range of motion intact radial and pedal pulses are normal. Skin: Pale, Warm dry and intact without rashes, ulcerations or petechiae. No diaphoresis Neuro: Alert and orientated x3, strength appears +5/5 in all extremities- although generalized weakness, sensation to touch intact, no gross deficits noted of cranial nerves. Psych: Patient has a well-kept appearance, appropriate affect, mental status attitude thought context and judgment are appropriate for age. Objective Labs Result Diagrams: 02/14/21 16:49 02/14/21 16:49 Labs: Laboratory Results - last 24 hr 02/14/21 02/14/21 02/14/21 16:49 16:49 16:49 WBC 7.2 RBC 3.59 L Hgb 9.5 L Hct 29.6 L MCV 82.3 MCH 26.5 MCHC 32.2 RDW 17.3 H Plt Count 229 Neut % (Auto) 97.4 H Lymph % (Auto) 1.1 L Dickey % (Auto) 0.5 L Eos % (Auto) 0.6 L Baso % (Auto) 0.4 Neut # (Auto) 7000 Lymph # (Auto) 100 L Dickey # (Auto) 0 Eos # (Auto) 0 Baso # (Auto) 0 Sodium 137 Potassium 3.5 Chloride 101 Carbon Dioxide 31 BUN 30 H Creatinine 1.62 H Estimated GFR 42.2 L BUN/Creatinine Ratio 18.5 Glucose 93 Lactate Calcium 9.2 Magnesium 1.5 L Total Bilirubin 0.3 AST 31 ALT 17 Alkaline Phosphatase 89 Troponin I 0.064 H Total Protein 6.3 Albumin 3.0 L Globulin 3.3 Albumin/Globulin Ratio 0.9 L Lipase 97 Urine Color Urine Appearance Urine pH Ur Specific Reed Urine Protein Urine Glucose (UA) Urine Ketones Urine Occult Blood Urine Nitrate Urine Bilirubin Urine Urobilinogen Ur Leukocyte Esterase Urine RBC Urine WBC Ur Squamous Epith Cells Ur Renal Epithelial Cell Urine Bacteria Urine Mucus Ur Culture Indicated? Nasal Screen MRSA (PCR) C. difficile Tox (PCR) SARS-CoV-2 (PCR) 02/14/21 02/14/21 02/14/21 16:49 17:10 19:13 WBC RBC Hgb Hct MCV MCH MCHC RDW Plt Count Neut % (Auto) Lymph % (Auto) Dickey % (Auto) Eos % (Auto) Baso % (Auto) Neut # (Auto) Lymph # (Auto) Dickey # (Auto) Eos # (Auto) Baso # (Auto) Sodium Potassium Chloride Carbon Dioxide BUN Creatinine Estimated GFR BUN/Creatinine Ratio Glucose Lactate 2.4 H 2.8 H Calcium Magnesium Total Bilirubin AST ALT Alkaline Phosphatase Troponin I Total Protein Albumin Globulin Albumin/Globulin Ratio Lipase Urine Color Urine Appearance Urine pH Ur Specific Reed Urine Protein Urine Glucose (UA) Urine Ketones Urine Occult Blood Urine Nitrate Urine Bilirubin Urine Urobilinogen Ur Leukocyte Esterase Urine RBC Urine WBC Ur Squamous Epith Cells Ur Renal Epithelial Cell Urine Bacteria Urine Mucus Ur Culture Indicated? Nasal Screen MRSA (PCR) C. difficile Tox (PCR) SARS-CoV-2 (PCR) Negative 02/14/21 02/14/21 02/14/21 19:45 22:15 22:15 WBC RBC Hgb Hct MCV MCH MCHC RDW Plt Count Neut % (Auto) Lymph % (Auto) Dickey % (Auto) Eos % (Auto) Baso % (Auto) Neut # (Auto) Lymph # (Auto) Dickey # (Auto) Eos # (Auto) Baso # (Auto) Sodium Potassium Chloride Carbon Dioxide BUN Creatinine Estimated GFR BUN/Creatinine Ratio Glucose Lactate Calcium Magnesium Total Bilirubin AST ALT Alkaline Phosphatase Troponin I Total Protein Albumin Globulin Albumin/Globulin Ratio Lipase Urine Color Yellow Urine Appearance Cloudy Urine pH 5.0 Ur Specific Reed 1.020 Urine Protein 2+ H Urine Glucose (UA) Trace H Urine Ketones Negative Urine Occult Blood Trace-intact Urine Nitrate Negative Urine Bilirubin Negative Urine Urobilinogen 0.2 Ur Leukocyte Esterase 2+ H Urine RBC 1-5/hpf Urine WBC 30-100/hpf H Ur Squamous Epith Cells None seen Ur Renal Epithelial Cell 1-5/hpf H Urine Bacteria None seen Urine Mucus 1+ H Ur Culture Indicated? Specimen cultured Nasal Screen MRSA (PCR) Negative for mrsa C. difficile Tox (PCR) Positive for c. diff H SARS-CoV-2 (PCR) Assessment & Plan Assessment & Plan narrative: Mr. Aleksandar Bay is a 70-year-old male with past medical history significant for squamous cell carcinoma of the anus, renal cell carcinoma status post nephrectomy, ulcerative colitis, adrenal insufficiency secondary to predisone, hypothyroidism, history of C diff, chronic renal failure, who presented to the ED today for increase in his crampy abd pain from his baseline from renal cancer, orthostatic dizziness, peroneal irritation, weakness, nausea, with retching. Admitted for sepsis with septic shock, acute respiratory failure, hypovolemia, in the setting of anal squamous cell cancer. 1. Sepsis with septic shock, infectious vs hypovolemic, with ANA in the setting of CKD stage G3a, and acute respiratory failure, acute hypovolemia, in the setting of squamous cell cancer of the rectum, acute on chronic, present on admission -temp was 97.3?, BP in 61/44, HR 82, RR 27, O2 saturation 97% on 2 L nasal cannula. - BUN 30, creatinine 1.62 up from 1.2, GFR 42.2 down from 59.3, lactate 2.8, albumin 3.0, hypomagnesium 1.5, lipase WNL. Sofa score:6. Without WBC or neutrophil elevation. -CKD [id number] consistently<60 since 05/2020-status post radical nephrectomy for renal cell cancer, avoid renal toxic agents and renally dose medications as indicated. -Critical care bedside (60min)ICU admit -Consults:Dr. Flaherty.(tele-ICU) Dr. Mclaughlin anesthesiology, Dr. Middleton general surgery- Dr. Middleton placed right subclavian central line. -Continue Levophed drip Sepsis Protocol bundle in ED, Patient received 2 L of LR/2 L NS. -patient has a note in previous history of heart failure will be cautiously with continued rehydration -will stop fluids once patient is tappered off Levophed drip. Monitor for fluid overload, pulmonary edema. -Rule out causes shock and loss gastrointestinal, renal, skin, hemorrhage, 3rd space loss, causes infection, hypovolemia, or due to cancer progression. -Monitor inflammatory markers, airway, antiemetics for nausea and vomiting, hold diuretics possibly, monitor for bleeding, consider electrolyte imbalance (K, Na, acid-base balance) estimate pre post fluid deficit body weight: Blood pressure, JVD,urine output, lactate, calcium, sodium, H&H, arrhythmia, decrease left ventricular contractility, impaired response to catecholamine/ vasopressors, increasing pCO2. -patient admitted to the ICU, placed on telemetry, vital signs Q hour until patient is hemodynamically stable, and may progress to q.4 hours, I&O Q shift, map goal > 65, urinary output > 50cc/hr, weights daily, diet:clear liquids progress as tolerated to regular diet. BS check Q6 while on clear liquids, stop once eating. -Once IV protonix 40mg Given for acid reflux from steroid dose- continue Pepcid AC p.o. q.day [id number] instead of PPI due to risk of C diff recurrence. -initial prophylactic antibiotic several 400 mg q.12/Flagyl 500 mg Q 8 for intra-abdominal infection -rule out infection blood cultures in ED, UA and culture ordered, C diff PCR ordered, KUB to rule out SBO, hemoccult r/o GI bleed, CXR-verify central line placement, r/o Resp infection. -orthostatics Q shift while awake 2. Elevated troponin, acute, likely secondary to sepsis/septic shock/ANA, present on admission -EKG demonstrated normal sinus rhythm, ventricular rate of 84, but with low-voltage QRS 78, possibly suggestive of septal infarct, patient's initial troponin 0.064, heart score:6. Will trend troponin. Patient continues to deny chest pain, shortness of breath, diaphoresis-stable. -heparin 500 units b.i.d.-avoid Lovenox use in CKD/ANA -patient monitored on telemedicine/tele ICU intensivists 3. Hypomagnesium, acute, present on admission -magnesium 1.5 -2 g IV rider provided, continue to monitor electrolyte levels, and cardiac irritability -once patient taking orals-continue patient's magnesium chloride 64 mg 4. Mild anemia acute on chronic, present on admission -HGB 9.5, HCT 29.6. MCV and platelets WNL. -monitor hematology -Hemoccult negative 5. Squamous cell cancer of the Rectum, acute on chronic, present on admission -managed by Dr. Quan Oncology -scheduled for resection with colostomy and plastics revision on 02/20 at [facility] by Dr. Whelan surgeon. -rectal lesion was identified on April 11, 2020 during colonoscopy performed due to blood in the stool. -patient received 5 FU and mitomycin-C the infusion pump, chemotherapy and radiation therapy completed 07/2019 -once patient is taking orals continue gabapentin and oxycodone for related pain management 6. 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 -due to severe illness patient was given 100 mg cortisol dose in ED and will receive 50 mg IV q.6 hours times 24 hours, recommend that be followed by tapering. -tapering: Decrease by 10mg Qday: Day 1-140 mg, day 2 130 mg, add daily 3 120 mg, day 4 110 mg, etc- Monitor & patient teaching regarding adrenal crisis-as tapering may need to be slowed. -Am Cortisol ordered- Monitor for [place]'s 7. Chronic diastolic Heart failure with preserved ejection fraction, chronic, stable, present on admission -echocardiogram completed on 06/06/2020: Normal LV size; proximal septal thickening noted. There is LVOT obstruction during Valsalva with peak velocity of 3.1 m/sec and peak gradient of 38 mm Hg. Rest V max is 1 m/sec and peak gradient of 10 mm Hg. EF is 60-65%. -chest x-ray completed- finds no acute cardiopulmonary findings including cardiomegaly or pulmonary edema. -will stop fluids once patient tapered off Levophed drip. -AM ProBNP 8. HSV infection, chronic, present on admission -patient takes famciclovir 250 mg twice daily which is not available through the hospital pharmacy. Holding meds at this time once eating Order acyclovir 400 mg twice daily for substitution. 9. GERD, acute on chronic, present on admission -Once IV protonix 40mg Given for acid reflux from steroid dose -continue Pepcid AC p.o. q.day [id number] instead of PPI due to risk of C diff recurrence. 10. Hypothyroidism, chronic, present on admission -will continue home regimen of levothyroxine 88 mcg daily. -Am TSH ordered 11. Ulcerative Colitis, chronic, present on admission --HGB 9.5, HCT 29.6. MCV and platelets WNL. -Hemoccult negative -will continue home medications of mesalamine and prednisone. Once patient is tolerating orals. Code status:Full code Surrogate decision maker: Elizabeth Michaelhakeem COVID PCR: Negative COVID vaccination: Unknown DVT/VTE prophylaxis: Heparin 5000 units b.i.d. and SCDs Disposition: Estimated length of stay greater than 2 midnights. I have utilized all available immediate resources to obtain, update, or review the patient's current medications. I confirmed that the patient's advanced care plan is present, Code status is documented and/or surrogate decision maker is listed in the patient's medical record. Scores GCS Toni coma scale eye opening: Spontaneous [place] coma scale verbal response: Orientated [place] coma scale motor response: Obey commands [place] coma scale total score: 15 Quality VTE Deep Vein Thrombosis/Pulmonary Embolism Present on Admission: No
[2021-02-15] MEDS: VANCOMYCIN 2,000 MG/400 ML PIGGYBACK 200 MG IV (03:35)
[2021-02-15] MEDS: ACETAMINOPHEN 325 MG TABLET 650 MG PO (03:46)
[2021-02-15 05:05] LABS: Add Manual Diff / Slide Review NO; Basophils Absolute Auto 100 /uL (0-100); Basophils Percent Auto 0.5 % (0-2); Eosinophils Absolute Auto 0 /uL (0-450); Eosinophils Percent Auto 0.1 % (2-4); Hematocrit 25.9 % (41-53); Hemoglobin 8.3 g/dL (13.5-17.5); Lymphocytes Absolute Auto 200 /uL (1100-4500); Mean Corpuscular Hemoglobin 26.4 PG (26-34); Mean Corpuscular Volume 82.4 fL (80-100); Monocytes Absolute Auto 400 /uL (0-900); Monocytes Percent Auto 2.5 % (3-14); Neutrophils Absolute Auto 14400 /uL (1500-7000); Neutrophils Percent Auto 95.9 % (50-75); Platelet Count 196 X10^3/uL (150-400); Red Blood Cell Count 3.15 X10^6/uL (4.5-5.9); Red Cell Distribution Width 17.7 % (11.6-14.8)
[2021-02-15] MEDS: HYDROCORTISONE 100 MG/2 ML VIAL 50 MG IV (05:07)
[2021-02-15 05:24] LABS: Alanine Aminotransferase 16 IU/L (<50); Albumin 2.7 g/dL (3.5-5.0); Albumin Globulin Ratio 0.8 (1.0-2.8); Alkaline Phosphatase 64 U/L (38-126); Aspartate Aminotransferase 25 IU/L (17-59); BUN Creatinine Ratio 18.6 (6-22); Bilirubin Total 0.2 mg/dL (0.2-1.3); Blood Urea Nitrogen 30 mg/dL (9-20); Calcium 8.6 mg/dL (8.4-10.2); Carbon Dioxide 26 mmol/L (22-32); Chloride 106 mmol/L (98-107); Estimated Glomerular Filt Rate 42.5 mL/min (>60); Globulin 3.3 g/dL (1.7-4.1); Glucose 113 mg/dL (80-110); HEMOLYSIS < 15 (0-50); Lactate (Lactic Acid) 0.9 mmol/L (0.7-2.1); Magnesium 2.1 mg/dL (1.6-2.3); Potassium 4.7 mmol/L (3.4-5.1); Sodium 135 mmol/L (137-145)
[2021-02-15 05:36] LABS: NT-proBNP (BNP-Adult 18+) 6110 pg/mL (<125)
[2021-02-15 05:40] LABS: Procalcitonin 99.6 ng/mL (<0.5); Troponin I 0.379 ng/mL (0.01-0.034)
--- NOTE | 2021-02-15 05:46 | DI.ECHO.S_ITS ---
[facility] +---------+ : : [address] : [address] : : : : [id number] : : : : Phone: [phone] Echocardiogram Report + + :Name: SUNDEEP SU Study Date: 02/15/2021 Height: 72 in : :[facility] ReadingLocation: Weight: 250 lb : : Gender: Male BSA: 2.3 m2 : :: 1950 Age: 71 yrs BP: 125/67 mmHg: :Reason For Study: Elevated Troponin : :Ordering Physician: PRECIOUS, : :TO Performed By: Maxime Brandt : :Referring: TO LANG : + + Interpretation Summary 1) Normal left ventricular thickness, size,, and systolic function (EF 60- 65%). 2) There are no obvious focal wall motion abnormalities noted but poor endocardial definition reduces the sensitivity for the detection of such. 3) Upper normal right ventricular size with normal function. 4) No significant valvular abnormalities. 5) The ascending aorta is at the upper limits of normal in size. 6) Compared to the Echo done 06/06/2020, no significant change. Procedure: A two-dimensional transthoracic echocardiogram with color flow and Doppler was performed. The study quality was technically adequate. Comparison is made with the echocardiogram of 06/06/2020. The patient was in sinus rhythm with heart rates between 71-94 bpm during the exam. Left Ventricle: The left ventricle is normal in size and wall thickness. Proximal septal thickening is noted. There is no echo evidence for significant left ventricular outflow tract obstruction at rest. Left ventricular systolic function is normal. The ejection fraction is estimated to be 60-65%. There are no obvious focal wall motion abnormalities noted but poor endocardial definition reduces the sensitivity for the detection of such. Diastolic function could not be accurately assessed due to unobtainable data. Right Ventricle: The right ventricle is at the upper limits of normal in size. The right ventricular systolic function is normal. Atria: Both atria are normal in size. There is no Doppler evidence for an interatrial shunt. Mitral Valve: There is systolic anterior motion of the chordal apparatus. There is mild mitral regurgitation. Aortic Valve: The aortic valve is normal in structure and function. There is no aortic valve stenosis. There is trace aortic regurgitation. Tricuspid Valve: The tricuspid valve is normal in structure and function. No tricuspid regurgitation. Pulmonary artery pressures cannot be estimated because of the lack of a measurable TR jet velocity but the IVC suggests a CVP of around 3 mmHg. Pulmonic Valve: The pulmonic valve is normal in structure and function. There is a trace or physiologic amount of pulmonic regurgitation. Great Vessels: The aortic root is normal size. The ascending aorta is at the upper limits of normal in size. The IVC is of normal diameter and collapses greater than 50% with a sniff. This suggests a low right atrial pressure of 3 mm Hg. Pericardium/ Pleura There is no pericardial effusion. MMode/2D Measurements & Calculations LVIDd: 5.2 cm LVOT diam: 2.1 cm LVIDs: 3.2 cm Ao root diam: 3.9 cm FS: 38.5 % asc Aorta Diam: 4.0 cm IVSd: 0.90 cm LVPWd: 1.0 cm LV verde. diameter/BSA (cm/m^2): 2.2 LV sys. diameter/BSA (cm/m^2): 1.4 LA dimension: 3.4 cm RA long axis: 4.6 cm LA A2 area: 16.6 cm2 IVC diam: 2.0 cm LA A4 area: 22.4 cm2 LA length (vol): 4.5 cm LA vol: 69.8 ml LA vol index: 29.8 ml/m2 TAPSE_phl: 2.3 cm Doppler Measurements & Calculations Ao V2 max: 172.0 cm/sec MV E max oswaldo: 99.4 cm/sec Ao V2 mean: 135.0 cm/sec MV A max oswaldo: 66.8 cm/sec Ao max P.0 mmHg MV E/A: 1.5 Ao mean P.0 mmHg Med Peak E' Oswaldo: 5.7 cm/sec Ao V2 VTI: 42.9 cm E/E' med: 17.4 Lat Peak E' Oswaldo: 6.9 cm/sec E/E' lat: 14.5 E/e' average: 15.9 MV dec time: 0.15 sec PA pr(Accel): 45.7 mmHg MV P1/2t-pr_phl: 45.0 msec Reading Physician:10:43 AM
[2021-02-15 05:57] LABS: TSH w/ Reflex to FT4 0.62 uIU/mL (0.47-4.68)
[2021-02-15 07:13] LABS: Cortisol AM (Before 10AM) 30.7 ug/dL (4.46-22.7)
[2021-02-15] MEDS: VANCOMYCIN 125 MG CAPSULE PO ×3 (08:30→20:28)
[2021-02-15 09:06] LABS: Troponin I 0.394 ng/mL (0.01-0.034)
--- NOTE | 2021-02-15 13:00 | P.PN_ITS ---
Subjective Subjective Date Patient Seen: 02/15/21 Time Patient Seen: 13:00 Interval history: Feels well today, denies abdominal pain. Had a few loose bowel movements this morning which have now stopped. Exam Vital Signs (past 8 hours): - 02/15/21 05:30 02/15/21 05:57 02/15/21 06:33 Temperature 97.9 F Pulse Rate 61 65 61 Respiratory Rate 14 14 14 Blood Pressure 102/56 L 96/54 L 111/60 Pulse Oximetry 99 94 99 02/15/21 08:00 02/15/21 10:00 Temperature 97 F L 97.2 F L Pulse Rate 62 84 Respiratory Rate 17 15 Blood Pressure 104/62 98/51 L Pulse Oximetry 100 98 Oxygen Delivery Method Nasal Cannula Oxygen Flow Rate 2 Narrative Exam Narrative: General: Patient is a well-developed, well-nourished delightful male, pale in distress and ill appearing at this time, though stable. HEENT: Normocephalic, atraumatic, extraocular muscles intact, oral pharynx is c lear and mucous membranes are moist. Neck is supple and symmetric, trachea is midline, no adenopathy, no thyroid enlargement, nontender, no masses palpated. Negative for JVD Chest: Normal AP diameter and contour without kyphoscoliosis, no nasal flaring, labored, work of breathing, or retractions, mildly tachypneic Lungs: Auscultation of all lung garcia are clear without adventitious sounds, wheezes, rhonchi, or rales. Cardio: regular rate and rhythm without murmur, rubs, or gallops, no carotid bruit, no cardiac pulsations present. Abdomen: Soft distended (pt reports baseline) diffusely tender to plapation, no obvious organomegaly, or masses difficult to plapate. Bowel sounds are present in all 4 quadrants (hypoactive in rt upper, hyperactive in all others without guarding or rebound, no CVA tenderness. Patient experiences severe rectal and abd pain with diarrhea. Patient having active bouts of diarrhea during admit exam. Musculoskeletal: Muscle strength and tone are equal within normal limits, no deformity, crepitus, effusions, cyanosis, clubbing or edema present. Full range of motion intact radial and pedal pulses are normal. Skin: Pale, Warm dry and intact without rashes, ulcerations or petechiae. No diaphoresis Neuro: Alert and orientated x3, strength appears +5/5 in all extremities- although generalized weakness, sensation to touch intact, no gross deficits note d of cranial nerves. Psych: Patient has a well-kept appearance, appropriate affect, mental status a ttitude thought context and judgment are appropriate for age. Objective Labs Result Diagrams: 02/15/21 04:50 02/15/21 04:50 Labs: Laboratory Results - last 24 hr 02/14/21 02/14/21 02/14/21 16:49 16:49 16:49 WBC 7.2 RBC 3.59 L Hgb 9.5 L Hct 29.6 L MCV 82.3 MCH 26.5 MCHC 32.2 RDW 17.3 H Plt Count 229 Neut % (Auto) 97.4 H Lymph % (Auto) 1.1 L [place] % (Auto) 0.5 L Eos % (Auto) 0.6 L Baso % (Auto) 0.4 Neut # (Auto) 7000 Lymph # (Auto) 100 L [place] # (Auto) 0 Eos # (Auto) 0 Baso # (Auto) 0 Sodium 137 Potassium 3.5 Chloride 101 Carbon Dioxide 31 BUN 30 H Creatinine 1.62 H Estimated GFR 42.2 L BUN/Creatinine Ratio 18.5 Glucose 93 Lactate Calcium 9.2 Magnesium 1.5 L Total Bilirubin 0.3 AST 31 ALT 17 Alkaline Phosphatase 89 Troponin I 0.064 H NT-Pro-B Natriuret Pep Total Protein 6.3 Albumin 3.0 L Globulin 3.3 Albumin/Globulin Ratio 0.9 L Lipase 97 Procalcitonin TSH Cortisol AM Sample Urine Color Urine Appearance Urine pH Ur Specific [place] Urine Protein Urine Glucose (UA) Urine Ketones Urine Occult Blood Urine Nitrate Urine Bilirubin Urine Urobilinogen Ur Leukocyte Esterase Urine RBC Urine WBC Ur Squamous Epith Cells Ur Renal Epithelial Cell Urine Bacteria Urine Mucus Ur Culture Indicated? Nasal Screen MRSA (PCR) C. difficile Tox (PCR) SARS-CoV-2 (PCR) 02/14/21 02/14/21 02/14/21 16:49 17:10 19:13 WBC RBC Hgb Hct MCV MCH MCHC RDW Plt Count Neut % (Auto) Lymph % (Auto) [place] % (Auto) Eos % (Auto) Baso % (Auto) Neut # (Auto) Lymph # (Auto) [place] # (Auto) Eos # (Auto) Baso # (Auto) Sodium Potassium Chloride Carbon Dioxide BUN Creatinine Estimated GFR BUN/Creatinine Ratio Glucose Lactate 2.4 H 2.8 H Calcium Magnesium Total Bilirubin AST ALT Alkaline Phosphatase Troponin I NT-Pro-B Natriuret Pep Total Protein Albumin Globulin Albumin/Globulin Ratio Lipase Procalcitonin TSH Cortisol AM Sample Urine Color Urine Appearance Urine pH Ur Specific [place] Urine Protein Urine Glucose (UA) Urine Ketones Urine Occult Blood Urine Nitrate Urine Bilirubin Urine Urobilinogen Ur Leukocyte Esterase Urine RBC Urine WBC Ur Squamous Epith Cells Ur Renal Epithelial Cell Urine Bacteria Urine Mucus Ur Culture Indicated? Nasal Screen MRSA (PCR) C. difficile Tox (PCR) SARS-CoV-2 (PCR) Negative 02/14/21 02/14/21 02/14/21 19:45 22:15 22:15 WBC RBC Hgb Hct MCV MCH MCHC RDW Plt Count Neut % (Auto) Lymph % (Auto) [place] % (Auto) Eos % (Auto) Baso % (Auto) Neut # (Auto) Lymph # (Auto) [place] # (Auto) Eos # (Auto) Baso # (Auto) Sodium Potassium Chloride Carbon Dioxide BUN Creatinine Estimated GFR BUN/Creatinine Ratio Glucose Lactate Calcium Magnesium Total Bilirubin AST ALT Alkaline Phosphatase Troponin I NT-Pro-B Natriuret Pep Total Protein Albumin Globulin Albumin/Globulin Ratio Lipase Procalcitonin TSH Cortisol AM Sample Urine Color Yellow Urine Appearance Cloudy Urine pH 5.0 Ur Specific [place] 1.020 Urine Protein 2+ H Urine Glucose (UA) Trace H Urine Ketones Negative Urine Occult Blood Trace-intact Urine Nitrate Negative Urine Bilirubin Negative Urine Urobilinogen 0.2 Ur Leukocyte Esterase 2+ H Urine RBC 1-5/hpf Urine WBC 30-100/hpf H Ur Squamous Epith Cells None seen Ur Renal Epithelial Cell 1-5/hpf H Urine Bacteria None seen Urine Mucus 1+ H Ur Culture Indicated? Specimen cultured Nasal Screen MRSA (PCR) Negative for mrsa C. difficile Tox (PCR) Positive for c. diff H SARS-CoV-2 (PCR) 02/15/21 02/15/21 02/15/21 04:45 04:50 04:50 WBC 15.0 H D RBC 3.15 L Hgb 8.3 L Hct 25.9 L MCV 82.4 MCH 26.4 MCHC 32.0 RDW 17.7 H Plt Count 196 Neut % (Auto) 95.9 H Lymph % (Auto) 1.0 L [place] % (Auto) 2.5 L Eos % (Auto) 0.1 L Baso % (Auto) 0.5 Neut # (Auto) 53931 H Lymph # (Auto) 200 L [place] # (Auto) 400 Eos # (Auto) 0 Baso # (Auto) 100 Sodium 135 L Potassium 4.7 D Chloride 106 Carbon Dioxide 26 BUN 30 H Creatinine 1.61 H Estimated GFR 42.5 L BUN/Creatinine Ratio 18.6 Glucose 113 H Lactate Calcium 8.6 Magnesium 2.1 Total Bilirubin 0.2 AST 25 ALT 16 Alkaline Phosphatase 64 Troponin I 0.394 H* NT-Pro-B Natriuret Pep Total Protein 6.0 L Albumin 2.7 L Globulin 3.3 Albumin/Globulin Ratio 0.8 L Lipase Procalcitonin TSH Cortisol AM Sample 30.7 H Urine Color Urine Appearance Urine pH Ur Specific [place] Urine Protein Urine Glucose (UA) Urine Ketones Urine Occult Blood Urine Nitrate Urine Bilirubin Urine Urobilinogen Ur Leukocyte Esterase Urine RBC Urine WBC Ur Squamous Epith Cells Ur Renal Epithelial Cell Urine Bacteria Urine Mucus Ur Culture Indicated? Nasal Screen MRSA (PCR) C. difficile Tox (PCR) SARS-CoV-2 (PCR) 02/15/21 02/15/21 02/15/21 04:50 04:50 04:50 WBC RBC Hgb Hct MCV MCH MCHC RDW Plt Count Neut % (Auto) Lymph % (Auto) [place] % (Auto) Eos % (Auto) Baso % (Auto) Neut # (Auto) Lymph # (Auto) [place] # (Auto) Eos # (Auto) Baso # (Auto) Sodium Potassium Chloride Carbon Dioxide BUN Creatinine Estimated GFR BUN/Creatinine Ratio Glucose Lactate 0.9 Calcium Magnesium Total Bilirubin AST ALT Alkaline Phosphatase Troponin I 0.379 H* NT-Pro-B Natriuret Pep Total Protein Albumin Globulin Albumin/Globulin Ratio Lipase Procalcitonin 99.6 H TSH Cortisol AM Sample Urine Color Urine Appearance Urine pH Ur Specific [place] Urine Protein Urine Glucose (UA) Urine Ketones Urine Occult Blood Urine Nitrate Urine Bilirubin Urine Urobilinogen Ur Leukocyte Esterase Urine RBC Urine WBC Ur Squamous Epith Cells Ur Renal Epithelial Cell Urine Bacteria Urine Mucus Ur Culture Indicated? Nasal Screen MRSA (PCR) C. difficile Tox (PCR) SARS-CoV-2 (PCR) 02/15/21 02/15/21 04:50 04:50 WBC RBC Hgb Hct MCV MCH MCHC RDW Plt Count Neut % (Auto) Lymph % (Auto) [place] % (Auto) Eos % (Auto) Baso % (Auto) Neut # (Auto) Lymph # (Auto) [place] # (Auto) Eos # (Auto) Baso # (Auto) Sodium Potassium Chloride Carbon Dioxide BUN Creatinine Estimated GFR BUN/Creatinine Ratio Glucose Lactate Calcium Magnesium Total Bilirubin AST ALT Alkaline Phosphatase Troponin I NT-Pro-B Natriuret Pep 6110 H Total Protein Albumin Globulin Albumin/Globulin Ratio Lipase Procalcitonin TSH 0.62 Cortisol AM Sample Urine Color Urine Appearance Urine pH Ur Specific [place] Urine Protein Urine Glucose (UA) Urine Ketones Urine Occult Blood Urine Nitrate Urine Bilirubin Urine Urobilinogen Ur Leukocyte Esterase Urine RBC Urine WBC Ur Squamous Epith Cells Ur Renal Epithelial Cell Urine Bacteria Urine Mucus Ur Culture Indicated? Nasal Screen MRSA (PCR) C. difficile Tox (PCR) SARS-CoV-2 (PCR) [facility] Medical History (Updated 02/15/21 @ 03:41 by ARMANI Viera) Acquired hypothyroidism Acute dehydration Acute hypokalemia Anal squamous cell carcinoma (~02/2020) Anemia (10/13/13) Bright red rectal bleeding C. 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 Aleksandar Bay is a 70-year-old male with past medical history significant for squamous cell carcinoma of the anus, renal cell carcinoma status post nephrectomy, ulcerative colitis, adrenal insufficiency secondary to predisone, hypothyroidism, history of C diff, chronic renal failure, who presented to the ED today for increase in his crampy abd pain from his baseline from renal cancer, orthostatic dizziness, peroneal irrita tion, weakness, nausea, with retching. Admitted for sepsis with septic shock, acute respiratory failure, hypovolemia, in the setting of anal squamous cell cancer. 1. Sepsis with septic shock secondary to c.diff colitis, with ANA in the setting of CKD stage G3a, and acute respiratory failure, acute hypovolemia, in the setting of squamous cell cancer of the rectum, acute on chronic, present on admi ssion -patient was on levophed briefly overnight. Now off as of this AM. -stopped hydrocortisone, can resume home steroids. -c. diff colitis -UA also positive will start 2. ANA on CKD stage III - baseline creatinine 1.2, on admit 1.61 likely due to sepsis and hypovolemia. - continue to follow, renally dose medications. 3. acute respiratory failure with hypoxia, improved. - secondary to underlying sepsis, improved with above therapies. Continue to wean O2 as tolerated. 2. Elevated troponin, acute, likely secondary to sepsis/septic shock/ANA, present on admission -EKG demonstrated normal sinus rhythm -heparin 500 units b.i.d.-avoid Lovenox use in CKD/AAN -troponin peaked at 0.394 and downtrended. 3. Hypomagnesium, acute, present on admission, resolved -magnesium 1.5 -2 g IV rider provided, continue to monitor electrolyte levels, and cardiac irritability -once patient taking orals-continue patient's magnesium chloride 64 mg 4. Mild anemia acute on chronic, present on admission -HGB 9.5, HCT 29.6. MCV and platelets WNL. -monitor hematology -Hemoccult negative 5. Squamous cell cancer of the Rectum, acute on chronic, present on admission -managed by Dr. Quan Oncology -scheduled for resection with colostomy and plastics revision on 02/20 at [facility] by Dr. Whelan surgeon. -rectal lesion was identified on April 11, 2020 during colonoscopy performed due to blood in the stool. -patient received 5 FU and mitomycin-C the infusion pump, chemotherapy and r adiation therapy completed 07/2019 -once patient is taking orals continue gabapentin and oxycodone for related pain management 6. 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 -due to severe illness patient was given 100 mg cortisol dose in ED and will receive 50 mg IV q.6 hours times 24 hours, recommend that be followed by taperin g. -tapering: Decrease by 10mg Qday: Day 1-140 mg, day 2 130 mg, add daily 3 120 mg, day 4 110 mg, etc- Monitor & patient teaching regarding adrenal crisis-as tapering may need to be slowed. -Am Cortisol ordered- Monitor for Giselle's 7. Chronic diastolic Heart failure with preserved ejection fraction, chronic, stable, present on admission -echocardiogram completed on 06/06/2020: Normal LV size; proximal septal thickening noted. There is LVOT obstruction during Valsalva with peak velocity of 3.1 m/sec and peak gradient of 38 mm Hg. Rest V max is 1 m/sec and peak gradient of 10 mm Hg. EF is 60-65%. -chest x-ray completed- finds no acute cardiopulmonary findings including cardiomegaly or pulmonary edema. -will stop fluids once patient tapered off Levophed drip. -AM ProBNP 8. HSV infection, chronic, present on admission -patient takes famciclovir 250 mg twice daily which is not available through the hospital pharmacy. Holding meds at this time once eating Order acyclovir 400 mg twice daily for substitution. 9. GERD, acute on chronic, present on admission -Once IV protonix 40mg Given for acid reflux from steroid dose -continue Pepcid AC p.o. q.day [id number] instead of PPI due to risk of C diff recurrence. 10. Hypothyroidism, chronic, present on admission -will continue home regimen of levothyroxine 88 mcg daily. -Am TSH ordered 11. Ulcerative Colitis, chronic, present on admission --HGB 9.5, HCT 29.6. MCV and platelets WNL. -Hemoccult negative -will continue home medications of mesalamine and prednisone. Once patient is tolerating orals. Code status:Full code Surrogate decision maker: [place] COVID PCR: Negative COVID vaccination: Unknown DVT/VTE prophylaxis: Heparin 5000 units b.i.d. and SCDs Disposition: Estimated length of stay greater than 2 midnights. I have utilized all available immediate resources to obtain, update, or review the patient's current medications. I confirmed that the patient's advanced care plan is present, Code status is documented and/or surrogate decision maker is listed in the patient's medical record. Quality VTE Deep Vein Thrombosis/Pulmonary Embolism Present on Admission: No
[2021-02-15] MEDS: CALCIUM CARBONATE 500 MG TAB 1000 MG PO (13:41)
[2021-02-15] MEDS: GABAPENTIN 100 MG CAPSULE PO (15:02)
[2021-02-15] MEDS: OXYCODONE/ACETAMINOPHEN 5/325 TABLET 1 TAB PO (15:02)
[2021-02-15 16:09] LABS: Troponin I 0.247 ng/mL (0.01-0.034)
--- NOTE | 2021-02-15 17:49 | PC.NURSE ---
Patient a/o x 3. Tolerating advanced diet. Saline locked. Verbal orders given to removed Central line.
[2021-02-15] MEDS: GABAPENTIN 300 MG CAPSULE PO (20:27)
[2021-02-15] MEDS: predniSONE 5 MG TABLET 2.5 MG PO (20:27)
[2021-02-15] MEDS: HEPARIN 5,000 UNIT/ML VIAL 5000 UNIT SUBCUT (20:28)
[2021-02-15] MEDS: FAMOTIDINE 20 MG TABLET PO (20:28)
--- NOTE | 2021-02-15 22:12 | PM.PN.1 ---
Subjective Subjective Date Patient Seen: 02/15/21 Time Patient Seen: 13:00 Interval history: Feels well today, denies abdominal pain. Had a few loose bowel movements this morning which have now stopped. Exam Vital Signs (past 8 hours): - 02/15/21 16:44 02/15/21 19:50 Temperature 97.7 F 97.4 F L Pulse Rate 73 76 Respiratory Rate 18 18 Blood Pressure 124/65 119/65 Pulse Oximetry 95 97 Oxygen Delivery Method Room Air Oxygen Flow Rate 0 Narrative Exam Narrative: General: Patient is a well-developed, well-nourished delightful male, no acute distress. HEENT: Normocephalic, atraumatic, extraocular muscles intact, oral pharynx is clear and mucous membranes are moist. Neck is supple and symmetric, trachea is midline, no adenopathy, no thyroid enlargement, nontender, no masses palpated. Negative for JVD Chest: Normal AP diameter and contour without kyphoscoliosis, no nasal flaring, labored, work of breathing, or retractions Lungs: Auscultation of all lung garcia are clear without adventitious sounds, wheezes, rhonchi, or rales. Cardio: regular rate and rhythm without murmur, rubs, or gallops, no carotid bruit, no cardiac pulsations present. Abdomen: S NT and ND. Musculoskeletal: Muscle strength and tone are equal within normal limits, no deformity, crepitus, effusions, cyanosis, clubbing or edema present. Full range of motion intact radial and pedal pulses are normal. Skin: Pale, Warm dry and intact without rashes, ulcerations or petechiae. No diaphoresis Neuro: Alert and orientated x3, strength appears +5/5 in all extremities Psych: Patient has a well-kept appearance, appropriate affect, mental status attitude thought context and judgment are appropriate for age. Objective Labs Result Diagrams: 02/15/21 04:50 02/15/21 04:50 Labs: Laboratory Results - last 24 hr 02/14/21 02/14/21 02/14/21 19:45 22:15 22:15 WBC RBC Hgb Hct MCV MCH MCHC RDW Plt Count Neut % (Auto) Lymph % (Auto) Cannon % (Auto) Eos % (Auto) Baso % (Auto) Neut # (Auto) Lymph # (Auto) Cannon # (Auto) Eos # (Auto) Baso # (Auto) Sodium Potassium Chloride Carbon Dioxide BUN Creatinine Estimated GFR BUN/Creatinine Ratio Glucose Lactate Calcium Magnesium Total Bilirubin AST ALT Alkaline Phosphatase Troponin I NT-Pro-B Natriuret Pep Total Protein Albumin Globulin Albumin/Globulin Ratio Procalcitonin TSH Cortisol AM Sample Urine Color Yellow Urine Appearance Cloudy Urine pH 5.0 Ur Specific [place] 1.020 Urine Protein 2+ H Urine Glucose (UA) Trace H Urine Ketones Negative Urine Occult Blood Trace-intact Urine Nitrate Negative Urine Bilirubin Negative Urine Urobilinogen 0.2 Ur Leukocyte Esterase 2+ H Urine RBC 1-5/hpf Urine WBC 30-100/hpf H Ur Squamous Epith Cells None seen Ur Renal Epithelial Cell 1-5/hpf H Urine Bacteria None seen Urine Mucus 1+ H Ur Culture Indicated? Specimen cultured Nasal Screen MRSA (PCR) Negative for mrsa C. difficile Tox (PCR) Positive for c. diff H 02/15/21 02/15/21 02/15/21 04:45 04:50 04:50 WBC 15.0 H D RBC 3.15 L Hgb 8.3 L Hct 25.9 L MCV 82.4 MCH 26.4 MCHC 32.0 RDW 17.7 H Plt Count 196 Neut % (Auto) 95.9 H Lymph % (Auto) 1.0 L Cannon % (Auto) 2.5 L Eos % (Auto) 0.1 L Baso % (Auto) 0.5 Neut # (Auto) 46111 H Lymph # (Auto) 200 L Cannon # (Auto) 400 Eos # (Auto) 0 Baso # (Auto) 100 Sodium 135 L Potassium 4.7 D Chloride 106 Carbon Dioxide 26 BUN 30 H Creatinine 1.61 H Estimated GFR 42.5 L BUN/Creatinine Ratio 18.6 Glucose 113 H Lactate Calcium 8.6 Magnesium 2.1 Total Bilirubin 0.2 AST 25 ALT 16 Alkaline Phosphatase 64 Troponin I 0.394 H* NT-Pro-B Natriuret Pep Total Protein 6.0 L Albumin 2.7 L Globulin 3.3 Albumin/Globulin Ratio 0.8 L Procalcitonin TSH Cortisol AM Sample 30.7 H Urine Color Urine Appearance Urine pH Ur Specific Hu[place] Urine Protein Urine Glucose (UA) Urine Ketones Urine Occult Blood Urine Nitrate Urine Bilirubin Urine Urobilinogen Ur Leukocyte Esterase Urine RBC Urine WBC Ur Squamous Epith Cells Ur Renal Epithelial Cell Urine Bacteria Urine Mucus Ur Culture Indicated? Nasal Screen MRSA (PCR) C. difficile Tox (PCR) 02/15/21 02/15/21 02/15/21 04:50 04:50 04:50 WBC RBC Hgb Hct MCV MCH MCHC RDW Plt Count Neut % (Auto) Lymph % (Auto) Cannon % (Auto) Eos % (Auto) Baso % (Auto) Neut # (Auto) Lymph # (Auto) Cannon # (Auto) Eos # (Auto) Baso # (Auto) Sodium Potassium Chloride Carbon Dioxide BUN Creatinine Estimated GFR BUN/Creatinine Ratio Glucose Lactate 0.9 Calcium Magnesium Total Bilirubin AST ALT Alkaline Phosphatase Troponin I 0.379 H* NT-Pro-B Natriuret Pep Total Protein Albumin Globulin Albumin/Globulin Ratio Procalcitonin 99.6 H TSH Cortisol AM Sample Urine Color Urine Appearance Urine pH Ur Specific Hu[place] Urine Protein Urine Glucose (UA) Urine Ketones Urine Occult Blood Urine Nitrate Urine Bilirubin Urine Urobilinogen Ur Leukocyte Esterase Urine RBC Urine WBC Ur Squamous Epith Cells Ur Renal Epithelial Cell Urine Bacteria Urine Mucus Ur Culture Indicated? Nasal Screen MRSA (PCR) C. difficile Tox (PCR) 02/15/21 02/15/21 02/15/21 04:50 04:50 15:39 WBC RBC Hgb Hct MCV MCH MCHC RDW Plt Count Neut % (Auto) Lymph % (Auto) Cannon % (Auto) Eos % (Auto) Baso % (Auto) Neut # (Auto) Lymph # (Auto) Cannon # (Auto) Eos # (Auto) Baso # (Auto) Sodium Potassium Chloride Carbon Dioxide BUN Creatinine Estimated GFR BUN/Creatinine Ratio Glucose Lactate Calcium Magnesium Total Bilirubin AST ALT Alkaline Phosphatase Troponin I 0.247 H* NT-Pro-B Natriuret Pep 6110 H Total Protein Albumin Globulin Albumin/Globulin Ratio Procalcitonin TSH 0.62 Cortisol AM Sample Urine Color Urine Appearance Urine pH Ur Specific Hu[place] Urine Protein Urine Glucose (UA) Urine Ketones Urine Occult Blood Urine Nitrate Urine Bilirubin Urine Urobilinogen Ur Leukocyte Esterase Urine RBC Urine WBC Ur Squamous Epith Cells Ur Renal Epithelial Cell Urine Bacteria Urine Mucus Ur Culture Indicated? Nasal Screen MRSA (PCR) C. difficile Tox (PCR) [facility] Medical History (Updated 02/15/21 @ 03:41 by ARMANI Viera) Acquired hypothyroidism Acute dehydration Acute hypokalemia Anal squamous cell carcinoma (~02/2020) Anemia (10/13/13) Bright red rectal bleeding C. 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 Aleksandar Bay is a 70-year-old male with past medical history significant for squamous cell carcinoma of the anus, renal cell carcinoma status post nephrectomy, ulcerative colitis, adrenal insufficiency secondary to predisone, hypothyroidism, history of C diff, chronic renal failure, who presented to the ED today for increase in his crampy abd pain from his baseline from renal cancer, orthostatic dizziness, peroneal irritation, weakness, nausea, with retching. Admitted for sepsis with septic shock, acute respiratory failure, hypovolemia, in the setting of anal squamous cell cancer. 1. Sepsis with septic shock secondary to c.diff colitis, with ANA in the setting of CKD stage G3a, and acute respiratory failure, acute hypovolemia, in the setting of squamous cell cancer of the rectum, acute on chronic, present on admission -patient was on levophed briefly overnight. Now off as of this AM. -stopped hydrocortisone, can resume home steroids. -c. diff colitis -UA also positive will start macrobid based on fluoroquinolone and cefazolin allergies. Follow up urine cultures. Given CKD bactrim not ideal either. 2. ANA on CKD stage III - baseline creatinine 1.2, on admit 1.61 likely due to sepsis and hypovolemia. - continue to follow, renally dose medications. 3. acute respiratory failure with hypoxia, improved. - secondary to underlying sepsis, improved with above therapies. Continue to wean O2 as tolerated. 2. Elevated troponin, acute, likely secondary to sepsis/septic shock/ANA, present on admission -EKG demonstrated normal sinus rhythm -heparin 500 units b.i.d.-avoid Lovenox use in CKD/ANA -troponin peaked at 0.394 and downtrended. 3. Hypomagnesium, acute, present on admission, resolved -magnesium 1.5 -2 g IV rider provided, continue to monitor electrolyte levels, and cardiac irritability -once patient taking orals-continue patient's magnesium chloride 64 mg 4. Mild anemia acute on chronic, present on admission -HGB 9.5, HCT 29.6. MCV and platelets WNL. -monitor hematology -Hemoccult negative 5. Squamous cell cancer of the Rectum, acute on chronic, present on admission -managed by Dr. Qu[facility] -scheduled for resection with colostomy and plastics revision on 02/20 at [facility] by Dr. Whelan surgeon. -rectal lesion was identified on April 11, 2020 during colonoscopy performed due to blood in the stool. -patient received 5 FU and mitomycin-C the infusion pump, chemotherapy and radiation therapy completed 07/2019 - continue gabapentin and oxycodone for related pain management 6. 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 This was ended earlier than 24 hours given AM cortisol was 30 and patient started on his home prednisone. 7. Chronic diastolic Heart failure with preserved ejection fraction, chronic, stable, present on admission -echocardiogram completed on 06/06/2020: Normal LV size; proximal septal thickening noted. There is LVOT obstruction during Valsalva with peak velocity of 3.1 m/sec and peak gradient of 38 mm Hg. Rest V max is 1 m/sec and peak gradient of 10 mm Hg. EF is 60-65%. -chest x-ray completed- finds no acute cardiopulmonary findings including cardiomegaly or pulmonary edema. 8. HSV infection, chronic, present on admission -patient takes famciclovir 250 mg twice daily, can continue. 9. GERD, acute on chronic, present on admission -Once IV protonix 40mg Given for acid reflux from steroid dose -continue Pepcid AC p.o. q.day [id number] instead of PPI due to risk of C diff recurrence. 10. Hypothyroidism, chronic, present on admission -will continue home regimen of levothyroxine 88 mcg daily. 11. Ulcerative Colitis, chronic, present on admission --HGB 9.5, HCT 29.6. MCV and platelets WNL. -Hemoccult negative -will continue home medications of mesalamine and prednisone. Code status:Full code Surrogate decision maker: [place] COVID PCR: Negative COVID vaccination: Unknown DVT/VTE prophylaxis: Heparin 5000 units b.i.d. Disposition: If BP remains okay and continued improvement may be able to discharge home as soon as tomorrow. I have utilized all available immediate resources to obtain, update, or review the patient's current medications. I confirmed that the patient's advanced care plan is present, Code status is documented and/or surrogate decision maker is listed in the patient's medical record. Quality VTE Deep Vein Thrombosis/Pulmonary Embolism Present on Admission: No
[2021-02-16 01:20] VITALS: BP 140/75; PULSE 78; RESP 14; TEMP 36.2; O2SAT 98
[2021-02-16] MEDS: VANCOMYCIN 125 MG CAPSULE PO ×2 (01:36→08:32)
[2021-02-16 04:26] VITALS: BP 144/80; PULSE 73; RESP 18; TEMP 36.3; O2SAT 96
[2021-02-16] MEDS: LEVOTHYROXINE 88 MCG TABLET PO (05:12)
[2021-02-16 05:40] LABS: Add Manual Diff / Slide Review NO; Basophils Absolute Auto 0 /uL (0-100); Basophils Percent Auto 0.5 % (0-2); Eosinophils Absolute Auto 100 /uL (0-450); Hematocrit 23.5 % (41-53); Hemoglobin 7.6 g/dL (13.5-17.5); Lymphocytes Absolute Auto 300 /uL (1100-4500); Lymphocytes Percent Auto 3.8 % (25-40); Mean Corpuscular HGB Conc 32.3 % (30-36); Mean Corpuscular Hemoglobin 26.6 PG (26-34); Mean Corpuscular Volume 82.4 fL (80-100); Monocytes Absolute Auto 300 /uL (0-900); Monocytes Percent Auto 3.5 % (3-14); Neutrophils Absolute Auto 6900 /uL (1500-7000); Neutrophils Percent Auto 91.2 % (50-75); Platelet Count 178 X10^3/uL (150-400); Red Blood Cell Count 2.85 X10^6/uL (4.5-5.9); Red Cell Distribution Width 17.2 % (11.6-14.8); White Blood Cell Count 7.6 X10^3/uL (4.5-11.0)
[2021-02-16 06:04] LABS: Alanine Aminotransferase 15 IU/L (<50); Albumin 2.6 g/dL (3.5-5.0); Albumin Globulin Ratio 0.8 (1.0-2.8); Alkaline Phosphatase 65 U/L (38-126); Aspartate Aminotransferase 23 IU/L (17-59); BUN Creatinine Ratio 22.7 (6-22); Blood Urea Nitrogen 34 mg/dL (9-20); Calcium 8.4 mg/dL (8.4-10.2); Carbon Dioxide 26 mmol/L (22-32); Chloride 106 mmol/L (98-107); Estimated Glomerular Filt Rate 46.1 mL/min (>60); Globulin 3.2 g/dL (1.7-4.1); Glucose 99 mg/dL (80-110); HEMOLYSIS < 15 (0-50); Magnesium 2.1 mg/dL (1.6-2.3); Sodium 136 mmol/L (137-145); Total Protein 5.8 g/dL (6.3-8.2)
[2021-02-16 06:23] LABS: Bilirubin Total < 0.1 mg/dL (0.2-1.3)
[2021-02-16 07:49] VITALS: BP 127/75; PULSE 65; RESP 17; TEMP 36.4; O2SAT 98
--- NOTE | 2021-02-16 07:53 | PM.DS.1 ---
History of Present Illness History of Present Illness Date Patient Seen: 02/16/21 Time Patient Seen: 07:53 Chief complaint: Feeling Ill, worsening condition Narrative: Per Irene Aldana, [facility]-: Mr. Aleksandar Bay is a 70-year-old male with past medical history significant for squamous cell carcinoma of the anus, renal cell carcinoma status post nephrectomy, ulcerative colitis, adrenal insufficiency secondary to predisone, hypothyroidism, history of C diff, chronic renal failure, who presented to the ED today for increase in his crampy abd pain from his baseline from renal cancer, orthostatic dizziness, peroneal irritation, weakness, nausea, with retching with nothing in his stomach to vomit which developed today. The patient completed chemo and radiation tx 07/2019 for anal cancer (chemotherapy with 5 FU and mitomycin-C). Patient's PCP Dr. Collins, Dr. Quan oncologist, and Dr. Whelan Surgeon. Patient denies complaints of fevers or chills, flu or cold symptoms and has had no COVID-19 exposures. He is complaining of severe acute onset heartburn following large does steroids provided in ED. He denies complaints of chest pain or palpitations, shortness of breath cough or wheezing. The patient denies urinary symptoms. He is scheduled for resection with colostomy and plastics revision on 02/20 at [facility] by Dr. Whelan. He has had very little intake, not eating or drinking well, unable to describe duration. Patient reported in ED no diarrhea recently, immediately after admit to the ICU patient had formed brown stool negative for blood, but then quickly developed multiple episodes of diarrhea. Patient's vitals upon admit patient was hypotensive in septic shock, tachypneic, in acute respiratory failure temp was 97.3?, BP in 61/44, HR 82, RR 27, O2 saturation 97% on 2 L nasal cannula. Patient was placed on Levophed drip in the ED, 60 minute critical care bedside ICU admit in addition to tele ICU consult:Dr. Flaherty. Dr. Mclaughlin and Dr. Middleton consulted- Dr. Middleton placed right subclavian central line. Patient received 2 L of LR/2 L NS in ED, LR @200cc/hr, 100mg hydrocortisone IV stress dose. Titrated Levophed up to 10 mcg BP improved to 123/55 and patient stablized. Patient's continued complaint was severe acid reflux, nausea and retching with the inability to produce vomit and mutile uncontrollable bouts of diarrhea. Patient demonstrated some mild anemia chronic anemia HGB 9.5, HCT 29.6. MCV and platelets WNL. Without WBC or neutrophil elevation. BUN 30, creatinine 1.62 up from 1.2, GFR 42.2 down from 59.3, lactate 2.8, albumin 3.0, hypomagnesium 1.5, lipase WNL. Sofa score:6. Patient's EKG demonstrated normal sinus rhythm, ventricular rate of 84, but with low-voltage QRS 78, possibly suggestive of septal infarct, patient's initial troponin 0.064, heart score:6. Patient placed on tele and demonstrated consistent normal sinus rhythm. Patient denies chest pain, shortness of breath, diaphoresis at this time. Patient admitted for sepsis with septic shock, acute respiratory failure, hypovolemia, in the setting of anal squamous cell cancer. Discharge Providers Provider Date of admission: 02/14/21 19:40 Discharge Date: 02/16/21 Primary care physician: Monica Collins DO Discharge provider: Isaias Zaidi DO Summary Hospital Course Discharge Diagnosis: Please see hospital course by problem list noted below. Hospital Course: Mr. 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 Admitted for sepsis with septic shock, acute respiratory failure, hypovolemia, in the setting of anal squamous cell cancer ultimately found to be secondary to c. diff colitis. 1. Sepsis with septic shock secondary to c.diff colitis, with ANA in the setting of CKD stage G3a, and acute respiratory failure, acute hypovolemia, in the setting of squamous cell cancer of the rectum, acute on chronic, present on admission -patient was on levophed temporarily for continued hypotension. quickly weaned off. -stress dose steroids given initially given hypotension, further discussed below. resumed home steroids. -c. diff colitis treated with oral vancomycin. -UA also positive will start macrobid based on fluoroquinolone and cefazolin allergies. Follow up urine cultures. Given CKD bactrim not ideal either. 2. ANA on CKD stage III - baseline creatinine 1.2, on admit 1.61 likely due to sepsis and hypovolemia. Improved slowly to 1.5 on the day of discharge. - continue to follow, renally dose medications. 3. acute respiratory failure with hypoxia, resolved - secondary to underlying sepsis, improved with above therapies. 2. Elevated troponin, acute, likely secondary to sepsis/septic shock/ANA, present on admission -EKG demonstrated normal sinus rhythm without ischemic changes, no chest pain. -troponin peaked at 0.394 and downtrended. 3. Hypomagnesium, acute, present on admission, resolved - Mg was repleted during his inital hospital course. 4. Mild anemia acute on chronic, present on admission -HGB 9.5 declined to 7.6 likely due to fluids in sepsis. He had no hematochezia, melena or hematemesis. Patient was further asymtomatic. Recommend repeat CBC at PCP follow up or follow up with his surgeon. 5. Squamous cell cancer of the Rectum, acute on chronic, present on admission -managed by Dr. Quan Oncology -scheduled for resection with colostomy and plastics revision on 02/20 at [facility] by Dr. Whelan surgeon. Patient was advised to discuss with his surgeons office his C. diff colitis as this will likely delay his surgery. -rectal lesion was identified on April 11, 2020 during colonoscopy performed due to blood in the stool. -patient received 5 FU and mitomycin-C the infusion pump, chemotherapy and radiation therapy completed 07/2019 - continue gabapentin and oxycodone for related pain management 6. 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 This was ended earlier than 24 hours given AM cortisol was 30 and patient started on his home prednisone. 7. Chronic diastolic Heart failure with preserved ejection fraction, chronic, stable, present on admission -echocardiogram completed on 06/06/2020: Normal LV size; proximal septal thickening noted. There is LVOT obstruction during Valsalva with peak velocity of 3.1 m/sec and peak gradient of 38 mm Hg. Rest V max is 1 m/sec and peak gradient of 10 mm Hg. EF is 60-65%. -chest x-ray completed- finds no acute cardiopulmonary findings including cardiomegaly or pulmonary edema. 8. HSV infection, chronic, present on admission -patient takes famciclovir 250 mg twice daily, can continue. 9. GERD, acute on chronic, present on admission 10. Hypothyroidism, chronic, present on admission - continue home regimen of levothyroxine 88 mcg daily. 11. Ulcerative Colitis, chronic, present on admission continue home medications of mesalamine and prednisone. Code status:Full code Surrogate decision maker: Elizabeth Bay Time Spent with Patient Time spent: Greater than 30 minutes Exam Vital Signs (past 8 hours): - 02/16/21 01:20 02/16/21 04:26 Temperature 97.1 F L 97.3 F L Pulse Rate 78 73 Respiratory Rate 14 18 Blood Pressure 140/75 144/80 H Pulse Oximetry 98 96 Oxygen Delivery Method Room Air Oxygen Flow Rate 0 Narrative Exam Narrative: General: Patient is a well-developed, well-nourished delightful male, no acute distress. HEENT: Normocephalic, atraumatic, extraocular muscles intact, oral pharynx is clear and mucous membranes are moist. Neck is supple and symmetric, trachea is midline, no adenopathy, no thyroid enlargement, nontender, no masses palpated. Negative for JVD Chest: Normal AP diameter and contour without kyphoscoliosis, no nasal flaring, labored, work of breathing, or retractions Lungs: Auscultation of all lung garcia are clear without adventitious sounds, wheezes, rhonchi, or rales. Cardio: regular rate and rhythm without murmur, rubs, or gallops, no carotid bruit, no cardiac pulsations present. Abdomen: S NT and ND. Musculoskeletal: Muscle strength and tone are equal within normal limits, no deformity, crepitus, effusions, cyanosis, clubbing or edema present. Full range of motion intact radial and pedal pulses are normal. Skin: Pale, Warm dry and intact without rashes, ulcerations or petechiae. No diaphoresis Neuro: Alert and orientated x3, strength appears +5/5 in all extremities Psych: Patient has a well-kept appearance, appropriate affect, mental status attitude thought context and judgment are appropriate for age. Objective Labs Result Diagrams: 02/16/21 05:15 02/16/21 05:15 Labs: Laboratory Results - last 24 hr 02/15/21 02/15/21 02/16/21 04:45 15:39 05:15 WBC 7.6 RBC 2.85 L Hgb 7.6 L Hct 23.5 L MCV 82.4 MCH 26.6 MCHC 32.3 RDW 17.2 H Plt Count 178 Neut % (Auto) 91.2 H Lymph % (Auto) 3.8 L [place] % (Auto) 3.5 Eos % (Auto) 1.0 L Baso % (Auto) 0.5 Neut # (Auto) 6900 Lymph # (Auto) 300 L [place] # (Auto) 300 Eos # (Auto) 100 Baso # (Auto) 0 Sodium Potassium Chloride Carbon Dioxide BUN Creatinine Estimated GFR BUN/Creatinine Ratio Glucose Calcium Magnesium Total Bilirubin AST ALT Alkaline Phosphatase Troponin I 0.394 H* 0.247 H* Total Protein Albumin Globulin Albumin/Globulin Ratio 02/16/21 05:15 WBC RBC Hgb Hct MCV MCH MCHC RDW Plt Count Neut % (Auto) Lymph % (Auto) [place] % (Auto) Eos % (Auto) Baso % (Auto) Neut # (Auto) Lymph # (Auto) [place] # (Auto) Eos # (Auto) Baso # (Auto) Sodium 136 L Potassium 4.0 Chloride 106 Carbon Dioxide 26 BUN 34 H Creatinine 1.50 H Estimated GFR 46.1 L BUN/Creatinine Ratio 22.7 H Glucose 99 Calcium 8.4 Magnesium 2.1 Total Bilirubin < 0.1 L AST 23 ALT 15 Alkaline Phosphatase 65 Troponin I Total Protein 5.8 L Albumin 2.6 L Globulin 3.2 Albumin/Globulin Ratio 0.8 L [facility] Medical History (Updated 02/15/21 @ 03:41 by CRISTOBAL Viera-) Acquired hypothyroidism Acute dehydration Acute hypokalemia Anal squamous cell carcinoma (~02/2020) Anemia (10/13/13) Bright red rectal bleeding C. 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 Syncope Ulcerative colitis Ventral hernia without obstruction or gangrene (08/07/16) Surgical History Fractures History of neck surgery (~2006) History of nephrectomy (~08/2015) History of third molar tooth extraction History of tonsillectomy (~1955) History of tonsillectomy (~1956) History of tonsillectomy (~1959) Status post colonoscopy Family History Mother Congestive heart failure Father Liver failure Alzheimer's dementia Social History household members: spouse Smoking Status: Former smoker alcohol intake: never Discharge Plan Discharge Plan Patient Disposition: Home Provider Discharge Comment: You were admitted to the hospital with a severe infection, rapidly improved. Your BP is improved. Your blood counts (Hg) are a bit lower but no signs of bleeding. Please repeat studies next week with your PCP if able. You are being discharged with two oral antibiotics. C. diff treatment with oral vancomycin, and macrobid for a possible UTI. Discharge orders & Medications Prescriptions: New nitrofurantoin monohyd/m-cryst [Macrobid] 100 mg Capsule 100 mg PO BID 4 Days Qty: 8 RF: 0 vancomycin 125 mg Capsule 125 mg PO Q6H 13 Days Qty: 52 RF: 0 Continued prednisone 5 mg tablet 2.5 mg PO BID RF: 0 magnesium chloride 64 mg tablet,delayed release (DR/EC) 64 mg PO DAILY Qty: 30 RF: 1 oxycodone-acetaminophen 5-325 mg tablet See Rx Instructions PO BEDTIME PRN (Reason: Pain, Moderate (4-6)) Qty: 30 RF: 0 famciclovir 250 mg tablet See Rx Instructions .ROUTE .COMPLEX Qty: 180 RF: 3 gabapentin 100 mg capsule 100 mg PO .COMPLEX MDD 500 Qty: 150 RF: 0 (DME) miscellaneous medical supply Misc See Rx Instructions .ROUTE .MEDSUPPLY Qty: 1 RF: 0 levothyroxine [Euthyrox] 88 mcg tablet 88 mcg PO DAILY RF: 0 mesalamine [Lialda] 1.2 gram Tablet,Delayed Release (Dr/Ec) 1.2 g PO BID RF: 0 Medication counseling provided by Pharmacist: Yes Follow up/Referrals: Monica Collins DO [Primary Care Provider] - Diet/Activity/Treatments Diet: Diet as Tolerated Activity: As tolerated Discharge Data Primary Care Provider: Monica Collins Quality VTE Deep Vein Thrombosis/Pulmonary Embolism Present on Admission: No MIPS - DC The patient has current or prior documentation of left ventricular ejection fraction (LVEF) less than 40%, or moderate or severely depressed left ventricular systolic function.: No
[2021-02-16] MEDS: HEPARIN 5,000 UNIT/ML VIAL 5000 UNIT SUBCUT (08:33)
[2021-02-16] MEDS: MAGNESIUM CHLORIDE 64 MG TABLET PO (08:33)
[2021-02-16] MEDS: OXYCODONE/ACETAMINOPHEN 5/325 TABLET 1 TAB PO (08:34)
[2021-02-16] MEDS: predniSONE 5 MG TABLET 2.5 MG PO (08:34)
[2021-02-16] MEDS: NITROFURANTOIN ER 100 MG CAPSULE PO (08:34)
[2021-02-16] MEDS: CALCIUM CARBONATE 500 MG TAB 1000 MG PO (08:34)
[2021-02-16] MEDS: GABAPENTIN 100 MG CAPSULE PO (08:38)
--- NOTE | 2021-02-16 09:30 | CM.IDA ---
Initial DCP Assessment Note Pt is a 71 yo male, resident of [place], presents feeling ill, found to be in septic shock sec to c diff infection. 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 Patient familiar to this BLADDER TIER from prior admission, admitted obs d/t persistent diarrhea. Patient lives w/spouse, mostly indp. at baseline. States he has been through a lot medically and has upcoming surgery, patient is scheduled for resection with colostomy and plastics revision on 02/20 at [facility] by Dr. Whelan. Patient denies needs from this BLADDER TIER at this time, plans to return home w/spouse to transport and assist once home. No needs expected from DC planning team although will remain available in case this changes before DC. NONI Davidson Discharge Planning/Care Management CM Discharge Assessment Start: 02/16/21 09:26 Freq: Status: Active Protocol: Document 02/16/21 09:27 ALANA (Rec: 02/16/21 09:30 ALANA [id number]) Discharge Planning Assessment Assigned [employer] NONI Ramos DPOA/Assigned Designee Name Shelli Bay, spouse Contact Information [phone] Advance Directives? Yes: at home per /will bring in later Advance Directives on File No History Provided By Patient,Medical Record Prior Living Arrangements House Household Members spouse Independent with ADL's Yes Is patient alert and oriented? Yes Barriers to Discharge No Comment Likely return home w/spouse. Extensive abd. surgery scheduled for next Friday at [facility]. Discharge Plan Home Transportation Arrangement Family Referrals Initiated None needed Additional Comment h/o johanny MANCUSO
[2021-02-16] MEDS: Mesalamine [Lialda] 1.2 gram Tablet,Delayed Release 1.2 EACH PO (09:33)
[2021-02-16 11:30] VITALS: BP 113/67; PULSE 68; RESP 17; TEMP 36.4; O2SAT 98
--- NOTE | 2021-02-16 14:02 | PC.NURSE ---
Patient a/o x 3. Lungs CTA, 98-100% RA. Denies weakness, chest pain, SOB, dizziness or lightheadedness. Patient tolerating diet. Denies loose stools today. Tele removed for discharge, IV removed for discharge. Patient tolerated. Patient given discharge instructions regarding f/u with PCP, medications and s/s of worsening condition. Patient verbalized understanding. Refused the Patient Health Summary. Patient discharged via wheelchair with aide assist. Denied further questions or concerns.
[2021-02-16 16:29] LABS: C difficie Toxins A and B, EIA Negative (Negative)
== END 2021-02-16 13:55 | disposition home or self-care (01) | DRG 871 ==
LOC: ED 19:36 → ICU 02-15 07:36 → AC 02-15 15:46 → ICU 02-15 15:51
PROVIDERS: Admitting Provider Nurse Practitioner Family; Emergency Provider Emergency Medicine; PCP Family Medicine; Referring Provider Emergency Medicine; Visit Provider Nurse Practitioner Family
DX: A41.9 Sepsis, unspecified organism (principal); R65.21 Severe sepsis with septic shock; J96.00 Acute respiratory failure, unspecified whether with hypoxia or hypercapnia; N17.9 Acute kidney failure, unspecified; A04.71 Enterocolitis due to Clostridium difficile, recurrent; I50.32 Chronic diastolic (congestive) heart failure; K51.90 Ulcerative colitis, unspecified, without complications; C20 Malignant neoplasm of rectum; E27.3 Drug-induced adrenocortical insufficiency; E86.1 Hypovolemia; E83.42 Hypomagnesemia; B00.9 Herpesviral infection, unspecified; R79.89 Other specified abnormal findings of blood chemistry; T38.0X5A Adverse effect of glucocorticoids and synthetic analogues, initial encounter; N18.31 Chronic kidney disease, stage 3a; E03.9 Hypothyroidism, unspecified; Z20.822 Contact with and (suspected) exposure to COVID-19; Z87.891 Personal history of nicotine dependence
CPT/HCPCS: 36415; 36592; 71045; 74018; 80053; 81001; 82533; 82962; 83605; 83690; 83735; 83880; 84145; 84443; 84484; 85025; 87040; 87086; 87324; 87493; 87635; 87797; 93005; 93010; 93306; 96361; 96374; 99284; 99285; C9803; A9270; C9113; J0744; J1644; J1720; J2405; J3010; J3475

== ENCOUNTER → 2021-02-17 09:05 | Outpatient (CLI) | payer MEDICARE, SELFPAY ==
[2021-02-14 19:49] VITALS: BMI 34.0
[2021-02-17 12:23] LABS: COVID19 -Nasal RAPID Negative (Negative)
== END ==
PROVIDERS: PCP Family Medicine; Visit Provider Nurse Practitioner
DX: Z01.812 Encounter for preprocedural laboratory examination (principal); Z20.822 Contact with and (suspected) exposure to COVID-19
CPT/HCPCS: 87635; C9803